=== PATIENT | male | born 1945 | race African-American/Black ===

== ENCOUNTER 2017-04-03 08:32 | Inpatient (IN) | payer OTHER, MEDICARE ==
[~2017-04-03] VITALS: Ht 167.6 cm; Wt 75.8 kg
[2017-04-03] VITALS (8 sets, daily range): BP systolic 119–142; BP diastolic 74–88; PULSE 85–135; RESP 18–26; TEMP 97.2–97.7; O2SAT 91–96
[~2017-04-03 08:32] MED LIST: LASI20TA PO; METO25CR PO; POTA-243
[2017-04-03] MEDS ORDERED: SODIUM CHLORIDE 0.9% FLUSH 10 ML FLUSH IVF PRN (09:00)
[2017-04-03 09:27] LABS: AUTOMATED NEUTROPHIL # 4.2 TH/MM3 (1.8-7.7); BASOPHIL # 0.1 TH/MM3 (0-0.2); EOSINOPHIL # 0.1 TH/MM3 (0-0.4); EOSINOPHIL % 2.1 % (0.0-4.0); HEMATOCRIT 52.5 % (39.0-51.0); HEMOGLOBIN 17.1 GM/DL (13.0-17.0); LYMPH % 21.8 % (9.0-44.0); LYMPHOCYTE # 1.4 TH/MM3 (1.0-4.8); MEAN CELL VOLUME 89.4 FL (80.0-100.0); MEAN CORPUSCULAR HEMOGLOBIN 29.2 PG (27.0-34.0); MEAN CORPUSCULAR HGB CONC 32.7 % (32.0-36.0); MEAN PLATELET VOLUME 8.3 FL (7.0-11.0); MONO % 10.1 % (0.0-8.0); MONOCYTE # 0.6 TH/MM3 (0-0.9); PLATELET COUNT 256 TH/MM3 (150-450); RED BLOOD COUNT 5.87 MIL/MM3 (4.50-5.90); RED CELL DISTRIBUTION WIDTH 16.7 % (11.6-17.2); WHITE BLOOD COUNT 6.4 TH/MM3 (4.0-11.0)
[2017-04-03 09:36] LABS: INTERNATIONAL NORMALIZED RATIO 1.2 RATIO
--- NOTE | 2017-04-03 09:36 | RADRPT ---
EXAM DATE/TIME: 04/03/2017 09:20 [place] COMPARISON: No previous studies available for comparison. INDICATIONS : Short of breath. MEDICAL HISTORY : not known SURGICAL HISTORY : not known ENCOUNTER: Initial ACUITY: 1 day PAIN SCORE: Non-responsive. LOCATION: Bilateral chest FINDINGS: A single view of the chest demonstrates a small amount of airspace disease in the right midlung zone. Questionable small foci of the right lung base.. The cardiomediastinal contours are unremarkable. Osseous structures are intact. CONCLUSION: Minimal air space disease both in the right midlung field and right lung base could be areas of pneum onia. Amari Thomas MD on April 03, 2017 at 9:33 Board Certified Radiologist. This report was verified electronically.
[2017-04-03 09:55] LABS: ALBUMIN 2.5 GM/DL (3.4-5.0); ALKALINE PHOSPHATASE 125 U/L (45-117); ALT (GPT) 27 U/L (12-78); AST (GOT) 44 U/L (15-37); BICARBONATE 25.9 MEQ/L (21.0-32.0); BLOOD UREA NITROGEN 12 MG/DL (7-18); CALCIUM 8.8 MG/DL (8.5-10.1); CHLORIDE 102 MEQ/L (98-107); CREATININE 1.15 MG/DL (0.60-1.30); GLOMERULAR FILTRATION RATE 76 ML/MIN (>89); GLUCOSE,RANDOM 81 MG/DL (74-106); MAGNESIUM 1.9 MG/DL (1.5-2.5); SODIUM (NA) 136 MEQ/L (136-145); TOTAL BILIRUBIN ADULT 0.9 MG/DL (0.2-1.0); TROPONIN I LESS THAN 0.02 NG/ML (0.02-0.05)
[2017-04-03 09:56] LABS: TOTAL PROTEIN 8.3 GM/DL (6.4-8.2)
[2017-04-03] MEDS ORDERED: KETOROLAC TROMETHAMINE 30 MG/ML (IVP) VIAL IV PUSH ONE (10:30)
[2017-04-03] MEDS ORDERED: ACETAMINOPHEN 325 MG TAB PO ONE (10:30)
[2017-04-03] MEDS ORDERED: DILTIAZEM HCL 25 MG/5 ML VIAL IV ONE (10:30)
--- NOTE | 2017-04-03 10:54 | PD ---
HPI Chief Complaint: Skin Problem Time Seen by Provider: 08:52 Travel History International Travel<30 days: No Contact w/Intl Traveler<30days: No Traveled to known affect area: No History of Present Illness HPI The patient arrives to [place] from the [place] due to lower extremity edema. He is 72 years old. Ulcerations of chronic lower extremity wounds observed which the patient states are quite painful. They are constant. Worse with palpation as reported. The patient also reports some shortness of breath. He has no chest pain or cough or fever to report. No nausea vomiting or abdominal pain. Lower extremity edema is constant and gradually worsening. Past medical history includes COPD, CHF, hypertension and hyperlipidemia and reportedly "prediabetes. " PFSH Past Medical History Arthritis: Yes Cancer: No High Cholesterol: Yes Chest Pain: Yes Congestive Heart Failure: Yes COPD: Yes Endocrine: Yes (?PREDIABETES) Genitourinary: No Headaches: Yes Hypertension: Yes Immune Disorder: No Psychiatric: No Reproductive: No Respiratory: Yes Past Surgical History Body Medical Devices: PT DENIES Social History Alcohol Use: No Tobacco Use: No Substance Use: No Allergies-Medications (Allergen,Severity, Reaction): Coded Allergies: Penicillins (Verified Allergy, Unknown, 04/03/17) Reported Meds & Prescriptions Reported Meds & Active Scripts Active No Active Prescriptions or Reported Medications Review of Systems Except as stated in HPI: all other systems reviewed are Neg General / Constitutional: No: Fever Respiratory: Positive: Shortness of Breath Physical Exam Narrative GENERAL: 72-year-old male, no acute distress sitting upright in bed speaking full sentences SKIN: Warm and dry. There are areas of unroofed epidermis on the lower extremities 1 is approximately 7 cm wide well-circumscribed with a focus of what appears to be a blister appearance in the base of the ulcer is otherwise beefy red. On the right lower extremity there is a beefy red well-demarcated unroofing epidermis. HEAD: Nontraumatic. Normocephalic. EYES: Pupils equal and round. No scleral icterus. No injection or drainage. ENT: No nasal bleeding or discharge. Mucous membranes pink and moist. NECK: Trachea midline. No JVD. CARDIOVASCULAR: Irregular. Rate 130. RESPIRATORY: Minimal tachypnea at a rate of about 22 breaths per minute. GASTROINTESTINAL: Abdomen soft, non-tender, nondistended. Hepatic and splenic margins not palpable. MUSCULOSKELETAL: 4+ pitting edema bilaterally. No gross deformity otherwise. Wounds as described above. NEUROLOGICAL: Awake and alert. No obvious cranial nerve deficits. Motor grossly within normal limits. Five out of 5 muscle strength in the arms and legs. Normal speech. PSYCHIATRIC: Appropriate mood and affect; insight and judgment normal. Data Data Last Documented VS Vital Signs Date Time Temp Pulse Resp B/P (MAP) Pulse Ox O2 Delivery O2 Flow Rate FiO2 04/03/17 09:14 96 Nasal Cannula 2.00 04/03/17 08:46 97.7 135 26 142/86 (104) Vital signs reviewed Orders Orders Complete Blood Count With Diff (04/03/17 08:59) Comprehensive Metabolic Panel (04/03/17 08:59) B-Type Natriuretic Peptide (04/03/17 08:59) Act Partial Throm Time (Ptt) (04/03/17 08:59) Prothrombin Time / Inr (Pt) (04/03/17 08:59) Magnesium (Mg) (04/03/17 08:59) Ckmb (Isoenzyme) Profile (04/03/17 08:59) Troponin I (04/03/17 08:59) Urinalysis - C+S If Indicated (04/03/17 08:59) Iv Access Insert/Monitor (04/03/17 08:59) Electrocardiogram (04/03/17 08:59) Ecg Monitoring (04/03/17 08:59) Oximetry (04/03/17 08:59) Oxygen Administration (04/03/17 08:59) Chest, Single Ap (04/03/17 08:59) Sodium Chloride 0.9% Flush (Ns Flush) (04/03/17 09:00) CKMB (04/03/17 09:00) CKMB% (04/03/17 09:00) Diltiazem Inj (Cardizem Inj) (04/03/17 10:30) Acetaminophen (Tylenol) (04/03/17 10:30) Ketorolac Inj (Toradol Inj) (04/03/17 10:30) Furosemide Inj (Lasix Inj) (04/03/17 11:00) Admit To Inpatient (04/03/17 ) Vital Signs (Adult) Q4H (04/03/17 10:53) Activity Oob With Assistance (04/03/17 10:53) Motion Designer / Telemetry .CONTINUOUS (04/03/17 10:53) Intake + Output JUAN [place]IEGO.QSHIFT (04/03/17 10:53) Diet Heart Healthy (04/03/17 Lunch) Sodium Chloride 0.9% Flush (Ns Flush) (04/03/17 11:00) Sodium Chloride 0.9% Flush (Ns Flush) (04/03/17 21:00) Acetaminophen (Tylenol) (04/03/17 11:00) Inpatient Certification (04/03/17 ) Diltiazem (Cardizem) (04/03/17 13:00) Thyroid Stimulating Hormone (04/03/17 10:58) Echo 2d Comp With Doppler (04/03/17 ) Urine Culture (04/03/17 10:15) Admit Order (Ed Use Only) (04/03/17 ) Motion Designer / Telemetry JUAN DIEGO.Q8H (04/03/17 11:22) Vital Signs (Adult) Q4H (04/03/17 11:22) Diet Npo (04/03/17 Lunch) Activity Bed Rest (04/03/17 11:22) Labs Laboratory Tests Test 04/03/17 09:00 04/03/17 10:15 White Blood Count 6.4 TH/MM3 Red Blood Count 5.87 MIL/MM3 Hemoglobin 17.1 GM/DL Hematocrit 52.5 % Mean Corpuscular Volume 89.4 FL Mean Corpuscular Hemoglobin 29.2 PG Mean Corpuscular Hemoglobin Concent 32.7 % Red Cell Distribution Width 16.7 % Platelet Count 256 TH/MM3 Mean Platelet Volume 8.3 FL Neutrophils (%) (Auto) 65.0 % Lymphocytes (%) (Auto) 21.8 % Monocytes (%) (Auto) 10.1 % Eosinophils (%) (Auto) 2.1 % Basophils (%) (Auto) 1.0 % Neutrophils # (Auto) 4.2 TH/MM3 Lymphocytes # (Auto) 1.4 TH/MM3 Monocytes # (Auto) 0.6 TH/MM3 Eosinophils # (Auto) 0.1 TH/MM3 Basophils # (Auto) 0.1 TH/MM3 CBC Comment DIFF FINAL Differential Comment Prothrombin Time 12.0 SEC Prothromb Time International Ratio 1.2 RATIO Activated Partial Thromboplast Time 25.9 SEC Blood Urea Nitrogen 12 MG/DL Creatinine 1.15 MG/DL Random Glucose 81 MG/DL Total Protein 8.3 GM/DL Albumin 2.5 GM/DL Calcium Level 8.8 MG/DL Magnesium Level 1.9 MG/DL Alkaline Phosphatase 125 U/L Aspartate Amino Transf (AST/SGOT) 44 U/L Alanine Aminotransferase (ALT/SGPT) 27 U/L Total Bilirubin 0.9 MG/DL Sodium Level 136 MEQ/L Potassium Level 5.7 MEQ/L Chloride Level 102 MEQ/L Carbon Dioxide Level 25.9 MEQ/L Anion Gap 8 MEQ/L Estimat Glomerular Filtration Rate 76 ML/MIN Total Creatine Kinase 224 U/L Creatine Kinase MB 2.0 NG/ML Troponin I LESS THAN 0.02 NG/ML B-Type Natriuretic Peptide 1912 PG/ML Urine Color YELLOW Urine Turbidity HAZY Urine pH 5.5 Urine Specific [place] 1.012 Urine Protein 30 mg/dL Urine Glucose (UA) NEG mg/dL Urine Ketones NEG mg/dL Urine Occult Blood MOD Urine Nitrite POS Urine Bilirubin NEG Urine Urobilinogen LESS THAN 2.0 MG/DL Urine Leukocyte Esterase LARGE Urine RBC 4 /hpf Urine WBC 67 /hpf Urine WBC Clumps FEW Urine Squamous Epithelial Cells 1 /hpf Urine Calcium Oxalate Crystals MOD /hpf Urine Bacteria MANY /hpf Urine Mucus FEW /lpf Microscopic Urinalysis Comment CULTURE INDICATED MDM Medical Decision Making Medical Screen Exam Complete: Yes Emergency Medical Condition: Yes Medical Record Reviewed: Yes Differential Diagnosis Cellulitis, abscess, A. fib RVR, CHF exacerbation Narrative Course CBC & BMP Diagram 04/03/17 09:00 Total Protein 8.3 H, Albumin 2.5 L, Calcium Level 8.8, Magnesium Level 1.9, Alkaline Phosphatase 125 H, Aspartate Amino Transf (AST/SGOT) 44 H, Alanine Aminotransferase (ALT/SGPT) 27, Total Bilirubin 0.9 BNP 1912 Urinalysis shows a UTI Hyperkalemia observed and there is no evidence of hyperkalemic EKG change and a repeat potassium has been ordered EKG: A. fib RVR nonspecific ST changes throughout Patient has a UTI and potentially pneumonia. Rocephin and azithromycin to be ordered. Admission to the hospitalist service. He is hemodynamically stable and appropriate for floor with telemetry. Diagnosis Primary Impression: UTI (urinary tract infection) Qualified Codes: N39.0 - Urinary tract infection, site not specified; R31.9 - Hematuria, unspecified Additional Impressions: PNA (pneumonia) Qualified Codes: J18.9 - Pneumonia, unspecified organism Acute exacerbation of CHF (congestive heart failure) Qualified Codes: I50.9 - Heart failure, unspecified Hyperkalemia Admitting Information Admitting Physician Requests: Observation Scripts No Active Prescriptions or Reported Meds Favian Delgado MD Apr 03, 2017 10:54
[2017-04-03] MEDS ORDERED: FUROSEMIDE 40 MG/4 ML VIAL IV PUSH ONE (11:00)
[2017-04-03] MEDS ORDERED: SODIUM CHLORIDE 0.9% FLUSH 10 ML FLUSH IV FLUSH PRN (11:00)
[2017-04-03] MEDS ORDERED: ACETAMINOPHEN 325 MG TAB PO PRN (11:00)
[2017-04-03 11:16] LABS: BACTERIA, URINE MANY /hpf; BILIRUBIN, URINE NEG (NEG); BLOOD, URINE MOD (NEG); CALCIUM OXALATE CRYSTALS,URINE MOD /hpf; GLUCOSE,URINE NEG (NEG); KETONE, URINE NEG (NEG); MUCUS URINE FEW /lpf (OCC); NITRITE,URINE POS (NEG); PH, URINE 5.5 (5.0-8.5); SQUAMOUS EPITHELIAL CELL URINE 1 /hpf (0-5); URINE COLOR YELLOW (YELLW/STRAW); URINE LEUKOCYTE ESTERASE LARGE (NEG); WHITE BLOOD CELL CLUMPS FEW
--- NOTE | 2017-04-03 12:12 | HHI.HP ---
[facility] No Primary Care Physician Admission Diagnosis CHF Exacerbation; LE Edema and wounds, atrial fibrillation with RVR Diagnoses: Chief Complaint: Lower extremity edema Travel History International Travel<30 Days: No Contact w/Intl Traveler <30 Da: No Traveled to Known Affected Are: No History of Present Illness This is a 72-year-old male with a history of question of COPD on oxygen, history of CHF, and history of noncompliance who presented with lower extremity edema. Patient stated that in 2012 he presented with the same symptom lotion edema with ulcerating wounds. This had occurred multiple times over the past years and [facility]'s [facility] the [place] [facility] not been concerned with that so he stopped seeing the doctor in 2012. Patient stated that he came today because he still felt that the edema worsened the last week. He stated that the blisters are intermittent and throughout the past years. Denies any fever. Patient denies chest pain, shortness of breathing, cough, palpation, lightheadedness or dizziness. During patient's examination by the emergency medicine physician he was found to have atrial fibrillation with RVR. Patient is a poor historian. Patient stopped taking medication since 2012. All other review system reviewed and negative. Past Family Social History Past Medical History Congestive heart failure Hypertension Hyperlipidemia Prediabetes COPD Past Surgical History None. Reported Medications Reported Meds & Active Scripts Active No Active Prescriptions or Reported Medications Allergies: Coded Allergies: Penicillins (Verified Allergy, Unknown, 04/03/17) Active Ordered Medications Current Medications Sodium Chloride (NS Flush) 2 ml UNSCH PRN IVF FLUSH AFTER USING IV ACCESS Last administered on 04/03/17at 10:32; Start 04/03/17 at 09:00; Stop 04/03/17 at 11:48 ; Status DC Diltiazem HCl (Cardizem Inj) 10 mg ONCE ONCE IV Last administered on at 10:31; Start 04/03/17 at 10:30; Stop 04/03/17 at 10:31; Status DC Acetaminophen (Tylenol) 650 mg ONCE ONCE PO Last administered on 04/03/17at 10: 32; Start 04/03/17 at 10:30; Stop 04/03/17 at 10:31; Status DC Ketorolac Tromethamine (Toradol Inj) 15 mg ONCE ONCE IV PUSH Last administered on 04/03/17at 10:32; Start 04/03/17 at 10:30; Stop 04/03/17 at 10:31 ; Status DC Furosemide (Lasix Inj) 40 mg ONCE ONCE IV PUSH Last administered on 04/03/17at 11:24; Start 04/03/17 at 11:00; Stop 04/03/17 at 11:01; Status DC Sodium Chloride (NS Flush) 2 ml UNSCH PRN IV FLUSH FLUSH AFTER USING IV ACCESS ; Start 04/03/17 at 11:00 Sodium Chloride (NS Flush) 2 ml BID IV FLUSH ; Start 04/03/17 at 21:00 Acetaminophen (Tylenol) 650 mg Q4H PRN PO TEMP > 100.4; Start 04/03/17 at 11:00 Diltiazem HCl (Cardizem) 30 mg QID PO ; Start 04/03/17 at 13:00 Furosemide (Lasix) 20 mg BID@,18 PO ; Start 04/03/17 at 18:00 Diltiazem HCl 125 mg/Sodium Chloride 125 ml @ 5 mls/hr TITRATE PRN IV Tachycardia; Start 04/03/17 at 12:15; Status UNV Family History Mom history of diabetes and bone cancer. Social History Tobacco: [id number] history quit in 2011. Denies any alcohol was a drug use. Physical Exam Vital Signs Vital Signs Date Time Temp Pulse Resp B/P (MAP) Pulse Ox O2 Delivery O2 Flow Rate FiO2 04/03/17 11:24 92 18 135/81 (99) 96 Nasal Cannula 2.00 04/03/17 09:14 96 Nasal Cannula 2.00 04/03/17 09:14 96 Nasal Cannula 2.00 04/03/17 08:46 97.7 135 26 142/86 (104) 92 Physical Exam GENERAL: This is a well-nourished, well-developed patient, in no apparent distress. SKIN: Bilateral lower extremity edema with wounds and blister. No erythema noted. Eschar noted on one of the ulcerating wounds. No purulent discharge. HEAD: Atraumatic. Normocephalic. No temporal or scalp tenderness. EYES: Pupils equal round and reactive. Extraocular motions intact. No scleral icterus. No injection or drainage. ENT: Nose without bleeding, purulent drainage or septal hematoma. Throat without erythema, tonsillar hypertrophy or exudate. Uvula midline. Airway patent. NECK: Trachea midline. No JVD or lymphadenopathy. Supple, nontender, no meningeal signs. CARDIOVASCULAR: Irregular rate and irregular rhythm rate at the bedside varies from 90 to 130s. Without murmurs, gallops, or rubs. RESPIRATORY: Bilateral basilar crackles. No wheezing or rhonchi noted. GASTROINTESTINAL: Abdomen soft, non-tender, nondistended. No hepato-splenomegaly , or palpable masses. No guarding. MUSCULOSKELETAL: Extremities without clubbing, cyanosis, or edema. No joint tenderness, effusion, or edema noted. No calf tenderness. Negative Homans sign bilaterally. NEUROLOGICAL: Awake and alert. Cranial nerves II through XII intact. Motor and sensory grossly within normal limits. Five out of 5 muscle strength in all muscle groups. Normal speech. Laboratory Laboratory Tests Test 04/03/17 09:00 04/03/17 10:15 White Blood Count 6.4 Red Blood Count 5.87 Hemoglobin 17.1 Hematocrit 52.5 Mean Corpuscular Volume 89.4 Mean Corpuscular Hemoglobin 29.2 Mean Corpuscular Hemoglobin Concent 32.7 Red Cell Distribution Width 16.7 Platelet Count 256 Mean Platelet Volume 8.3 Neutrophils (%) (Auto) 65.0 Lymphocytes (%) (Auto) 21.8 Monocytes (%) (Auto) 10.1 Eosinophils (%) (Auto) 2.1 Basophils (%) (Auto) 1.0 Neutrophils # (Auto) 4.2 Lymphocytes # (Auto) 1.4 Monocytes # (Auto) 0.6 Eosinophils # (Auto) 0.1 Basophils # (Auto) 0.1 CBC Comment DIFF FINAL Differential Comment Prothrombin Time 12.0 Prothromb Time International Ratio 1.2 Activated Partial Thromboplast Time 25.9 Blood Urea Nitrogen 12 Creatinine 1.15 Random Glucose 81 Total Protein 8.3 Albumin 2.5 Calcium Level 8.8 Magnesium Level 1.9 Alkaline Phosphatase 125 Aspartate Amino Transf (AST/SGOT) 44 Alanine Aminotransferase (ALT/SGPT) 27 Total Bilirubin 0.9 Sodium Level 136 Potassium Level 5.7 Chloride Level 102 Carbon Dioxide Level 25.9 Anion Gap 8 Estimat Glomerular Filtration Rate 76 Total Creatine Kinase 224 Creatine Kinase MB 2.0 Troponin I LESS THAN 0.02 B-Type Natriuretic Peptide 1912 Thyroid Stimulating Hormone 3rd Gen 3.880 Urine Color YELLOW Urine Turbidity HAZY Urine pH 5.5 Urine Specific [place] 1.012 Urine Protein 30 Urine Glucose (UA) NEG Urine Ketones NEG Urine Occult Blood MOD Urine Nitrite POS Urine Bilirubin NEG Urine Urobilinogen LESS THAN 2.0 Urine Leukocyte Esterase LARGE Urine RBC 4 Urine WBC 67 Urine WBC Clumps FEW Urine Squamous Epithelial Cells 1 Urine Calcium Oxalate Crystals MOD Urine Bacteria MANY Urine Mucus FEW Microscopic Urinalysis Comment CULTURE INDICATED Date/Time Source Procedure Growth Status 04/03/17 10:15 Urine Clean Catch Urine Culture Pending Received Result Diagram: 04/03/17 0900 04/03/17 0900 Imaging Last Impressions Chest X-Ray 04/03/17 0859 Signed Impressions: Service Date/Time: March 09:20 - CONCLUSION: Minimal air space disease both in the right midlung field and right lung base could be areas of pneumonia. Amari Thomas MD [place] VTE Risk Assessment Caprini VTE Risk Assessment: Mod/High Risk (score >= 2) Caprini Risk Assessment Model Point Value = 1 Point Value = 2 Point Value = 3 Point Value = 5 Age 41-60 Minor surgery BMI > 25 kg/m2 Swollen legs Varicose veins or History of unexplained or recurrent spontaneous Oral contraceptives or hormone replacement Sepsis (< 1 month) Serious lung disease, including pneumonia (< 1 month) Abnormal pulmonary function Acute myocardial infarction Congestive heart failure (< 1 month) History of inflammatory bowel disease Medical patient at bed rest Age 61-74 Arthroscopic surgery Major open surgery (> 45 min) Laparoscopic surgery (> 45 min) Malignancy Confined to bed (> 72 hours) Immobilizing plaster cast Central venous access Age >= 75 History of VTE Family history of VTE Factor V Leiden Prothrombin [id number] Lupus anticoagulant Anticardiolipin antibodies Elevated serum homocysteine Heparin-induced thrombocytopenia Other congenital or acquired thrombophilia Stroke (< 1 month) Elective arthroplasty Hip, pelvis, or leg fracture Acute spinal cord injury (< 1 month) Prophylaxis Regimen Total Risk Factor Score Risk Level Prophylaxis Regimen 0-1 Low Early ambulation 2 Moderate Order ONE of the following: *Sequential Compression Device (SCD) *Heparin 5000 units SQ BID 3-4 Higher Order ONE of the following medications: *Heparin 5000 units SQ TID *Enoxaparin/Lovenox 40 mg SQ daily (WT < 150 kg, CrCl > 30 mL/min) *Enoxaparin/Lovenox 30 mg SQ daily (WT < 150 kg, CrCl > 10-29 mL/min) *Enoxaparin/Lovenox 30 mg SQ BID (WT < 150 kg, CrCl > 30 mL/min) AND/OR *Sequential Compression Device (SCD) 5 or more Highest Order ONE of the following medications: *Heparin 5000 units SQ TID (Preferred with Epidurals) *Enoxaparin/Lovenox 40 mg SQ daily (WT < 150 kg, CrCl > 30 mL/min) *Enoxaparin/Lovenox 30 mg SQ daily (WT < 150 kg, CrCl > 10-29 mL/min) *Enoxaparin/Lovenox 30 mg SQ BID (WT < 150 kg, CrCl > 30 mL/min) AND *Sequential Compression Device (SCD) Assessment and Plan Assessment and Plan This is a 72-year-old male past history of COPD on oxygen, CHF, and noncompliance who presented with chronic lower extremity edema and wounds found to have atrial fibrillation with RVR Atrial fibrillation with RVR -Patient is asymptomatic. -Patient given a dose of Cardizem 10 mg IV. Heart rate continues to be in the 90s to 130s. Was started on Cardizem drip. Will also start oral Cardizem he milligrams 4 times a day. -We will obtain echo. Troponin negative. Will trend cardiac enzymes and order TSH. -CHADSVASC2 score 2 (age and CHF.). Educated extensively on the risks, benefits , side effects of anticoagulation and preventing embolic stroke. Patient declined and stated that he had multiple friends on anticoagulation and did poorly on them. I again explained patient's concern and reassure patient that he would benefit from anticoagulation despite the risks. He stated that he would think about it. In the meantime will start aspirin. CHF exacerbation -Chest x-ray shows minimal left airspace disease in the mid lung. BMP 1912. Patient also had lower extremity edema. -Start oral Lasix. Chronic lower extremity edema and wounds -Patient is noncompliant. There are no signs of infection. Labs obtain no leukocytosis. Remains afebrile. -Wound secondary to edema. He has not seen a physician or taken any medication since 2012. -Will give Lasix and need to control atrial fibrillation with RVR. -Consult wound care nurse. Chronic respiratory failure -Combination of CHF and COPD. -Continue with oxygen. At home patients on 5 L. Hyperkalemia -Due to hemolyzes. DVT prophylaxis -Lovenox. Discussed Condition With patient and his nurse Physician Certification 2 Midnight Certification Type: Admission for Inpatient Services Order for Inpatient Services The services are ordered in accordance with Medicare regulations or non- Medicare payer requirements, as applicable. In the case of services not specified as inpatient-only, they are appropriately provided as inpatient services in accordance with the 2-midnight benchmark. Estimated LOS (days): 2 2 days is the estimated time the patient will need to remain in the hospital, assuming treatment plan goals are met and no additional complications. Post-Hospital Plan: Home Ping Solitario MD Apr 03, 2017 12:12
[2017-04-03] MEDS ORDERED: DILTIAZEM INJ 125 MG in SODIUM CHLORIDE 0.9% INJ 100 ML IV PRN (12:15)
[2017-04-03] MEDS: DILTIAZEM HCL 30 MG TAB PO SCH ×3 (13:16→20:45)
[2017-04-03] MEDS: ASPIRIN EC 81 MG TABEC PO SCH (13:17)
[2017-04-03] MEDS: ENOXAPARIN SODIUM 40 MG/0.4 ML SYRINGE SQ SCH (13:19)
[2017-04-03] MEDS ORDERED: cefTRIAXone INJ 1,000 MG in SODIUM CHLORIDE 0.9% INJ 100 ML IV ONE (13:30)
[2017-04-03] MEDS ORDERED: AZITHROMYCIN INJ 500 MG in SODIUM CHLOR 0.9% 250 ML INJ 250 ML IV ONE (13:30)
[2017-04-03] MEDS: FUROSEMIDE 20 MG TAB PO SCH (18:24)
[2017-04-03] MEDS: SODIUM CHLORIDE 0.9% FLUSH 10 ML FLUSH IV FLUSH SCH (20:46)
--- NOTE | 2017-04-03 21:46 | EKG ---
Date Performed: 04/03/2017 Time Performed: 09:34:12 PTAGE: 72 years EKG: Sinus Tachycardia Diffuse nonspecific ST-T abnormalities ABNORMAL ECG PREVIOUS TRACING : 11/06/2012 17.38 Compared to previous tracing sinus tachycardia and st-t abn ormalities are new DOCTOR: Kevin Skaggs Interpretating Date/Time 04/03/2017 21:45:31
[2017-04-04] VITALS (11 sets, daily range): BP systolic 106–129; BP diastolic 69–88; PULSE 98–130; RESP 18–24; TEMP 97.6–98.5; O2SAT 88–92
[2017-04-04] MEDS: SODIUM CHLORIDE 0.9% FLUSH 10 ML FLUSH IV FLUSH SCH ×2 (09:00→22:54)
[2017-04-04 09:45] LABS: HEMOGLOBIN 14.7 GM/DL (13.0-17.0); MEAN CELL VOLUME 87.9 FL (80.0-100.0); MEAN CORPUSCULAR HGB CONC 34.1 % (32.0-36.0); MEAN PLATELET VOLUME 8.5 FL (7.0-11.0); PLATELET COUNT 242 TH/MM3 (150-450); RED BLOOD COUNT 4.89 MIL/MM3 (4.50-5.90); RED CELL DISTRIBUTION WIDTH 16.4 % (11.6-17.2); WHITE BLOOD COUNT 5.8 TH/MM3 (4.0-11.0)
[2017-04-04] MEDS: DILTIAZEM HCL 30 MG TAB PO SCH ×4 (09:45→22:51)
[2017-04-04] MEDS: ASPIRIN EC 81 MG TABEC PO SCH (09:45)
[2017-04-04] MEDS: FUROSEMIDE 20 MG TAB PO SCH ×2 (09:45→18:40)
[2017-04-04 10:07] LABS: BICARBONATE 25.8 MEQ/L (21.0-32.0); CALCIUM 8.3 MG/DL (8.5-10.1); CREATININE 0.82 MG/DL (0.60-1.30)
--- NOTE | 2017-04-04 12:47 | HHI.PR ---
Subjective Remarks Patient reported having cough with sneezing I discussed with the wound care at the bedside and has a scar tissue in his left lower extremity Objective Vitals Vital Signs Date Time Temp Pulse Resp B/P (MAP) Pulse Ox O2 Delivery O2 Flow Rate FiO2 04/04/17 11:06 127 04/04/17 09:50 93 Nasal Cannula 3.00 04/04/17 05:50 Nasal Cannula 3.00 04/04/17 05:50 98.5 104 18 119/80 (93) 91 04/04/17 04:18 99 04/04/17 00:37 Nasal Cannula 3.00 04/04/17 00:37 98.4 117 18 114/77 (89) 92 04/03/17 23:44 98 04/03/17 21:28 Nasal Cannula 3.00 04/03/17 21:28 97.2 91 20 125/78 (94) 91 04/03/17 19:52 90 04/03/17 17:15 97.2 93 20 139/74 (95) 95 04/03/17 13:22 85 22 119/88 (98) 94 Nasal Cannula 2.00 I/O 04/03/17 04/03/17 04/03/17 04/04/17 04/04/17 04/04/17 07:00 15:00 23:00 07:00 15:00 23:00 Intake Total 180 ml Output Total 650 ml 900 ml Balance -650 ml -720 ml Intake Oral 180 ml Output Urine Total 650 ml 900 ml # Voids 1 # Bowel Movements 0 Result Diagram: 04/04/17 0834 04/04/17 0834 Objective Remarks - - GENERAL: This is a well-nourished, well-developed patient, in no apparent distress. CARDIOVASCULAR: Regular rate and irregular rhythm without murmurs, gallops, or rubs. RESPIRATORY: Clear to auscultation. Breath sounds equal bilaterally. No wheezes , rales, or rhonchi. GASTROINTESTINAL: Abdomen soft, non-tender, nondistended. Normal, active bowel sounds MUSCULOSKELETAL: Left lower extremity with 7 cm ulcer which has eschar tissue in it, right lower extremity with 10 cm ulcer which show granulation healing NEURO: Alert & Oriented x4 to person, place, time, situation. Moves all ext x4 A/P Assessment and Plan 04/04: Chest x-ray showing right lobe and base airspace disease, I will place patient back on Rocephin and Zithromax, I discussed with the wound care patient had necrotic tissue on the left leg will consult podiatry 2-D echo came showing ejection fraction of 15% home will consult cardiology for advanced heart failure management, monitor BMP last value was 1911 A/P: This is a 72-year-old male past history of COPD on oxygen, CHF, and noncompliance who presented with chronic lower extremity edema and wounds found to have atrial fibrillation with RVR Atrial fibrillation with RVR -Patient is asymptomatic. -Patient given a dose of Cardizem 10 mg IV. Heart rate continues to be in the 90s to 130s. Was started on Cardizem drip. Will also start oral Cardizem he milligrams 4 times a day. -We will obtain echo. Troponin negative. Will trend cardiac enzymes and order TSH. -CHADSVASC2 score 2 (age and CHF.). Patient declined anticoagulation he is convinced it's of no benefit. Extensive discussion and education about beneficial anticoagulation for stroke prevention Community-acquired pneumonia showed on a chest x-ray, Minimal airspace disease in right midlung and right base Patient received Rocephin Zithromax in ED I will resume that Continue O2, DuoNeb CHF exacerbation -Chest x-ray shows minimal left airspace disease in the mid lung. BMP 191. Patient also had lower extremity edema. -Start oral Lasix. Chronic lower extremity edema and wounds -Patient is noncompliant. There are no signs of infection. Labs obtain no leukocytosis. Remains afebrile. -Awaiting 2-D echo -Care Right mid and lower lobe pneumonia with respiratory failure -Combination of CHF and COPD. -Continue with oxygen. At home patients on 5 L. Hyperkalemia -Due to hemolyzes. DVT prophylaxis -Lovenox. Josué Gallegos MD Apr 04, 2017 12:47
[2017-04-04] MEDS: AZITHROMYCIN INJ 500 MG in SODIUM CHLOR 0.9% 250 ML INJ 250 ML IV SCH (13:16)
[2017-04-04] MEDS: ENOXAPARIN SODIUM 40 MG/0.4 ML SYRINGE SQ SCH (13:17)
--- NOTE | 2017-04-04 13:37 | PD.WCN.NOT ---
Wound Consult Description: Received consult for lower extremity wound management from Doctor Ping Solitario Communicated with: Doctor Rosy and RN Markus [address] [place] [address] Recommendation: 1.Please consult podiatry for possible debridement of L lower leg ulceration. 2. Please cleanse wound to bilateral lower extremity wounds with wound cleanser or normal saline and pat dry. 3. Apply Optilock over wound to R lower freitas ulceration and secure with rolled gauze and tape. Change every 3 days or PRN if saturated or dislodged. 4. Apply oil emulsion gauze (adaptic) over open ulceration of L lower leg. Cover with ABD pad and secure with rolled gauze and tape. Change daily or PRN if saturated or dislodged, until seen by podiatry for possible debridement , then defer to podiatry for wound care orders. Additional Information: Patient seen on for evaluation of lower extremity wound management. Patient is laying in bed for wound assessment.Bilateral lower extremities present with pitting edema that appears to have decreased recently due the wrinkled appearance of skin. Dressings removed to reveal wounds to bilateral lower extremities. Skin to periwound presents with dark discoloration and very warm to touch. Wound to R lower freitas presents with ~80% red granulated tissue and ~20% thin yellow exudate. Wound drainage is moderate and yellow/ sero- sanguinous. Wound measures 7.5cm x 4.3 cm x ~0.1cm.Wound margins are well defined. Cleansed wound with normal saline and applied Optilock dressing in place and secured with rolled gauze and tape. Wound to L lower freitas presents with ~40% black eschar, 10% yellow slough and ~50 % pink tissue. Wound drainage is scant and yellow/ serous without odor.Wound measures 7cm x 5 cm x eschar.Wound margins are well defined, wound has a round shape. Wound to L upper freitas presents with~80% pink tissue and ~20% dried yellow exudate. Wound bed appears dry without active drainage or odor. Wound measures ~ 2cm x ~3cm x ~<0.1cm Cleansed both wounds on L freitas with normal saline and patted dry. Applied oil emulsion gauze in single layer just over open wound beds and covered with ABD pad. Secured dressings with rolled gauze and tape.Recommendations are noted above. Lyla Fuller [facility] Apr 04, 2017 13:37
[2017-04-04] MEDS: cefTRIAXone INJ 1,000 MG in SODIUM CHLORIDE 0.9% INJ 100 ML IV SCH (15:18)
--- NOTE | 2017-04-04 19:24 | ECHRPT ---
Indication: A-FIB CONCLUSIONS The left ventricular systolic function is severely reduced with an estimated ejection fraction of 15 %. Normal left ventricular size. Mild concentric left ventricular hypertrophy. There is global hypoki nesis. Mild thickening of the mitral valve leaflets. Mild mitral valve regurgitation. Trileaflet aortic valve. Mild to moderate aortic regurgitation. Structurally normal tricuspid valve. There is mild tricuspid valve regurgitation. The estimated pulmonary arterial pressure is 34 mmHg. BP: 142 / 86 HR: 135 Rhythm: Atrial fibrillation MEASUREMENTS (Male / Female) Normal Values Technical Quality:Good 2D ECHO LV Diastolic Diameter PLAX 4.6 cm 4.2 - 5.9 / 3.9 - 5.3 cm LV Systolic Diameter PLAX 4.3 cm IVS Diastolic Thickness 1.4 cm 0.6 - 1.0 / 0.6 - 0.9 cm LVPW Diastolic Thickness 1.5 cm 0.6 - 1.0 / 0.6 - 0.9 cm LV Relative Wall Thickness 0.6 RV Internal Dim ED PLAX 3.9 cm LVOT Diameter 2.0 cm LA Systolic Diameter LX 2.8 cm 3.0 - 4.0 / 2.7 - 3.8 cm LV Ejection Fraction MOD 4C 20.2 % LV Cardiac Index MOD 4C 1258.0 cm/minm LV Ejection Fraction 4C AL 21.1 % LV Cardiac Index 4C AL 1359.4 cm/minm M-MODE Aortic Root Diameter MM 4.1 cm LA Systolic Diameter MM 2.5 cm LA Ao Ratio MM 0.6 AV Cusp Separation MM 1.7 cm DOPPLER AV Peak Velocity 110.0 cm/s AV Peak Gradient 4.8 mmHg AI Peak Velocity 479.0 cm/s AI Peak Gradient 91.8 mmHg AI Pressure Half Time 190.0 ms LVOT Peak Velocity 80.9 cm/s LVOT Peak Gradient 2.6 mmHg AV Area Cont Eq pk 2.3 cm MV Area PHT 6.9 cm LV E' Lateral Velocity 2.7 cm/s LV E' Septal Velocity 3.1 cm/s TR Peak Velocity 247.0 cm/s TR Peak Gradient 24.4 mmHg Right Atrial Pressure 10.0 mmHg Pulmonary Artery Systolic Pressu 34.4 mmHg Right Ventricular Systolic Press 34.4 mmHg FINDINGS LEFT VENTRICLE The left ventricular systolic function is severely reduced with an estimated ejection fraction of 15 %. Normal left ventricular size. Mild concentric left ventricular hypertrophy. There is global hypokinesis. RIGHT VENTRICLE Normal right ventricular size and systolic function. LEFT ATRIUM The left atrial size is normal. RIGHT ATRIUM The right atrial size is normal. ATRIAL SEPTUM Normal atrial septal thickness without atrial level shunting by limited color doppler interrogation. AORTA The aortic root and proximal ascending aorta are normal in size on limited imaging. MITRAL VALVE Mild thickening of the mitral valve leaflets. Mild mitral valve regurgitation. AORTIC VALVE Trileaflet aortic valve. Mild to moderate aortic regurgitation. TRICUSPID VALVE Structurally normal tricuspid valve. There is mild tricuspid valve regurgitation. The estimated pulmonary arterial pressure is 34 mmHg. PULMONARY VALVE Mild pulmonary valve regurgitation. VESSELS The inferior vena cava is normal in size. PERICARDIUM No pericardial effusion. Mateus Oro MD (Electronically Signed) Final Date:04 April 2017 19:24
[2017-04-04] MEDS ORDERED: ACETAMINOPHEN/HYDROcodone 325 MG/5 MG TAB PO ONE (22:30)
[2017-04-05] VITALS (9 sets, daily range): BP systolic 103–129; BP diastolic 68–86; PULSE 93–125; RESP 18–26; TEMP 97.2–99; O2SAT 85–98
[2017-04-05] MEDS ORDERED: PILL SPLITTER OTHER PRN (11:00)
--- NOTE | 2017-04-05 11:44 | MB ---
cc: ANA ALBA DPM DATE OF CONSULTATION: 04/05/2017. REASON FOR CONSULTATION: Bilateral lower extremity wounds, left worse than right. HISTORY OF PRESENT ILLNESS: This is a 72-year-old man who noticed extreme swelling and pain of his extremities. The wound care nurse evaluated the patient and wanted podiatric evaluation for possible debridement. The patient is not the best historian. He says he may have popped a blister. His legs get swollen from time to time but he does not describe any obvious incident or injury. PAST MEDICAL HISTORY: His past medical history is positive for: 1. Congestive heart failure. 2. Hypertension. 3. Hyperlipidemia. 4. Pre-diabetes. 5. COPD. PAST SURGICAL HISTORY: None listed. INPATIENT MEDICATIONS: 1. Ceftriaxone. 2. Azithromycin. Please get the complete medication list in the chart. ALLERGIES: PENICILLIN. PHYSICAL EXAMINATION: VITAL SIGNS: Temperature is 98, pulse rate 110, respiratory rate 22, blood pressure 128/86, he is satting 90% on four liters nasal cannula. Bilateral lower extremities are examined. There is noted to be pain upon palpating the pre-tibia and posterior calf. There is an expansile mixed necrotic granular pretibial ulcer with purulence noted from the edges. It is open and draining. There is no foul odor. There is no soft tissue emphysema. Right lower extremity there is noted to be a pre-tibial ulcer as well. It appears to be fully granular. Both these ulcers measure around 3 x 4 cm. No bone exposed. No probing deep. The patient is capable of dorsiflexion, plantar flexion, inversion, eversion. Distal pulses are palpable. The feet are warm. No obvious signs of below-ankle ulcerations. Sensation appears to be intact to light touch and deep pressure. LABORATORY FINDINGS: White blood cells 5.8, hemoglobin and hematocrit 14 and 43. Platelet count 242,000. Chem-7: Sodium 139, potassium 4.0, chloride 103, carbon dioxide 25.8, BUN is 10, random glucose is 78. Coagulation profile: PT 12.0. INR 1.2. Microbial findings: Gram-negative rods noted from the urine. ASSESSMENT AND PLAN: Bilateral lower extremity ulcers, left rule out deep tibial abscess and rule out deep venous thrombosis. My recommendation was a wound culture, which was taken today. Continue wound care. Venous Doppler, x-ray and MRI were all ordered to rule out deeper involvement. Will advise pending the studies. The patient need a bedside debridement versus operative debridement, depending on the depth of the ulcer and any infection. The patient has quite significant pain upon attempting to perform this bedside and he may need to have this done under anesthesia. I will evaluate in the a.m. and treat accordingly. YOVANY Dempsey/ZAKI /10:05 AM /11:27 AM
[2017-04-05] MEDS: ASPIRIN EC 81 MG TABEC PO SCH (11:53)
[2017-04-05] MEDS: DILTIAZEM HCL 30 MG TAB PO SCH ×4 (11:53→21:45)
[2017-04-05] MEDS: CARVEDILOL 6.25 MG TAB PO SCH ×2 (11:53→21:45)
[2017-04-05] MEDS: SODIUM CHLORIDE 0.9% FLUSH 10 ML FLUSH IV FLUSH SCH ×2 (11:53→21:46)
--- NOTE | 2017-04-05 12:00 | MB ---
cc: JOEY HENSLEY MD DATE OF CONSULTATION: 04/05/2017. REASON FOR CONSULTATION: Cardiomyopathy and atrial fibrillation. HISTORY OF PRESENT ILLNESS: The patient is a pleasant 72-year-old gentleman who it seems have a history of chronic atrial fibrillation, though he has not been taking any medications. The patient is an extremely poor historian and essentially unable to tell me anything except that he stopped taking medications because he was going to "let The Lord take care of things". He presented with significant lower extremity edema and shortness of breath and was brought to the hospital and admitted for clinical congestive heart failure. He is been put on oxygen and it seems like he is doing better, but again it is very difficult to get any significant history from him. An echocardiogram was performed, which showed a severely reduced ejection fraction of approximately 15%. PAST MEDICAL HISTORY: 1. Atrial fibrillation. 2. Congestive heart failure. 3. Hypertension. 4. COPD. 5. Hyperlipidemia. CURRENT MEDICATIONS: 1. Ceftriaxone. 2. Azithromycin. 3. Lasix 20 milligrams p.o. twice a day. 4. Cardizem 30 mgm p.o. four times a day. 5. Aspirin. 6. Lovenox. ALLERGIES: PENICILLIN. PHYSICAL EXAMINATION: VITAL SIGNS: Afebrile, pulse 110, respiratory rate 22, blood pressure 128/86, satting 90% on four liters. GENERAL: A pleasant -[place] gentleman who is an extremely poor historian in no distress. NECK: No jugular venous distention. LUNGS: Decreased breath sounds in all [place]. CARDIOVASCULAR: Irregularly irregular rhythm to a mildly rapid rate. ABDOMEN: Benign. EXTREMITIES: 1 to 2+ edema bilaterally. LABORATORY DATA: White count 5.8, hematocrit 43.0, platelets 242,000. Sodium 139, potassium 4.0, chloride 103, bicarb 25.8, BUN 10, creatinine 0.82, glucose 78. IMAGING STUDIES: Chest x-ray shows possible pneumonia. EKGS: EKG shows atrial fibrillation at a rate of 116 with diffuse S-T changes and left ventricular hypertrophy. IMPRESSION: 1. Acute on chronic systolic congestive heart failure with known severe cardiomyopathy and atrial fibrillation: The patient is clearly in decompensated congestive heart failure due to his noncompliance with medication and probably CHF lifestyle as well. I did discuss this with him at length, and for the moment he says he will be compliant with medications. I will start him on warfarin, which [facility] and attempt to slow his heart rate down with carvedilol. I will have him undergo a nuclear stress test to evaluate for ischemia as a cause for his cardiomyopathy, though it may simply be tachycardia mediated from uncontrolled atrial fibrillation. Further recommendations will based on these tests and his clinical progress. Thank you again for the opportunity to participate in this patient's care. MD YUDI Ashby/ZAKI /10:23 AM /11:36 AM
--- NOTE | 2017-04-05 12:08 | RADRPT ---
EXAM DATE/TIME: 04/05/2017 10:30 [facility] COMPARISON: No previous studies available for comparison. INDICATIONS : Bilateral leg pain and swelling. MEDICAL HISTORY : Hypercholesterolemia. Congestive heart failure. Chronic obstructive pulmonary disease. Dyspnea. Hyper tension. Arthritis. SURGICAL HISTORY : None. ENCOUNTER: Initial ACUITY: 2 day PAIN SCORE: 4/10 LOCATION: Bilateral legs. TECHNIQUE: Venous ultrasound of the left and right leg was performed from the inguinal ligament to the proximal calf. Real-time, color Doppler and spectral tracing, compression and augmentation techniques were us ed. FINDINGS: RIGHT LEG: There is nonocclusive thrombus within the right popliteal vein and peroneal vein. The common femoral vein and superficial femoral veins are patent. LEFT LEG: There is nonocclusive thrombus from common femoral vein down to popliteal vein and below the knee ves sels. CONCLUSION: Bilateral DVT. Anna Ratliff MD on April 05, 2017 at 12:04 Board Certified Radiologist. This report was verified electronically.
[2017-04-05] MEDS: AZITHROMYCIN INJ 500 MG in SODIUM CHLOR 0.9% 250 ML INJ 250 ML IV SCH (15:19)
[2017-04-05] MEDS: ENOXAPARIN SODIUM 40 MG/0.4 ML SYRINGE SQ SCH (15:20)
[2017-04-05] MEDS: cefTRIAXone INJ 1,000 MG in SODIUM CHLORIDE 0.9% INJ 100 ML IV SCH (15:21)
--- NOTE | 2017-04-05 16:46 | RADRPT ---
EXAM DATE/TIME: 04/05/2017 16:28 [facility] COMPARISON: No previous studies available for comparison. INDICATIONS : Left lower leg pain and swelling. MEDICAL HISTORY : Hypercholesterolemia. Congestive heart failure. Chronic obstructive pulmonary disease. Dyspnea. Hyper tension. Arthritis. SURGICAL HISTORY : None. ENCOUNTER: Initial ACUITY: 2 days PAIN SCORE: 4/10 LOCATION: Left lower leg. FINDINGS: Two view examination of the left tibia demonstrates no evidence of fracture or dislocation. Diffuse s oft tissue swelling. Bony mineralization is normal. Vascular calcifications. CONCLUSION: Soft tissue swelling without fracture or periosteal reaction. Benton Hidalgo MD on April 05, 2017 at 16:43 Board Certified Radiologist. This report was verified electronically.
[2017-04-05] MEDS ORDERED: GADODIAMIDE PF 287 MG/ML 10 ML VIAL (for RAD MRI) IVCONTRAST ONE (17:03)
--- NOTE | 2017-04-05 17:26 | HHI.PR ---
Subjective Remarks patient sitting on the chair, reported feeling extremely tired No chest pain, cardiology and podiatry consulted for advanced heart failure and poor lower extremity circulation Objective Vitals Vital Signs Date Time Temp Pulse Resp B/P (MAP) Pulse Ox O2 Delivery O2 Flow Rate FiO2 04/05/17 12:00 97.2 125 20 126/71 (89) 85 04/05/17 08:09 125 04/05/17 08:00 98.0 110 22 128/86 (100) 90 04/05/17 05:20 98.2 98 24 122/80 (94) 92 04/05/17 04:00 Nasal Cannula 4.00 04/05/17 04:00 93 04/05/17 00:00 99.0 125 26 103/68 (80) 98 04/05/17 00:00 124 04/05/17 00:00 Nasal Cannula 4.00 04/04/17 22:30 98 04/04/17 20:24 97.8 117 24 106/80 (89) 91 04/04/17 20:00 Nasal Cannula 3.00 04/04/17 20:00 106 I/O 04/04/17 04/04/17 04/04/17 04/05/17 04/05/17 04/05/17 07:00 15:00 23:00 07:00 15:00 23:00 Intake Total 180 ml 720 ml 0 ml Output Total 900 ml 125 ml 225 ml Balance -720 ml 595 ml -225 ml Intake Oral 180 ml 720 ml 0 ml Output Urine Total 900 ml 125 ml 225 ml # Voids 1 # Bowel Movements 0 0 0 Result Diagram: 04/04/1734 04/04/17833 Objective Remarks - - GENERAL: This is a well-nourished, well-developed patient, in no apparent distress. CARDIOVASCULAR: Regular rate and irregular rhythm without murmurs, gallops, or rubs. RESPIRATORY: Clear to auscultation. Breath sounds equal bilaterally. No wheezes , rales, or rhonchi. GASTROINTESTINAL: Abdomen soft, non-tender, nondistended. Normal, active bowel sounds MUSCULOSKELETAL: Left lower extremity with 7 cm ulcer which has eschar tissue in it, right lower extremity with 10 cm ulcer which show granulation healing NEURO: Alert & Oriented x4 to person, place, time, situation. Moves all ext x4 A/P Assessment and Plan 04/04: Chest x-ray showing right lobe and base airspace disease, I will place patient back on Rocephin and Zithromax, I discussed with the wound care patient had necrotic tissue on the left leg will consult podiatry 2-D echo came showing ejection fraction of 15% home will consult cardiology for advanced heart failure management, monitor BMP last value was 04/05:2 echo showed EF 15%,cardiology consulted appreciate their input, heart failure optimization, appreciate podiatry consult, workup to assess circulation in lower extremity A/P: This is a 72-year-old male past history of COPD on oxygen, CHF, and noncompliance who presented with chronic lower extremity edema and wounds found to have atrial fibrillation with RVR Atrial fibrillation with RVR -Patient is asymptomatic. -Patient given a dose of Cardizem 10 mg IV. Heart rate continues to be in the 90s to 130s. Was started on Cardizem drip. Will also start oral Cardizem he milligrams 4 times a day. -We will obtain echo. Troponin negative. Will trend cardiac enzymes and order TSH. -CHADSVASC2 score 2 (age and CHF.). Patient declined anticoagulation he is convinced it's of no benefit. Extensive discussion and education about beneficial anticoagulation for stroke prevention Community-acquired pneumonia showed on a chest x-ray, Minimal airspace disease in right midlung and right base Patient received Rocephin Zithromax in ED I will resume that Continue O2, DuoNeb CHF exacerbation -Chest x-ray shows minimal left airspace disease in the mid lung. BMP 1912. Patient also had lower extremity edema. -Start oral Lasix. Chronic lower extremity edema and wounds -Patient is noncompliant. There are no signs of infection. Labs obtain no leukocytosis. Remains afebrile. -Awaiting 2-D echo -Care Right mid and lower lobe pneumonia with respiratory failure -Combination of CHF and COPD. -Continue with oxygen. At home patients on 5 L. Hyperkalemia -Due to hemolyzes. DVT prophylaxis -Lovenox. Josué Gallegos MD Apr 05, 2017 17:26
--- NOTE | 2017-04-05 17:36 | RADRPT ---
EXAM DATE/TIME: 04/05/2017 16:42 [facility] COMPARISON: TIBIA/FIBULA LEFT (AP/LAT), April 05, 2017, 16:28. INDICATIONS : Abscess. CONTRAST: 16 cc Omniscan (gadodiamide) IV MEDICAL HISTORY : Hypertension. SURGICAL HISTORY : None. ENCOUNTER: Initial ACUITY: 1 day PAIN SCORE: 0/10 LOCATION: Left leg TECHNIQUE: Multiplanar multisequence MRI examination of the lower leg was performed with and without contrast. FINDINGS: BONE/CARTILAGE: Bone marrow signal is homogeneous. Articular cartilage signal is within normal limits. MUSCLES/TENDONS: All of the visualized muscles and tendons are intact. MISCELLANEOUS: Extensive soft tissue swelling/edematous soft tissues within both lower extremity's. No abscess withi n the left leg. No periosteal reaction. No osteomyelitis. There is abrasion/laceration along the ante rior freitas. The fluid collection seen. POST-CONTRAST: There are no abnormal areas of enhancement on the post-contrast images. CONCLUSION: Edematous soft tissues of the left leg. No abscess or osteomyelitis. Benton Hidalgo MD on April 05, 2017 at 17:30 Board Certified Radiologist. This report was verified electronically.
[2017-04-05] MEDS: FUROSEMIDE 40 MG/4 ML VIAL IV PUSH SCH (18:24)
[2017-04-05] MEDS: WARFARIN SOD 5 MG TAB PO SCH (18:25)
[2017-04-06] VITALS (8 sets, daily range): BP systolic 80–114; BP diastolic 54–69; PULSE 74–96; RESP 16–21; TEMP 97.6–99.9; O2SAT 88–94
[2017-04-06 04:53] LABS: INTERNATIONAL NORMALIZED RATIO 1.2 RATIO; PROTHROMBIN TIME - PATIENT 12.4 SEC (9.8-11.6)
[2017-04-06] MEDS: DILTIAZEM HCL 30 MG TAB PO SCH ×4 (08:33→21:00)
[2017-04-06] MEDS: CARVEDILOL 6.25 MG TAB PO SCH ×2 (08:33→21:00)
[2017-04-06] MEDS: LISINOPRIL 5 MG TAB PO SCH (08:33)
[2017-04-06] MEDS: traMADol HCL 50 MG TAB PO PRN (08:34)
[2017-04-06] MEDS: FUROSEMIDE 40 MG/4 ML VIAL IV PUSH SCH ×2 (08:34→17:34)
[2017-04-06] MEDS: ASPIRIN EC 81 MG TABEC PO SCH (08:34)
[2017-04-06] MEDS: SODIUM CHLORIDE 0.9% FLUSH 10 ML FLUSH IV FLUSH SCH ×2 (08:34→21:00)
[2017-04-06] MEDS ORDERED: REGADENOSON INJ 0.4 MG/5 ML SYR ONE (09:27)
--- NOTE | 2017-04-06 11:12 | RADRPT ---
EXAM DATE/TIME: 04/05/2017 14:29 [facility] COMPARISON: No previous studies available for comparison. INDICATIONS : Mid chest pressure for one day. Congestive heart failure. DOSE: 31.2 mCi Tc99m Myoview at stress. 30.1 mCi Tc99m Myoview at rest. 0.4 mg Lexiscan STRESS SYMPTOMS: None. EJECTION FRACTION: 43% MEDICAL HISTORY : Hypertension. Chronic obstructive pulmonary disease. SURGICAL HISTORY : None. ENCOUNTER: Initial ACUITY: 1 day PAIN SCALE: 2/10 LOCATION: Midsternal chest TECHNIQUE: The patient underwent pharmacologic stress with infusion of prescribed dose. Continuous ECG tracing was monitored during stress. Gated SPECT imaging was performed after stress and conventional SPECT i maging was performed at rest. The examination was performed on a SPECT/CT scanner, both attenuation and non-corrected datasets were reviewed. FINDINGS: DISTRIBUTION: The maximum perfused segment at stress is in the lateral wall. PERFUSION STUDY: The pattern of perfusion at stress is within normal limits. GATED STUDY: There is intact wall motion and thickening without hypokinetic or dyskinetic segments. CONCLUSION: No appreciable ischemia. RISK CATEGORY: Low (<1% Annual Mortality Rate) Anna Ratliff MD on April 06, 2017 at 11:09 Board Certified Radiologist. This report was verified electronically.
[2017-04-06] MEDS ORDERED: HEPARIN-D5W 25,000 U/250 ML 250 ML IV PRN (13:00)
[2017-04-06] MEDS: ENOXAPARIN SODIUM 40 MG/0.4 ML SYRINGE SQ SCH (13:30)
[2017-04-06] MEDS: AZITHROMYCIN INJ 500 MG in SODIUM CHLOR 0.9% 250 ML INJ 250 ML IV SCH (13:31)
--- NOTE | 2017-04-06 14:23 | PD.POD ---
Subjective Remarks Patient sleeping Past Med/Surg/Social History Social History Smoking Status: Former Smoker Objective Vital Signs Vital Signs Date Time Temp Pulse Resp B/P (MAP) Pulse Ox O2 Delivery O2 Flow Rate FiO2 04/06/17 12:05 91/59 (70) 92 04/06/17 12:00 77 04/06/17 12:00 97.8 74 16 83/56 (65) 88 87/55 (66) 04/06/17 08:15 Nasal Cannula 4.00 04/06/17 08:00 97.8 88 21 114/69 (84) 93 04/06/17 07:44 91 04/06/17 04:00 Nasal Cannula 4.00 Humidified 04/06/17 04:00 98.5 87 18 100/67 (78) 91 04/06/17 04:00 84 04/06/17 00:00 83 04/06/17 00:00 99.9 96 18 80/54 (63) 91 04/05/17 20:00 98.3 96 18 114/71 (85) 91 04/05/17 20:00 Nasal Cannula 4.00 Humidified 04/05/17 20:00 97 04/05/17 17:45 97.3 111 20 129/77 (94) 86 04/05/17 16:00 93 Nasal Cannula 4.00 Coded Allergies: Penicillins (Verified Allergy, Unknown, 04/03/17) Medications and IVs Administered Medications Medications (Trade) Dose Ordered Sig/Deacon Route PRN Reason Start Time Stop Time Status Last Admin Dose Admin Sodium Chloride (NS Flush) 2 ml BID IV FLUSH 04/03/17 21:00 04/06/17 08:34 Diltiazem HCl (Cardizem) 30 mg QID PO 04/03/17 13:00 04/06/17 08:33 Aspirin (Ecotrin Ec) 81 mg DAILY PO 04/03/17 13:00 04/06/17 08:34 Ceftriaxone Sodium 1000 mg/ Sodium Chloride 100 ml @ 200 mls/hr Q24H IV 04/04/17 15:00 04/05/17 15:21 Azithromycin 500 mg/Sodium Chloride 250 ml @ 250 mls/hr Q24H IV 04/04/17 14:00 04/06/17 13:31 Carvedilol (Coreg) 6.25 mg Q12HR PO 04/05/17 11:00 04/06/17 08:33 Lisinopril (Prinivil) 2.5 mg DAILY PO 04/06/17 09:00 04/06/17 08:33 Furosemide (Lasix Inj) 40 mg BID@,18 IV PUSH 04/05/17 18:00 04/06/17 08:34 Tramadol HCl (Ultram) 50 mg Q6H PRN PO pain 3-10 04/05/17 12:15 04/06/17 08:34 Warfarin Sodium (Coumadin) 5 mg DAILY@1600 PO 04/05/17 16:00 04/05/17 18:25 Other Results Laboratory Tests Test 04/06/17 04:15 Prothrombin Time 12.4 SEC Objective Remarks Last 72 hours Impressions Tibia/Fibula X-Ray 04/05/17 0000 Signed Impressions: Service Date/Time: Wednesday, April 05, 2017 16:28 - CONCLUSION: Soft tissue swelling without fracture or periosteal reaction. Benton Hidalgo MD Myocardial Perfusion Scan Nuc Med 04/05/17 0000 Signed Impressions: Service Date/Time: Wednesday, April 05, 2017 14:29 - CONCLUSION: No appreciable ischemia. RISK CATEGORY: Low (<1%% Annual Mortality Rate) Anna Ratliff MD Lower Extremity Ultrasound 04/05/17 0000 Signed Impressions: Service Date/Time: Wednesday, April 05, 2017 10:30 - CONCLUSION: Bilateral DVT. Anna Ratliff MD Lower Extremity MRI 04/05/17 0000 Signed Impressions: Service Date/Time: Wednesday, April 05, 2017 16:42 - CONCLUSION: Edematous soft tissues of the left leg. No abscess or osteomyelitis. Benton Hidalgo MD Physical Exam Remarks Bilateral lower extremities are examined. There is noted to be pain upon palpating the pre-tibia and posterior calf. There is an expansile mixed necrotic granular pretibial ulcer improved appears dry minimal drainage. Proximal central eschar 1 x 2 cm noted with chayo-granular tissue Right lower extremity there is noted to be a pre-tibial ulcer as well. It appears to be fully granular. Both these ulcers measure around 3 x 4 cm. No bone exposed. No probing deep. The patient is capable of dorsiflexion, plantar flexion, inversion, eversion. Distal pulses are palpable. The feet are warm. No obvious signs of below-ankle ulcerations. Sensation appears to be intact to light touch and deep pressure. Assessment & Plan Diagnosis: (1) Leg ulcer, left ICD Codes: L97.929 - Non-pressure chronic ulcer of unspecified part of left lower leg with unspecified severity Status: Acute (2) Ulcer of right leg ICD Codes: L97.919 - Non-pressure chronic ulcer of unspecified part of right lower leg with unspecified severity Status: Acute (3) DVT (deep venous thrombosis) ICD Codes: I82.409 - Acute embolism and thrombosis of unspecified deep veins of unspecified lower extremity Status: Acute A/P Wound appears stable at this point recommend Santyl ointment to be applied to the left pretibial eschar and gentamicin cream to the granular wounds and this is to be changed daily. This can continue per nursing patient will be followed with the next 3-5 days. No plans for tibial debridement at this point Problem Qualifiers (1) Leg ulcer, left: Qualified Codes: L97.922 - Non-pressure chronic ulcer of unspecified part of left lower leg with fat layer exposed (2) Ulcer of right leg: Qualified Codes: L97.912 - Non-pressure chronic ulcer of unspecified part of right lower leg with fat layer exposed (3) DVT (deep venous thrombosis): Andrea De Jesus DPM Apr 06, 2017 14:23
[2017-04-06] MEDS ORDERED: GENTAMICIN SULFATE 0.1% CREAM 15 GM TOPICAL ONE (14:30)
--- NOTE | 2017-04-06 14:54 | HHI.PR ---
Subjective Remarks Patient resting in bed, she is mumbling words, she is telling me she does not want to be on a blood thinner However today ultrasound of the lower extremity revealed bilateral DVT patient was already started on warfarin by cardiology for A. fib, I discussed with Dr. De Jesus who agreed to start on heparin drip and hold on on debridement of the lower extremity at this point Objective Vitals Vital Signs Date Time Temp Pulse Resp B/P (MAP) Pulse Ox O2 Delivery O2 Flow Rate FiO2 04/06/17 12:05 91/59 (70) 92 04/06/17 12:00 77 04/06/17 12:00 97.8 74 16 83/56 (65) 88 87/55 (66) 04/06/17 08:15 Nasal Cannula 4.00 04/06/17 08:00 97.8 88 21 114/69 (84) 93 04/06/17 07:44 91 04/06/17 04:00 Nasal Cannula 4.00 Humidified 04/06/17 04:00 98.5 87 18 100/67 (78) 91 04/06/17 04:00 84 04/06/17 00:00 83 04/06/17 00:00 99.9 96 18 80/54 (63) 91 04/05/17 20:00 98.3 96 18 114/71 (85) 91 04/05/17 20:00 Nasal Cannula 4.00 Humidified 04/05/17 20:00 97 04/05/17 17:45 97.3 111 20 129/77 (94) 86 04/05/17 16:00 93 Nasal Cannula 4.00 I/O 04/05/17 04/05/17 04/05/17 04/06/17 04/06/17 04/06/17 07:00 15:00 23:00 07:00 15:00 23:00 Intake Total 0 ml 720 ml Output Total 225 ml 625 ml 1225 ml Balance -225 ml 95 ml -1225 ml Intake Oral 0 ml 720 ml Output Urine Total 225 ml 625 ml 1225 ml # Bowel Movements 0 Result Diagram: 04/04/17 0834 04/04/17 0834 Imaging Last Impressions Tibia/Fibula X-Ray 04/05/17 0000 Signed Impressions: Service Date/Time: Wednesday, April 05, 2017 16:28 - CONCLUSION: Soft tissue swelling without fracture or periosteal reaction. Benton Hidalgo MD Myocardial Perfusion Scan Nuc Med 04/05/17 0000 Signed Impressions: Service Date/Time: Wednesday, April 05, 2017 14:29 - CONCLUSION: No appreciable ischemia. RISK CATEGORY: Low (<1%% Annual Mortality Rate) Anna Ratliff MD Lower Extremity Ultrasound 04/05/17 0000 Signed Impressions: Service Date/Time: Wednesday, April 05, 2017 10:30 - CONCLUSION: Bilateral DVT. Anna Ratliff MD Lower Extremity MRI 04/05/17 0000 Signed Impressions: Service Date/Time: Wednesday, April 05, 2017 16:42 - CONCLUSION: Edematous soft tissues of the left leg. No abscess or osteomyelitis. Benton Hidalgo MD Chest X-Ray 04/03/17 0859 Signed Impressions: Service Date/Time: March 09:20 - CONCLUSION: Minimal air space disease both in the right midlung field and right lung base could be areas of pneumonia. Amari Thomas MD Objective Remarks - - GENERAL: This is a well-nourished, well-developed patient, in no apparent distress. CARDIOVASCULAR: Regular rate and irregular rhythm without murmurs, gallops, or rubs. RESPIRATORY: Clear to auscultation. Breath sounds equal bilaterally. No wheezes , rales, or rhonchi. GASTROINTESTINAL: Abdomen soft, non-tender, nondistended. Normal, active bowel sounds MUSCULOSKELETAL: Left lower extremity with 7 cm ulcer which has eschar tissue in it, right lower extremity with 10 cm ulcer which show granulation healing NEURO: Alert & Oriented x4 to person, place, time, situation. Moves all ext x4 A/P Assessment and Plan 04/04: Chest x-ray showing right lobe and base airspace disease, I will place patient back on Rocephin and Zithromax, I discussed with the wound care patient had necrotic tissue on the left leg will consult podiatry 2-D echo came showing ejection fraction of 15% home will consult cardiology for advanced heart failure management, monitor BMP last value was 04/05:2 echo showed EF 15%,cardiology consulted appreciate their input, heart failure optimization, appreciate podiatry consult, workup to assess circulation in lower extremity 04/06: today ultrasound of the lower extremity revealed bilateral DVT patient was already started on warfarin by cardiology for A. fib, I discussed with Dr. De Jesus who agreed to start on heparin drip and hold on on debridement of the lower extremity at this point. Patient constantly refused blood thinner, I will consult palliative care and psychiatry to assess goal of treatment and competency A/P: This is a 72-year-old male past history of COPD on oxygen, CHF, and noncompliance who presented with chronic lower extremity edema and wounds found to have atrial fibrillation with RVR Atrial fibrillation with RVR Bilateral DVT in lower extremity -Patient given a dose of Cardizem 10 mg IV. Heart rate continues to be in the 90s to 130s. Was started on Cardizem drip. Will also start oral Cardizem he milligrams 4 times a day. -We will obtain echo. Troponin negative. Will trend cardiac enzymes and order TSH. -CHADSVASC2 score 2 (age and CHF.). Patient declined anticoagulation he is convinced it's of no benefit. Extensive discussion and education about beneficial anticoagulation for stroke prevention. Patient started on warfarin anyway by cardiology, started on heparin drip if patient continued to decline will need palliative care and psychiatry to decide on competency Community-acquired pneumonia showed on a chest x-ray, Minimal airspace disease in right midlung and right base Patient received Rocephin Zithromax in ED I will resume that Continue O2, DuoNeb CHF exacerbation -Chest x-ray shows minimal left airspace disease in the mid lung. BMP 1912. Patient also had lower extremity edema. -Start oral Lasix. Chronic lower extremity edema and wounds -Patient is noncompliant. There are no signs of infection. Labs obtain no leukocytosis. Remains afebrile. -Awaiting 2-D echo -Care Right mid and lower lobe pneumonia with respiratory failure -Combination of CHF and COPD. -Continue with oxygen. At home patients on 5 L. Hyperkalemia -Due to hemolyzes. DVT prophylaxis -Lovenox. Josué Gallegos MD Apr 06, 2017 14:54
[2017-04-06] MEDS: WARFARIN SOD 5 MG TAB PO SCH (15:30)
[2017-04-06] MEDS: cefTRIAXone INJ 1,000 MG in SODIUM CHLORIDE 0.9% INJ 100 ML IV SCH (15:31)
--- NOTE | 2017-04-06 15:32 | PD.CARD.PN ---
Subjective Subjective Remarks NSR on tele; pt still a very poor historian, mumbles short answers, somnolent Objective Medications Administered Medications Medications (Trade) Dose Ordered Sig/Deacon Route PRN Reason Start Time Stop Time Status Last Admin Dose Admin Sodium Chloride (NS Flush) 2 ml BID IV FLUSH 04/03/17 21:00 04/06/17 08:34 Diltiazem HCl (Cardizem) 30 mg QID PO 04/03/17 13:00 04/06/17 08:33 Aspirin (Ecotrin Ec) 81 mg DAILY PO 04/03/17 13:00 04/06/17 08:34 Ceftriaxone Sodium 1000 mg/ Sodium Chloride 100 ml @ 200 mls/hr Q24H IV 04/04/17 15:00 04/05/17 15:21 Azithromycin 500 mg/Sodium Chloride 250 ml @ 250 mls/hr Q24H IV 04/04/17 14:00 04/06/17 13:31 Carvedilol (Coreg) 6.25 mg Q12HR PO 04/05/17 11:00 04/06/17 08:33 Lisinopril (Prinivil) 2.5 mg DAILY PO 04/06/17 09:00 04/06/17 08:33 Furosemide (Lasix Inj) 40 mg BID@09,18 IV PUSH 04/05/17 18:00 04/06/17 08:34 Tramadol HCl (Ultram) 50 mg Q6H PRN PO pain 3-10 04/05/17 12:15 04/06/17 08:34 Warfarin Sodium (Coumadin) 5 mg DAILY@1600 PO 04/05/17 16:00 04/05/17 18:25 Current Medications Medications (Trade) Dose Ordered Sig/Deacon Route Start Time Stop Time Status Last Admin (NS Flush) 2 ml UNSCH PRN IV FLUSH 04/03/17 11:00 (NS Flush) 2 ml BID IV FLUSH 04/03/17 21:00 04/06/17 08:34 (Tylenol) 650 mg Q4H PRN PO 04/03/17 11:00 (Cardizem) 30 mg QID PO 04/03/17 13:00 04/06/17 08:33 (Ecotrin Ec) 81 mg DAILY PO 04/03/17 13:00 04/06/17 08:34 Ceftriaxone Sodium 1000 mg/ Sodium Chloride 100 ml @ 200 mls/hr Q24H IV 04/04/17 15:00 04/05/17 15:21 Azithromycin 500 mg/Sodium Chloride 250 ml @ 250 mls/hr Q24H IV 04/04/17 14:00 04/06/17 13:31 (Coreg) 6.25 mg Q12HR PO 04/05/17 11:00 04/06/17 08:33 (Prinivil) 2.5 mg DAILY PO 04/06/17 09:00 04/06/17 08:33 Pharmacy Profile Note 0 ml @ 0 mls/hr UNSCH OTHER 04/05/17 10:30 (Lasix Inj) 40 mg BID@09,18 IV PUSH 04/05/17 18:00 04/06/17 08:34 (Pill Splitter) 1 ea UNSCH PRN OTHER 04/05/17 11:00 (Ultram) 50 mg Q6H PRN PO 04/05/17 12:15 04/06/17 08:34 (Coumadin) 5 mg DAILY@1600 PO 04/05/17 16:00 04/05/17 18:25 Heparin Sodium/ Dextrose 250 ml @ 15 mls/hr TITRATE PRN IV 04/06/17 13:45 (Gentamicin 0.1% Cream) 1 applic DAILY TOPICAL 04/07/17 09:00 (Santyl Oint) 1 applic DAILY TOPICAL 04/07/17 09:00 Vital Signs / I&O Vital Signs Date Time Temp Pulse Resp B/P (MAP) Pulse Ox O2 Delivery O2 Flow Rate FiO2 04/06/17 12:05 91/59 (70) 92 04/06/17 12:00 77 04/06/17 12:00 97.8 74 16 83/56 (65) 88 87/55 (66) 04/06/17 08:15 Nasal Cannula 4.00 04/06/17 08:00 97.8 88 21 114/69 (84) 93 04/06/17 07:44 91 04/06/17 04:00 Nasal Cannula 4.00 Humidified 04/06/17 04:00 98.5 87 18 100/67 (78) 91 04/06/17 04:00 84 04/06/17 00:00 83 04/06/17 00:00 99.9 96 18 80/54 (63) 91 04/05/17 20:00 98.3 96 18 114/71 (85) 91 04/05/17 20:00 Nasal Cannula 4.00 Humidified 04/05/17 20:00 97 04/05/17 17:45 97.3 111 20 129/77 (94) 86 04/05/17 16:00 93 Nasal Cannula 4.00 I/O 04/05/17 04/05/17 04/05/17 04/06/17 04/06/17 04/06/17 07:00 15:00 23:00 07:00 15:00 23:00 Intake Total 0 ml 720 ml Output Total 225 ml 625 ml 1225 ml Balance -225 ml 95 ml -1225 ml Intake Oral 0 ml 720 ml Output Urine Total 225 ml 625 ml 1225 ml # Bowel Movements 0 Physical Exam GENERAL: somnolent but arouses to command CARDIOVASCULAR: Regular rate and rhythm without murmurs, gallops, or rubs. RESPIRATORY: Clear to auscultation. Breath sounds equal bilaterally. No wheezes , rales, or rhonchi. GASTROINTESTINAL: Abdomen soft, non-tender, nondistended. Normal active bowel sounds MUSCULOSKELETAL: Extremities without clubbing, cyanosis, or edema. NEURO: somnolent Laboratory Laboratory Tests Test 04/06/17 04:15 Prothrombin Time 12.4 SEC Prothromb Time International Ratio 1.2 RATIO Imaging Last Impressions Tibia/Fibula X-Ray 04/05/17 0000 Signed Impressions: Service Date/Time: Wednesday, April 05, 2017 16:28 - CONCLUSION: Soft tissue swelling without fracture or periosteal reaction. Benton Hidalgo MD Myocardial Perfusion Scan Nuc Med 04/05/17 0000 Signed Impressions: Service Date/Time: Wednesday, April 05, 2017 14:29 - CONCLUSION: No appreciable ischemia. RISK CATEGORY: Low (<1%% Annual Mortality Rate) Anna Ratliff MD Lower Extremity Ultrasound 04/05/17 0000 Signed Impressions: Service Date/Time: Wednesday, April 05, 2017 10:30 - CONCLUSION: Bilateral DVT. Anna Ratliff MD Lower Extremity MRI 04/05/17 0000 Signed Impressions: Service Date/Time: Wednesday, April 05, 2017 16:42 - CONCLUSION: Edematous soft tissues of the left leg. No abscess or osteomyelitis. Benton Hidalgo MD Chest X-Ray 04/03/17 0859 Signed Impressions: Service Date/Time: March 09:20 - CONCLUSION: Minimal air space disease both in the right midlung field and right lung base could be areas of pneumonia. Amari Thomas MD Assessment and Plan Problem List: (1) Atrial fibrillation ICD Codes: I48.91 - Unspecified atrial fibrillation Plan: currently SR; on warfarin (2) Acute exacerbation of CHF (congestive heart failure) ICD Codes: I50.9 - Heart failure, unspecified Status: Acute Plan: Improving, continue IV lasix for today, will get a limited echo to reassess EF given higher reported by nuc stress. Problem Qualifiers (1) Acute exacerbation of CHF (congestive heart failure): Qualified Codes: I50.9 - Heart failure, unspecified Henry Rich MD Apr 06, 2017 15:32
[2017-04-06 17:48] LABS: HEMATOCRIT 42.9 % (39.0-51.0); HEMOGLOBIN 14.4 GM/DL (13.0-17.0); MEAN CELL VOLUME 88.6 FL (80.0-100.0); MEAN CORPUSCULAR HEMOGLOBIN 29.7 PG (27.0-34.0); MEAN CORPUSCULAR HGB CONC 33.5 % (32.0-36.0); MEAN PLATELET VOLUME 8.5 FL (7.0-11.0); PLATELET COUNT 237 TH/MM3 (150-450); RED BLOOD COUNT 4.84 MIL/MM3 (4.50-5.90); RED CELL DISTRIBUTION WIDTH 16.5 % (11.6-17.2); WHITE BLOOD COUNT 7.6 TH/MM3 (4.0-11.0)
[2017-04-06 17:53] LABS: INTERNATIONAL NORMALIZED RATIO 1.2 RATIO; PROTHROMBIN TIME - PATIENT 12.3 SEC (9.8-11.6)
[2017-04-06 18:10] LABS: BICARBONATE 29.1 MEQ/L (21.0-32.0); CREATININE 0.91 MG/DL (0.60-1.30)
[2017-04-06] MEDS: HEPARIN-D5W 25,000 U/250 ML 250 ML IV PRN (18:29)
[2017-04-07] VITALS (8 sets, daily range): BP systolic 98–124; BP diastolic 71–88; PULSE 57–113; RESP 20–28; TEMP 97.2–98.2; O2SAT 85–100
[2017-04-07] MEDS: MAGNESIUM HYDROXIDE SUSP 30 ML CUP PO PRN ×2 (01:42→09:04)
[2017-04-07] MEDS: traMADol HCL 50 MG TAB PO PRN (03:28)
[2017-04-07 08:32] LABS: INTERNATIONAL NORMALIZED RATIO 1.4 RATIO; PROTHROMBIN TIME - PATIENT 13.9 SEC (9.8-11.6)
[2017-04-07] MEDS: FUROSEMIDE 40 MG/4 ML VIAL IV PUSH SCH ×2 (08:46→18:00)
[2017-04-07] MEDS: LISINOPRIL 5 MG TAB PO SCH (08:46)
[2017-04-07] MEDS: DILTIAZEM HCL 30 MG TAB PO SCH ×4 (08:47→20:23)
[2017-04-07] MEDS: ASPIRIN EC 81 MG TABEC PO SCH (08:47)
[2017-04-07] MEDS: DOCUSATE SODIUM 100 MG CAP PO SCH ×2 (08:47→19:54)
[2017-04-07] MEDS: CARVEDILOL 6.25 MG TAB PO SCH ×2 (08:48→19:54)
[2017-04-07] MEDS: COLLAGENASE OINT 30 GM TUBE TOPICAL SCH (08:56)
[2017-04-07] MEDS: SODIUM CHLORIDE 0.9% FLUSH 10 ML FLUSH IV FLUSH SCH ×2 (09:00→19:54)
--- NOTE | 2017-04-07 09:12 | PD.CARD.PN ---
Subjective Subjective Remarks pt still a very poor historian, mumbles short answers, but more awake today; he is on a NRB currently but denies sob Objective Medications Current Medications Medications (Trade) Dose Ordered Sig/Deacon Route Start Time Stop Time Status Last Admin (NS Flush) 2 ml UNSCH PRN IV FLUSH 04/03/17 11:00 (NS Flush) 2 ml BID IV FLUSH 04/03/17 21:00 04/06/17 08:34 (Tylenol) 650 mg Q4H PRN PO 04/03/17 11:00 (Cardizem) 30 mg QID PO 04/03/17 13:00 04/07/17 08:47 (Ecotrin Ec) 81 mg DAILY PO 04/03/17 13:00 04/07/17 08:47 Ceftriaxone Sodium 1000 mg/ Sodium Chloride 100 ml @ 200 mls/hr Q24H IV 04/04/17 15:00 04/06/17 15:31 Azithromycin 500 mg/Sodium Chloride 250 ml @ 250 mls/hr Q24H IV 04/04/17 14:00 04/06/17 13:31 (Coreg) 6.25 mg Q12HR PO 04/05/17 11:00 04/06/17 08:33 (Prinivil) 2.5 mg DAILY PO 04/06/17 09:00 04/07/17 08:46 Pharmacy Profile Note 0 ml @ 0 mls/hr UNSCH OTHER 04/05/17 10:30 (Lasix Inj) 40 mg BID@09,18 IV PUSH 04/05/17 18:00 04/07/17 08:46 (Pill Splitter) 1 ea UNSCH PRN OTHER 04/05/17 11:00 (Ultram) 50 mg Q6H PRN PO 04/05/17 12:15 04/07/17 03:28 (Coumadin) 5 mg DAILY@1600 PO 04/05/17 16:00 04/06/17 15:30 Heparin Sodium/ Dextrose 250 ml @ 15 mls/hr TITRATE PRN IV 04/06/17 13:45 04/06/17 18:29 (Gentamicin 0.1% Cream) 1 applic DAILY TOPICAL 04/07/17 09:00 (Santyl Oint) 1 applic DAILY TOPICAL 04/07/17 09:00 04/07/17 08:56 (Colace) 100 mg BID PO 04/07/17 09:00 04/07/17 08:47 (Milk Of Magnesia Liq) 30 ml Q6H PRN PO 04/07/17 01:30 04/07/17 09:04 Vital Signs / I&O Vital Signs Date Time Temp Pulse Resp B/P (MAP) Pulse Ox O2 Delivery O2 Flow Rate FiO2 04/07/17 04:00 93 04/07/17 04:00 97.8 113 21 124/88 (100) 93 04/07/17 00:17 20 04/07/17 00:00 97 04/07/17 00:00 97.6 109 22 116/78 (91) 93 04/06/17 20:00 92 04/06/17 20:00 Nasal Cannula 4.00 Humidified 04/06/17 20:00 98.9 96 21 104/60 (75) 94 04/06/17 16:00 97.6 82 18 95/68 (77) 89 04/06/17 16:00 87 04/06/17 16:00 Nasal Cannula 3.00 04/06/17 12:05 91/59 (70) 92 04/06/17 12:00 77 04/06/17 12:00 Nasal Cannula 4.00 04/06/17 12:00 97.8 74 16 83/56 (65) 88 87/55 (66) I/O 04/06/17 04/06/17 04/06/17 04/07/17 04/07/17 04/07/17 07:00 15:00 23:00 07:00 15:00 23:00 Intake Total 480 ml 405 ml Output Total 1225 ml 250 ml 1200 ml Balance -1225 ml 230 ml -795 ml Intake Oral 480 ml 240 ml IV Total 165 ml Output Urine Total 1225 ml 250 ml 1200 ml # Bowel Movements 0 0 Physical Exam GENERAL: awake/alert CARDIOVASCULAR: Regular rate and rhythm without murmurs, gallops, or rubs. RESPIRATORY: decreased breath sounds GASTROINTESTINAL: Abdomen soft, non-tender, nondistended. Normal active bowel sounds MUSCULOSKELETAL: Extremities without clubbing, cyanosis, or edema. NEURO: intact Laboratory Laboratory Tests Test 04/06/17 17:23 04/07/17 00:37 04/07/17 07:40 04/07/17 07:46 White Blood Count 7.6 TH/MM3 Red Blood Count 4.84 MIL/MM3 Hemoglobin 14.4 GM/DL Hematocrit 42.9 % Mean Corpuscular Volume 88.6 FL Mean Corpuscular Hemoglobin 29.7 PG Mean Corpuscular Hemoglobin Concent 33.5 % Red Cell Distribution Width 16.5 % Platelet Count 237 TH/MM3 Mean Platelet Volume 8.5 FL Prothrombin Time 12.3 SEC 13.9 SEC Prothromb Time International Ratio 1.2 RATIO 1.4 RATIO Activated Partial Thromboplast Time 27.4 SEC 65.0 SEC 84.0 SEC Blood Urea Nitrogen 12 MG/DL Creatinine 0.91 MG/DL Random Glucose 137 MG/DL Calcium Level 8.0 MG/DL Sodium Level 135 MEQ/L Potassium Level 3.7 MEQ/L Chloride Level 99 MEQ/L Carbon Dioxide Level 29.1 MEQ/L Anion Gap 7 MEQ/L Estimat Glomerular Filtration Rate 99 ML/MIN B-Type Natriuretic Peptide 2541 PG/ML Assessment and Plan Problem List: (1) Atrial fibrillation ICD Codes: I48.91 - Unspecified atrial fibrillation Plan: currently SR; on warfarin (2) Acute exacerbation of CHF (congestive heart failure) ICD Codes: I50.9 - Heart failure, unspecified Status: Acute Plan: O2 requirements increased despite diuresis; will get a limited echo to reassess EF given higher reported by nuc stress; also repeat cxr. Problem Qualifiers (1) Acute exacerbation of CHF (congestive heart failure): Qualified Codes: I50.9 - Heart failure, unspecified Henry Rich MD Apr 07, 2017 09:12
[2017-04-07 10:09] LABS: CALCIUM 8.2 MG/DL (8.5-10.1); CREATININE 0.69 MG/DL (0.60-1.30)
--- NOTE | 2017-04-07 10:25 | RADRPT ---
EXAM DATE/TIME: 04/07/2017 09:44 [facility] COMPARISON: CHEST SINGLE AP, April 03, 2017, 9:20. INDICATIONS : Short of breath, weakness MEDICAL HISTORY : Congestive heart failure. lower extremity edema SURGICAL HISTORY : None. ENCOUNTER: Subsequent ACUITY: 3 days PAIN SCORE: 0/10 LOCATION: Bilateral chest FINDINGS: A single portable frontal view of the chest shows the heart to be mildly enlarged. Worsening areas of consolidation are seen within both bases. No discrete effusions. A right medial apical consolidation is new from the prior study. A degenerative and scoliotic spine. CONCLUSION: Worsening bilateral pulmonary infiltrates. Cardiomegaly. Luis Marmolejo Jr., MD on April 07, 2017 at 10:21 Board Certified Radiologist. This report was verified electronically.
[2017-04-07] MEDS: HEPARIN-D5W 25,000 U/250 ML 250 ML IV PRN (11:30)
--- NOTE | 2017-04-07 13:15 | PD.PSY.CON ---
Provisional Diagnosis Admission Date Apr 03, 2017 at 11:24 [place] I. Psychological factors affecting another medical condition, in this case COPD, CHF, DVT, lower legs cellulitis [place] II. Deferred [place] III. DVT, COPD, CHF, after fibrillation History of Present Illness Service Psychiatry Consult Requested By Medical team Reason for Consult Decision capacity assessment Primary Care Physician No Primary Care Physician HPI The patient is a 72-year-old man, domiciled alone in [facility], , service connected, disabled, single, with psychiatric history of PTSD, a remote psychiatric hospitalizations, he has not been medication for several years, he denies the use of illegal substances and alcohol, with a medical history of of COPD on oxygen, after fibrillation, CHF, and history of noncompliance with medications, who presented with lower extremity edema. The patient was admitted due to COPD and CHF exacerbation, DVT. He was consulted to psychiatry for assessment of decision-making capacity to refuse medications. On psychiatric evaluation today the patient at the beginning oppositional, irritable, stated that he is not here to see a psychiatrist. Patient says that he is a and he has all his service in the [place] in [facility]. He says that he was diagnosed with PTSD several years ago, he was admitted once, he has not been in treatment for many years, he claims that he has been stable since then. The patient reports okay mood, he says that he has been a little bit upset due to lack of communication with primary team. He denies depressive symptoms, he denies anhedonia, he denies acute anxiety, he denies manic symptoms , he denies psychosis, he denies visual and auditory hallucinations, he denies suicidal and homicidal ideation. Patient is completely oriented 3, at times he becomes difficult to understand, and verbally incoherent, but he is able to answer most of my questions. The patient says that he came to the hospital because his legs were very swollen and he was having problems breathing. I discussed with the patient his reluctance to take medication, and he says that he has not refused any medications so far. He says that he came to the hospital to get better and in order to get better he understanding and is to follow medical directions and take medications. I spoke with the nurse in charge. The patient has been compliant with her medications so far. He took the medications of the morning in front of me. The patient denies the use of illegal drugs and alcohol. Review of Systems Constitutional: DENIES: Diaphoretic episodes, Fatigue, Fever, Weight gain, Weight loss, Chills, Dizziness, Change in appetite, Night Sweats Endocrine: DENIES: Heat/cold intolerance, Polydipsia, Polyuria, Polyphagia Eyes: DENIES: Blurred vision, Diplopia, Eye inflammation, Eye pain, Vision loss , Photosensitivity, Double Vision Ears, nose, mouth, throat: DENIES: Tinnitus, Hearing loss, Vertigo, Nasal discharge, Oral lesions, Throat pain, Hoarseness, Ear Pain, Running Nose, Epistaxis, Sinus Pain, Toothache, Odynophagia Respiratory: DENIES: Apneas, Cough, Snoring, Wheezing, Hemoptysis, Sputum production, Shortness of breath Cardiovascular: DENIES: Chest pain, Palpitations, Syncope, Dyspnea on Exertion , PND, Lower Extremity Edema, Orthopnea, Claudication Gastrointestinal: DENIES: Abdominal pain, Black stools, Bloody stools, Constipation, Diarrhea, Nausea, Vomiting, Difficulty Swallowing, Anorexia Genitourinary: DENIES: Sexual dysfunction, Urinary frequency, Urinary incontinence, Urgency, Hematuria, Dysuria, Nocturia, Penile Discharge, Testicular Pain, Testicular Swelling Musculoskeletal: DENIES: Joint pain, Muscle aches, Stiffness, Joint Swelling, Back pain, Neck pain Integumentary: DENIES: Abnormal pigmentation, Nail changes, Pruritus, Rash Hematologic/lymphatic: DENIES: Bruising, Lymphadenopathy Psychiatric: DENIES: Anxiety, Confusion, Mood changes, Depression, Hallucinations, Agitation, Suicidal Ideation, Homicidal Ideation, Delusions Past Family Social History Coded Allergies: Penicillins (Verified Allergy, Unknown, 04/03/17) No Active Prescriptions or Reported Meds Current Medications Medications (Trade) Dose Ordered Sig/Deacon Route Start Time Stop Time Status Last Admin (NS Flush) 2 ml UNSCH PRN IV FLUSH 04/03/17 11:00 (NS Flush) 2 ml BID IV FLUSH 04/03/17 21:00 04/06/17 08:34 (Tylenol) 650 mg Q4H PRN PO 04/03/17 11:00 (Cardizem) 30 mg QID PO 04/03/17 13:00 04/07/17 08:47 (Ecotrin Ec) 81 mg DAILY PO 04/03/17 13:00 04/07/17 08:47 Ceftriaxone Sodium 1000 mg/ Sodium Chloride 100 ml @ 200 mls/hr Q24H IV 04/04/17 15:00 04/06/17 15:31 Azithromycin 500 mg/Sodium Chloride 250 ml @ 250 mls/hr Q24H IV 04/04/17 14:00 04/06/17 13:31 (Coreg) 6.25 mg Q12HR PO 04/05/17 11:00 04/06/17 08:33 (Prinivil) 2.5 mg DAILY PO 04/06/17 09:00 04/07/17 08:46 Pharmacy Profile Note 0 ml @ 0 mls/hr UNSCH OTHER 04/05/17 10:30 (Lasix Inj) 40 mg BID@18 IV PUSH 04/05/17 18:00 04/07/17 08:46 (Pill Splitter) 1 ea UNSCH PRN OTHER 04/05/17 11:00 (Ultram) 50 mg Q6H PRN PO 04/05/17 12:15 04/07/17 03:28 (Coumadin) 5 mg DAILY@1600 PO 04/05/17 16:00 04/06/17 15:30 Heparin Sodium/ Dextrose 250 ml @ 15 mls/hr TITRATE PRN IV 04/06/17 13:45 04/07/17 11:30 (Gentamicin 0.1% Cream) 1 applic DAILY TOPICAL 04/07/17 09:00 (Santyl Oint) 1 applic DAILY TOPICAL 04/07/17 09:00 04/07/17 08:56 (Colace) 100 mg BID PO 04/07/17 09:00 04/07/17 08:47 (Milk Of Magnesia Liq) 30 ml Q6H PRN PO 04/07/17 01:30 04/07/17 09:04 Family Psych History He denies family psychiatric history Social History Patient was born and raised in [place], he lives alone in [facility], he is a , single, disabled, highest level of education is high school Patient's Strengths (min. 2) access to health care system Physical Exam No tremors, no EPS, no stiffness, no catatonia Vital Signs Vital Signs Date Time Temp Pulse Resp B/P (MAP) Pulse Ox O2 Delivery O2 Flow Rate FiO2 04/07/17 08:00 97.7 93 20 119/78 (92) 85 04/06/17 20:00 Nasal Cannula 4.00 Humidified I/O 04/07/17 04/07/17 04/08/17 08:00 16:00 00:00 Intake Total 405 ml Output Total 1200 ml Balance -795 ml Lab Results Test 04/06/17 17:23 04/07/17 00:37 04/07/17 07:40 04/07/17 07:46 White Blood Count 7.6 TH/MM3 Red Blood Count 4.84 MIL/MM3 Hemoglobin 14.4 GM/DL Hematocrit 42.9 % Mean Corpuscular Volume 88.6 FL Mean Corpuscular Hemoglobin 29.7 PG Mean Corpuscular Hemoglobin Concent 33.5 % Red Cell Distribution Width 16.5 % Platelet Count 237 TH/MM3 Mean Platelet Volume 8.5 FL Prothrombin Time 12.3 SEC 13.9 SEC Prothromb Time International Ratio 1.2 RATIO 1.4 RATIO Activated Partial Thromboplast Time 27.4 SEC 65.0 SEC 84.0 SEC Blood Urea Nitrogen 12 MG/DL 12 MG/DL Creatinine 0.91 MG/DL 0.69 MG/DL Random Glucose 137 MG/DL 95 MG/DL Calcium Level 8.0 MG/DL 8.2 MG/DL Sodium Level 135 MEQ/L 134 MEQ/L Potassium Level 3.7 MEQ/L 3.8 MEQ/L Chloride Level 99 MEQ/L 99 MEQ/L Carbon Dioxide Level 29.1 MEQ/L 27.0 MEQ/L Anion Gap 7 MEQ/L 8 MEQ/L Estimat Glomerular Filtration Rate 99 ML/MIN 136 ML/MIN B-Type Natriuretic Peptide 2541 PG/ML 2498 PG/ML Date/Time Source Procedure Growth Status 04/03/17 10:15 Urine Clean Catch Urine Culture - Final Escherichia Coli Klebsiella Pneumoniae Complete 04/05/17 15:44 Wound Leg Gram Stain - Final Complete 04/05/17 15:44 Wound Leg Wound Culture - Final Complete Mental Status Examination Appearance: Appropriate Consciousness: Alert Orientation: x4 Motor Activity: Normal gait Speech: Unremarkable Language: Adequate Fund of Knowledge: Adequate Attention and Concentration: Adequate Memory: Unremarkable Mood: Angry, Irritable Affect: Irritable Thought Process & Associations: Intact Thought Content: Appropriate Hallucination Type: None Delusion Type: None Suicidal Ideation: No Suicidal Plan: No Suicidal Intention: No Homicidal Ideation: No Homicidal Plan: No Homicidal Intention: No Insight: Adequate Judgment: Adequate Assessment & Plan Problem List: (1) Psychological factors affecting medical condition ICD Codes: F54 - Psychological and behavioral factors associated with disorders or diseases classified elsewhere Assessment & Plan: On psychiatric evaluation today the patient at the beginning irritable, resistant, oppositional, but redirectable. Patient denies any symptomatology of depression, anxiety, tigre or psychosis. He denies suicidal and homicidal ideation, he denies visual and auditory hallucinations. Patient is fully oriented 3, and he is able to verbalize her understanding of the reason of his hospitalization and his medical illness. His choice is to continue in the hospital and to take medications. He denies that he has ever refused taking medications. I did not see any indication for psychiatric admission at this moment. Based on my evaluation the patient has full decision- making capacity to participate in clinical decisions at this moment. Decision- making capacity can very with mental state changes, for example with delirium/ psychosis. (2) DVT (deep venous thrombosis) ICD Codes: I82.409 - Acute embolism and thrombosis of unspecified deep veins of unspecified lower extremity Status: Acute (3) Atrial fibrillation ICD Codes: I48.91 - Unspecified atrial fibrillation Assessment & Plan Estimated LOS: days Problem Qualifiers (1) DVT (deep venous thrombosis): Joel Bobby MD Apr 07, 2017 13:15
[2017-04-07] MEDS: GENTAMICIN SULFATE 0.1% CREAM 15 GM TOPICAL SCH (13:37)
[2017-04-07] MEDS: AZITHROMYCIN INJ 500 MG in SODIUM CHLOR 0.9% 250 ML INJ 250 ML IV SCH (14:00)
--- NOTE | 2017-04-07 15:36 | HHI.PR ---
Subjective Remarks Patient looks tired his on nonrebreathing mask still hypoxic Mumbling words are understandable, I tried to discuss advanced directive and goal of treatment seems to be leaning toward aggressive treatment Objective Vitals Vital Signs Date Time Temp Pulse Resp B/P (MAP) Pulse Ox O2 Delivery O2 Flow Rate FiO2 04/07/17 15:20 97.7 90 28 98/71 (80) 100 04/07/17 13:42 Non-Rebreather 04/07/17 08:50 Nasal Cannula 4.00 04/07/17 08:00 97.7 93 20 119/78 (92) 85 04/07/17 04:00 93 04/07/17 04:00 97.8 113 21 124/88 (100) 93 04/07/17 00:17 20 04/07/17 00:00 97 04/07/17 00:00 97.6 109 22 116/78 (91) 93 04/06/17 20:00 92 04/06/17 20:00 Nasal Cannula 4.00 Humidified 04/06/17 20:00 98.9 96 21 104/60 (75) 94 04/06/17 16:00 97.6 82 18 95/68 (77) 89 04/06/17 16:00 87 04/06/17 16:00 Nasal Cannula 3.00 I/O 04/06/17 04/06/17 04/06/17 04/07/17 04/07/17 04/07/17 06:59 14:59 22:59 06:59 14:59 22:59 Intake Total 480 ml 405 ml Output Total 1225 ml 250 ml 1200 ml Balance -1225 ml 230 ml -795 ml Intake Oral 480 ml 240 ml IV Total 165 ml Output Urine Total 1225 ml 250 ml 1200 ml # Bowel Movements 0 0 Result Diagram: 04/06/17 1723 04/07/17 0746 Objective Remarks - - GENERAL: This is a well-nourished, well-developed patient, in no apparent distress. CARDIOVASCULAR: Regular rate and irregular rhythm without murmurs, gallops, or rubs. RESPIRATORY: Clear to auscultation. Breath sounds equal bilaterally. No wheezes , rales, or rhonchi. GASTROINTESTINAL: Abdomen soft, non-tender, nondistended. Normal, active bowel sounds MUSCULOSKELETAL: Left lower extremity with 7 cm ulcer which has eschar tissue in it, right lower extremity with 10 cm ulcer which show granulation healing NEURO: Alert & Oriented x4 to person, place, time, situation. Moves all ext x4 A/P Assessment and Plan 04/04: Chest x-ray showing right lobe and base airspace disease, I will place patient back on Rocephin and Zithromax, I discussed with the wound care patient had necrotic tissue on the left leg will consult podiatry 2-D echo came showing ejection fraction of 15% home will consult cardiology for advanced heart failure management, monitor BMP last value was 04/05:2 echo showed EF 15%,cardiology consulted appreciate their input, heart failure optimization, appreciate podiatry consult, workup to assess circulation in lower extremity 04/06: today ultrasound of the lower extremity revealed bilateral DVT patient was already started on warfarin by cardiology for A. fib, I discussed with Dr. De Jesus who agreed to start on heparin drip and hold on on debridement of the lower extremity at this point. Patient constantly refused blood thinner, I will consult palliative care and psychiatry to assess goal of treatment and competency 04/07: Patient still hypoxic on nonrebreather mask, I ordered a stat CT chest to confirm PE as a component of underlying cause of the hypoxia and to assess his pneumonia, I will transfer patient to the ICU, palliative care consulted patient so far full code and seems to want aggressive treatment however he continue to refuse and not understand the role of the blood thinner, psychiatry consulted, continue monitor INR, patient on heparin drip A/P: This is a 72-year-old male past history of COPD on oxygen, CHF, and noncompliance who presented with chronic lower extremity edema and wounds found to have atrial fibrillation with RVR Atrial fibrillation with RVR Bilateral DVT in lower extremity -Patient given a dose of Cardizem 10 mg IV. Heart rate continues to be in the 90s to 130s. Was started on Cardizem drip. Will also start oral Cardizem he milligrams 4 times a day. -We will obtain echo. Troponin negative. Will trend cardiac enzymes and order TSH. -CHADSVASC2 score 2 (age and CHF.). Patient declined anticoagulation he is convinced it's of no benefit. Extensive discussion and education about beneficial anticoagulation for stroke prevention. Patient started on warfarin anyway by cardiology, started on heparin drip if patient continued to decline will need palliative care and psychiatry to decide on competency Community-acquired pneumonia showed on a chest x-ray, Minimal airspace disease in right midlung and right base Patient received Rocephin Zithromax in ED I will resume that Continue O2, DuoNeb CHF exacerbation -Chest x-ray shows minimal left airspace disease in the mid lung. BMP 1912. Patient also had lower extremity edema. -Start oral Lasix. UTI with Escherichia coli/Klebsiella Sensitive to ceftriaxone Chronic lower extremity edema and wounds -Patient is noncompliant. There are no signs of infection. Labs obtain no leukocytosis. Remains afebrile. -Awaiting 2-D echo -Care Right mid and lower lobe pneumonia with respiratory failure -Combination of CHF and COPD. -Continue with oxygen. At home patients on 5 L. Hyperkalemia -Due to hemolyzes. DVT prophylaxis -Lovenox. Josué Gallegos MD Apr 07, 2017 15:35
[2017-04-07] MEDS: WARFARIN SOD 5 MG TAB PO SCH (16:00)
--- NOTE | 2017-04-07 16:11 | ECHRPT ---
Indication: EF ASSESSMENT CONCLUSIONS The left ventricular systolic function is severely reduced with an estimated ejection fraction in th e range of 20-25%. Wall thickness is normal. There is global left ventricular dysfunction. BP: 124 / 88 HR: 93 Rhythm: Sinus MEASUREMENTS (Male / Female) Normal Values Technical Quality:Good 2D ECHO LV Diastolic Diameter PLAX 5.0 cm 4.2 - 5.9 / 3.9 - 5.3 cm LV Systolic Diameter PLAX 4.6 cm IVS Diastolic Thickness 1.0 cm 0.6 - 1.0 / 0.6 - 0.9 cm LVPW Diastolic Thickness 1.0 cm 0.6 - 1.0 / 0.6 - 0.9 cm LV Relative Wall Thickness 0.4 LV Ejection Fraction MOD 4C 25.0 % LV Ejection Fraction 4C AL 28.6 % M-MODE LV Diastolic Diameter MM 4.8 cm 4.2 - 5.9 / 3.9 - 5.3 cm LV Systolic Diameter MM 4.4 cm LV Ejection Fraction MM Teich 17.2 % IVS Diastolic Thickness MM 1.0 cm 0.6 - 1.0 / 0.6 - 0.9 cm LVPW Diastolic Thickness MM 1.0 cm 0.6 - 1.0 / 0.6 - 0.9 cm LV Relative Wall Thickness MM 0.4 0.24 - 0.42 / 0.22 - 0.42 FINDINGS LEFT VENTRICLE The left ventricular systolic function is severely reduced with an estimated ejection fraction in th e range of 20-25%. Normal left ventricular size. Wall thickness is normal. There is global left ventricular dysfunction. Duncan Frye MD (Electronically Signed) Final Date:07 April 2017 16:10
[2017-04-07] MEDS: cefTRIAXone INJ 1,000 MG in SODIUM CHLORIDE 0.9% INJ 100 ML IV SCH (16:24)
--- NOTE | 2017-04-07 16:47 | PD.CONS ---
Consult Service Palliative Care Consult Requested By Dr. Gallegos. Primary Care Physician No Primary Care Physician Reason for Consultation a. To assist with evaluation and management of symptoms including: Shortness of breath, debility. b. To assist medical decision maker(s) with: better understanding of current medical conditions; weighing benefits/burdens of medical treatment options; making medical treatment decisions. . HPI History of Present Illness Mr. Rocha is a 72-year-old male with a medical history significant for COPD, CHF, hypertension, hyperlipidemia, poor medication compliance. Patient presented to ED on 04/03/17 via EMS for evaluation of bilateral lower extremity edema and wounds. Per ED records, [facility] ED workup to include EKG revealing atrial fibrillation with RVR with nonspecific ST changes. UA positive for nitrites and leukocytes. Potassium 5.7, BUN/creatinine 12/1.15. BNP 1912. Chest x-ray revealing minimal air space disease both in the right midlung field and right lung base, likely pneumonia. Patient was admitted for further management. Echocardiogram 04/04/17 revealing EF fraction of 15%, mild left ventricular hypertrophy, mild mitral valve regurgitation, [id number] aortic regurgitation. Cardiology, Dr. Ren consulted 04/05/17 for evaluation. Patient reported history of chronic atrial fibrillation, not medication compliant. Patient was found with acute on chronic systolic congestive heart failure and known severe cardiomyopathy and atrial fibrillation. Myocardial perfusion scan 04/05/17 revealing no appreciable ischemia. Podiatry, Dr. De Jesus consulted on 04/05/17 for evaluation of her lower extremity wounds. Tibia/fibula x-ray 04/05/17 revealing soft tissue swelling without fracture or periosteal reaction. Lower extremity MRI negative for abscess or osteomyelitis. Wound care following. As per podiatry, no plan for or debridement at this time. Bilateral lower extremity ultrasound revealing DVTs, patient was placed on warfarin per cardiology and heparin drip. Clinical course complicated by respiratory failure, increased oxygenation needs. Patient was placed on nonrebreather mask at 15 L, transferred to MICU for further management and monitoring. Palliative care has been consulted for further clarifications of goals of care given patient's history of poor medication compliance and refusal of treatment. Patient has been seen by psychiatry, Dr. Bobby on 04/07/17. Patient was deemed capacitated for medical decision-making. Patient seen in medical ICU. Patient alert and oriented x self, place and situation. Irritable, not very receptive to goals of care conversation. Patient currently on nonrebreather at 15 L, endorsing being hungry, removing nonrebreather mask to eat. Not receptive to directions. Patient tells me that he has been battling CHF for the past 10 years. Attempted to address CODE STATUS. Explained in great detail CPR, intubation and mechanical ventilation in the setting of CHF exacerbation. Patient tells me that "if I'm needed, I needed". Secured contact information for next of kin. Patient no longer receptive to palliative care visit. Telephone conversation with patient cousin Kathie Saavedra, medical update provided. Obtained patient's sister name and telephone number as well as patient's brother's name. Telephone call to patient's sister Clementine Barreto, no answer -unable to leave voicemail. Case discussed with bedside RN Omi. . Function/Cognitive Trajectory Patient residing independently prior to this hospitalization. Apparently independent with ADLs. . Review of Systems ROS Limitations: Uncooperative, Poor Historian Constitutional: COMPLAINS OF: Pain, DENIES: Fever, Change in appetite Eyes: DENIES: Eye inflammation Ears, nose, mouth, throat: DENIES: Oral lesions, Running Nose, Epistaxis Respiratory: COMPLAINS OF: Shortness of breath, DENIES: Wheezing Cardiovascular: COMPLAINS OF: Dyspnea on Exertion, Lower Extremity Edema Gastrointestinal: DENIES: Abdominal pain, Nausea, Vomiting, Difficulty Swallowing Integumentary: COMPLAINS OF: Non-healing sores Neurologic: DENIES: Headache, Seizures, Tremor Psychiatric: COMPLAINS OF: Anxiety, Confusion, DENIES: Hallucinations Other ROS: Limited ROS secondary to patient's poor participation. ROS also obtained from medical records and clinical observation. . Past Family Social History Coded Allergies: Penicillins (Verified Allergy, Unknown, 04/03/17) Past Medical History Congestive heart failure Hypertension Hyperlipidemia Prediabetes COPD . Past Surgical History None. . Reported Medications No Active Prescriptions or Reported Medications . Current Medications Medications (Trade) Dose Ordered Sig/Deacon Route Start Time Stop Time Status Last Admin (NS Flush) 2 ml UNSCH PRN IV FLUSH 04/03/17 11:00 (NS Flush) 2 ml BID IV FLUSH 04/03/17 21:00 04/06/17 08:34 (Tylenol) 650 mg Q4H PRN PO 04/03/17 11:00 (Cardizem) 30 mg QID PO 04/03/17 13:00 04/07/17 08:47 (Ecotrin Ec) 81 mg DAILY PO 04/03/17 13:00 04/07/17 08:47 Ceftriaxone Sodium 1000 mg/ Sodium Chloride 100 ml @ 200 mls/hr Q24H IV 04/04/17 15:00 04/06/17 15:31 Azithromycin 500 mg/Sodium Chloride 250 ml @ 250 mls/hr Q24H IV 04/04/17 14:00 04/06/17 13:31 (Coreg) 6.25 mg Q12HR PO 04/05/17 11:00 04/06/17 08:33 (Prinivil) 2.5 mg DAILY PO 04/06/17 09:00 04/07/17 08:46 Pharmacy Profile Note 0 ml @ 0 mls/hr UNSCH OTHER 04/05/17 10:30 (Lasix Inj) 40 mg BID@,18 IV PUSH 04/05/17 18:00 04/07/17 08:46 (Pill Splitter) 1 ea UNSCH PRN OTHER 04/05/17 11:00 (Ultram) 50 mg Q6H PRN PO 04/05/17 12:15 04/07/17 03:28 (Coumadin) 5 mg DAILY@1600 PO 04/05/17 16:00 04/06/17 15:30 Heparin Sodium/ Dextrose 250 ml @ 15 mls/hr TITRATE PRN IV 04/06/17 13:45 04/07/17 11:30 (Gentamicin 0.1% Cream) 1 applic DAILY TOPICAL 04/07/17 09:00 (Santyl Oint) 1 applic DAILY TOPICAL 04/07/17 09:00 04/07/17 08:56 (Colace) 100 mg BID PO 04/07/17 09:00 04/07/17 08:47 (Milk Of Magnesia Liq) 30 ml Q6H PRN PO 04/07/17 01:30 04/07/17 09:04 Family History Mother with history of diabetes and bone cancer. . Substance Use Tobacco: Former smoker. 45-wmsr-usly history, quitted 2011. Alcohol: Denies. Prescription med abuse: Denies. Illicits: Denies. . Psychosocial History Patient is single. No children. [employer] , disabled secondary to PTSD. Patient was born and raised in [place]. Highest level of education is high school. . Spiritual/Cultural Factors No alevism affiliation. . Living Will: Never completed Health Care Surrogate: Never completed Durable Power of Development Rep: Never completed Health Care Surrogate(s): No advance directives completed. Patient is single, no children. Parents are . Patient has 2 siblings. As per [place] statute, healthcare proxy decision maker falls to the majority of siblings who are reasonably available for consultation. . Today's verbally stated goals: Full code. Aggressive management. . Ethical and Legal Issues No ethical issues identified. . Physical Exam Vital Signs Date Time Temp Pulse Resp B/P (MAP) Pulse Ox O2 Delivery O2 Flow Rate FiO2 04/07/17 15:20 97.7 90 28 98/71 (80) 100 04/07/17 13:42 Non-Rebreather 04/07/17 08:50 Nasal Cannula 4.00 04/07/17 08:00 97.7 93 20 119/78 (92) 85 04/07/17 04:00 93 04/07/17 04:00 97.8 113 21 124/88 (100) 93 04/07/17 00:17 20 04/07/17 00:00 97 04/07/17 00:00 97.6 109 22 116/78 (91) 93 04/06/17 20:00 92 04/06/17 20:00 Nasal Cannula 4.00 Humidified 04/06/17 20:00 98.9 96 21 104/60 (75) 94 04/06/17 16:00 97.6 82 18 95/68 (77) 89 04/06/17 16:00 87 04/06/17 16:00 Nasal Cannula 3.00 Exam CONSTITUTIONAL/GENERAL: This is an adequately nourished patient, in no apparent distress. Irritable. TUBES/LINES/DRAINS: PIV's, nonrebreather mask. SKIN: No jaundice, rashes, Skin temperature appropriate. Not diaphoretic. Wounds reported to bilateral lower extremities, wrapped in Kerlix. Dressing dry , intact. HEAD: Atraumatic. Normocephalic. EYES: Pupils equal and round and reactive. Extraocular motions intact. No scleral icterus. No injection or drainage. ENT: Hearing grossly normal. Nose without bleeding or purulent drainage. Moist oral mucosa. Poor dentition. NECK: Trachea midline. Supple, nontender. CARDIOVASCULAR: Irregular rate and rhythm without murmurs. Bilateral lower extremity edema. RESPIRATORY/CHEST: Symmetric, intermittent increased work of breathing while on nonrebreather mask. Scattered rhonchi bilaterally. GASTROINTESTINAL: Abdomen soft, large, round. No guarding. Bowel sounds present. Unable to appreciate hepatomegaly secondary to body habitus. GENITOURINARY: Without palpable bladder distension. MUSCULOSKELETAL: Extremities without clubbing, cyanosis. No mottling or clubbing. NEUROLOGICAL: Awake and alert. Verbal. Motor and sensory grossly within normal limits. Follows commands. Moves all extremities. PSYCHIATRIC: Irritable. . Diagnostic Tests Laboratory Laboratory Tests Test 04/06/17 04:15 04/06/17 17:23 04/07/17 00:37 04/07/17 07:40 Prothrombin Time 12.4 SEC (9.8-11.6) 12.3 SEC (9.8-11.6) 13.9 SEC (9.8-11.6) Prothromb Time International Ratio 1.2 RATIO 1.2 RATIO 1.4 RATIO White Blood Count 7.6 TH/MM3 (4.0-11.0) Red Blood Count 4.84 MIL/MM3 (4.50-5.90) Hemoglobin 14.4 GM/DL (13.0-17.0) Hematocrit 42.9 % (39.0-51.0) Mean Corpuscular Volume 88.6 FL (80.0-100.0) Mean Corpuscular Hemoglobin 29.7 PG (27.0-34.0) Mean Corpuscular Hemoglobin Concent 33.5 % (32.0-36.0) Red Cell Distribution Width 16.5 % (11.6-17.2) Platelet Count 237 TH/MM3 (150-450) Mean Platelet Volume 8.5 FL (7.0-11.0) Activated Partial Thromboplast Time 27.4 SEC (24.3-30.1) 65.0 SEC (24.3-30.1) 84.0 SEC (24.3-30.1) Blood Urea Nitrogen 12 MG/DL (7-18) Creatinine 0.91 MG/DL (0.60-1.30) Random Glucose 137 MG/DL (74-106) Calcium Level 8.0 MG/DL (8.5-10.1) Sodium Level 135 MEQ/L (136-145) Potassium Level 3.7 MEQ/L (3.5-5.1) Chloride Level 99 MEQ/L (98-107) Carbon Dioxide Level 29.1 MEQ/L (21.0-32.0) Anion Gap 7 MEQ/L (5-15) Estimat Glomerular Filtration Rate 99 ML/MIN (>89) B-Type Natriuretic Peptide 2541 PG/ML (0-100) Test 04/07/17 07:46 Blood Urea Nitrogen 12 MG/DL (7-18) Creatinine 0.69 MG/DL (0.60-1.30) Random Glucose 95 MG/DL (74-106) Calcium Level 8.2 MG/DL (8.5-10.1) Sodium Level 134 MEQ/L (136-145) Potassium Level 3.8 MEQ/L (3.5-5.1) Chloride Level 99 MEQ/L (98-107) Carbon Dioxide Level 27.0 MEQ/L (21.0-32.0) Anion Gap 8 MEQ/L (5-15) Estimat Glomerular Filtration Rate 136 ML/MIN (>89) B-Type Natriuretic Peptide 2498 PG/ML (0-100) Result Diagram: 04/06/17 1723 04/07/17 0746 Microbiology Microbiology Date/Time Source Procedure Growth Status 04/05/17 15:44 Wound Leg Gram Stain - Final Complete 04/05/17 15:44 Wound Leg Wound Culture - Final Complete Imaging Last Impressions Chest X-Ray 04/07/17 0000 Signed Impressions: Service Date/Time: Friday, April 07, 2017 09:44 - CONCLUSION: Worsening bilateral pulmonary infiltrates. Cardiomegaly. Luis Marmolejo Jr., MD Tibia/Fibula X-Ray 04/05/17 0000 Signed Impressions: Service Date/Time: Wednesday, April 05, 2017 16:28 - CONCLUSION: Soft tissue swelling without fracture or periosteal reaction. Benton Hidalgo MD Myocardial Perfusion Scan Nuc Med 04/05/17 0000 Signed Impressions: Service Date/Time: Wednesday, April 05, 2017 14:29 - CONCLUSION: No appreciable ischemia. RISK CATEGORY: Low (<1%% Annual Mortality Rate) K. Luke Ratliff MD Lower Extremity Ultrasound 04/05/17 0000 Signed Impressions: Service Date/Time: Wednesday, April 05, 2017 10:30 - CONCLUSION: Bilateral DVT. K. Luke Ratliff MD Lower Extremity MRI 04/05/17 0000 Signed Impressions: Service Date/Time: Wednesday, April 05, 2017 16:42 - CONCLUSION: Edematous soft tissues of the left leg. No abscess or osteomyelitis. Benton Hidalgo MD Patient/Family Conference Present at Family Conference: Patient. Cousin Kathie Saavedra via telephone. . Family Conference Time (mins): 32 Family Conference Location: Bedside, Telephone Issues Discussed: * Palliative care role, purpose, approach * Additional medical, psychosocial, and spiritual history * Patients general health, functional status, and cognitive changes in the months leading up to the current hospitalization * Patient/family understanding of the current medical problems - CHF exacerbation, COPD, hyperkalemia, UTI, pneumonia, atrial fibrillation with RVR, bilateral lower extremities edema with cellulitis, respiratory failure, DVTs. * Patient/family understanding of prognosis -guarded prognosis. High risk for further complications, decline and . * Patients goals of care as best understood from advance directives and/or conversations and/or values * Current medical treatment options and benefits/burdens of those options * Questions answered to the best of my ability * Palliative care contact information provided * Risks, benefits and limitations of CPR, intubation and mechanical ventilation . Assessment and Plan Disease Oriented Problem List: (1) Respiratory failure (2) Atrial fibrillation (3) Leg ulcer, left (4) Ulcer of right leg (5) DVT (deep venous thrombosis) (6) PNA (pneumonia) (7) Acute exacerbation of CHF (congestive heart failure) (8) UTI (urinary tract infection) (9) Hyperkalemia Symptom Scale: (1) Dyspnea 0-10 Scale: Unable to quantify Comment: Currently on a nonrebreather mask at 15 L. High risk for intubation and mechanical ventilation. (2) Pain 0-10 Scale: Unable to quantify Comment: Multiple wounds to bilateral lower extremities. (3) Edema 0-10 Scale: Unable to quantify Comment: Bilateral lower extremities edema. Pertinent Non-Medical Issues Psychosocial: Patient is single. No children. [employer] , disabled secondary to PTSD. Patient was born and raised in [place]. Highest level of education is high school. Spiritual: No alevism affiliation. Legal: No Advance directives completed. Ethical issues impacting care: No ethical issues identified. . Important Contacts Sister Clementine Barreto Cousin Kathie Saavedra brother Nolan Weinstein -pending number . Prognosis Mr. Rocha is a 72-year-old male with a medical history significant for COPD, CHF, hypertension, hyperlipidemia, poor medication compliance. Patient presented to ED on 04/03/17 via EMS for evaluation of bilateral lower extremity edema and wounds. Patient admitted for further management of UTI, pneumonia, CHF exacerbation, A. fib with RVR. Clinical course complicated by respiratory failure, increased oxygen requirement. Patient with advanced cardiac disease, EF 15%. Patient's overall prognosis is poor for a prolong survival. He remains a high risk for further complications, continue decline and . High risk for intubation and mechanical ventilation. . Code Status: Full Code Plan * CODE STATUS: Full code. Discussed risks, benefits and limitations of CPR, intubation and mechanical ventilation. Patient verbalized "if I needed, I needed". * HEALTHCARE DECISION-MAKING: Patient participating in medical decision-making, however, not very receptive to goals of care conversation with palliative care. Patient has been seen by psychiatry, De[place] capacitated for medical decision- making. Lungs directives completed. Patient is single, no children, parents are . As per [place] statute, healthcare proxy decision making falls to the majority of patient's siblings for which he has 2. Sister Clementine Barreto and brother Nolan Weinstein. Pending contact with siblings. (Brother Jacob Tipton previously listed as contact is now ). * GOALS OF CARE: Patient not very receptive to goals of care conversation. Goals appear aggressive, he verbalized being okay with intubation and mechanical ventilation "if needed". * SYMPTOMS: = Dyspnea: Secondary to CHF exacerbation, COPD. Bilateral lower extremity DVT, pending CT of chest to rule out PE. Worsening respiratory status now requiring nonrebreather mask at 15 L. High risk for intubation and mechanical ventilation. Programming Instructor following. = Pain: Secondary to bilateral lower extremities wound/cellulitis. Tramadol available as needed. = Edema: Acute on chronic to bilateral lower extremities. Currently on Lasix twice a day. * Palliative care contact information has been provided to patient and family. * Case discussed with bedside RN. * Palliative care will continue to follow-up for further clarifications of goals of care patient's clinical course continues to evolve. . Time Spent Total Floor Time (mins): 73 (Total time to include review and summarization of available medical records to include prior hospitalization, physical exam, goals of care conversation with patient, case discussion with bedside RN.) >50% Counseling/Coord of Care: Yes Thank you for the opportunity to participate in the care of Mr. Rocha. Attestation To help prompt me to consider important information that might be impacting today's encounter and assessment, information from prior notes written by myself or my colleagues may have been "brought forward" into today's note. My signature on this note, however, is an attestation that I personally performed the exam, history, and/or decision-making noted today, and, unless otherwise indicated, the interactions with patient, family, and staff as well as the review of records all occurred today. I also attest that the listed assessment and stated plan reflect my best clinical judgment today based on the combination of historical information, prior notes, and today's exam/ interactions. When time spent is documented, it refers only to time spent today by the signer, or if indicated, combined time spent today by collaborating physician/nurse practitioner. Areli Dunaway Apr 07, 2017 16:47
[2017-04-07 17:54] LABS: AUTOMATED NEUTROPHIL # 4.6 TH/MM3 (1.8-7.7); BASOPHIL # 0.1 TH/MM3 (0-0.2); BASOPHIL % 1.1 % (0.0-2.0); EOSINOPHIL # 0.4 TH/MM3 (0-0.4); EOSINOPHIL % 5.4 % (0.0-4.0); HEMOGLOBIN 15.8 GM/DL (13.0-17.0); LYMPHOCYTE # 1.6 TH/MM3 (1.0-4.8); MEAN CELL VOLUME 89.8 FL (80.0-100.0); MEAN CORPUSCULAR HEMOGLOBIN 30.2 PG (27.0-34.0); MEAN CORPUSCULAR HGB CONC 33.6 % (32.0-36.0); MEAN PLATELET VOLUME 8.6 FL (7.0-11.0); MONO % 12.4 % (0.0-8.0); MONOCYTE # 0.9 TH/MM3 (0-0.9); NEUT % 60.1 % (16.0-70.0); PLATELET COUNT 248 TH/MM3 (150-450); RED BLOOD COUNT 5.23 MIL/MM3 (4.50-5.90); RED CELL DISTRIBUTION WIDTH 16.3 % (11.6-17.2); WHITE BLOOD COUNT 7.6 TH/MM3 (4.0-11.0)
[2017-04-07] MEDS ORDERED: IOHEXOL 350 MG/ML 10 ML VIAL (for RAD DIAG) IVCONTRAST ONE (18:00)
--- NOTE | 2017-04-07 18:18 | RADRPT ---
EXAM DATE/TIME: 04/07/2017 17:51 [facility] COMPARISON: No previous studies available for comparison. INDICATIONS : Evaluate for pneumonia versus emboli. IV CONTRAST: 90 cc Omnipaque 350 (iohexol) IV RADIATION DOSE: 24.24 CTDIvol (mGy) MEDICAL HISTORY : Cardiovascular disease. Hypertension. Chronic obstructive pulmonary disease. SURGICAL HISTORY : None. ENCOUNTER: Initial ACUITY: 1 day PAIN SCALE: 0/10 LOCATION: Bilateral chest TECHNIQUE: Volumetric scanning of the chest was performed using a pulmonary embolism protocol MIP images were re constructed. Using automated exposure control and adjustment of the mA and/or kV according to patien t size, radiation dose was kept as low as reasonably achievable to obtain optimal diagnostic quality images. DICOM format image data is available electronically for review and comparison. Follow-up recommendations for detected pulmonary nodules are based at a minimum on nodule size and pa tient risk factors according to Fleischner Society Guidelines. FINDINGS: No filling defects to suggest pulmonary embolus. There is a large bullous lesion in the right lung ap ex containing a small amount of fluid and surrounding lung consolidation. Small bilateral pleural effusions and mild basilar air space disease in the lungs. Moderate to severe centrilobular emphysema. Multiple mildly enlarged hilar and mediastinal lymph nodes. Dense coronary calcifications. No acute findings in the upper abdomen. Mild anasarca. CONCLUSION: 1. Negative for pulmonary embolus. 2. Large bullous lesion at the right lung apex measuring at least 9 cm in diameter with a small amoun t of internal fluid and surrounding lung consolidation. Additional patchy airspace disease at both ba ses. Small bilateral pleural effusions. Moderate to severe centrilobular emphysema as well. 3. Severe coronary calcifications. 4. Mild hilar and mediastinal adenopathy. Raleigh Naranjo MD on April 07, 2017 at 18:10 Board Certified Radiologist. This report was verified electronically.
[2017-04-07] MEDS ORDERED: CHLORHEXIDINE GLUCONATE 2 % 1 PACK (2 CLOTHS)(extra cloths) TOPICAL PRN (21:30)
[2017-04-08] VITALS (21 sets, daily range): BP systolic 93–129; BP diastolic 59–92; PULSE 74–94; RESP 19–32; TEMP 98–98.7; O2SAT 4–100
[2017-04-08] MEDS: CHLORHEXIDINE GLUCONATE 2 % 1 PACK (2 CLOTHS)(taper/protocol) TOPICAL SCH (01:37)
[2017-04-08 06:05] LABS: AUTOMATED NEUTROPHIL # 3.1 TH/MM3 (1.8-7.7); BASOPHIL # 0.1 TH/MM3 (0-0.2); BASOPHIL % 1.3 % (0.0-2.0); EOSINOPHIL # 0.3 TH/MM3 (0-0.4); EOSINOPHIL % 5.5 % (0.0-4.0); HEMATOCRIT 40.7 % (39.0-51.0); HEMOGLOBIN 13.8 GM/DL (13.0-17.0); LYMPH % 22.6 % (9.0-44.0); LYMPHOCYTE # 1.2 TH/MM3 (1.0-4.8); MEAN CELL VOLUME 88.4 FL (80.0-100.0); MEAN CORPUSCULAR HEMOGLOBIN 30.1 PG (27.0-34.0); MEAN PLATELET VOLUME 8.9 FL (7.0-11.0); MONO % 12.6 % (0.0-8.0); MONOCYTE # 0.7 TH/MM3 (0-0.9); PLATELET COUNT 241 TH/MM3 (150-450); RED CELL DISTRIBUTION WIDTH 16.1 % (11.6-17.2); WHITE BLOOD COUNT 5.4 TH/MM3 (4.0-11.0)
[2017-04-08 06:09] LABS: INTERNATIONAL NORMALIZED RATIO 1.4 RATIO; PROTHROMBIN TIME - PATIENT 14.6 SEC (9.8-11.6)
[2017-04-08] MEDS: DOCUSATE SODIUM 100 MG CAP PO SCH ×3 (09:00→20:35)
[2017-04-08] MEDS: CARVEDILOL 6.25 MG TAB PO SCH ×3 (09:19→20:50)
[2017-04-08] MEDS: LISINOPRIL 5 MG TAB PO SCH (09:19)
[2017-04-08] MEDS: FUROSEMIDE 40 MG/4 ML VIAL IV PUSH SCH ×2 (09:20→17:00)
[2017-04-08] MEDS: ASPIRIN EC 81 MG TABEC PO SCH (09:20)
[2017-04-08] MEDS: DILTIAZEM HCL 30 MG TAB PO SCH ×4 (09:20→20:35)
[2017-04-08] MEDS: COLLAGENASE OINT 30 GM TUBE TOPICAL SCH (09:21)
[2017-04-08] MEDS: SODIUM CHLORIDE 0.9% FLUSH 10 ML FLUSH IV FLUSH SCH ×2 (09:21→20:35)
[2017-04-08] MEDS: GENTAMICIN SULFATE 0.1% CREAM 15 GM TOPICAL SCH (09:21)
[2017-04-08] MEDS: HEPARIN-D5W 25,000 U/250 ML 250 ML IV PRN (09:26)
--- NOTE | 2017-04-08 10:37 | PD.CARD.PN ---
Subjective Subjective Remarks No events overnight Patient states he's breathing well but on a NRB mask Objective Medications Current Medications Medications (Trade) Dose Ordered Sig/Deacon Route Start Time Stop Time Status Last Admin (NS Flush) 2 ml UNSCH PRN IV FLUSH 04/03/17 11:00 (NS Flush) 2 ml BID IV FLUSH 04/03/17 21:00 04/08/17 09:21 (Tylenol) 650 mg Q4H PRN PO 04/03/17 11:00 (Cardizem) 30 mg QID PO 04/03/17 13:00 04/08/17 09:20 (Ecotrin Ec) 81 mg DAILY PO 04/03/17 13:00 04/08/17 09:20 Ceftriaxone Sodium 1000 mg/ Sodium Chloride 100 ml @ 200 mls/hr Q24H IV 04/04/17 15:00 04/06/17 15:31 Azithromycin 500 mg/Sodium Chloride 250 ml @ 250 mls/hr Q24H IV 04/04/17 14:00 04/06/17 13:31 (Coreg) 6.25 mg Q12HR PO 04/05/17 11:00 04/08/17 09:19 (Prinivil) 2.5 mg DAILY PO 04/06/17 09:00 04/08/17 09:19 Pharmacy Profile Note 0 ml @ 0 mls/hr UNSCH OTHER 04/05/17 10:30 (Lasix Inj) 40 mg BID@09,18 IV PUSH 04/05/17 18:00 04/08/17 09:20 (Pill Splitter) 1 ea UNSCH PRN OTHER 04/05/17 11:00 (Ultram) 50 mg Q6H PRN PO 04/05/17 12:15 04/07/17 03:28 (Coumadin) 5 mg DAILY@1600 PO 04/05/17 16:00 04/06/17 15:30 Heparin Sodium/ Dextrose 250 ml @ 15 mls/hr TITRATE PRN IV 04/06/17 13:45 04/08/17 09:26 (Gentamicin 0.1% Cream) 1 applic DAILY TOPICAL 04/07/17 09:00 04/08/17 09:21 (Santyl Oint) 1 applic DAILY TOPICAL 04/07/17 09:00 04/08/17 09:21 (Colace) 100 mg BID PO 04/07/17 09:00 04/07/17 08:47 (Milk Of Magnesia Liq) 30 ml Q6H PRN PO 04/07/17 01:30 04/07/17 09:04 Miscellaneous Information Patient in critical care unit? Ass... [id number] .XX 04/07/17 21:30 04/07/17 21:30 (Chlorhexidine 2% Cloth) 3 pack DAILY@04 TOPICAL 04/08/17 04:00 04/12/17 04:01 04/08/17 01:37 (Chlorhexidine 2% Cloth) 3 pack UNSCH PRN TOPICAL 04/07/17 21:30 04/12/17 21:20 Vital Signs / I&O Vital Signs Date Time Temp Pulse Resp B/P (MAP) Pulse Ox O2 Delivery O2 Flow Rate FiO2 04/08/17 07:00 100 Non-Rebreather 15.00 04/08/17 04:00 98.4 79 26 99/64 (76) 93 04/08/17 03:38 92 Venturi Mask 6.00 50 04/08/17 03:27 92 Venturi Mask 50 04/08/17 00:00 98.0 80 23 103/67 (79) 98 04/07/17 20:32 97 Non-Rebreather 15.00 04/07/17 20:00 98.2 96 23 115/81 (92) 94 04/07/17 19:00 96 Non-Rebreather 15.00 04/07/17 15:20 97.7 90 28 98/71 (80) 100 04/07/17 13:42 Non-Rebreather 04/07/17 12:00 82 04/07/17 12:00 97.2 57 20 123/74 (90) 98 I/O 04/07/17 04/07/17 04/07/17 04/08/17 04/08/17 04/08/17 06:59 14:59 22:59 06:59 14:59 22:59 Intake Total 405 ml 240 ml 480 ml Output Total 1200 ml 1000 ml 100 ml 1300 ml 225 ml Balance -795 ml -1000 ml 140 ml -820 ml -225 ml Intake Oral 240 ml 240 ml 480 ml IV Total 165 ml Output Urine Total 1200 ml 1000 ml 100 ml 1300 ml 225 ml # Voids 3 # Bowel Movements 0 1 0 Physical Exam GENERAL: NAD, AAOx3 SKIN: Warm and dry. HEAD: Atraumatic. Normocephalic. EYES: Pupils equal and round. No scleral icterus. No injection or drainage. ENT: No nasal bleeding or discharge. Mucous membranes pink and moist. NECK: Trachea midline. No JVD. CARDIOVASCULAR: Regular rate and rhythm. RESPIRATORY: No accessory muscle use. Decreased breath sounds bilaterally, mild crackles at the bases GASTROINTESTINAL: Abdomen soft, non-tender, nondistended. Hepatic and splenic margins not palpable. MUSCULOSKELETAL: Extremities with mild edema bilaterally NEUROLOGICAL: Awake and alert. No obvious cranial nerve deficits. Motor grossly within normal limits. Five out of 5 muscle strength in the arms and legs. Normal speech. PSYCHIATRIC: Appropriate mood and affect; insight and judgment normal. Laboratory Laboratory Tests Test 04/07/17 15:25 04/07/17 17:08 04/07/17 22:30 04/08/17 04:33 Nasal Screen MRSA (PCR) MRSA NOT DETECTED White Blood Count 7.6 TH/MM3 5.4 TH/MM3 Red Blood Count 5.23 MIL/MM3 4.60 MIL/MM3 Hemoglobin 15.8 GM/DL 13.8 GM/DL Hematocrit 47.0 % 40.7 % Mean Corpuscular Volume 89.8 FL 88.4 FL Mean Corpuscular Hemoglobin 30.2 PG 30.1 PG Mean Corpuscular Hemoglobin Concent 33.6 % 34.0 % Red Cell Distribution Width 16.3 % 16.1 % Platelet Count 248 TH/MM3 241 TH/MM3 Mean Platelet Volume 8.6 FL 8.9 FL Neutrophils (%) (Auto) 60.1 % 58.0 % Lymphocytes (%) (Auto) 21.0 % 22.6 % Monocytes (%) (Auto) 12.4 % 12.6 % Eosinophils (%) (Auto) 5.4 % 5.5 % Basophils (%) (Auto) 1.1 % 1.3 % Neutrophils # (Auto) 4.6 TH/MM3 3.1 TH/MM3 Lymphocytes # (Auto) 1.6 TH/MM3 1.2 TH/MM3 Monocytes # (Auto) 0.9 TH/MM3 0.7 TH/MM3 Eosinophils # (Auto) 0.4 TH/MM3 0.3 TH/MM3 Basophils # (Auto) 0.1 TH/MM3 0.1 TH/MM3 CBC Comment DIFF FINAL DIFF FINAL Differential Comment Activated Partial Thromboplast Time 53.5 SEC 58.5 SEC 55.4 SEC Prothrombin Time 14.6 SEC Prothromb Time International Ratio 1.4 RATIO Assessment and Plan Problem List: (1) Atrial fibrillation ICD Codes: I48.91 - Unspecified atrial fibrillation (2) Acute exacerbation of CHF (congestive heart failure) ICD Codes: I50.9 - Heart failure, unspecified Status: Acute (3) DVT (deep venous thrombosis) ICD Codes: I82.409 - Acute embolism and thrombosis of unspecified deep veins of unspecified lower extremity Status: Acute (4) Dyspnea ICD Codes: R06.00 - Dyspnea, unspecified (5) Edema ICD Codes: R60.9 - Edema, unspecified (6) Respiratory failure ICD Codes: J96.90 - Respiratory failure, unspecified, unspecified whether with hypoxia or hypercapnia Assessment and Plan 1) CHF Nuclear stress test negative EF 20-25% by echo with global dyskinesia Con't diuresis ASA/Coreg/Lisinopril 2) B/L LE DVT Heparin/Coumadin per primary team 3) Afib On anticoagulation for DVT Problem Qualifiers (1) Acute exacerbation of CHF (congestive heart failure): Qualified Codes: I50.9 - Heart failure, unspecified (2) DVT (deep venous thrombosis): Merrick Delgado DO Apr 08, 2017 10:37
[2017-04-08] MEDS: cefTRIAXone INJ 1,000 MG in SODIUM CHLORIDE 0.9% INJ 100 ML IV SCH (13:54)
[2017-04-08] MEDS: AZITHROMYCIN INJ 500 MG in SODIUM CHLOR 0.9% 250 ML INJ 250 ML IV SCH (13:54)
--- NOTE | 2017-04-08 13:56 | HHI.HCPN ---
Reason for visit a. To assist with evaluation and management of symptoms including: Shortness of breath, debility. b. To assist medical decision maker(s) with: better understanding of current medical conditions; weighing benefits/burdens of medical treatment options; making medical treatment decisions. . Subjective/Interval History Palliative care follow-up for further clarifications of goals of care. Patient seen in medical ICU. He remains on nonrebreather mask at 15 L. Patient alert and oriented x self, place and situation. Endorsing intermittent chest pain, unable to elaborate a complaint. Patient reports that his appetite is good, denies nausea/vomiting or abdominal discomfort. Echocardiogram 04/04/17 revealing EF fraction of 15%, mild left ventricular hypertrophy, mild mitral valve regurgitation, [id number] aortic regurgitation. Follow-up echo 04/07 revealing EF of 20-25% with global dyskinesia. Cardiology, Dr. Delgado following. Patient with bilateral lower extremities DVTs. CTA of chest negative for PE. Remains on heparin drip/Coumadin. Patient remains afebrile, stable hemodynamically. BNP remains elevated 2498. Attempted to readdressed goals of care with patient. Patient not very receptive to conversation. Patient reports that no advance directives have been completed. Assistance with completion of living will and designation of healthcare surrogate offered. Patient declining assistance. He reports not wishing to designate anyone to make decisions. Reviewed that as per [place] statute, both of his siblings Brijesh and Nolan would make medical decisions on his behalf. Patient tells me that he wants "nothing to do with them". Encouraged patient once more to complete designation of healthcare surrogate, patient continue declining. Reviewed CODE STATUS, patient verbalized "not wanting to talk about it". Reviewed with patient that by default he is full code, patient said "OK". Telephone conversation with patient's sister Clementine Barreto, general medical update provided. Sister to notify brother Nolan Weinstein of patient's condition and location. Reviewed with sister that patient at this time is able to make decisions on his behalf. However, depending on his clinical course, we may require their assistance. Sister verbalized understanding. . Family/friend interactions See interval note. . Advance Directives Living Will: Never completed Health Care Surrogate: Never completed Durable Power of Carpenter Packing: Never completed Advance Directive Specifics Health Care Surrogate(s): No advance directives completed. Patient is single, no children. Parents are . Patient has 2 siblings. As per [place] statute, healthcare proxy decision maker falls to the majority of siblings who are reasonably available for consultation. . Significant change in goals: Goals remain aggressive. . Objective Vital Signs Date Time Temp Pulse Resp B/P (MAP) Pulse Ox O2 Delivery O2 Flow Rate FiO2 04/08/17 07:00 100 Non-Rebreather 15.00 04/08/17 04:00 98.4 79 26 99/64 (76) 93 04/08/17 03:38 92 Venturi Mask 6.00 50 04/08/17 03:27 92 Venturi Mask 50 04/08/17 00:00 98.0 80 23 103/67 (79) 98 04/07/17 20:32 97 Non-Rebreather 15.00 04/07/17 20:00 98.2 96 23 115/81 (92) 94 04/07/17 19:00 96 Non-Rebreather 15.00 04/07/17 15:20 97.7 90 28 98/71 (80) 100 04/07/17 13:42 Non-Rebreather Intake & Output 04/08/17 04/08/17 07:00 19:00 Intake Total 480 ml Output Total 1300 ml 225 ml Balance -820 ml -225 ml Intake Oral 480 ml Output Urine Total 1300 ml 225 ml # Bowel Movements 0 Physical Exam CONSTITUTIONAL/GENERAL: This is an adequately nourished patient, in no apparent distress. Irritable. TUBES/LINES/DRAINS: PIV's, nonrebreather mask. SKIN: No jaundice, rashes, Skin temperature appropriate. Not diaphoretic. Wounds reported to bilateral lower extremities, wrapped in Kerlix. Dressing dry , intact. HEAD: Atraumatic. Normocephalic. EYES: Pupils equal and round and reactive. Extraocular motions intact. No scleral icterus. No injection or drainage. ENT: Hearing grossly normal. Nose without bleeding or purulent drainage. Moist oral mucosa. Poor dentition. NECK: Trachea midline. Supple, nontender. CARDIOVASCULAR: Irregular rate and rhythm without murmurs. Bilateral lower extremity edema. RESPIRATORY/CHEST: Symmetric, intermittent increased work of breathing while on nonrebreather mask. Scattered rhonchi bilaterally. GASTROINTESTINAL: Abdomen soft, large, round. No guarding. Bowel sounds present. Unable to appreciate hepatomegaly secondary to body habitus. GENITOURINARY: Without palpable bladder distension. MUSCULOSKELETAL: Extremities without clubbing, cyanosis. No mottling or clubbing. NEUROLOGICAL: Awake and alert. Verbal. Motor and sensory grossly within normal limits. Follows commands. Moves all extremities. PSYCHIATRIC: Irritable. . Diagnostic Tests Laboratory Laboratory Tests Test 04/06/17 04:15 04/06/17 17:23 04/07/17 00:37 04/07/17 07:40 Prothrombin Time 12.4 SEC (9.8-11.6) 12.3 SEC (9.8-11.6) 13.9 SEC (9.8-11.6) Prothromb Time International Ratio 1.2 RATIO 1.2 RATIO 1.4 RATIO White Blood Count 7.6 TH/MM3 (4.0-11.0) Red Blood Count 4.84 MIL/MM3 (4.50-5.90) Hemoglobin 14.4 GM/DL (13.0-17.0) Hematocrit 42.9 % (39.0-51.0) Mean Corpuscular Volume 88.6 FL (80.0-100.0) Mean Corpuscular Hemoglobin 29.7 PG (27.0-34.0) Mean Corpuscular Hemoglobin Concent 33.5 % (32.0-36.0) Red Cell Distribution Width 16.5 % (11.6-17.2) Platelet Count 237 TH/MM3 (150-450) Mean Platelet Volume 8.5 FL (7.0-11.0) Activated Partial Thromboplast Time 27.4 SEC (24.3-30.1) 65.0 SEC (24.3-30.1) 84.0 SEC (24.3-30.1) Blood Urea Nitrogen 12 MG/DL (7-18) Creatinine 0.91 MG/DL (0.60-1.30) Random Glucose 137 MG/DL (74-106) Calcium Level 8.0 MG/DL (8.5-10.1) Sodium Level 135 MEQ/L (136-145) Potassium Level 3.7 MEQ/L (3.5-5.1) Chloride Level 99 MEQ/L (98-107) Carbon Dioxide Level 29.1 MEQ/L (21.0-32.0) Anion Gap 7 MEQ/L (5-15) Estimat Glomerular Filtration Rate 99 ML/MIN (>89) B-Type Natriuretic Peptide 2541 PG/ML (0-100) Test 04/07/17 07:46 04/07/17 15:25 04/07/17 17:08 04/07/17 22:30 Blood Urea Nitrogen 12 MG/DL (7-18) Creatinine 0.69 MG/DL (0.60-1.30) Random Glucose 95 MG/DL (74-106) Calcium Level 8.2 MG/DL (8.5-10.1) Sodium Level 134 MEQ/L (136-145) Potassium Level 3.8 MEQ/L (3.5-5.1) Chloride Level 99 MEQ/L (98-107) Carbon Dioxide Level 27.0 MEQ/L (21.0-32.0) Anion Gap 8 MEQ/L (5-15) Estimat Glomerular Filtration Rate 136 ML/MIN (>89) B-Type Natriuretic Peptide 2498 PG/ML (0-100) Nasal Screen MRSA (PCR) MRSA NOT DETECTED (NOT White Blood Count 7.6 TH/MM3 (4.0-11.0) Red Blood Count 5.23 MIL/MM3 (4.50-5.90) Hemoglobin 15.8 GM/DL (13.0-17.0) Hematocrit 47.0 % (39.0-51.0) Mean Corpuscular Volume 89.8 FL (80.0-100.0) Mean Corpuscular Hemoglobin 30.2 PG (27.0-34.0) Mean Corpuscular Hemoglobin Concent 33.6 % (32.0-36.0) Red Cell Distribution Width 16.3 % (11.6-17.2) Platelet Count 248 TH/MM3 (150-450) Mean Platelet Volume 8.6 FL (7.0-11.0) Neutrophils (%) (Auto) 60.1 % (16.0-70.0) Lymphocytes (%) (Auto) 21.0 % (9.0-44.0) Monocytes (%) (Auto) 12.4 % (0.0-8.0) Eosinophils (%) (Auto) 5.4 % (0.0-4.0) Basophils (%) (Auto) 1.1 % (0.0-2.0) Neutrophils # (Auto) 4.6 TH/MM3 (1.8-7.7) Lymphocytes # (Auto) 1.6 TH/MM3 (1.0-4.8) Monocytes # (Auto) 0.9 TH/MM3 (0-0.9) Eosinophils # (Auto) 0.4 TH/MM3 (0-0.4) Basophils # (Auto) 0.1 TH/MM3 (0-0.2) CBC Comment DIFF FINAL Differential Comment Activated Partial Thromboplast Time 53.5 SEC (24.3-30.1) 58.5 SEC (24.3-30.1) Test 04/08/17 04:33 White Blood Count 5.4 TH/MM3 (4.0-11.0) Red Blood Count 4.60 MIL/MM3 (4.50-5.90) Hemoglobin 13.8 GM/DL (13.0-17.0) Hematocrit 40.7 % (39.0-51.0) Mean Corpuscular Volume 88.4 FL (80.0-100.0) Mean Corpuscular Hemoglobin 30.1 PG (27.0-34.0) Mean Corpuscular Hemoglobin Concent 34.0 % (32.0-36.0) Red Cell Distribution Width 16.1 % (11.6-17.2) Platelet Count 241 TH/MM3 (150-450) Mean Platelet Volume 8.9 FL (7.0-11.0) Neutrophils (%) (Auto) 58.0 % (16.0-70.0) Lymphocytes (%) (Auto) 22.6 % (9.0-44.0) Monocytes (%) (Auto) 12.6 % (0.0-8.0) Eosinophils (%) (Auto) 5.5 % (0.0-4.0) Basophils (%) (Auto) 1.3 % (0.0-2.0) Neutrophils # (Auto) 3.1 TH/MM3 (1.8-7.7) Lymphocytes # (Auto) 1.2 TH/MM3 (1.0-4.8) Monocytes # (Auto) 0.7 TH/MM3 (0-0.9) Eosinophils # (Auto) 0.3 TH/MM3 (0-0.4) Basophils # (Auto) 0.1 TH/MM3 (0-0.2) CBC Comment DIFF FINAL Differential Comment Prothrombin Time 14.6 SEC (9.8-11.6) Prothromb Time International Ratio 1.4 RATIO Activated Partial Thromboplast Time 55.4 SEC (24.3-30.1) Result Diagram: 04/08/17 0433 04/07/17 0746 Microbiology Microbiology Date/Time Source Procedure Growth Status 04/05/17 15:44 Wound Leg Gram Stain - Final Complete 04/05/17 15:44 Wound Leg Wound Culture - Final Complete Assessment and Plan Disease Oriented Problem List: (1) Respiratory failure (2) Atrial fibrillation (3) Leg ulcer, left (4) Ulcer of right leg (5) DVT (deep venous thrombosis) (6) PNA (pneumonia) (7) Acute exacerbation of CHF (congestive heart failure) (8) UTI (urinary tract infection) (9) Hyperkalemia Symptom Scale: (1) Dyspnea 0-10 Scale: Unable to quantify Comment: Currently on a nonrebreather mask at 15 L. High risk for intubation and mechanical ventilation. (2) Pain 0-10 Scale: Unable to quantify Comment: Multiple wounds to bilateral lower extremities. (3) Edema 0-10 Scale: Unable to quantify Comment: Bilateral lower extremities edema. Pertinent Non-Medical Issues Psychosocial: Patient is single. No children. [employer] , disabled secondary to PTSD. Patient was born and raised in [place]. Highest level of education is high school. Spiritual: No mu-ism affiliation. Legal: No Advance directives completed. Ethical issues impacting care: No ethical issues identified. . Important Contacts Sister Clementine Barreto Brother Nolan Weinstein Cousin Kathie Saavedra . Prognosis Mr. Rocha is a 72-year-old male with a medical history significant for COPD, CHF, hypertension, hyperlipidemia, poor medication compliance. Patient presented to ED on 04/03/17 via EMS for evaluation of bilateral lower extremity edema and wounds. Patient admitted for further management of UTI, pneumonia, CHF exacerbation, A. fib with RVR. Clinical course complicated by respiratory failure, increased oxygen requirement. Patient with advanced cardiac disease, EF 15%. Patient's overall prognosis is poor for a prolong survival. He remains a high risk for further complications, continue decline and . High risk for intubation and mechanical ventilation. . Code Status: Full Code Plan * CODE STATUS: Full code. * HEALTHCARE DECISION-MAKING: Patient participating in medical decision-making, however, not very receptive to goals of care conversation with palliative care. Patient has been seen by psychiatry, deemed capacitated for medical decision- making. No advance directives completed. Patient is single, no children, parents are . As per [place] statute, healthcare proxy decision making falls to the majority of patient's siblings for which he has 2. Sister Clementine Barreto and brother Nolan Weinstein. (Brother Jacob Tipton previously listed as contact is now ). Patient declined assistance with completion of designation of healthcare surrogate. * GOALS OF CARE: Patient not receptive to goals of care conversation. Goals appear aggressive, he verbalized being okay with intubation and mechanical ventilation "if needed". 04/08/17 -Readdressed CODE STATUS, patient verbalized "not wanting to talk about it". Reviewed with patient that by default he is full code, patient said "OK". * SYMPTOMS: = Dyspnea: Secondary to CHF exacerbation, COPD. Bilateral lower extremity DVT, CTA negative for PE. Worsening respiratory status now requiring nonrebreather mask at 15 L. High risk for intubation and mechanical ventilation. Structural Architect following. = Pain: Secondary to bilateral lower extremities wound/cellulitis. Tramadol available as needed. = Edema: Acute on chronic to bilateral lower extremities. Currently on Lasix twice a day. * Palliative care contact information has been provided to patient and family. * Palliative care will continue to follow-up as needed for further clarifications of goals of care patient's clinical course continues to evolve. . Time Spent Total Floor Time (mins): 37 (Total time to include review of medical records, physical exam, goals of care conversation with patient, telephone conversation with patient's sister Clementine. ) >50% Counseling/Coord of Care: Yes Attestation To help prompt me to consider important information that might be impacting today's encounter and assessment, information from prior notes written by myself or my colleagues may have been "brought forward" into today's note. My signature on this note, however, is an attestation that I personally performed the exam, history, and/or decision-making noted today, and, unless otherwise indicated, the interactions with patient, family, and staff as well as the review of records all occurred today. I also attest that the listed assessment and stated plan reflect my best clinical judgment today based on the combination of historical information, prior notes, and today's exam/ interactions. When time spent is documented, it refers only to time spent today by the signer, or if indicated, combined time spent today by collaborating physician/nurse practitioner. Areli Dunaway Apr 08, 2017 13:56
[2017-04-08 16:17] LABS: BICARBONATE 32.7 MEQ/L (21.0-32.0); CALCIUM 8.6 MG/DL (8.5-10.1); CREATININE 0.77 MG/DL (0.60-1.30)
[2017-04-08] MEDS ORDERED: POTASSIUM CHLORIDE 20 MEQ PWD PACKET PO ONE (16:45)
[2017-04-08] MEDS: WARFARIN SOD 5 MG TAB PO SCH (16:59)
--- NOTE | 2017-04-08 18:25 | MB ---
cc: TANIA MARIN DATE OF CONSULTATION 04/08/17 REASON FOR CONSULTATION Respiratory failure, COPD. HISTORY OF PRESENT ILLNESS Mr. Rocha is a 72-year-old -[place] male with known history of COPD, congestive heart failure, atrial fibrillation, hypertension, hyperlipidemia, chronic respiratory failure on five liters oxygen nasal cannula at home admitted with increasing shortness of breath and lower extremity edema and apparent cellulitis. The patient's shortness of breath is improved. He is quite difficult to understand and take a adequate history from. Most of his history is obtained from his record. PAST MEDICAL HISTORY 1. Chronic obstructive pulmonary disease 2. Congestive heart failure, 3. Hypertension, 4. Hyperlipidemia, 5. Atrial fibrillation. 6. Pre-diabetic ALLERGIES None known to medication MEDICATIONS Current, 1. Cardizem. 2. Ceftriaxone. 3. Zithromax. 4. Coreg 5. Prinivil 6. Lasix, 7. Colace 8. Milk of Magnesia ALLERGIES PENICILLIN FAMILY HISTORY Noncontributory. REVIEW OF SYSTEMS: A 12-point review as per HPI and past history otherwise negative. PHYSICAL EXAMINATION GENERAL: On exam the patient is alert in no distress. VITAL SIGNS: Temperature 98, pulse 90, respiration 20 Blood pressure 120/80, oxygen saturation 92% on five liters oxygen nasal cannula. He has to be switched back and forth to higher inspired oxygen. HEENT: Exam unremarkable. Eyes are without icterus. NECK: Without adenopathy or thyroid enlargement. CHEST: No dullness to percussion. A few rhonchi at bases on auscultation. CARDIAC: PMI distant. Irregularity noted. ABDOMEN: Lax, bowel sounds audible. EXTREMITIES: 1+ edema. LABORATORY DATA White count 13.9 on April 07, hemoglobin 14, hematocrit 42 on April 06, platelets 237,000. Sodium 134, potassium 3.8, BUN 12, creatinine 0.6. IMAGING STUDIES Chest x-ray done April 07 with increasing bilateral infiltrates, question worsening CHF. IMPRESSION 1. Acute on chronic respiratory failure 2. Congestive heart failure. 3. Chronic obstructive pulmonary disease 4. Atrial fibrillation 5. DVT 6. Urinary tract infection 7. Hyperkalemia. PLAN The patient will be maintained on oxygen therapy as needed. Bronchodilators continued. Therapy for CHF undertaken. High-flow O2 by nasal cannula given until the patient's oxygenation requirement stabilizes and then he could be placed back on O2 via nasal cannula. His prognosis with his multiple medical problems is poor. I do thank you for asking me to partake in Mr. Rocha's care. Tania Marin MD WWW/ /5:58 PM /6:07 PM
--- NOTE | 2017-04-08 20:21 | HHI.PR ---
Subjective Remarks this is a follow-up on respiratory failure CHF exacerbation patient resting in bed awake, I couldn't understand what he is saying he is mostly mumbling He is on on nonrebreather mask, he does not look in a better condition today His need for oxygen continue to increase, a continue to cause for full code and aggressive treatment Palliative care has been consulted as well as psychiatry and they both deemed competency to make decision with this patient still in the ICU Objective Vitals Vital Signs Date Time Temp Pulse Resp B/P (MAP) Pulse Ox O2 Delivery O2 Flow Rate FiO2 04/08/17 19:00 92 25.00 50 04/08/17 18:49 93 Leaflet Distributor 25.00 50 04/08/17 18:22 4 High Flow Nasal Cannula 30.00 60 04/08/17 18:00 81 04/08/17 17:00 80 32 104/67 (79) 93 04/08/17 16:00 98.7 74 27 115/72 (86) 96 04/08/17 16:00 74 04/08/17 15:01 84 26 93/62 (72) 97 04/08/17 14:00 78 23 117/72 (87) 96 04/08/17 14:00 78 04/08/17 13:03 80 25 117/72 (87) 95 04/08/17 12:00 80 04/08/17 12:00 98.7 80 31 96/59 (71) 77 04/08/17 11:01 75 27 102/69 (80) 96 04/08/17 10:00 87 23 118/74 (89) 97 04/08/17 10:00 87 04/08/17 09:01 94 27 122/92 (102) 95 04/08/17 08:00 87 04/08/17 08:00 98.5 87 19 115/74 (88) 98 04/08/17 07:00 100 Non-Rebreather 15.00 04/08/17 07:00 89 28 129/85 (100) 100 04/08/17 06:00 81 25 126/79 (95) 99 04/08/17 05:00 81 29 119/74 (89) 100 04/08/17 04:00 98.4 79 26 99/64 (76) 93 04/08/17 03:38 92 Venturi Mask 6.00 50 04/08/17 03:27 92 Venturi Mask 50 04/08/17 00:00 98.0 80 23 103/67 (79) 98 04/07/17 20:32 97 Non-Rebreather 15.00 I/O 04/07/17 04/07/17 04/07/17 04/08/17 04/08/17 04/08/17 07:00 15:00 23:00 07:00 15:00 23:00 Intake Total 405 ml 240 ml 480 ml 1173 ml Output Total 1200 ml 1000 ml 100 ml 1300 ml 225 ml 1450 ml Balance -795 ml -1000 ml 140 ml -820 ml -225 ml -277 ml Intake Oral 240 ml 240 ml 480 ml 350 ml IV Total 165 ml 823 ml Output Urine Total 1200 ml 1000 ml 100 ml 1300 ml 225 ml 1450 ml # Voids 3 # Bowel Movements 0 1 0 Result Diagram: 04/08/17 0433 04/08/17 1456 Imaging Last Impressions Chest X-Ray 04/07/17 0000 Signed Impressions: Service Date/Time: Friday, April 07, 2017 09:44 - CONCLUSION: Worsening bilateral pulmonary infiltrates. Cardiomegaly. Luis Marmolejo Jr., MD CT Angiography 04/07/17 0000 Signed Impressions: Service Date/Time: Friday, April 07, 2017 17:51 - CONCLUSION: 1. Negative for pulmonary embolus. 2. Large bullous lesion at the right lung apex measuring at least 9 cm in diameter with a small amount of internal fluid and surrounding lung consolidation. Additional patchy airspace disease at both bases. Small bilateral pleural effusions. Moderate to severe centrilobular emphysema as well. 3. Severe coronary calcifications. 4. Mild hilar and mediastinal adenopathy. Raleigh Naranjo MD Tibia/Fibula X-Ray 04/05/17 0000 Signed Impressions: Service Date/Time: Wednesday, April 05, 2017 16:28 - CONCLUSION: Soft tissue swelling without fracture or periosteal reaction. Benton Hidalgo MD Myocardial Perfusion Scan Nuc Med 04/05/17 0000 Signed Impressions: Service Date/Time: Wednesday, April 05, 2017 14:29 - CONCLUSION: No appreciable ischemia. RISK CATEGORY: Low (<1%% Annual Mortality Rate) Anna Ratliff MD Lower Extremity Ultrasound 04/05/17 0000 Signed Impressions: Service Date/Time: Wednesday, April 05, 2017 10:30 - CONCLUSION: Bilateral DVT. Anna Ratliff MD Lower Extremity MRI 04/05/17 0000 Signed Impressions: Service Date/Time: Wednesday, April 05, 2017 16:42 - CONCLUSION: Edematous soft tissues of the left leg. No abscess or osteomyelitis. Benton Hidalgo MD Objective Remarks - - GENERAL: This is a debilitated thin elderly man on nonrebreather mask CARDIOVASCULAR: Regular rate and irregular rhythm without murmurs, gallops, or rubs. RESPIRATORY: bilateral crackles GASTROINTESTINAL: Abdomen soft, non-tender, nondistended. Normal, active bowel sounds MUSCULOSKELETAL: Left lower extremity with 7 cm ulcer which has eschar tissue in it, right lower extremity with 10 cm ulcer which show granulation healing NEURO: mumbling awake, moves all extremities A/P Assessment and Plan 04/04: Chest x-ray showing right lobe and base airspace disease, I will place patient back on Rocephin and Zithromax, I discussed with the wound care patient had necrotic tissue on the left leg will consult podiatry 2-D echo came showing ejection fraction of 15% home will consult cardiology for advanced heart failure management, monitor BMP last value was 04/05:2 echo showed EF 15%,cardiology consulted appreciate their input, heart failure optimization, appreciate podiatry consult, workup to assess circulation in lower extremity 04/06: today ultrasound of the lower extremity revealed bilateral DVT patient was already started on warfarin by cardiology for A. fib, I discussed with Dr. De Jesus who agreed to start on heparin drip and hold on on debridement of the lower extremity at this point. Patient constantly refused blood thinner, I will consult palliative care and psychiatry to assess goal of treatment and competency 04/07: Patient still hypoxic on nonrebreather mask, I ordered a stat CT chest to confirm PE as a component of underlying cause of the hypoxia and to assess his pneumonia, I will transfer patient to the ICU, palliative care consulted patient so far full code and seems to want aggressive treatment however he continue to refuse and not understand the role of the blood thinner, psychiatry consulted, continue monitor INR, patient on heparin drip 04/08: still poor condition and prognosis, on nonrebreather mask 2-D echo showed 20-25% EF, CT chest did not show PE however it shows Large bullous lesion at the right lung apex measuring at least 9 cm in diameter with a small amount of internal fluid and surrounding lung consolidation. Additional patchy airspace disease at both bases. Small bilateral pleural effusions. Moderate to severe centrilobular emphysema as well. 3. Severe coronary calcifications. 4. Mild hilar and mediastinal adenopathy. pulmonary consulted A/P: This is a 72-year-old male past history of COPD on oxygen, CHF, and noncompliance who presented with chronic lower extremity edema and wounds found to have atrial fibrillation with RVR Atrial fibrillation with RVR Bilateral DVT in lower extremity -Patient given a dose of Cardizem 10 mg IV. Heart rate continues to be in the 90s to 130s. Was started on Cardizem drip. Will also start oral Cardizem he milligrams 4 times a day. -We will obtain echo. Troponin negative. Will trend cardiac enzymes and order TSH. -CHADSVASC2 score 2 (age and CHF.). Patient declined anticoagulation he is convinced it's of no benefit. Extensive discussion and education about beneficial anticoagulation for stroke prevention. Patient started on warfarin anyway by cardiology, started on heparin drip if patient continued to decline will need palliative care and psychiatry to decide on competency Community-acquired pneumonia showed on a chest x-ray, Minimal airspace disease in right midlung and right base Patient received Rocephin Zithromax in ED I will resume that Continue O2, DuoNeb CHF exacerbation -Chest x-ray shows minimal left airspace disease in the mid lung. BMP 1912. Patient also had lower extremity edema. -Start oral Lasix. UTI with Escherichia coli/Klebsiella Sensitive to ceftriaxone Chronic lower extremity edema and wounds -Patient is noncompliant. There are no signs of infection. Labs obtain no leukocytosis. Remains afebrile. -Awaiting 2-D echo -Care Right mid and lower lobe pneumonia with respiratory failure -Combination of CHF and COPD. -Continue with oxygen. At home patients on 5 L. Hyperkalemia -Due to hemolyzes. DVT prophylaxis -Lovenox. Josué Gallegos MD Apr 08, 2017 20:21
[2017-04-09] VITALS (15 sets, daily range): BP systolic 99–121; BP diastolic 63–73; PULSE 78–101; RESP 19–38; TEMP 98.1–98.4; O2SAT 90–98
[2017-04-09] MEDS: CHLORHEXIDINE GLUCONATE 2 % 1 PACK (2 CLOTHS)(taper/protocol) TOPICAL SCH (04:00)
[2017-04-09 06:03] LABS: HEMATOCRIT 42.2 % (39.0-51.0); HEMOGLOBIN 14.3 GM/DL (13.0-17.0); MEAN CELL VOLUME 87.5 FL (80.0-100.0); MEAN CORPUSCULAR HEMOGLOBIN 29.7 PG (27.0-34.0); PLATELET COUNT 245 TH/MM3 (150-450); RED BLOOD COUNT 4.82 MIL/MM3 (4.50-5.90); RED CELL DISTRIBUTION WIDTH 15.9 % (11.6-17.2); WHITE BLOOD COUNT 5.7 TH/MM3 (4.0-11.0)
[2017-04-09 06:12] LABS: INTERNATIONAL NORMALIZED RATIO 1.4 RATIO; PROTHROMBIN TIME - PATIENT 14.5 SEC (9.8-11.6)
[2017-04-09] MEDS: HEPARIN-D5W 25,000 U/250 ML 250 ML IV PRN (07:28)
[2017-04-09] MEDS: ASPIRIN EC 81 MG TABEC PO SCH (08:52)
[2017-04-09] MEDS: LISINOPRIL 5 MG TAB PO SCH (08:52)
[2017-04-09] MEDS: FUROSEMIDE 40 MG/4 ML VIAL IV PUSH SCH ×2 (08:52→17:38)
[2017-04-09] MEDS: SODIUM CHLORIDE 0.9% FLUSH 10 ML FLUSH IV FLUSH SCH ×2 (08:53→22:59)
[2017-04-09] MEDS: DILTIAZEM HCL 30 MG TAB PO SCH ×4 (08:53→22:59)
[2017-04-09] MEDS: DOCUSATE SODIUM 100 MG CAP PO SCH ×2 (08:54→21:00)
[2017-04-09] MEDS: GENTAMICIN SULFATE 0.1% CREAM 15 GM TOPICAL SCH (08:54)
[2017-04-09] MEDS: COLLAGENASE OINT 30 GM TUBE TOPICAL SCH (08:54)
[2017-04-09] MEDS: CARVEDILOL 6.25 MG TAB PO SCH ×2 (08:57→22:59)
--- NOTE | 2017-04-09 10:15 | HHI.PR ---
Subjective Remarks Following patient with Respiratory failure CHF exacerbation, Mostly mumbling adaptive physical education specialist following, clinical specialist vascular, Psychiatry specialist consulted Objective Vital Signs Date Time Temp Pulse Resp B/P (MAP) Pulse Ox O2 Delivery O2 Flow Rate FiO2 04/09/17 08:51 93 High Flow Nasal Cannula 30.00 55 04/09/17 06:00 87 04/09/17 04:00 98.2 86 20 121/73 (89) 92 04/09/17 04:00 86 04/09/17 02:00 82 04/09/17 00:00 98.4 78 19 102/63 (76) 90 04/09/17 00:00 78 04/08/17 22:00 86 04/08/17 20:00 79 04/08/17 20:00 98.1 79 22 Automatic Cuff 92 Manual Cuff/Auscultation 04/08/17 19:20 91 High Flow Nasal Cannula 25.00 50 04/08/17 19:00 92 25.00 50 04/08/17 18:49 93 Regrader 25.00 50 04/08/17 18:22 4 High Flow Nasal Cannula 30.00 60 04/08/17 18:00 81 04/08/17 17:00 80 32 104/67 (79) 93 04/08/17 16:00 98.7 74 27 115/72 (86) 96 04/08/17 16:00 74 04/08/17 15:01 84 26 93/62 (72) 97 04/08/17 14:00 78 23 117/72 (87) 96 04/08/17 14:00 78 04/08/17 13:03 80 25 117/72 (87) 95 04/08/17 12:00 80 04/08/17 12:00 98.7 80 31 96/59 (71) 77 04/08/17 11:01 75 27 102/69 (80) 96 I/O 04/08/17 04/08/17 04/08/17 04/09/17 04/09/17 04/09/17 07:00 15:00 23:00 07:00 15:00 23:00 Intake Total 480 ml 1173 ml 407 ml Output Total 1300 ml 225 ml 1450 ml 1250 ml Balance -820 ml -225 ml -277 ml -843 ml Intake Oral 480 ml 350 ml 240 ml IV Total 823 ml 167 ml Output Urine Total 1300 ml 225 ml 1450 ml 1250 ml # Bowel Movements 0 2 Result Diagram: 04/09/17 0520 04/08/17 1456 Imaging Last Impressions Chest X-Ray 04/07/17 0000 Signed Impressions: Service Date/Time: Friday, April 07, 2017 09:44 - CONCLUSION: Worsening bilateral pulmonary infiltrates. Cardiomegaly. Luis Marmolejo Jr., MD CT Angiography 04/07/17 0000 Signed Impressions: Service Date/Time: Friday, April 07, 2017 17:51 - CONCLUSION: 1. Negative for pulmonary embolus. 2. Large bullous lesion at the right lung apex measuring at least 9 cm in diameter with a small amount of internal fluid and surrounding lung consolidation. Additional patchy airspace disease at both bases. Small bilateral pleural effusions. Moderate to severe centrilobular emphysema as well. 3. Severe coronary calcifications. 4. Mild hilar and mediastinal adenopathy. Raleigh Naranjo MD Tibia/Fibula X-Ray 04/05/17 0000 Signed Impressions: Service Date/Time: Wednesday, April 05, 2017 16:28 - CONCLUSION: Soft tissue swelling without fracture or periosteal reaction. Benton Hidalgo MD Myocardial Perfusion Scan Nuc Med 04/05/17 0000 Signed Impressions: Service Date/Time: Wednesday, April 05, 2017 14:29 - CONCLUSION: No appreciable ischemia. RISK CATEGORY: Low (<1%% Annual Mortality Rate) Anna Ratliff MD Lower Extremity Ultrasound 04/05/17 0000 Signed Impressions: Service Date/Time: Wednesday, April 05, 2017 10:30 - CONCLUSION: Bilateral DVT. Anna Ratliff MD Lower Extremity MRI 04/05/17 0000 Signed Impressions: Service Date/Time: Wednesday, April 05, 2017 16:42 - CONCLUSION: Edematous soft tissues of the left leg. No abscess or osteomyelitis. Benton Hidalgo MD Procedures None Other Results Laboratory Tests Test 04/03/17 09:00 04/03/17 10:15 04/07/17 15:25 04/08/17 04:33 Blood Urea Nitrogen 12 MG/DL Creatinine 1.15 MG/DL Random Glucose 81 MG/DL Total Protein 8.3 GM/DL Albumin 2.5 GM/DL Calcium Level 8.8 MG/DL Magnesium Level 1.9 MG/DL Alkaline Phosphatase 125 U/L Aspartate Amino Transf (AST/SGOT) 44 U/L Alanine Aminotransferase (ALT/SGPT) 27 U/L Total Bilirubin 0.9 MG/DL Sodium Level 136 MEQ/L Potassium Level 5.7 MEQ/L Chloride Level 102 MEQ/L Carbon Dioxide Level 25.9 MEQ/L Total Creatine Kinase 224 U/L Creatine Kinase MB 2.0 NG/ML Troponin I LESS THAN 0.02 NG/ML Thyroid Stimulating Hormone 3rd Gen 3.880 uIU/ML Urine Color YELLOW Urine Turbidity HAZY Urine pH 5.5 Urine Specific [place] 1.012 Urine Protein 30 mg/dL Urine Glucose (UA) NEG mg/dL Urine Ketones NEG mg/dL Urine Occult Blood MOD Urine Nitrite POS Urine Bilirubin NEG Urine Urobilinogen LESS THAN 2.0 MG/DL Urine Leukocyte Esterase LARGE Urine RBC 4 /hpf Urine WBC 67 /hpf Urine WBC Clumps FEW Urine Squamous Epithelial Cells 1 /hpf Urine Calcium Oxalate Crystals MOD /hpf Urine Bacteria MANY /hpf Urine Mucus FEW /lpf Microscopic Urinalysis Comment CULTURE INDICATED Nasal Screen MRSA (PCR) MRSA NOT DETECTED Neutrophils (%) (Auto) 58.0 % Lymphocytes (%) (Auto) 22.6 % Monocytes (%) (Auto) 12.6 % Eosinophils (%) (Auto) 5.5 % Basophils (%) (Auto) 1.3 % Neutrophils # (Auto) 3.1 TH/MM3 Lymphocytes # (Auto) 1.2 TH/MM3 Monocytes # (Auto) 0.7 TH/MM3 Eosinophils # (Auto) 0.3 TH/MM3 Basophils # (Auto) 0.1 TH/MM3 CBC Comment DIFF FINAL Differential Comment Test 04/08/17 14:56 04/09/17 05:20 Blood Urea Nitrogen 12 MG/DL Creatinine 0.77 MG/DL Random Glucose 111 MG/DL Calcium Level 8.6 MG/DL Sodium Level 136 MEQ/L Potassium Level 3.4 MEQ/L Chloride Level 97 MEQ/L Carbon Dioxide Level 32.7 MEQ/L Anion Gap 6 MEQ/L Estimat Glomerular Filtration Rate 120 ML/MIN White Blood Count 5.7 TH/MM3 Red Blood Count 4.82 MIL/MM3 Hemoglobin 14.3 GM/DL Hematocrit 42.2 % Mean Corpuscular Volume 87.5 FL Mean Corpuscular Hemoglobin 29.7 PG Mean Corpuscular Hemoglobin Concent 34.0 % Red Cell Distribution Width 15.9 % Platelet Count 245 TH/MM3 Mean Platelet Volume 8.0 FL Prothrombin Time 14.5 SEC Prothromb Time International Ratio 1.4 RATIO Activated Partial Thromboplast Time 59.4 SEC B-Type Natriuretic Peptide 2018 PG/ML Objective Remarks GENERAL: No acute distress a this time. CARDIOVASCULAR: Regular rate and irregular rhythm without murmurs, gallops, or rubs. RESPIRATORY: bilateral crackles GASTROINTESTINAL: Abdomen soft, non-tender, nondistended. Normal, active bowel sounds MUSCULOSKELETAL: Left lower extremity with 7 cm ulcer which has eschar tissue in it, right lower extremity with 10 cm ulcer which show granulation healing NEURO: mumbling awake, moves all extremities Medications and IVs Current Medications Medications (Trade) Dose Ordered Sig/Deacon Route Start Time Stop Time Status Last Admin (NS Flush) 2 ml UNSCH PRN IV FLUSH 04/03/17 11:00 (NS Flush) 2 ml BID IV FLUSH 04/03/17 21:00 04/09/17 08:53 (Tylenol) 650 mg Q4H PRN PO 04/03/17 11:00 (Cardizem) 30 mg QID PO 04/03/17 13:00 04/09/17 08:53 (Ecotrin Ec) 81 mg DAILY PO 04/03/17 13:00 04/09/17 08:52 Ceftriaxone Sodium 1000 mg/ Sodium Chloride 100 ml @ 200 mls/hr Q24H IV 04/04/17 15:00 04/08/17 13:54 Azithromycin 500 mg/Sodium Chloride 250 ml @ 250 mls/hr Q24H IV 04/04/17 14:00 04/08/17 13:54 (Coreg) 6.25 mg Q12HR PO 04/05/17 11:00 04/08/17 09:19 (Prinivil) 2.5 mg DAILY PO 04/06/17 09:00 04/09/17 08:52 Pharmacy Profile Note 0 ml @ 0 mls/hr UNSCH OTHER 04/05/17 10:30 (Lasix Inj) 40 mg BID@,18 IV PUSH 04/05/17 18:00 04/09/17 08:52 (Pill Splitter) 1 ea UNSCH PRN OTHER 04/05/17 11:00 (Ultram) 50 mg Q6H PRN PO 04/05/17 12:15 04/07/17 03:28 (Coumadin) 5 mg DAILY@1600 PO 04/05/17 16:00 04/08/17 16:59 Heparin Sodium/ Dextrose 250 ml @ 15 mls/hr TITRATE PRN IV 04/06/17 13:45 04/09/17 07:28 (Gentamicin 0.1% Cream) 1 applic DAILY TOPICAL 04/07/17 09:00 04/09/17 08:54 (Santyl Oint) 1 applic DAILY TOPICAL 04/07/17 09:00 04/09/17 08:54 (Colace) 100 mg BID PO 04/07/17 09:00 04/08/17 20:35 (Milk Of Brenda Ochoa) 30 ml Q6H PRN PO 04/07/17 01:30 04/07/17 09:04 Miscellaneous Information Patient in critical care unit? Ass... [id number] .XX 04/07/17 21:30 04/07/17 21:30 (Chlorhexidine 2% Cloth) 3 pack DAILY@04 TOPICAL 04/08/17 04:00 04/12/17 04:01 04/09/17 04:00 (Chlorhexidine 2% Cloth) 3 pack UNSCH PRN TOPICAL 04/07/17 21:30 04/12/17 21:20 (Coumadin) 1 mg ONCE@1600 ONCE PO 04/09/17 16:00 04/09/17 16:01 A/P Assessment and Plan Due to Chest X ray that showed right lobe and base airspace disease was started on Rocephin and Azithromycin, discussed with wound care about his Left leg necrotic wound, consulted podiatry specialist, 2D echocardiogram EF 15%, clinical specialist vascular following, Bilateral leg US with bilateral DVT, already on Warfarin started by Cardiology for Atrial Fibrillation, Heparin drip as per Podiatry specialist, on hold for I and D, Patient refused blood thinners, Palliative care and Psychiatry following, was transferred to Intensive Care Unit due to Respiratory failure, on non rebreather mask, Poor prognosis, new Echocardiogram showed EF 20 to 25%, on CTA Large Bullous lesions at the right lung apex measuring 9 cm in diameter with a small amount of internal fluid and surrounding lung consolidation, Additional patchy airspace disease at both bases, Small bilateral pleural effusions, Moderate to severe centrilobular emphysema as well, consulted lab specialist. Atrial fibrillation with RVR Bilateral DVT in lower extremity -CHADSVASC2 score 2 (age and CHF.). heparin and Warfarin. Community-acquired pneumonia showed on a chest x-ray, Minimal airspace disease in right midlung and right base continue Rocephin, Azithromycin, bronchodilator, Mucolytic, incentive spirometry , Pulmonary consult. CHF exacerbation -Chest x-ray shows minimal left airspace disease in the mid lung. BMP 1912. Patient also had lower extremity edema. -On oral Lasix. UTI with Escherichia coli/Klebsiella Sensitive to ceftriaxone Chronic lower extremity edema and wounds -Patient is noncompliant. Wound care following. Right mid and lower lobe pneumonia with respiratory failure -Combination of CHF and COPD. -Continue with oxygen. At home patients on 5 L. DVT prophylaxis Heparin and Warfarin. Discharge Planning Once cleared by Specialists. Nahun Yañez MD Apr 09, 2017 10:15
--- NOTE | 2017-04-09 12:15 | HHI.HCPN ---
Reason for visit a. To assist with evaluation and management of symptoms including: Shortness of breath, debility. b. To assist medical decision maker(s) with: better understanding of current medical conditions; weighing benefits/burdens of medical treatment options; making medical treatment decisions. . Subjective/Interval History Palliative care follow-up for further clarifications of goals of care. Patient seen in medical ICU. Previously on nonrebreather mask at 15 L, currently on high flow nasal cannula/correctional agency director at 30 L 55% FiO2. Patient alert and oriented x self, place and situation. irritable with interactions. Endorsing intermittent chest pain and bilateral lower extremity pain, unable to elaborate a complaint given irritability. Verbalized breathing "no better than when I first came in". Endorsing dyspnea at rest and on physical exertion. Pulmonology, Dr. Marin consulted 04/08/17 for evaluation and management of respiratory failure and COPD. As per Dr. Berrios, prognosis poor given multiple medical problems. No new imaging for review. Patient remains afebrile, stable hemodynamically. Attempted to readdressed goals of care with patient. Patient not receptive to conversation. Yelling "no,no,no". Attempted to readdress CODE STATUS and discuss risks, benefits and limitations of CPR, intubation and mechanical ventilation given increased oxygen requirement and CHF exacerbation. Patient covering his face with his blanket and yelling "stop asking me that st". Patient declined assistance with completion of advance directives. Palliative care has been in contact with patient's sister Clementine Barreto and cousin Kathie Cagle. Sister appears willing to participating in medical decision -making as proxy should the need arises. . Family/friend interactions See interval note. . Advance Directives Living Will: Never completed Health Care Surrogate: Never completed Durable Power of Director Of Land: Never completed Advance Directive Specifics Health Care Surrogate(s): No advance directives completed. Patient is single, no children. Parents are . Patient has 2 siblings. As per [place] statute, healthcare proxy decision maker falls to the majority of siblings who are reasonably available for consultation. . Significant change in goals: Goals remain aggressive. . Objective Vital Signs Date Time Temp Pulse Resp B/P (MAP) Pulse Ox O2 Delivery O2 Flow Rate FiO2 04/09/17 10:00 101 04/09/17 08:51 93 High Flow Nasal Cannula 30.00 55 04/09/17 08:00 98.1 85 25 111/73 (86) 98 04/09/17 08:00 85 04/09/17 07:00 95 Nasal Cannula 25.00 50 04/09/17 06:00 87 04/09/17 04:00 98.2 86 20 121/73 (89) 92 04/09/17 04:00 86 04/09/17 02:00 82 04/09/17 00:00 98.4 78 19 102/63 (76) 90 04/09/17 00:00 78 04/08/17 22:00 86 04/08/17 20:00 79 04/08/17 20:00 98.1 79 22 Automatic Cuff 92 Manual Cuff/Auscultation 04/08/17 19:20 91 High Flow Nasal Cannula 25.00 50 04/08/17 19:00 92 25.00 50 04/08/17 18:49 93 Ecd 25.00 50 04/08/17 18:22 4 High Flow Nasal Cannula 30.00 60 04/08/17 18:00 81 04/08/17 17:00 80 32 104/67 (79) 93 04/08/17 16:00 98.7 74 27 115/72 (86) 96 04/08/17 16:00 74 04/08/17 15:01 84 26 93/62 (72) 97 04/08/17 14:00 78 23 117/72 (87) 96 04/08/17 14:00 78 04/08/17 13:03 80 25 117/72 (87) 95 04/08/17 12:00 80 04/08/17 12:00 98.7 80 31 96/59 (71) 77 Intake & Output 04/09/17 04/09/17 07:00 19:00 Intake Total 407 ml Output Total 1250 ml Balance -843 ml Intake Oral 240 ml IV Total 167 ml Output Urine Total 1250 ml # Bowel Movements 2 Physical Exam CONSTITUTIONAL/GENERAL: This is an adequately nourished patient, in no apparent distress. Irritable. TUBES/LINES/DRAINS: PIV's, high flow nasal cannula. SKIN: No jaundice, rashes, Skin temperature appropriate. Not diaphoretic. Wounds reported to bilateral lower extremities, wrapped in Kerlix. Dressing dry , intact. HEAD: Atraumatic. Normocephalic. EYES: Pupils equal and round and reactive. Extraocular motions intact. No scleral icterus. No injection or drainage. ENT: Hearing grossly normal. Nose without bleeding or purulent drainage. Moist oral mucosa. Poor dentition. NECK: Trachea midline. Supple, nontender. CARDIOVASCULAR: Irregular rate and rhythm without murmurs. Bilateral lower extremity edema. RESPIRATORY/CHEST: Symmetric, even, unlabored. Scattered rhonchi bilaterally. GASTROINTESTINAL: Abdomen soft, large, round. No guarding. Bowel sounds present. Unable to appreciate hepatomegaly secondary to body habitus. GENITOURINARY: Without palpable bladder distension. MUSCULOSKELETAL: Extremities without clubbing, cyanosis. No mottling or clubbing. NEUROLOGICAL: Awake and alert. Verbal. Motor and sensory grossly within normal limits. Follows commands. Moves all extremities. PSYCHIATRIC: Irritable. . Diagnostic Tests Laboratory Laboratory Tests Test 04/06/17 17:23 04/07/17 00:37 04/07/17 07:40 04/07/17 07:46 White Blood Count 7.6 TH/MM3 (4.0-11.0) Red Blood Count 4.84 MIL/MM3 (4.50-5.90) Hemoglobin 14.4 GM/DL (13.0-17.0) Hematocrit 42.9 % (39.0-51.0) Mean Corpuscular Volume 88.6 FL (80.0-100.0) Mean Corpuscular Hemoglobin 29.7 PG (27.0-34.0) Mean Corpuscular Hemoglobin Concent 33.5 % (32.0-36.0) Red Cell Distribution Width 16.5 % (11.6-17.2) Platelet Count 237 TH/MM3 (150-450) Mean Platelet Volume 8.5 FL (7.0-11.0) Prothrombin Time 12.3 SEC (9.8-11.6) 13.9 SEC (9.8-11.6) Prothromb Time International Ratio 1.2 RATIO 1.4 RATIO Activated Partial Thromboplast Time 27.4 SEC (24.3-30.1) 65.0 SEC (24.3-30.1) 84.0 SEC (24.3-30.1) Blood Urea Nitrogen 12 MG/DL (7-18) 12 MG/DL (7-18) Creatinine 0.91 MG/DL (0.60-1.30) 0.69 MG/DL (0.60-1.30) Random Glucose 137 MG/DL (74-106) 95 MG/DL (74-106) Calcium Level 8.0 MG/DL (8.5-10.1) 8.2 MG/DL (8.5-10.1) Sodium Level 135 MEQ/L (136-145) 134 MEQ/L (136-145) Potassium Level 3.7 MEQ/L (3.5-5.1) 3.8 MEQ/L (3.5-5.1) Chloride Level 99 MEQ/L (98-107) 99 MEQ/L (98-107) Carbon Dioxide Level 29.1 MEQ/L (21.0-32.0) 27.0 MEQ/L (21.0-32.0) Anion Gap 7 MEQ/L (5-15) 8 MEQ/L (5-15) Estimat Glomerular Filtration Rate 99 ML/MIN (>89) 136 ML/MIN (>89) B-Type Natriuretic Peptide 2541 PG/ML (0-100) 2498 PG/ML (0-100) Test 04/07/17 15:25 04/07/17 17:08 04/07/17 22:30 04/08/17 04:33 Nasal Screen MRSA (PCR) MRSA NOT DETECTED (NOT White Blood Count 7.6 TH/MM3 (4.0-11.0) 5.4 TH/MM3 (4.0-11.0) Red Blood Count 5.23 MIL/MM3 (4.50-5.90) 4.60 MIL/MM3 (4.50-5.90) Hemoglobin 15.8 GM/DL (13.0-17.0) 13.8 GM/DL (13.0-17.0) Hematocrit 47.0 % (39.0-51.0) 40.7 % (39.0-51.0) Mean Corpuscular Volume 89.8 FL (80.0-100.0) 88.4 FL (80.0-100.0) Mean Corpuscular Hemoglobin 30.2 PG (27.0-34.0) 30.1 PG (27.0-34.0) Mean Corpuscular Hemoglobin Concent 33.6 % (32.0-36.0) 34.0 % (32.0-36.0) Red Cell Distribution Width 16.3 % (11.6-17.2) 16.1 % (11.6-17.2) Platelet Count 248 TH/MM3 (150-450) 241 TH/MM3 (150-450) Mean Platelet Volume 8.6 FL (7.0-11.0) 8.9 FL (7.0-11.0) Neutrophils (%) (Auto) 60.1 % (16.0-70.0) 58.0 % (16.0-70.0) Lymphocytes (%) (Auto) 21.0 % (9.0-44.0) 22.6 % (9.0-44.0) Monocytes (%) (Auto) 12.4 % (0.0-8.0) 12.6 % (0.0-8.0) Eosinophils (%) (Auto) 5.4 % (0.0-4.0) 5.5 % (0.0-4.0) Basophils (%) (Auto) 1.1 % (0.0-2.0) 1.3 % (0.0-2.0) Neutrophils # (Auto) 4.6 TH/MM3 (1.8-7.7) 3.1 TH/MM3 (1.8-7.7) Lymphocytes # (Auto) 1.6 TH/MM3 (1.0-4.8) 1.2 TH/MM3 (1.0-4.8) Monocytes # (Auto) 0.9 TH/MM3 (0-0.9) 0.7 TH/MM3 (0-0.9) Eosinophils # (Auto) 0.4 TH/MM3 (0-0.4) 0.3 TH/MM3 (0-0.4) Basophils # (Auto) 0.1 TH/MM3 (0-0.2) 0.1 TH/MM3 (0-0.2) CBC Comment DIFF FINAL DIFF FINAL Differential Comment Activated Partial Thromboplast Time 53.5 SEC (24.3-30.1) 58.5 SEC (24.3-30.1) 55.4 SEC (24.3-30.1) Prothrombin Time 14.6 SEC (9.8-11.6) Prothromb Time International Ratio 1.4 RATIO Test 04/08/17 14:56 04/09/17 05:20 Blood Urea Nitrogen 12 MG/DL (7-18) Creatinine 0.77 MG/DL (0.60-1.30) Random Glucose 111 MG/DL (74-106) Calcium Level 8.6 MG/DL (8.5-10.1) Sodium Level 136 MEQ/L (136-145) Potassium Level 3.4 MEQ/L (3.5-5.1) Chloride Level 97 MEQ/L (98-107) Carbon Dioxide Level 32.7 MEQ/L (21.0-32.0) Anion Gap 6 MEQ/L (5-15) Estimat Glomerular Filtration Rate 120 ML/MIN (>89) B-Type Natriuretic Peptide 2590 PG/ML (0-100) 2018 PG/ML (0-100) White Blood Count 5.7 TH/MM3 (4.0-11.0) Red Blood Count 4.82 MIL/MM3 (4.50-5.90) Hemoglobin 14.3 GM/DL (13.0-17.0) Hematocrit 42.2 % (39.0-51.0) Mean Corpuscular Volume 87.5 FL (80.0-100.0) Mean Corpuscular Hemoglobin 29.7 PG (27.0-34.0) Mean Corpuscular Hemoglobin Concent 34.0 % (32.0-36.0) Red Cell Distribution Width 15.9 % (11.6-17.2) Platelet Count 245 TH/MM3 (150-450) Mean Platelet Volume 8.0 FL (7.0-11.0) Prothrombin Time 14.5 SEC (9.8-11.6) Prothromb Time International Ratio 1.4 RATIO Activated Partial Thromboplast Time 59.4 SEC (24.3-30.1) Result Diagram: 04/09/17 0520 04/08/17 5546 Assessment and Plan Disease Oriented Problem List: (1) Respiratory failure (2) Atrial fibrillation (3) Leg ulcer, left (4) Ulcer of right leg (5) DVT (deep venous thrombosis) (6) PNA (pneumonia) (7) Acute exacerbation of CHF (congestive heart failure) (8) UTI (urinary tract infection) (9) Hyperkalemia Symptom Scale: (1) Dyspnea 0-10 Scale: Unable to quantify Comment: Currently on a nonrebreather mask at 15 L. High risk for intubation and mechanical ventilation. (2) Pain 0-10 Scale: Unable to quantify Comment: Multiple wounds to bilateral lower extremities. (3) Edema 0-10 Scale: Unable to quantify Comment: Bilateral lower extremities edema. Pertinent Non-Medical Issues Psychosocial: Patient is single. No children. [employer] , disabled secondary to PTSD. Patient was born and raised in [place]. Highest level of education is high school. Spiritual: No orthodoxy affiliation. Legal: No Advance directives completed. Ethical issues impacting care: No ethical issues identified. . Important Contacts Sister Clementine Barreto Brother Nolan Weinstein Cousin Kathie Saavedra . Prognosis Mr. Rocha is a 72-year-old male with a medical history significant for COPD, CHF, hypertension, hyperlipidemia, poor medication compliance. Patient presented to ED on 04/03/17 via EMS for evaluation of bilateral lower extremity edema and wounds. Patient admitted for further management of UTI, pneumonia, CHF exacerbation, A. fib with RVR. Clinical course complicated by respiratory failure, increased oxygen requirement. Patient with advanced cardiac disease, EF 15%. Patient's overall prognosis is poor for a prolong survival. He remains a high risk for further complications, continue decline and . High risk for intubation and mechanical ventilation. . Code Status: Full Code Plan * CODE STATUS: Full code. * HEALTHCARE DECISION-MAKING: Patient participating in medical decision-making, however, not very receptive to goals of care conversation with palliative care. Patient has been seen by psychiatry, deemed capacitated for medical decision- making. No advance directives completed. Patient is single, no children, parents are . As per [place] statute, healthcare proxy decision making falls to the majority of patient's siblings for which he has 2. Sister Clementine Barreto and brother Nolan Weinstein. (Brother Jacob Tipton previously listed as contact is now ). Patient declined assistance with completion of designation of healthcare surrogate. * GOALS OF CARE: Patient remains not receptive to goals of care conversation. Goals appear aggressive, he originally verbalized being okay with intubation and mechanical ventilation "if needed". 04/09/17 -attempted to readdress CODE STATUS and discuss risks, benefits and limitations of CPR, intubation and mechanical ventilation given increased oxygen requirement and CHF exacerbation. Patient covering his face with his blanket and yelling "stop asking me that s* t". Reviewed with patient that by default he continues as full code, patient said "ok then". Patient declined assistance with completion of advance directives. * SYMPTOMS: = Dyspnea: Secondary to CHF exacerbation, COPD. Bilateral lower extremity DVT, CTA negative for PE. Worsening respiratory status now requiring high flow nasal cannula/correctional agency director at 30 L 55% FiO2. High risk for intubation and mechanical ventilation. Pulmonology following. = Pain: Secondary to bilateral lower extremities wound/cellulitis. Tramadol available as needed. = Edema: Acute on chronic to bilateral lower extremities. Currently on Lasix twice a day. * Palliative care contact information has been provided to patient and family. * Palliative care will continue to follow-up as needed for further clarifications of goals of care patient's clinical course continues to evolve. . Time Spent Total Floor Time (mins): 23 (Total time to include review and summarization of medical records, physical exam, goals of care conversation with patient.) >50% Counseling/Coord of Care: Yes Attestation To help prompt me to consider important information that might be impacting today's encounter and assessment, information from prior notes written by myself or my colleagues may have been "brought forward" into today's note. My signature on this note, however, is an attestation that I personally performed the exam, history, and/or decision-making noted today, and, unless otherwise indicated, the interactions with patient, family, and staff as well as the review of records all occurred today. I also attest that the listed assessment and stated plan reflect my best clinical judgment today based on the combination of historical information, prior notes, and today's exam/ interactions. When time spent is documented, it refers only to time spent today by the signer, or if indicated, combined time spent today by collaborating physician/nurse practitioner. Areli Dunaway Apr 09, 2017 12:15
[2017-04-09] MEDS: AZITHROMYCIN INJ 500 MG in SODIUM CHLOR 0.9% 250 ML INJ 250 ML IV SCH (13:07)
--- NOTE | 2017-04-09 14:29 | PD.CARD.PN ---
Subjective Subjective Remarks No events overnight Patient states he's breathing well but on high-flow Objective Medications Current Medications Medications (Trade) Dose Ordered Sig/Deacon Route Start Time Stop Time Status Last Admin (NS Flush) 2 ml UNSCH PRN IV FLUSH 04/03/17 11:00 (NS Flush) 2 ml BID IV FLUSH 04/03/17 21:00 04/09/17 08:53 (Tylenol) 650 mg Q4H PRN PO 04/03/17 11:00 (Cardizem) 30 mg QID PO 04/03/17 13:00 04/09/17 12:47 (Ecotrin Ec) 81 mg DAILY PO 04/03/17 13:00 04/09/17 08:52 Ceftriaxone Sodium 1000 mg/ Sodium Chloride 100 ml @ 200 mls/hr Q24H IV 04/04/17 15:00 04/08/17 13:54 Azithromycin 500 mg/Sodium Chloride 250 ml @ 250 mls/hr Q24H IV 04/04/17 14:00 04/09/17 13:07 (Coreg) 6.25 mg Q12HR PO 04/05/17 11:00 04/08/17 09:19 (Prinivil) 2.5 mg DAILY PO 04/06/17 09:00 04/09/17 08:52 Pharmacy Profile Note 0 ml @ 0 mls/hr UNSCH OTHER 04/05/17 10:30 (Lasix Inj) 40 mg BID@09,18 IV PUSH 04/05/17 18:00 04/09/17 08:52 (Pill Splitter) 1 ea UNSCH PRN OTHER 04/05/17 11:00 (Ultram) 50 mg Q6H PRN PO 04/05/17 12:15 04/07/17 03:28 (Coumadin) 5 mg DAILY@1600 PO 04/05/17 16:00 04/08/17 16:59 Heparin Sodium/ Dextrose 250 ml @ 15 mls/hr TITRATE PRN IV 04/06/17 13:45 04/09/17 07:28 (Gentamicin 0.1% Cream) 1 applic DAILY TOPICAL 04/07/17 09:00 04/09/17 08:54 (Santyl Oint) 1 applic DAILY TOPICAL 04/07/17 09:00 04/09/17 08:54 (Colace) 100 mg BID PO 04/07/17 09:00 04/08/17 20:35 (Milk Of Magnesia Liq) 30 ml Q6H PRN PO 04/07/17 01:30 04/07/17 09:04 Miscellaneous Information Patient in critical care unit? Ass... [id number] .XX 04/07/17 21:30 04/07/17 21:30 (Chlorhexidine 2% Cloth) 3 pack DAILY@04 TOPICAL 04/08/17 04:00 04/12/17 04:01 04/09/17 04:00 (Chlorhexidine 2% Cloth) 3 pack UNSCH PRN TOPICAL 04/07/17 21:30 04/12/17 21:20 (Coumadin) 1 mg ONCE@1600 ONCE PO 04/09/17 16:00 04/09/17 16:01 Vital Signs / I&O Vital Signs Date Time Temp Pulse Resp B/P (MAP) Pulse Ox O2 Delivery O2 Flow Rate FiO2 04/09/17 14:00 100 04/09/17 12:00 90 04/09/17 12:00 98.2 90 22 119/68 (85) 92 04/09/17 10:00 101 04/09/17 08:51 93 High Flow Nasal Cannula 30.00 55 04/09/17 08:00 98.1 85 25 111/73 (86) 98 04/09/17 08:00 85 04/09/17 07:00 95 Nasal Cannula 25.00 50 04/09/17 06:00 87 04/09/17 04:00 98.2 86 20 121/73 (89) 92 04/09/17 04:00 86 04/09/17 02:00 82 04/09/17 00:00 98.4 78 19 102/63 (76) 90 04/09/17 00:00 78 04/08/17 22:00 86 04/08/17 20:00 79 04/08/17 20:00 98.1 79 22 Automatic Cuff 92 Manual Cuff/Auscultation 04/08/17 19:20 91 High Flow Nasal Cannula 25.00 50 04/08/17 19:00 92 25.00 50 04/08/17 18:49 93 Sustainability Communicator 25.00 50 04/08/17 18:22 4 High Flow Nasal Cannula 30.00 60 04/08/17 18:00 81 04/08/17 17:00 80 32 104/67 (79) 93 04/08/17 16:00 98.7 74 27 115/72 (86) 96 04/08/17 16:00 74 04/08/17 15:01 84 26 93/62 (72) 97 I/O 04/08/17 04/08/17 04/08/17 04/09/17 04/09/17 04/09/17 07:00 15:00 23:00 07:00 15:00 23:00 Intake Total 480 ml 1173 ml 407 ml Output Total 1300 ml 225 ml 1450 ml 1250 ml Balance -820 ml -225 ml -277 ml -843 ml Intake Oral 480 ml 350 ml 240 ml IV Total 823 ml 167 ml Output Urine Total 1300 ml 225 ml 1450 ml 1250 ml # Bowel Movements 0 2 Physical Exam GENERAL: NAD, AAOx3 SKIN: Warm and dry. HEAD: Atraumatic. Normocephalic. EYES: Pupils equal and round. No scleral icterus. No injection or drainage. ENT: No nasal bleeding or discharge. Mucous membranes pink and moist. NECK: Trachea midline. No JVD. CARDIOVASCULAR: Regular rate and rhythm. RESPIRATORY: No accessory muscle use. Decreased breath sounds bilaterally, mild crackles at the bases GASTROINTESTINAL: Abdomen soft, non-tender, nondistended. Hepatic and splenic margins not palpable. MUSCULOSKELETAL: Extremities with mild edema bilaterally NEUROLOGICAL: Awake and alert. No obvious cranial nerve deficits. Motor grossly within normal limits. Five out of 5 muscle strength in the arms and legs. Normal speech. PSYCHIATRIC: Appropriate mood and affect; insight and judgment normal. Laboratory Laboratory Tests Test 04/08/17 14:56 04/09/17 05:20 Blood Urea Nitrogen 12 MG/DL Creatinine 0.77 MG/DL Random Glucose 111 MG/DL Calcium Level 8.6 MG/DL Sodium Level 136 MEQ/L Potassium Level 3.4 MEQ/L Chloride Level 97 MEQ/L Carbon Dioxide Level 32.7 MEQ/L Anion Gap 6 MEQ/L Estimat Glomerular Filtration Rate 120 ML/MIN B-Type Natriuretic Peptide 2590 PG/ML 2018 PG/ML White Blood Count 5.7 TH/MM3 Red Blood Count 4.82 MIL/MM3 Hemoglobin 14.3 GM/DL Hematocrit 42.2 % Mean Corpuscular Volume 87.5 FL Mean Corpuscular Hemoglobin 29.7 PG Mean Corpuscular Hemoglobin Concent 34.0 % Red Cell Distribution Width 15.9 % Platelet Count 245 TH/MM3 Mean Platelet Volume 8.0 FL Prothrombin Time 14.5 SEC Prothromb Time International Ratio 1.4 RATIO Activated Partial Thromboplast Time 59.4 SEC Assessment and Plan Problem List: (1) Atrial fibrillation ICD Codes: I48.91 - Unspecified atrial fibrillation (2) Acute exacerbation of CHF (congestive heart failure) ICD Codes: I50.9 - Heart failure, unspecified Status: Acute (3) DVT (deep venous thrombosis) ICD Codes: I82.409 - Acute embolism and thrombosis of unspecified deep veins of unspecified lower extremity Status: Acute (4) Dyspnea ICD Codes: R06.00 - Dyspnea, unspecified (5) Edema ICD Codes: R60.9 - Edema, unspecified (6) Respiratory failure ICD Codes: J96.90 - Respiratory failure, unspecified, unspecified whether with hypoxia or hypercapnia Assessment and Plan 1) CHF Nuclear stress test negative EF 20-25% by echo with global dyskinesia Con't diuresis ASA/Coreg/Lisinopril 2) B/L LE DVT Heparin/Coumadin per primary team 3) Afib On anticoagulation for DVT 4) Increased oxygen demand even though he's diuresing >1L a day and weight decreasing Agree with pulmonary consultation Problem Qualifiers (1) Acute exacerbation of CHF (congestive heart failure): Qualified Codes: I50.9 - Heart failure, unspecified (2) DVT (deep venous thrombosis): Merrick Delgado DO Apr 09, 2017 14:29
[2017-04-09] MEDS: WARFARIN SOD 5 MG TAB PO SCH (15:05)
[2017-04-09] MEDS: cefTRIAXone INJ 1,000 MG in SODIUM CHLORIDE 0.9% INJ 100 ML IV SCH (15:05)
[2017-04-09] MEDS ORDERED: WARFARIN SOD 1 MG TAB PO ONE (16:00)
[2017-04-10] VITALS (14 sets, daily range): BP systolic 101–135; BP diastolic 62–87; PULSE 79–93; RESP 20–33; TEMP 97.6–99.4; O2SAT 89–95
[2017-04-10] MEDS: CHLORHEXIDINE GLUCONATE 2 % 1 PACK (2 CLOTHS)(taper/protocol) TOPICAL SCH (04:00)
[2017-04-10] MEDS: HEPARIN-D5W 25,000 U/250 ML 250 ML IV PRN (05:19)
[2017-04-10 05:20] LABS: INTERNATIONAL NORMALIZED RATIO 1.5 RATIO; PROTHROMBIN TIME - PATIENT 15.4 SEC (9.8-11.6)
[2017-04-10] MEDS: LISINOPRIL 5 MG TAB PO SCH (08:27)
[2017-04-10] MEDS: DOCUSATE SODIUM 100 MG CAP PO SCH ×2 (08:27→22:21)
[2017-04-10] MEDS: CARVEDILOL 6.25 MG TAB PO SCH ×2 (08:28→22:21)
[2017-04-10] MEDS: DILTIAZEM HCL 30 MG TAB PO SCH ×4 (08:28→22:22)
[2017-04-10] MEDS: ASPIRIN EC 81 MG TABEC PO SCH (08:28)
[2017-04-10] MEDS: FUROSEMIDE 40 MG/4 ML VIAL IV PUSH SCH ×2 (08:29→18:07)
[2017-04-10] MEDS: SODIUM CHLORIDE 0.9% FLUSH 10 ML FLUSH IV FLUSH SCH (08:29)
[2017-04-10] MEDS: COLLAGENASE OINT 30 GM TUBE TOPICAL SCH (08:30)
[2017-04-10] MEDS: GENTAMICIN SULFATE 0.1% CREAM 15 GM TOPICAL SCH (08:30)
[2017-04-10] MEDS: AZITHROMYCIN INJ 500 MG in SODIUM CHLOR 0.9% 250 ML INJ 250 ML IV SCH (13:22)
--- NOTE | 2017-04-10 13:45 | PD.CARD.PN ---
Subjective Subjective Remarks No events overnight Patient states he's breathing well but on high-flow Objective Medications Current Medications Medications (Trade) Dose Ordered Sig/Deacon Route Start Time Stop Time Status Last Admin (NS Flush) 2 ml UNSCH PRN IV FLUSH 04/03/17 11:00 (NS Flush) 2 ml BID IV FLUSH 04/03/17 21:00 04/10/17 08:29 (Tylenol) 650 mg Q4H PRN PO 04/03/17 11:00 (Cardizem) 30 mg QID PO 04/03/17 13:00 04/10/17 08:28 (Ecotrin Ec) 81 mg DAILY PO 04/03/17 13:00 04/10/17 08:28 Ceftriaxone Sodium 1000 mg/ Sodium Chloride 100 ml @ 200 mls/hr Q24H IV 04/04/17 15:00 04/09/17 15:05 Azithromycin 500 mg/Sodium Chloride 250 ml @ 250 mls/hr Q24H IV 04/04/17 14:00 04/09/17 13:07 (Coreg) 6.25 mg Q12HR PO 04/05/17 11:00 04/10/17 08:28 (Prinivil) 2.5 mg DAILY PO 04/06/17 09:00 04/10/17 08:27 Pharmacy Profile Note 0 ml @ 0 mls/hr UNSCH OTHER 04/05/17 10:30 (Lasix Inj) 40 mg BID@09,18 IV PUSH 04/05/17 18:00 04/10/17 08:29 (Pill Splitter) 1 ea UNSCH PRN OTHER 04/05/17 11:00 (Ultram) 50 mg Q6H PRN PO 04/05/17 12:15 04/07/17 03:28 (Coumadin) 5 mg DAILY@1600 PO 04/05/17 16:00 04/09/17 15:05 Heparin Sodium/ Dextrose 250 ml @ 15 mls/hr TITRATE PRN IV 04/06/17 13:45 04/10/17 05:19 (Gentamicin 0.1% Cream) 1 applic DAILY TOPICAL 04/07/17 09:00 04/10/17 08:30 (Santyl Oint) 1 applic DAILY TOPICAL 04/07/17 09:00 04/10/17 08:30 (Colace) 100 mg BID PO 04/07/17 09:00 04/10/17 08:27 (Milk Of Magnesia Liq) 30 ml Q6H PRN PO 04/07/17 01:30 04/07/17 09:04 Miscellaneous Information Patient in critical care unit? Ass... Q361D .XX 04/07/17 21:30 04/07/17 21:30 (Chlorhexidine 2% Cloth) 3 pack DAILY@04 TOPICAL 04/08/17 04:00 04/12/17 04:01 04/09/17 04:00 (Chlorhexidine 2% Cloth) 3 pack UNSCH PRN TOPICAL 04/07/17 21:30 04/12/17 21:20 (Coumadin) 2 mg ONCE@1600 ONCE PO 04/10/17 16:00 04/10/17 16:01 Vital Signs / I&O Vital Signs Date Time Temp Pulse Resp B/P (MAP) Pulse Ox O2 Delivery O2 Flow Rate FiO2 04/10/17 10:00 83 04/10/17 08:00 88 04/10/17 08:00 97.7 88 33 135/87 (103) 91 04/10/17 07:00 94 Nasal Cannula 25.00 50 04/10/17 06:00 81 04/10/17 04:00 98.9 80 20 113/70 (84) 95 04/10/17 04:00 80 04/10/17 02:00 81 04/10/17 00:00 81 04/10/17 00:00 81 04/10/17 00:00 99.4 81 20 110/72 (85) 89 04/09/17 22:01 94 High Flow Nasal Cannula 25.00 55 04/09/17 22:00 89 04/09/17 20:00 94 Nasal Cannula 2.00 04/09/17 20:00 98.2 91 24 113/72 (86) 93 04/09/17 20:00 91 04/09/17 18:00 83 04/09/17 16:00 98.4 90 38 99/69 (79) 96 04/09/17 16:00 90 04/09/17 14:00 100 I/O 04/09/17 04/09/17 04/09/17 04/10/17 04/10/17 04/10/17 07:00 15:00 23:00 07:00 15:00 23:00 Intake Total 407 ml 250 ml 498 ml 470 ml Output Total 1250 ml 1350 ml 1600 ml Balance -843 ml 250 ml -852 ml -1130 ml Intake Oral 240 ml 240 ml 150 ml IV Total 167 ml 250 ml 258 ml 320 ml Output Urine Total 1250 ml 1350 ml 1600 ml # Bowel Movements 2 0 Physical Exam GENERAL: NAD, AAOx3 SKIN: Warm and dry. HEAD: Atraumatic. Normocephalic. EYES: Pupils equal and round. No scleral icterus. No injection or drainage. ENT: No nasal bleeding or discharge. Mucous membranes pink and moist. NECK: Trachea midline. No JVD. CARDIOVASCULAR: Regular rate and rhythm. RESPIRATORY: No accessory muscle use. Decreased breath sounds bilaterally, mild crackles at the bases GASTROINTESTINAL: Abdomen soft, non-tender, nondistended. Hepatic and splenic margins not palpable. MUSCULOSKELETAL: Extremities with mild edema bilaterally NEUROLOGICAL: Awake and alert. No obvious cranial nerve deficits. Motor grossly within normal limits. Five out of 5 muscle strength in the arms and legs. Normal speech. PSYCHIATRIC: Appropriate mood and affect; insight and judgment normal. Laboratory Laboratory Tests Test 04/10/17 03:31 Prothrombin Time 15.4 SEC Prothromb Time International Ratio 1.5 RATIO Activated Partial Thromboplast Time 57.4 SEC Assessment and Plan Problem List: (1) Atrial fibrillation ICD Codes: I48.91 - Unspecified atrial fibrillation (2) Acute exacerbation of CHF (congestive heart failure) ICD Codes: I50.9 - Heart failure, unspecified Status: Acute (3) DVT (deep venous thrombosis) ICD Codes: I82.409 - Acute embolism and thrombosis of unspecified deep veins of unspecified lower extremity Status: Acute (4) Dyspnea ICD Codes: R06.00 - Dyspnea, unspecified (5) Edema ICD Codes: R60.9 - Edema, unspecified (6) Respiratory failure ICD Codes: J96.90 - Respiratory failure, unspecified, unspecified whether with hypoxia or hypercapnia Assessment and Plan 1) CHF Nuclear stress test negative EF 20-25% by echo with global dyskinesia Con't diuresis ASA/Coreg/Lisinopril 2) B/L LE DVT Heparin/Coumadin per primary team 3) Afib On anticoagulation for DVT 4) Increased oxygen demand even though he's diuresing >1L a day and weight decreasing Agree with pulmonary consultation Asked nurse to place PT eval and to get him up to the chair as he cramped in the bed, most likely not helping his breathing Problem Qualifiers (1) Acute exacerbation of CHF (congestive heart failure): Qualified Codes: I50.9 - Heart failure, unspecified (2) DVT (deep venous thrombosis): Merrick Delgado DO Apr 10, 2017 13:45
--- NOTE | 2017-04-10 15:23 | HHI.PR ---
Subjective Remarks Following patient with Respiratory failure CHF exacerbation, Mostly mumbling air pollution specialist following, disease intervention specialist, Psychiatry specialist consulted 04/10: Seen in his bedroom, stable disease intervention specialist following recommended to continue diuresis mortgage specialist following, with Diagnosis of Acute on chronic respiratory failure, CHF, COPD, Atrial Fibrillation, recommended to continue oxygen, Bronchodilators, high flow oxygen by nasal cannula no nausea, vomit or diarrhea. Objective Vital Signs Date Time Temp Pulse Resp B/P (MAP) Pulse Ox O2 Delivery O2 Flow Rate FiO2 04/10/17 14:00 82 04/10/17 12:00 79 04/10/17 12:00 97.6 79 28 101/62 (75) 93 04/10/17 10:00 83 04/10/17 08:00 88 04/10/17 08:00 97.7 88 33 135/87 (103) 91 04/10/17 07:00 94 Nasal Cannula 25.00 50 04/10/17 06:00 81 04/10/17 04:00 98.9 80 20 113/70 (84) 95 04/10/17 04:00 80 04/10/17 02:00 81 04/10/17 00:00 81 04/10/17 00:00 81 04/10/17 00:00 99.4 81 20 110/72 (85) 89 04/09/17 22:01 94 High Flow Nasal Cannula 25.00 55 04/09/17 22:00 89 04/09/17 20:00 94 Nasal Cannula 2.00 04/09/17 20:00 98.2 91 24 113/72 (86) 93 04/09/17 20:00 91 04/09/17 18:00 83 04/09/17 16:00 98.4 90 38 99/69 (79) 96 04/09/17 16:00 90 I/O 04/09/17 04/09/17 04/09/17 04/10/17 04/10/17 04/10/17 07:00 15:00 23:00 07:00 15:00 23:00 Intake Total 407 ml 250 ml 498 ml 470 ml Output Total 1250 ml 1350 ml 1600 ml Balance -843 ml 250 ml -852 ml -1130 ml Intake Oral 240 ml 240 ml 150 ml IV Total 167 ml 250 ml 258 ml 320 ml Output Urine Total 1250 ml 1350 ml 1600 ml # Bowel Movements 2 0 Result Diagram: 04/09/17 0520 04/08/17 1456 Imaging Last Impressions Chest X-Ray 04/07/17 0000 Signed Impressions: Service Date/Time: Friday, April 07, 2017 09:44 - CONCLUSION: Worsening bilateral pulmonary infiltrates. Cardiomegaly. Luis Marmolejo Jr., MD CT Angiography 04/07/17 0000 Signed Impressions: Service Date/Time: Friday, April 07, 2017 17:51 - CONCLUSION: 1. Negative for pulmonary embolus. 2. Large bullous lesion at the right lung apex measuring at least 9 cm in diameter with a small amount of internal fluid and surrounding lung consolidation. Additional patchy airspace disease at both bases. Small bilateral pleural effusions. Moderate to severe centrilobular emphysema as well. 3. Severe coronary calcifications. 4. Mild hilar and mediastinal adenopathy. Raleigh Naranjo MD Tibia/Fibula X-Ray 04/05/17 0000 Signed Impressions: Service Date/Time: Wednesday, April 05, 2017 16:28 - CONCLUSION: Soft tissue swelling without fracture or periosteal reaction. Benton Hidalgo MD Myocardial Perfusion Scan Nuc Med 04/05/17 0000 Signed Impressions: Service Date/Time: Wednesday, April 05, 2017 14:29 - CONCLUSION: No appreciable ischemia. RISK CATEGORY: Low (<1%% Annual Mortality Rate) Anna Ratliff MD Lower Extremity Ultrasound 04/05/17 0000 Signed Impressions: Service Date/Time: Wednesday, April 05, 2017 10:30 - CONCLUSION: Bilateral DVT. Anna Ratliff MD Lower Extremity MRI 04/05/17 0000 Signed Impressions: Service Date/Time: Wednesday, April 05, 2017 16:42 - CONCLUSION: Edematous soft tissues of the left leg. No abscess or osteomyelitis. Benton Hidalgo MD Procedures None Other Results Laboratory Tests Test 04/03/17 09:00 04/03/17 10:15 04/07/17 15:25 04/08/17 04:33 Blood Urea Nitrogen 12 MG/DL Creatinine 1.15 MG/DL Random Glucose 81 MG/DL Total Protein 8.3 GM/DL Albumin 2.5 GM/DL Calcium Level 8.8 MG/DL Magnesium Level 1.9 MG/DL Alkaline Phosphatase 125 U/L Aspartate Amino Transf (AST/SGOT) 44 U/L Alanine Aminotransferase (ALT/SGPT) 27 U/L Total Bilirubin 0.9 MG/DL Sodium Level 136 MEQ/L Potassium Level 5.7 MEQ/L Chloride Level 102 MEQ/L Carbon Dioxide Level 25.9 MEQ/L Total Creatine Kinase 224 U/L Creatine Kinase MB 2.0 NG/ML Troponin I LESS THAN 0.02 NG/ML Thyroid Stimulating Hormone 3rd Gen 3.880 uIU/ML Urine Color YELLOW Urine Turbidity HAZY Urine pH 5.5 Urine Specific [place] 1.012 Urine Protein 30 mg/dL Urine Glucose (UA) NEG mg/dL Urine Ketones NEG mg/dL Urine Occult Blood MOD Urine Nitrite POS Urine Bilirubin NEG Urine Urobilinogen LESS THAN 2.0 MG/DL Urine Leukocyte Esterase LARGE Urine RBC 4 /hpf Urine WBC 67 /hpf Urine WBC Clumps FEW Urine Squamous Epithelial Cells 1 /hpf Urine Calcium Oxalate Crystals MOD /hpf Urine Bacteria MANY /hpf Urine Mucus FEW /lpf Microscopic Urinalysis Comment CULTURE INDICATED Nasal Screen MRSA (PCR) MRSA NOT DETECTED Neutrophils (%) (Auto) 58.0 % Lymphocytes (%) (Auto) 22.6 % Monocytes (%) (Auto) 12.6 % Eosinophils (%) (Auto) 5.5 % Basophils (%) (Auto) 1.3 % Neutrophils # (Auto) 3.1 TH/MM3 Lymphocytes # (Auto) 1.2 TH/MM3 Monocytes # (Auto) 0.7 TH/MM3 Eosinophils # (Auto) 0.3 TH/MM3 Basophils # (Auto) 0.1 TH/MM3 CBC Comment DIFF FINAL Differential Comment Test 04/08/17 14:56 04/09/17 05:20 04/10/17 03:31 Blood Urea Nitrogen 12 MG/DL Creatinine 0.77 MG/DL Random Glucose 111 MG/DL Calcium Level 8.6 MG/DL Sodium Level 136 MEQ/L Potassium Level 3.4 MEQ/L Chloride Level 97 MEQ/L Carbon Dioxide Level 32.7 MEQ/L Anion Gap 6 MEQ/L Estimat Glomerular Filtration Rate 120 ML/MIN White Blood Count 5.7 TH/MM3 Red Blood Count 4.82 MIL/MM3 Hemoglobin 14.3 GM/DL Hematocrit 42.2 % Mean Corpuscular Volume 87.5 FL Mean Corpuscular Hemoglobin 29.7 PG Mean Corpuscular Hemoglobin Concent 34.0 % Red Cell Distribution Width 15.9 % Platelet Count 245 TH/MM3 Mean Platelet Volume 8.0 FL B-Type Natriuretic Peptide 2018 PG/ML Prothrombin Time 15.4 SEC Prothromb Time International Ratio 1.5 RATIO Activated Partial Thromboplast Time 57.4 SEC Objective Remarks GENERAL: No acute distress a this time. CARDIOVASCULAR: Regular rate and irregular rhythm without murmurs, gallops, or rubs. RESPIRATORY: bilateral crackles GASTROINTESTINAL: Abdomen soft, non-tender, nondistended. Normal, active bowel sounds MUSCULOSKELETAL: Left lower extremity with 7 cm ulcer which has eschar tissue in it, right lower extremity with 10 cm ulcer which show granulation healing NEURO: mumbling awake, moves all extremities Medications and IVs Current Medications Medications (Trade) Dose Ordered Sig/Deacon Route Start Time Stop Time Status Last Admin (NS Flush) 2 ml UNSCH PRN IV FLUSH 04/03/17 11:00 (NS Flush) 2 ml BID IV FLUSH 04/03/17 21:00 04/10/17 08:29 (Tylenol) 650 mg Q4H PRN PO 04/03/17 11:00 (Cardizem) 30 mg QID PO 04/03/17 13:00 04/10/17 13:21 (Ecotrin Ec) 81 mg DAILY PO 04/03/17 13:00 04/10/17 08:28 Ceftriaxone Sodium 1000 mg/ Sodium Chloride 100 ml @ 200 mls/hr Q24H IV 04/04/17 15:00 04/09/17 15:05 Azithromycin 500 mg/Sodium Chloride 250 ml @ 250 mls/hr Q24H IV 04/04/17 14:00 04/10/17 13:22 (Coreg) 6.25 mg Q12HR PO 04/05/17 11:00 04/10/17 08:28 (Prinivil) 2.5 mg DAILY PO 04/06/17 09:00 04/10/17 08:27 Pharmacy Profile Note 0 ml @ 0 mls/hr UNSCH OTHER 04/05/17 10:30 (Lasix Inj) 40 mg BID@,18 IV PUSH 04/05/17 18:00 04/10/17 08:29 (Pill Splitter) 1 ea UNSCH PRN OTHER 04/05/17 11:00 (Ultram) 50 mg Q6H PRN PO 04/05/17 12:15 04/07/17 03:28 (Coumadin) 5 mg DAILY@1600 PO 04/05/17 16:00 04/09/17 15:05 Heparin Sodium/ Dextrose 250 ml @ 15 mls/hr TITRATE PRN IV 04/06/17 13:45 04/10/17 05:19 (Gentamicin 0.1% Cream) 1 applic DAILY TOPICAL 04/07/17 09:00 04/10/17 08:30 (Santyl Oint) 1 applic DAILY TOPICAL 04/07/17 09:00 04/10/17 08:30 (Colace) 100 mg BID PO 04/07/17 09:00 04/10/17 08:27 (Milk Of Magnalba Liq) 30 ml Q6H PRN PO 04/07/17 01:30 04/07/17 09:04 Miscellaneous Information Patient in critical care unit? Ass... Q361D .XX 04/07/17 21:30 04/07/17 21:30 (Chlorhexidine 2% Cloth) 3 pack DAILY@04 TOPICAL 04/08/17 04:00 04/12/17 04:01 04/09/17 04:00 (Chlorhexidine 2% Cloth) 3 pack UNSCH PRN TOPICAL 04/07/17 21:30 04/12/17 21:20 (Coumadin) 2 mg ONCE@1600 ONCE PO 04/10/17 16:00 04/10/17 16:01 A/P Assessment and Plan Due to Chest X ray that showed right lobe and base airspace disease was started on Rocephin and Azithromycin, discussed with wound care about his Left leg necrotic wound, consulted podiatry specialist, 2D echocardiogram EF 15%, disease intervention specialist following, Bilateral leg US with bilateral DVT, already on Warfarin started by Cardiology for Atrial Fibrillation, Heparin drip as per Podiatry specialist, on hold for I and D, Patient refused blood thinners, Palliative care and Psychiatry following, was transferred to Intensive Care Unit due to Respiratory failure, on non rebreather mask, Poor prognosis, new Echocardiogram showed EF 20 to 25%, on CTA Large Bullous lesions at the right lung apex measuring 9 cm in diameter with a small amount of internal fluid and surrounding lung consolidation, Additional patchy airspace disease at both bases, Small bilateral pleural effusions, Moderate to severe centrilobular emphysema as well, consulted mortgage specialist. Atrial fibrillation with RVR Bilateral DVT in lower extremity -CHADSVASC2 score 2 (age and CHF.). heparin and Warfarin. INR 1.5 Community-acquired pneumonia showed on a chest x-ray, Minimal airspace disease in right midlung and right base continue Rocephin, Azithromycin, bronchodilator, Mucolytic, incentive spirometry , Pulmonary following recommended high flow oxygen through nasal cannula. CHF exacerbation -Chest x-ray shows minimal left airspace disease in the mid lung. BMP 1912. Patient also had lower extremity edema. -Lasix 40 mg IV BID. UTI with Escherichia coli/Klebsiella Sensitive to ceftriaxone Chronic lower extremity edema and wounds -Patient is noncompliant. Wound care following. Right mid and lower lobe pneumonia with respiratory failure -Combination of CHF and COPD. -Continue with oxygen high flow. DVT prophylaxis Heparin and Warfarin. Discharge Planning Once cleared by Specialists. Nahun Yañez MD Apr 10, 2017 15:23
[2017-04-10] MEDS: cefTRIAXone INJ 1,000 MG in SODIUM CHLORIDE 0.9% INJ 100 ML IV SCH (15:49)
[2017-04-10] MEDS: WARFARIN SOD 5 MG TAB PO SCH (15:49)
[2017-04-10] MEDS ORDERED: WARFARIN SOD 2 MG TAB PO ONE (16:00)
--- NOTE | 2017-04-10 17:07 | HHI.PR ---
Subjective Remarks LETHARGIC NO SOB O2 SAT 94% ON O2 Objective Vital Signs Date Time Temp Pulse Resp B/P (MAP) Pulse Ox O2 Delivery O2 Flow Rate FiO2 04/10/17 16:00 88 04/10/17 14:00 82 04/10/17 12:00 79 04/10/17 12:00 97.6 79 28 101/62 (75) 93 04/10/17 10:00 83 04/10/17 08:00 88 04/10/17 08:00 97.7 88 33 135/87 (103) 91 04/10/17 07:00 94 Nasal Cannula 25.00 50 04/10/17 06:00 81 04/10/17 04:00 98.9 80 20 113/70 (84) 95 04/10/17 04:00 80 04/10/17 02:00 81 04/10/17 00:00 81 04/10/17 00:00 81 04/10/17 00:00 99.4 81 20 110/72 (85) 89 04/09/17 22:01 94 High Flow Nasal Cannula 25.00 55 04/09/17 22:00 89 04/09/17 20:00 94 Nasal Cannula 2.00 04/09/17 20:00 98.2 91 24 113/72 (86) 93 04/09/17 20:00 91 04/09/17 18:00 83 I/O 04/09/17 04/09/17 04/09/17 04/10/17 04/10/17 04/10/17 07:00 15:00 23:00 07:00 15:00 23:00 Intake Total 407 ml 250 ml 498 ml 470 ml Output Total 1250 ml 1350 ml 1600 ml Balance -843 ml 250 ml -852 ml -1130 ml Intake Oral 240 ml 240 ml 150 ml IV Total 167 ml 250 ml 258 ml 320 ml Output Urine Total 1250 ml 1350 ml 1600 ml # Bowel Movements 2 0 Result Diagram: 04/09/17 0520 04/08/17 1456 Procedures None Objective Remarks GENERAL: SKIN: Warm and dry. HEAD: Atraumatic. Normocephalic. EYES: Pupils equal and round. No scleral icterus. No injection or drainage. ENT: No nasal bleeding or discharge. Mucous membranes pink and moist. NECK: Trachea midline. No JVD. CARDIOVASCULAR: Regular rate and rhythm. RESPIRATORY: No accessory muscle use. Clear to auscultation. Breath sounds equal bilaterally. GASTROINTESTINAL: Abdomen soft, non-tender, nondistended. Hepatic and splenic margins not palpable. MUSCULOSKELETAL: Extremities without clubbing, cyanosis, or edema. No obvious deformities. NEUROLOGICAL: Awake and alert. No obvious cranial nerve deficits. Motor grossly within normal limits. Five out of 5 muscle strength in the arms and legs. Normal speech. PSYCHIATRIC: Appropriate mood and affect; insight and judgment normal. Assessment and Plan Assessment and Plan RESPIRATORY FAILURE PNA CHF DVT PLAN O2 NEEDED ANTIBX F/U CXRAY Tania Marin MD Apr 10, 2017 17:07
[2017-04-10] MEDS: MAGNESIUM HYDROXIDE SUSP 30 ML CUP PO PRN (22:22)
[2017-04-11] VITALS (21 sets, daily range): BP systolic 99–142; BP diastolic 62–84; PULSE 71–95; RESP 19–46; TEMP 98.4–99; O2SAT 90–96
[2017-04-11] MEDS: HEPARIN-D5W 25,000 U/250 ML 250 ML IV PRN (01:39)
[2017-04-11] MEDS: CHLORHEXIDINE GLUCONATE 2 % 1 PACK (2 CLOTHS)(taper/protocol) TOPICAL SCH (04:00)
[2017-04-11 07:09] LABS: PROTHROMBIN TIME - PATIENT 20.6 SEC (9.8-11.6)
--- NOTE | 2017-04-11 07:52 | HHI.PR ---
Subjective Remarks Following patient with Respiratory failure CHF exacerbation, Mostly mumbling surgical specialist following, pulmonary specialist, Psychiatry specialist consulted 04/10: Seen in his bedroom, stable pulmonary specialist following recommended to continue diuresis cardiac rehabilitation specialist following, with Diagnosis of Acute on chronic respiratory failure, CHF, COPD, Atrial Fibrillation, recommended to continue oxygen, Bronchodilators, high flow oxygen by nasal cannula 04/11: Patient discussed with nurse, no changes in his condition, as per Cardiology to continue diuresis Aspirin, Coreg and Lisinopril, PT eval asked by Cardiology, no nausea, vomit or diarrhea. Objective Vital Signs Date Time Temp Pulse Resp B/P (MAP) Pulse Ox O2 Delivery O2 Flow Rate FiO2 04/11/17 07:33 99.0 04/11/17 06:41 83 04/11/17 04:00 98.9 71 22 124/77 (93) 92 04/11/17 04:00 83 04/11/17 02:00 85 04/11/17 00:00 86 04/11/17 00:00 98.4 84 24 142/81 (101) 92 04/10/17 22:00 80 04/10/17 20:00 79 04/10/17 20:00 98.8 84 24 117/72 (87) 94 04/10/17 20:00 Nasal Cannula 20.00 55 04/10/17 19:15 93 High Flow Nasal Cannula 20.00 55 04/10/17 18:06 95 High Flow Nasal Cannula 25.00 50 04/10/17 18:00 93 04/10/17 16:00 98.0 88 22 101/65 (77) 92 04/10/17 16:00 88 04/10/17 14:00 82 04/10/17 12:00 79 04/10/17 12:00 97.6 79 28 101/62 (75) 93 04/10/17 10:00 83 04/10/17 08:00 88 04/10/17 08:00 97.7 88 33 135/87 (103) 91 I/O 04/10/17 04/10/17 04/10/17 04/11/17 04/11/17 04/11/17 07:00 15:00 23:00 07:00 15:00 23:00 Intake Total 470 ml 250 ml 554 ml 380 ml Output Total 1600 ml 2300 ml 1200 ml 150 ml Balance -1130 ml 250 ml -1746 ml -820 ml -150 ml Intake Oral 150 ml 300 ml 100 ml IV Total 320 ml 250 ml 254 ml 280 ml Output Urine Total 1600 ml 2300 ml 1200 ml 150 ml # Bowel Movements 1 Result Diagram: 04/09/17 0520 04/08/17 1456 Imaging Last Impressions Chest X-Ray 04/07/17 0000 Signed Impressions: Service Date/Time: Friday, April 07, 2017 09:44 - CONCLUSION: Worsening bilateral pulmonary infiltrates. Cardiomegaly. Luis Marmolejo Jr., MD CT Angiography 04/07/17 0000 Signed Impressions: Service Date/Time: Friday, April 07, 2017 17:51 - CONCLUSION: 1. Negative for pulmonary embolus. 2. Large bullous lesion at the right lung apex measuring at least 9 cm in diameter with a small amount of internal fluid and surrounding lung consolidation. Additional patchy airspace disease at both bases. Small bilateral pleural effusions. Moderate to severe centrilobular emphysema as well. 3. Severe coronary calcifications. 4. Mild hilar and mediastinal adenopathy. Raleigh Naranjo MD Tibia/Fibula X-Ray 04/05/17 0000 Signed Impressions: Service Date/Time: Wednesday, April 05, 2017 16:28 - CONCLUSION: Soft tissue swelling without fracture or periosteal reaction. Benton Hidalgo MD Myocardial Perfusion Scan Nuc Med 04/05/17 0000 Signed Impressions: Service Date/Time: Wednesday, April 05, 2017 14:29 - CONCLUSION: No appreciable ischemia. RISK CATEGORY: Low (<1%% Annual Mortality Rate) Anna Ratliff MD Lower Extremity Ultrasound 04/05/17 0000 Signed Impressions: Service Date/Time: Wednesday, April 05, 2017 10:30 - CONCLUSION: Bilateral DVT. Anna Ratliff MD Lower Extremity MRI 04/05/17 0000 Signed Impressions: Service Date/Time: Wednesday, April 05, 2017 16:42 - CONCLUSION: Edematous soft tissues of the left leg. No abscess or osteomyelitis. Benton Hidalgo MD Procedures None Other Results Laboratory Tests Test 04/03/17 09:00 04/03/17 10:15 04/07/17 15:25 04/08/17 04:33 Blood Urea Nitrogen 12 MG/DL Creatinine 1.15 MG/DL Random Glucose 81 MG/DL Total Protein 8.3 GM/DL Albumin 2.5 GM/DL Calcium Level 8.8 MG/DL Magnesium Level 1.9 MG/DL Alkaline Phosphatase 125 U/L Aspartate Amino Transf (AST/SGOT) 44 U/L Alanine Aminotransferase (ALT/SGPT) 27 U/L Total Bilirubin 0.9 MG/DL Sodium Level 136 MEQ/L Potassium Level 5.7 MEQ/L Chloride Level 102 MEQ/L Carbon Dioxide Level 25.9 MEQ/L Total Creatine Kinase 224 U/L Creatine Kinase MB 2.0 NG/ML Troponin I LESS THAN 0.02 NG/ML Thyroid Stimulating Hormone 3rd Gen 3.880 uIU/ML Urine Color YELLOW Urine Turbidity HAZY Urine pH 5.5 Urine Specific [place] 1.012 Urine Protein 30 mg/dL Urine Glucose (UA) NEG mg/dL Urine Ketones NEG mg/dL Urine Occult Blood MOD Urine Nitrite POS Urine Bilirubin NEG Urine Urobilinogen LESS THAN 2.0 MG/DL Urine Leukocyte Esterase LARGE Urine RBC 4 /hpf Urine WBC 67 /hpf Urine WBC Clumps FEW Urine Squamous Epithelial Cells 1 /hpf Urine Calcium Oxalate Crystals MOD /hpf Urine Bacteria MANY /hpf Urine Mucus FEW /lpf Microscopic Urinalysis Comment CULTURE INDICATED Nasal Screen MRSA (PCR) MRSA NOT DETECTED Neutrophils (%) (Auto) 58.0 % Lymphocytes (%) (Auto) 22.6 % Monocytes (%) (Auto) 12.6 % Eosinophils (%) (Auto) 5.5 % Basophils (%) (Auto) 1.3 % Neutrophils # (Auto) 3.1 TH/MM3 Lymphocytes # (Auto) 1.2 TH/MM3 Monocytes # (Auto) 0.7 TH/MM3 Eosinophils # (Auto) 0.3 TH/MM3 Basophils # (Auto) 0.1 TH/MM3 CBC Comment DIFF FINAL Differential Comment Test 04/08/17 14:56 04/09/17 05:20 04/11/17 04:00 Blood Urea Nitrogen 12 MG/DL Creatinine 0.77 MG/DL Random Glucose 111 MG/DL Calcium Level 8.6 MG/DL Sodium Level 136 MEQ/L Potassium Level 3.4 MEQ/L Chloride Level 97 MEQ/L Carbon Dioxide Level 32.7 MEQ/L Anion Gap 6 MEQ/L Estimat Glomerular Filtration Rate 120 ML/MIN White Blood Count 5.7 TH/MM3 Red Blood Count 4.82 MIL/MM3 Hemoglobin 14.3 GM/DL Hematocrit 42.2 % Mean Corpuscular Volume 87.5 FL Mean Corpuscular Hemoglobin 29.7 PG Mean Corpuscular Hemoglobin Concent 34.0 % Red Cell Distribution Width 15.9 % Platelet Count 245 TH/MM3 Mean Platelet Volume 8.0 FL B-Type Natriuretic Peptide 2018 PG/ML Prothrombin Time 20.6 SEC Prothromb Time International Ratio 2.0 RATIO Activated Partial Thromboplast Time 56.0 SEC Objective Remarks GENERAL: No acute distress a this time. CARDIOVASCULAR: Regular rate and irregular rhythm without murmurs, gallops, or rubs. RESPIRATORY: decreased breath sounds no wheezing or crackles. GASTROINTESTINAL: Abdomen soft, non-tender, nondistended. Normal, active bowel sounds MUSCULOSKELETAL: Left lower extremity with 7 cm ulcer which has eschar tissue in it, right lower extremity with 10 cm ulcer which show granulation healing NEURO: mumbling awake, moves all extremities Medications and IVs Current Medications Medications (Trade) Dose Ordered Sig/Deacon Route Start Time Stop Time Status Last Admin (NS Flush) 2 ml UNSCH PRN IV FLUSH 04/03/17 11:00 (NS Flush) 2 ml BID IV FLUSH 04/03/17 21:00 04/10/17 08:29 (Tylenol) 650 mg Q4H PRN PO 04/03/17 11:00 (Cardizem) 30 mg QID PO 04/03/17 13:00 04/10/17 22:22 (Ecotrin Ec) 81 mg DAILY PO 04/03/17 13:00 04/10/17 08:28 Ceftriaxone Sodium 1000 mg/ Sodium Chloride 100 ml @ 200 mls/hr Q24H IV 04/04/17 15:00 04/10/17 15:49 Azithromycin 500 mg/Sodium Chloride 250 ml @ 250 mls/hr Q24H IV 04/04/17 14:00 04/10/17 13:22 (Coreg) 6.25 mg Q12HR PO 04/05/17 11:00 04/10/17 22:21 (Prinivil) 2.5 mg DAILY PO 04/06/17 09:00 04/10/17 08:27 Pharmacy Profile Note 0 ml @ 0 mls/hr UNSCH OTHER 04/05/17 10:30 (Lasix Inj) 40 mg BID@ IV PUSH 04/05/17 18:00 04/10/17 18:07 (Pill Splitter) 1 ea UNSCH PRN OTHER 04/05/17 11:00 (Ultram) 50 mg Q6H PRN PO 04/05/17 12:15 04/07/17 03:28 (Coumadin) 5 mg DAILY@1600 PO 04/05/17 16:00 04/10/17 15:49 Heparin Sodium/ Dextrose 250 ml @ 15 mls/hr TITRATE PRN IV 04/06/17 13:45 04/11/17 01:39 (Gentamicin 0.1% Cream) 1 applic DAILY TOPICAL 04/07/17 09:00 04/10/17 08:30 (Santyl Oint) 1 applic DAILY TOPICAL 04/07/17 09:00 04/10/17 08:30 (Colace) 100 mg BID PO 04/07/17 09:00 04/10/17 22:21 (Milk Of Magnesia Liq) 30 ml Q6H PRN PO 04/07/17 01:30 04/10/17 22:22 Miscellaneous Information Patient in critical care unit? Ass... Q361D .XX 04/07/17 21:30 04/07/17 21:30 (Chlorhexidine 2% Cloth) 3 pack DAILY@04 TOPICAL 04/08/17 04:00 04/12/17 04:01 04/09/17 04:00 (Chlorhexidine 2% Cloth) 3 pack UNSCH PRN TOPICAL 04/07/17 21:30 04/12/17 21:20 A/P Assessment and Plan Due to Chest X ray that showed right lobe and base airspace disease was started on Rocephin and Azithromycin, discussed with wound care about his Left leg necrotic wound, consulted podiatry specialist, 2D echocardiogram EF 15%, pulmonary specialist following, Bilateral leg US with bilateral DVT, already on Warfarin started by Cardiology for Atrial Fibrillation, Heparin drip as per Podiatry specialist, on hold for I and D, Patient refused blood thinners, Palliative care and Psychiatry following, was transferred to Intensive Care Unit due to Respiratory failure, on non rebreather mask, Poor prognosis, new Echocardiogram showed EF 20 to 25%, on CTA Large Bullous lesions at the right lung apex measuring 9 cm in diameter with a small amount of internal fluid and surrounding lung consolidation, Additional patchy airspace disease at both bases, Small bilateral pleural effusions, Moderate to severe centrilobular emphysema as well, consulted cardiac rehabilitation specialist. Atrial fibrillation with RVR Bilateral DVT in lower extremity -CHADSVASC2 score 2 (age and CHF.). heparin and Warfarin. INR 2 will try to keep him 24 hours more on both heparin and Warfarin and if therapeutic by tomorrow discontinue Heparin. Community-acquired pneumonia showed on a chest x-ray, Minimal airspace disease in right midlung and right base continue Rocephin, Azithromycin, bronchodilator, Mucolytic, incentive spirometry , Pulmonary following recommended high flow oxygen through nasal cannula. CHF exacerbation -Chest x-ray shows minimal left airspace disease in the mid lung. BMP 1912. Patient also had lower extremity edema. -Lasix 40 mg IV BID. Lisinopril, Coreg and Aspirin. UTI with Escherichia coli/Klebsiella Sensitive to ceftriaxone Chronic lower extremity edema and wounds -Patient is noncompliant. Wound care following. Right mid and lower lobe pneumonia with respiratory failure -Combination of CHF and COPD. -Continue with oxygen high flow. DVT prophylaxis Heparin and Warfarin. PT asked. Discharge Planning Once cleared by Specialists. Nahun Yañez MD Apr 11, 2017 07:52
[2017-04-11] MEDS: DILTIAZEM HCL 30 MG TAB PO SCH ×4 (08:48→21:14)
[2017-04-11] MEDS: DOCUSATE SODIUM 100 MG CAP PO SCH ×2 (08:48→21:14)
[2017-04-11] MEDS: LISINOPRIL 5 MG TAB PO SCH (08:48)
[2017-04-11] MEDS: ASPIRIN EC 81 MG TABEC PO SCH (08:48)
[2017-04-11] MEDS: CARVEDILOL 6.25 MG TAB PO SCH ×2 (08:48→21:14)
[2017-04-11] MEDS: GENTAMICIN SULFATE 0.1% CREAM 15 GM TOPICAL SCH (08:49)
[2017-04-11] MEDS: FUROSEMIDE 40 MG/4 ML VIAL IV PUSH SCH ×2 (08:49→18:25)
[2017-04-11] MEDS: COLLAGENASE OINT 30 GM TUBE TOPICAL SCH (08:49)
[2017-04-11] MEDS: SODIUM CHLORIDE 0.9% FLUSH 10 ML FLUSH IV FLUSH SCH ×3 (08:49→21:13)
--- NOTE | 2017-04-11 10:21 | PD.CARD.PN ---
Subjective Subjective Remarks No events overnight Patient states he's breathing well but on high-flow Objective Medications Current Medications Medications (Trade) Dose Ordered Sig/Deacon Route Start Time Stop Time Status Last Admin (NS Flush) 2 ml UNSCH PRN IV FLUSH 04/03/17 11:00 (NS Flush) 2 ml BID IV FLUSH 04/03/17 21:00 04/11/17 08:49 (Tylenol) 650 mg Q4H PRN PO 04/03/17 11:00 (Cardizem) 30 mg QID PO 04/03/17 13:00 04/11/17 08:48 (Ecotrin Ec) 81 mg DAILY PO 04/03/17 13:00 04/11/17 08:48 Ceftriaxone Sodium 1000 mg/ Sodium Chloride 100 ml @ 200 mls/hr Q24H IV 04/04/17 15:00 04/10/17 15:49 Azithromycin 500 mg/Sodium Chloride 250 ml @ 250 mls/hr Q24H IV 04/04/17 14:00 04/10/17 13:22 (Coreg) 6.25 mg Q12HR PO 04/05/17 11:00 04/11/17 08:48 (Prinivil) 2.5 mg DAILY PO 04/06/17 09:00 04/11/17 08:48 Pharmacy Profile Note 0 ml @ 0 mls/hr UNSCH OTHER 04/05/17 10:30 (Lasix Inj) 40 mg BID@09,18 IV PUSH 04/05/17 18:00 04/11/17 08:49 (Pill Splitter) 1 ea UNSCH PRN OTHER 04/05/17 11:00 (Ultram) 50 mg Q6H PRN PO 04/05/17 12:15 04/07/17 03:28 (Coumadin) 5 mg DAILY@1600 PO 04/05/17 16:00 04/10/17 15:49 Heparin Sodium/ Dextrose 250 ml @ 15 mls/hr TITRATE PRN IV 04/06/17 13:45 04/11/17 01:39 (Gentamicin 0.1% Cream) 1 applic DAILY TOPICAL 04/07/17 09:00 04/11/17 08:49 (Santyl Oint) 1 applic DAILY TOPICAL 04/07/17 09:00 04/11/17 08:49 (Colace) 100 mg BID PO 04/07/17 09:00 04/11/17 08:48 (Milk Of Magnesia Liq) 30 ml Q6H PRN PO 04/07/17 01:30 04/10/17 22:22 Miscellaneous Information Patient in critical care unit? Ass... Q361D .XX 04/07/17 21:30 04/07/17 21:30 (Chlorhexidine 2% Cloth) 3 pack DAILY@04 TOPICAL 04/08/17 04:00 04/12/17 04:01 04/09/17 04:00 (Chlorhexidine 2% Cloth) 3 pack UNSCH PRN TOPICAL 04/07/17 21:30 04/12/17 21:20 Vital Signs / I&O Vital Signs Date Time Temp Pulse Resp B/P (MAP) Pulse Ox O2 Delivery O2 Flow Rate FiO2 04/11/17 09:11 93 Nasal Cannula 04/11/17 07:33 99.0 04/11/17 06:41 83 04/11/17 04:00 98.9 71 22 124/77 (93) 92 04/11/17 04:00 83 04/11/17 02:00 85 04/11/17 00:00 86 04/11/17 00:00 98.4 84 24 142/81 (101) 92 04/10/17 22:00 80 04/10/17 20:00 79 04/10/17 20:00 98.8 84 24 117/72 (87) 94 04/10/17 20:00 Nasal Cannula 20.00 55 04/10/17 19:15 93 High Flow Nasal Cannula 20.00 55 04/10/17 18:06 95 High Flow Nasal Cannula 25.00 50 04/10/17 18:00 93 04/10/17 16:00 98.0 88 22 101/65 (77) 92 04/10/17 16:00 88 04/10/17 14:00 82 04/10/17 12:00 79 04/10/17 12:00 97.6 79 28 101/62 (75) 93 I/O 04/10/17 04/10/17 04/10/17 04/11/17 04/11/17 04/11/17 07:00 15:00 23:00 07:00 15:00 23:00 Intake Total 470 ml 250 ml 554 ml 380 ml Output Total 1600 ml 2300 ml 1200 ml 150 ml Balance -1130 ml 250 ml -1746 ml -820 ml -150 ml Intake Oral 150 ml 300 ml 100 ml IV Total 320 ml 250 ml 254 ml 280 ml Output Urine Total 1600 ml 2300 ml 1200 ml 150 ml # Bowel Movements 1 Physical Exam GENERAL: NAD, AAOx3 SKIN: Warm and dry. HEAD: Atraumatic. Normocephalic. EYES: Pupils equal and round. No scleral icterus. No injection or drainage. ENT: No nasal bleeding or discharge. Mucous membranes pink and moist. NECK: Trachea midline. No JVD. CARDIOVASCULAR: Regular rate and rhythm. RESPIRATORY: No accessory muscle use. Decreased breath sounds bilaterally, mild crackles at the bases GASTROINTESTINAL: Abdomen soft, non-tender, nondistended. Hepatic and splenic margins not palpable. MUSCULOSKELETAL: Extremities with mild edema bilaterally NEUROLOGICAL: Awake and alert. No obvious cranial nerve deficits. Motor grossly within normal limits. Five out of 5 muscle strength in the arms and legs. Normal speech. PSYCHIATRIC: Appropriate mood and affect; insight and judgment normal. Laboratory Laboratory Tests Test 04/11/17 04:00 Prothrombin Time 20.6 SEC Prothromb Time International Ratio 2.0 RATIO Activated Partial Thromboplast Time 56.0 SEC Assessment and Plan Problem List: (1) Atrial fibrillation ICD Codes: I48.91 - Unspecified atrial fibrillation (2) Acute exacerbation of CHF (congestive heart failure) ICD Codes: I50.9 - Heart failure, unspecified Status: Acute (3) DVT (deep venous thrombosis) ICD Codes: I82.409 - Acute embolism and thrombosis of unspecified deep veins of unspecified lower extremity Status: Acute (4) Dyspnea ICD Codes: R06.00 - Dyspnea, unspecified (5) Edema ICD Codes: R60.9 - Edema, unspecified (6) Respiratory failure ICD Codes: J96.90 - Respiratory failure, unspecified, unspecified whether with hypoxia or hypercapnia Assessment and Plan 1) CHF Nuclear stress test negative EF 20-25% by echo with global dyskinesia Con't diuresis ASA/Coreg/Lisinopril 2) B/L LE DVT Heparin/Coumadin per primary team 3) Afib On anticoagulation for DVT 4) Increased oxygen demand even though he's diuresing >1L a day and weight decreasing Agree with pulmonary consultation Asked nurse to place PT eval and to get him up to the chair as he cramped in the bed, most likely not helping his breathing Weight down 6kg Problem Qualifiers (1) Acute exacerbation of CHF (congestive heart failure): Qualified Codes: I50.9 - Heart failure, unspecified (2) DVT (deep venous thrombosis): Merrick Delgado DO Apr 11, 2017 10:21
[2017-04-11 12:59] LABS: AUTOMATED NEUTROPHIL # 2.9 TH/MM3 (1.8-7.7); BASOPHIL % 0.4 % (0.0-2.0); EOSINOPHIL # 0.3 TH/MM3 (0-0.4); EOSINOPHIL % 5.9 % (0.0-4.0); HEMATOCRIT 47.2 % (39.0-51.0); HEMOGLOBIN 15.7 GM/DL (13.0-17.0); LYMPH % 24.2 % (9.0-44.0); LYMPHOCYTE # 1.3 TH/MM3 (1.0-4.8); MEAN CELL VOLUME 87.2 FL (80.0-100.0); MEAN CORPUSCULAR HEMOGLOBIN 29.1 PG (27.0-34.0); MEAN CORPUSCULAR HGB CONC 33.4 % (32.0-36.0); MEAN PLATELET VOLUME 8.7 FL (7.0-11.0); MONO % 14.6 % (0.0-8.0); MONOCYTE # 0.8 TH/MM3 (0-0.9); NEUT % 54.9 % (16.0-70.0); PLATELET COUNT 282 TH/MM3 (150-450); RED BLOOD COUNT 5.41 MIL/MM3 (4.50-5.90); WHITE BLOOD COUNT 5.3 TH/MM3 (4.0-11.0)
[2017-04-11 13:14] LABS: BICARBONATE 36.3 MEQ/L (21.0-32.0); CALCIUM 8.7 MG/DL (8.5-10.1); CREATININE 0.82 MG/DL (0.60-1.30)
[2017-04-11] MEDS: cefTRIAXone INJ 1,000 MG in SODIUM CHLORIDE 0.9% INJ 100 ML IV SCH ×2 (15:00→20:18)
[2017-04-11] MEDS: WARFARIN SOD 5 MG TAB PO SCH (16:00)
[2017-04-11] MEDS: AZITHROMYCIN INJ 500 MG in SODIUM CHLOR 0.9% 250 ML INJ 250 ML IV SCH (18:25)
[2017-04-11] MEDS: MAGNESIUM HYDROXIDE SUSP 30 ML CUP PO PRN (21:14)
[2017-04-12] VITALS (14 sets, daily range): BP systolic 102–137; BP diastolic 65–85; PULSE 78–92; RESP 18–35; TEMP 97–99.6; O2SAT 88–97
[2017-04-12] MEDS: HEPARIN-D5W 25,000 U/250 ML 250 ML IV PRN (01:22)
[2017-04-12] MEDS: CHLORHEXIDINE GLUCONATE 2 % 1 PACK (2 CLOTHS)(taper/protocol) TOPICAL SCH (04:00)
[2017-04-12 04:52] LABS: HEMATOCRIT 45.5 % (39.0-51.0); HEMOGLOBIN 15.3 GM/DL (13.0-17.0); MEAN CELL VOLUME 86.9 FL (80.0-100.0); MEAN CORPUSCULAR HEMOGLOBIN 29.3 PG (27.0-34.0); MEAN CORPUSCULAR HGB CONC 33.7 % (32.0-36.0); MEAN PLATELET VOLUME 8.4 FL (7.0-11.0); PLATELET COUNT 264 TH/MM3 (150-450); RED BLOOD COUNT 5.24 MIL/MM3 (4.50-5.90); WHITE BLOOD COUNT 5.7 TH/MM3 (4.0-11.0)
[2017-04-12 05:00] LABS: INTERNATIONAL NORMALIZED RATIO 2.4 RATIO; PROTHROMBIN TIME - PATIENT 24.7 SEC (9.8-11.6)
[2017-04-12] MEDS: FUROSEMIDE 40 MG/4 ML VIAL IV PUSH SCH ×2 (08:58→18:00)
[2017-04-12] MEDS: DOCUSATE SODIUM 100 MG CAP PO SCH ×2 (08:59→20:32)
[2017-04-12] MEDS: CARVEDILOL 6.25 MG TAB PO SCH ×2 (08:59→20:32)
[2017-04-12] MEDS: ASPIRIN EC 81 MG TABEC PO SCH (08:59)
[2017-04-12] MEDS: LISINOPRIL 5 MG TAB PO SCH (09:00)
[2017-04-12] MEDS: COLLAGENASE OINT 30 GM TUBE TOPICAL SCH (09:01)
[2017-04-12] MEDS: SODIUM CHLORIDE 0.9% FLUSH 10 ML FLUSH IV FLUSH SCH ×2 (09:02→20:32)
[2017-04-12] MEDS: GENTAMICIN SULFATE 0.1% CREAM 15 GM TOPICAL SCH (09:02)
[2017-04-12] MEDS: DILTIAZEM HCL 30 MG TAB PO SCH ×3 (09:13→20:32)
[2017-04-12] MEDS: MAGNESIUM HYDROXIDE SUSP 30 ML CUP PO PRN (11:14)
[2017-04-12] MEDS ORDERED: RESP: ALBUTEROL 2.5 MG/IPRATROPIUM 0.5 MG NEB (PRN) INH (11:45)
--- NOTE | 2017-04-12 12:43 | PD.CARD.PN ---
Subjective Subjective Remarks No events overnight Patient states he's breathing well but on high-flow Objective Medications Current Medications Medications (Trade) Dose Ordered Sig/Deacon Route Start Time Stop Time Status Last Admin (NS Flush) 2 ml UNSCH PRN IV FLUSH 04/03/17 11:00 (NS Flush) 2 ml BID IV FLUSH 04/03/17 21:00 04/12/17 09:02 (Tylenol) 650 mg Q4H PRN PO 04/03/17 11:00 (Cardizem) 30 mg QID PO 04/03/17 13:00 04/12/17 09:13 (Ecotrin Ec) 81 mg DAILY PO 04/03/17 13:00 04/12/17 08:59 Ceftriaxone Sodium 1000 mg/ Sodium Chloride 100 ml @ 200 mls/hr Q24H IV 04/04/17 15:00 04/11/17 15:00 Azithromycin 500 mg/Sodium Chloride 250 ml @ 250 mls/hr Q24H IV 04/04/17 14:00 04/11/17 18:25 (Coreg) 6.25 mg Q12HR PO 04/05/17 11:00 04/12/17 08:59 (Prinivil) 2.5 mg DAILY PO 04/06/17 09:00 04/12/17 09:00 Pharmacy Profile Note 0 ml @ 0 mls/hr UNSCH OTHER 04/05/17 10:30 (Lasix Inj) 40 mg BID@09,18 IV PUSH 04/05/17 18:00 04/12/17 08:58 (Pill Splitter) 1 ea UNSCH PRN OTHER 04/05/17 11:00 (Ultram) 50 mg Q6H PRN PO 04/05/17 12:15 04/07/17 03:28 (Coumadin) 5 mg DAILY@1600 PO 04/05/17 16:00 04/11/17 16:00 (Gentamicin 0.1% Cream) 1 applic DAILY TOPICAL 04/07/17 09:00 04/12/17 09:02 (Santyl Oint) 1 applic DAILY TOPICAL 04/07/17 09:00 04/12/17 09:01 (Colace) 100 mg BID PO 04/07/17 09:00 04/12/17 08:59 (Milk Of Magnesia Liq) 30 ml Q6H PRN PO 04/07/17 01:30 04/12/17 11:14 Miscellaneous Information Patient in critical care unit? Ass... Q361D .XX 04/07/17 21:30 04/07/17 21:30 (Chlorhexidine 2% Cloth) 3 pack UNSCH PRN TOPICAL 04/07/17 21:30 04/12/17 21:20 (Duoneb Neb) 1 ampule Q4HR NEB PRN INH 04/12/17 11:45 Vital Signs / I&O Vital Signs Date Time Temp Pulse Resp B/P (MAP) Pulse Ox O2 Delivery O2 Flow Rate FiO2 04/12/17 10:00 85 04/12/17 09:58 96 High Flow Nasal Cannula 20.00 50 04/12/17 08:00 96 Nasal Cannula 20.00 55 04/12/17 08:00 84 04/12/17 08:00 98.9 84 27 131/82 (98) 96 04/12/17 06:00 79 04/12/17 04:00 99.6 79 26 120/73 (89) 94 04/12/17 04:00 79 04/12/17 02:00 82 04/12/17 00:00 98.4 84 35 137/85 (102) 94 04/12/17 00:00 84 04/11/17 22:00 89 04/11/17 21:15 96 High Flow Nasal Cannula 20.00 55 04/11/17 20:00 95 04/11/17 20:00 98.4 95 32 99/62 (74) 95 04/11/17 20:00 94 Nasal Cannula 20.00 55 04/11/17 18:00 93 24 93 04/11/17 18:00 93 04/11/17 17:00 82 04/11/17 17:00 82 19 120/74 (89) 90 04/11/17 16:00 80 04/11/17 16:00 80 26 123/74 (90) 92 04/11/17 14:00 79 04/11/17 13:00 76 04/11/17 13:00 76 21 111/67 (82) 90 I/O 04/11/17 04/11/17 04/11/17 04/12/17 04/12/17 04/12/17 07:00 15:00 23:00 07:00 15:00 23:00 Intake Total 380 ml 820 ml 700 ml 106 ml Output Total 1200 ml 150 ml 1800 ml 1600 ml Balance -820 ml -150 ml -980 ml -900 ml 106 ml Intake Oral 100 ml 720 ml 200 ml IV Total 280 ml 100 ml 500 ml 106 ml Output Urine Total 1200 ml 150 ml 1800 ml 1600 ml Stool Total 0 ml # Voids 7 # Bowel Movements 0 0 Physical Exam GENERAL: NAD, AAOx3 SKIN: Warm and dry. HEAD: Atraumatic. Normocephalic. EYES: Pupils equal and round. No scleral icterus. No injection or drainage. ENT: No nasal bleeding or discharge. Mucous membranes pink and moist. NECK: Trachea midline. No JVD. CARDIOVASCULAR: Regular rate and rhythm. RESPIRATORY: No accessory muscle use. Decreased breath sounds bilaterally, mild crackles at the bases GASTROINTESTINAL: Abdomen soft, non-tender, nondistended. Hepatic and splenic margins not palpable. MUSCULOSKELETAL: Extremities with mild edema bilaterally NEUROLOGICAL: Awake and alert. No obvious cranial nerve deficits. Motor grossly within normal limits. Five out of 5 muscle strength in the arms and legs. Normal speech. PSYCHIATRIC: Appropriate mood and affect; insight and judgment normal. Laboratory Laboratory Tests Test 04/12/17 04:12 White Blood Count 5.7 TH/MM3 Red Blood Count 5.24 MIL/MM3 Hemoglobin 15.3 GM/DL Hematocrit 45.5 % Mean Corpuscular Volume 86.9 FL Mean Corpuscular Hemoglobin 29.3 PG Mean Corpuscular Hemoglobin Concent 33.7 % Red Cell Distribution Width 16.0 % Platelet Count 264 TH/MM3 Mean Platelet Volume 8.4 FL Prothrombin Time 24.7 SEC Prothromb Time International Ratio 2.4 RATIO Assessment and Plan Problem List: (1) Atrial fibrillation ICD Codes: I48.91 - Unspecified atrial fibrillation (2) Acute exacerbation of CHF (congestive heart failure) ICD Codes: I50.9 - Heart failure, unspecified Status: Acute (3) DVT (deep venous thrombosis) ICD Codes: I82.409 - Acute embolism and thrombosis of unspecified deep veins of unspecified lower extremity Status: Acute (4) Dyspnea ICD Codes: R06.00 - Dyspnea, unspecified (5) Edema ICD Codes: R60.9 - Edema, unspecified (6) Respiratory failure ICD Codes: J96.90 - Respiratory failure, unspecified, unspecified whether with hypoxia or hypercapnia Assessment and Plan 1) CHF Nuclear stress test negative EF 20-25% by echo with global dyskinesia Con't diuresis ASA/Coreg/Lisinopril 2) B/L LE DVT Heparin/Coumadin per primary team 3) Afib On anticoagulation for DVT 4) Increased oxygen demand even though he's diuresing >1L a day and weight decreasing Agree with pulmonary consultation Asked nurse to place PT eval and to get him up to the chair as he cramped in the bed, most likely not helping his breathing Weight down 6kg 5) Con't diuresis, wean oxygen as possible Will see PRN, call with questions Problem Qualifiers (1) Acute exacerbation of CHF (congestive heart failure): Qualified Codes: I50.9 - Heart failure, unspecified (2) DVT (deep venous thrombosis): Merrick Delgado DO Apr 12, 2017 12:43
--- NOTE | 2017-04-12 13:44 | PD.POD ---
Subjective Podiatric Problems Ulcers Right and left legs Past Med/Surg/Social History Social History Smoking Status: Former Smoker Objective Vital Signs Vital Signs Date Time Temp Pulse Resp B/P (MAP) Pulse Ox O2 Delivery O2 Flow Rate FiO2 04/12/17 12:00 98.9 78 23 108/65 (79) 88 04/12/17 12:00 78 04/12/17 10:00 85 04/12/17 09:58 96 High Flow Nasal Cannula 20.00 50 04/12/17 08:00 96 Nasal Cannula 20.00 55 04/12/17 08:00 84 04/12/17 08:00 98.9 84 27 131/82 (98) 96 04/12/17 06:00 79 04/12/17 04:00 99.6 79 26 120/73 (89) 94 04/12/17 04:00 79 04/12/17 02:00 82 04/12/17 00:00 98.4 84 35 137/85 (102) 94 04/12/17 00:00 84 04/11/17 22:00 89 04/11/17 21:15 96 High Flow Nasal Cannula 20.00 55 04/11/17 20:00 95 04/11/17 20:00 98.4 95 32 99/62 (74) 95 04/11/17 20:00 94 Nasal Cannula 20.00 55 04/11/17 18:00 93 24 93 04/11/17 18:00 93 04/11/17 17:00 82 04/11/17 17:00 82 19 120/74 (89) 90 04/11/17 16:00 80 04/11/17 16:00 80 26 123/74 (90) 92 04/11/17 14:00 79 Coded Allergies: Penicillins (Verified Allergy, Unknown, 04/03/17) Exam-Podiatry Remarks Very superficial ulcerations, partial thickness, to anterior right and left freitas areas, each approximately 4cm x 2.5cm x 0.1cm depth. Painful to palpation. No sign of infection Assessment & Plan A/P Ulcers R and L legs Changed dressing orders to gentamicin, nonadherent gauze, abd, cling, tape every other day per nursing. Re-consult if new issues arise. Podiatry signing off Evangelist Cortez DPM Apr 12, 2017 13:44
[2017-04-12] MEDS: AZITHROMYCIN INJ 500 MG in SODIUM CHLOR 0.9% 250 ML INJ 250 ML IV SCH (14:07)
[2017-04-12] MEDS: cefTRIAXone INJ 1,000 MG in SODIUM CHLORIDE 0.9% INJ 100 ML IV SCH (15:24)
[2017-04-12] MEDS: WARFARIN SOD 5 MG TAB PO SCH (15:26)
--- NOTE | 2017-04-12 16:32 | HHI.PR ---
Subjective Remarks Following patient with Respiratory failure CHF exacerbation, Mostly mumbling customer advisor specialist following, clinical pharmacy specialist, Psychiatry specialist consulted 04/10: Seen in his bedroom, stable clinical pharmacy specialist following recommended to continue diuresis deaf/hard of hearing specialist following, with Diagnosis of Acute on chronic respiratory failure, CHF, COPD, Atrial Fibrillation, recommended to continue oxygen, Bronchodilators, high flow oxygen by nasal cannula 04/11: Patient discussed with nurse, no changes in his condition, as per Cardiology to continue diuresis Aspirin, Coreg and Lisinopril, PT eval asked by Cardiology. 04/12: Stable in his bedroom seen with nurse Miss Blanton, INR therapeutic, discontinued Heparin by clinical pharmacy specialist, recommended to continue diuresis, deaf/hard of hearing specialist following not yet cleared for discharge by specialists, has Constipation, given lactulose, Glycerine suppository and fleet enema if needed. Objective Vital Signs Date Time Temp Pulse Resp B/P (MAP) Pulse Ox O2 Delivery O2 Flow Rate FiO2 04/12/17 14:00 78 04/12/17 12:00 98.9 78 23 108/65 (79) 88 04/12/17 12:00 78 04/12/17 10:00 85 04/12/17 09:58 96 High Flow Nasal Cannula 20.00 50 04/12/17 08:00 96 Nasal Cannula 20.00 55 04/12/17 08:00 84 04/12/17 08:00 98.9 84 27 131/82 (98) 96 04/12/17 06:00 79 04/12/17 04:00 99.6 79 26 120/73 (89) 94 04/12/17 04:00 79 04/12/17 02:00 82 04/12/17 00:00 98.4 84 35 137/85 (102) 94 04/12/17 00:00 84 04/11/17 22:00 89 04/11/17 21:15 96 High Flow Nasal Cannula 20.00 55 04/11/17 20:00 95 04/11/17 20:00 98.4 95 32 99/62 (74) 95 04/11/17 20:00 94 Nasal Cannula 20.00 55 04/11/17 18:00 93 24 93 04/11/17 18:00 93 04/11/17 17:00 82 04/11/17 17:00 82 19 120/74 (89) 90 I/O 04/11/17 04/11/17 04/11/17 04/12/17 04/12/17 04/12/17 07:00 15:00 23:00 07:00 15:00 23:00 Intake Total 380 ml 820 ml 700 ml 106 ml 350 ml Output Total 1200 ml 150 ml 1800 ml 1600 ml Balance -820 ml -150 ml -980 ml -900 ml 106 ml 350 ml Intake Oral 100 ml 720 ml 200 ml IV Total 280 ml 100 ml 500 ml 106 ml 350 ml Output Urine Total 1200 ml 150 ml 1800 ml 1600 ml Stool Total 0 ml # Voids 7 # Bowel Movements 0 0 Result Diagram: 04/12/17 0412 04/11/17 1207 Imaging Last Impressions Chest X-Ray 04/07/17 0000 Signed Impressions: Service Date/Time: Friday, April 07, 2017 09:44 - CONCLUSION: Worsening bilateral pulmonary infiltrates. Cardiomegaly. Luis Marmolejo Jr., MD CT Angiography 04/07/17 0000 Signed Impressions: Service Date/Time: Friday, April 07, 2017 17:51 - CONCLUSION: 1. Negative for pulmonary embolus. 2. Large bullous lesion at the right lung apex measuring at least 9 cm in diameter with a small amount of internal fluid and surrounding lung consolidation. Additional patchy airspace disease at both bases. Small bilateral pleural effusions. Moderate to severe centrilobular emphysema as well. 3. Severe coronary calcifications. 4. Mild hilar and mediastinal adenopathy. Raleigh Naranjo MD Tibia/Fibula X-Ray 04/05/17 0000 Signed Impressions: Service Date/Time: Wednesday, April 05, 2017 16:28 - CONCLUSION: Soft tissue swelling without fracture or periosteal reaction. Benton Hidalgo MD Myocardial Perfusion Scan Nuc Med 04/05/17 0000 Signed Impressions: Service Date/Time: Wednesday, April 05, 2017 14:29 - CONCLUSION: No appreciable ischemia. RISK CATEGORY: Low (<1%% Annual Mortality Rate) Anna Ratliff MD Lower Extremity Ultrasound 04/05/17 0000 Signed Impressions: Service Date/Time: Wednesday, April 05, 2017 10:30 - CONCLUSION: Bilateral DVT. Anna Ratliff MD Lower Extremity MRI 04/05/17 0000 Signed Impressions: Service Date/Time: Wednesday, April 05, 2017 16:42 - CONCLUSION: Edematous soft tissues of the left leg. No abscess or osteomyelitis. Benton Hidalgo MD Procedures None Other Results Laboratory Tests Test 04/03/17 09:00 04/03/17 10:15 04/07/17 15:25 04/09/17 05:20 Blood Urea Nitrogen 12 MG/DL Creatinine 1.15 MG/DL Random Glucose 81 MG/DL Total Protein 8.3 GM/DL Albumin 2.5 GM/DL Calcium Level 8.8 MG/DL Magnesium Level 1.9 MG/DL Alkaline Phosphatase 125 U/L Aspartate Amino Transf (AST/SGOT) 44 U/L Alanine Aminotransferase (ALT/SGPT) 27 U/L Total Bilirubin 0.9 MG/DL Sodium Level 136 MEQ/L Potassium Level 5.7 MEQ/L Chloride Level 102 MEQ/L Carbon Dioxide Level 25.9 MEQ/L Total Creatine Kinase 224 U/L Creatine Kinase MB 2.0 NG/ML Troponin I LESS THAN 0.02 NG/ML Thyroid Stimulating Hormone 3rd Gen 3.880 uIU/ML Urine Color YELLOW Urine Turbidity HAZY Urine pH 5.5 Urine Specific [place] 1.012 Urine Protein 30 mg/dL Urine Glucose (UA) NEG mg/dL Urine Ketones NEG mg/dL Urine Occult Blood MOD Urine Nitrite POS Urine Bilirubin NEG Urine Urobilinogen LESS THAN 2.0 MG/DL Urine Leukocyte Esterase LARGE Urine RBC 4 /hpf Urine WBC 67 /hpf Urine WBC Clumps FEW Urine Squamous Epithelial Cells 1 /hpf Urine Calcium Oxalate Crystals MOD /hpf Urine Bacteria MANY /hpf Urine Mucus FEW /lpf Microscopic Urinalysis Comment CULTURE INDICATED Nasal Screen MRSA (PCR) MRSA NOT DETECTED B-Type Natriuretic Peptide 2018 PG/ML Test 04/11/17 04:00 04/11/17 12:07 04/12/17 04:12 Activated Partial Thromboplast Time 56.0 SEC Neutrophils (%) (Auto) 54.9 % Lymphocytes (%) (Auto) 24.2 % Monocytes (%) (Auto) 14.6 % Eosinophils (%) (Auto) 5.9 % Basophils (%) (Auto) 0.4 % Neutrophils # (Auto) 2.9 TH/MM3 Lymphocytes # (Auto) 1.3 TH/MM3 Monocytes # (Auto) 0.8 TH/MM3 Eosinophils # (Auto) 0.3 TH/MM3 Basophils # (Auto) 0.0 TH/MM3 CBC Comment DIFF FINAL Differential Comment Blood Urea Nitrogen 12 MG/DL Creatinine 0.82 MG/DL Random Glucose 118 MG/DL Calcium Level 8.7 MG/DL Sodium Level 139 MEQ/L Potassium Level 3.3 MEQ/L Chloride Level 96 MEQ/L Carbon Dioxide Level 36.3 MEQ/L Anion Gap 7 MEQ/L Estimat Glomerular Filtration Rate 112 ML/MIN White Blood Count 5.7 TH/MM3 Red Blood Count 5.24 MIL/MM3 Hemoglobin 15.3 GM/DL Hematocrit 45.5 % Mean Corpuscular Volume 86.9 FL Mean Corpuscular Hemoglobin 29.3 PG Mean Corpuscular Hemoglobin Concent 33.7 % Red Cell Distribution Width 16.0 % Platelet Count 264 TH/MM3 Mean Platelet Volume 8.4 FL Prothrombin Time 24.7 SEC Prothromb Time International Ratio 2.4 RATIO Objective Remarks GENERAL: No acute distress a this time. CARDIOVASCULAR: Regular rate and irregular rhythm without murmurs, gallops, or rubs. RESPIRATORY: decreased breath sounds no wheezing or crackles. GASTROINTESTINAL: Abdomen soft, non-tender, nondistended. MUSCULOSKELETAL: Left lower extremity with 7 cm ulcer which has eschar tissue in it, right lower extremity with 10 cm ulcer which show granulation healing NEURO: mumbling awake, moves all extremities Medications and IVs Current Medications Medications (Trade) Dose Ordered Sig/Deacon Route Start Time Stop Time Status Last Admin (NS Flush) 2 ml UNSCH PRN IV FLUSH 04/03/17 11:00 (NS Flush) 2 ml BID IV FLUSH 04/03/17 21:00 04/12/17 09:02 (Tylenol) 650 mg Q4H PRN PO 04/03/17 11:00 (Cardizem) 30 mg QID PO 04/03/17 13:00 04/12/17 14:02 (Ecotrin Ec) 81 mg DAILY PO 04/03/17 13:00 04/12/17 08:59 Ceftriaxone Sodium 1000 mg/ Sodium Chloride 100 ml @ 200 mls/hr Q24H IV 04/04/17 15:00 04/12/17 15:24 Azithromycin 500 mg/Sodium Chloride 250 ml @ 250 mls/hr Q24H IV 04/04/17 14:00 04/12/17 14:07 (Coreg) 6.25 mg Q12HR PO 04/05/17 11:00 04/12/17 08:59 (Prinivil) 2.5 mg DAILY PO 04/06/17 09:00 04/12/17 09:00 Pharmacy Profile Note 0 ml @ 0 mls/hr UNSCH OTHER 04/05/17 10:30 (Lasix Inj) 40 mg BID@09,18 IV PUSH 04/05/17 18:00 04/12/17 08:58 (Pill Splitter) 1 ea UNSCH PRN OTHER 04/05/17 11:00 (Ultram) 50 mg Q6H PRN PO 04/05/17 12:15 04/07/17 03:28 (Coumadin) 5 mg DAILY@1600 PO 04/05/17 16:00 04/12/17 15:26 (Gentamicin 0.1% Cream) 1 applic DAILY TOPICAL 04/07/17 09:00 04/12/17 09:02 (Santyl Oint) 1 applic DAILY TOPICAL 04/07/17 09:00 04/12/17 09:01 (Colace) 100 mg BID PO 04/07/17 09:00 04/12/17 08:59 (Milk Of Magnesia Liq) 30 ml Q6H PRN PO 04/07/17 01:30 04/12/17 11:14 Miscellaneous Information Patient in critical care unit? Ass... Q361D .XX 04/07/17 21:30 04/07/17 21:30 (Chlorhexidine 2% Cloth) 3 pack UNSCH PRN TOPICAL 04/07/17 21:30 04/12/17 21:20 (Duoneb Neb) 1 ampule Q4HR NEB PRN INH 04/12/17 11:45 A/P Assessment and Plan Due to Chest X ray that showed right lobe and base airspace disease was started on Rocephin and Azithromycin, discussed with wound care about his Left leg necrotic wound, consulted podiatry specialist, 2D echocardiogram EF 15%, clinical pharmacy specialist following, Bilateral leg US with bilateral DVT, already on Warfarin started by Cardiology for Atrial Fibrillation, Heparin drip as per Podiatry specialist, on hold for I and D, Patient refused blood thinners, Palliative care and Psychiatry following, was transferred to Intensive Care Unit due to Respiratory failure, on non rebreather mask, Poor prognosis, new Echocardiogram showed EF 20 to 25%, on CTA Large Bullous lesions at the right lung apex measuring 9 cm in diameter with a small amount of internal fluid and surrounding lung consolidation, Additional patchy airspace disease at both bases, Small bilateral pleural effusions, Moderate to severe centrilobular emphysema as well, consulted deaf/hard of hearing specialist. Atrial fibrillation with RVR Bilateral DVT in lower extremity -CHADSVASC2 score 2 (age and CHF.). heparin and Warfarin. INR 2.4 discontinued Heparin. Community-acquired pneumonia showed on a chest x-ray, Minimal airspace disease in right midlung and right base continue Rocephin, Azithromycin, bronchodilator, Mucolytic, incentive spirometry , Pulmonary following recommended high flow oxygen through nasal cannula. CHF exacerbation -Chest x-ray shows minimal left airspace disease in the mid lung. BMP 1912. Patient also had lower extremity edema. -Lasix 40 mg IV BID. Lisinopril, Coreg and Aspirin. continue diuresis. UTI with Escherichia coli/Klebsiella Sensitive to ceftriaxone Chronic lower extremity edema and wounds -Patient is noncompliant. Wound care following. Right mid and lower lobe pneumonia with respiratory failure -Combination of CHF and COPD. -Continue with oxygen high flow. DVT prophylaxis Heparin and Warfarin. PT asked. Discharge Planning Once cleared by Specialists. Nahun Yañez MD Apr 12, 2017 16:32
[2017-04-12] MEDS ORDERED: LACTULOSE SYRUP 20 GM/30 ML CUP PO ONE (17:00)
[2017-04-12] MEDS ORDERED: GLYCERIN ADULT 2 GM SUPP RECTAL ONE (17:00)
[2017-04-12] MEDS ORDERED: SOD PHOSPHATE/SOD BIPHOSPHATE (ADULT) ENEMA 133ML RECTAL PRN (17:00)
[2017-04-13] VITALS (16 sets, daily range): BP systolic 92–122; BP diastolic 53–79; PULSE 79–92; RESP 16–35; TEMP 98–99.1; O2SAT 90–97
[2017-04-13 07:01] LABS: INTERNATIONAL NORMALIZED RATIO 3.9 RATIO; PROTHROMBIN TIME - PATIENT 39.1 SEC (9.8-11.6)
[2017-04-13] MEDS: GENTAMICIN SULFATE 0.1% CREAM 15 GM TOPICAL SCH (08:28)
[2017-04-13] MEDS: COLLAGENASE OINT 30 GM TUBE TOPICAL SCH (08:28)
[2017-04-13] MEDS: DILTIAZEM HCL 30 MG TAB PO SCH ×4 (08:29→21:00)
[2017-04-13] MEDS: FUROSEMIDE 40 MG/4 ML VIAL IV PUSH SCH ×2 (08:29→17:35)
[2017-04-13] MEDS: LISINOPRIL 5 MG TAB PO SCH (08:29)
[2017-04-13] MEDS: SODIUM CHLORIDE 0.9% FLUSH 10 ML FLUSH IV FLUSH SCH ×2 (08:30→21:12)
[2017-04-13] MEDS: CARVEDILOL 6.25 MG TAB PO SCH ×2 (08:30→21:00)
[2017-04-13] MEDS: ASPIRIN EC 81 MG TABEC PO SCH (08:30)
[2017-04-13] MEDS: DOCUSATE SODIUM 100 MG CAP PO SCH ×2 (08:30→21:13)
--- NOTE | 2017-04-13 12:34 | HHI.PR ---
Subjective Remarks Following patient with Respiratory failure CHF exacerbation, Mostly mumbling critical care nurse specialist following, service specialist, Psychiatry specialist consulted 04/10: Seen in his bedroom, stable service specialist following recommended to continue diuresis web application dev specialist following, with Diagnosis of Acute on chronic respiratory failure, CHF, COPD, Atrial Fibrillation, recommended to continue oxygen, Bronchodilators, high flow oxygen by nasal cannula 04/11: Patient discussed with nurse, no changes in his condition, as per Cardiology to continue diuresis Aspirin, Coreg and Lisinopril, PT eval asked by Cardiology. 04/12: Stable in his bedroom seen with nurse Miss Blanton, INR therapeutic, discontinued Heparin by service specialist, recommended to continue diuresis, web application dev specialist following not yet cleared for discharge by specialists, has Constipation, given lactulose, Glycerine suppository and fleet enema if needed. 04/13: Seen in his bedroom, web application dev specialist Doctor Alarcon following, improving clinically. continue diuresis negative balance of liquids but continue on high oxygen flow. Objective Vital Signs Date Time Temp Pulse Resp B/P (MAP) Pulse Ox O2 Delivery O2 Flow Rate FiO2 04/13/17 12:00 83 04/13/17 12:00 98.1 83 35 92/53 (66) 93 04/13/17 10:00 87 04/13/17 08:15 95 High Flow Nasal Cannula 20.00 55 04/13/17 08:00 92 Nasal Cannula 20.00 55 04/13/17 08:00 99.1 89 20 122/79 (93) 92 04/13/17 08:00 89 04/13/17 06:00 90 04/13/17 04:00 98.1 87 16 112/73 (86) 94 04/13/17 04:00 87 04/13/17 03:41 97 High Flow Nasal Cannula 20.00 55 04/13/17 02:00 87 04/13/17 00:01 93 High Flow Nasal Cannula 20.00 55 04/13/17 00:00 90 04/13/17 00:00 98.0 92 18 121/76 (91) 97 04/12/17 22:00 88 04/12/17 20:02 92 High Flow Nasal Cannula 20.00 55 04/12/17 20:00 92 04/12/17 20:00 97.6 92 18 121/76 (91) 97 04/12/17 20:00 97 Nasal Cannula 20.00 55 04/12/17 18:00 83 04/12/17 16:00 83 04/12/17 16:00 97.0 83 30 102/70 (81) 93 04/12/17 14:00 78 I/O 04/12/17 04/12/17 04/12/17 04/13/17 04/13/17 04/13/17 07:00 15:00 23:00 07:00 15:00 23:00 Intake Total 700 ml 106 ml 650 ml 240 ml Output Total 1600 ml 1200 ml 1000 ml Balance -900 ml 106 ml -550 ml -760 ml Intake Oral 200 ml 300 ml 240 ml IV Total 500 ml 106 ml 350 ml Output Urine Total 1600 ml 1200 ml 1000 ml Stool Total 0 ml # Voids 7 # Bowel Movements 0 1 2 Result Diagram: 04/12/17 0412 04/11/17 1207 Imaging Last Impressions Chest X-Ray 04/07/17 0000 Signed Impressions: Service Date/Time: Friday, April 07, 2017 09:44 - CONCLUSION: Worsening bilateral pulmonary infiltrates. Cardiomegaly. Luis Marmolejo Jr., MD CT Angiography 04/07/17 0000 Signed Impressions: Service Date/Time: Friday, April 07, 2017 17:51 - CONCLUSION: 1. Negative for pulmonary embolus. 2. Large bullous lesion at the right lung apex measuring at least 9 cm in diameter with a small amount of internal fluid and surrounding lung consolidation. Additional patchy airspace disease at both bases. Small bilateral pleural effusions. Moderate to severe centrilobular emphysema as well. 3. Severe coronary calcifications. 4. Mild hilar and mediastinal adenopathy. Raleigh Naranjo MD Tibia/Fibula X-Ray 04/05/17 0000 Signed Impressions: Service Date/Time: Wednesday, April 05, 2017 16:28 - CONCLUSION: Soft tissue swelling without fracture or periosteal reaction. Benton Hidalgo MD Myocardial Perfusion Scan Nuc Med 04/05/17 0000 Signed Impressions: Service Date/Time: Wednesday, April 05, 2017 14:29 - CONCLUSION: No appreciable ischemia. RISK CATEGORY: Low (<1%% Annual Mortality Rate) K. Luke Ratliff MD Lower Extremity Ultrasound 04/05/17 0000 Signed Impressions: Service Date/Time: Wednesday, April 05, 2017 10:30 - CONCLUSION: Bilateral DVT. Anna Ratliff MD Lower Extremity MRI 04/05/17 0000 Signed Impressions: Service Date/Time: Wednesday, April 05, 2017 16:42 - CONCLUSION: Edematous soft tissues of the left leg. No abscess or osteomyelitis. Benton Hidalgo MD Procedures None Other Results Laboratory Tests Test 04/03/17 09:00 04/03/17 10:15 04/07/17 15:25 04/09/17 05:20 Blood Urea Nitrogen 12 MG/DL Creatinine 1.15 MG/DL Random Glucose 81 MG/DL Total Protein 8.3 GM/DL Albumin 2.5 GM/DL Calcium Level 8.8 MG/DL Magnesium Level 1.9 MG/DL Alkaline Phosphatase 125 U/L Aspartate Amino Transf (AST/SGOT) 44 U/L Alanine Aminotransferase (ALT/SGPT) 27 U/L Total Bilirubin 0.9 MG/DL Sodium Level 136 MEQ/L Potassium Level 5.7 MEQ/L Chloride Level 102 MEQ/L Carbon Dioxide Level 25.9 MEQ/L Total Creatine Kinase 224 U/L Creatine Kinase MB 2.0 NG/ML Troponin I LESS THAN 0.02 NG/ML Thyroid Stimulating Hormone 3rd Gen 3.880 uIU/ML Urine Color YELLOW Urine Turbidity HAZY Urine pH 5.5 Urine Specific [place] 1.012 Urine Protein 30 mg/dL Urine Glucose (UA) NEG mg/dL Urine Ketones NEG mg/dL Urine Occult Blood MOD Urine Nitrite POS Urine Bilirubin NEG Urine Urobilinogen LESS THAN 2.0 MG/DL Urine Leukocyte Esterase LARGE Urine RBC 4 /hpf Urine WBC 67 /hpf Urine WBC Clumps FEW Urine Squamous Epithelial Cells 1 /hpf Urine Calcium Oxalate Crystals MOD /hpf Urine Bacteria MANY /hpf Urine Mucus FEW /lpf Microscopic Urinalysis Comment CULTURE INDICATED Nasal Screen MRSA (PCR) MRSA NOT DETECTED B-Type Natriuretic Peptide 2018 PG/ML Test 04/11/17 04:00 04/11/17 12:07 04/12/17 04:12 04/13/17 04:17 Activated Partial Thromboplast Time 56.0 SEC Neutrophils (%) (Auto) 54.9 % Lymphocytes (%) (Auto) 24.2 % Monocytes (%) (Auto) 14.6 % Eosinophils (%) (Auto) 5.9 % Basophils (%) (Auto) 0.4 % Neutrophils # (Auto) 2.9 TH/MM3 Lymphocytes # (Auto) 1.3 TH/MM3 Monocytes # (Auto) 0.8 TH/MM3 Eosinophils # (Auto) 0.3 TH/MM3 Basophils # (Auto) 0.0 TH/MM3 CBC Comment DIFF FINAL Differential Comment Blood Urea Nitrogen 12 MG/DL Creatinine 0.82 MG/DL Random Glucose 118 MG/DL Calcium Level 8.7 MG/DL Sodium Level 139 MEQ/L Potassium Level 3.3 MEQ/L Chloride Level 96 MEQ/L Carbon Dioxide Level 36.3 MEQ/L Anion Gap 7 MEQ/L Estimat Glomerular Filtration Rate 112 ML/MIN White Blood Count 5.7 TH/MM3 Red Blood Count 5.24 MIL/MM3 Hemoglobin 15.3 GM/DL Hematocrit 45.5 % Mean Corpuscular Volume 86.9 FL Mean Corpuscular Hemoglobin 29.3 PG Mean Corpuscular Hemoglobin Concent 33.7 % Red Cell Distribution Width 16.0 % Platelet Count 264 TH/MM3 Mean Platelet Volume 8.4 FL Prothrombin Time 39.1 SEC Prothromb Time International Ratio 3.9 RATIO Objective Remarks GENERAL: No acute distress a this time. CARDIOVASCULAR: Regular rate and irregular rhythm without murmurs, gallops, or rubs. RESPIRATORY: decreased breath sounds no wheezing or crackles. GASTROINTESTINAL: Abdomen soft, non-tender, nondistended. MUSCULOSKELETAL: Left lower extremity with 7 cm ulcer which has eschar tissue in it, right lower extremity with 10 cm ulcer which show granulation healing NEURO: mumbling awake, moves all extremities Medications and IVs Current Medications Medications (Trade) Dose Ordered Sig/Deacon Route Start Time Stop Time Status Last Admin (NS Flush) 2 ml UNSCH PRN IV FLUSH 04/03/17 11:00 (NS Flush) 2 ml BID IV FLUSH 04/03/17 21:00 04/13/17 08:30 (Tylenol) 650 mg Q4H PRN PO 04/03/17 11:00 (Cardizem) 30 mg QID PO 04/03/17 13:00 04/13/17 08:29 (Ecotrin Ec) 81 mg DAILY PO 04/03/17 13:00 04/13/17 08:30 Ceftriaxone Sodium 1000 mg/ Sodium Chloride 100 ml @ 200 mls/hr Q24H IV 04/04/17 15:00 1/27/18 15:24 Azithromycin 500 mg/Sodium Chloride 250 ml @ 250 mls/hr Q24H IV 04/04/17 14:00 04/12/17 14:07 (Coreg) 6.25 mg Q12HR PO 04/05/17 11:00 04/13/17 08:30 (Prinivil) 2.5 mg DAILY PO 04/06/17 09:00 04/13/17 08:29 Pharmacy Profile Note 0 ml @ 0 mls/hr UNSCH OTHER 04/05/17 10:30 (Lasix Inj) 40 mg BID@09,18 IV PUSH 04/05/17 18:00 04/13/17 08:29 (Pill Splitter) 1 ea UNSCH PRN OTHER 04/05/17 11:00 (Ultram) 50 mg Q6H PRN PO 04/05/17 12:15 04/07/17 03:28 (Coumadin) 5 mg DAILY@1600 PO 04/05/17 16:00 Future Hold 04/12/17 15:26 (Gentamicin 0.1% Cream) 1 applic DAILY TOPICAL 04/07/17 09:00 04/13/17 08:28 (Santyl Oint) 1 applic DAILY TOPICAL 04/07/17 09:00 04/13/17 08:28 (Colace) 100 mg BID PO 04/07/17 09:00 04/13/17 08:30 (Milk Of Magnesia Liq) 30 ml Q6H PRN PO 04/07/17 01:30 04/12/17 11:14 Miscellaneous Information Patient in critical care unit? Ass... Q361D .XX 04/07/17 21:30 04/07/17 21:30 (Duoneb Neb) 1 ampule Q4HR NEB PRN INH 04/12/17 11:45 (Fleets Enema (Adult)) 133 ml UNSCH PRN RECTAL 04/12/17 17:00 A/P Assessment and Plan Due to Chest X ray that showed right lobe and base airspace disease was started on Rocephin and Azithromycin, discussed with wound care about his Left leg necrotic wound, consulted podiatry specialist, 2D echocardiogram EF 15%, service specialist following, Bilateral leg US with bilateral DVT, already on Warfarin started by Cardiology for Atrial Fibrillation, Heparin drip as per Podiatry specialist, on hold for I and D, Patient refused blood thinners, Palliative care and Psychiatry following, was transferred to Intensive Care Unit due to Respiratory failure, on non rebreather mask, Poor prognosis, new Echocardiogram showed EF 20 to 25%, on CTA Large Bullous lesions at the right lung apex measuring 9 cm in diameter with a small amount of internal fluid and surrounding lung consolidation, Additional patchy airspace disease at both bases, Small bilateral pleural effusions, Moderate to severe centrilobular emphysema as well, consulted web application dev specialist. Atrial fibrillation with RVR Bilateral DVT in lower extremity -CHADSVASC2 score 2 (age and CHF.). heparin and Warfarin. INR 3.9 on hold Warfarin. Community-acquired pneumonia showed on a chest x-ray, Minimal airspace disease in right midlung and right base continue Rocephin, Azithromycin, bronchodilator, Mucolytic, incentive spirometry , Pulmonary following recommended high flow oxygen through nasal cannula. CHF exacerbation -Chest x-ray shows minimal left airspace disease in the mid lung. -Lasix 40 mg IV BID. Lisinopril, Coreg and Aspirin. continue diuresis. UTI with Escherichia coli/Klebsiella Sensitive to ceftriaxone Chronic lower extremity edema and wounds -Patient is noncompliant. Wound care following. Right mid and lower lobe pneumonia with respiratory failure -Combination of CHF and COPD. -Continue with oxygen high flow. DVT prophylaxis Warfarin. Coagulopathy secondary to Warfarin on hold INR 3.9 Discharge Planning Once cleared by Specialists. Nahun Yañez MD Apr 13, 2017 12:34
[2017-04-13] MEDS: AZITHROMYCIN INJ 500 MG in SODIUM CHLOR 0.9% 250 ML INJ 250 ML IV SCH (13:44)
[2017-04-13 14:16] LABS: BICARBONATE 34.8 MEQ/L (21.0-32.0); CREATININE 0.79 MG/DL (0.60-1.30)
[2017-04-13] MEDS: cefTRIAXone INJ 1,000 MG in SODIUM CHLORIDE 0.9% INJ 100 ML IV SCH (15:43)
[2017-04-13] MEDS: traMADol HCL 50 MG TAB PO PRN (23:54)
[2017-04-14] VITALS (16 sets, daily range): BP systolic 95–110; BP diastolic 59–71; PULSE 74–100; RESP 12–27; TEMP 97.7–98.4; O2SAT 90–95
--- NOTE | 2017-04-14 08:35 | RADRPT ---
EXAM DATE/TIME: 04/14/2017 07:56 [facility] COMPARISON: CHEST SINGLE AP, April 07, 2017, 9:44. INDICATIONS : Shortness of breath. MEDICAL HISTORY : Congestive heart failure. lower extremity edema SURGICAL HISTORY : None. ENCOUNTER: Subsequent ACUITY: 1 week PAIN SCORE: 0/10 LOCATION: Bilateral chest FINDINGS: Improved aeration in the left lower lung zone. Persistent patchy airspace disease in the right lower lung zone and right perihilar upper lobe. Cardiomediastinal contours are stable. Remainder of the exa m is unchanged. CONCLUSION: 1. Pulmonary edema pattern with improved aeration of the left lower lung zone. Kwaku Vences MD on April 14, 2017 at 8:30 Board Certified Radiologist. This report was verified electronically.
[2017-04-14] MEDS: DOCUSATE SODIUM 100 MG CAP PO SCH ×2 (09:00→20:59)
[2017-04-14] MEDS: LISINOPRIL 5 MG TAB PO SCH (09:00)
[2017-04-14] MEDS: FUROSEMIDE 40 MG/4 ML VIAL IV PUSH SCH ×2 (09:00→18:00)
[2017-04-14] MEDS: DILTIAZEM HCL 30 MG TAB PO SCH ×4 (09:57→20:59)
[2017-04-14] MEDS: ASPIRIN EC 81 MG TABEC PO SCH (09:57)
[2017-04-14] MEDS: CARVEDILOL 6.25 MG TAB PO SCH ×2 (09:57→20:59)
[2017-04-14] MEDS: COLLAGENASE OINT 30 GM TUBE TOPICAL SCH (09:58)
[2017-04-14] MEDS: SODIUM CHLORIDE 0.9% FLUSH 10 ML FLUSH IV FLUSH SCH ×2 (09:58→20:59)
[2017-04-14] MEDS: GENTAMICIN SULFATE 0.1% CREAM 15 GM TOPICAL SCH (09:58)
[2017-04-14] MEDS: AZITHROMYCIN INJ 500 MG in SODIUM CHLOR 0.9% 250 ML INJ 250 ML IV SCH (13:27)
[2017-04-14] MEDS: cefTRIAXone INJ 1,000 MG in SODIUM CHLORIDE 0.9% INJ 100 ML IV SCH (14:43)
[2017-04-14 15:42] LABS: INTERNATIONAL NORMALIZED RATIO 2.6 RATIO; PROTHROMBIN TIME - PATIENT 25.9 SEC (9.8-11.6)
--- NOTE | 2017-04-14 16:12 | HHI.HCPN ---
Reason for visit a. To assist with evaluation and management of symptoms including: Shortness of breath, debility. b. To assist medical decision maker(s) with: better understanding of current medical conditions; weighing benefits/burdens of medical treatment options; making medical treatment decisions. . Subjective/Interval History Palliative care follow-up for further clarifications of goals of care. Patient seen in medical ICU. Currently on high flow nasal cannula/heat treater apprentice at 20 L 50% FiO2. Patient alert and oriented x self, place and situation. irritable with interactions. However, somewhat more receptive to palliative care visit. Patient denies any pain, shortness of breath or abdominal discomfort. Endorsing dyspnea at rest and on physical exertion. Chest x-ray today revealing improved aeration of the left lower lung. Pulmonology following. Patient reports that appetite remains good. Reviewed goals of care with patient. Shared concerns of high oxygen requirements, reviewed overall poor prognosis given end-stage CHF, COPD. Patient tells me that he was diagnosed with CHF in 2001, reviewed likely trajectory of illness to include progressive decline with multiple exacerbations. Reviewed disposition, patient tells me that he wants to go home. Reviewed PT recommendations of care home facility for physical strengthening. Patient tells me that he is not going to any alf, he wishes to go home. Reviewed with patient that given high oxygen requirements he is unable to be discharge home at this time, however, hospice is an option given poor prognosis. Reviewed hospice philosophy and benefits. Patient tells me that his mother under hospice services. Patient verbalized not being interested in hospice at this time. Goals remain aggressive. Received phone call from patient's sister Clementine Barreto. Returned telephone call and left message in voicemail. Case discussed with bedside NAFISA Thompson. . Family/friend interactions See interval note. . Advance Directives Living Will: Never completed Health Care Surrogate: Never completed Durable Power of Fueler: Never completed Advance Directive Specifics Health Care Surrogate(s): No advance directives completed. Patient is single, no children. Parents are . Patient has 2 siblings. As per [place] statute, healthcare proxy decision maker falls to the majority of siblings who are reasonably available for consultation. . Significant change in goals: Goals of care remain aggressive. . Objective Vital Signs Date Time Temp Pulse Resp B/P (MAP) Pulse Ox O2 Delivery O2 Flow Rate FiO2 1/29/18 14:00 85 04/14/17 12:00 85 04/14/17 12:00 97.7 85 25 99/64 (76) 91 04/14/17 10:35 91 High Flow Nasal Cannula 20.00 50 04/14/17 10:00 100 04/14/17 09:20 92 Nasal Cannula 5.00 04/14/17 08:18 93 High Flow Nasal Cannula 20.00 50 04/14/17 08:00 96 Nasal Cannula 20.00 55 04/14/17 08:00 89 04/14/17 08:00 98.4 89 27 109/71 (84) 95 04/14/17 06:00 92 04/14/17 04:00 90 04/14/17 04:00 98.2 90 17 110/70 (83) 92 04/14/17 02:00 85 04/14/17 00:54 16 04/14/17 00:00 98.3 82 16 108/66 (80) 94 04/14/17 00:00 82 04/13/17 22:00 81 04/13/17 20:00 98.4 79 18 98/73 (81) 96 04/13/17 20:00 93 Nasal Cannula 20.00 55 04/13/17 20:00 79 04/13/17 19:06 95 High Flow Nasal Cannula 20.00 55 04/13/17 18:00 89 Intake & Output 04/14/17 04/14/17 07:00 19:00 Intake Total 240 ml Output Total 950 ml Balance -710 ml Intake Oral 240 ml Output Urine Total 950 ml # Bowel Movements 0 Physical Exam CONSTITUTIONAL/GENERAL: This is an adequately nourished patient, in no apparent distress. Irritable. TUBES/LINES/DRAINS: PIV's, high flow nasal cannula. SKIN: No jaundice, rashes, Skin temperature appropriate. Not diaphoretic. Wounds reported to bilateral lower extremities, wrapped in Kerlix. Dressing dry , intact. HEAD: Atraumatic. Normocephalic. EYES: Pupils equal and round and reactive. Extraocular motions intact. No scleral icterus. No injection or drainage. ENT: Hearing grossly normal. Nose without bleeding or purulent drainage. Moist oral mucosa. Poor dentition. NECK: Trachea midline. Supple, nontender. CARDIOVASCULAR: Irregular rate and rhythm without murmurs. Bilateral lower extremity edema. RESPIRATORY/CHEST: Symmetric, even, unlabored. Scattered inspiratory crackles bilaterally. GASTROINTESTINAL: Abdomen soft, large, round. No guarding. Bowel sounds present. Unable to appreciate hepatomegaly secondary to body habitus. GENITOURINARY: Without palpable bladder distension. MUSCULOSKELETAL: Extremities without clubbing, cyanosis. No mottling or clubbing. NEUROLOGICAL: Awake and alert. Verbal. Motor and sensory grossly within normal limits. Follows commands. Moves all extremities. PSYCHIATRIC: Irritable. . Diagnostic Tests Laboratory Laboratory Tests Test 04/12/17 04:12 04/13/17 04:17 04/13/17 13:40 04/14/17 14:38 White Blood Count 5.7 TH/MM3 (4.0-11.0) Red Blood Count 5.24 MIL/MM3 (4.50-5.90) Hemoglobin 15.3 GM/DL (13.0-17.0) Hematocrit 45.5 % (39.0-51.0) Mean Corpuscular Volume 86.9 FL (80.0-100.0) Mean Corpuscular Hemoglobin 29.3 PG (27.0-34.0) Mean Corpuscular Hemoglobin Concent 33.7 % (32.0-36.0) Red Cell Distribution Width 16.0 % (11.6-17.2) Platelet Count 264 TH/MM3 (150-450) Mean Platelet Volume 8.4 FL (7.0-11.0) Prothrombin Time 24.7 SEC (9.8-11.6) 39.1 SEC (9.8-11.6) 25.9 SEC (9.8-11.6) Prothromb Time International Ratio 2.4 RATIO 3.9 RATIO 2.6 RATIO Blood Urea Nitrogen 17 MG/DL (7-18) Creatinine 0.79 MG/DL (0.60-1.30) Random Glucose 124 MG/DL (74-106) Calcium Level 9.0 MG/DL (8.5-10.1) Sodium Level 138 MEQ/L (136-145) Potassium Level 3.6 MEQ/L (3.5-5.1) Chloride Level 96 MEQ/L (98-107) Carbon Dioxide Level 34.8 MEQ/L (21.0-32.0) Anion Gap 7 MEQ/L (5-15) Estimat Glomerular Filtration Rate 117 ML/MIN (>89) Result Diagram: 04/12/17 0412 04/13/17 1340 Imaging Last 48 hours Impressions Chest X-Ray 04/14/17 0800 Signed Impressions: Service Date/Time: Friday, April 14, 2017 07:56 - CONCLUSION: 1. Pulmonary edema pattern with improved aeration of the left lower lung zone. Kwaku Vences MD Assessment and Plan Disease Oriented Problem List: (1) Respiratory failure (2) Atrial fibrillation (3) Leg ulcer, left (4) Ulcer of right leg (5) DVT (deep venous thrombosis) (6) PNA (pneumonia) (7) Acute exacerbation of CHF (congestive heart failure) (8) UTI (urinary tract infection) (9) Hyperkalemia Symptom Scale: (1) Dyspnea 0-10 Scale: Unable to quantify Comment: Currently on a nonrebreather mask at 15 L. High risk for intubation and mechanical ventilation. (2) Pain 0-10 Scale: Unable to quantify Comment: Multiple wounds to bilateral lower extremities. (3) Edema 0-10 Scale: Unable to quantify Comment: Bilateral lower extremities edema. Pertinent Non-Medical Issues Psychosocial: Patient is single. No children. [employer] , disabled secondary to PTSD. Patient was born and raised in [place]. Highest level of education is high school. Spiritual: No scientology affiliation. Legal: No Advance directives completed. Ethical issues impacting care: No ethical issues identified. . Important Contacts Sister Clementine Barreto Brother Nolan Weinstein Cousin Kathie Saavedra . Prognosis Mr. Rocha is a 72-year-old male with a medical history significant for COPD, CHF, hypertension, hyperlipidemia, poor medication compliance. Patient presented to ED on 04/03/17 via EMS for evaluation of bilateral lower extremity edema and wounds. Patient admitted for further management of UTI, pneumonia, CHF exacerbation, A. fib with RVR. Clinical course complicated by respiratory failure, increased oxygen requirement. Patient with advanced cardiac disease, EF 15%. Patient's overall prognosis is poor for a prolong survival. He remains a high risk for further complications, continue decline and . High risk for intubation and mechanical ventilation. . Code Status: Full Code Plan * CODE STATUS: Full code. * HEALTHCARE DECISION-MAKING: Patient participating in medical decision-making, however, not very receptive to goals of care conversation with palliative care. Patient has been seen by psychiatry, deemed capacitated for medical decision- making. No advance directives completed. Patient is single, no children, parents are . As per [place] statute, healthcare proxy decision making falls to the majority of patient's siblings for which he has 2. Sister Clementine Barreto and brother Nolan Weinstein. (Brother Jacob Tipton previously listed as contact is now ). Patient declined assistance with completion of designation of healthcare surrogate. * GOALS OF CARE: 04/14/17 -Goals of care remain aggressive. Patient somewhat more receptive to goals of care conversation today, Shared concerns of high oxygen requirements, reviewed overall poor prognosis given end-stage CHF, COPD. Reviewed likely trajectory of illness to include progressive decline with multiple exacerbations. Reviewed disposition, patient tells me that he wants to go home. Reviewed PT recommendations of care home facility for physical strengthening. Patient tells me that he is not going to any alf, he wishes to go home. Reviewed with patient that given high oxygen requirements he is unable to be discharge home at this time, however, hospice is an option given overall poor prognosis. Reviewed hospice philosophy and benefits. Patient tells me that he is familiar with hospice as his mother under their services. Patient verbalized not being interested in hospice at this time. Goals remain aggressive. * SYMPTOMS: = Dyspnea: Secondary to CHF exacerbation, COPD. Bilateral lower extremity DVT, CTA negative for PE. Worsening respiratory status now requiring high flow nasal cannula/heat treater apprentice at 20 L 50% FiO2. High risk for intubation and mechanical ventilation. Pulmonology following. = Pain: Secondary to bilateral lower extremities wound/cellulitis. Tramadol available as needed. = Edema: Acute on chronic to bilateral lower extremities. Currently on Lasix. * Case discussed with bedside RN. * Palliative care contact information has been provided to patient and family. * Palliative care will continue to follow-up as needed for further clarifications of goals of care patient's clinical course continues to evolve. . Time Spent Total Floor Time (mins): 28 (Total time to include review medical records, physical exam, goals of care conversation with patient, case discussion with bedside RN.) >50% Counseling/Coord of Care: Yes Attestation To help prompt me to consider important information that might be impacting today's encounter and assessment, information from prior notes written by myself or my colleagues may have been "brought forward" into today's note. My signature on this note, however, is an attestation that I personally performed the exam, history, and/or decision-making noted today, and, unless otherwise indicated, the interactions with patient, family, and staff as well as the review of records all occurred today. I also attest that the listed assessment and stated plan reflect my best clinical judgment today based on the combination of historical information, prior notes, and today's exam/ interactions. When time spent is documented, it refers only to time spent today by the signer, or if indicated, combined time spent today by collaborating physician/nurse practitioner. Areli Dunaway Apr 14, 2017 16:12
--- NOTE | 2017-04-14 16:40 | HHI.PR ---
Subjective Remarks Following patient with Respiratory failure CHF exacerbation, Mostly mumbling direct care specialist following, dermatology specialist, Psychiatry specialist consulted 04/10: Seen in his bedroom, stable dermatology specialist following recommended to continue diuresis geological specialist following, with Diagnosis of Acute on chronic respiratory failure, CHF, COPD, Atrial Fibrillation, recommended to continue oxygen, Bronchodilators, high flow oxygen by nasal cannula 04/11: Patient discussed with nurse, no changes in his condition, as per Cardiology to continue diuresis Aspirin, Coreg and Lisinopril, PT eval asked by Cardiology. 04/12: Stable in his bedroom seen with nurse Miss Blanton, INR therapeutic, discontinued Heparin by dermatology specialist, recommended to continue diuresis, geological specialist following not yet cleared for discharge by specialists, has Constipation, given lactulose, Glycerine suppository and fleet enema if needed. 04/13: Seen in his bedroom, geological specialist Doctor Alarcon following, improving clinically. continue diuresis negative balance of liquids but continue on high oxygen flow. 04/14: No complaint by patient, no nausea, vomit or diarrhea. discussed with nurse continue present care. Objective Vital Signs Date Time Temp Pulse Resp B/P (MAP) Pulse Ox O2 Delivery O2 Flow Rate FiO2 04/14/17 14:00 85 04/14/17 12:00 85 04/14/17 12:00 97.7 85 25 99/64 (76) 91 04/14/17 10:35 91 High Flow Nasal Cannula 20.00 50 04/14/17 10:00 100 04/14/17 09:20 92 Nasal Cannula 5.00 04/14/17 08:18 93 High Flow Nasal Cannula 20.00 50 04/14/17 08:00 96 Nasal Cannula 20.00 55 04/14/17 08:00 89 04/14/17 08:00 98.4 89 27 109/71 (84) 95 04/14/17 06:00 92 04/14/17 04:00 90 04/14/17 04:00 98.2 90 17 110/70 (83) 92 04/14/17 02:00 85 04/14/17 00:54 16 04/14/17 00:00 98.3 82 16 108/66 (80) 94 04/14/17 00:00 82 04/13/17 22:00 81 04/13/17 20:00 98.4 79 18 98/73 (81) 96 04/13/17 20:00 93 Nasal Cannula 20.00 55 04/13/17 20:00 79 04/13/17 19:06 95 High Flow Nasal Cannula 20.00 55 04/13/17 18:00 89 I/O 04/13/17 04/13/17 04/13/17 04/14/17 04/14/17 04/14/17 07:00 15:00 23:00 07:00 15:00 23:00 Intake Total 240 ml 250 ml 1100 ml 240 ml 250 ml 100 ml Output Total 1000 ml 1525 ml 950 ml Balance -760 ml 250 ml -425 ml -710 ml 250 ml 100 ml Intake Oral 240 ml 1000 ml 240 ml IV Total 250 ml 100 ml 250 ml 100 ml Output Urine Total 1000 ml 1525 ml 950 ml # Bowel Movements 2 0 Result Diagram: 04/12/17 0412 04/13/17 1340 Imaging Last Impressions Chest X-Ray 04/14/17 0800 Signed Impressions: Service Date/Time: Friday, April 14, 2017 07:56 - CONCLUSION: 1. Pulmonary edema pattern with improved aeration of the left lower lung zone. Kwaku Vences MD CT Angiography 04/07/17 0000 Signed Impressions: Service Date/Time: Friday, April 07, 2017 17:51 - CONCLUSION: 1. Negative for pulmonary embolus. 2. Large bullous lesion at the right lung apex measuring at least 9 cm in diameter with a small amount of internal fluid and surrounding lung consolidation. Additional patchy airspace disease at both bases. Small bilateral pleural effusions. Moderate to severe centrilobular emphysema as well. 3. Severe coronary calcifications. 4. Mild hilar and mediastinal adenopathy. Raleigh Naranjo MD Tibia/Fibula X-Ray 04/05/17 0000 Signed Impressions: Service Date/Time: Wednesday, April 05, 2017 16:28 - CONCLUSION: Soft tissue swelling without fracture or periosteal reaction. Benton Hidalgo MD Myocardial Perfusion Scan Nuc Med 04/05/17 0000 Signed Impressions: Service Date/Time: Wednesday, April 05, 2017 14:29 - CONCLUSION: No appreciable ischemia. RISK CATEGORY: Low (<1%% Annual Mortality Rate) KEric Ratliff MD Lower Extremity Ultrasound 04/05/17 0000 Signed Impressions: Service Date/Time: Wednesday, April 05, 2017 10:30 - CONCLUSION: Bilateral DVT. Anna Ratliff MD Lower Extremity MRI 04/05/17 0000 Signed Impressions: Service Date/Time: Wednesday, April 05, 2017 16:42 - CONCLUSION: Edematous soft tissues of the left leg. No abscess or osteomyelitis. Benton Hidalgo MD Procedures None Other Results Laboratory Tests Test 04/03/17 09:00 04/03/17 10:15 04/07/17 15:25 04/09/17 05:20 Blood Urea Nitrogen 12 MG/DL Creatinine 1.15 MG/DL Random Glucose 81 MG/DL Total Protein 8.3 GM/DL Albumin 2.5 GM/DL Calcium Level 8.8 MG/DL Magnesium Level 1.9 MG/DL Alkaline Phosphatase 125 U/L Aspartate Amino Transf (AST/SGOT) 44 U/L Alanine Aminotransferase (ALT/SGPT) 27 U/L Total Bilirubin 0.9 MG/DL Sodium Level 136 MEQ/L Potassium Level 5.7 MEQ/L Chloride Level 102 MEQ/L Carbon Dioxide Level 25.9 MEQ/L Total Creatine Kinase 224 U/L Creatine Kinase MB 2.0 NG/ML Troponin I LESS THAN 0.02 NG/ML Thyroid Stimulating Hormone 3rd Gen 3.880 uIU/ML Urine Color YELLOW Urine Turbidity HAZY Urine pH 5.5 Urine Specific [place] 1.012 Urine Protein 30 mg/dL Urine Glucose (UA) NEG mg/dL Urine Ketones NEG mg/dL Urine Occult Blood MOD Urine Nitrite POS Urine Bilirubin NEG Urine Urobilinogen LESS THAN 2.0 MG/DL Urine Leukocyte Esterase LARGE Urine RBC 4 /hpf Urine WBC 67 /hpf Urine WBC Clumps FEW Urine Squamous Epithelial Cells 1 /hpf Urine Calcium Oxalate Crystals MOD /hpf Urine Bacteria MANY /hpf Urine Mucus FEW /lpf Microscopic Urinalysis Comment CULTURE INDICATED Nasal Screen MRSA (PCR) MRSA NOT DETECTED B-Type Natriuretic Peptide 2018 PG/ML Test 04/11/17 04:00 04/11/17 12:07 04/12/17 04:12 04/13/17 13:40 Activated Partial Thromboplast Time 56.0 SEC Neutrophils (%) (Auto) 54.9 % Lymphocytes (%) (Auto) 24.2 % Monocytes (%) (Auto) 14.6 % Eosinophils (%) (Auto) 5.9 % Basophils (%) (Auto) 0.4 % Neutrophils # (Auto) 2.9 TH/MM3 Lymphocytes # (Auto) 1.3 TH/MM3 Monocytes # (Auto) 0.8 TH/MM3 Eosinophils # (Auto) 0.3 TH/MM3 Basophils # (Auto) 0.0 TH/MM3 CBC Comment DIFF FINAL Differential Comment White Blood Count 5.7 TH/MM3 Red Blood Count 5.24 MIL/MM3 Hemoglobin 15.3 GM/DL Hematocrit 45.5 % Mean Corpuscular Volume 86.9 FL Mean Corpuscular Hemoglobin 29.3 PG Mean Corpuscular Hemoglobin Concent 33.7 % Red Cell Distribution Width 16.0 % Platelet Count 264 TH/MM3 Mean Platelet Volume 8.4 FL Blood Urea Nitrogen 17 MG/DL Creatinine 0.79 MG/DL Random Glucose 124 MG/DL Calcium Level 9.0 MG/DL Sodium Level 138 MEQ/L Potassium Level 3.6 MEQ/L Chloride Level 96 MEQ/L Carbon Dioxide Level 34.8 MEQ/L Anion Gap 7 MEQ/L Estimat Glomerular Filtration Rate 117 ML/MIN Test 04/14/17 14:38 Prothrombin Time 25.9 SEC Prothromb Time International Ratio 2.6 RATIO Objective Remarks GENERAL: No acute distress a this time. CARDIOVASCULAR: Regular rate and irregular rhythm without murmurs, gallops, or rubs. RESPIRATORY: decreased breath sounds no wheezing or crackles. GASTROINTESTINAL: Abdomen soft, non-tender, nondistended. MUSCULOSKELETAL: Left lower extremity with 7 cm ulcer which has eschar tissue in it, right lower extremity with 10 cm ulcer which show granulation healing NEURO: mumbling awake, moves all extremities Medications and IVs Current Medications Medications (Trade) Dose Ordered Sig/[place] Route Start Time Stop Time Status Last Admin (NS Flush) 2 ml UNSCH PRN IV FLUSH 04/03/17 11:00 (NS Flush) 2 ml BID IV FLUSH 04/03/17 21:00 04/14/17 09:58 (Tylenol) 650 mg Q4H PRN PO 04/03/17 11:00 (Cardizem) 30 mg QID PO 04/03/17 13:00 04/14/17 13:27 (Ecotrin Ec) 81 mg DAILY PO 04/03/17 13:00 04/14/17 09:57 Ceftriaxone Sodium 1000 mg/ Sodium Chloride 100 ml @ 200 mls/hr Q24H IV 04/04/17 15:00 04/14/17 14:43 Azithromycin 500 mg/Sodium Chloride 250 ml @ 250 mls/hr Q24H IV 04/04/17 14:00 04/14/17 13:27 (Coreg) 6.25 mg Q12HR PO 04/05/17 11:00 04/14/17 09:57 (Prinivil) 2.5 mg DAILY PO 04/06/17 09:00 04/14/17 09:00 Pharmacy Profile Note 0 ml @ 0 mls/hr UNSCH OTHER 04/05/17 10:30 (Lasix Inj) 40 mg BID@18 IV PUSH 04/05/17 18:00 04/14/17 09:00 (Pill Splitter) 1 ea UNSCH PRN OTHER 04/05/17 11:00 (Ultram) 50 mg Q6H PRN PO 04/05/17 12:15 04/13/17 23:54 (Coumadin) 5 mg DAILY@1600 PO 04/05/17 16:00 Future Hold 04/12/17 15:26 (Gentamicin 0.1% Cream) 1 applic DAILY TOPICAL 04/07/17 09:00 04/14/17 09:58 (Santyl Oint) 1 applic DAILY TOPICAL 04/07/17 09:00 04/14/17 09:58 (Colace) 100 mg BID PO 04/07/17 09:00 04/14/17 09:00 (Milk Of Magnesia Liq) 30 ml Q6H PRN PO 04/07/17 01:30 04/12/17 11:14 Miscellaneous Information Patient in critical care unit? Ass... [id number] .XX 04/07/17 21:30 04/07/17 21:30 (Duoneb Neb) 1 ampule Q4HR NEB PRN INH 04/12/17 11:45 (Fleets Enema (Adult)) 133 ml UNSCH PRN RECTAL 04/12/17 17:00 A/P Assessment and Plan Due to Chest X ray that showed right lobe and base airspace disease was started on Rocephin and Azithromycin, discussed with wound care about his Left leg necrotic wound, consulted podiatry specialist, 2D echocardiogram EF 15%, dermatology specialist following, Bilateral leg US with bilateral DVT, already on Warfarin started by Cardiology for Atrial Fibrillation, Heparin drip as per Podiatry specialist, on hold for I and D, Patient refused blood thinners, Palliative care and Psychiatry following, was transferred to Intensive Care Unit due to Respiratory failure, on non rebreather mask, Poor prognosis, new Echocardiogram showed EF 20 to 25%, on CTA Large Bullous lesions at the right lung apex measuring 9 cm in diameter with a small amount of internal fluid and surrounding lung consolidation, Additional patchy airspace disease at both bases, Small bilateral pleural effusions, Moderate to severe centrilobular emphysema as well, consulted geological specialist. Atrial fibrillation with RVR Bilateral DVT in lower extremity -CHADSVASC2 score 2 (age and CHF.). heparin and Warfarin. INR 2.6 to re start Warfarin Community-acquired pneumonia showed on a chest x-ray, Minimal airspace disease in right midlung and right base continue Rocephin, Azithromycin, bronchodilator, Mucolytic, incentive spirometry , Pulmonary following recommended high flow oxygen through nasal cannula. CHF exacerbation -Chest x-ray shows minimal left airspace disease in the mid lung. -Lasix 40 mg IV BID. Lisinopril, Coreg and Aspirin. continue diuresis. UTI with Escherichia coli/Klebsiella Sensitive to ceftriaxone Chronic lower extremity edema and wounds -Patient is noncompliant. Wound care following. Right mid and lower lobe pneumonia with respiratory failure -Combination of CHF and COPD. -Continue with oxygen high flow. DVT prophylaxis Warfarin. Coagulopathy secondary to Warfarin INR 2.6 restart Warfarin, Pharmacy following. Discharge Planning Once cleared by Specialists. Nahun Yañez MD Apr 14, 2017 16:40
--- NOTE | 2017-04-14 16:41 | HHI.PR ---
Subjective Remarks LETHARGIC NO SOB O2 SAT 94% ON high flow nasal O2 Objective Vital Signs Date Time Temp Pulse Resp B/P (MAP) Pulse Ox O2 Delivery O2 Flow Rate FiO2 04/14/17 16:00 74 04/14/17 16:00 98.3 74 12 95/59 (71) 90 04/14/17 14:00 85 04/14/17 12:00 85 04/14/17 12:00 97.7 85 25 99/64 (76) 91 04/14/17 10:35 91 High Flow Nasal Cannula 20.00 50 04/14/17 10:00 100 04/14/17 09:20 92 Nasal Cannula 5.00 04/14/17 08:18 93 High Flow Nasal Cannula 20.00 50 04/14/17 08:00 96 Nasal Cannula 20.00 55 04/14/17 08:00 89 04/14/17 08:00 98.4 89 27 109/71 (84) 95 04/14/17 06:00 92 04/14/17 04:00 90 04/14/17 04:00 98.2 90 17 110/70 (83) 92 04/14/17 02:00 85 04/14/17 00:54 16 04/14/17 00:00 98.3 82 16 108/66 (80) 94 04/14/17 00:00 82 04/13/17 22:00 81 04/13/17 20:00 98.4 79 18 98/73 (81) 96 04/13/17 20:00 93 Nasal Cannula 20.00 55 04/13/17 20:00 79 04/13/17 19:06 95 High Flow Nasal Cannula 20.00 55 04/13/17 18:00 89 I/O 04/13/17 04/13/17 04/13/17 04/14/17 04/14/17 04/14/17 07:00 15:00 23:00 07:00 15:00 23:00 Intake Total 240 ml 250 ml 1100 ml 240 ml 250 ml 100 ml Output Total 1000 ml 1525 ml 950 ml Balance -760 ml 250 ml -425 ml -710 ml 250 ml 100 ml Intake Oral 240 ml 1000 ml 240 ml IV Total 250 ml 100 ml 250 ml 100 ml Output Urine Total 1000 ml 1525 ml 950 ml # Bowel Movements 2 0 Result Diagram: 04/12/17 0412 04/13/17 1340 Procedures None Objective Remarks GENERAL: SKIN: Warm and dry. HEAD: Atraumatic. Normocephalic. EYES: Pupils equal and round. No scleral icterus. No injection or drainage. ENT: No nasal bleeding or discharge. Mucous membranes pink and moist. NECK: Trachea midline. No JVD. CARDIOVASCULAR: Regular rate and rhythm. RESPIRATORY: No accessory muscle use. Clear to auscultation. Breath sounds equal bilaterally. GASTROINTESTINAL: Abdomen soft, non-tender, nondistended. Hepatic and splenic margins not palpable. MUSCULOSKELETAL: Extremities without clubbing, cyanosis, or edema. No obvious deformities. NEUROLOGICAL: Awake and alert. No obvious cranial nerve deficits. Motor grossly within normal limits. Five out of 5 muscle strength in the arms and legs. Normal speech. PSYCHIATRIC: Appropriate mood and affect; insight and judgment normal. Assessment and Plan Assessment and Plan RESPIRATORY FAILURE PNA, improving CHF DVT PLAN O2 NEEDED ANTIBX increase activity Tania Marin MD Apr 14, 2017 16:41
[2017-04-14] MEDS: traMADol HCL 50 MG TAB PO PRN (20:59)
[2017-04-15] VITALS (14 sets, daily range): BP systolic 96–111; BP diastolic 62–69; PULSE 85–102; RESP 17–31; TEMP 98–98.7; O2SAT 90–95
[2017-04-15 04:38] LABS: HEMATOCRIT 46.6 % (39.0-51.0); HEMOGLOBIN 15.6 GM/DL (13.0-17.0); MEAN CELL VOLUME 86.8 FL (80.0-100.0); MEAN CORPUSCULAR HGB CONC 33.5 % (32.0-36.0); MEAN PLATELET VOLUME 8.5 FL (7.0-11.0); PLATELET COUNT 276 TH/MM3 (150-450); RED BLOOD COUNT 5.37 MIL/MM3 (4.50-5.90); RED CELL DISTRIBUTION WIDTH 16.2 % (11.6-17.2); WHITE BLOOD COUNT 6.4 TH/MM3 (4.0-11.0)
[2017-04-15 04:44] LABS: INTERNATIONAL NORMALIZED RATIO 2.3 RATIO
[2017-04-15 05:01] LABS: BICARBONATE 33.5 MEQ/L (21.0-32.0); CALCIUM 8.8 MG/DL (8.5-10.1); CREATININE 0.99 MG/DL (0.60-1.30); MAGNESIUM 1.9 MG/DL (1.5-2.5)
[2017-04-15] MEDS: DOCUSATE SODIUM 100 MG CAP PO SCH ×2 (08:55→20:13)
[2017-04-15] MEDS: ASPIRIN EC 81 MG TABEC PO SCH (08:56)
[2017-04-15] MEDS: CARVEDILOL 6.25 MG TAB PO SCH ×2 (08:56→20:13)
[2017-04-15] MEDS: LISINOPRIL 5 MG TAB PO SCH (08:56)
[2017-04-15] MEDS: DILTIAZEM HCL 30 MG TAB PO SCH ×4 (08:56→20:13)
[2017-04-15] MEDS: COLLAGENASE OINT 30 GM TUBE TOPICAL SCH (08:57)
[2017-04-15] MEDS: SODIUM CHLORIDE 0.9% FLUSH 10 ML FLUSH IV FLUSH SCH ×2 (08:57→20:13)
[2017-04-15] MEDS: FUROSEMIDE 40 MG/4 ML VIAL IV PUSH SCH ×2 (08:57→18:23)
[2017-04-15] MEDS: GENTAMICIN SULFATE 0.1% CREAM 15 GM TOPICAL SCH (08:57)
[2017-04-15] MEDS ORDERED: MAGNESIUM SULFATE 1 GM PREMIX 100 ML IV SCH (12:30)
[2017-04-15] MEDS ORDERED: POTASSIUM CHLORIDE 20 MEQ CONTROLLED RELEASE TAB PO ONE (12:30)
--- NOTE | 2017-04-15 15:27 | HHI.PR ---
Subjective Remarks Following patient with Respiratory failure CHF exacerbation, Mostly mumbling housing development specialist following, leasing specialist, Psychiatry specialist consulted 04/10: Seen in his bedroom, stable leasing specialist following recommended to continue diuresis billing collections specialist following, with Diagnosis of Acute on chronic respiratory failure, CHF, COPD, Atrial Fibrillation, recommended to continue oxygen, Bronchodilators, high flow oxygen by nasal cannula 04/11: Patient discussed with nurse, no changes in his condition, as per Cardiology to continue diuresis Aspirin, Coreg and Lisinopril, PT eval asked by Cardiology. 04/12: Stable in his bedroom seen with nurse Miss Blanton, INR therapeutic, discontinued Heparin by leasing specialist, recommended to continue diuresis, billing collections specialist following not yet cleared for discharge by specialists, has Constipation, given lactulose, Glycerine suppository and fleet enema if needed. 04/13: Seen in his bedroom, billing collections specialist Doctor Agnes following, improving clinically. continue diuresis negative balance of liquids but continue on high oxygen flow. 04/14: No complaint by patient. discussed with nurse continue present care. 04/15: Seen in his bedroom, stable discussed with nurse Miss Sheppard no new issues, improving respiratory kemp, working with Physical Therapy, today was in sitting position. No nausea, vomit or diarrhea. Objective Vital Signs Date Time Temp Pulse Resp B/P (MAP) Pulse Ox O2 Delivery O2 Flow Rate FiO2 04/15/17 14:00 91 04/15/17 12:00 92 04/15/17 10:00 95 04/15/17 09:57 95 Nasal Cannula 6.00 04/15/17 08:00 86 04/15/17 08:00 94 Nasal Cannula 20.00 50 04/15/17 08:00 98.6 86 17 97/63 (74) 94 04/15/17 06:00 91 04/15/17 04:00 98.3 91 30 98/67 (77) 90 04/15/17 04:00 91 04/15/17 02:00 85 04/15/17 00:08 15 04/15/17 00:00 88 04/15/17 00:00 98.0 88 21 98/62 (74) 92 04/14/17 22:00 92 04/14/17 20:24 91 High Flow Nasal Cannula 20.00 50 04/14/17 20:00 90 Nasal Cannula 20.00 50 04/14/17 20:00 89 04/14/17 20:00 98.2 89 27 103/63 (76) 90 04/14/17 18:00 81 04/14/17 16:00 74 04/14/17 16:00 98.3 74 12 95/59 (71) 90 I/O 04/14/17 04/14/17 04/14/17 04/15/17 04/15/17 04/15/17 07:00 15:00 23:00 07:00 15:00 23:00 Intake Total 240 ml 250 ml 340 ml 200 ml Output Total 950 ml 750 ml 650 ml Balance -710 ml 250 ml -410 ml -450 ml Intake Oral 240 ml 240 ml 200 ml IV Total 250 ml 100 ml Output Urine Total 950 ml 750 ml 650 ml # Bowel Movements 0 0 0 Result Diagram: 04/15/17 0335 04/15/17 0335 Imaging Last Impressions Chest X-Ray 04/14/17 0800 Signed Impressions: Service Date/Time: Friday, April 14, 2017 07:56 - CONCLUSION: 1. Pulmonary edema pattern with improved aeration of the left lower lung zone. Kwaku Vences MD CT Angiography 04/07/17 0000 Signed Impressions: Service Date/Time: Friday, April 07, 2017 17:51 - CONCLUSION: 1. Negative for pulmonary embolus. 2. Large bullous lesion at the right lung apex measuring at least 9 cm in diameter with a small amount of internal fluid and surrounding lung consolidation. Additional patchy airspace disease at both bases. Small bilateral pleural effusions. Moderate to severe centrilobular emphysema as well. 3. Severe coronary calcifications. 4. Mild hilar and mediastinal adenopathy. Raleigh Naranjo MD Tibia/Fibula X-Ray 04/05/17 0000 Signed Impressions: Service Date/Time: Wednesday, April 05, 2017 16:28 - CONCLUSION: Soft tissue swelling without fracture or periosteal reaction. Benton Hidalgo MD Myocardial Perfusion Scan Nuc Med 04/05/17 0000 Signed Impressions: Service Date/Time: Wednesday, April 05, 2017 14:29 - CONCLUSION: No appreciable ischemia. RISK CATEGORY: Low (<1%% Annual Mortality Rate) Anna Ratliff MD Lower Extremity Ultrasound 04/05/17 0000 Signed Impressions: Service Date/Time: Wednesday, April 05, 2017 10:30 - CONCLUSION: Bilateral DVT. Anna Ratliff MD Lower Extremity MRI 04/05/17 0000 Signed Impressions: Service Date/Time: Wednesday, April 05, 2017 16:42 - CONCLUSION: Edematous soft tissues of the left leg. No abscess or osteomyelitis. Benton Hidalgo MD Procedures None Other Results Laboratory Tests Test 04/03/17 09:00 04/03/17 10:15 04/07/17 15:25 04/09/17 05:20 Blood Urea Nitrogen 12 MG/DL Creatinine 1.15 MG/DL Random Glucose 81 MG/DL Total Protein 8.3 GM/DL Albumin 2.5 GM/DL Calcium Level 8.8 MG/DL Magnesium Level 1.9 MG/DL Alkaline Phosphatase 125 U/L Aspartate Amino Transf (AST/SGOT) 44 U/L Alanine Aminotransferase (ALT/SGPT) 27 U/L Total Bilirubin 0.9 MG/DL Sodium Level 136 MEQ/L Potassium Level 5.7 MEQ/L Chloride Level 102 MEQ/L Carbon Dioxide Level 25.9 MEQ/L Total Creatine Kinase 224 U/L Creatine Kinase MB 2.0 NG/ML Troponin I LESS THAN 0.02 NG/ML Thyroid Stimulating Hormone 3rd Gen 3.880 uIU/ML Urine Color YELLOW Urine Turbidity HAZY Urine pH 5.5 Urine Specific [place] 1.012 Urine Protein 30 mg/dL Urine Glucose (UA) NEG mg/dL Urine Ketones NEG mg/dL Urine Occult Blood MOD Urine Nitrite POS Urine Bilirubin NEG Urine Urobilinogen LESS THAN 2.0 MG/DL Urine Leukocyte Esterase LARGE Urine RBC 4 /hpf Urine WBC 67 /hpf Urine WBC Clumps FEW Urine Squamous Epithelial Cells 1 /hpf Urine Calcium Oxalate Crystals MOD /hpf Urine Bacteria MANY /hpf Urine Mucus FEW /lpf Microscopic Urinalysis Comment CULTURE INDICATED Nasal Screen MRSA (PCR) MRSA NOT DETECTED B-Type Natriuretic Peptide 2018 PG/ML Test 04/11/17 04:00 04/11/17 12:07 04/15/17 03:35 Activated Partial Thromboplast Time 56.0 SEC Neutrophils (%) (Auto) 54.9 % Lymphocytes (%) (Auto) 24.2 % Monocytes (%) (Auto) 14.6 % Eosinophils (%) (Auto) 5.9 % Basophils (%) (Auto) 0.4 % Neutrophils # (Auto) 2.9 TH/MM3 Lymphocytes # (Auto) 1.3 TH/MM3 Monocytes # (Auto) 0.8 TH/MM3 Eosinophils # (Auto) 0.3 TH/MM3 Basophils # (Auto) 0.0 TH/MM3 CBC Comment DIFF FINAL Differential Comment White Blood Count 6.4 TH/MM3 Red Blood Count 5.37 MIL/MM3 Hemoglobin 15.6 GM/DL Hematocrit 46.6 % Mean Corpuscular Volume 86.8 FL Mean Corpuscular Hemoglobin 29.0 PG Mean Corpuscular Hemoglobin Concent 33.5 % Red Cell Distribution Width 16.2 % Platelet Count 276 TH/MM3 Mean Platelet Volume 8.5 FL Prothrombin Time 23.0 SEC Prothromb Time International Ratio 2.3 RATIO Blood Urea Nitrogen 22 MG/DL Creatinine 0.99 MG/DL Random Glucose 89 MG/DL Calcium Level 8.8 MG/DL Phosphorus Level 4.0 MG/DL Magnesium Level 1.9 MG/DL Sodium Level 136 MEQ/L Potassium Level 3.4 MEQ/L Chloride Level 96 MEQ/L Carbon Dioxide Level 33.5 MEQ/L Anion Gap 7 MEQ/L Estimat Glomerular Filtration Rate 90 ML/MIN Objective Remarks GENERAL: No acute distress a this time. CARDIOVASCULAR: Regular rate and irregular rhythm without murmurs, gallops, or rubs. RESPIRATORY: decreased breath sounds no wheezing or crackles. GASTROINTESTINAL: Abdomen soft, non-tender, nondistended. MUSCULOSKELETAL: Left lower extremity with 7 cm ulcer which has eschar tissue in it, right lower extremity with 10 cm ulcer which show granulation healing NEURO: mumbling awake, moves all extremities Medications and IVs Current Medications Medications (Trade) Dose Ordered Sig/Deacon Route Start Time Stop Time Status Last Admin (NS Flush) 2 ml UNSCH PRN IV FLUSH 04/03/17 11:00 (NS Flush) 2 ml BID IV FLUSH 04/03/17 21:00 04/15/17 08:57 (Tylenol) 650 mg Q4H PRN PO 04/03/17 11:00 (Cardizem) 30 mg QID PO 04/03/17 13:00 04/15/17 12:46 (Ecotrin Ec) 81 mg DAILY PO 04/03/17 13:00 04/15/17 08:56 (Coreg) 6.25 mg Q12HR PO 04/05/17 11:00 04/14/17 09:57 (Prinivil) 2.5 mg DAILY PO 04/06/17 09:00 04/14/17 09:00 Pharmacy Profile Note 0 ml @ 0 mls/hr UNSCH OTHER 04/05/17 10:30 (Lasix Inj) 40 mg BID@09,18 IV PUSH 04/05/17 18:00 04/15/17 08:57 (Pill Splitter) 1 ea UNSCH PRN OTHER 04/05/17 11:00 (Ultram) 50 mg Q6H PRN PO 04/05/17 12:15 04/14/17 20:59 (Coumadin) 5 mg DAILY@1600 PO 04/05/17 16:00 Future hold 04/12/17 15:26 (Gentamicin 0.1% Cream) 1 applic DAILY TOPICAL 04/07/17 09:00 04/15/17 08:57 (Santyl Oint) 1 applic DAILY TOPICAL 04/07/17 09:00 04/15/17 08:57 (Colace) 100 mg BID PO 04/07/17 09:00 04/15/17 08:55 (Milk Of Magnesia Liq) 30 ml Q6H PRN PO 04/07/17 01:30 04/12/17 11:14 Miscellaneous Information Patient in critical care unit? Ass... Q361D .XX 04/07/17 21:30 04/07/17 21:30 (Duoneb Neb) 1 ampule Q4HR NEB PRN INH 04/12/17 11:45 (Fleets Enema (Adult)) 133 ml UNSCH PRN RECTAL 04/12/17 17:00 A/P Assessment and Plan Due to Chest X ray that showed right lobe and base airspace disease was started on Rocephin and Azithromycin, discussed with wound care about his Left leg necrotic wound, consulted podiatry specialist, 2D echocardiogram EF 15%, leasing specialist following, Bilateral leg US with bilateral DVT, already on Warfarin started by Cardiology for Atrial Fibrillation, Heparin drip as per Podiatry specialist, on hold for I and D, Patient refused blood thinners, Palliative care and Psychiatry following, was transferred to Intensive Care Unit due to Respiratory failure, on non rebreather mask, Poor prognosis, new Echocardiogram showed EF 20 to 25%, on CTA Large Bullous lesions at the right lung apex measuring 9 cm in diameter with a small amount of internal fluid and surrounding lung consolidation, Additional patchy airspace disease at both bases, Small bilateral pleural effusions, Moderate to severe centrilobular emphysema as well, consulted billing collections specialist. Atrial fibrillation with RVR Bilateral DVT in lower extremity -CHADSVASC2 score 2 (age and CHF.). heparin and Warfarin. INR 2.3 Discussed with Pharmacy to re start Warfarin today. Community-acquired pneumonia showed on a chest x-ray, Minimal airspace disease in right midlung and right base was on Rocephin and Azithromycin for 10 days will stop antibiotics today and follow off antibiotics, continue bronchodilator, Mucolytic, incentive spirometry, Pulmonary following recommended high flow oxygen, Increased activity. CHF exacerbation -Chest x-ray shows minimal left airspace disease in the mid lung. -Lasix 40 mg IV BID. Lisinopril, Coreg and Aspirin. continue diuresis. UTI with Escherichia coli/Klebsiella Sensitive to ceftriaxone, treated. Chronic lower extremity edema and wounds -Patient is noncompliant. Wound care following. Right mid and lower lobe pneumonia with respiratory failure -Combination of CHF and COPD. -Continue with oxygen high flow. DVT prophylaxis Warfarin. Coagulopathy secondary to Warfarin INR 2.3 restart Warfarin, Pharmacy following. Discharge Planning Once cleared by Specialists. Nahun Yañez MD Apr 15, 2017 15:27
--- NOTE | 2017-04-15 15:28 | HHI.PR ---
Subjective Remarks LETHARGIC NO SOB O2 SAT 94% ON high flow nasal O2 Objective Vital Signs Date Time Temp Pulse Resp B/P (MAP) Pulse Ox O2 Delivery O2 Flow Rate FiO2 04/15/17 14:00 91 04/15/17 12:00 92 04/15/17 10:00 95 04/15/17 09:57 95 Nasal Cannula 6.00 04/15/17 08:00 86 04/15/17 08:00 94 Nasal Cannula 20.00 50 04/15/17 08:00 98.6 86 17 97/63 (74) 94 04/15/17 06:00 91 04/15/17 04:00 98.3 91 30 98/67 (77) 90 04/15/17 04:00 91 04/15/17 02:00 85 04/15/17 00:08 15 04/15/17 00:00 88 04/15/17 00:00 98.0 88 21 98/62 (74) 92 04/14/17 22:00 92 04/14/17 20:24 91 High Flow Nasal Cannula 20.00 50 04/14/17 20:00 90 Nasal Cannula 20.00 50 04/14/17 20:00 89 04/14/17 20:00 98.2 89 27 103/63 (76) 90 04/14/17 18:00 81 04/14/17 16:00 74 04/14/17 16:00 98.3 74 12 95/59 (71) 90 I/O 04/14/17 04/14/17 04/14/17 04/15/17 04/15/17 04/15/17 07:00 15:00 23:00 07:00 15:00 23:00 Intake Total 240 ml 250 ml 340 ml 200 ml Output Total 950 ml 750 ml 650 ml Balance -710 ml 250 ml -410 ml -450 ml Intake Oral 240 ml 240 ml 200 ml IV Total 250 ml 100 ml Output Urine Total 950 ml 750 ml 650 ml # Bowel Movements 0 0 0 Result Diagram: 04/15/1733404/15/17 033 Procedures None Objective Remarks GENERAL: SKIN: Warm and dry. HEAD: Atraumatic. Normocephalic. EYES: Pupils equal and round. No scleral icterus. No injection or drainage. ENT: No nasal bleeding or discharge. Mucous membranes pink and moist. NECK: Trachea midline. No JVD. CARDIOVASCULAR: Regular rate and rhythm. RESPIRATORY: No accessory muscle use. Clear to auscultation. Breath sounds equal bilaterally. GASTROINTESTINAL: Abdomen soft, non-tender, nondistended. Hepatic and splenic margins not palpable. MUSCULOSKELETAL: Extremities without clubbing, cyanosis, or edema. No obvious deformities. NEUROLOGICAL: Awake and alert. No obvious cranial nerve deficits. Motor grossly within normal limits. Five out of 5 muscle strength in the arms and legs. Normal speech. PSYCHIATRIC: Appropriate mood and affect; insight and judgment normal. Assessment and Plan Assessment and Plan RESPIRATORY FAILURE CHF DVT PLAN O2 NEEDED ANTIBX increase activity Tania Marin MD Apr 15, 2017 15:28
[2017-04-15] MEDS: WARFARIN SOD 5 MG TAB PO SCH (15:57)
[2017-04-16] VITALS (14 sets, daily range): BP systolic 95–119; BP diastolic 61–72; PULSE 86–99; RESP 20–34; TEMP 98–99.4; O2SAT 88–98
[2017-04-16 04:56] LABS: INTERNATIONAL NORMALIZED RATIO 1.8 RATIO; PROTHROMBIN TIME - PATIENT 17.9 SEC (9.8-11.6)
[2017-04-16] MEDS: FUROSEMIDE 40 MG/4 ML VIAL IV PUSH SCH (08:12)
[2017-04-16] MEDS: ASPIRIN EC 81 MG TABEC PO SCH (08:12)
[2017-04-16] MEDS: DOCUSATE SODIUM 100 MG CAP PO SCH ×2 (08:13→20:02)
[2017-04-16] MEDS: DILTIAZEM HCL 30 MG TAB PO SCH ×4 (08:13→20:02)
[2017-04-16] MEDS: CARVEDILOL 6.25 MG TAB PO SCH ×2 (08:13→20:02)
[2017-04-16] MEDS: LISINOPRIL 5 MG TAB PO SCH (08:14)
[2017-04-16] MEDS: SODIUM CHLORIDE 0.9% FLUSH 10 ML FLUSH IV FLUSH SCH ×2 (08:15→20:02)
[2017-04-16] MEDS: COLLAGENASE OINT 30 GM TUBE TOPICAL SCH (08:18)
[2017-04-16] MEDS: GENTAMICIN SULFATE 0.1% CREAM 15 GM TOPICAL SCH (08:18)
--- NOTE | 2017-04-16 08:30 | HHI.PR ---
Subjective Remarks The patient was resting in bed. He complained of some leg pain. He requested some lotion to help with his dry nostrils. He said he was breathing okay. Discussed with nursing at the bedside. Objective Vitals Vital Signs Date Time Temp Pulse Resp B/P (MAP) Pulse Ox O2 Delivery O2 Flow Rate FiO2 04/16/17 06:00 89 04/16/17 04:00 88 04/16/17 04:00 98.2 88 20 114/72 (86) 90 04/16/17 02:00 86 04/16/17 00:00 98.4 86 21 100/63 (75) 88 04/16/17 00:00 86 04/15/17 22:00 102 04/15/17 20:30 92 Nasal Cannula 4.00 04/15/17 20:00 98.0 92 22 96/62 (73) 91 04/15/17 20:00 92 04/15/17 20:00 91 Nasal Cannula 4.00 04/15/17 18:00 99 04/15/17 16:00 98.7 99 29 101/69 (80) 91 04/15/17 16:00 99 04/15/17 14:00 91 04/15/17 12:00 98.6 92 31 111/69 (83) 95 04/15/17 12:00 92 04/15/17 10:00 95 04/15/17 09:57 95 Nasal Cannula 6.00 I/O 04/15/17 04/15/17 04/15/17 04/16/17 04/16/17 04/16/17 06:59 14:59 22:59 06:59 14:59 22:59 Intake Total 200 ml 100 ml 240 ml 240 ml Output Total 650 ml 1000 ml 1150 ml Balance -450 ml 100 ml -760 ml -910 ml Intake Oral 200 ml 240 ml 240 ml IV Total 100 ml Output Urine Total 650 ml 1000 ml 1150 ml # Bowel Movements 0 0 0 Result Diagram: 04/15/1733404/15/17334 Imaging Last Impressions Chest X-Ray 04/14/17 0800 Signed Impressions: Service Date/Time: Friday, April 14, 2017 07:56 - CONCLUSION: 1. Pulmonary edema pattern with improved aeration of the left lower lung zone. Kwaku Vences MD CT Angiography 04/07/17 0000 Signed Impressions: Service Date/Time: Friday, April 07, 2017 17:51 - CONCLUSION: 1. Negative for pulmonary embolus. 2. Large bullous lesion at the right lung apex measuring at least 9 cm in diameter with a small amount of internal fluid and surrounding lung consolidation. Additional patchy airspace disease at both bases. Small bilateral pleural effusions. Moderate to severe centrilobular emphysema as well. 3. Severe coronary calcifications. 4. Mild hilar and mediastinal adenopathy. Raleigh Naranjo MD Tibia/Fibula X-Ray 04/05/17 0000 Signed Impressions: Service Date/Time: Wednesday, April 05, 2017 16:28 - CONCLUSION: Soft tissue swelling without fracture or periosteal reaction. Benton Hidalgo MD Myocardial Perfusion Scan Nuc Med 04/05/17 0000 Signed Impressions: Service Date/Time: Wednesday, April 05, 2017 14:29 - CONCLUSION: No appreciable ischemia. RISK CATEGORY: Low (<1%% Annual Mortality Rate) Anna Ratliff MD Lower Extremity Ultrasound 04/05/17 0000 Signed Impressions: Service Date/Time: Wednesday, April 05, 2017 10:30 - CONCLUSION: Bilateral DVT. Anna Ratliff MD Lower Extremity MRI 04/05/17 0000 Signed Impressions: Service Date/Time: Wednesday, April 05, 2017 16:42 - CONCLUSION: Edematous soft tissues of the left leg. No abscess or osteomyelitis. Benton Hidalgo MD Objective Remarks GENERAL: No acute distress. HEENT: NC, AT. CARDIOVASCULAR: No murmur appreciated. RESPIRATORY: decreased breath sounds, scattered rhonchi. GASTROINTESTINAL: Abdomen soft, non-tender, nondistended. MUSCULOSKELETAL: Left lower extremity with 7 cm ulcer which has eschar tissue in it, right lower extremity with 10 cm ulcer which shows granulation healing, currently bandaged. NEURO: Awake and alert, moves all extremities. PSYCH: Calm. Medications and IVs Current Medications Medications (Trade) Dose Ordered Sig/Deacon Route Start Time Stop Time Status Last Admin (NS Flush) 2 ml UNSCH PRN IV FLUSH 04/03/17 11:00 (NS Flush) 2 ml BID IV FLUSH 04/03/17 21:00 04/16/17 08:15 (Tylenol) 650 mg Q4H PRN PO 04/03/17 11:00 (Cardizem) 30 mg QID PO 04/03/17 13:00 04/16/17 08:13 (Ecotrin Ec) 81 mg DAILY PO 04/03/17 13:00 04/16/17 08:12 (Coreg) 6.25 mg Q12HR PO 04/05/17 11:00 04/14/17 09:57 (Prinivil) 2.5 mg DAILY PO 04/06/17 09:00 04/16/17 08:14 Pharmacy Profile Note 0 ml @ 0 mls/hr UNSCH OTHER 04/05/17 10:30 (Lasix Inj) 40 mg BID@09,18 IV PUSH 04/05/17 18:00 04/16/17 08:12 (Pill Splitter) 1 ea UNSCH PRN OTHER 04/05/17 11:00 (Ultram) 50 mg Q6H PRN PO 04/05/17 12:15 04/14/17 20:59 (Coumadin) 5 mg DAILY@1600 PO 04/05/17 16:00 Future hold 04/15/17 15:57 (Gentamicin 0.1% Cream) 1 applic DAILY TOPICAL 04/07/17 09:00 04/16/17 08:18 (Santyl Oint) 1 applic DAILY TOPICAL 04/07/17 09:00 04/16/17 08:18 (Colace) 100 mg BID PO 04/07/17 09:00 04/16/17 08:13 (Milk Of Magnesia Liq) 30 ml Q6H PRN PO 04/07/17 01:30 04/12/17 11:14 Miscellaneous Information Patient in critical care unit? Ass... Q361D .XX 04/07/17 21:30 04/07/17 21:30 (Duoneb Neb) 1 ampule Q4HR NEB PRN INH 04/12/17 11:45 (Fleets Enema (Adult)) 133 ml UNSCH PRN RECTAL 04/12/17 17:00 (Coumadin) 1 mg ONCE@1600 ONCE PO 04/16/17 16:00 04/16/17 16:01 A/P Assessment and Plan Acute respiratory failure/ Acute systolic CHF/ COPD The pt had right mid and lower lobe pneumonia, CHF and COPD. 2D echocardiogram with EF 20-25%. Cardiology consult appreciated. Stress test negative. CTA: Large bullous lesions at the right lung apex measuring 9 cm in diameter with a small amount of internal fluid and surrounding lung consolidation; Additional patchy airspace disease at both bases; Small bilateral pleural effusions; Moderate to severe centrilobular emphysema as well. Consulted pulmonology. S/p antibiotics. - continue high flow oxygen as needed. - change IV Lasix to PO regimen. - follow up with cardiology and pulmonology. - continue cardiac regimen. - continue bronchodilator, Mucolytic, incentive spirometry. - PT/ OT. Bilateral DVT US with bilateral DVT, already on Warfarin started by Cardiology for Atrial Fibrillation. - continue Coumadin with pharmacy assistance. Atrial fibrillation with RVR Cardiology consult appreciated. - Coumadin per pharmacy. - telemetry. Lower extremity ulcers Discussed with wound care about his left leg necrotic wound. Consulted podiatry. - wound care per podiatry. - diuresis. UTI with Escherichia coli/Klebsiella Sensitive to ceftriaxone. - treated. DVT prophylaxis: Warfarin Mitch Catherine DO Apr 16, 2017 08:29
[2017-04-16] MEDS: POTASSIUM CHLORIDE 20 MEQ CONTROLLED RELEASE TAB PO SCH (11:00)
[2017-04-16 11:55] LABS: BICARBONATE 39.9 MEQ/L (21.0-32.0); CALCIUM 9.6 MG/DL (8.5-10.1); CREATININE 0.89 MG/DL (0.60-1.30)
[2017-04-16] MEDS ORDERED: WARFARIN SOD 1 MG TAB PO ONE (16:00)
[2017-04-16] MEDS: WARFARIN SOD 5 MG TAB PO SCH (16:57)
[2017-04-16] MEDS: FUROSEMIDE 40 MG TAB PO SCH (16:58)
[2017-04-17] VITALS (14 sets, daily range): BP systolic 93–119; BP diastolic 60–72; PULSE 81–109; RESP 10–32; TEMP 98.2–99.8; O2SAT 88–100
[2017-04-17 06:10] LABS: HEMATOCRIT 48.4 % (39.0-51.0); HEMOGLOBIN 16.5 GM/DL (13.0-17.0); MEAN CELL VOLUME 86.2 FL (80.0-100.0); MEAN CORPUSCULAR HEMOGLOBIN 29.3 PG (27.0-34.0); MEAN PLATELET VOLUME 8.5 FL (7.0-11.0); PLATELET COUNT 282 TH/MM3 (150-450); RED BLOOD COUNT 5.62 MIL/MM3 (4.50-5.90); RED CELL DISTRIBUTION WIDTH 16.1 % (11.6-17.2); WHITE BLOOD COUNT 7.5 TH/MM3 (4.0-11.0)
[2017-04-17 06:17] LABS: INTERNATIONAL NORMALIZED RATIO 1.7 RATIO; PROTHROMBIN TIME - PATIENT 16.7 SEC (9.8-11.6)
[2017-04-17 06:36] LABS: BICARBONATE 30.4 MEQ/L (21.0-32.0); CALCIUM 9.6 MG/DL (8.5-10.1); CREATININE 0.73 MG/DL (0.60-1.30); MAGNESIUM 2.1 MG/DL (1.5-2.5)
--- NOTE | 2017-04-17 08:39 | HHI.PR ---
Subjective Remarks The pt complained of pain in his right lower extremity. He wanted pain medication for it. He said his breathing was fine. Discussed with nursing at the bedside. Objective Vitals Vital Signs Date Time Temp Pulse Resp B/P (MAP) Pulse Ox O2 Delivery O2 Flow Rate FiO2 04/17/17 06:00 102 04/17/17 04:00 99.8 98 20 102/64 (77) 94 04/17/17 04:00 98 04/17/17 02:00 92 04/17/17 00:00 98.9 90 25 116/70 (85) 100 04/17/17 00:00 90 04/16/17 23:05 96 Nasal Cannula 5.00 04/16/17 22:00 99 04/16/17 20:00 94 Nasal Cannula 6.00 04/16/17 20:00 99 04/16/17 20:00 99.4 99 34 119/69 (86) 94 04/16/17 18:00 91 04/16/17 16:00 98.3 97 26 95/61 (72) 93 04/16/17 16:00 97 04/16/17 14:00 94 04/16/17 12:00 98.5 96 25 108/68 (81) 94 04/16/17 12:00 96 04/16/17 10:04 94 Nasal Cannula 4.00 04/16/17 10:00 91 I/O 04/16/17 04/16/17 04/16/17 04/17/17 04/17/17 04/17/17 07:00 15:00 23:00 07:00 15:00 23:00 Intake Total 240 ml 225 ml 480 ml Output Total 1150 ml 450 ml 650 ml Balance -910 ml -225 ml -170 ml Intake Oral 240 ml 225 ml 480 ml Output Urine Total 1150 ml 450 ml 650 ml # Voids 2 # Bowel Movements 0 0 0 Result Diagram: 04/17/17 0555 04/17/17 0555 Imaging Last Impressions Chest X-Ray 04/14/17 0800 Signed Impressions: Service Date/Time: Friday, April 14, 2017 07:56 - CONCLUSION: 1. Pulmonary edema pattern with improved aeration of the left lower lung zone. Kwaku Vences MD CT Angiography 04/07/17 0000 Signed Impressions: Service Date/Time: Friday, April 07, 2017 17:51 - CONCLUSION: 1. Negative for pulmonary embolus. 2. Large bullous lesion at the right lung apex measuring at least 9 cm in diameter with a small amount of internal fluid and surrounding lung consolidation. Additional patchy airspace disease at both bases. Small bilateral pleural effusions. Moderate to severe centrilobular emphysema as well. 3. Severe coronary calcifications. 4. Mild hilar and mediastinal adenopathy. Raleigh Naranjo MD Tibia/Fibula X-Ray 04/05/17 0000 Signed Impressions: Service Date/Time: Wednesday, April 05, 2017 16:28 - CONCLUSION: Soft tissue swelling without fracture or periosteal reaction. Benton Hidalgo MD Myocardial Perfusion Scan Nuc Med 04/05/17 0000 Signed Impressions: Service Date/Time: Wednesday, April 05, 2017 14:29 - CONCLUSION: No appreciable ischemia. RISK CATEGORY: Low (<1%% Annual Mortality Rate) Anna Ratliff MD Lower Extremity Ultrasound 04/05/17 0000 Signed Impressions: Service Date/Time: Wednesday, April 05, 2017 10:30 - CONCLUSION: Bilateral DVT. Anna Ratliff MD Lower Extremity MRI 04/05/17 0000 Signed Impressions: Service Date/Time: Wednesday, April 05, 2017 16:42 - CONCLUSION: Edematous soft tissues of the left leg. No abscess or osteomyelitis. Benton Hidalgo MD Objective Remarks GENERAL: No acute distress. HEENT: NC, AT. CARDIOVASCULAR: No murmur appreciated. Tachycardic. RESPIRATORY: decreased breath sounds. GASTROINTESTINAL: Abdomen soft, non-tender, nondistended. MUSCULOSKELETAL: Left lower extremity with 7 cm ulcer which has eschar tissue in it, right lower extremity with 10 cm ulcer which shows granulation healing, currently bandaged. NEURO: Awake and alert, moves all extremities. PSYCH: Calm. Medications and IVs Current Medications Medications (Trade) Dose Ordered Sig/Deacon Route Start Time Stop Time Status Last Admin (NS Flush) 2 ml UNSCH PRN IV FLUSH 04/03/17 11:00 (NS Flush) 2 ml BID IV FLUSH 04/03/17 21:00 04/16/17 20:02 (Tylenol) 650 mg Q4H PRN PO 04/03/17 11:00 (Cardizem) 30 mg QID PO 04/03/17 13:00 04/16/17 20:02 (Ecotrin Ec) 81 mg DAILY PO 04/03/17 13:00 04/16/17 08:12 (Coreg) 6.25 mg Q12HR PO 04/05/17 11:00 04/14/17 09:57 (Prinivil) 2.5 mg DAILY PO 04/06/17 09:00 04/16/17 08:14 Pharmacy Profile Note 0 ml @ 0 mls/hr UNSCH OTHER 04/05/17 10:30 (Pill Splitter) 1 ea UNSCH PRN OTHER 04/05/17 11:00 (Ultram) 50 mg Q6H PRN PO 04/05/17 12:15 04/14/17 20:59 (Coumadin) 5 mg DAILY@1600 PO 04/05/17 16:00 Future hold 04/16/17 16:57 (Gentamicin 0.1% Cream) 1 applic DAILY TOPICAL 04/07/17 09:00 04/16/17 08:18 (Santyl Oint) 1 applic DAILY TOPICAL 04/07/17 09:00 04/16/17 08:18 (Colace) 100 mg BID PO 04/07/17 09:00 04/16/17 20:02 (Milk Of Magnesia Liq) 30 ml Q6H PRN PO 04/07/17 01:30 04/12/17 11:14 Miscellaneous Information Patient in critical care unit? Ass... Q361D .XX 04/07/17 21:30 04/07/17 21:30 (Duoneb Neb) 1 ampule Q4HR NEB PRN INH 04/12/17 11:45 (Fleets Enema (Adult)) 133 ml UNSCH PRN RECTAL 04/12/17 17:00 (Lasix) 40 mg BID@,18 PO 04/16/17 18:00 04/16/17 16:58 (KCl) 20 meq DAILY PO 04/16/17 09:15 04/16/17 11:00 (Coumadin) 1 mg ONCE@1600 ONCE PO 04/17/17 16:00 04/17/17 16:01 A/P Assessment and Plan Acute respiratory failure/ Acute systolic CHF/ COPD The pt had right mid and lower lobe pneumonia, CHF and COPD. 2D echocardiogram with EF 20-25%. Cardiology consult appreciated. Stress test negative. CTA: Large bullous lesions at the right lung apex measuring 9 cm in diameter with a small amount of internal fluid and surrounding lung consolidation; Additional patchy airspace disease at both bases; Small bilateral pleural effusions; Moderate to severe centrilobular emphysema as well. Consulted pulmonology. S/p antibiotics. - continue oxygen as needed. Wean as tolerated. - Lasix PO. - follow up with cardiology and pulmonology. - continue cardiac regimen. - continue bronchodilator, Mucolytic, incentive spirometry. - PT/ OT. - IS. Bilateral DVT US with bilateral DVT, already on Warfarin started by Cardiology for Atrial Fibrillation. - continue Coumadin with pharmacy assistance. Atrial fibrillation with RVR Cardiology consult appreciated. - Coumadin per pharmacy. - continue diltiazem. - telemetry. Lower extremity ulcers Discussed with wound care about his left leg necrotic wound. Consulted podiatry. - wound care per podiatry. - diuresis. UTI with Escherichia coli/Klebsiella Sensitive to ceftriaxone. - treated. DVT prophylaxis: Warfarin Discharge Planning Transfer to floor Mitch Catherine DO Apr 17, 2017 08:39
[2017-04-17] MEDS: DILTIAZEM HCL 30 MG TAB PO SCH ×5 (08:52→22:42)
[2017-04-17] MEDS: DOCUSATE SODIUM 100 MG CAP PO SCH ×2 (08:52→22:42)
[2017-04-17] MEDS: traMADol HCL 50 MG TAB PO PRN (08:52)
[2017-04-17] MEDS: ASPIRIN EC 81 MG TABEC PO SCH (08:53)
[2017-04-17] MEDS: CARVEDILOL 6.25 MG TAB PO SCH ×2 (08:53→22:42)
[2017-04-17] MEDS: POTASSIUM CHLORIDE 20 MEQ CONTROLLED RELEASE TAB PO SCH (08:53)
[2017-04-17] MEDS: SODIUM CHLORIDE 0.9% FLUSH 10 ML FLUSH IV FLUSH SCH ×2 (08:53→22:43)
[2017-04-17] MEDS: LISINOPRIL 5 MG TAB PO SCH (08:53)
[2017-04-17] MEDS: FUROSEMIDE 40 MG TAB PO SCH ×2 (08:53→18:36)
[2017-04-17] MEDS: GENTAMICIN SULFATE 0.1% CREAM 15 GM TOPICAL SCH (08:54)
[2017-04-17] MEDS: COLLAGENASE OINT 30 GM TUBE TOPICAL SCH (08:54)
[2017-04-17] MEDS ORDERED: WARFARIN SOD 1 MG TAB PO ONE (16:00)
[2017-04-17] MEDS: WARFARIN SOD 5 MG TAB PO SCH (18:35)
[2017-04-18] VITALS (12 sets, daily range): BP systolic 90–114; BP diastolic 55–80; PULSE 96–126; RESP 18–24; TEMP 97.1–99; O2SAT 88–100
[2017-04-18 05:05] LABS: HEMATOCRIT 46.2 % (39.0-51.0); HEMOGLOBIN 15.9 GM/DL (13.0-17.0); MEAN CELL VOLUME 87.3 FL (80.0-100.0); MEAN CORPUSCULAR HGB CONC 34.4 % (32.0-36.0); MEAN PLATELET VOLUME 8.6 FL (7.0-11.0); PLATELET COUNT 281 TH/MM3 (150-450); RED BLOOD COUNT 5.29 MIL/MM3 (4.50-5.90); WHITE BLOOD COUNT 7.9 TH/MM3 (4.0-11.0)
[2017-04-18 05:12] LABS: INTERNATIONAL NORMALIZED RATIO 2.1 RATIO; PROTHROMBIN TIME - PATIENT 20.8 SEC (9.8-11.6)
[2017-04-18] MEDS: DOCUSATE SODIUM 100 MG CAP PO SCH ×2 (08:54→21:45)
[2017-04-18] MEDS: ASPIRIN EC 81 MG TABEC PO SCH (08:55)
[2017-04-18] MEDS: MAGNESIUM HYDROXIDE SUSP 30 ML CUP PO PRN (08:55)
[2017-04-18] MEDS: SODIUM CHLORIDE 0.9% FLUSH 10 ML FLUSH IV FLUSH SCH ×2 (08:56→21:44)
[2017-04-18] MEDS: COLLAGENASE OINT 30 GM TUBE TOPICAL SCH (09:00)
[2017-04-18] MEDS: FUROSEMIDE 40 MG TAB PO SCH ×2 (09:00→18:24)
[2017-04-18] MEDS: LISINOPRIL 5 MG TAB PO SCH (09:00)
[2017-04-18] MEDS: POTASSIUM CHLORIDE 20 MEQ CONTROLLED RELEASE TAB PO SCH (09:00)
[2017-04-18] MEDS: CARVEDILOL 6.25 MG TAB PO SCH ×2 (09:00→21:45)
[2017-04-18] MEDS: DILTIAZEM HCL 30 MG TAB PO SCH ×4 (09:00→21:45)
--- NOTE | 2017-04-18 14:38 | HHI.PR ---
Subjective Remarks ALERT NO SOB O2 SAT 95% ON high flow nasal O2 Objective Vital Signs Date Time Temp Pulse Resp B/P (MAP) Pulse Ox O2 Delivery O2 Flow Rate FiO2 04/18/17 12:00 99.0 110 21 114/70 (85) 100 04/18/17 08:20 Nasal Cannula 6.00 Humidified 04/18/17 08:00 97.8 106 21 94/66 (75) 100 04/18/17 07:59 99 04/18/17 04:33 98.4 99 18 90/55 (67) 92 04/18/17 04:00 102 04/18/17 00:00 103 04/17/17 23:53 98.2 92 18 93/62 (72) 94 04/17/17 22:37 93 Nasal Cannula 6.00 04/17/17 22:15 98.4 91 18 94/60 (71) 92 04/17/17 22:00 Nasal Cannula 5.00 04/17/17 18:00 89 04/17/17 16:00 98.6 81 24 119/67 (84) 88 04/17/17 16:00 81 I/O 04/17/17 04/17/17 04/17/17 04/18/17 04/18/17 04/18/17 07:00 15:00 23:00 07:00 15:00 23:00 Intake Total 480 ml 515 ml 240 ml Output Total 650 ml 425 ml 300 ml Balance -170 ml 90 ml -60 ml Intake Oral 480 ml 515 ml 240 ml Output Urine Total 650 ml 425 ml 300 ml # Bowel Movements 0 0 0 Result Diagram: 04/18/17 0420 04/17/17 0555 Procedures None Objective Remarks GENERAL: SKIN: Warm and dry. HEAD: Atraumatic. Normocephalic. EYES: Pupils equal and round. No scleral icterus. No injection or drainage. ENT: No nasal bleeding or discharge. Mucous membranes pink and moist. NECK: Trachea midline. No JVD. CARDIOVASCULAR: Regular rate and rhythm. RESPIRATORY: No accessory muscle use. Clear to auscultation. Breath sounds equal bilaterally. GASTROINTESTINAL: Abdomen soft, non-tender, nondistended. Hepatic and splenic margins not palpable. MUSCULOSKELETAL: Extremities without clubbing, cyanosis, or edema. No obvious deformities. NEUROLOGICAL: Awake and alert. No obvious cranial nerve deficits. Motor grossly within normal limits. Five out of 5 muscle strength in the arms and legs. Normal speech. PSYCHIATRIC: Appropriate mood and affect; insight and judgment normal. Assessment and Plan Assessment and Plan RESPIRATORY FAILURE CHF DVT PLAN O2 NEEDED PULM TOILET increase activity Tania Marin MD Apr 18, 2017 14:38
--- NOTE | 2017-04-18 16:07 | HHI.PR ---
Subjective Remarks The patient said that he was missing a few medications. He said he was still constipated but passing gas. He requested a suppository. He wanted to walk around. Discussed with nursing. Objective Vitals Vital Signs Date Time Temp Pulse Resp B/P (MAP) Pulse Ox O2 Delivery O2 Flow Rate FiO2 04/18/17 12:00 99.0 110 21 114/70 (85) 100 04/18/17 08:20 Nasal Cannula 6.00 Humidified 04/18/17 08:00 97.8 106 21 94/66 (75) 100 04/18/17 07:59 99 04/18/17 04:33 98.4 99 18 90/55 (67) 92 04/18/17 04:00 102 04/18/17 00:00 103 04/17/17 23:53 98.2 92 18 93/62 (72) 94 04/17/17 22:37 93 Nasal Cannula 6.00 04/17/17 22:15 98.4 91 18 94/60 (71) 92 04/17/17 22:00 Nasal Cannula 5.00 04/17/17 18:00 89 I/O 04/17/17 04/17/17 04/17/17 04/18/17 04/18/17 04/18/17 07:00 15:00 23:00 07:00 15:00 23:00 Intake Total 480 ml 515 ml 240 ml Output Total 650 ml 425 ml 300 ml Balance -170 ml 90 ml -60 ml Intake Oral 480 ml 515 ml 240 ml Output Urine Total 650 ml 425 ml 300 ml # Bowel Movements 0 0 0 Result Diagram: 04/18/17 0420 04/17/17 0555 Imaging Last Impressions Chest X-Ray 04/14/17 0800 Signed Impressions: Service Date/Time: Friday, April 14, 2017 07:56 - CONCLUSION: 1. Pulmonary edema pattern with improved aeration of the left lower lung zone. Kwaku Vences MD CT Angiography 04/07/17 0000 Signed Impressions: Service Date/Time: Friday, April 07, 2017 17:51 - CONCLUSION: 1. Negative for pulmonary embolus. 2. Large bullous lesion at the right lung apex measuring at least 9 cm in diameter with a small amount of internal fluid and surrounding lung consolidation. Additional patchy airspace disease at both bases. Small bilateral pleural effusions. Moderate to severe centrilobular emphysema as well. 3. Severe coronary calcifications. 4. Mild hilar and mediastinal adenopathy. Raleigh Naranjo MD Tibia/Fibula X-Ray 04/05/17 0000 Signed Impressions: Service Date/Time: Wednesday, April 05, 2017 16:28 - CONCLUSION: Soft tissue swelling without fracture or periosteal reaction. Benton Hidalgo MD Myocardial Perfusion Scan Nuc Med 04/05/17 0000 Signed Impressions: Service Date/Time: Wednesday, April 05, 2017 14:29 - CONCLUSION: No appreciable ischemia. RISK CATEGORY: Low (<1%% Annual Mortality Rate) Anna Ratliff MD Lower Extremity Ultrasound 04/05/17 0000 Signed Impressions: Service Date/Time: Wednesday, April 05, 2017 10:30 - CONCLUSION: Bilateral DVT. Anna Ratliff MD Lower Extremity MRI 04/05/17 0000 Signed Impressions: Service Date/Time: Wednesday, April 05, 2017 16:42 - CONCLUSION: Edematous soft tissues of the left leg. No abscess or osteomyelitis. Benton Hidalgo MD Objective Remarks GENERAL: No acute distress. HEENT: NC, AT. CARDIOVASCULAR: No murmur appreciated. Tachycardic. RESPIRATORY: Clear to auscultation bilaterally. GASTROINTESTINAL: Abdomen soft, non-tender, nondistended. MUSCULOSKELETAL: Left lower extremity with 7 cm ulcer which has eschar tissue in it, right lower extremity with 10 cm ulcer which shows granulation healing, currently bandaged. NEURO: Awake and alert, moves all extremities. PSYCH: Calm. Medications and IVs Current Medications Medications (Trade) Dose Ordered Sig/Deacon Route Start Time Stop Time Status Last Admin (NS Flush) 2 ml UNSCH PRN IV FLUSH 04/03/17 11:00 (NS Flush) 2 ml BID IV FLUSH 04/03/17 21:00 04/18/17 08:56 (Tylenol) 650 mg Q4H PRN PO 04/03/17 11:00 (Cardizem) 30 mg QID PO 04/03/17 13:00 04/18/17 13:43 (Ecotrin Ec) 81 mg DAILY PO 04/03/17 13:00 04/18/17 08:55 (Coreg) 6.25 mg Q12HR PO 04/05/17 11:00 04/17/17 22:42 (Prinivil) 2.5 mg DAILY PO 04/06/17 09:00 04/17/17 08:53 Pharmacy Profile Note 0 ml @ 0 mls/hr UNSCH OTHER 04/05/17 10:30 (Pill Splitter) 1 ea UNSCH PRN OTHER 04/05/17 11:00 (Ultram) 50 mg Q6H PRN PO 04/05/17 12:15 04/17/17 08:52 (Coumadin) 5 mg DAILY@1600 PO 04/05/17 16:00 Future hold 04/17/17 18:35 (Gentamicin 0.1% Cream) 1 applic DAILY TOPICAL 04/07/17 09:00 04/17/17 08:54 (Santyl Oint) 1 applic DAILY TOPICAL 04/07/17 09:00 04/17/17 08:54 (Colace) 100 mg BID PO 04/07/17 09:00 04/18/17 08:54 (Milk Of Magnesia Liq) 30 ml Q6H PRN PO 04/07/17 01:30 04/18/17 08:55 Miscellaneous Information Patient in critical care unit? Ass... Q361D .XX 04/07/17 21:30 04/07/17 21:30 (Duoneb Neb) 1 ampule Q4HR NEB PRN INH 04/12/17 11:45 (Fleets Enema (Adult)) 133 ml UNSCH PRN RECTAL 04/12/17 17:00 (Lasix) 40 mg BID@,18 PO 04/16/17 18:00 04/17/17 18:36 (KCl) 20 meq DAILY PO 04/16/17 09:15 04/17/17 08:53 A/P Assessment and Plan Acute respiratory failure/ Acute systolic CHF/ COPD The pt had right mid and lower lobe pneumonia, CHF and COPD. 2D echocardiogram with EF 20-25%. Cardiology consult appreciated. Stress test negative. CTA: Large bullous lesions at the right lung apex measuring 9 cm in diameter with a small amount of internal fluid and surrounding lung consolidation; Additional patchy airspace disease at both bases; Small bilateral pleural effusions; Moderate to severe centrilobular emphysema as well. Consulted pulmonology. S/p antibiotics. - continue oxygen as needed. Wean as tolerated. - Lasix PO. - follow up with cardiology and pulmonology. - continue cardiac regimen. - continue bronchodilator, Mucolytic, incentive spirometry. - PT/ OT. - IS. Bilateral DVT US with bilateral DVT, already on Warfarin started by Cardiology for Atrial Fibrillation. - continue Coumadin with pharmacy assistance. Atrial fibrillation with RVR Cardiology consult appreciated. - Coumadin per pharmacy. - continue diltiazem. - telemetry. Lower extremity ulcers Discussed with wound care about his left leg necrotic wound. Consulted podiatry. - wound care per podiatry. - diuresis. UTI with Escherichia coli/Klebsiella Sensitive to ceftriaxone. - treated. Constipation Ongoing. - Add lactulose and Senokot to the regimen. Dulcolax suppository if unsuccessful. DVT prophylaxis: Warfarin Discharge Planning Will likely need placement. Awaiting improvement in oxygenation as well Mitch Catherine DO Apr 18, 2017 16:07
[2017-04-18] MEDS ORDERED: LACTULOSE SYRUP 20 GM/30 ML CUP PO SCH (16:15)
[2017-04-18] MEDS ORDERED: BISACODYL 10 MG SUPP RECTAL ONE (16:15)
[2017-04-18] MEDS: WARFARIN SOD 5 MG TAB PO SCH (18:24)
[2017-04-18] MEDS: SENNOSIDES 8.6 MG TAB PO SCH (18:24)
[2017-04-18] MEDS: GENTAMICIN SULFATE 0.1% CREAM 15 GM TOPICAL SCH (18:25)
[2017-04-19] VITALS (12 sets, daily range): BP systolic 93–110; BP diastolic 58–67; PULSE 84–124; RESP 18–24; TEMP 97.7–98.3; O2SAT 92–100
[2017-04-19] MEDS: DILTIAZEM HCL 30 MG TAB PO SCH ×4 (09:00→21:56)
[2017-04-19] MEDS: GENTAMICIN SULFATE 0.1% CREAM 15 GM TOPICAL SCH (09:00)
[2017-04-19] MEDS: COLLAGENASE OINT 30 GM TUBE TOPICAL SCH (09:00)
[2017-04-19] MEDS: SENNOSIDES 8.6 MG TAB PO SCH (09:00)
[2017-04-19] MEDS: CARVEDILOL 6.25 MG TAB PO SCH ×3 (09:00→21:56)
[2017-04-19] MEDS: DOCUSATE SODIUM 100 MG CAP PO SCH ×2 (09:00→21:00)
[2017-04-19] MEDS: POTASSIUM CHLORIDE 20 MEQ CONTROLLED RELEASE TAB PO SCH (09:36)
[2017-04-19] MEDS: SODIUM CHLORIDE 0.9% FLUSH 10 ML FLUSH IV FLUSH SCH ×2 (09:36→21:56)
[2017-04-19] MEDS: ASPIRIN EC 81 MG TABEC PO SCH (09:36)
[2017-04-19] MEDS: FUROSEMIDE 40 MG TAB PO SCH ×2 (09:37→17:19)
[2017-04-19] MEDS: LISINOPRIL 5 MG TAB PO SCH (09:37)
--- NOTE | 2017-04-19 12:49 | RADRPT ---
EXAM DATE/TIME: 04/19/2017 12:27 [facility] COMPARISON: CHEST SINGLE AP, April 14, 2017, 7:56. INDICATIONS : Difficulty breathing MEDICAL HISTORY : Congestive heart failure. lower extremity edema SURGICAL HISTORY : None. ENCOUNTER: Initial ACUITY: 1 day PAIN SCORE: 0/10 LOCATION: Bilateral chest FINDINGS: A single view of the chest demonstrates minimal residual densities in the lungs but unchanged. Heart normal size.. Osseous structures are intact. CONCLUSION: Stable minimal residual pulmonary densities predominantly right lung. Benton Hidalgo MD on April 19, 2017 at 12:44 Board Certified Radiologist. This report was verified electronically.
--- NOTE | 2017-04-19 13:18 | HHI.PR ---
Subjective Remarks Asked to see the patient for desaturation of oxygen level. The patient had no complaints. He denied shortness of breath or chest pain. He was on a Ventimask which was transitioned to nasal cannula. Respiratory therapy was at bedside. Objective Vitals Vital Signs Date Time Temp Pulse Resp B/P (MAP) Pulse Ox O2 Delivery O2 Flow Rate FiO2 04/19/17 11:51 Nasal Cannula 5.00 04/19/17 09:40 Nasal Cannula 5.00 04/19/17 08:59 100 Nasal Cannula 6.00 04/19/17 08:32 97.8 104 18 93/62 (72) 92 04/19/17 08:00 99 04/19/17 04:00 95 04/19/17 03:50 98.3 92 20 95/61 (72) 100 04/19/17 00:10 98.2 97 24 108/61 (77) 98 04/19/17 00:00 90 04/18/17 20:30 91 Nasal Cannula 6.00 04/18/17 20:18 97.1 101 24 98/63 (75) 88 04/18/17 20:15 Nasal Cannula 6.00 04/18/17 20:15 96 04/18/17 17:21 97 Nasal Cannula 5.00 04/18/17 16:01 122 04/18/17 16:00 97.7 111 21 114/80 (91) 97 I/O 04/18/17 04/18/17 04/18/17 04/19/17 04/19/17 04/19/17 07:00 15:00 23:00 07:00 15:00 23:00 Intake Total 240 ml 720 ml 480 ml Output Total 300 ml 975 ml 500 ml Balance -60 ml -255 ml -20 ml Intake Oral 240 ml 720 ml 480 ml Output Urine Total 300 ml 975 ml 500 ml # Bowel Movements 0 1 2 Result Diagram: 04/18/17 0420 04/17/17 0555 Imaging Last Impressions Chest X-Ray 04/19/17 0000 Signed Impressions: Service Date/Time: Wednesday, April 19, 2017 12:27 - CONCLUSION: Stable minimal residual pulmonary densities predominantly right lung. Benton Hidalgo MD CT Angiography 04/07/17 0000 Signed Impressions: Service Date/Time: Friday, April 07, 2017 17:51 - CONCLUSION: 1. Negative for pulmonary embolus. 2. Large bullous lesion at the right lung apex measuring at least 9 cm in diameter with a small amount of internal fluid and surrounding lung consolidation. Additional patchy airspace disease at both bases. Small bilateral pleural effusions. Moderate to severe centrilobular emphysema as well. 3. Severe coronary calcifications. 4. Mild hilar and mediastinal adenopathy. Raleigh Naranjo MD Tibia/Fibula X-Ray 04/05/17 0000 Signed Impressions: Service Date/Time: Wednesday, April 05, 2017 16:28 - CONCLUSION: Soft tissue swelling without fracture or periosteal reaction. Benton Hidalgo MD Myocardial Perfusion Scan Nuc Med 04/05/17 0000 Signed Impressions: Service Date/Time: Wednesday, April 05, 2017 14:29 - CONCLUSION: No appreciable ischemia. RISK CATEGORY: Low (<1%% Annual Mortality Rate) Anna Ratliff MD Lower Extremity Ultrasound 04/05/17 0000 Signed Impressions: Service Date/Time: Wednesday, April 05, 2017 10:30 - CONCLUSION: Bilateral DVT. Anna Ratliff MD Lower Extremity MRI 04/05/17 0000 Signed Impressions: Service Date/Time: Wednesday, April 05, 2017 16:42 - CONCLUSION: Edematous soft tissues of the left leg. No abscess or osteomyelitis. Benton Hidalgo MD Objective Remarks GENERAL: No acute distress. HEENT: NC, AT. CARDIOVASCULAR: No murmur appreciated. Tachycardic. RESPIRATORY: Scattered rhonchi. GASTROINTESTINAL: Abdomen soft, non-tender, nondistended. MUSCULOSKELETAL: Left lower extremity with 7 cm ulcer which has eschar tissue in it, right lower extremity with 10 cm ulcer which shows granulation healing, currently bandaged. NEURO: Awake and alert, moves all extremities. PSYCH: Calm. Medications and IVs Current Medications Medications (Trade) Dose Ordered Sig/Deacon Route Start Time Stop Time Status Last Admin (NS Flush) 2 ml UNSCH PRN IV FLUSH 04/03/17 11:00 (NS Flush) 2 ml BID IV FLUSH 04/03/17 21:00 04/19/17 09:36 (Tylenol) 650 mg Q4H PRN PO 04/03/17 11:00 (Cardizem) 30 mg QID PO 04/03/17 13:00 23/18 12:35 (Ecotrin Ec) 81 mg DAILY PO 04/03/17 13:00 04/19/17 09:36 (Coreg) 6.25 mg Q12HR PO 04/05/17 11:00 04/19/17 12:36 (Prinivil) 2.5 mg DAILY PO 04/06/17 09:00 04/19/17 09:37 Pharmacy Profile Note 0 ml @ 0 mls/hr UNSCH OTHER 04/05/17 10:30 (Pill Splitter) 1 ea UNSCH PRN OTHER 04/05/17 11:00 (Ultram) 50 mg Q6H PRN PO 04/05/17 12:15 04/17/17 08:52 (Coumadin) 5 mg DAILY@1600 PO 04/05/17 16:00 Future hold 04/18/17 18:24 (Gentamicin 0.1% Cream) 1 applic DAILY TOPICAL 04/07/17 09:00 04/18/17 18:25 (Santyl Oint) 1 applic DAILY TOPICAL 04/07/17 09:00 04/17/17 08:54 (Colace) 100 mg BID PO 04/07/17 09:00 04/18/17 21:45 (Milk Of Magnesia Liq) 30 ml Q6H PRN PO 04/07/17 01:30 04/18/17 08:55 Miscellaneous Information Patient in critical care unit? Ass... Q361D .XX 04/07/17 21:30 04/07/17 21:30 (Duoneb Neb) 1 ampule Q4HR NEB PRN INH 04/12/17 11:45 (Fleets Enema (Adult)) 133 ml UNSCH PRN RECTAL 04/12/17 17:00 (Lasix) 40 mg BID@09,18 PO 04/16/17 18:00 04/19/17 09:37 (KCl) 20 meq DAILY PO 04/16/17 09:15 04/19/17 09:36 (Senokot) 17.2 mg DAILY PO 04/18/17 16:15 04/18/17 18:24 A/P Assessment and Plan Acute respiratory failure/ Acute systolic CHF/ COPD The pt had right mid and lower lobe pneumonia, CHF and COPD. 2D echocardiogram with EF 20-25%. Cardiology consult appreciated. Stress test negative. CTA: Large bullous lesions at the right lung apex measuring 9 cm in diameter with a small amount of internal fluid and surrounding lung consolidation; Additional patchy airspace disease at both bases; Small bilateral pleural effusions; Moderate to severe centrilobular emphysema as well. Consulted pulmonology. S/p antibiotics. Required Ventimask 04/19/17. Repeat chest x-ray was stable. - ABG pending. - continue oxygen as needed. Wean as tolerated. BiPAP ordered in case desaturation recurs. - Lasix PO. - follow up with cardiology and pulmonology. - continue cardiac regimen. - continue bronchodilator, Mucolytic, incentive spirometry. - PT/ OT. - IS. Bilateral DVT US with bilateral DVT, already on Warfarin started by Cardiology for Atrial Fibrillation. - continue Coumadin with pharmacy assistance. Atrial fibrillation with RVR Cardiology consult appreciated. - Coumadin per pharmacy. - continue diltiazem. - telemetry. Lower extremity ulcers Discussed with wound care about his left leg necrotic wound. Consulted podiatry. - wound care per podiatry. - diuresis. UTI with Escherichia coli/Klebsiella Sensitive to ceftriaxone. - treated. Constipation Ongoing. - Add lactulose and Senokot to the regimen. Dulcolax suppository if unsuccessful. DVT prophylaxis: Warfarin Discharge Planning Will likely need placement. Awaiting improvement in oxygenation as well Mitch Catherine DO Apr 19, 2017 13:18
--- NOTE | 2017-04-19 15:21 | HHI.PR ---
Subjective Remarks ALERT NO SOB O2 SAT 95% ON high flow nasal O2 Objective Vital Signs Date Time Temp Pulse Resp B/P (MAP) Pulse Ox O2 Delivery O2 Flow Rate FiO2 04/19/17 13:27 Simple Mask 8.00 04/19/17 11:51 Nasal Cannula 5.00 04/19/17 09:40 Nasal Cannula 5.00 04/19/17 08:59 100 Nasal Cannula 6.00 04/19/17 08:32 97.8 104 18 93/62 (72) 92 04/19/17 08:00 99 04/19/17 04:00 95 04/19/17 03:50 98.3 92 20 95/61 (72) 100 04/19/17 00:10 98.2 97 24 108/61 (77) 98 04/19/17 00:00 90 04/18/17 20:30 91 Nasal Cannula 6.00 04/18/17 20:18 97.1 101 24 98/63 (75) 88 04/18/17 20:15 Nasal Cannula 6.00 04/18/17 20:15 96 04/18/17 17:21 97 Nasal Cannula 5.00 04/18/17 16:01 122 04/18/17 16:00 97.7 111 21 114/80 (91) 97 I/O 04/18/17 04/18/17 04/18/17 04/19/17 04/19/17 04/19/17 07:00 15:00 23:00 07:00 15:00 23:00 Intake Total 240 ml 720 ml 480 ml Output Total 300 ml 975 ml 500 ml Balance -60 ml -255 ml -20 ml Intake Oral 240 ml 720 ml 480 ml Output Urine Total 300 ml 975 ml 500 ml # Bowel Movements 0 1 2 Result Diagram: 04/18/17 0420 04/17/17 0555 Procedures None Objective Remarks GENERAL: SKIN: Warm and dry. HEAD: Atraumatic. Normocephalic. EYES: Pupils equal and round. No scleral icterus. No injection or drainage. ENT: No nasal bleeding or discharge. Mucous membranes pink and moist. NECK: Trachea midline. No JVD. CARDIOVASCULAR: Regular rate and rhythm. RESPIRATORY: No accessory muscle use. Clear to auscultation. Breath sounds equal bilaterally. GASTROINTESTINAL: Abdomen soft, non-tender, nondistended. Hepatic and splenic margins not palpable. MUSCULOSKELETAL: Extremities without clubbing, cyanosis, or edema. No obvious deformities. NEUROLOGICAL: Awake and alert. No obvious cranial nerve deficits. Motor grossly within normal limits. Five out of 5 muscle strength in the arms and legs. Normal speech. PSYCHIATRIC: Appropriate mood and affect; insight and judgment normal. Assessment and Plan Assessment and Plan RESPIRATORY FAILURE CHF DVT PLAN O2 NEEDED PULM TOILET increase activity Tania Marin MD Apr 19, 2017 15:21
[2017-04-19] MEDS: WARFARIN SOD 5 MG TAB PO SCH (16:34)
[2017-04-19] MEDS: methylPREDNISolone SOD SUCC 40 MG/1 ML VIAL IV PUSH SCH ×2 (17:19→21:56)
[2017-04-19 23:41] LABS: INTERNATIONAL NORMALIZED RATIO 2.1 RATIO; PROTHROMBIN TIME - PATIENT 21.7 SEC (9.8-11.6)
[2017-04-20] VITALS (12 sets, daily range): BP systolic 102–137; BP diastolic 61–87; PULSE 83–105; RESP 16–22; TEMP 97.1–97.9; O2SAT 93–100
[2017-04-20] MEDS: methylPREDNISolone SOD SUCC 40 MG/1 ML VIAL IV PUSH SCH ×3 (05:39→20:53)
[2017-04-20 07:13] LABS: HEMOGLOBIN 16.8 GM/DL (13.0-17.0); MEAN CELL VOLUME 87.2 FL (80.0-100.0); MEAN CORPUSCULAR HGB CONC 34.4 % (32.0-36.0); MEAN PLATELET VOLUME 8.9 FL (7.0-11.0); PLATELET COUNT 329 TH/MM3 (150-450); RED BLOOD COUNT 5.62 MIL/MM3 (4.50-5.90)
[2017-04-20 07:31] LABS: INTERNATIONAL NORMALIZED RATIO 2.2 RATIO; PROTHROMBIN TIME - PATIENT 22.5 SEC (9.8-11.6)
[2017-04-20 07:38] LABS: BICARBONATE 28.9 MEQ/L (21.0-32.0); CALCIUM 9.4 MG/DL (8.5-10.1); CREATININE 0.96 MG/DL (0.60-1.30)
[2017-04-20] MEDS: SENNOSIDES 8.6 MG TAB PO SCH (08:20)
[2017-04-20] MEDS: DOCUSATE SODIUM 100 MG CAP PO SCH ×2 (08:20→20:54)
[2017-04-20] MEDS: POTASSIUM CHLORIDE 20 MEQ CONTROLLED RELEASE TAB PO SCH (08:22)
[2017-04-20] MEDS: ASPIRIN EC 81 MG TABEC PO SCH (08:22)
[2017-04-20] MEDS: FUROSEMIDE 40 MG TAB PO SCH ×2 (08:22→17:35)
[2017-04-20] MEDS: CARVEDILOL 6.25 MG TAB PO SCH ×2 (08:22→20:53)
[2017-04-20] MEDS: DILTIAZEM HCL 30 MG TAB PO SCH ×4 (08:22→20:53)
[2017-04-20] MEDS: LISINOPRIL 5 MG TAB PO SCH (08:23)
[2017-04-20] MEDS: GENTAMICIN SULFATE 0.1% CREAM 15 GM TOPICAL SCH (08:23)
[2017-04-20] MEDS: COLLAGENASE OINT 30 GM TUBE TOPICAL SCH (08:23)
[2017-04-20] MEDS: SODIUM CHLORIDE 0.9% FLUSH 10 ML FLUSH IV FLUSH SCH ×2 (08:23→20:53)
--- NOTE | 2017-04-20 11:45 | HHI.PR ---
Subjective Remarks The patient was complaining that everybody keeps coming in the room and bothers him. He said he is breathing fine. He says he did have a bowel movement earlier. Discussed with nursing. Objective Vitals Vital Signs Date Time Temp Pulse Resp B/P (MAP) Pulse Ox O2 Delivery O2 Flow Rate FiO2 04/20/17 09:20 93 Nasal Cannula 4.00 04/20/17 09:11 Simple Mask 8.00 04/20/17 08:09 97.6 90 18 125/71 (89) 97 04/20/17 08:00 88 04/20/17 04:45 97.6 95 18 137/87 (104) 100 04/20/17 04:00 96 04/20/17 00:16 97.8 83 16 102/61 (75) 96 04/20/17 00:00 93 04/20/17 00:00 Simple Mask 8.00 04/19/17 20:00 85 04/19/17 20:00 98.1 86 18 110/59 (76) 96 04/19/17 20:00 Simple Mask 8.00 04/19/17 17:58 Simple Mask 8.00 04/19/17 17:00 84 04/19/17 16:09 97.8 88 18 110/58 (75) 96 04/19/17 13:27 Simple Mask 8.00 04/19/17 12:09 97.7 112 18 103/67 (79) 95 04/19/17 12:00 124 04/19/17 11:51 Nasal Cannula 5.00 I/O 04/19/17 04/19/17 04/19/17 04/20/17 04/20/17 04/20/17 07:00 15:00 23:00 07:00 15:00 23:00 Intake Total 480 ml 420 ml Output Total 500 ml 1200 ml 350 ml Balance -20 ml -780 ml -350 ml Intake Oral 480 ml 420 ml Output Urine Total 500 ml 1200 ml 350 ml # Bowel Movements 2 1 Result Diagram: 04/20/17 0556 04/20/17 0556 Imaging Last Impressions Chest X-Ray 04/19/17 0000 Signed Impressions: Service Date/Time: Wednesday, April 19, 2017 12:27 - CONCLUSION: Stable minimal residual pulmonary densities predominantly right lung. Benton Hidalgo MD CT Angiography 04/07/17 0000 Signed Impressions: Service Date/Time: Friday, April 07, 2017 17:51 - CONCLUSION: 1. Negative for pulmonary embolus. 2. Large bullous lesion at the right lung apex measuring at least 9 cm in diameter with a small amount of internal fluid and surrounding lung consolidation. Additional patchy airspace disease at both bases. Small bilateral pleural effusions. Moderate to severe centrilobular emphysema as well. 3. Severe coronary calcifications. 4. Mild hilar and mediastinal adenopathy. Raleigh Naranjo MD Tibia/Fibula X-Ray 04/05/17 0000 Signed Impressions: Service Date/Time: Wednesday, April 05, 2017 16:28 - CONCLUSION: Soft tissue swelling without fracture or periosteal reaction. Benton Hidalgo MD Myocardial Perfusion Scan Nuc Med 04/05/17 0000 Signed Impressions: Service Date/Time: Wednesday, April 05, 2017 14:29 - CONCLUSION: No appreciable ischemia. RISK CATEGORY: Low (<1%% Annual Mortality Rate) Anna Ratliff MD Lower Extremity Ultrasound 04/05/17 0000 Signed Impressions: Service Date/Time: Wednesday, April 05, 2017 10:30 - CONCLUSION: Bilateral DVT. Anna Ratliff MD Lower Extremity MRI 04/05/17 0000 Signed Impressions: Service Date/Time: Wednesday, April 05, 2017 16:42 - CONCLUSION: Edematous soft tissues of the left leg. No abscess or osteomyelitis. Benton Hidalgo MD Objective Remarks GENERAL: No acute distress. HEENT: NC, AT. CARDIOVASCULAR: No murmur appreciated. RESPIRATORY: Scattered rhonchi. GASTROINTESTINAL: Abdomen soft, non-tender, nondistended. MUSCULOSKELETAL: Left lower extremity with 7 cm ulcer which has eschar tissue in it, right lower extremity with 10 cm ulcer which shows granulation healing, currently bandaged. NEURO: Awake and alert, moves all extremities. PSYCH: Mildly agitated. Medications and IVs Current Medications Medications (Trade) Dose Ordered Sig/Deacon Route Start Time Stop Time Status Last Admin (NS Flush) 2 ml UNSCH PRN IV FLUSH 04/03/17 11:00 (NS Flush) 2 ml BID IV FLUSH 04/03/17 21:00 04/20/17 08:23 (Tylenol) 650 mg Q4H PRN PO 04/03/17 11:00 (Cardizem) 30 mg QID PO 04/03/17 13:00 04/20/17 08:22 (Ecotrin Ec) 81 mg DAILY PO 04/03/17 13:00 04/20/17 08:22 (Coreg) 6.25 mg Q12HR PO 04/05/17 11:00 04/20/17 08:22 (Prinivil) 2.5 mg DAILY PO 04/06/17 09:00 04/20/17 08:23 Pharmacy Profile Note 0 ml @ 0 mls/hr UNSCH OTHER 04/05/17 10:30 (Pill Splitter) 1 ea UNSCH PRN OTHER 04/05/17 11:00 (Ultram) 50 mg Q6H PRN PO 04/05/17 12:15 04/17/17 08:52 (Coumadin) 5 mg DAILY@1600 PO 04/05/17 16:00 Future hold 04/19/17 16:34 (Gentamicin 0.1% Cream) 1 applic DAILY TOPICAL 04/07/17 09:00 04/20/17 08:23 (Santyl Oint) 1 applic DAILY TOPICAL 04/07/17 09:00 04/20/17 08:23 (Colace) 100 mg BID PO 04/07/17 09:00 04/18/17 21:45 (Milk Of Magnesia Liq) 30 ml Q6H PRN PO 04/07/17 01:30 04/18/17 08:55 Miscellaneous Information Patient in critical care unit? Ass... Q361D .XX 04/07/17 21:30 04/07/17 21:30 (Duoneb Neb) 1 ampule Q4HR NEB PRN INH 04/12/17 11:45 (Fleets Enema (Adult)) 133 ml UNSCH PRN RECTAL 04/12/17 17:00 (Lasix) 40 mg BID@,18 PO 04/16/17 18:00 04/20/17 08:22 (KCl) 20 meq DAILY PO 04/16/17 09:15 04/20/17 08:22 (Senokot) 17.2 mg DAILY PO 04/18/17 16:15 04/18/17 18:24 (SoluMEDROL INJ) 40 mg Q8HR IV PUSH 04/19/17 16:45 04/20/17 05:39 A/P Assessment and Plan Acute respiratory failure/ Acute systolic CHF/ COPD The pt had right mid and lower lobe pneumonia, CHF and COPD. 2D echocardiogram with EF 20-25%. Cardiology consult appreciated. Stress test negative. CTA: Large bullous lesions at the right lung apex measuring 9 cm in diameter with a small amount of internal fluid and surrounding lung consolidation; Additional patchy airspace disease at both bases; Small bilateral pleural effusions; Moderate to severe centrilobular emphysema as well. Consulted pulmonology. S/p antibiotics. Required Ventimask 04/19/17. Repeat chest x-ray was stable. - continue oxygen as needed. Wean as tolerated. - Lasix PO. - follow up with cardiology and pulmonology. - continue cardiac regimen. - continue bronchodilator, Mucolytic, incentive spirometry. - PT/ OT. - IS. - Added IV Solu-Medrol. Bilateral DVT US with bilateral DVT, already on Warfarin started by Cardiology for Atrial Fibrillation. - continue Coumadin with pharmacy assistance. Atrial fibrillation with RVR Cardiology consult appreciated. - Coumadin per pharmacy. - continue diltiazem. - telemetry. Lower extremity ulcers Discussed with wound care about his left leg necrotic wound. Consulted podiatry. - wound care per podiatry. - diuresis. UTI with Escherichia coli/Klebsiella Sensitive to ceftriaxone. - treated. Constipation Ongoing. - Add lactulose and Senokot to the regimen. Dulcolax suppository if unsuccessful. Resolved. DVT prophylaxis: Warfarin Discharge Planning Will likely need placement. Awaiting improvement in oxygenation as well Mitch Catherine DO Apr 20, 2017 11:45
[2017-04-20] MEDS: WARFARIN SOD 5 MG TAB PO SCH (17:34)
--- NOTE | 2017-04-20 19:27 | HHI.PR ---
Subjective Remarks ALERT NO SOB Objective Vital Signs Date Time Temp Pulse Resp B/P (MAP) Pulse Ox O2 Delivery O2 Flow Rate FiO2 04/20/17 16:09 97.1 90 18 112/66 (81) 95 04/20/17 16:00 96 04/20/17 15:47 Nasal Cannula 6.00 04/20/17 12:09 97.4 92 18 110/65 (80) 94 04/20/17 12:00 95 04/20/17 09:20 93 Nasal Cannula 4.00 04/20/17 09:11 Simple Mask 8.00 04/20/17 08:09 97.6 90 18 125/71 (89) 97 04/20/17 08:00 88 04/20/17 04:45 97.6 95 18 137/87 (104) 100 04/20/17 04:00 96 04/20/17 00:16 97.8 83 16 102/61 (75) 96 04/20/17 00:00 93 04/20/17 00:00 Simple Mask 8.00 04/19/17 20:00 85 04/19/17 20:00 98.1 86 18 110/59 (76) 96 04/19/17 20:00 Simple Mask 8.00 I/O 04/19/17 04/19/17 04/19/17 04/20/17 04/20/17 04/20/17 07:00 15:00 23:00 07:00 15:00 23:00 Intake Total 480 ml 420 ml 380 ml Output Total 500 ml 1200 ml 350 ml 1000 ml Balance -20 ml -780 ml -350 ml -620 ml Intake Oral 480 ml 420 ml 380 ml Output Urine Total 500 ml 1200 ml 350 ml 1000 ml # Bowel Movements 2 1 2 Result Diagram: 04/20/17 0556 04/20/17 0556 Procedures None Objective Remarks GENERAL: SKIN: Warm and dry. HEAD: Atraumatic. Normocephalic. EYES: Pupils equal and round. No scleral icterus. No injection or drainage. ENT: No nasal bleeding or discharge. Mucous membranes pink and moist. NECK: Trachea midline. No JVD. CARDIOVASCULAR: Regular rate and rhythm. RESPIRATORY: No accessory muscle use. Clear to auscultation. Breath sounds equal bilaterally. GASTROINTESTINAL: Abdomen soft, non-tender, nondistended. Hepatic and splenic margins not palpable. MUSCULOSKELETAL: Extremities without clubbing, cyanosis, or edema. No obvious deformities. NEUROLOGICAL: Awake and alert. No obvious cranial nerve deficits. Motor grossly within normal limits. Five out of 5 muscle strength in the arms and legs. Normal speech. PSYCHIATRIC: Appropriate mood and affect; insight and judgment normal. Assessment and Plan Assessment and Plan RESPIRATORY FAILURE CHF DVT PLAN O2 NEEDED PULM TOILET increase activity Tania Marin MD Apr 20, 2017 19:27
[2017-04-21] VITALS (12 sets, daily range): BP systolic 109–119; BP diastolic 59–84; PULSE 73–96; RESP 16–18; TEMP 97.3–98.2; O2SAT 92–98
[2017-04-21] MEDS: methylPREDNISolone SOD SUCC 40 MG/1 ML VIAL IV PUSH SCH (05:05)
[2017-04-21] MEDS: COLLAGENASE OINT 30 GM TUBE TOPICAL SCH (09:00)
[2017-04-21] MEDS: SODIUM CHLORIDE 0.9% FLUSH 10 ML FLUSH IV FLUSH SCH ×2 (09:00→22:07)
[2017-04-21] MEDS: GENTAMICIN SULFATE 0.1% CREAM 15 GM TOPICAL SCH (09:00)
[2017-04-21] MEDS: POTASSIUM CHLORIDE 20 MEQ CONTROLLED RELEASE TAB PO SCH (09:07)
[2017-04-21] MEDS: ASPIRIN EC 81 MG TABEC PO SCH (09:07)
[2017-04-21] MEDS: LISINOPRIL 5 MG TAB PO SCH (09:07)
[2017-04-21] MEDS: DILTIAZEM HCL 30 MG TAB PO SCH ×4 (09:07→22:11)
[2017-04-21] MEDS: DOCUSATE SODIUM 100 MG CAP PO SCH ×2 (09:07→22:10)
[2017-04-21] MEDS: SENNOSIDES 8.6 MG TAB PO SCH (09:07)
[2017-04-21] MEDS: FUROSEMIDE 40 MG TAB PO SCH ×2 (09:08→18:00)
[2017-04-21] MEDS: CARVEDILOL 6.25 MG TAB PO SCH ×2 (09:08→22:10)
[2017-04-21 10:46] LABS: HEMATOCRIT 49.2 % (39.0-51.0); HEMOGLOBIN 16.1 GM/DL (13.0-17.0); MEAN CELL VOLUME 87.6 FL (80.0-100.0); MEAN CORPUSCULAR HEMOGLOBIN 28.7 PG (27.0-34.0); MEAN CORPUSCULAR HGB CONC 32.7 % (32.0-36.0); MEAN PLATELET VOLUME 8.6 FL (7.0-11.0); PLATELET COUNT 358 TH/MM3 (150-450); RED BLOOD COUNT 5.62 MIL/MM3 (4.50-5.90); RED CELL DISTRIBUTION WIDTH 15.9 % (11.6-17.2); WHITE BLOOD COUNT 13.7 TH/MM3 (4.0-11.0)
[2017-04-21 10:53] LABS: INTERNATIONAL NORMALIZED RATIO 3.4 RATIO; PROTHROMBIN TIME - PATIENT 33.9 SEC (9.8-11.6)
--- NOTE | 2017-04-21 11:36 | HHI.PR ---
Subjective Remarks The patient was sitting in a chair and on the phone. He had no acute complaints. Discussed with nursing. Objective Vitals Vital Signs Date Time Temp Pulse Resp B/P (MAP) Pulse Ox O2 Delivery O2 Flow Rate FiO2 04/21/17 08:09 97.9 91 17 119/84 (96) 97 04/21/17 08:00 96 04/21/17 07:00 Nasal Cannula 5.00 04/21/17 06:26 Nasal Cannula 5.00 04/21/17 04:58 98.2 80 18 114/69 (84) 94 04/21/17 03:58 73 04/21/17 00:57 97.5 79 18 109/59 (76) 93 04/21/17 00:00 81 04/21/17 00:00 Nasal Cannula 5.00 04/20/17 20:00 Nasal Cannula 5.00 Humidified 04/20/17 20:00 97.9 104 22 136/75 (95) 94 04/20/17 20:00 105 04/20/17 16:09 97.1 90 18 112/66 (81) 95 04/20/17 16:00 96 04/20/17 15:47 Nasal Cannula 6.00 04/20/17 12:09 97.4 92 18 110/65 (80) 94 04/20/17 12:00 95 I/O 04/20/17 04/20/17 04/20/17 04/21/17 04/21/17 04/21/17 07:00 15:00 23:00 07:00 15:00 23:00 Intake Total 380 ml Output Total 350 ml 1000 ml 1100 ml Balance -350 ml -620 ml -1100 ml Intake Oral 380 ml Output Urine Total 350 ml 1000 ml 1100 ml # Bowel Movements 2 Result Diagram: 04/21/17 1016 04/20/17 0556 Imaging Last Impressions Chest X-Ray 04/19/17 0000 Signed Impressions: Service Date/Time: Wednesday, April 19, 2017 12:27 - CONCLUSION: Stable minimal residual pulmonary densities predominantly right lung. Benton Hidalgo MD CT Angiography 04/07/17 0000 Signed Impressions: Service Date/Time: Friday, April 07, 2017 17:51 - CONCLUSION: 1. Negative for pulmonary embolus. 2. Large bullous lesion at the right lung apex measuring at least 9 cm in diameter with a small amount of internal fluid and surrounding lung consolidation. Additional patchy airspace disease at both bases. Small bilateral pleural effusions. Moderate to severe centrilobular emphysema as well. 3. Severe coronary calcifications. 4. Mild hilar and mediastinal adenopathy. Raleigh Naranjo MD Tibia/Fibula X-Ray 04/05/17 0000 Signed Impressions: Service Date/Time: Wednesday, April 05, 2017 16:28 - CONCLUSION: Soft tissue swelling without fracture or periosteal reaction. Benton Hidalgo MD Myocardial Perfusion Scan Nuc Med 04/05/17 0000 Signed Impressions: Service Date/Time: Wednesday, April 05, 2017 14:29 - CONCLUSION: No appreciable ischemia. RISK CATEGORY: Low (<1%% Annual Mortality Rate) Anna Ratliff MD Lower Extremity Ultrasound 04/05/17 0000 Signed Impressions: Service Date/Time: Wednesday, April 05, 2017 10:30 - CONCLUSION: Bilateral DVT. Anna Ratliff MD Lower Extremity MRI 04/05/17 0000 Signed Impressions: Service Date/Time: Wednesday, April 05, 2017 16:42 - CONCLUSION: Edematous soft tissues of the left leg. No abscess or osteomyelitis. Benton Hidalgo MD Objective Remarks GENERAL: No acute distress. HEENT: NC, AT. CARDIOVASCULAR: No murmur appreciated. RESPIRATORY: Scattered rhonchi. GASTROINTESTINAL: Abdomen soft, non-tender, nondistended. MUSCULOSKELETAL: Left lower extremity with 7 cm ulcer which has eschar tissue in it, right lower extremity with 10 cm ulcer which shows granulation healing, currently bandaged. NEURO: Awake and alert, moves all extremities. PSYCH: Calm. Medications and IVs Current Medications Medications (Trade) Dose Ordered Sig/Deacon Route Start Time Stop Time Status Last Admin (NS Flush) 2 ml UNSCH PRN IV FLUSH 04/03/17 11:00 (NS Flush) 2 ml BID IV FLUSH 04/03/17 21:00 04/21/17 09:00 (Tylenol) 650 mg Q4H PRN PO 04/03/17 11:00 (Cardizem) 30 mg QID PO 04/03/17 13:00 04/21/17 09:07 (Ecotrin Ec) 81 mg DAILY PO 04/03/17 13:00 04/21/17 09:07 (Coreg) 6.25 mg Q12HR PO 04/05/17 11:00 04/21/17 09:08 (Prinivil) 2.5 mg DAILY PO 04/06/17 09:00 04/21/17 09:07 Pharmacy Profile Note 0 ml @ 0 mls/hr UNSCH OTHER 04/05/17 10:30 (Pill Splitter) 1 ea UNSCH PRN OTHER 04/05/17 11:00 (Ultram) 50 mg Q6H PRN PO 04/05/17 12:15 04/17/17 08:52 (Coumadin) 5 mg DAILY@1600 PO 04/05/17 16:00 Future hold 04/20/17 17:34 (Gentamicin 0.1% Cream) 1 applic DAILY TOPICAL 04/07/17 09:00 04/20/17 08:23 (Santyl Oint) 1 applic DAILY TOPICAL 04/07/17 09:00 04/20/17 08:23 (Colace) 100 mg BID PO 04/07/17 09:00 04/21/17 09:07 (Milk Of Brenda Liq) 30 ml Q6H PRN PO 04/07/17 01:30 04/18/17 08:55 Miscellaneous Information Patient in critical care unit? Ass... Q361D .XX 04/07/17 21:30 04/07/17 21:30 (Duoneb Neb) 1 ampule Q4HR NEB PRN INH 04/12/17 11:45 (Fleets Enema (Adult)) 133 ml UNSCH PRN RECTAL 04/12/17 17:00 (Lasix) 40 mg BID@,18 PO 04/16/17 18:00 04/21/17 09:08 (KCl) 20 meq DAILY PO 04/16/17 09:15 04/21/17 09:07 (Senokot) 17.2 mg DAILY PO 04/18/17 16:15 04/21/17 09:07 (SoluMEDROL INJ) 40 mg Q8HR IV PUSH 04/19/17 16:45 04/21/17 05:05 A/P Assessment and Plan Acute respiratory failure/ Acute systolic CHF/ COPD The pt had right mid and lower lobe pneumonia, CHF and COPD. 2D echocardiogram with EF 20-25%. Cardiology consult appreciated. Stress test negative. CTA: Large bullous lesions at the right lung apex measuring 9 cm in diameter with a small amount of internal fluid and surrounding lung consolidation; Additional patchy airspace disease at both bases; Small bilateral pleural effusions; Moderate to severe centrilobular emphysema as well. Consulted pulmonology. S/p antibiotics. Required Ventimask 04/19/17. Repeat chest x-ray was stable. - continue oxygen as needed. Wean as tolerated. - Lasix PO. - follow up with pulmonology. - continue cardiac regimen. - continue bronchodilator, Mucolytic, incentive spirometry. - PT/ OT. - IS. - Added IV Solu-Medrol. Change to by mouth prednisone. Bilateral DVT US with bilateral DVT, already on Warfarin started by Cardiology for Atrial Fibrillation. - continue Coumadin with pharmacy assistance. Atrial fibrillation with RVR Cardiology consult appreciated. Rate controlled. - Coumadin per pharmacy. - continue diltiazem. - telemetry. Lower extremity ulcers Discussed with wound care about his left leg necrotic wound. Consulted podiatry. - wound care per podiatry. - diuresis. UTI with Escherichia coli/Klebsiella Sensitive to ceftriaxone. - treated. Constipation Ongoing. - Add lactulose and Senokot to the regimen. Dulcolax suppository if unsuccessful. Resolved. DVT prophylaxis: Warfarin Discharge Planning Will likely need placement. Awaiting improvement in oxygenation as well Mitch Catherine DO Apr 21, 2017 11:36
--- NOTE | 2017-04-21 20:17 | HHI.PR ---
Subjective Remarks NOT SEEN Objective Vitals Vital Signs Date Time Temp Pulse Resp B/P (MAP) Pulse Ox O2 Delivery O2 Flow Rate FiO2 04/21/17 16:15 97.3 95 18 109/81 (90) 94 04/21/17 16:05 91 04/21/17 15:49 98 Nasal Cannula 5.00 04/21/17 12:22 Nasal Cannula 5.00 04/21/17 12:18 97.3 96 18 112/79 (90) 93 04/21/17 12:00 94 04/21/17 08:09 97.9 91 17 119/84 (96) 97 04/21/17 08:00 Nasal Cannula 5.00 04/21/17 08:00 Nasal Cannula 5.00 04/21/17 08:00 96 04/21/17 07:00 Nasal Cannula 5.00 04/21/17 06:26 Nasal Cannula 5.00 04/21/17 04:58 98.2 80 18 114/69 (84) 94 04/21/17 03:58 73 04/21/17 00:57 97.5 79 18 109/59 (76) 93 04/21/17 00:00 81 04/21/17 00:00 Nasal Cannula 5.00 I/O 04/20/17 04/20/17 04/20/17 04/21/17 04/21/17 04/21/17 07:00 15:00 23:00 07:00 15:00 23:00 Intake Total 380 ml 720 ml Output Total 350 ml 1000 ml 1100 ml 400 ml Balance -350 ml -620 ml -1100 ml 320 ml Intake Oral 380 ml 720 ml Output Urine Total 350 ml 1000 ml 1100 ml 400 ml # Bowel Movements 2 0 Result Diagram: 04/21/17 1016 04/20/17 0556 Imaging Last Impressions Chest X-Ray 04/19/17 0000 Signed Impressions: Service Date/Time: Wednesday, April 19, 2017 12:27 - CONCLUSION: Stable minimal residual pulmonary densities predominantly right lung. Benton Hidalgo MD CT Angiography 04/07/17 0000 Signed Impressions: Service Date/Time: Friday, April 07, 2017 17:51 - CONCLUSION: 1. Negative for pulmonary embolus. 2. Large bullous lesion at the right lung apex measuring at least 9 cm in diameter with a small amount of internal fluid and surrounding lung consolidation. Additional patchy airspace disease at both bases. Small bilateral pleural effusions. Moderate to severe centrilobular emphysema as well. 3. Severe coronary calcifications. 4. Mild hilar and mediastinal adenopathy. Raleigh Naranjo MD Tibia/Fibula X-Ray 04/05/17 0000 Signed Impressions: Service Date/Time: Wednesday, April 05, 2017 16:28 - CONCLUSION: Soft tissue swelling without fracture or periosteal reaction. Benton Hidalgo MD Myocardial Perfusion Scan Nuc Med 04/05/17 0000 Signed Impressions: Service Date/Time: Wednesday, April 05, 2017 14:29 - CONCLUSION: No appreciable ischemia. RISK CATEGORY: Low (<1%% Annual Mortality Rate) Anna Ratliff MD Lower Extremity Ultrasound 04/05/17 0000 Signed Impressions: Service Date/Time: Wednesday, April 05, 2017 10:30 - CONCLUSION: Bilateral DVT. Anna Ratliff MD Lower Extremity MRI 04/05/17 0000 Signed Impressions: Service Date/Time: Wednesday, April 05, 2017 16:42 - CONCLUSION: Edematous soft tissues of the left leg. No abscess or osteomyelitis. Benton Hidalgo MD Objective Remarks GENERAL: No acute distress. HEENT: NC, AT. CARDIOVASCULAR: No murmur appreciated. RESPIRATORY: Scattered rhonchi. GASTROINTESTINAL: Abdomen soft, non-tender, nondistended. MUSCULOSKELETAL: Left lower extremity with 7 cm ulcer which has eschar tissue in it, right lower extremity with 10 cm ulcer which shows granulation healing, currently bandaged. NEURO: Awake and alert, moves all extremities. PSYCH: Calm. Procedures none A/P Problem List: (1) Dyspnea ICD Code: R06.00 - Dyspnea, unspecified (2) Respiratory failure ICD Code: J96.90 - Respiratory failure, unspecified, unspecified whether with hypoxia or hypercapnia Assessment and Plan Acute respiratory failure/ Acute systolic CHF/ COPD The pt had right mid and lower lobe pneumonia, CHF and COPD. 2D echocardiogram with EF 20-25%. Cardiology consult appreciated. Stress test negative. CTA: Large bullous lesions at the right lung apex measuring 9 cm in diameter with a small amount of internal fluid and surrounding lung consolidation; Additional patchy airspace disease at both bases; Small bilateral pleural effusions; Moderate to severe centrilobular emphysema as well. Consulted pulmonology. S/p antibiotics. Required Ventimask 04/19/17. Repeat chest x-ray was stable. - continue oxygen as needed. Wean as tolerated. - Lasix PO. - follow up with pulmonology. - continue cardiac regimen. - continue bronchodilator, Mucolytic, incentive spirometry. - PT/ OT. - IS. - Added IV Solu-Medrol. Change to by mouth prednisone. Bilateral DVT US with bilateral DVT, already on Warfarin started by Cardiology for Atrial Fibrillation. - continue Coumadin with pharmacy assistance. Atrial fibrillation with RVR Cardiology consult appreciated. Rate controlled. - Coumadin per pharmacy. - continue diltiazem. - telemetry. Lower extremity ulcers Discussed with wound care about his left leg necrotic wound. Consulted podiatry. - wound care per podiatry. - diuresis. Constipation Ongoing. - Add lactulose and Senokot to the regimen. Dulcolax suppository if unsuccessful. Resolved. DVT prophylaxis: Warfarin Discharge Planning Will likely need placement. Awaiting improvement in oxygenation as well Tom Shields MD Apr 21, 2017 20:17
[2017-04-22] VITALS (9 sets, daily range): BP systolic 116–163; BP diastolic 76–85; PULSE 71–98; RESP 18–21; TEMP 97.1–98.2; O2SAT 91–94
--- NOTE | 2017-04-22 08:29 | HHI.PR ---
Subjective Remarks ALERT NO SOB Objective Vital Signs Date Time Temp Pulse Resp B/P (MAP) Pulse Ox O2 Delivery O2 Flow Rate FiO2 04/22/17 08:00 97.1 80 18 135/85 (102) 93 04/22/17 04:00 71 04/22/17 04:00 97.5 81 18 129/76 (93) 94 04/22/17 00:00 84 04/22/17 00:00 97.6 79 18 116/76 (89) 94 04/21/17 20:00 Nasal Cannula 5.00 04/21/17 20:00 98.1 82 16 117/72 (87) 92 04/21/17 20:00 82 04/21/17 16:15 97.3 95 18 109/81 (90) 94 04/21/17 16:05 91 04/21/17 15:49 98 Nasal Cannula 5.00 04/21/17 12:22 Nasal Cannula 5.00 04/21/17 12:18 97.3 96 18 112/79 (90) 93 04/21/17 12:00 94 I/O 04/21/17 04/21/17 04/21/17 04/22/17 04/22/17 04/22/17 07:00 15:00 23:00 07:00 15:00 23:00 Intake Total 720 ml Output Total 1100 ml 400 ml 2100 ml Balance -1100 ml 320 ml -2100 ml Intake Oral 720 ml Output Urine Total 1100 ml 400 ml 2100 ml # Bowel Movements 0 Result Diagram: 04/21/17 1016 04/20/17 0556 Procedures None Objective Remarks GENERAL: SKIN: Warm and dry. HEAD: Atraumatic. Normocephalic. EYES: Pupils equal and round. No scleral icterus. No injection or drainage. ENT: No nasal bleeding or discharge. Mucous membranes pink and moist. NECK: Trachea midline. No JVD. CARDIOVASCULAR: Regular rate and rhythm. RESPIRATORY: No accessory muscle use. Clear to auscultation. Breath sounds equal bilaterally. GASTROINTESTINAL: Abdomen soft, non-tender, nondistended. Hepatic and splenic margins not palpable. MUSCULOSKELETAL: Extremities without clubbing, cyanosis, or edema. No obvious deformities. NEUROLOGICAL: Awake and alert. No obvious cranial nerve deficits. Motor grossly within normal limits. Five out of 5 muscle strength in the arms and legs. Normal speech. PSYCHIATRIC: Appropriate mood and affect; insight and judgment normal. Assessment and Plan Assessment and Plan RESPIRATORY FAILURE CHF, COMPENSATED DVT PLAN O2 NEEDED PULM TOILET Tania Marin MD Apr 22, 2017 08:29
[2017-04-22] MEDS ORDERED: predniSONE 20 MG TAB PO SCH (09:00)
[2017-04-22] MEDS: SENNOSIDES 8.6 MG TAB PO SCH (09:00)
[2017-04-22] MEDS: GENTAMICIN SULFATE 0.1% CREAM 15 GM TOPICAL SCH (09:00)
[2017-04-22] MEDS: COLLAGENASE OINT 30 GM TUBE TOPICAL SCH (09:00)
[2017-04-22 09:08] LABS: INTERNATIONAL NORMALIZED RATIO 3.1 RATIO; PROTHROMBIN TIME - PATIENT 30.8 SEC (9.8-11.6)
[2017-04-22] MEDS: DOCUSATE SODIUM 100 MG CAP PO SCH (09:10)
[2017-04-22] MEDS: ASPIRIN EC 81 MG TABEC PO SCH (09:10)
[2017-04-22] MEDS: POTASSIUM CHLORIDE 20 MEQ CONTROLLED RELEASE TAB PO SCH (09:11)
[2017-04-22] MEDS: LISINOPRIL 5 MG TAB PO SCH (09:11)
[2017-04-22] MEDS: DILTIAZEM HCL 30 MG TAB PO SCH ×3 (09:11→18:00)
[2017-04-22] MEDS: CARVEDILOL 6.25 MG TAB PO SCH (09:11)
[2017-04-22] MEDS: SODIUM CHLORIDE 0.9% FLUSH 10 ML FLUSH IV FLUSH SCH (09:12)
[2017-04-22] MEDS: FUROSEMIDE 40 MG TAB PO SCH ×2 (09:12→18:00)
--- NOTE | 2017-04-22 11:20 | HHI.DCPOC ---
Discharge Care Plan Diagnosis: (1) Dyspnea Your Health Problems Are: Difficulty with ADL Exercise Tolerance Goals to Promote Your Health * To prevent worsening of your condition and complications * To maintain your health at the optimal level Directions to Meet Your Goals Take your medications as prescribed Follow your dietary instruction Follow activity as directed Keep your appointments as scheduled Take your immunizations and boosters as scheduled If your symptoms worsen call your PCP, if no PCP go to Urgent Care Center or Emergency Room Smoking is Dangerous to Your Health. Avoid second hand smoke Call the 24-hour hour crisis hotline for domestic abuse at Tom Shields MD Apr 22, 2017 11:20
--- NOTE | 2017-04-22 11:23 | HHI.FF ---
Face to Face Verification Diagnosis: (1) Dyspnea Physical Therapy Order: Evaluate and Treat, Improve ambulation, Strength and gait training Home Health Nursing Order: Medical education CHF education Oxygen administration education Medication education-adverse effect Nursing assessment with vital signs I have seen patient Kyle Rocha on 04/22/17. My clinical findings support the need for the requested home health care services because: Patient has SOB I certify that my clinical findings support that this patient is homebound because: Hx COPD- exertion dyspnea/weakness Need for psychosocial assistance Tom Shields MD Apr 22, 2017 11:22
--- NOTE | 2017-04-22 12:47 | HHI.PR ---
Subjective Remarks F/u respiratory failure. He is doing okay denies shortness of breath. Currently on 4 L. States he uses 5 L at home. Again refuses to go to group home facility. Has anterior leg wounds gets care from [place] Objective Vitals Vital Signs Date Time Temp Pulse Resp B/P (MAP) Pulse Ox O2 Delivery O2 Flow Rate FiO2 04/22/17 12:25 98.2 82 21 163/81 (108) 94 04/22/17 11:39 91 Nasal Cannula 4.00 04/22/17 08:00 98 04/22/17 08:00 97.1 80 18 135/85 (102) 93 04/22/17 08:00 Nasal Cannula 4.00 04/22/17 04:00 71 04/22/17 04:00 97.5 81 18 129/76 (93) 94 04/22/17 00:00 84 04/22/17 00:00 97.6 79 18 116/76 (89) 94 04/21/17 20:00 Nasal Cannula 5.00 04/21/17 20:00 98.1 82 16 117/72 (87) 92 04/21/17 20:00 82 04/21/17 16:15 97.3 95 18 109/81 (90) 94 04/21/17 16:05 91 04/21/17 15:49 98 Nasal Cannula 5.00 I/O 04/21/17 04/21/17 04/21/17 04/22/17 04/22/17 04/22/17 07:00 15:00 23:00 07:00 15:00 23:00 Intake Total 720 ml Output Total 1100 ml 400 ml 2100 ml Balance -1100 ml 320 ml -2100 ml Intake Oral 720 ml Output Urine Total 1100 ml 400 ml 2100 ml # Bowel Movements 0 Result Diagram: 04/21/17 1016 04/20/17 0556 Imaging Last Impressions Chest X-Ray 04/19/17 0000 Signed Impressions: Service Date/Time: Wednesday, April 19, 2017 12:27 - CONCLUSION: Stable minimal residual pulmonary densities predominantly right lung. Benton Hidalgo MD CT Angiography 04/07/17 0000 Signed Impressions: Service Date/Time: Friday, April 07, 2017 17:51 - CONCLUSION: 1. Negative for pulmonary embolus. 2. Large bullous lesion at the right lung apex measuring at least 9 cm in diameter with a small amount of internal fluid and surrounding lung consolidation. Additional patchy airspace disease at both bases. Small bilateral pleural effusions. Moderate to severe centrilobular emphysema as well. 3. Severe coronary calcifications. 4. Mild hilar and mediastinal adenopathy. Raleigh Naranjo MD Tibia/Fibula X-Ray 04/05/17 0000 Signed Impressions: Service Date/Time: Wednesday, April 05, 2017 16:28 - CONCLUSION: Soft tissue swelling without fracture or periosteal reaction. Benton Hidalgo MD Myocardial Perfusion Scan Nuc Med 04/05/17 Signed Impressions: Service Date/Time: Wednesday, April 05, 2017 14:29 - CONCLUSION: No appreciable ischemia. RISK CATEGORY: Low (<1%% Annual Mortality Rate) Anna Ratliff MD Lower Extremity Ultrasound 04/05/17 0000 Signed Impressions: Service Date/Time: Wednesday, April 05, 2017 10:30 - CONCLUSION: Bilateral DVT. Anna Ratliff MD Lower Extremity MRI 04/05/17 Signed Impressions: Service Date/Time: Wednesday, April 05, 2017 16:42 - CONCLUSION: Edematous soft tissues of the left leg. No abscess or osteomyelitis. Benton Hidalgo MD Objective Remarks GENERAL: No acute distress. HEENT: NC, AT. CARDIOVASCULAR: No murmur appreciated. RESPIRATORY: Scattered rhonchi. GASTROINTESTINAL: Abdomen soft, non-tender, nondistended. MUSCULOSKELETAL: Left lower extremity with 7 cm ulcer which has eschar tissue in it, right lower extremity with 10 cm ulcer which shows granulation healing NEURO: Awake and alert, moves all extremities. PSYCH: Calm. Procedures none A/P Problem List: (1) Dyspnea ICD Code: R06.00 - Dyspnea, unspecified (2) Respiratory failure ICD Code: J96.90 - Respiratory failure, unspecified, unspecified whether with hypoxia or hypercapnia Assessment and Plan Acute respiratory failure/ Acute systolic CHF/ COPD. Clinically stable The pt had right mid and lower lobe pneumonia, CHF and COPD. 2D echocardiogram with EF 20-25%. Cardiology consult appreciated. Stress test negative. CTA: Large bullous lesions at the right lung apex measuring 9 cm in diameter with a small amount of internal fluid and surrounding lung consolidation; Additional patchy airspace disease at both bases; Small bilateral pleural effusions; Moderate to severe centrilobular emphysema as well. Consulted pulmonology. S/p antibiotics. Required Ventimask 04/19/17. Repeat chest x-ray was stable. - continue oxygen as needed. Wean as tolerated currently on 4 L uses 5 L at home. - Lasix PO. - follow up with pulmonology. - continue cardiac regimen BRISEYDA and BB. - continue bronchodilator, Mucolytic, incentive spirometry. - PT/ OT. - IS. - Continue prednisone. Bilateral DVT US with bilateral DVT, already on Warfarin started by Cardiology for Atrial Fibrillation. - continue Coumadin with pharmacy assistance. Atrial fibrillation with RVR Cardiology consult appreciated. Rate controlled. - Coumadin per pharmacy. - continue diltiazem and Coreg. - telemetry. Lower extremity ulcers Discussed with wound care about his left leg necrotic wound. Consulted podiatry. - wound care per podiatry. - diuresis. Constipation Ongoing. - Ct lactulose and Senokot. Dulcolax suppository if unsuccessful. Resolved. DVT prophylaxis: Warfarin Discharge Planning Refuses SNF. Dc home with PT and VN Tom Shields MD Apr 22, 2017 12:47
[2017-04-22] MEDS ORDERED: GENTAMICIN 0.1% TOPICAL (12:55)
[2017-04-22] MEDS ORDERED: PRED20 PO (12:55)
[2017-04-22] MEDS ORDERED: CARV6.25 PO (12:55)
[2017-04-22] MEDS ORDERED: DOCU1CAP39 PO (12:55)
[2017-04-22] MEDS ORDERED: DILT31TA PO (12:55)
[2017-04-22] MEDS ORDERED: COUM5TAB PO (12:55)
[2017-04-22] MEDS ORDERED: POTA20TA5 PO (12:55)
[2017-04-22] MEDS ORDERED: FURO40TA PO (12:55)
[2017-04-22] MEDS ORDERED: ECASA81 PO (12:55)
[2017-04-22] MEDS ORDERED: LISI-519 PO (12:55)
[2017-04-22] MEDS ORDERED: COLL30T TOPICAL (12:55)
--- NOTE | 2017-04-22 12:58 | HHI.DS ---
Discharge Summary Admission Date Apr 03, 2017 at 11:24 Discharge Date: Apr 22, 2017 Admitting Diagnosis CHF Exacerbation; LE Edema and wounds, atrial fibrillation with RVR (1) Dyspnea ICD Code: R06.00 - Dyspnea, unspecified Diagnosis: Principal (2) Respiratory failure ICD Code: J96.90 - Respiratory failure, unspecified, unspecified whether with hypoxia or hypercapnia Diagnosis: Principal Procedures none Brief History - From Admission This is a 72-year-old male with a history of question of COPD on oxygen, history of CHF, and history of noncompliance who presented with lower extremity edema. Patient stated that in 2012 he presented with the same symptom lotion edema with ulcerating wounds. This had occurred multiple times over the past years and [facility] so he stopped seeing the doctor in 2012. Patient stated that he came today because he still felt that the edema worsened the last week. He stated that the blisters are intermittent and throughout the past years. Denies any fever. Patient denies chest pain, shortness of breathing, cough, palpation, lightheadedness or dizziness. During patient's examination by the emergency medicine physician he was found to have atrial fibrillation with RVR. Patient is a poor historian. Patient stopped taking medication since 2012. All other review system reviewed and negative. CBC/BMP: 04/21/17 1016 04/20/17 0556 Significant Findings Laboratory Tests Test 04/19/17 13:01 04/19/17 22:56 04/20/17 05:56 04/21/17 10:16 Blood Gas HCO3 29 mmol/L (22-26) Blood Gas Base Excess 5.7 mmol/L (-2-2) Blood Gas Oxygen Saturation 86 % (90-100) Arterial Blood pH 7.51 (7.380-7.420) Arterial Blood Partial Pressure CO2 36 mmHg (38-42) Arterial Blood Partial Pressure O2 55 mmHg (61-120) Arterial Blood Oxygen Content 21.8 Vol % (12.0-20.0) Blood Gas Hemoglobin 18.1 G/DL (12.0-16.0) Prothrombin Time 21.7 SEC (9.8-11.6) 22.5 SEC (9.8-11.6) 33.9 SEC (9.8-11.6) Blood Urea Nitrogen 26 MG/DL (7-18) Random Glucose 146 MG/DL (74-106) Sodium Level 134 MEQ/L (136-145) Chloride Level 97 MEQ/L (98-107) White Blood Count 13.7 TH/MM3 (4.0-11.0) Test 04/22/17 08:05 Prothrombin Time 30.8 SEC (9.8-11.6) Imaging Last Impressions Chest X-Ray 04/19/17 0000 Signed Impressions: Service Date/Time: Wednesday, April 19, 2017 12:27 - CONCLUSION: Stable minimal residual pulmonary densities predominantly right lung. Benton Hidalgo MD CT Angiography 04/07/17 0000 Signed Impressions: Service Date/Time: Friday, April 07, 2017 17:51 - CONCLUSION: 1. Negative for pulmonary embolus. 2. Large bullous lesion at the right lung apex measuring at least 9 cm in diameter with a small amount of internal fluid and surrounding lung consolidation. Additional patchy airspace disease at both bases. Small bilateral pleural effusions. Moderate to severe centrilobular emphysema as well. 3. Severe coronary calcifications. 4. Mild hilar and mediastinal adenopathy. Raleigh Naranjo MD Tibia/Fibula X-Ray 04/05/17 0000 Signed Impressions: Service Date/Time: Wednesday, April 05, 2017 16:28 - CONCLUSION: Soft tissue swelling without fracture or periosteal reaction. Benton Hidalgo MD Myocardial Perfusion Scan Nuc Med 04/05/17 0000 Signed Impressions: Service Date/Time: Wednesday, April 05, 2017 14:29 - CONCLUSION: No appreciable ischemia. RISK CATEGORY: Low (<1%% Annual Mortality Rate) Anna Ratliff MD Lower Extremity Ultrasound 04/05/17 0000 Signed Impressions: Service Date/Time: Wednesday, April 05, 2017 10:30 - CONCLUSION: Bilateral DVT. Anna Ratliff MD Lower Extremity MRI 04/05/17 0000 Signed Impressions: Service Date/Time: Wednesday, April 05, 2017 16:42 - CONCLUSION: Edematous soft tissues of the left leg. No abscess or osteomyelitis. Benton Hidalgo MD PE at Discharge GENERAL: No acute distress. HEENT: NC, AT. CARDIOVASCULAR: No murmur appreciated. RESPIRATORY: Scattered rhonchi. GASTROINTESTINAL: Abdomen soft, non-tender, nondistended. MUSCULOSKELETAL: Left lower extremity with 7 cm ulcer which has eschar tissue in it, right lower extremity with 10 cm ulcer which shows granulation healing NEURO: Awake and alert, moves all extremities. PSYCH: Calm. Hospital Course Acute respiratory failure/ Acute systolic CHF/ COPD. Clinically stable The pt had right mid and lower lobe pneumonia, CHF and COPD. 2D echocardiogram with EF 20-25%. Cardiology consult appreciated. Stress test negative. CTA: Large bullous lesions at the right lung apex measuring 9 cm in diameter with a small amount of internal fluid and surrounding lung consolidation; Additional patchy airspace disease at both bases; Small bilateral pleural effusions; Moderate to severe centrilobular emphysema as well. Consulted pulmonology. S/p antibiotics. Required Ventimask 04/19/17. Repeat chest x-ray was stable. - continue oxygen as needed. Wean as tolerated currently on 4 L uses 5 L at home. - Lasix PO. - follow up with pulmonology. - continue cardiac regimen BRISEYDA and BB. - continue bronchodilator, Mucolytic, incentive spirometry. - PT/ OT. - IS. - Continue prednisone. Bilateral DVT US with bilateral DVT, already on Warfarin started by Cardiology for Atrial Fibrillation. - continue Coumadin with pharmacy assistance. Atrial fibrillation with RVR Cardiology consult appreciated. Rate controlled. - Coumadin per pharmacy. - continue diltiazem and Coreg. - telemetry. Lower extremity ulcers Discussed with wound care about his left leg necrotic wound. Consulted podiatry. - wound care per podiatry. - diuresis. Constipation Ongoing. - Ct lactulose and Senokot. Dulcolax suppository if unsuccessful. Resolved. DVT prophylaxis: Warfarin Pt Condition on Discharge: Stable Discharge Disposition: Disch w/ Home Health Serv Discharge Time: > 30 minutes Discharge Instructions DIET: Follow Instructions for: Heart Healthy Diet Activities you can perform: Regular-No Restrictions Activities to Avoid: Driving Follow up Referrals: Cardiology - 2 Weeks PCP Follow-up - 1 Week Pulmonology - 2 Weeks New Orders: BASIC METABOLIC PROF - 1 Week PT/INR New Medications: Aspirin (Aspirin DR) 81 Mg Tabdr 81 MG PO DAILY for Prevent Blood Clot, #30 TAB Carvedilol (Coreg) 6.25 Mg Tab 6.25 MG PO Q12HR for Prevent Heart Failure, #60 TAB Collagenase (Santyl) 250 Unit/Gram Oin 1 APPLIC TOPICAL DAILY for wound care, #30 TUBE Diltiazem (Cardizem) 30 Mg Tab 30 MG PO QID for Regulate Heart Beat, #120 TAB Docusate Sodium (Dok) 100 Mg Cap 100 MG PO BID for Prevent Constipation, #60 CAP Furosemide (Furosemide) 40 Mg Tab 40 MG PO BID@09,18 for Prevent Heart Failure, #60 TAB Lisinopril (Lisinopril) 5 Mg Tab 2.5 MG PO DAILY for Prevent Heart Failure, #30 TAB Potassium Chloride Microencaps (Potassium Chloride Microencaps) 20 Meq Tab 20 MEQ PO DAILY for Electrolyte Replacement, #30 TAB Prednisone (Prednisone) 20 Mg Tab 20 MG PO DAILY for Control Inflammation, #2 TAB Warfarin (Coumadin) 5 Mg Tab 5 MG PO DAILY@1600 for Prevent Blood Clot, #30 TAB start tomorrow if INR <3 [Gentamicin 0.1% Cream] () 15 APPLIC/15 GM CR 1 APPLIC TOPICAL DAILY for wound care, #30 APPL Tom Shields MD Apr 22, 2017 12:58
[2017-04-22] MEDS ORDERED: OXYGENDME NAS.CANULA (13:16)
== END 2017-04-22 19:45 | disposition home health service (06) | DRG 291 ==
LOC: NEPC 08:32 → NEDA 11:24 → N04B 17:20 → HIMW 04-07 14:46 → N04A 04-17 20:45
PROVIDERS: ADMIT Internal Medicine; ATTEND Internal Medicine
PROC: 3E0F7GC Introduction of Other Therapeutic Substance into Respiratory Tract, Via Natural or Artificial Opening (ICD-10-PCS; principal; 2017-04-03)
DX: I11.0 Hypertensive heart disease with heart failure (principal); J18.9 Pneumonia, unspecified organism; J96.21 Acute and chronic respiratory failure with hypoxia; I50.23 Acute on chronic systolic (congestive) heart failure; I82.403 Acute embolism and thrombosis of unspecified deep veins of lower extremity, bilateral; L03.115 Cellulitis of right lower limb; N39.0 Urinary tract infection, site not specified; I42.9 Cardiomyopathy, unspecified; L03.116 Cellulitis of left lower limb; E87.5 Hyperkalemia; J43.2 Centrilobular emphysema; I48.2 Chronic atrial fibrillation; L97.919 Non-pressure chronic ulcer of unspecified part of right lower leg with unspecified severity; L97.929 Non-pressure chronic ulcer of unspecified part of left lower leg with unspecified severity; Z99.81 Dependence on supplemental oxygen; Z91.19 Patient's noncompliance with other medical treatment and regimen; E78.5 Hyperlipidemia, unspecified; R73.03 Prediabetes; Z87.891 Personal history of nicotine dependence; Z91.14 Patient's other noncompliance with medication regimen; I08.0 Rheumatic disorders of both mitral and aortic valves; F43.10 Post-traumatic stress disorder, unspecified; Z51.5 Encounter for palliative care; B96.20 Unspecified Escherichia coli [E. coli] as the cause of diseases classified elsewhere; B96.1 Klebsiella pneumoniae [K. pneumoniae] as the cause of diseases classified elsewhere; K59.00 Constipation, unspecified; G24.9 Dystonia, unspecified; R79.1 Abnormal coagulation profile
CPT/HCPCS: 36600; 71045; 71275; 73590; 73720; 76937; 78452; 80048; 80053; 81001; 82550; 82552; 82805; 83735; 83880; 84100; 84132; 84443; 84484; 85025; 85027; 85610; 85730; 86403; 87070; 87077; 87086; 87186; 87205; 87641; 93005; 93017; 93306; 93308; 93970; 94150; 94618; 96374; 96375; A9502; A9579; J0456; J0696; J1644; J1650; J1885; J1940; J2785; J2920; J3475; J7050; J7512; Q9967

== ENCOUNTER 2017-05-13 09:40 | Inpatient (IN) | payer MEDICARE, OTHER ==
[2017-05-13] VITALS (7 sets, daily range): BP systolic 135–179; BP diastolic 79–104; PULSE 82–126; RESP 18–20; TEMP 97.6–97.9; O2SAT 81–95
[~2017-05-13 09:40] MED LIST changes: +CARV6.25 PO; +COLL30T TOPICAL; +COUM5TAB PO; +DILT31TA PO; +DOCU1CAP39 PO; +ECASA81 PO; +FURO40TA PO; +GENTAMICIN 0.1% TOPICAL; -LASI20TA PO; +LISI-519 PO; -METO25CR PO; +OXYGENDME NAS.CANULA; -POTA-243; +POTA20TA5 PO; +PRED20 PO
[2017-05-13] MEDS ORDERED: SODIUM CHLORIDE 0.9% FLUSH 10 ML FLUSH IV FLUSH PRN (10:15)
[2017-05-13] MEDS ORDERED: SODIUM CHLOR 0.9% 1000 ML INJ 1,000 ML IV SCH (10:15)
[2017-05-13] MEDS ORDERED: ONDANSETRON HCL 4 MG/2 ML VIAL IVP ONE (10:15)
[2017-05-13] MEDS ORDERED: SODIUM CHLORID 0.9% 500 ML INJ 500 ML IV ONE (10:15)
--- NOTE | 2017-05-13 10:16 | PD ---
HPI Chief Complaint: GI Complaint Time Seen by Provider: 10:05 Travel History International Travel<30 days: No Contact w/Intl Traveler<30days: No Traveled to known affect area: No History of Present Illness HPI This is a 72-year-old male with a history of CHF, A. fib, hypertension, oxygen dependent, who presents here with nausea vomiting since Friday. Patient states that he has generalized abdominal pain. He reports that on Friday he noticed nausea and started having vomiting. He has not been able to hold down any food or liquid. He denies any fevers, chills. He reports decreased urine output states last time he urinated was once in the last 24 hours. There is no increased shortness of breath. There are no other complaints at time of examination. Lesion of the patient is an extremely poor historian. PFSH Past Medical History Arthritis: Yes Cancer: No Cardiovascular Problems: Yes High Cholesterol: Yes Chest Pain: Yes Congestive Heart Failure: Yes COPD: Yes Patient Takes Glucophage: No Endocrine: Yes (?PREDIABETES) Gastrointestinal Disorders: No Genitourinary: No Headaches: Yes Hypertension: Yes Immune Disorder: No Implanted Vascular Access Dvce: No Musculoskeletal: Yes Psychiatric: No Reproductive: No Respiratory: Yes ?: Not Past Surgical History Body Medical Devices: PT DENIES Other Surgery: No (DENIES) Social History Alcohol Use: No Tobacco Use: No Substance Use: No Allergies-Medications (Allergen,Severity, Reaction): Coded Allergies: Penicillins (Verified Allergy, Unknown, 04/03/17) Reported Meds & Prescriptions Reported Meds & Active Scripts Active Oxygen (O2) Device Liter ALEXANDRA.CANULA CONTINUOUS Oxygen Concentrator Portable Gaseous 2 L/min via Nasal Canula Continuous For 99 months Santyl (Collagenase) 250 Unit/Gram Oin 1 Applic TOPICAL DAILY [Gentamicin 0.1% Cream] 15 APPLIC/15 GM Cr 1 Applic TOPICAL DAILY Prednisone 20 Mg Tab 20 Mg PO DAILY Dok (Docusate Sodium) 100 Mg Cap 100 Mg PO BID Furosemide 40 Mg Tab 40 Mg PO BID@ Potassium Chloride Microencaps 20 Meq Tab 20 Meq PO DAILY Aspirin DR (Aspirin) 81 Mg Tabdr 81 Mg PO DAILY Lisinopril 5 Mg Tab 2.5 Mg PO DAILY Cardizem (Diltiazem HCl) 30 Mg Tab 30 Mg PO QID Coreg (Carvedilol) 6.25 Mg Tab 6.25 Mg PO Q12HR Coumadin (Warfarin) 5 Mg Tab 5 Mg PO DAILY@1600 start tomorrow if INR <3 Review of Systems Except as stated in HPI: all other systems reviewed are Neg General / Constitutional: No: Fever, Chills HENT: No: Headaches, Neck Pain Cardiovascular: No: Chest Pain or Discomfort, Palpitations Respiratory: Positive: Shortness of Breath (Chronic), No: Cough, Wheezing Gastrointestinal: Positive: Nausea, Vomiting, Abdominal Pain (Generalized in the lower abdominal area), Constipation, No: Diarrhea Genitourinary: Positive: Decreased Urinary Output, No: Dysuria Musculoskeletal: Positive: Edema (Chronic lower extremity edema), No: Pain Skin: Positive Other (Chronic lower extremity edema) Neurologic: Positive: Weakness (Generalized), No: Focal Abnormalities, Headache , Change in Mentation Physical Exam Narrative GENERAL: Elderly ill-appearing male in mild respiratory discomfort SKIN: Focused skin assessment warm/dry. HEAD: Atraumatic. Normocephalic. EYES: No scleral icterus. No injection or drainage. ENT: No nasal bleeding or discharge. Mucous membranes pink and dry.. NECK: Trachea midline. Supple. CARDIOVASCULAR: Sinus tachycardia with a rate in 120s. No obvious murmur or ectopy appreciated. RESPIRATORY: No accessory muscle use. Clear to auscultation. Breath sounds equal bilaterally. GASTROINTESTINAL: Abdomen soft, nondistended. There is tenderness to palpation is periumbilical and bilateral lower quadrants. No pulsatile masses. Positive mild guarding with no rebound. MUSCULOSKELETAL: No obvious deformities. No clubbing. No cyanosis. Trace bilateral tibial edema. There is chronic venous stasis changes noted in his pretibial areas. No draining lesions. NEUROLOGICAL: Awake and alert. No obvious cranial nerve deficits. Motor grossly within normal limits. Normal speech. Data Data Last Documented VS Vital Signs Date Time Temp Pulse Resp B/P (MAP) Pulse Ox O2 Delivery O2 Flow Rate FiO2 05/13/17 11:56 126 20 169/104 (125) 94 Nasal Cannula 5.00 05/13/17 09:55 97.6 Orders Orders Complete Blood Count With Diff (05/13/17 10:05) Comprehensive Metabolic Panel (05/13/17 10:05) Lipase (05/13/17 10:05) Lactic Acid (05/13/17 10:05) Urinalysis - C+S If Indicated (05/13/17 10:05) Ct Abd/Pel W Iv Contrast(Rout) (05/13/17 10:05) Iv Access Insert/Monitor (05/13/17 10:05) Ecg Monitoring (05/13/17 10:05) Oximetry (05/13/17 10:05) Ondansetron Inj (Zofran Inj) (05/13/17 10:15) Sodium Chloride 0.9% Flush (Ns Flush) (05/13/17 10:15) Abdomen, Upright Only (05/13/17 10:05) Chest, Single Ap (05/13/17 10:05) Sodium Chlorid 0.9% 500 Ml Inj (Ns 500 M (05/13/17 10:15) Sodium Chlor 0.9% 1000 Ml Inj (Ns 1000 M (05/13/17 10:15) Prothrombin Time / Inr (Pt) (05/13/17 10:08) Act Partial Throm Time (Ptt) (05/13/17 10:08) Ckmb (Isoenzyme) Profile (05/13/17 10:16) Troponin I (05/13/17 10:16) B-Type Natriuretic Peptide (05/13/17 10:16) Electrocardiogram (05/13/17 ) Iohexol 350 Inj (Omnipaque 350 Inj) (05/13/17 11:52) Ng Gastric Tube Insert/Monitor (05/13/17 12:40) Ceftriaxone Inj (Rocephin Inj) (05/13/17 12:45) Azithromycin Inj (Zithromax Inj) (05/13/17 12:45) Admit To Inpatient (05/13/17 ) Vital Signs (Adult) Q4H (05/13/17 13:04) Activity Oob With Assistance (05/13/17 13:04) Special Education Associate / Telemetry .CONTINUOUS (05/13/17 13:04) Intake + Output JUAN DIEGO.QSHIFT (05/13/17 13:04) Diet Npo (05/13/17 Lunch) Sodium Chloride 0.9% Flush (Ns Flush) (05/13/17 13:15) Sodium Chloride 0.9% Flush (Ns Flush) (05/13/17 21:00) Basic Metabolic Panel (Bmp) (05/14/17 06:00) Complete Blood Count With Diff (05/14/17 06:00) Pt Request For Service (05/13/17 13:04) Case Management Consult (05/13/17 13:04) Naloxone Inj (Narcan Inj) (05/13/17 13:15) Inpatient Certification (05/13/17 ) Consult General Surgery (05/13/17 ) ^ Watch For Or Notify (05/13/17 13:05) Furosemide Inj (Lasix Inj) (05/13/17 14:00) Potassium Chloride (Kcl) (05/13/17 14:00) Heparin-D5w 25,000 U/250 Ml (Heparin-D5w (05/13/17 14:00) Cbc No Diff, Includes Plts (05/16/17 06:00) Act Partial Throm Time (Ptt) (05/13/17 20:07) Occult Blood (Hemoccult) Stool (05/13/17 13:07) Ondansetron Inj (Zofran Inj) (05/13/17 13:15) Admit Order (Ed Use Only) (05/13/17 13:26) Labs Laboratory Tests Test 05/13/17 10:00 05/13/17 12:40 White Blood Count 6.1 TH/MM3 Red Blood Count 5.22 MIL/MM3 Hemoglobin 15.3 GM/DL Hematocrit 46.0 % Mean Corpuscular Volume 88.2 FL Mean Corpuscular Hemoglobin 29.3 PG Mean Corpuscular Hemoglobin Concent 33.2 % Red Cell Distribution Width 18.1 % Platelet Count 325 TH/MM3 Mean Platelet Volume 7.8 FL Neutrophils (%) (Auto) 75.5 % Lymphocytes (%) (Auto) 15.3 % Monocytes (%) (Auto) 8.1 % Eosinophils (%) (Auto) 0.6 % Basophils (%) (Auto) 0.5 % Neutrophils # (Auto) 4.6 TH/MM3 Lymphocytes # (Auto) 0.9 TH/MM3 Monocytes # (Auto) 0.5 TH/MM3 Eosinophils # (Auto) 0.0 TH/MM3 Basophils # (Auto) 0.0 TH/MM3 CBC Comment DIFF FINAL Differential Comment Prothrombin Time 12.7 SEC Prothromb Time International Ratio 1.3 RATIO Activated Partial Thromboplast Time 25.7 SEC Blood Urea Nitrogen 13 MG/DL Creatinine 0.93 MG/DL Random Glucose 93 MG/DL Total Protein 8.0 GM/DL Albumin 3.0 GM/DL Calcium Level 9.4 MG/DL Alkaline Phosphatase 74 U/L Aspartate Amino Transf (AST/SGOT) 22 U/L Alanine Aminotransferase (ALT/SGPT) 21 U/L Total Bilirubin 1.0 MG/DL Sodium Level 139 MEQ/L Potassium Level 3.9 MEQ/L Chloride Level 101 MEQ/L Carbon Dioxide Level 29.8 MEQ/L Anion Gap 8 MEQ/L Estimat Glomerular Filtration Rate 97 ML/MIN Lactic Acid Level 1.5 mmol/L Total Creatine Kinase 84 U/L Troponin I LESS THAN 0.02 NG/ML B-Type Natriuretic Peptide 1649 PG/ML Lipase 30 U/L Urine Color YELLOW Urine Turbidity CLEAR Urine pH 6.5 Urine Specific Harold 1.014 Urine Protein NEG mg/dL Urine Glucose (UA) NEG mg/dL Urine Ketones TRACE mg/dL Urine Occult Blood NEG Urine Nitrite NEG Urine Bilirubin NEG Urine Urobilinogen LESS THAN 2.0 MG/DL Urine Leukocyte Esterase SMALL Urine RBC 4 /hpf Urine WBC 3 /hpf Urine Squamous Epithelial Cells 2 /hpf Urine Mucus FEW /lpf Microscopic Urinalysis Comment CULT NOT INDICATED MDM Medical Decision Making Medical Screen Exam Complete: Yes Emergency Medical Condition: Yes Differential Diagnosis Bowel obstruction versus CHF versus pneumonia versus ACS Narrative Course 72-year-old male with a history of DVT, atrial fibrillation, CHF, chronic lower extremity ulcers, presents today with complaints of nausea vomiting since Friday. Patient denies any fevers, chills. He states he has not been able to hold down liquid or food since Friday. He denies any diarrhea, passing of gas. He states he has not had a bowel movement or had any lower GI movement since Friday. The patient has a small bowel obstruction noted on CT scan. Chest x-ray shows atelectasis versus infiltrate in left lower lung. Given this , patient will be admitted to the hospital. He has been started on Rocephin and Zithromax. He has had an NG tube placed. His INR is subtherapeutic at 1.3. Given his history of DVT, he will need to be bridged with heparin. [facility] to admit the patient to the service. Diagnosis Primary Impression: Small bowel obstruction Additional Impressions: Left lower lobe infiltrate History of DVT (deep vein thrombosis) Subtherapeutic international normalized ratio (INR) Persistent tachycardia History of CHF (congestive heart failure) Admitting Information Admitting Physician Requests: Admit Kalin Coyle MD May 13, 2017 10:16
[2017-05-13 10:29] LABS: AUTOMATED NEUTROPHIL # 4.6 TH/MM3 (1.8-7.7); BASOPHIL % 0.5 % (0.0-2.0); EOSINOPHIL % 0.6 % (0.0-4.0); HEMOGLOBIN 15.3 GM/DL (13.0-17.0); LYMPH % 15.3 % (9.0-44.0); LYMPHOCYTE # 0.9 TH/MM3 (1.0-4.8); MEAN CELL VOLUME 88.2 FL (80.0-100.0); MEAN CORPUSCULAR HEMOGLOBIN 29.3 PG (27.0-34.0); MEAN CORPUSCULAR HGB CONC 33.2 % (32.0-36.0); MEAN PLATELET VOLUME 7.8 FL (7.0-11.0); MONO % 8.1 % (0.0-8.0); MONOCYTE # 0.5 TH/MM3 (0-0.9); NEUT % 75.5 % (16.0-70.0); PLATELET COUNT 325 TH/MM3 (150-450); RED BLOOD COUNT 5.22 MIL/MM3 (4.50-5.90); RED CELL DISTRIBUTION WIDTH 18.1 % (11.6-17.2); WHITE BLOOD COUNT 6.1 TH/MM3 (4.0-11.0)
[2017-05-13 10:37] LABS: INTERNATIONAL NORMALIZED RATIO 1.3 RATIO; PROTHROMBIN TIME - PATIENT 12.7 SEC (9.8-11.6)
[2017-05-13 10:52] LABS: ALT (GPT) 21 U/L (12-78)
--- NOTE | 2017-05-13 10:54 | RADRPT ---
EXAM DATE/TIME: 05/13/2017 10:24 [facility] COMPARISON: No previous studies available for comparison. INDICATIONS : Nausea and vomiting. MEDICAL HISTORY : Hypertension. Chronic obstructive pulmonary disease. Congestive heart failure. SURGICAL HISTORY : None. ENCOUNTER: Initial ACUITY: 3 days PAIN SCORE: 3/10 LOCATION: Bilateral abdomen. FINDINGS: A single erect view of the abdomen demonstrates minimal left basilar density. No evidence of free in traperitoneal gas. The visualized bowel loops are unremarkable. No definite free air underneath the hemidiaphragm. Air appears to be contained within the stomach. CONCLUSION: 1. Minimal left basilar density. 2. No definite free air. Benton Hidalgo MD on May 13, 2017 at 10:47 Board Certified Radiologist. This report was verified electronically.
[2017-05-13 10:55] LABS: ALKALINE PHOSPHATASE 74 U/L (45-117); TROPONIN I LESS THAN 0.02 NG/ML (0.02-0.05)
--- NOTE | 2017-05-13 10:57 | RADRPT ---
EXAM DATE/TIME: 05/13/2017 10:22 [facility] COMPARISON: CHEST SINGLE AP, April 19, 2017, 12:27. INDICATIONS : Shortness of breath. MEDICAL HISTORY : Hypertension. Congestive heart failure. Chronic obstructive pulmonary disease. SURGICAL HISTORY : None. ENCOUNTER: Initial ACUITY: 1 day PAIN SCORE: 0/10 LOCATION: Bilateral chest FINDINGS: A single view of the chest demonstrates chronic interstitial densities. Left basilar atelectasis/infi ltrate. The cardiomediastinal contours are unremarkable. Osseous structures are intact. CONCLUSION: 1. Chronic interstitial lung disease. 2. Left basilar atelectasis/infiltrate. Benton Hidalgo MD on May 13, 2017 at 10:55 Board Certified Radiologist. This report was verified electronically.
[2017-05-13 10:59] LABS: AST (GOT) 22 U/L (15-37); BICARBONATE 29.8 MEQ/L (21.0-32.0); BLOOD UREA NITROGEN 13 MG/DL (7-18); CALCIUM 9.4 MG/DL (8.5-10.1); CHLORIDE 101 MEQ/L (98-107); CREATININE 0.93 MG/DL (0.60-1.30); GLOMERULAR FILTRATION RATE 97 ML/MIN (>89); GLUCOSE,RANDOM 93 MG/DL (74-106); SODIUM (NA) 139 MEQ/L (136-145)
[2017-05-13] MEDS ORDERED: IOHEXOL 350 MG/ML 10 ML VIAL (for RAD DIAG) IVCONTRAST ONE (11:52)
--- NOTE | 2017-05-13 12:34 | RADRPT ---
EXAM DATE/TIME: 05/13/2017 11:36 [facility] COMPARISON: No previous studies available for comparison. INDICATIONS : Vomiting for 3 days IV CONTRAST: 86 cc Omnipaque 350 (iohexol) IV ORAL CONTRAST: No oral contrast ingested. RADIATION DOSE: 9.42 CTDIvol (mGy) MEDICAL HISTORY : Hypertension. Chronic obstructive pulmonary disease. Cardiovascular disease SURGICAL HISTORY : None. ENCOUNTER: Initial ACUITY: 3 days PAIN SCALE: 2/10 LOCATION: upper quadrant TECHNIQUE: Volumetric scanning of the abdomen and pelvis was performed. Using automated exposure control and ad justment of the mA and/or kV according to patient size, radiation dose was kept as low as reasonably achievable to obtain optimal diagnostic quality images. DICOM format image data is available electro nically for review and comparison. FINDINGS: LOWER LUNGS: The visualized lower lungs are clear. LIVER: Homogeneous density without lesion. There is no dilation of the biliary tree. No calcified gallston es. Small amount of free fluid is identified surrounding the liver. SPLEEN: Normal size without lesion. PANCREAS: Within normal limits. KIDNEYS: Normal in size and shape. There is no mass, stone or hydronephrosis. ADRENAL GLANDS: Within normal limits. VASCULAR: Mild aneurysmal enlargement is identified of the infrarenal abdominal aorta. It reaches a maximum eevline meter of 4.3 cm. 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 The right measur es 3 cm in diameter and the left 2.5 cm. BOWEL/MESENTERY: A proximal to mid small bowel ileus is identified. There is an acute transition zone identified in th e mid abdomen however there is no evidence of currently obstructing mass. The distal small bowel and colon are collapsed. Multiple diverticula are noted throughout the colon there are no pericolonic inf lammatory changes. ABDOMINAL WALL: Within normal limits. RETROPERITONEUM: There is no lymphadenopathy. BLADDER: No wall thickening or mass. REPRODUCTIVE: Within normal limits. INGUINAL: There is no lymphadenopathy or hernia. MUSCULOSKELETAL: Within normal limits for patient age. CONCLUSION: 1. Mid to distal jejunal small bowel ileus with acute transition characteristic of high grade small b owel obstruction. 2. Uncomplicated colonic diverticulosis. 3. Mild ascites. 4. Uncomplicated colonic diverticulosis. Conor John MD on May 13, 2017 at 12:23 Board Certified Radiologist. This report was verified electronically.
[2017-05-13] MEDS ORDERED: cefTRIAXone INJ 1,000 MG in SODIUM CHLORIDE 0.9% INJ 100 ML IV ONE (12:45)
[2017-05-13] MEDS ORDERED: AZITHROMYCIN INJ 500 MG in SODIUM CHLOR 0.9% 250 ML INJ 250 ML IV ONE (12:45)
[2017-05-13 12:55] LABS: BILIRUBIN, URINE NEG (NEG); BLOOD, URINE NEG (NEG); GLUCOSE,URINE NEG (NEG); KETONE, URINE TRACE mg/dL (NEG); MUCUS URINE FEW /lpf (OCC); NITRITE,URINE NEG (NEG); PH, URINE 6.5 (5.0-8.5); SQUAMOUS EPITHELIAL CELL URINE 2 /hpf (0-5); URINE COLOR YELLOW (YELLW/STRAW); URINE LEUKOCYTE ESTERASE SMALL (NEG)
[2017-05-13] MEDS ORDERED: NALOXONE HCL 0.4 MG/ML AMP IV PUSH PRN (13:15)
[2017-05-13] MEDS ORDERED: FUROSEMIDE 40 MG/4 ML VIAL IV PUSH ONE (14:00)
[2017-05-13] MEDS ORDERED: POTASSIUM CHLORIDE 20 MEQ CONTROLLED RELEASE TAB PO ONE (14:00)
--- NOTE | 2017-05-13 15:03 | HHI.HP ---
[facility] Unknown Admission Diagnosis left lower lobe pneumonia, small bowel obstruction, Diagnoses: Travel History International Travel<30 Days: No Contact w/Intl Traveler <30 Da: No Traveled to Known Affected Are: No History of Present Illness starting friday or friday , abdominal pain, nausea vomiting , no bm not passign gas no prior diarrhea Past Family Social History Past Medical History copd on home oxygen afib on coumadin chf ef 20% htn bilateral LE DVT Past Surgical History 1971 bowel blockage? hernia sx in the Allergies: Coded Allergies: Penicillins (Verified Allergy, Unknown, 04/03/17) Family History none that he knows of Social History quit smoking 2012 social drinker, quit in 1999 no drugs lives on his own still driving once in a while walks with a walker Physical Exam Vital Signs Vital Signs Date Time Temp Pulse Resp B/P (MAP) Pulse Ox O2 Delivery O2 Flow Rate FiO2 05/13/17 14:26 98 18 135/79 (97) 94 Nasal Cannula 5.00 05/13/17 11:56 126 20 169/104 (125) 94 Nasal Cannula 5.00 05/13/17 11:56 94 Nasal Cannula 5.00 05/13/17 09:55 97.6 90 18 179/103 (128) 94 Nasal Cannula 5.00 05/13/17 09:55 18 05/13/17 09:50 97.6 92 18 179/103 (128) 81 Physical Exam GENERAL: This is a well-nourished, well-developed patient, in no apparent distress. SKIN: No rashes, ecchymoses or lesions. Cool and dry. HEAD: Atraumatic. Normocephalic. No temporal or scalp tenderness. EYES: Pupils equal round and reactive. Extraocular motions intact. No scleral icterus. No injection or drainage. ENT: Nose without bleeding, purulent drainage or septal hematoma. Throat without erythema, tonsillar hypertrophy or exudate. Uvula midline. Airway patent. NECK: Trachea midline. No JVD or lymphadenopathy. Supple, nontender, no meningeal signs. CARDIOVASCULAR: Regular rate and rhythm without murmurs, gallops, or rubs. RESPIRATORY: Clear to auscultation. Breath sounds equal bilaterally. No wheezes , rales, or rhonchi. GASTROINTESTINAL: Abdomen soft, non-tender, nondistended. No hepato-splenomegaly , or palpable masses. No guarding. MUSCULOSKELETAL: Extremities without clubbing, cyanosis, or edema. No joint tenderness, effusion, or edema noted. No calf tenderness. Negative Homans sign bilaterally. NEUROLOGICAL: Awake and alert. Cranial nerves II through XII intact. Motor and sensory grossly within normal limits. Five out of 5 muscle strength in all muscle groups. Normal speech. Laboratory Laboratory Tests Test 05/13/17 10:00 05/13/17 12:40 White Blood Count 6.1 Red Blood Count 5.22 Hemoglobin 15.3 Hematocrit 46.0 Mean Corpuscular Volume 88.2 Mean Corpuscular Hemoglobin 29.3 Mean Corpuscular Hemoglobin Concent 33.2 Red Cell Distribution Width 18.1 Platelet Count 325 Mean Platelet Volume 7.8 Neutrophils (%) (Auto) 75.5 Lymphocytes (%) (Auto) 15.3 Monocytes (%) (Auto) 8.1 Eosinophils (%) (Auto) 0.6 Basophils (%) (Auto) 0.5 Neutrophils # (Auto) 4.6 Lymphocytes # (Auto) 0.9 Monocytes # (Auto) 0.5 Eosinophils # (Auto) 0.0 Basophils # (Auto) 0.0 CBC Comment DIFF FINAL Differential Comment Prothrombin Time 12.7 Prothromb Time International Ratio 1.3 Activated Partial Thromboplast Time 25.7 Blood Urea Nitrogen 13 Creatinine 0.93 Random Glucose 93 Total Protein 8.0 Albumin 3.0 Calcium Level 9.4 Alkaline Phosphatase 74 Aspartate Amino Transf (AST/SGOT) 22 Alanine Aminotransferase (ALT/SGPT) 21 Total Bilirubin 1.0 Sodium Level 139 Potassium Level 3.9 Chloride Level 101 Carbon Dioxide Level 29.8 Anion Gap 8 Estimat Glomerular Filtration Rate 97 Lactic Acid Level 1.5 Total Creatine Kinase 84 Troponin I LESS THAN 0.02 B-Type Natriuretic Peptide 1649 Lipase 30 Urine Color YELLOW Urine Turbidity CLEAR Urine pH 6.5 Urine Specific [place] 1.014 Urine Protein NEG Urine Glucose (UA) NEG Urine Ketones TRACE Urine Occult Blood NEG Urine Nitrite NEG Urine Bilirubin NEG Urine Urobilinogen LESS THAN 2.0 Urine Leukocyte Esterase SMALL Urine RBC 4 Urine WBC 3 Urine Squamous Epithelial Cells 2 Urine Mucus FEW Microscopic Urinalysis Comment CULT NOT INDICATED Result Diagram: 05/13/17 1000 05/13/17 1000 Caprini VTE Risk Assessment Caprini Risk Assessment Model Point Value = 1 Point Value = 2 Point Value = 3 Point Value = 5 Age 41-60 Minor surgery BMI > 25 kg/m2 Swollen legs Varicose veins or History of unexplained or recurrent spontaneous Oral contraceptives or hormone replacement Sepsis (< 1 month) Serious lung disease, including pneumonia (< 1 month) Abnormal pulmonary function Acute myocardial infarction Congestive heart failure (< 1 month) History of inflammatory bowel disease Medical patient at bed rest Age 61-74 Arthroscopic surgery Major open surgery (> 45 min) Laparoscopic surgery (> 45 min) Malignancy Confined to bed (> 72 hours) Immobilizing plaster cast Central venous access Age >= 75 History of VTE Family history of VTE Factor V Leiden Prothrombin [id number] Lupus anticoagulant Anticardiolipin antibodies Elevated serum homocysteine Heparin-induced thrombocytopenia Other congenital or acquired thrombophilia Stroke (< 1 month) Elective arthroplasty Hip, pelvis, or leg fracture Acute spinal cord injury (< 1 month) Prophylaxis Regimen Total Risk Factor Score Risk Level Prophylaxis Regimen 0-1 Low Early ambulation 2 Moderate Order ONE of the following: *Sequential Compression Device (SCD) *Heparin 5000 units SQ BID 3-4 Higher Order ONE of the following medications: *Heparin 5000 units SQ TID *Enoxaparin/Lovenox 40 mg SQ daily (WT < 150 kg, CrCl > 30 mL/min) *Enoxaparin/Lovenox 30 mg SQ daily (WT < 150 kg, CrCl > 10-29 mL/min) *Enoxaparin/Lovenox 30 mg SQ BID (WT < 150 kg, CrCl > 30 mL/min) AND/OR *Sequential Compression Device (SCD) 5 or more Highest Order ONE of the following medications: *Heparin 5000 units SQ TID (Preferred with Epidurals) *Enoxaparin/Lovenox 40 mg SQ daily (WT < 150 kg, CrCl > 30 mL/min) *Enoxaparin/Lovenox 30 mg SQ daily (WT < 150 kg, CrCl > 10-29 mL/min) *Enoxaparin/Lovenox 30 mg SQ BID (WT < 150 kg, CrCl > 30 mL/min) AND *Sequential Compression Device (SCD) Assessment and Plan Assessment and Plan high grade SBO bilateral interstial edema hx of chf ef 20% subtherapeutic INR hx of afib attempted ngt multiple times pt was refusing initially finally had it done under sedation by ER team intermittent low suction start heparin drip in case pt needs to go for sx general sx consult npo recieved iv fluids in ER will be cautious due to heart failure but may need further hydration in am based on clinical status and improvement of sbo will continue coverage for pneumonia as pt is high risk Physician Certification Order for Inpatient Services The services are ordered in accordance with Medicare regulations or non- Medicare payer requirements, as applicable. In the case of services not specified as inpatient-only, they are appropriately provided as inpatient services in accordance with the 2-midnight benchmark. days is the estimated time the patient will need to remain in the hospital, assuming treatment plan goals are met and no additional complications. Smita Soni MD May 13, 2017 15:03
[2017-05-13] MEDS ORDERED: LIDOCAINE VISCOUS 2% SOLN 15 ML UDC SWISH-SPIT ONE (15:30)
[2017-05-13] MEDS ORDERED: ETOMIDATE 20 MG/10 ML VIAL IV PUSH ONE (16:00)
--- NOTE | 2017-05-13 19:00 | RADRPT ---
EXAM DATE/TIME: 05/13/2017 18:21 [facility] COMPARISON: CHEST SINGLE AP, May 13, 2017, 10:22. INDICATIONS : NG tube placement. MEDICAL HISTORY : Hypertension. Chronic obstructive pulmonary disease. Cardiovascular disease SURGICAL HISTORY : None. ENCOUNTER: Subsequent ACUITY: 1 day PAIN SCORE: 0/10 LOCATION: Bilateral chest FINDINGS: The cardiac silhouette is enlarged in transverse diameter. A nasogastric tube is in place with its ti p in the stomach. There is prominence of the central pulmonary vasculature with indistinct vascular m argins compatible with vascular congestion but no evidence of overt failure. No pleural effusions are identified. CONCLUSION: 1. Nasogastric tube in the stomach Tyron Mi MD on May 13, 2017 at 18:58 Board Certified Radiologist. This report was verified electronically.
[2017-05-13] MEDS: ONDANSETRON HCL 4 MG/2 ML VIAL IV PUSH PRN (21:23)
[2017-05-13] MEDS: SODIUM CHLORIDE 0.9% FLUSH 10 ML FLUSH IV FLUSH SCH (21:23)
--- NOTE | 2017-05-13 21:54 | EKG ---
Date Performed: 05/13/2017 Time Performed: 09:58:44 PTAGE: 72 years EKG: ATRIAL TACHYCARDIA ST DEVIATION AND MODERATE T-WAVE ABNORMALITY ABNORMAL EG PREVIOUS TRACING : 04/03/2017 09.34 Since the prior tracing, there has been no significan t change DOCTOR: Nura Hicks Interpretating Date/Time 05/13/2017 21:52:51
[2017-05-13] MEDS: HEPARIN-D5W 25,000 U/250 ML 250 ML IV PRN (23:01)
[2017-05-14] VITALS (13 sets, daily range): BP systolic 136–169; BP diastolic 86–99; PULSE 86–105; RESP 16–29; TEMP 97.7–98.8; O2SAT 77–100
[2017-05-14 06:09] LABS: AUTOMATED NEUTROPHIL # 6.7 TH/MM3 (1.8-7.7); BASOPHIL % 0.5 % (0.0-2.0); EOSINOPHIL # 0.1 TH/MM3 (0-0.4); HEMATOCRIT 40.7 % (39.0-51.0); HEMOGLOBIN 13.7 GM/DL (13.0-17.0); LYMPH % 15.2 % (9.0-44.0); LYMPHOCYTE # 1.4 TH/MM3 (1.0-4.8); MEAN CELL VOLUME 87.7 FL (80.0-100.0); MEAN CORPUSCULAR HEMOGLOBIN 29.5 PG (27.0-34.0); MEAN CORPUSCULAR HGB CONC 33.7 % (32.0-36.0); MEAN PLATELET VOLUME 7.7 FL (7.0-11.0); MONO % 12.7 % (0.0-8.0); MONOCYTE # 1.2 TH/MM3 (0-0.9); NEUT % 70.6 % (16.0-70.0); PLATELET COUNT 303 TH/MM3 (150-450); RED BLOOD COUNT 4.64 MIL/MM3 (4.50-5.90); RED CELL DISTRIBUTION WIDTH 18.2 % (11.6-17.2); WHITE BLOOD COUNT 9.5 TH/MM3 (4.0-11.0)
[2017-05-14 06:32] LABS: BICARBONATE 30.7 MEQ/L (21.0-32.0); CALCIUM 8.6 MG/DL (8.5-10.1); CREATININE 0.65 MG/DL (0.60-1.30)
--- NOTE | 2017-05-14 09:15 | MB ---
cc: Raleigh Murray MD DATE OF CONSULT: 05/13/2017 REASON FOR CONSULTATION: Questionable small bowel obstruction. HISTORY OF PRESENT ILLNESS: This is a pleasant, unfortunate 72-year-old gentleman. He recently got admitted to the hospital, into the emergency room with a diagnosis of pneumonia. Imaging that was done during the workup was thought to show a small bowel obstruction. Surgery was consulted to evaluate small bowel obstruction. He recently in the emergency room needed to be sedated, to have an NG tube placed. The history is difficult to obtain from the patient because he just got a little versed and he is a little out of it and so this is relied on the computer system and talked to the ER physician. He had come in with some nausea since Friday and some mild abdominal discomfort. He has a history of CHF, atrial fibrillation, hypertension and oxygen dependance. He was also recently diagnosed with bilateral lower extremity DVTs PAST MEDICAL HISTORY: Significant for the above plus diabetes and these respiratory problems that he has been previously treated for in the hospital. He has severe cardiac disorder of his CHF. OTHER REVIEW OF SYSTEMS: He denies any chest pain, but he has this shortness of breath with a cough and nausea, vomiting. He does not like the NG tube now. Generalized malaise and weakness as well. PHYSICAL EXAMINATION: GENERAL: Elderly gentleman. He is resting after having an NG in place. It is slightly bloody. NECK: Otherwise supple. PULMONARY: Chest clear. CARDIOVASCULAR: Regular rate, tachycardic. ABDOMEN: Soft, nondistended, without rebound or guarding. EXTREMITIES: Mild edema. NEUROLOGIC: Sedate. LABORATORY DATA: He had a white count of 6, H and H of 15 and 46. Chemistry showed creatinine 0.93. His BNP is 1649. IMAGING STUDIES: Chest x-ray shows the NG tube in the stomach. CT scan was read as mild distal jejunal small bowel ileus, with maybe a high grade obstruction, with colonic diverticulosis. ASSESSMENT AND PLAN: This is a 72-year-old gentleman who is poor historian, has bilateral lower extremity DVTs He has pulmonary issues, on home O2, with findings suggestive of possibly an ileus with pneumonia that is going on. When he is awake, I will ask him more about his surgical history of his abdomen. At this time, he does not appear to have a surgical abdomen. We will watch him closely while his pneumonia and pulmonary/cardiac status is treated and maximized, in case he needs surgery. May need a small bowel follow-through series earlier to delineate if he just has an ileus versus obstruction MD LOI Kang/JARED , 11:11 PM , 12:08 AM MARGOT
[2017-05-14] MEDS: SODIUM CHLORIDE 0.9% FLUSH 10 ML FLUSH IV FLUSH SCH ×2 (09:37→21:00)
--- NOTE | 2017-05-14 10:11 | HHI.PR ---
cc: Raleigh Murray MD Subjective Subjective Notes DAILY PROGRESS NOTE FOR SURGICAL ATTENDING, DR. RALEIGH MURRAY I'm still not passing gas I don't have that much pain Have Something to Drink I Don't like This Tube in My Nose Objective Vitals/I&O Vital Signs Date Time Temp Pulse Resp B/P (MAP) Pulse Ox O2 Delivery O2 Flow Rate FiO2 05/14/17 07:35 98.2 97 20 147/88 (107) 94 05/13/17 18:05 Nasal Cannula 5.00 05/13/17 18:00 100 Labs Laboratory Tests Test 05/13/17 12:40 05/13/17 21:36 05/14/17 05:43 Urine Color YELLOW Urine Turbidity CLEAR Urine pH 6.5 Urine Specific [place] 1.014 Urine Protein NEG Urine Glucose (UA) NEG Urine Ketones TRACE Urine Occult Blood NEG Urine Nitrite NEG Urine Bilirubin NEG Urine Urobilinogen LESS THAN 2.0 Urine Leukocyte Esterase SMALL Urine RBC 4 Urine WBC 3 Urine Squamous Epithelial Cells 2 Urine Mucus FEW Microscopic Urinalysis Comment CULT NOT INDICATED Activated Partial Thromboplast Time 26.0 33.5 White Blood Count 9.5 Red Blood Count 4.64 Hemoglobin 13.7 Hematocrit 40.7 Mean Corpuscular Volume 87.7 Mean Corpuscular Hemoglobin 29.5 Mean Corpuscular Hemoglobin Concent 33.7 Red Cell Distribution Width 18.2 Platelet Count 303 Mean Platelet Volume 7.7 Neutrophils (%) (Auto) 70.6 Lymphocytes (%) (Auto) 15.2 Monocytes (%) (Auto) 12.7 Eosinophils (%) (Auto) 1.0 Basophils (%) (Auto) 0.5 Neutrophils # (Auto) 6.7 Lymphocytes # (Auto) 1.4 Monocytes # (Auto) 1.2 Eosinophils # (Auto) 0.1 Basophils # (Auto) 0.0 CBC Comment DIFF FINAL Differential Comment Blood Urea Nitrogen 12 Creatinine 0.65 Random Glucose 89 Calcium Level 8.6 Sodium Level 140 Potassium Level 3.3 Chloride Level 102 Carbon Dioxide Level 30.7 Anion Gap 7 Estimat Glomerular Filtration Rate 146 Radiology Awaiting small bowel follow-through series Last Impressions Chest X-Ray 05/13/17 1811 Signed Impressions: Service Date/Time: Saturday, May 13, 2017 18:21 - CONCLUSION: 1. Nasogastric tube in the stomach Tyron Mi MD Abdomen/Pelvis CT 05/13/17 1005 Signed Impressions: Service Date/Time: Saturday, May 13, 2017 11:36 - CONCLUSION: 1. Mid to distal jejunal small bowel ileus with acute transition characteristic of high grade small bowel obstruction. 2. Uncomplicated colonic diverticulosis. 3. Mild ascites. 4. Uncomplicated colonic diverticulosis. Conor John MD Abdomen X-Ray 05/13/17 1005 Signed Impressions: Service Date/Time: Saturday, May 13, 2017 10:24 - CONCLUSION: 1. Minimal left basilar density. 2. No definite free air. Benton Hidalgo MD Cardiovascular: Regular Lungs: Clear Abdomen: Non-distended, Non-tender, Other (NG tube in placeMinimal output from NG tubeAbdomen very soft bowel sounds throughout) Extremities: No edema, Perfused Narrative Exam Not much recorded from NG tube A/P Problem List: (1) Ileus ICD Codes: K56.7 - Ileus, unspecified Status: Acute (2) Small bowel obstruction ICD Codes: K56.609 - Unspecified intestinal obstruction, unspecified as to partial versus complete obstruction Status: Acute (3) History of CHF (congestive heart failure) ICD Codes: Z86.79 - Personal history of other diseases of the circulatory system Status: Acute (4) DVT (deep venous thrombosis) ICD Codes: I82.409 - Acute embolism and thrombosis of unspecified deep veins of unspecified lower extremity Status: Acute (5) Atrial fibrillation ICD Codes: I48.91 - Unspecified atrial fibrillation (6) History of DVT (deep vein thrombosis) ICD Codes: Z86.718 - Personal history of other venous thrombosis and embolism Status: Acute (7) film cutter (current) use of anticoagulants ICD Codes: Z79.01 - film cutter (current) use of anticoagulants Status: Acute Assessment and Plan 72 old gentleman who was admitted to the hospital for small bowel obstruction nausea vomiting urinary tract infection he is presently on a heparin drip He's not having much out of his NG tube advance to clear liquids because he says he is very thirsty order a small bowel follow-through series to delineate if he does have an obstruction If surgical intervention required we'll have to hold the heparin Attending Statement NOTE FOR SURGICAL ATTENDING, DR. RALEIGH MURRAY I agree with above assessment and plan. The exam, history, and the medical decision-making described in the above note were completed with the assistance of the mid-level provider. I reviewed and agree with the findings presented. I attest that I had a [id number] encounter with the patient on the same day, and personally performed and documented my assessment and findings in the medical record. The following services were provided during this hospital visit: Chart data review, vital sign assessments/reviewing monitor data Review of consultations notes if present. Medication orders/review and/or management Ordering and/or reviewing lab tests Ordering and/or interpreting/reviewing x-rays and/or diagnostic studies Care of the patient and discussion of the patient with the care team Documentation time To help prompt me to consider important information that might be impacting today's encounter and assessment, information from prior notes written by myself or my colleagues may have been "brought forward/copy and pasted" into today's note. Raleigh Murray MD May 14, 2017 10:11
--- NOTE | 2017-05-14 11:07 | RADRPT ---
EXAM DATE/TIME: 05/14/2017 10:01 [facility] COMPARISON: CT ABDOMEN & PELVIS W CONTRAST, May 13, 2017, 11:36. INDICATIONS : Evaluate for small bowel obstruction. MEDICAL HISTORY : Hypertension. Chronic obstructive pulmonary disease. Cardiovascular disease SURGICAL HISTORY : None. ENCOUNTER: Subsequent ACUITY: 2 days PAIN SCORE: 4/10 LOCATION: Right lower quadrant Abdomen FINDINGS: 2 supine frontal views of the abdomen demonstrate abnormally dilated small bowel in the left upper qu adrant and mid abdomen measuring up to 4.6 cm. Nasogastric tube overlies the stomach. There is a pauc ity of distal small bowel and ascending and colon gas. No organomegaly is present. Contrast opacified urine is within the urinary bladder. CONCLUSION: Persistent abnormal small bowel gas pattern with proximal dilated small bowel measuring up to 4.6 cm. Findings are consistent with small bowel obstruction in the mid small bowel as documented on yesterd ay's CT. Kush Catalan MD on May 14, 2017 at 11:02 Board Certified Radiologist. This report was verified electronically.
[2017-05-14] MEDS ORDERED: DIATRIZOATE MEGLUM/DIATRIZOATE SOD 120 ML BTL (for RAD DIAG) NG ONE (11:29)
[2017-05-14] MEDS ORDERED: RESP: ALBUTEROL 2.5 MG/IPRATROPIUM 0.5 MG NEB (SCH) NEB (15:45)
[2017-05-14] MEDS ORDERED: FUROSEMIDE 20 MG/2 ML VIAL IV PUSH ONE (16:00)
[2017-05-14] MEDS ORDERED: predniSONE 20 MG TAB PO SCH (16:00)
[2017-05-14] MEDS ORDERED: PILL SPLITTER OTHER PRN (16:00)
[2017-05-14] MEDS ORDERED: POTASSIUM CHLORIDE 25 MEQ EFFERVESCENT TAB PO ONE (16:00)
[2017-05-14] MEDS: HEPARIN-D5W 25,000 U/250 ML 250 ML IV PRN (16:01)
--- NOTE | 2017-05-14 16:27 | HHI.PR ---
Subjective Remarks The pt has not been passing gas. He has been nauseous. He says his tongue is dry. Discussed with nursing at the bedside. Objective Vitals Vital Signs Date Time Temp Pulse Resp B/P (MAP) Pulse Ox O2 Delivery O2 Flow Rate FiO2 05/14/17 07:35 98.2 97 20 147/88 (107) 94 05/14/17 04:32 97.7 104 18 159/92 (114) 95 05/14/17 00:34 98.0 86 18 169/91 (117) 95 05/13/17 20:21 97.9 83 18 162/89 (113) 93 05/13/17 19:04 05/13/17 18:05 82 18 162/90 (114) 95 Nasal Cannula 5.00 05/13/17 18:00 95 15.00 100 I/O 05/13/17 05/13/17 05/13/17 05/14/17 05/14/17 05/14/17 07:00 15:00 23:00 07:00 15:00 23:00 Intake Total 1500 ml 350 ml Output Total 600 ml 550 ml Balance 900 ml 350 ml -550 ml Intake IV Total 1500 ml 350 ml Output Urine Total 600 ml 300 ml Gastric Drainage Total 250 ml # Voids 3 Result Diagram: 05/14/17 0543 05/14/17 0543 Imaging Last Impressions Abdomen X-Ray 05/14/17 0000 Signed Impressions: Service Date/Time: Sunday, May 14, 2017 10:01 - CONCLUSION: Persistent abnormal small bowel gas pattern with proximal dilated small bowel measuring up to 4.6 cm. Findings are consistent with small bowel obstruction in the mid small bowel as documented on yesterday's CT. Kush Catalan MD Chest X-Ray 05/13/17 1811 Signed Impressions: Service Date/Time: Saturday, May 13, 2017 18:21 - CONCLUSION: 1. Nasogastric tube in the stomach Tyron Mi MD Abdomen/Pelvis CT 05/13/17 1005 Signed Impressions: Service Date/Time: Saturday, May 13, 2017 11:36 - CONCLUSION: 1. Mid to distal jejunal small bowel ileus with acute transition characteristic of high grade small bowel obstruction. 2. Uncomplicated colonic diverticulosis. 3. Mild ascites. 4. Uncomplicated colonic diverticulosis. Conor John MD Objective Remarks GENERAL: This is a well-nourished, well-developed patient, in no apparent distress. SKIN: No rashes, ecchymoses or lesions. Cool and dry. HEAD: Atraumatic. Normocephalic. No temporal or scalp tenderness. EYES: Pupils equal round and reactive. Extraocular motions intact. No scleral icterus. No injection or drainage. ENT: NGT in place. NECK: Trachea midline. No JVD or lymphadenopathy. Supple, nontender, no meningeal signs. CARDIOVASCULAR: Regular rate and rhythm without murmurs, gallops, or rubs. RESPIRATORY: Clear to auscultation. Breath sounds equal bilaterally. No wheezes , rales, or rhonchi. GASTROINTESTINAL: Decreased bowel sounds, soft. MUSCULOSKELETAL: Extremities without clubbing, cyanosis, or edema. No joint tenderness, effusion, or edema noted. NEUROLOGICAL: Awake and alert. Cranial nerves II through XII intact. Motor and sensory grossly within normal limits. Five out of 5 muscle strength in all muscle groups. Normal speech. Medications and IVs Current Medications Medications (Trade) Dose Ordered Sig/Deacon Route Start Time Stop Time Status Last Admin (NS Flush) 2 ml UNSCH PRN IV FLUSH 05/13/17 13:15 (NS Flush) 2 ml BID IV FLUSH 05/13/17 21:00 05/14/17 09:37 (Narcan Inj) 0.4 mg UNSCH PRN IV PUSH 05/13/17 13:15 Heparin Sodium/ Dextrose 250 ml @ 15 mls/hr TITRATE PRN IV 05/13/17 14:00 05/14/17 16:01 (Zofran Inj) 4 mg Q6HR PRN IV PUSH 05/13/17 13:15 05/13/17 21:23 (Coreg) 6.25 mg Q12HR PO 05/14/17 21:00 (Santyl Oint) 1 applic DAILY TOPICAL 05/15/17 09:00 (Cardizem) 30 mg QID PO 05/14/17 18:00 (Colace) 100 mg BID PO 05/14/17 21:00 (Lasix) 40 mg BID@,18 PO 05/14/17 18:00 (Prinivil) 2.5 mg DAILY PO 05/15/17 09:00 (KCl) 20 meq DAILY PO 05/15/17 09:00 (Deltasone) 20 mg DAILY PO 05/14/17 16:00 05/14/17 16:06 (Duoneb Neb) 1 ampule Q2HR NEB PRN NEB 05/14/17 15:45 (Duoneb Neb) 1 ampule Q6HR WHILE AWAKE NEB NEB 05/14/17 15:45 (Pill Splitter) 1 ea UNSCH PRN OTHER 05/14/17 16:00 A/P Assessment and Plan High grade SBO Attempted ngt multiple times, pt was refusing initially, finally had it done under sedation by ER team. Surgical consult appreciated. - small bowel series. - follow up with surgery. - continue NGT. - keep pt NPO. Acute on chronic respiratory failure/ Chronic systolic CHF/ COPD Recent 2D echocardiogram with EF 20-25%. CXR with interstitial lung disease/ consolidation at the left base. Requiring ventimask. - continue oxygen as needed, uses 5 L at home. - Lasix PO. - check ABG, repeat CXR. - continue cardiac regimen BRISEYDA and BB. - continue bronchodilator, incentive spirometry. - PT/ OT. - Continue prednisone. Bilateral DVT US with bilateral DVT, already on Warfarin. - hold Coumadin, on heparin gtt. Atrial fibrillation with RVR - heparin gtt. - continue diltiazem and Coreg. - telemetry. DVT prophylaxis: Heparin gtt Mitch Catherine DO May 14, 2017 16:27
--- NOTE | 2017-05-14 16:41 | RADRPT ---
EXAM DATE/TIME: 05/14/2017 15:46 [facility] COMPARISON: CT ABDOMEN & PELVIS W CONTRAST, May 13, 2017, 11:36. CHEST SINGLE AP, May 13, 2017, 18:21. INDICATIONS : Short of breath. MEDICAL HISTORY : Hypertension. Chronic obstructive pulmonary disease. Cardiovascular disease. SURGICAL HISTORY : None. ENCOUNTER: Subsequent ACUITY: 2 days PAIN SCORE: Non-responsive. LOCATION: Bilateral chest FINDINGS: Portable AP view of the chest demonstrates a normal-sized cardiac silhouette. Nasogastric tube is pre sent. Lungs are underinflated with mild bibasilar opacity. No pleural effusion or pneumothorax is anjum ntified. EKG lines overlie the patient. Oral contrast material is present within the stomach. CONCLUSION: Underinflation with mild bibasilar opacity most likely representing atelectasis. Otherwise, no acute process is identified. Kush Catalan MD on May 14, 2017 at 16:39 Board Certified Radiologist. This report was verified electronically.
--- NOTE | 2017-05-14 17:25 | PD.CONS ---
[facility] Service Critical Care Medicine Consult Requested By Dr. Catherine Reason for Consult Acute hypoxemic respiratory failure Acute systolic heart failure exacerbation COPD Small bowel obstruction Hypokalemia Primary Care Physician Unknown History of Present Illness Patient is a 72-year-old -[place] male with past medical history significant for COPD on home oxygen, chronic systolic heart failure EF 20-25%, chronic atrial fibrillation, bilateral lower extremity DVT on Coumadin, who was admitted to the hospitalist service on 05/13/2017 with history of nausea, vomiting with no diarrhea, not passing gas or stools for last 2 days. ER workup which included a CT of the abdomen pelvis showed small bowel obstruction which was high-grade. General surgery was consulted and patient was admitted to the floor. He was kept n.p.o. and NGT was placed. He was placed on a heparin drip for subtherapeutic INR. Today Halicat was called as patient became acutely hypoxemic. His O2 saturation went down to low 70s and was placed on 100% nonrebreather. Stat chest x-ray showed increasing interstitial edema and pulmonary vascular congestion indicating a CHF exacerbation. I evaluated the patient in the ICU. He is in a moderate respiratory distress currently on 100% nonrebreather. Physical exam revealed elevated JVD and bibasilar crackles. It appears that patient has acute systolic heart failure exacerbation. I will give IV Lasix 40 mg 1 now and scheduled 40 every 12. If his condition does not improve with the above measures patient may need endotracheal intubation, he is not a candidate for BiPAP due to significant small bowel obstruction and risk of aspiration. SB series is pending at this time, and Dr. Murray thinks it is ileus. Start IV Reglan, keep K>4 Review of Systems ROS Limitations: Clinical Condition, Other (as per HPI) Past Family Social History Allergies: Coded Allergies: Penicillins (Verified Allergy, Unknown, 04/03/17) Past Medical History Copd on home oxygen Chronic atrial fibrillation on Coumadin Chronic systolic CHF ef 20% Bilateral LE DVT Hypertension Past Surgical History 1971 bowel blockage? Hernia surgery in the 1980s Reported Medications Oxygen (O2) Santyl (Collagenase) 250 Unit/Gram Oin 1 Applic TOPICAL DAILY [Gentamicin 0.1% Cream] 15 APPLIC/15 GM Cr 1 Applic TOPICAL DAILY Prednisone 20 Mg Tab 20 Mg PO DAILY Dok (Docusate Sodium) 100 Mg Cap 100 Mg PO BID Furosemide 40 Mg Tab 40 Mg PO BID@09,18 Potassium Chloride Microencaps 20 Meq Tab 20 Meq PO DAILY Aspirin DR (Aspirin) 81 Mg Tabdr 81 Mg PO DAILY Lisinopril 5 Mg Tab 2.5 Mg PO DAILY Cardizem (Diltiazem HCl) 30 Mg Tab 30 Mg PO QID Coreg (Carvedilol) 6.25 Mg Tab 6.25 Mg PO Q12HR Coumadin (Warfarin) 5 Mg Tab 5 Mg PO DAILY@1600 Active Ordered Medications Reviewed Family History He does not give any significant history of heart disease Social History Quit smoking 2012 Physical Exam Vital Signs Vital Signs Date Time Temp Pulse Resp B/P (MAP) Pulse Ox O2 Delivery O2 Flow Rate FiO2 05/14/17 16:38 96 05/14/17 16:37 98.4 99 22 136/86 (103) 77 05/14/17 16:27 92 Venturi Mask 6.00 50 05/14/17 07:35 98.2 97 20 147/88 (107) 94 05/14/17 04:32 97.7 104 18 159/92 (114) 95 05/14/17 00:34 98.0 86 18 169/91 (117) 95 05/13/17 20:21 97.9 83 18 162/89 (113) 93 05/13/17 19:04 05/13/17 18:05 82 18 162/90 (114) 95 Nasal Cannula 5.00 05/13/17 18:00 95 15.00 100 Physical Exam GENERAL: Ill-appearing male in respiratory distress currently on 100 % NRB SKIN: warm/dry. HEAD: Atraumatic. Normocephalic. EYES: No scleral icterus. No injection or drainage. ENT: No nasal bleeding or discharge. Mucous membranes dry NECK: Trachea midline. Supple. JVD+ CARDIOVASCULAR: S1-S2 heard normally no S3. No murmurs dictated heart sounds are distant RESPIRATORY: Some accessory muscle use. Breath sounds equal bilaterally with few basilar crackles GASTROINTESTINAL: Abdomen soft, distended. Mild TTP. Bedside ultrasound does not show any significant ascites but dilated bowel loops MUSCULOSKELETAL: Trace bilateral pretibial edema. Bilateral chronic venous stasis changes NEUROLOGICAL: Awake and alert. Motor grossly within normal limits. Normal speech. Laboratory Laboratory Tests Test 05/13/17 21:36 05/14/17 05:43 05/14/17 15:14 05/14/17 16:30 Activated Partial Thromboplast Time 26.0 33.5 73.9 White Blood Count 9.5 Red Blood Count 4.64 Hemoglobin 13.7 Hematocrit 40.7 Mean Corpuscular Volume 87.7 Mean Corpuscular Hemoglobin 29.5 Mean Corpuscular Hemoglobin Concent 33.7 Red Cell Distribution Width 18.2 Platelet Count 303 Mean Platelet Volume 7.7 Neutrophils (%) (Auto) 70.6 Lymphocytes (%) (Auto) 15.2 Monocytes (%) (Auto) 12.7 Eosinophils (%) (Auto) 1.0 Basophils (%) (Auto) 0.5 Neutrophils # (Auto) 6.7 Lymphocytes # (Auto) 1.4 Monocytes # (Auto) 1.2 Eosinophils # (Auto) 0.1 Basophils # (Auto) 0.0 CBC Comment DIFF FINAL Differential Comment Blood Urea Nitrogen 12 Creatinine 0.65 Random Glucose 89 Calcium Level 8.6 Sodium Level 140 Potassium Level 3.3 Chloride Level 102 Carbon Dioxide Level 30.7 Anion Gap 7 Estimat Glomerular Filtration Rate 146 Blood Gas Puncture Site LT RADIAL Blood Gas Patient Temperature 98.6 Blood Gas HCO3 31 Blood Gas Base Excess 6.1 Blood Gas Oxygen Saturation 90 Arterial Blood pH 7.41 Arterial Blood Partial Pressure CO2 49 Arterial Blood Partial Pressure O2 66 Arterial Blood Oxygen Content 19.6 Arterial Blood Carboxyhemoglobin 2.0 Arterial Blood Methemoglobin 0.6 Blood Gas Hemoglobin 15.5 Oxygen Delivery Device VENTI MASK Blood Gas Liter Flow 6 Blood Gas Inspired Oxygen 50 Result Diagram: 05/14/17 0543 05/14/17 0543 Imaging Chest x-ray shows bilateral pulmonary vascular congestion and atelectasis Septic Shock Reassessment Septic shock perfusion: reassessment completed Assessment and Plan Assessment and Plan ASSESSMENT: Acute hypoxemic respiratory failure Acute systolic heart failure exacerbation COPD Small bowel obstruction Hypokalemia Cardiomyopathy EF 20-25% COPD on home oxygen Bilateral DVT Chronic atrial fibrillation PLAN: NEURO: -Minimize sedation -Avoid opiates due to ileus RESP: -Currently on 100% nonrebreather, titrate FiO2 to keep saturation above 90% -If any clinical deterioration needs endotracheal intubation. Not a candidate for BiPAP due to ileus -DuoNeb every 4 hours scheduled and as needed -Hold p.o. prednisone, start IV Solu-Medrol 60 every 8 hours -Empiric Azactam for COPD exacerbation CV: -Hold p.o. Lasix, IV Lasix 40 mg 1 and 40 every 12 -Start Aldactone 25 mg p.o. twice daily -Chest x-ray shows worsening interstitial edema -Currently on Coreg and Cardizem and lisinopril for CHF and A. fib -Continue IV heparin GI: -Dr. Murray following for small bowel obstruction -Keep NPO. NGT intermittent wall suction -Dr. Murray to review small bowel series, but does not believe he has any mechanical obstruction -Start IV Reglan 5 mg every 8 hours : -Monitor renal function closely. Place Faulkner catheter. IV Lasix as above -Start Aldactone 25 mg p.o. twice daily ID: -Send sputum culture, urine culture -Empiric Azactam HEME: -Monitor CBC, CMP, coags ENDO: -Electrolyte replacement per ICU protocol PROPH: -Bilateral lower extremity SCDs. IV heparin. IV famotidine LINES: -Utilize peripheral IVs, central line if needed CC time 45 min Code Status Full Discussed Condition With D/W patient and bedside RN D/W Ирина Walker MD May 14, 2017 17:25
[2017-05-14] MEDS ORDERED: POTASSIUM PHOSPHATE INJ 30 MMOL in SODIUM CHLOR 0.9% 250 ML INJ 250 ML IV PRN (17:45)
[2017-05-14] MEDS ORDERED: MAGNESIUM SULFATE INJ 4 GM in SODIUM CHLORIDE 0.9% INJ 92 ML IV PRN (17:45)
[2017-05-14] MEDS ORDERED: POTASSIUM CHLORIDE 25 MEQ EFFERVESCENT TAB PO PRN (17:45)
[2017-05-14] MEDS ORDERED: POTASSIUM CHLOR 40 MEQ PREMIX 100 ML IV-CENTRAL PRN ×2 (17:45)
[2017-05-14] MEDS ORDERED: POTASSIUM PHOSPHATE MONOBASIC 500 MG TAB PO/TUBE PRN (17:45)
[2017-05-14] MEDS ORDERED: MAGNESIUM OXIDE 400 MG TAB PO PRN (17:45)
[2017-05-14] MEDS ORDERED: POTASSIUM CHLOR 20 MEQ PREMIX 100 ML IV PRN ×2 (17:45)
[2017-05-14] MEDS ORDERED: SODIUM PHOSPHATE INJ 30 MMOL in SODIUM CHLOR 0.9% 250 ML INJ 240 ML IV PRN (17:45)
[2017-05-14] MEDS ORDERED: POTASSIUM PHOSPHATE MONOBASIC 500 MG TAB PO PRN (17:45)
[2017-05-14] MEDS ORDERED: MAGNESIUM SULFATE INJ 2 GM in SODIUM CHLORIDE 0.9% INJ 96 ML IV PRN (17:45)
[2017-05-14 17:54] LABS: MAGNESIUM 1.7 MG/DL (1.5-2.5); PHOSPHORUS 4.3 MG/DL (2.5-4.9)
[2017-05-14] MEDS: DILTIAZEM HCL 30 MG TAB PO SCH ×2 (18:00→21:02)
[2017-05-14] MEDS ORDERED: FUROSEMIDE 40 MG TAB PO SCH (18:00)
[2017-05-14] MEDS ORDERED: ETOMIDATE 20 MG/10 ML VIAL IV PUSH ONE (18:45)
[2017-05-14] MEDS ORDERED: ROCURONIUM INJ 50 MG/5 ML VIAL IV ONE (18:45)
[2017-05-14] MEDS ORDERED: FUROSEMIDE 40 MG/4 ML VIAL IV PUSH ONE (19:00)
[2017-05-14] MEDS ORDERED: MIDAZOLAM HCL 5 MG/ML VIAL (1 ML) IV PUSH ONE (19:00)
[2017-05-14] MEDS: RESP: ALBUTEROL 2.5 MG/IPRATROPIUM 0.5 MG NEB (SCH) NEB ×2 (19:48→23:36)
[2017-05-14] MEDS ORDERED: POTASSIUM CHLORIDE INJ 30 MEQ in SODIUM CHLORIDE 0.9% INJ 100 ML IV-CENTRAL ONE (20:00)
[2017-05-14] MEDS: METOCLOPRAMIDE HCL 10 MG/2 ML VIAL IV PUSH SCH ×2 (20:53→22:00)
[2017-05-14] MEDS: CARVEDILOL 6.25 MG TAB PO SCH (21:02)
[2017-05-14] MEDS: SPIRONOLACTONE 25 MG TAB PO SCH (21:02)
[2017-05-14] MEDS: DOCUSATE SODIUM 100 MG CAP PO SCH (21:02)
[2017-05-14] MEDS: methylPREDNISolone SOD SUCC 125 MG/2 ML VIAL IV PUSH SCH (21:03)
[2017-05-14] MEDS: AZTREONAM INJ 1,000 MG in SODIUM CHLORIDE 0.9% INJ 100 ML IV SCH (21:03)
[2017-05-14] MEDS: POTASSIUM CHLORIDE 25 MEQ EFFERVESCENT TAB PO SCH (21:04)
[2017-05-14] MEDS: ONDANSETRON HCL 4 MG/2 ML VIAL IV PUSH PRN (22:31)
[2017-05-14] MEDS: FUROSEMIDE 40 MG/4 ML VIAL IV PUSH SCH (22:47)
[2017-05-15] VITALS (17 sets, daily range): BP systolic 128–166; BP diastolic 77–93; PULSE 82–102; RESP 22–36; TEMP 98.2–98.8; O2SAT 82–100
[2017-05-15] MEDS: methylPREDNISolone SOD SUCC 125 MG/2 ML VIAL IV PUSH SCH ×5 (00:18→23:00)
--- NOTE | 2017-05-15 00:26 | RADRPT ---
EXAM DATE/TIME: 05/14/2017 11:20 [facility] COMPARISON: CT ABDOMEN & PELVIS W CONTRAST, May 13, 2017, 11:36. INDICATIONS : Evaluate small bowel obstruction. FLUORO TIME: 0 minutes IMAGE COUNT: 17 CONTRAST: MD He IMAGING TIME(S): 15 min, 30 min, 45 min, 1 hr, 1.5 hrs, 2.5 hrs3 hr, 4hr, 6.5hr, 12.5hr MEDICAL HISTORY : Hypertension. Chronic obstructive pulmonary disease. Cardiovascular disease SURGICAL HISTORY : None. ENCOUNTER: Subsequent ACUITY: 2 days PAIN SCORE: 4/10 LOCATION: Right lower quadrant FINDINGS: Diffuse small bowel dilatation on the pulmonary film. There is an NGT in the stomach. The stomach is grossly unremarkable. Significantly delayed passage of contrast with failure to reach the cecum at 12.5 hours. Although a d efinitive transition point is not identified as it was with CT exam, the contrast appears to extend t o the distal jejunum/proximal ileum. Visualized portions of small bowel are unremarkable. CONCLUSION: 1. Findings consistent with CT examination and suggestive of high grade obstruction in the distal jej unum/proximal ileum. Kwaku Vences MD on May 15, 2017 at 0:20 Board Certified Radiologist. This report was verified electronically.
[2017-05-15] MEDS: RESP: ALBUTEROL 2.5 MG/IPRATROPIUM 0.5 MG NEB (SCH) NEB ×6 (03:35→23:33)
[2017-05-15 03:49] LABS: HEMATOCRIT 50.6 % (39.0-51.0); HEMOGLOBIN 16.8 GM/DL (13.0-17.0); MEAN CORPUSCULAR HEMOGLOBIN 29.6 PG (27.0-34.0); MEAN CORPUSCULAR HGB CONC 33.2 % (32.0-36.0); MEAN PLATELET VOLUME 7.7 FL (7.0-11.0); PLATELET COUNT 307 TH/MM3 (150-450); RED BLOOD COUNT 5.68 MIL/MM3 (4.50-5.90); RED CELL DISTRIBUTION WIDTH 18.1 % (11.6-17.2); WHITE BLOOD COUNT 6.7 TH/MM3 (4.0-11.0)
[2017-05-15] MEDS: AZTREONAM INJ 1,000 MG in SODIUM CHLORIDE 0.9% INJ 100 ML IV SCH ×3 (04:00→20:01)
[2017-05-15] MEDS: METOCLOPRAMIDE HCL 10 MG/2 ML VIAL IV PUSH SCH ×3 (05:14→22:59)
[2017-05-15 06:35] LABS: BICARBONATE 32.2 MEQ/L (21.0-32.0); CREATININE 0.75 MG/DL (0.60-1.30); MAGNESIUM 1.9 MG/DL (1.5-2.5)
[2017-05-15] MEDS: POTASSIUM CHLORIDE 25 MEQ EFFERVESCENT TAB PO SCH ×2 (08:19→20:02)
[2017-05-15] MEDS: LISINOPRIL 5 MG TAB PO SCH (08:20)
[2017-05-15] MEDS: CARVEDILOL 6.25 MG TAB PO SCH ×2 (08:20→20:01)
[2017-05-15] MEDS: DILTIAZEM HCL 30 MG TAB PO SCH ×4 (08:20→20:01)
[2017-05-15] MEDS: SPIRONOLACTONE 25 MG TAB PO SCH ×2 (08:20→18:00)
[2017-05-15] MEDS: DOCUSATE SODIUM 100 MG CAP PO SCH ×2 (08:21→20:02)
[2017-05-15] MEDS: SODIUM CHLORIDE 0.9% FLUSH 10 ML FLUSH IV FLUSH SCH ×2 (08:22→20:01)
[2017-05-15] MEDS: FUROSEMIDE 40 MG/4 ML VIAL IV PUSH SCH ×2 (08:22→18:00)
[2017-05-15] MEDS: COLLAGENASE OINT 30 GM TUBE TOPICAL SCH (08:24)
[2017-05-15] MEDS: POTASSIUM CHLORIDE 20 MEQ CONTROLLED RELEASE TAB PO SCH (08:24)
[2017-05-15] MEDS: HEPARIN-D5W 25,000 U/250 ML 250 ML IV PRN (08:28)
--- NOTE | 2017-05-15 09:15 | RADRPT ---
EXAM DATE/TIME: 05/15/2017 08:51 [facility] COMPARISON: CT ABDOMEN & PELVIS W CONTRAST, May 13, 2017, 11:36. SMALL BOWEL SERIES W/GASTROGRAFIN, 2017, 11:20. INDICATIONS : Distention. MEDICAL HISTORY : Hypertension. Chronic obstructive pulmonary disease. Cardiovascular disease. SURGICAL HISTORY : None. ENCOUNTER: Initial ACUITY: 2 days PAIN SCORE: 3/10 LOCATION: middle abdomen FINDINGS: Nasogastric tube remains in place. Faint contrast is present throughout small bowel with loops dilate d throughout. No definite contrast appreciated in the colon. CONCLUSION: Persistent fluid dilatation of small bowel throughout. Kush Amato MD on May 15, 2017 at 9:12 Board Certified Radiologist. This report was verified electronically.
--- NOTE | 2017-05-15 09:18 | RADRPT ---
EXAM DATE/TIME: 05/15/2017 08:58 [facility] COMPARISON: CHEST SINGLE AP, May 14, 2017, 15:46. INDICATIONS : Respiratory disease. MEDICAL HISTORY : Hypertension. Chronic obstructive pulmonary disease. Cardiovascular disease. SURGICAL HISTORY : None. ENCOUNTER: Subsequent ACUITY: 3 days PAIN SCORE: 0/10 LOCATION: Bilateral chest FINDINGS: A single view of the chest demonstrates the lungs to be symmetrically aerated without evidence of mas s, infiltrate or effusion. NG tube in good position The cardiomediastinal contours are unremarkable. Osseous structures are intact. CONCLUSION: Normal examination. NG tube in good position. Amari Thomas MD on May 15, 2017 at 9:16 Board Certified Radiologist. This report was verified electronically.
--- NOTE | 2017-05-15 09:40 | HHI.CCPN ---
Subjective Remarks/Hospital Course Patient is a 72-year-old -[place] male with past medical history significant for COPD on home oxygen, chronic systolic heart failure EF 20-25%, chronic atrial fibrillation, bilateral lower extremity DVT on Coumadin, who was admitted to the hospitalist service on 05/13/2017 with history of nausea, vomiting with no diarrhea, not passing gas or stools for last 2 days. ER workup which included a CT of the abdomen pelvis showed small bowel obstruction which was high-grade. General surgery was consulted and patient was admitted to the floor. He was kept n.p.o. and NGT was placed. He was placed on a heparin drip for subtherapeutic INR. Today Halicat was called as patient became acutely hypoxemic. His O2 saturation went down to low 70s and was placed on 100% nonrebreather. Stat chest x-ray showed increasing interstitial edema and pulmonary vascular congestion indicating a CHF exacerbation. I evaluated the patient in the ICU. He is in a moderate respiratory distress currently on 100% nonrebreather. Physical exam revealed elevated JVD and bibasilar crackles. It appears that patient has acute systolic heart failure exacerbation. I will give IV Lasix 40 mg 1 now and scheduled 40 every 12. If his condition does not improve with the above measures patient may need endotracheal intubation, he is not a candidate for BiPAP due to significant small bowel obstruction and risk of aspiration. SB series is pending at this time, and Dr. Murray thinks it is ileus. Start IV Reglan, keep K>4 SUBJ 05/15/17: Remains on partial nonrebreather desaturates when placed on Ventimask 50%. He claims that he is breathing more comfortably. With IV Lasix made 1 L urine overnight. Started on Reglan yesterday ileus persist. Increase Reglan to 10 mg every 8. Small bowel series showing high grade obstruction Objective Vital Signs Date Time Temp Pulse Resp B/P (MAP) Pulse Ox O2 Delivery O2 Flow Rate FiO2 05/15/17 08:42 96 Partial Rebreather 15.00 05/15/17 06:00 92 05/15/17 04:00 98.2 23 160/87 (111) 05/14/17 23:39 50 Intake and Output 05/15/17 05/15/17 05/16/17 08:00 16:00 00:00 Intake Total 275 ml Output Total 1650 ml Balance -1375 ml Result Diagram: 05/15/17 0314 05/15/17 0552 Other Results Laboratory Tests Test 05/14/17 16:30 Blood Gas Puncture Site LT RADIAL Blood Gas Patient Temperature 98.6 Blood Gas HCO3 31 mmol/L (22-26) Blood Gas Base Excess 6.1 mmol/L (-2-2) Blood Gas Oxygen Saturation 90 % (90-100) Arterial Blood pH 7.41 (7.380-7.420) Arterial Blood Partial Pressure CO2 49 mmHg (38-42) Arterial Blood Partial Pressure O2 66 mmHg (61-120) Arterial Blood Oxygen Content 19.6 Vol % (12.0-20.0) Arterial Blood Carboxyhemoglobin 2.0 % (0-4) Arterial Blood Methemoglobin 0.6 % (0-2) Blood Gas Hemoglobin 15.5 G/DL (12.0-16.0) Oxygen Delivery Device VENTI MASK Blood Gas Liter Flow 6 L/M Blood Gas Inspired Oxygen 50 % Imaging Chest x-ray shows bilateral pulmonary vascular congestion and atelectasis Objective Remarks GENERAL: Ill-appearing male in mild respiratory distress currently on pNRB SKIN: warm/dry. HEAD: Atraumatic. Normocephalic. EYES: No scleral icterus. No injection or drainage. ENT: No nasal bleeding or discharge. Mucous membranes dry NECK: Trachea midline. Supple. JVD+ CARDIOVASCULAR: S1-S2 heard normally no S3. No murmurs dictated heart sounds are distant RESPIRATORY: Some accessory muscle use. Breath sounds equal bilaterally with few fine basilar crackles GASTROINTESTINAL: Abdomen soft, distended. Mild TTP. Bedside ultrasound does not show any significant ascites but dilated bowel loops MUSCULOSKELETAL: Trace bilateral pretibial edema. Bilateral chronic venous stasis changes NEUROLOGICAL: Awake and alert. Motor grossly within normal limits. Normal speech. A/P Assessment and Plan ASSESSMENT: Acute hypoxemic respiratory failure Acute systolic heart failure exacerbation COPD Small bowel obstruction Hypokalemia Cardiomyopathy EF 20-25% COPD on home oxygen Bilateral DVT Chronic atrial fibrillation PLAN: NEURO: -Avoid opiates due to ileus RESP: -Currently on 100% nonrebreather, titrate FiO2 to keep saturation above 90% -If any clinical deterioration needs endotracheal intubation. Not a candidate for BiPAP due to ileus -DuoNeb every 4 hours scheduled and as needed -Hold p.o. prednisone, start IV Solu-Medrol 60 every 8 hours -Empiric Azactam for COPD exacerbation CV: -Hold p.o. Lasix, IV Lasix 40 mg 1 and 40 every 12 -Start Aldactone 25 mg p.o. twice daily -Chest x-ray shows worsening interstitial edema -Currently on Coreg and Cardizem and lisinopril for CHF and A. fib -Continue IV heparin GI: -Dr. Murray following for small bowel obstruction -Keep NPO. NGT intermittent wall suction -Small bowel series showing high grade obstruction, review with KUB today -Discussed with Dr. Murray. He recommends f/u KUB in afternoon -Increase IV Reglan to 10 mg every 8 hours : -Monitor renal function closely. Faulkner catheter. IV Lasix as above -Aldactone 25 mg p.o. twice daily ID: -Send sputum culture, urine culture -Empiric Azactam HEME: -Monitor CBC, CMP, coags ENDO: -Electrolyte replacement per ICU protocol PROPH: -Bilateral lower extremity SCDs. IV heparin. IV famotidine LINES: -Utilize peripheral IVs, central line if needed [id number] MIN Ирина Currie MD May 15, 2017 09:40
--- NOTE | 2017-05-15 14:07 | RADRPT ---
EXAM DATE/TIME: 05/15/2017 13:33 [facility] COMPARISON: ABDOMEN KUB ONLY, May 15, 2017, 8:51. INDICATIONS : Evaluate small bowel obstruction. MEDICAL HISTORY : Hypertension. Chronic obstructive pulmonary disease. Cardiovascular disease SURGICAL HISTORY : None. ENCOUNTER: Subsequent ACUITY: 4 - 6 days PAIN SCORE: 4/10 LOCATION: Right lower quadrant FINDINGS: Supine view of the abdomen was performed. There are some distended loops of small bowel throughout t he abdomen similar to the previous study. NG tube within the stomach.. No abnormal masses, calcifica tions, or organomegaly is seen. The osseous structures are unremarkable. CONCLUSION: Distended loops of small bowel throughout the abdomen. NG tube within the stomach. Amari Thomas MD on May 15, 2017 at 14:05 Board Certified Radiologist. This report was verified electronically.
--- NOTE | 2017-05-15 16:25 | HHI.PR ---
cc: Raleigh Murray MD Subjective Subjective Notes DAILY PROGRESS NOTE FOR SURGICAL ATTENDING, DR. RALEIGH MURRAY I really needs something to drink I need some milk of magnesia or Maalox to help my bowels move If you think I need surgery I would agree to it Objective Vitals/I&O Vital Signs Date Time Temp Pulse Resp B/P (MAP) Pulse Ox O2 Delivery O2 Flow Rate FiO2 05/15/17 14:00 83 05/15/17 12:00 98.8 26 166/85 (112) 98 05/15/17 11:00 Venturi Mask 6.00 50 Labs Laboratory Tests Test 05/14/17 16:30 05/14/17 20:49 05/15/17 03:14 05/15/17 05:52 Blood Gas Puncture Site LT RADIAL Blood Gas Patient Temperature 98.6 Blood Gas HCO3 31 Blood Gas Base Excess 6.1 Blood Gas Oxygen Saturation 90 Arterial Blood pH 7.41 Arterial Blood Partial Pressure CO2 49 Arterial Blood Partial Pressure O2 66 Arterial Blood Oxygen Content 19.6 Arterial Blood Carboxyhemoglobin 2.0 Arterial Blood Methemoglobin 0.6 Blood Gas Hemoglobin 15.5 Oxygen Delivery Device VENTI MASK Blood Gas Liter Flow 6 Blood Gas Inspired Oxygen 50 Activated Partial Thromboplast Time 54.1 76.6 White Blood Count 6.7 Red Blood Count 5.68 Hemoglobin 16.8 Hematocrit 50.6 Mean Corpuscular Volume 89.0 Mean Corpuscular Hemoglobin 29.6 Mean Corpuscular Hemoglobin Concent 33.2 Red Cell Distribution Width 18.1 Platelet Count 307 Mean Platelet Volume 7.7 Blood Urea Nitrogen 15 Creatinine 0.75 Random Glucose 148 Calcium Level 9.0 Magnesium Level 1.9 Sodium Level 142 Potassium Level 3.4 Chloride Level 99 Carbon Dioxide Level 32.2 Anion Gap 11 Estimat Glomerular Filtration Rate 124 Test 05/15/17 10:59 Activated Partial Thromboplast Time 201.0 Radiology Last Impressions Abdomen X-Ray 05/15/17 1400 Signed Impressions: Service Date/Time: May 13:33 - CONCLUSION: Distended loops of small bowel throughout the abdomen. NG tube within the stomach. Amari Thomas MD Chest X-Ray 05/15/17 0000 Signed Impressions: Service Date/Time: May 08:58 - CONCLUSION: Normal examination. NG tube in good position. Amari Thomas MD Small Bowel X-Ray 05/14/17 0000 Signed Impressions: Service Date/Time: Sunday, May 14, 2017 11:20 - CONCLUSION: 1. Findings consistent with CT examination and suggestive of high grade obstruction in the distal jejunum/proximal ileum. Kwaku Vences MD Abdomen/Pelvis CT 05/13/17 1005 Signed Impressions: Service Date/Time: Saturday, May 13, 2017 11:36 - CONCLUSION: 1. Mid to distal jejunal small bowel ileus with acute transition characteristic of high grade small bowel obstruction. 2. Uncomplicated colonic diverticulosis. 3. Mild ascites. 4. Uncomplicated colonic diverticulosis. Conor John MD Cardiovascular: Regular Lungs: Upper airway course sound Abdomen: Non-distended, Non-tender Extremities: Perfused Narrative Exam Not much recorded from NG tube A/P Problem List: (1) Ileus ICD Codes: K56.7 - Ileus, unspecified Status: Acute (2) History of CHF (congestive heart failure) ICD Codes: Z86.79 - Personal history of other diseases of the circulatory system Status: Acute (3) DVT (deep venous thrombosis) ICD Codes: I82.409 - Acute embolism and thrombosis of unspecified deep veins of unspecified lower extremity Status: Acute (4) Atrial fibrillation ICD Codes: I48.91 - Unspecified atrial fibrillation Status: Chronic (5) History of DVT (deep vein thrombosis) ICD Codes: Z86.718 - Personal history of other venous thrombosis and embolism Status: Acute (6) termination clerk (current) use of anticoagulants ICD Codes: Z79.01 - termination clerk (current) use of anticoagulants Status: Acute Assessment and Plan 72 old gentleman who was admitted to the hospital for small bowel obstruction nausea vomiting urinary tract infection he is presently on a heparin drip He's not having much out of his NG tube advance to clear liquids because he says he is very thirsty Upper GI continues to show slow progression of the contrast throughout the small bowel. Clinically he does not appear to have a small bowel obstruction I will start some by mouth Suppository Medical management Discussed with Dr. Currie critical-care Discussed with palliative team today Attending Statement NOTE FOR SURGICAL ATTENDING, DR. RALEIGH MURRAY I attest that I had a [id number] encounter with the patient on the same day, and personally performed and documented my assessment and findings in the medical record. The following services were provided during this hospital visit: Chart data review, vital sign assessments/reviewing monitor data Review of consultations notes if present. Medication orders/review and/or management Ordering and/or reviewing lab tests Ordering and/or interpreting/reviewing x-rays and/or diagnostic studies Care of the patient and discussion of the patient with the care team Documentation time To help prompt me to consider important information that might be impacting today's encounter and assessment, information from prior notes written by myself or my colleagues may have been "brought forward/copy and pasted" into today's note. Raleigh Murray MD May 15, 2017 16:25
--- NOTE | 2017-05-15 16:59 | PD.CONS ---
Consult Service Palliative Care Consult Requested By Dr. Currie. Primary Care Physician [facility]. Reason for Consultation a. To assist with evaluation and management of symptoms including: Abdominal pain, shortness of breath, debility. b. To assist medical decision maker(s) with: better understanding of current medical conditions; weighing benefits/burdens of medical treatment options; making medical treatment decisions. . HPI History of Present Illness Mr. Rocha is a 72-year-old male with a medical history significant for COPD, CHF, hypertension, hyperlipidemia, poor medication compliance. Patient presented to emergency room on 05/13/17 endorsing persistent nausea, vomiting and generalized abdominal pain for the past 4 days. Abdomen/pelvis CT revealing small bowel ileus with acute transition characteristics of high grade small bowel obstruction. Chest x-ray revealing chronic interstitial lung disease, left basilar atelectasis/infiltrate. NG tube was placed, 2 L of gastric contents were removed. Laboratory workup revealed a WBC 6.1, Hgb 15.3, platelet count 325. Sodium 139, potassium 3.9, BUN/creatinine 13/0.93. UA negative for nitrate, small leukocyte. Patient was admitted for further management. General surgery, Dr. Murray consulted. Close monitoring recommended while pneumonia and pulmonary/cardiac issues are treated and maximize. Patient was placed on Reglan. Clinical course complicated by hypoxemia on 05/14/17, Halicat was called and patient was placed on 100% nonrebreather. Chest x-ray indicated interstitial edema and pulmonary vascular congestion suggesting CHF exacerbation. Patient was transferred to surgical ICU for further monitoring. Follow-up abdominal x-ray this afternoon revealing distended loops of small bowel throughout the abdomen. Palliative care has been consulted for further clarification so goals of care, patient with history of medication noncompliance and treatment refusal. Reviewed the patient's past medical history. Patient known to palliative care services from prior hospitalization from 04/03/17 to 04/22/17 secondary to CHF exacerbation. Echocardiogram 04/04/17 revealing EF fraction of 15%, mild left ventricular hypertrophy, mild mitral valve regurgitation, [id number] aortic regurgitation. Cardiology, Dr. Ren consulted 04/05/17 for evaluation. Patient reported history of chronic atrial fibrillation, medication noncompliant. Patient was found with acute on chronic systolic congestive heart failure and known severe cardiomyopathy and atrial fibrillation. Myocardial perfusion scan 04/05/17 revealing no appreciable ischemia. Podiatry, Dr. De Jesus consulted on 04/05/17 for evaluation of lower extremity wounds. Tibia/fibula x-ray 04/05/17 revealing soft tissue swelling without fracture or periosteal reaction. Lower extremity MRI negative for abscess or osteomyelitis. Bilateral lower extremity ultrasound revealing DVTs, patient was placed on warfarin, Clinical course complicated by respiratory failure, increased oxygenation needs. Patient was placed on nonrebreather mask at 15 L, transferred to MICU for further management and monitoring. Patient continued with increased oxygen requirement, very difficult to wean off oxygen. Patient was seen by psychiatry, Dr. Bobby on 04/07/17. Patient was deemed capacitated for medical decision-making. PT was following, recommended PT at rehab. However, patient declined rehabilitation. Patient was discharged home on 04/22/17. Patient seen in surgical ICU. He was resting in bed in no acute distress. Reporting mild abdominal discomfort, no dyspnea. Endorsing feeling hungry, asking for something to drink. Reviewed events leading to this hospitalization , clinical course and current medical management. Patient remembers palliative care provider from prior visit. Receptive to goals of care conversation. Patient with a fair understanding of his clinical condition. Patient verbalized that he is main goal is to return home for independent living. He said that he is not going to any longterm. Reviewed risks, benefits and limitations of CPR, intubation and mechanical ventilation. Patient considering limitations to treatment, however, at this time he wishes for full code. Assisted patient with completion of advance directives. Patient electing his cousin Kathie Saavedra as healthcare surrogate decision maker. He further reports that in the event that he requires life support, breathing tube/event he only once a day for 2 days, and if no recovery "okay to let me go". Patient wishing to maximize medical management for acute small bowel obstruction at this time. Hospice philosophy and benefits reintroduce given extensive cardiopulmonary disease. Patient receptive to continuation of goals of care conversation. Case discussed with Dr. Murray, Dr. Currie and bedside RN. . Function/Cognitive Trajectory Patient residing independently prior to this hospitalization. Apparently independent with ADLs. . Review of Systems Constitutional: COMPLAINS OF: Pain, DENIES: Fever, Change in appetite Endocrine: DENIES: Heat/cold intolerance Eyes: DENIES: Eye pain Ears, nose, mouth, throat: DENIES: Nasal discharge, Oral lesions, Running Nose , Epistaxis Respiratory: COMPLAINS OF: Shortness of breath, DENIES: Cough Cardiovascular: COMPLAINS OF: Dyspnea on Exertion, Lower Extremity Edema Gastrointestinal: COMPLAINS OF: Constipation, Nausea, Vomiting, DENIES: Difficulty Swallowing Genitourinary: DENIES: Urinary incontinence, Hematuria Musculoskeletal: DENIES: Stiffness Integumentary: COMPLAINS OF: Non-healing sores, DENIES: Abnormal pigmentation Hematologic/Lymphatics: COMPLAINS OF: Bruising Immunologic/Allergic: DENIES: Eczema Neurologic: DENIES: Localized weakness, Seizures, Tremor Psychiatric: COMPLAINS OF: Anxiety, DENIES: Mood changes, Hallucinations, Agitation Past Family Social History Coded Allergies: Penicillins (Verified Allergy, Unknown, 04/03/17) Past Medical History COPD, O2 dependent Congestive heart failure, EF 20% Atrial fibrillation on Coumadin Hypertension Hyperlipidemia Diabetes mellitus Ulcers to bilateral lower extremities . Past Surgical History Hernia repair in in the 1970 bowel blockage? . Reported Medications Oxygen (O2) Device Liter ALEXANDRA.CANULA CONTINUOUS Santyl (Collagenase) 250 Unit/Gram Oin 1 Applic TOPICAL DAILY [Gentamicin 0.1% Cream] 15 APPLIC/15 GM Cr 1 Applic TOPICAL DAILY Prednisone 20 Mg Tab 20 Mg PO DAILY Dok (Docusate Sodium) 100 Mg Cap 100 Mg PO BID Furosemide 40 Mg Tab 40 Mg PO BID@,18 Potassium Chloride Microencaps 20 Meq Tab 20 Meq PO DAILY Aspirin DR (Aspirin) 81 Mg Tabdr 81 Mg PO DAILY Lisinopril 5 Mg Tab 2.5 Mg PO DAILY Cardizem (Diltiazem HCl) 30 Mg Tab 30 Mg PO QID Coreg (Carvedilol) 6.25 Mg Tab 6.25 Mg PO Q12HR Coumadin (Warfarin) 5 Mg Tab 5 Mg PO DAILY@1600 . Current Medications Medications (Trade) Dose Ordered Sig/Deacon Route Start Time Stop Time Status Last Admin (NS Flush) 2 ml UNSCH PRN IV FLUSH 05/13/17 13:15 (NS Flush) 2 ml BID IV FLUSH 05/13/17 21:00 05/15/17 08:22 (Narcan Inj) 0.4 mg UNSCH PRN IV PUSH 05/13/17 13:15 Heparin Sodium/ Dextrose 250 ml @ 15 mls/hr TITRATE PRN IV 05/13/17 14:00 05/15/17 08:28 (Zofran Inj) 4 mg Q6HR PRN IV PUSH 05/13/17 13:15 05/14/17 22:31 (Coreg) 6.25 mg Q12HR PO 05/14/17 21:00 05/15/17 08:20 (Santyl Oint) 1 applic DAILY TOPICAL 05/15/17 09:00 05/15/17 08:24 (Cardizem) 30 mg QID PO 05/14/17 18:00 05/15/17 13:18 (Colace) 100 mg BID PO 05/14/17 21:00 05/15/17 08:21 (Lasix) 40 mg BID@18 PO 05/14/17 18:00 Future Hold 05/14/17 18:00 (Prinivil) 2.5 mg DAILY PO 05/15/17 09:00 05/15/17 08:20 (KCl) 20 meq DAILY PO 05/15/17 09:00 05/15/17 08:24 (Deltasone) 20 mg DAILY PO 05/14/17 16:00 Future Hold 05/14/17 16:06 (Duoneb Neb) 1 ampule Q2HR NEB PRN NEB 05/14/17 15:45 (Pill Splitter) 1 ea UNSCH PRN OTHER 05/14/17 16:00 (Duoneb Neb) 1 ampule Q4HR NEB NEB 05/14/17 20:00 05/15/17 11:10 (Lasix Inj) 40 mg BID@18 IV PUSH 05/14/17 22:00 05/15/17 08:22 (K-Lyte Cl Eff) 25 meq Q12HR PO 05/14/17 21:00 05/15/17 08:19 Potassium Chloride 100 ml @ 50 mls/hr Q2H PRN IV-CENTRAL 05/14/17 17:45 Potassium Chloride 100 ml @ 50 mls/hr Q2H PRN IV 05/14/17 17:45 05/15/17 11:06 (K-Lyte Cl Eff) 50 meq UNSCH PRN PO 05/14/17 17:45 Potassium Chloride 100 ml @ 25 mls/hr UNSCH PRN IV-CENTRAL 05/14/17 17:45 Potassium Chloride 100 ml @ 50 mls/hr Q2H PRN IV 05/14/17 17:45 05/15/17 06:53 Magnesium Sulfate 4 gm/Sodium Chloride 100 ml @ 50 mls/hr UNSCH PRN IV 05/14/17 17:45 (Mag-Ox) 800 mg UNSCH PRN PO 05/14/17 17:45 Magnesium Sulfate 2 gm/Sodium Chloride 100 ml @ 50 mls/hr UNSCH PRN IV 05/14/17 17:45 (K-Phos) 2,000 mg Q4H PRN PO 05/14/17 17:45 Sodium Phosphate 30 mmol/Sodium Chloride 250 ml @ 42 mls/hr UNSCH PRN IV 05/14/17 17:45 (K-Phos) 2,000 mg UNSCH PRN PO/TUBE 05/14/17 17:45 Potassium Phosphate 30 mmol/ Sodium Chloride 260 ml @ 42 mls/hr UNSCH PRN IV 05/14/17 17:45 (SoluMEDROL INJ) 60 mg Q6HR IV PUSH 05/14/17 19:00 05/15/17 13:22 Aztreonam 1000 mg/ Sodium Chloride 100 ml @ 200 mls/hr Q8H IV 05/14/17 20:00 05/15/17 13:20 (Aldactone) 25 mg BID@09,18 PO 05/14/17 19:15 05/15/17 08:20 (Reglan Inj) 10 mg Q8HR IV PUSH 05/15/17 14:00 05/15/17 13:20 Family History Mother with history of diabetes and bone cancer. . Substance Use Tobacco: Former smoker. [id number] history, quitted 2011. Alcohol: Denies. Prescription med abuse: Denies. Illicits: Denies. . Psychosocial History Patient is single, never . No children. [employer] , disabled secondary to PTSD. Patient was born and raised in [place]. Highest level of education is high school. Patient has 2 siblings in the area, one cousin that lives in [place]. . Spiritual/Cultural Factors No nondenominational affiliation. . Health Care Surrogate: Copy in medical record Date completed: 05/15/2017. . Health Care Surrogate(s): cousin Kathie Saavedra listed as healthcare surrogate decision maker. Alternate surrogate is cousin Dee Taylor. . Documented care wishes: Patient verbalized that in the event of being placed on life support, he would only allow 2 days and if no recovery, okay to "let him go" . Today's verbally stated goals: Full code. Patient wishing to pursue aggressive management, goal is to discharge home. . Family/friends goals: cousin Kathie Burnett supportive of patient's wishes. . Ethical and Legal Issues No ethical issues identified. Physical Exam Vital Signs Date Time Temp Pulse Resp B/P (MAP) Pulse Ox O2 Delivery O2 Flow Rate FiO2 05/15/17 14:00 83 05/15/17 12:00 98.8 92 26 166/85 (112) 98 05/15/17 12:00 92 05/15/17 11:00 92 Venturi Mask 6.00 50 05/15/17 10:00 92 05/15/17 08:42 96 Partial Rebreather 15.00 05/15/17 08:00 98.5 102 25 149/93 (111) 97 05/15/17 08:00 102 05/15/17 07:00 96 Venturi Mask 5.00 05/15/17 06:00 92 05/15/17 04:00 98.2 82 23 160/87 (111) 97 05/15/17 04:00 82 05/15/17 02:00 94 05/15/17 00:00 97 Partial Non-Rebreather 10.00 05/15/17 00:00 98.5 90 22 128/77 (94) 90 05/15/17 00:00 90 05/14/17 23:39 93 Venturi Mask 6.00 50 05/14/17 22:00 104 05/14/17 20:00 105 05/14/17 20:00 98.8 105 16 161/94 (116) 98 05/14/17 19:48 94 Venturi Mask 6.00 50 05/14/17 19:00 96 Venturi Mask 5.00 05/14/17 18:00 98.3 86 29 165/99 (121) 100 05/14/17 16:38 96 05/14/17 16:37 98.4 99 22 136/86 (103) 77 05/14/17 16:27 92 Venturi Mask 6.00 50 Exam CONSTITUTIONAL/GENERAL: This is an adequately nourished patient, in no apparent distress. TUBES/LINES/DRAINS: Nasal cannula, NG tube, PIV. SKIN: No jaundice, rashes. Skin temperature appropriate. Not diaphoretic. Nonhealing sores to bilateral lower extremities. HEAD: Atraumatic. Normocephalic. EYES: Pupils equal and round and reactive. Extraocular motions intact. No scleral icterus. No injection or drainage. ENT: Hearing grossly normal. Nose without bleeding or purulent drainage. Dry lips. NECK: Trachea midline. Supple, nontender. CARDIOVASCULAR: Regular rate and rhythm. Peripheral pulses symmetric. Venous stasis to bilateral lower extremities. RESPIRATORY/CHEST: Symmetric, unlabored respirations. Coarse breath sounds bilaterally. GASTROINTESTINAL: Abdomen soft, non-tender, nondistended. No hepato-splenomegaly , or palpable masses. No guarding. Bowel sounds present. GENITOURINARY: Without palpable bladder distension. Faulkner catheter in place. MUSCULOSKELETAL: Extremities without clubbing, cyanosis, or edema. No joint tenderness or effusion noted. No calf tenderness. No mottling or clubbing. LYMPHATICS: No palpable cervical or supraclavicular adenopathy. NEUROLOGICAL: Awake and alert. Motor and sensory grossly within normal limits. Follows commands. Cognitively sharp. Moves all extremities. PSYCHIATRIC: calm, cooperative. . Diagnostic Tests Laboratory Laboratory Tests Test 05/13/17 10:00 05/13/17 12:40 05/13/17 21:36 05/14/17 05:43 White Blood Count 6.1 TH/MM3 (4.0-11.0) 9.5 TH/MM3 (4.0-11.0) Red Blood Count 5.22 MIL/MM3 (4.50-5.90) 4.64 MIL/MM3 (4.50-5.90) Hemoglobin 15.3 GM/DL (13.0-17.0) 13.7 GM/DL (13.0-17.0) Hematocrit 46.0 % (39.0-51.0) 40.7 % (39.0-51.0) Mean Corpuscular Volume 88.2 FL (80.0-100.0) 87.7 FL (80.0-100.0) Mean Corpuscular Hemoglobin 29.3 PG (27.0-34.0) 29.5 PG (27.0-34.0) Mean Corpuscular Hemoglobin Concent 33.2 % (32.0-36.0) 33.7 % (32.0-36.0) Red Cell Distribution Width 18.1 % (11.6-17.2) 18.2 % (11.6-17.2) Platelet Count 325 TH/MM3 (150-450) 303 TH/MM3 (150-450) Mean Platelet Volume 7.8 FL (7.0-11.0) 7.7 FL (7.0-11.0) Neutrophils (%) (Auto) 75.5 % (16.0-70.0) 70.6 % (16.0-70.0) Lymphocytes (%) (Auto) 15.3 % (9.0-44.0) 15.2 % (9.0-44.0) Monocytes (%) (Auto) 8.1 % (0.0-8.0) 12.7 % (0.0-8.0) Eosinophils (%) (Auto) 0.6 % (0.0-4.0) 1.0 % (0.0-4.0) Basophils (%) (Auto) 0.5 % (0.0-2.0) 0.5 % (0.0-2.0) Neutrophils # (Auto) 4.6 TH/MM3 (1.8-7.7) 6.7 TH/MM3 (1.8-7.7) Lymphocytes # (Auto) 0.9 TH/MM3 (1.0-4.8) 1.4 TH/MM3 (1.0-4.8) Monocytes # (Auto) 0.5 TH/MM3 (0-0.9) 1.2 TH/MM3 (0-0.9) Eosinophils # (Auto) 0.0 TH/MM3 (0-0.4) 0.1 TH/MM3 (0-0.4) Basophils # (Auto) 0.0 TH/MM3 (0-0.2) 0.0 TH/MM3 (0-0.2) CBC Comment DIFF FINAL DIFF FINAL Differential Comment Prothrombin Time 12.7 SEC (9.8-11.6) Prothromb Time International Ratio 1.3 RATIO Activated Partial Thromboplast Time 25.7 SEC (24.3-30.1) 26.0 SEC (24.3-30.1) 33.5 SEC (24.3-30.1) Blood Urea Nitrogen 13 MG/DL (7-18) 12 MG/DL (7-18) Creatinine 0.93 MG/DL (0.60-1.30) 0.65 MG/DL (0.60-1.30) Random Glucose 93 MG/DL (74-106) 89 MG/DL (74-106) Total Protein 8.0 GM/DL (6.4-8.2) Albumin 3.0 GM/DL (3.4-5.0) Calcium Level 9.4 MG/DL (8.5-10.1) 8.6 MG/DL (8.5-10.1) Alkaline Phosphatase 74 U/L (45-117) Aspartate Amino Transf (AST/SGOT) 22 U/L (15-37) Alanine Aminotransferase (ALT/SGPT) 21 U/L (12-78) Total Bilirubin 1.0 MG/DL (0.2-1.0) Sodium Level 139 MEQ/L (136-145) 140 MEQ/L (136-145) Potassium Level 3.9 MEQ/L (3.5-5.1) 3.3 MEQ/L (3.5-5.1) Chloride Level 101 MEQ/L (98-107) 102 MEQ/L (98-107) Carbon Dioxide Level 29.8 MEQ/L (21.0-32.0) 30.7 MEQ/L (21.0-32.0) Anion Gap 8 MEQ/L (5-15) 7 MEQ/L (5-15) Estimat Glomerular Filtration Rate 97 ML/MIN (>89) 146 ML/MIN (>89) Lactic Acid Level 1.5 mmol/L (0.4-2.0) Total Creatine Kinase 84 U/L (39-308) Troponin I LESS THAN 0.02 NG/ML B-Type Natriuretic Peptide 1649 PG/ML (0-100) Lipase 30 U/L (73-393) Urine Color YELLOW (YELLW/STRAW) Urine Turbidity CLEAR (CLEAR) Urine pH 6.5 (5.0-8.5) Urine Specific Barney 1.014 (1.002-1.035) Urine Protein NEG mg/dL (NEG-TRACE) Urine Glucose (UA) NEG mg/dL (NEG) Urine Ketones TRACE mg/dL (NEG) Urine Occult Blood NEG (NEG) Urine Nitrite NEG (NEG) Urine Bilirubin NEG (NEG) Urine Urobilinogen LESS THAN 2.0 MG/DL (LESS Urine Leukocyte Esterase SMALL (NEG) Urine RBC 4 /hpf (0-3) Urine WBC 3 /hpf (0-5) Urine Squamous Epithelial Cells 2 /hpf (0-5) Urine Mucus FEW /lpf (OCC) Microscopic Urinalysis Comment CULT NOT INDICATED Phosphorus Level 4.3 MG/DL (2.5-4.9) Magnesium Level 1.7 MG/DL (1.5-2.5) Test 05/14/17 15:14 05/14/17 16:30 05/14/17 20:49 05/15/17 03:14 Activated Partial Thromboplast Time 73.9 SEC (24.3-30.1) 54.1 SEC (24.3-30.1) 76.6 SEC (24.3-30.1) Blood Gas Puncture Site LT RADIAL Blood Gas Patient Temperature 98.6 Blood Gas HCO3 31 mmol/L (22-26) Blood Gas Base Excess 6.1 mmol/L (-2-2) Blood Gas Oxygen Saturation 90 % (90-100) Arterial Blood pH 7.41 (7.380-7.420) Arterial Blood Partial Pressure CO2 49 mmHg (38-42) Arterial Blood Partial Pressure O2 66 mmHg (61-120) Arterial Blood Oxygen Content 19.6 Vol % (12.0-20.0) Arterial Blood Carboxyhemoglobin 2.0 % (0-4) Arterial Blood Methemoglobin 0.6 % (0-2) Blood Gas Hemoglobin 15.5 G/DL (12.0-16.0) Oxygen Delivery Device VENTI MASK Blood Gas Liter Flow 6 L/M Blood Gas Inspired Oxygen 50 % White Blood Count 6.7 TH/MM3 (4.0-11.0) Red Blood Count 5.68 MIL/MM3 (4.50-5.90) Hemoglobin 16.8 GM/DL (13.0-17.0) Hematocrit 50.6 % (39.0-51.0) Mean Corpuscular Volume 89.0 FL (80.0-100.0) Mean Corpuscular Hemoglobin 29.6 PG (27.0-34.0) Mean Corpuscular Hemoglobin Concent 33.2 % (32.0-36.0) Red Cell Distribution Width 18.1 % (11.6-17.2) Platelet Count 307 TH/MM3 (150-450) Mean Platelet Volume 7.7 FL (7.0-11.0) Test 05/15/17 05:52 05/15/17 10:59 Blood Urea Nitrogen 15 MG/DL (7-18) Creatinine 0.75 MG/DL (0.60-1.30) Random Glucose 148 MG/DL (74-106) Calcium Level 9.0 MG/DL (8.5-10.1) Magnesium Level 1.9 MG/DL (1.5-2.5) Sodium Level 142 MEQ/L (136-145) Potassium Level 3.4 MEQ/L (3.5-5.1) Chloride Level 99 MEQ/L (98-107) Carbon Dioxide Level 32.2 MEQ/L (21.0-32.0) Anion Gap 11 MEQ/L (5-15) Estimat Glomerular Filtration Rate 124 ML/MIN (>89) Activated Partial Thromboplast Time 201.0 SEC (24.3-30.1) Result Diagram: 05/15/17 0314 05/15/17 0552 Imaging Last Impressions Abdomen X-Ray 05/15/17 1400 Signed Impressions: Service Date/Time: May 13:33 - CONCLUSION: Distended loops of small bowel throughout the abdomen. NG tube within the stomach. Amari Thomas MD Chest X-Ray 05/15/17 0000 Signed Impressions: Service Date/Time: May 08:58 - CONCLUSION: Normal examination. NG tube in good position. Amari Thomas MD Small Bowel X-Ray 05/14/17 0000 Signed Impressions: Service Date/Time: Sunday, May 14, 2017 11:20 - CONCLUSION: 1. Findings consistent with CT examination and suggestive of high grade obstruction in the distal jejunum/proximal ileum. Kwaku Vences MD Abdomen/Pelvis CT 05/13/17 1005 Signed Impressions: Service Date/Time: Saturday, May 13, 2017 11:36 - CONCLUSION: 1. Mid to distal jejunal small bowel ileus with acute transition characteristic of high grade small bowel obstruction. 2. Uncomplicated colonic diverticulosis. 3. Mild ascites. 4. Uncomplicated colonic diverticulosis. Conor John MD Patient/Family Conference Present at Family Conference: Patient, cousin Kathie Cagle. Family Conference Time (mins): 47 Family Conference Location: Bedside, Telephone Issues Discussed: * Palliative care role, purpose, approach * Additional medical, psychosocial, and spiritual history * Patients general health, functional status, and cognitive changes in the months leading up to the current hospitalization * Patient/family understanding of the current medical problems * Patient/family understanding of prognosis * Patients goals of care as best understood from advance directives and/or conversations and/or values * Current medical treatment options and benefits/burdens of those options * Likely scenarios comparing ongoing aggressive care with a transition to comfort measures only * Questions answered to the best of my ability * Palliative care contact information provided * Risks, benefits and limitations of CPR, intubation and mechanical ventilation * Hospice philosophy and benefits . Assessment and Plan Disease Oriented Problem List: (1) Acute hypoxemic respiratory failure (2) Small bowel obstruction (3) COPD (chronic obstructive pulmonary disease) (4) Systolic heart failure (5) Cardiomyopathy (6) Leg ulcer, left Symptom Scale: (1) Abdominal pain 0-10 Scale: 0 (2) Dyspnea 0-10 Scale: Unable to quantify Pertinent Non-Medical Issues Psychosocial: Patient is single, never . No children. [employer] , disabled secondary to PTSD. Patient was born and raised in [place]. Highest level of education is high school. Patient has 2 siblings in the area, one cousin that lives in [place]. Spiritual: No nondenominational affiliation. Legal: Advance directives completed. Ethical issues impacting care: No ethical issues identified. . Important Contacts HCS/cousin Kathie Saavedra . Alternate surrogate/cousin Dee Taylor . . Prognosis Mr. Rocha is a 72-year-old male with a medical history significant for CHF, COPD, atrial fibrillation, medication noncompliance. Patient with significant progression of cardiopulmonary disease. He is O2 dependent, EF of 20%. Patient admitted for small bowel obstruction, somewhat improving. However, patient remains at high risk for further complications, continued decline and . Patient appears hospice appropriate should he elects comfort-directed care given significant cardiopulmonary disease. . Code Status: Full Code Plan * CODE STATUS: Full code. * HEALTHCARE DECISION-MAKING: Patient participated in medical decision making. He appears to have a fair understanding of his overall clinical condition. Retains the ability to weight benefits versus burdens of treatment options. Patient has designated is cousin Kathie Saavedra as healthcare surrogate decision maker, alternate is cousin Dee Taylor. * GOALS OF CARE: Patient electing to pursue aggressive management to include surgical intervention for small bowel obstruction if medically needed. Patient much more receptive to goals of care conversation during this visit, hospice philosophy and benefits have been previously introduced and revisited given severe cardiopulmonary disease. Patient appears receptive to home hospice services upon discharge. For now, he wishes to maximize medical management. Patient was assisted with completion of advance directives, he is requesting that in the event that he requires ventilator support, only to allow it for 2 days and if no recovery "okay to let me go". Patient receptive to palliative care follow-ups. * SYMPTOMS: = Abdominal pain, secondary to constipation, partial SBO. NG tube and terminated to wall suction. Currently on Reglan 10 mg every 8 hours. Milk of magnesia and Dulcolax suppository added by Dr. Murray today. = Shortness of breath: Secondary to COPD, CHF exacerbation. Currently on Venturi mask, 8 L 50% FiO2. = Debility: chronic. Rehabilitation was recommended during prior admission, patient declined. * Case discussed with Dr. Murray, Dr. Currie and bedside RN. * Palliative care contact information has been provided to patient and family. * Palliative care will continue to follow up for further clarification of goals of care as patient's clinical course continues to evolve. . Time Spent Total Floor Time (mins): 68 (Total time to include reviewing summarization of available medical records to include prior hospitalizations, physical exam, goals of care conversation with patient's, assistance with completion of advance directives, case discussion with surgeon, attending and bedside RN.) >50% Counseling/Coord of Care: Yes Thank you for the opportunity to participate in the care of Mr. Rocha. Attestation To help prompt me to consider important information that might be impacting today's encounter and assessment, information from prior notes written by myself or my colleagues may have been "brought forward" into today's note. My signature on this note, however, is an attestation that I personally performed the exam, history, and/or decision-making noted today, and, unless otherwise indicated, the interactions with patient, family, and staff as well as the review of records all occurred today. I also attest that the listed assessment and stated plan reflect my best clinical judgment today based on the combination of historical information, prior notes, and today's exam/ interactions. When time spent is documented, it refers only to time spent today by the signer, or if indicated, combined time spent today by collaborating physician/nurse practitioner. Areli Dunaway May 15, 2017 16:59
[2017-05-16] VITALS (12 sets, daily range): BP systolic 126–169; BP diastolic 77–86; PULSE 82–100; RESP 15–27; TEMP 97.1–98.4; O2SAT 90–96
[2017-05-16 00:38] LABS: AST (GOT) 14 U/L (15-37); BLOOD UREA NITROGEN 18 MG/DL (7-18); CALCIUM 9.5 MG/DL (8.5-10.1); CHLORIDE 97 MEQ/L (98-107); CREATININE 0.85 MG/DL (0.60-1.30); GLOMERULAR FILTRATION RATE 107 ML/MIN (>89); GLUCOSE,RANDOM 155 MG/DL (74-106); MAGNESIUM 1.9 MG/DL (1.5-2.5); SODIUM (NA) 141 MEQ/L (136-145)
[2017-05-16 00:39] LABS: ALT (GPT) 14 U/L (12-78)
[2017-05-16 00:41] LABS: ALKALINE PHOSPHATASE 67 U/L (45-117); TOTAL BILIRUBIN ADULT 0.8 MG/DL (0.2-1.0); TOTAL PROTEIN 8.1 GM/DL (6.4-8.2)
[2017-05-16] MEDS: RESP: ALBUTEROL 2.5 MG/IPRATROPIUM 0.5 MG NEB (SCH) NEB ×6 (03:31→23:57)
[2017-05-16] MEDS: AZTREONAM INJ 1,000 MG in SODIUM CHLORIDE 0.9% INJ 100 ML IV SCH (03:31)
[2017-05-16 05:15] LABS: AUTOMATED NEUTROPHIL # 11.9 TH/MM3 (1.8-7.7); BASOPHIL % 0.2 % (0.0-2.0); HEMATOCRIT 50.5 % (39.0-51.0); HEMOGLOBIN 16.8 GM/DL (13.0-17.0); LYMPH % 5.1 % (9.0-44.0); LYMPHOCYTE # 0.7 TH/MM3 (1.0-4.8); MEAN CELL VOLUME 88.9 FL (80.0-100.0); MEAN CORPUSCULAR HEMOGLOBIN 29.6 PG (27.0-34.0); MEAN CORPUSCULAR HGB CONC 33.3 % (32.0-36.0); MEAN PLATELET VOLUME 7.8 FL (7.0-11.0); MONO % 3.4 % (0.0-8.0); MONOCYTE # 0.4 TH/MM3 (0-0.9); NEUT % 91.3 % (16.0-70.0); PLATELET COUNT 310 TH/MM3 (150-450); RED BLOOD COUNT 5.68 MIL/MM3 (4.50-5.90); RED CELL DISTRIBUTION WIDTH 18.6 % (11.6-17.2); WHITE BLOOD COUNT 13.1 TH/MM3 (4.0-11.0)
[2017-05-16] MEDS: methylPREDNISolone SOD SUCC 125 MG/2 ML VIAL IV PUSH SCH ×3 (05:38→17:22)
[2017-05-16] MEDS: METOCLOPRAMIDE HCL 10 MG/2 ML VIAL IV PUSH SCH ×3 (05:38→21:40)
--- NOTE | 2017-05-16 06:37 | RADRPT ---
EXAM DATE/TIME: 05/16/2017 04:16 [facility] COMPARISON: ABDOMEN KUB ONLY, May 15, 2017, 13:33. INDICATIONS : Ileus. MEDICAL HISTORY : Hypertension. Chronic obstructive pulmonary disease. Cardiovascular disease. SURGICAL HISTORY : None. ENCOUNTER: Subsequent ACUITY: 4 - 6 days PAIN SCORE: 0/10 LOCATION: abdomen FINDINGS: There is residual water-soluble contrast seen in distended loops of small bowel in the left hypogastr ic region, measuring up to 5.1 cm. Some contrast is also seen in the right colon. Patient underwent small bowel series with water-soluble contrast 3 days ago. The NG tube tip and side port projected in the proximal stomach. CONCLUSION: Persistent dilated loops of small bowel with residual water-soluble contrast into the lumen from smal l bowel series 3 days ago. Luis Sharp MD on May 16, 2017 at 6:32 Board Certified Radiologist. This report was verified electronically.
--- NOTE | 2017-05-16 06:39 | RADRPT ---
EXAM DATE/TIME: 05/16/2017 04:28 [facility] COMPARISON: CHEST SINGLE AP, May 13, 2017, 10:22. CT PULMONARY ANGIOGRAM, April 07, 2017, 17:51. CHEST S LINA AP, May 14, 2017, 15:46. CHEST SINGLE AP, May 15, 2017, 8:58. INDICATIONS : Respiratory disease. MEDICAL HISTORY : Hypertension. Chronic obstructive pulmonary disease. Cardiovascular disease. SURGICAL HISTORY : None. ENCOUNTER: Subsequent ACUITY: 4 - 6 days PAIN SCORE: 0/10 LOCATION: Bilateral chest FINDINGS: Improved aeration of the left lower lung; no residual infiltrates seen. In the medial right upper jayda ng, there is a new opacity measuring 2.9 cm suggesting a new focal infiltrate. There is also a small er area of opacity measuring 1.3 cm adjacent to the inferomedial margin of the right lateral apical b felicitas. The heart is normal in size. Moderate tortuosity descending thoracic aorta. Gastric tube tip and side-port project within the. CONCLUSION: 1. Improved aeration of the left lower lung with resolved infiltrate. 2. New consolidative infiltrate in the medial right upper lobe. Luis Sharp MD on May 16, 2017 at 6:36 Board Certified Radiologist. This report was verified electronically.
[2017-05-16] MEDS: COLLAGENASE OINT 30 GM TUBE TOPICAL SCH (09:00)
[2017-05-16] MEDS: POTASSIUM CHLORIDE 20 MEQ CONTROLLED RELEASE TAB PO SCH ×2 (09:00→09:20)
[2017-05-16] MEDS: POTASSIUM CHLORIDE 25 MEQ EFFERVESCENT TAB PO SCH ×2 (09:19→21:00)
[2017-05-16] MEDS: MAGNESIUM HYDROXIDE SUSP 30 ML CUP PO PRN (09:19)
[2017-05-16] MEDS: SPIRONOLACTONE 25 MG TAB PO SCH ×2 (09:20→17:22)
[2017-05-16] MEDS: LISINOPRIL 5 MG TAB PO SCH (09:20)
[2017-05-16] MEDS: DOCUSATE SODIUM 100 MG CAP PO SCH ×2 (09:20→21:00)
[2017-05-16] MEDS: DILTIAZEM HCL 30 MG TAB PO SCH ×4 (09:20→21:00)
[2017-05-16] MEDS: CARVEDILOL 6.25 MG TAB PO SCH ×2 (09:20→21:00)
[2017-05-16] MEDS: BISACODYL 10 MG SUPP RECTAL SCH (09:20)
[2017-05-16] MEDS: FUROSEMIDE 40 MG/4 ML VIAL IV PUSH SCH ×2 (09:21→17:22)
[2017-05-16] MEDS: SODIUM CHLORIDE 0.9% FLUSH 10 ML FLUSH IV FLUSH SCH ×2 (09:21→21:00)
--- NOTE | 2017-05-16 10:54 | HHI.CCPN ---
Subjective Remarks/Hospital Course Patient is a 72-year-old -[place] male with past medical history significant for COPD on home oxygen, chronic systolic heart failure EF 20-25%, chronic atrial fibrillation, bilateral lower extremity DVT on Coumadin, who was admitted to the hospitalist service on 05/13/2017 with history of nausea, vomiting with no diarrhea, not passing gas or stools for last 2 days. ER workup which included a CT of the abdomen pelvis showed small bowel obstruction which was high-grade. General surgery was consulted and patient was admitted to the floor. He was kept n.p.o. and NGT was placed. He was placed on a heparin drip for subtherapeutic INR. Today Halicat was called as patient became acutely hypoxemic. His O2 saturation went down to low 70s and was placed on 100% nonrebreather. Stat chest x-ray showed increasing interstitial edema and pulmonary vascular congestion indicating a CHF exacerbation. I evaluated the patient in the ICU. He is in a moderate respiratory distress currently on 100% nonrebreather. Physical exam revealed elevated JVD and bibasilar crackles. It appears that patient has acute systolic heart failure exacerbation. I will give IV Lasix 40 mg 1 now and scheduled 40 every 12. If his condition does not improve with the above measures patient may need endotracheal intubation, he is not a candidate for BiPAP due to significant small bowel obstruction and risk of aspiration. SB series is pending at this time, and Dr. Murray thinks it is ileus. Start IV Reglan, keep K>4 SUBJ 05/15/17: Remains on partial nonrebreather desaturates when placed on Ventimask 50%. He claims that he is breathing more comfortably. With IV Lasix made 1 L urine overnight. Started on Reglan yesterday ileus persist. Increase Reglan to 10 mg every 8. Small bowel series showing high grade obstruction. 05/16: Supplemental O2 down to 5 liters. Bowel is opening up, no surgery planned. Transfer. Objective Vital Signs Date Time Temp Pulse Resp B/P (MAP) Pulse Ox O2 Delivery O2 Flow Rate FiO2 05/16/17 10:00 100 05/16/17 08:00 94 Nasal Cannula 6.00 05/16/17 08:00 97.2 16 157/86 (109) 05/16/17 07:37 50 Intake and Output 05/16/17 05/16/17 05/17/17 08:00 16:00 00:00 Intake Total 220 ml Output Total 650 ml Balance -430 ml Result Diagram: 05/16/17 0415 05/15/17 9505 Imaging Chest x-ray shows bilateral pulmonary vascular congestion and atelectasis Objective Remarks GENERAL: Ill-appearing male in no respiratory distress currently on 5L SKIN: warm/dry. HEAD: Atraumatic. Normocephalic. EYES: No scleral icterus. No injection or drainage. ENT: No nasal bleeding or discharge. Mucous membranes dry NECK: Trachea midline. Supple. JVD+ CARDIOVASCULAR: S1-S2, no m,r. RESPIRATORY: Mild accessory muscle use. Breath sounds equal bilaterally with few fine basilar crackles GASTROINTESTINAL: Abdomen soft, mildly distended. No TTP. No guarding. MUSCULOSKELETAL: Trace bilateral pretibial edema. Bilateral chronic venous stasis changes. Well perfused. NEUROLOGICAL: Awake and alert. Motor grossly within normal limits. Normal speech. A/P Assessment and Plan ASSESSMENT: Acute hypoxemic respiratory failure Acute systolic heart failure exacerbation COPD Small bowel obstruction Hypokalemia Cardiomyopathy EF 20-25% COPD on home oxygen Bilateral DVT Chronic atrial fibrillation PLAN: NEURO: -Avoid opiates due to ileus RESP: -Currently on 100% nonrebreather, titrate FiO2 to keep saturation above 88% -DuoNeb every 4 hours scheduled and as needed - Solu-Medrol 60 every 8 hours -Empiric Azactam for COPD exacerbation CV: -Hold p.o. Lasix, IV Lasix 40 mg 1 and 40 every 12 -Start Aldactone 25 mg p.o. twice daily -Chest x-ray shows worsening interstitial edema -Currently on Coreg and Cardizem and lisinopril for CHF and A. fib -Continue IV heparin GI: -Dr. Murray following for small bowel obstruction -Keep NPO. NGT intermittent wall suction -Small bowel series showing partial obstruction, contrast is moving through. -Discussed with Dr. Murray who is following. -Increase IV Reglan to 10 mg every 8 hours : -Monitor renal function closely. Faulkner catheter. IV Lasix as above -Aldactone 25 mg p.o. twice daily ID: -Send sputum culture, urine culture -Empiric Azactam HEME: -Monitor CBC, CMP, coags ENDO: -Electrolyte replacement per ICU protocol PROPH: -Bilateral lower extremity SCDs. IV heparin. IV famotidine LINES: -Utilize peripheral IVs, central line if needed Overall impression: End-stage systolic heart failure and COPD. Small new right upper lobe infiltrate. No surgery planned, SBO resolving. Continue antibiotics for lung, transfer. Kalin Payne MD May 16, 2017 10:54
[2017-05-16] MEDS: LEVOFLOXACIN 750 MG PREMIX INJ 150 ML IV SCH (13:08)
[2017-05-16] MEDS: HEPARIN-D5W 25,000 U/250 ML 250 ML IV PRN (13:10)
--- NOTE | 2017-05-16 15:21 | HHI.PR ---
cc: Raleigh Murray MD Subjective Subjective Notes DAILY PROGRESS NOTE FOR SURGICAL ATTENDING, DR. RALEIGH MURRAY I really want something to eat I don't like this tube in my nose Objective Vitals/I&O Vital Signs Date Time Temp Pulse Resp B/P (MAP) Pulse Ox O2 Delivery O2 Flow Rate FiO2 05/16/17 12:00 97.1 90 17 126/77 (93) 95 05/16/17 08:00 Nasal Cannula 6.00 05/16/17 07:37 50 Labs Laboratory Tests Test 05/15/17 16:16 05/15/17 16:29 05/15/17 23:43 05/16/17 04:15 Activated Partial Thromboplast Time 26.6 34.3 36.9 Lactic Acid Level 2.2 Blood Urea Nitrogen 18 Creatinine 0.85 Random Glucose 155 Total Protein 8.1 Albumin 3.0 Calcium Level 9.5 Magnesium Level 1.9 Alkaline Phosphatase 67 Aspartate Amino Transf (AST/SGOT) 14 Alanine Aminotransferase (ALT/SGPT) 14 Total Bilirubin 0.8 Sodium Level 141 Potassium Level 3.6 Chloride Level 97 Carbon Dioxide Level 33.0 Anion Gap 11 Estimat Glomerular Filtration Rate 107 White Blood Count 13.1 Red Blood Count 5.68 Hemoglobin 16.8 Hematocrit 50.5 Mean Corpuscular Volume 88.9 Mean Corpuscular Hemoglobin 29.6 Mean Corpuscular Hemoglobin Concent 33.3 Red Cell Distribution Width 18.6 Platelet Count 310 Mean Platelet Volume 7.8 Neutrophils (%) (Auto) 91.3 Lymphocytes (%) (Auto) 5.1 Monocytes (%) (Auto) 3.4 Eosinophils (%) (Auto) 0.0 Basophils (%) (Auto) 0.2 Neutrophils # (Auto) 11.9 Lymphocytes # (Auto) 0.7 Monocytes # (Auto) 0.4 Eosinophils # (Auto) 0.0 Basophils # (Auto) 0.0 CBC Comment DIFF FINAL Differential Comment Test 05/16/17 13:08 Activated Partial Thromboplast Time 42.0 Radiology Last Impressions Chest X-Ray 05/16/17 0600 Signed Impressions: Service Date/Time: Tuesday, May 16, 2017 04:28 - CONCLUSION: 1. Improved aeration of the left lower lung with resolved infiltrate. 2. New consolidative infiltrate in the medial right upper lobe. Luis Sharp MD Abdomen X-Ray 05/16/17 0600 Signed Impressions: Service Date/Time: Tuesday, May 16, 2017 04:16 - CONCLUSION: Persistent dilated loops of small bowel with residual water-soluble contrast into the lumen from small bowel series 3 days ago. Luis Sharp MD Small Bowel X-Ray 05/14/17 0000 Signed Impressions: Service Date/Time: Sunday, May 14, 2017 11:20 - CONCLUSION: 1. Findings consistent with CT examination and suggestive of high grade obstruction in the distal jejunum/proximal ileum. Kwaku Vences MD Abdomen/Pelvis CT 05/13/17 1005 Signed Impressions: Service Date/Time: Saturday, May 13, 2017 11:36 - CONCLUSION: 1. Mid to distal jejunal small bowel ileus with acute transition characteristic of high grade small bowel obstruction. 2. Uncomplicated colonic diverticulosis. 3. Mild ascites. 4. Uncomplicated colonic diverticulosis. Conor John MD Last Impressions Abdomen X-Ray 05/15/17 1400 Signed Impressions: Service Date/Time: May 13:33 - CONCLUSION: Distended loops of small bowel throughout the abdomen. NG tube within the stomach. Amari Thomas MD Chest X-Ray 05/15/17 0000 Signed Impressions: Service Date/Time: May 08:58 - CONCLUSION: Normal examination. NG tube in good position. Amari Thomas MD Small Bowel X-Ray 05/14/17 0000 Signed Impressions: Service Date/Time: Sunday, May 14, 2017 11:20 - CONCLUSION: 1. Findings consistent with CT examination and suggestive of high grade obstruction in the distal jejunum/proximal ileum. Kwaku Vences MD Abdomen/Pelvis CT 05/13/17 1005 Signed Impressions: Service Date/Time: Saturday, May 13, 2017 11:36 - CONCLUSION: 1. Mid to distal jejunal small bowel ileus with acute transition characteristic of high grade small bowel obstruction. 2. Uncomplicated colonic diverticulosis. 3. Mild ascites. 4. Uncomplicated colonic diverticulosis. Conor John MD Cardiovascular: Regular Lungs: Upper airway course sound Abdomen: Non-tender Extremities: Perfused, SCD's on Narrative Exam Not much recorded from NG tube A/P Problem List: (1) Ileus ICD Codes: K56.7 - Ileus, unspecified Status: Acute (2) History of CHF (congestive heart failure) ICD Codes: Z86.79 - Personal history of other diseases of the circulatory system Status: Acute (3) DVT (deep venous thrombosis) ICD Codes: I82.409 - Acute embolism and thrombosis of unspecified deep veins of unspecified lower extremity Status: Acute (4) Atrial fibrillation ICD Codes: I48.91 - Unspecified atrial fibrillation Status: Chronic (5) History of DVT (deep vein thrombosis) ICD Codes: Z86.718 - Personal history of other venous thrombosis and embolism Status: Acute (6) technician terminal and repeater (current) use of anticoagulants ICD Codes: Z79.01 - long-term (current) use of anticoagulants Status: Acute Assessment and Plan 72 old gentleman who was admitted to the hospital for small bowel obstruction nausea vomiting urinary tract infection he is presently on a heparin drip He's not having much out of his NG tube advance to clear liquids because he says he is very thirsty Upper GI continues to show slow progression of the contrast throughout the small bowel. Clinically he does not appear to have a small bowel obstruction I will start some by mouth Suppository Medical management Discussed with nursing staff Attending Statement NOTE FOR SURGICAL ATTENDING, DR. RALEIGH MURRAY . I attest that I had a [id number] encounter with the patient on the same day, and personally performed and documented my assessment and findings in the medical record. The following services were provided during this hospital visit: Chart data review, vital sign assessments/reviewing monitor data Review of consultations notes if present. Medication orders/review and/or management Ordering and/or reviewing lab tests Ordering and/or interpreting/reviewing x-rays and/or diagnostic studies Care of the patient and discussion of the patient with the care team Documentation time To help prompt me to consider important information that might be impacting today's encounter and assessment, information from prior notes written by myself or my colleagues may have been "brought forward/copy and pasted" into today's note. Raleigh Murray MD May 16, 2017 15:21
--- NOTE | 2017-05-16 15:41 | HHI.HCPN ---
Reason for visit a. To assist with evaluation and management of symptoms including: Abdominal pain, shortness of breath, debility. b. To assist medical decision maker(s) with: better understanding of current medical conditions; weighing benefits/burdens of medical treatment options; making medical treatment decisions. . Subjective/Interval History Palliative care follow-up for further clarification of goals of care. Patient seen in surgical ICU. He was sitting up in recliner chair in no acute distress. Denies shortness of breath, pain or abdominal discomfort. Currently on liquid diet, NG to suction. Patient afebrile, currently tolerating O2 via nasal cannula at 5 L which is home baseline. Chest x-ray revealing improved aeration of the left lower lung with resolved infiltrate. New consolidative infiltrate in the medial right upper lobe. Received Dulcolax suppository earlier today, no bowel movement as of yet. Remains on Reglan 10 mg every 8 hours. Abdominal chest x-ray revealing persistent dilated loops of small bowel with residual water-soluble contrast in the lumen. Patient verbalized feeling frustrated regarding his current clinical condition. Wishing to go home as soon as possible. Reviewed PT recommendation of discharge home with home health, patient verbalized "I don't need any help at home". reviewed that given his end stage CHF and COPD, he is likely to benefit from home hospice for symptom management. Patient verbalized that he will think about it. Case discussed with bedside RN. . Family/friend interactions Tc to patient's cousin/HCS Vázquez Tsering, yolanda message in VM. Patient provided verbal authorization for med updates to cousin. . Advance Directives Health Care Surrogate: Copy in medical record Advance Directive Specifics Date completed: 05/15/2017. . Health Care Surrogate(s): helensin Kathie Cagle Keri listed as healthcare surrogate decision maker. Alternate surrogate is helensin Dee Taylor. . Documented care wishes: Patient verbalized that in the event of being placed on life support, he would only allow 2 days and if no recovery, okay to "let him go" . Significant change in goals: Goals of therapy remain aggressive. . Objective Vital Signs Date Time Temp Pulse Resp B/P (MAP) Pulse Ox O2 Delivery O2 Flow Rate FiO2 05/16/17 12:00 97.1 90 17 126/77 (93) 95 05/16/17 12:00 90 05/16/17 10:00 100 05/16/17 08:00 94 Nasal Cannula 6.00 05/16/17 08:00 99 05/16/17 08:00 97.2 100 16 157/86 (109) 94 05/16/17 07:37 96 Venturi Mask 50 05/16/17 07:00 94 Venturi Mask 50 05/16/17 06:00 90 05/16/17 04:00 100 05/16/17 04:00 98.4 100 27 157/83 (107) 90 05/16/17 02:00 96 05/16/17 00:00 82 05/16/17 00:00 98.0 82 15 169/85 (113) 92 05/15/17 22:00 89 05/15/17 20:00 98.7 100 28 149/88 (108) 100 05/15/17 20:00 100 05/15/17 19:30 94 Venturi Mask 50 05/15/17 19:00 94 Non-Rebreather 12.00 05/15/17 18:00 92 05/15/17 16:55 96 Venturi Mask 8.00 50 05/15/17 16:48 82 21 05/15/17 16:00 94 05/15/17 16:00 98.4 94 36 155/85 (108) 97 Intake & Output 05/16/17 05/16/17 07:00 19:00 Intake Total 320 ml Output Total 650 ml Balance -330 ml Intake Oral 120 ml IV Total 200 ml Output Urine Total 300 ml Stool Total 0 ml Gastric Drainage Total 350 ml Physical Exam CONSTITUTIONAL/GENERAL: This is an adequately nourished patient, in no apparent distress. TUBES/LINES/DRAINS: Nasal cannula, NG tube, PIV. SKIN: No jaundice, rashes. Skin temperature appropriate. Not diaphoretic. Nonhealing sores to bilateral lower extremities. HEAD: Atraumatic. Normocephalic. EYES: Pupils equal and round and reactive. Extraocular motions intact. No scleral icterus. No injection or drainage. ENT: Hearing grossly normal. Nose without bleeding or purulent drainage. Moist oral mucosa. NG to right nare. NECK: Trachea midline. Supple, nontender. CARDIOVASCULAR: Regular rate and rhythm. Peripheral pulses symmetric. Venous stasis to bilateral lower extremities. RESPIRATORY/CHEST: Symmetric, unlabored respirations. Coarse breath sounds bilaterally. GASTROINTESTINAL: Abdomen large, round, distended. Positive bowel sounds. GENITOURINARY: Without palpable bladder distension. MUSCULOSKELETAL: Extremities without clubbing. Edema to bilateral lower extremities. NEUROLOGICAL: Awake and alert x self, place and situation. Follows commands. Moves all extremities. PSYCHIATRIC: Intermittent irritability. . Diagnostic Tests Laboratory Laboratory Tests Test 05/13/17 21:36 05/14/17 05:43 05/14/17 15:14 05/14/17 16:30 Activated Partial Thromboplast Time 26.0 SEC (24.3-30.1) 33.5 SEC (24.3-30.1) 73.9 SEC (24.3-30.1) White Blood Count 9.5 TH/MM3 (4.0-11.0) Red Blood Count 4.64 MIL/MM3 (4.50-5.90) Hemoglobin 13.7 GM/DL (13.0-17.0) Hematocrit 40.7 % (39.0-51.0) Mean Corpuscular Volume 87.7 FL (80.0-100.0) Mean Corpuscular Hemoglobin 29.5 PG (27.0-34.0) Mean Corpuscular Hemoglobin Concent 33.7 % (32.0-36.0) Red Cell Distribution Width 18.2 % (11.6-17.2) Platelet Count 303 TH/MM3 (150-450) Mean Platelet Volume 7.7 FL (7.0-11.0) Neutrophils (%) (Auto) 70.6 % (16.0-70.0) Lymphocytes (%) (Auto) 15.2 % (9.0-44.0) Monocytes (%) (Auto) 12.7 % (0.0-8.0) Eosinophils (%) (Auto) 1.0 % (0.0-4.0) Basophils (%) (Auto) 0.5 % (0.0-2.0) Neutrophils # (Auto) 6.7 TH/MM3 (1.8-7.7) Lymphocytes # (Auto) 1.4 TH/MM3 (1.0-4.8) Monocytes # (Auto) 1.2 TH/MM3 (0-0.9) Eosinophils # (Auto) 0.1 TH/MM3 (0-0.4) Basophils # (Auto) 0.0 TH/MM3 (0-0.2) CBC Comment DIFF FINAL Differential Comment Blood Urea Nitrogen 12 MG/DL (7-18) Creatinine 0.65 MG/DL (0.60-1.30) Random Glucose 89 MG/DL (74-106) Calcium Level 8.6 MG/DL (8.5-10.1) Sodium Level 140 MEQ/L (136-145) Potassium Level 3.3 MEQ/L (3.5-5.1) Chloride Level 102 MEQ/L (98-107) Carbon Dioxide Level 30.7 MEQ/L (21.0-32.0) Anion Gap 7 MEQ/L (5-15) Estimat Glomerular Filtration Rate 146 ML/MIN (>89) Phosphorus Level 4.3 MG/DL (2.5-4.9) Magnesium Level 1.7 MG/DL (1.5-2.5) Blood Gas Puncture Site LT RADIAL Blood Gas Patient Temperature 98.6 Blood Gas HCO3 31 mmol/L (22-26) Blood Gas Base Excess 6.1 mmol/L (-2-2) Blood Gas Oxygen Saturation 90 % (90-100) Arterial Blood pH 7.41 (7.380-7.420) Arterial Blood Partial Pressure CO2 49 mmHg (38-42) Arterial Blood Partial Pressure O2 66 mmHg (61-120) Arterial Blood Oxygen Content 19.6 Vol % (12.0-20.0) Arterial Blood Carboxyhemoglobin 2.0 % (0-4) Arterial Blood Methemoglobin 0.6 % (0-2) Blood Gas Hemoglobin 15.5 G/DL (12.0-16.0) Oxygen Delivery Device VENTI MASK Blood Gas Liter Flow 6 L/M Blood Gas Inspired Oxygen 50 % Test 05/14/17 20:49 05/15/17 03:14 05/15/17 05:52 05/15/17 10:59 Activated Partial Thromboplast Time 54.1 SEC (24.3-30.1) 76.6 SEC (24.3-30.1) 201.0 SEC (24.3-30.1) White Blood Count 6.7 TH/MM3 (4.0-11.0) Red Blood Count 5.68 MIL/MM3 (4.50-5.90) Hemoglobin 16.8 GM/DL (13.0-17.0) Hematocrit 50.6 % (39.0-51.0) Mean Corpuscular Volume 89.0 FL (80.0-100.0) Mean Corpuscular Hemoglobin 29.6 PG (27.0-34.0) Mean Corpuscular Hemoglobin Concent 33.2 % (32.0-36.0) Red Cell Distribution Width 18.1 % (11.6-17.2) Platelet Count 307 TH/MM3 (150-450) Mean Platelet Volume 7.7 FL (7.0-11.0) Blood Urea Nitrogen 15 MG/DL (7-18) Creatinine 0.75 MG/DL (0.60-1.30) Random Glucose 148 MG/DL (74-106) Calcium Level 9.0 MG/DL (8.5-10.1) Magnesium Level 1.9 MG/DL (1.5-2.5) Sodium Level 142 MEQ/L (136-145) Potassium Level 3.4 MEQ/L (3.5-5.1) Chloride Level 99 MEQ/L (98-107) Carbon Dioxide Level 32.2 MEQ/L (21.0-32.0) Anion Gap 11 MEQ/L (5-15) Estimat Glomerular Filtration Rate 124 ML/MIN (>89) Test 05/15/17 16:16 05/15/17 16:29 05/15/17 23:43 05/16/17 04:15 Activated Partial Thromboplast Time 26.6 SEC (24.3-30.1) 34.3 SEC (24.3-30.1) 36.9 SEC (24.3-30.1) Lactic Acid Level 2.2 mmol/L (0.4-2.0) Blood Urea Nitrogen 18 MG/DL (7-18) Creatinine 0.85 MG/DL (0.60-1.30) Random Glucose 155 MG/DL (74-106) Total Protein 8.1 GM/DL (6.4-8.2) Albumin 3.0 GM/DL (3.4-5.0) Calcium Level 9.5 MG/DL (8.5-10.1) Magnesium Level 1.9 MG/DL (1.5-2.5) Alkaline Phosphatase 67 U/L (45-117) Aspartate Amino Transf (AST/SGOT) 14 U/L (15-37) Alanine Aminotransferase (ALT/SGPT) 14 U/L (12-78) Total Bilirubin 0.8 MG/DL (0.2-1.0) Sodium Level 141 MEQ/L (136-145) Potassium Level 3.6 MEQ/L (3.5-5.1) Chloride Level 97 MEQ/L (98-107) Carbon Dioxide Level 33.0 MEQ/L (21.0-32.0) Anion Gap 11 MEQ/L (5-15) Estimat Glomerular Filtration Rate 107 ML/MIN (>89) White Blood Count 13.1 TH/MM3 (4.0-11.0) Red Blood Count 5.68 MIL/MM3 (4.50-5.90) Hemoglobin 16.8 GM/DL (13.0-17.0) Hematocrit 50.5 % (39.0-51.0) Mean Corpuscular Volume 88.9 FL (80.0-100.0) Mean Corpuscular Hemoglobin 29.6 PG (27.0-34.0) Mean Corpuscular Hemoglobin Concent 33.3 % (32.0-36.0) Red Cell Distribution Width 18.6 % (11.6-17.2) Platelet Count 310 TH/MM3 (150-450) Mean Platelet Volume 7.8 FL (7.0-11.0) Neutrophils (%) (Auto) 91.3 % (16.0-70.0) Lymphocytes (%) (Auto) 5.1 % (9.0-44.0) Monocytes (%) (Auto) 3.4 % (0.0-8.0) Eosinophils (%) (Auto) 0.0 % (0.0-4.0) Basophils (%) (Auto) 0.2 % (0.0-2.0) Neutrophils # (Auto) 11.9 TH/MM3 (1.8-7.7) Lymphocytes # (Auto) 0.7 TH/MM3 (1.0-4.8) Monocytes # (Auto) 0.4 TH/MM3 (0-0.9) Eosinophils # (Auto) 0.0 TH/MM3 (0-0.4) Basophils # (Auto) 0.0 TH/MM3 (0-0.2) CBC Comment DIFF FINAL Differential Comment Test 05/16/17 13:08 Activated Partial Thromboplast Time 42.0 SEC (24.3-30.1) Result Diagram: 05/16/17 0415 05/15/17 2343 Imaging Last 24 hours Impressions Chest X-Ray 05/16/17599 Signed Impressions: Service Date/Time: Tuesday, May 16, 2017 04:28 - CONCLUSION: 1. Improved aeration of the left lower lung with resolved infiltrate. 2. New consolidative infiltrate in the medial right upper lobe. Luis Sharp MD Abdomen X-Ray 05/16/17599 Signed Impressions: Service Date/Time: Tuesday, May 16, 2017 04:16 - CONCLUSION: Persistent dilated loops of small bowel with residual water-soluble contrast into the lumen from small bowel series 3 days ago. Luis Sharp MD Assessment and Plan Disease Oriented Problem List: (1) Acute hypoxemic respiratory failure (2) Small bowel obstruction (3) COPD (chronic obstructive pulmonary disease) (4) Systolic heart failure (5) Cardiomyopathy (6) Leg ulcer, left Symptom Scale: (1) Abdominal pain 0-10 Scale: 0 (2) Dyspnea 0-10 Scale: Unable to quantify Pertinent Non-Medical Issues Psychosocial: Patient is single, never . No children. [employer] , disabled secondary to PTSD. Patient was born and raised in [place]. Highest level of education is high school. Patient has 2 siblings in the area, one cousin that lives in [place]. Spiritual: No catholic affiliation. Legal: Advance directives completed. Ethical issues impacting care: No ethical issues identified. . Important Contacts HCS/cousin Kathie Saavedra . Alternate surrogate/cousin Dee Taylor . . Prognosis Mr. Rocha is a 72-year-old male with a medical history significant for CHF, COPD, atrial fibrillation, medication noncompliance. Patient with significant progression of cardiopulmonary disease. He is O2 dependent, EF of 20%. Patient admitted for small bowel obstruction, somewhat improving. However, patient remains at high risk for further complications, continued decline and . Patient appears hospice appropriate should he elects comfort-directed care given significant cardiopulmonary disease. . Code Status: Full Code Plan * CODE STATUS: Full code. * HEALTHCARE DECISION-MAKING: Patient participated in medical decision making. He appears to have a fair understanding of his overall clinical condition. Retains the ability to weight benefits versus burdens of treatment options. Patient has designated is cousin Kathie Saavedra as healthcare surrogate decision maker, alternate is cousin Dee Taylor. * GOALS OF CARE: Patient electing to pursue aggressive management to include surgical intervention for small bowel obstruction if medically needed. Hospice philosophy and benefits has been reviewed at length with patient and given end- stage CHF, COPD. Patient receptive to palliative care follow-up. * SYMPTOMS: = Abdominal pain, secondary to constipation, partial SBO. NG tube and terminated to wall suction. Currently on Reglan 10 mg every 8 hours. Has been given Dulcolax suppository earlier today, no bowel movement as of this afternoon. General surgery following. = Shortness of breath: Secondary to COPD , CHF exacerbation. Transitioned from Venturi mask to nasal cannula 5 L, tolerating well. = Debility: chronic. Rehabilitation was recommended during prior admission, patient declined. PT following during this admission, home with home health recommended. * Case discussed with bedside RN. * Palliative care contact information has been provided to patient and family. * Palliative care will continue to follow up for further clarification of goals of care as patient's clinical course continues to evolve. . Time Spent Total Floor Time (mins): 27 (Total time to include review of medical records, physical exam, goals of care conversation with patient, case discussion with bedside RN.) >50% Counseling/Coord of Care: Yes Attestation To help prompt me to consider important information that might be impacting today's encounter and assessment, information from prior notes written by myself or my colleagues may have been "brought forward" into today's note. My signature on this note, however, is an attestation that I personally performed the exam, history, and/or decision-making noted today, and, unless otherwise indicated, the interactions with patient, family, and staff as well as the review of records all occurred today. I also attest that the listed assessment and stated plan reflect my best clinical judgment today based on the combination of historical information, prior notes, and today's exam/ interactions. When time spent is documented, it refers only to time spent today by the signer, or if indicated, combined time spent today by collaborating physician/nurse practitioner. Areli Dunaway May 16, 2017 15:41
[2017-05-17] VITALS (11 sets, daily range): BP systolic 120–156; BP diastolic 70–90; PULSE 74–110; RESP 18–20; TEMP 97.6–98.9; O2SAT 91–96
[2017-05-17] MEDS: methylPREDNISolone SOD SUCC 125 MG/2 ML VIAL IV PUSH SCH ×4 (00:11→17:41)
[2017-05-17] MEDS: METOCLOPRAMIDE HCL 10 MG/2 ML VIAL IV PUSH SCH ×3 (05:38→21:53)
[2017-05-17] MEDS: HEPARIN-D5W 25,000 U/250 ML 250 ML IV PRN (05:41)
[2017-05-17] MEDS: RESP: ALBUTEROL 2.5 MG/IPRATROPIUM 0.5 MG NEB (SCH) NEB ×4 (08:00→19:28)
[2017-05-17] MEDS: CARVEDILOL 6.25 MG TAB PO SCH ×2 (08:50→21:54)
[2017-05-17] MEDS: DOCUSATE SODIUM 100 MG CAP PO SCH ×2 (08:50→21:54)
[2017-05-17] MEDS: POTASSIUM CHLORIDE 25 MEQ EFFERVESCENT TAB PO SCH ×2 (08:50→21:55)
[2017-05-17] MEDS: LISINOPRIL 5 MG TAB PO SCH (08:50)
[2017-05-17] MEDS: POTASSIUM CHLORIDE 20 MEQ CONTROLLED RELEASE TAB PO SCH (08:50)
[2017-05-17] MEDS: FUROSEMIDE 40 MG/4 ML VIAL IV PUSH SCH ×2 (08:50→17:40)
[2017-05-17] MEDS: DILTIAZEM HCL 30 MG TAB PO SCH ×4 (08:50→21:54)
[2017-05-17] MEDS: SODIUM CHLORIDE 0.9% FLUSH 10 ML FLUSH IV FLUSH SCH ×2 (08:51→21:55)
[2017-05-17] MEDS: COLLAGENASE OINT 30 GM TUBE TOPICAL SCH (08:51)
[2017-05-17] MEDS: SPIRONOLACTONE 25 MG TAB PO SCH ×2 (08:51→17:43)
[2017-05-17] MEDS: BISACODYL 10 MG SUPP RECTAL SCH (08:52)
[2017-05-17] MEDS: MAGNESIUM HYDROXIDE SUSP 30 ML CUP PO PRN (10:14)
[2017-05-17] MEDS: LEVOFLOXACIN 750 MG PREMIX INJ 150 ML IV SCH (10:15)
--- NOTE | 2017-05-17 16:27 | HHI.PR ---
cc: Raleigh Murray MD Subjective Subjective Notes DAILY PROGRESS NOTE FOR SURGICAL ATTENDING, DR. RALEIGH MURRAY I want this tube out of my nose I just need some milk of magnesia and open my bowels up I have no abdominal pain I wish I could eat something you guys are starving me Objective Vitals/I&O Vital Signs Date Time Temp Pulse Resp B/P (MAP) Pulse Ox O2 Delivery O2 Flow Rate FiO2 05/17/17 16:00 97.7 74 20 146/90 (108) 91 05/17/17 15:52 Nasal Cannula 5.00 05/16/17 07:37 50 Labs Laboratory Tests Test 05/17/17 00:14 Activated Partial Thromboplast Time 45.0 Radiology Last Impressions Chest X-Ray 05/16/17 0600 Signed Impressions: Service Date/Time: Tuesday, May 16, 2017 04:28 - CONCLUSION: 1. Improved aeration of the left lower lung with resolved infiltrate. 2. New consolidative infiltrate in the medial right upper lobe. Luis Sharp MD Abdomen X-Ray 05/16/17 0600 Signed Impressions: Service Date/Time: Tuesday, May 16, 2017 04:16 - CONCLUSION: Persistent dilated loops of small bowel with residual water-soluble contrast into the lumen from small bowel series 3 days ago. Luis Sharp MD Small Bowel X-Ray 05/14/17 0000 Signed Impressions: Service Date/Time: Sunday, May 14, 2017 11:20 - CONCLUSION: 1. Findings consistent with CT examination and suggestive of high grade obstruction in the distal jejunum/proximal ileum. Kwaku Vences MD Abdomen/Pelvis CT 05/13/17 1005 Signed Impressions: Service Date/Time: Saturday, May 13, 2017 11:36 - CONCLUSION: 1. Mid to distal jejunal small bowel ileus with acute transition characteristic of high grade small bowel obstruction. 2. Uncomplicated colonic diverticulosis. 3. Mild ascites. 4. Uncomplicated colonic diverticulosis. Conor John MD Last Impressions Abdomen X-Ray 05/15/17 1400 Signed Impressions: Service Date/Time: May 13:33 - CONCLUSION: Distended loops of small bowel throughout the abdomen. NG tube within the stomach. Amari Thomas MD Chest X-Ray 05/15/17 0000 Signed Impressions: Service Date/Time: May 08:58 - CONCLUSION: Normal examination. NG tube in good position. Amari Thomas MD Small Bowel X-Ray 05/14/17 0000 Signed Impressions: Service Date/Time: Sunday, May 14, 2017 11:20 - CONCLUSION: 1. Findings consistent with CT examination and suggestive of high grade obstruction in the distal jejunum/proximal ileum. Kwaku Vences MD Abdomen/Pelvis CT 05/13/17 1005 Signed Impressions: Service Date/Time: Saturday, May 13, 2017 11:36 - CONCLUSION: 1. Mid to distal jejunal small bowel ileus with acute transition characteristic of high grade small bowel obstruction. 2. Uncomplicated colonic diverticulosis. 3. Mild ascites. 4. Uncomplicated colonic diverticulosis. Conor John MD Cardiovascular: Irregular Lungs: Clear Abdomen: Non-distended, Non-tender, Other, BS normal Extremities: No edema, Perfused Narrative Exam Not much recorded from NG tube only about 400 cc A/P Problem List: (1) Ileus ICD Codes: K56.7 - Ileus, unspecified Status: Acute (2) History of CHF (congestive heart failure) ICD Codes: Z86.79 - Personal history of other diseases of the circulatory system Status: Acute (3) DVT (deep venous thrombosis) ICD Codes: I82.409 - Acute embolism and thrombosis of unspecified deep veins of unspecified lower extremity Status: Acute (4) Atrial fibrillation ICD Codes: I48.91 - Unspecified atrial fibrillation Status: Chronic (5) History of DVT (deep vein thrombosis) ICD Codes: Z86.718 - Personal history of other venous thrombosis and embolism Status: Acute (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 Clinically he does not appear to have a small bowel obstruction I will start some by mouth DC NG tube Suppository Medical management I told him if he does not progress by Friday after having his NG tube pulled out he will require diagnostic laparoscopy to see if he has an intermittent obstruction I think he has just a severe ileus We'll have to hold his heparin for 4-5 hours prior to surgical intervention if this is required Discussed with nursing staff Attending Statement NOTE FOR SURGICAL ATTENDING, DR. RALEIGH MURRAY I attest that I had a [id number] encounter with the patient on the same day, and personally performed and documented my assessment and findings in the medical record. The following services were provided during this hospital visit: Chart data review, vital sign assessments/reviewing monitor data Review of consultations notes if present. Medication orders/review and/or management Ordering and/or reviewing lab tests Ordering and/or interpreting/reviewing x-rays and/or diagnostic studies Care of the patient and discussion of the patient with the care team Documentation time To help prompt me to consider important information that might be impacting today's encounter and assessment, information from prior notes written by myself or my colleagues may have been "brought forward/copy and pasted" into today's note. Raleigh Murray MD May 17, 2017 16:27
--- NOTE | 2017-05-17 17:17 | HHI.PR ---
Subjective Remarks In bed. Patient in bed. With NG tube on draining black colorred fluid. Patient stillon 5L NC. With sob. No cough No much nausea. Says she wants all tubes pulled out be cause he is "sick of all" Objective Vitals Vital Signs Date Time Temp Pulse Resp B/P (MAP) Pulse Ox O2 Delivery O2 Flow Rate FiO2 05/17/17 16:00 97.7 74 20 146/90 (108) 91 05/17/17 15:52 91 Nasal Cannula 5.00 05/17/17 12:00 97.8 92 20 141/75 (97) 91 05/17/17 12:00 75 05/17/17 08:49 92 Nasal Cannula 5.00 05/17/17 08:00 Nasal Cannula 5.00 05/17/17 08:00 85 05/17/17 08:00 97.8 89 20 142/86 (104) 91 05/17/17 05:43 98.9 97 18 144/86 (105) 96 05/17/17 04:00 86 05/17/17 04:00 94 Nasal Cannula 5.00 05/17/17 02:29 97.6 88 18 156/79 (104) 93 05/17/17 00:00 82 05/17/17 00:00 94 Nasal Cannula 5.00 05/16/17 23:15 94 Nasal Cannula 5.00 05/16/17 23:15 89 05/16/17 22:09 87 05/16/17 22:09 97.7 87 23 144/83 (103) 95 05/16/17 22:05 92 Nasal Cannula 6.00 05/16/17 20:21 93 Nasal Cannula 5.00 I/O 05/16/17 05/16/17 05/16/17 05/17/17 05/17/17 05/17/17 06:59 14:59 22:59 06:59 14:59 22:59 Intake Total 320 ml 1630 ml 250 ml Output Total 650 ml 2875 ml 600 ml 550 ml Balance -330 ml -1245 ml -350 ml -550 ml Intake Oral 120 ml 1570 ml IV Total 200 ml 250 ml Tube Irrigant 60 ml Output Urine Total 300 ml 1350 ml 550 ml Stool Total 0 ml Gastric Drainage Total 350 ml 1525 ml 600 ml # Bowel Movements 0 0 Result Diagram: 05/16/17 0415 05/15/17 2343 Imaging Last Impressions Chest X-Ray 05/16/17 0600 Signed Impressions: Service Date/Time: Tuesday, May 16, 2017 04:28 - CONCLUSION: 1. Improved aeration of the left lower lung with resolved infiltrate. 2. New consolidative infiltrate in the medial right upper lobe. Luis Sharp MD Abdomen X-Ray 05/16/17 0600 Signed Impressions: Service Date/Time: Tuesday, May 16, 2017 04:16 - CONCLUSION: Persistent dilated loops of small bowel with residual water-soluble contrast into the lumen from small bowel series 3 days ago. Luis Sharp MD Small Bowel X-Ray 05/14/17 0000 Signed Impressions: Service Date/Time: Sunday, May 14, 2017 11:20 - CONCLUSION: 1. Findings consistent with CT examination and suggestive of high grade obstruction in the distal jejunum/proximal ileum. Kwaku Vences MD Abdomen/Pelvis CT 05/13/17 1005 Signed Impressions: Service Date/Time: Saturday, May 13, 2017 11:36 - CONCLUSION: 1. Mid to distal jejunal small bowel ileus with acute transition characteristic of high grade small bowel obstruction. 2. Uncomplicated colonic diverticulosis. 3. Mild ascites. 4. Uncomplicated colonic diverticulosis. Conor John MD Objective Remarks GENERAL: Ill-appearing male in no respiratory distress currently on 5L SKIN: warm/dry. HEAD: Atraumatic. Normocephalic. EYES: No scleral icterus. No injection or drainage. ENT: No nasal bleeding or discharge. Mucous membranes dry NECK: Trachea midline. Supple. JVD+ CARDIOVASCULAR: S1-S2, no m,r. RESPIRATORY: Mild accessory muscle use. Breath sounds equal bilaterally with few fine basilar crackles GASTROINTESTINAL: Abdomen soft, mildly distended. No TTP. No guarding. MUSCULOSKELETAL: Trace bilateral pretibial edema. Bilateral chronic venous stasis changes. Well perfused. NEUROLOGICAL: Awake and alert. Motor grossly within normal limits. Normal speech. A/P Assessment and Plan Acute hypoxemic respiratory failure Acute systolic heart failure exacerbation COPD Small bowel obstruction Hypokalemia Cardiomyopathy EF 20-25% COPD on home oxygen Bilateral DVT Chronic atrial fibrillation NEURO: -Avoid opiates due to ileus RESP: -Currently on 5L NC -DuoNeb every 4 hours scheduled and as needed - Solu-Medrol continue to taper as tolerated -Empiric Azactam for COPD exacerbation CV: -Hold p.o. Lasix, IV Lasix 40 mg 1 and 40 every 12 -Start Aldactone 25 mg p.o. twice daily -Chest x-ray shows worsening interstitial edema -Currently on Coreg and Cardizem and lisinopril for CHF and A. fib -Continue IV heparin GI: -Dr. Murray following for small bowel obstruction -Keep NPO. NGT intermittent wall suction -Small bowel series showing partial obstruction, contrast is moving through. -Increase IV Reglan to 10 mg every 8 hours : -Monitor renal function closely. Faulkner catheter. IV Lasix as above -Aldactone 25 mg p.o. twice daily ID: -Send sputum culture, urine culture -Empiric Azactam HEME: -Monitor CBC, CMP, coags ENDO: -Electrolyte replacement per ICU protocol PROPH: -Bilateral lower extremity SCDs. IV heparin. IV famotidine LINES: -Utilize peripheral IVs, central line if needed End-stage systolic heart failure and COPD. Small new right upper lobe infiltrate. No surgery planned, SBO resolving. NG tube in place GS ff. Continue antibiotics for lung. Discussed with the patient, nurse Kristin Coyne MD May 17, 2017 17:17
[2017-05-17 19:26] LABS: AUTOMATED NEUTROPHIL # 8.6 TH/MM3 (1.8-7.7); BASOPHIL % 0.1 % (0.0-2.0); HEMATOCRIT 45.9 % (39.0-51.0); LYMPH % 3.7 % (9.0-44.0); LYMPHOCYTE # 0.3 TH/MM3 (1.0-4.8); MEAN CELL VOLUME 88.2 FL (80.0-100.0); MEAN CORPUSCULAR HEMOGLOBIN 30.8 PG (27.0-34.0); MEAN CORPUSCULAR HGB CONC 34.9 % (32.0-36.0); MONO % 3.7 % (0.0-8.0); MONOCYTE # 0.3 TH/MM3 (0-0.9); NEUT % 92.5 % (16.0-70.0); PLATELET COUNT 283 TH/MM3 (150-450); RED BLOOD COUNT 5.21 MIL/MM3 (4.50-5.90); RED CELL DISTRIBUTION WIDTH 17.5 % (11.6-17.2); WHITE BLOOD COUNT 9.3 TH/MM3 (4.0-11.0)
[2017-05-17] MEDS ORDERED: CALCIUM CARBONATE 500 MG CHEWABLE TAB CHEW ONE (21:45)
[2017-05-18] VITALS (14 sets, daily range): BP systolic 115–152; BP diastolic 65–86; PULSE 59–89; RESP 14–20; TEMP 97.4–98.6; O2SAT 90–99
[2017-05-18] MEDS: RESP: ALBUTEROL 2.5 MG/IPRATROPIUM 0.5 MG NEB (SCH) NEB ×5 (00:03→16:58)
[2017-05-18] MEDS: MAGNESIUM HYDROXIDE SUSP 30 ML CUP PO PRN ×5 (00:23→23:22)
[2017-05-18] MEDS: methylPREDNISolone SOD SUCC 125 MG/2 ML VIAL IV PUSH SCH ×5 (00:25→23:25)
[2017-05-18] MEDS: HEPARIN-D5W 25,000 U/250 ML 250 ML IV PRN (03:04)
[2017-05-18] MEDS: METOCLOPRAMIDE HCL 10 MG/2 ML VIAL IV PUSH SCH ×3 (05:07→22:24)
[2017-05-18] MEDS: DILTIAZEM HCL 30 MG TAB PO SCH ×4 (08:30→20:41)
[2017-05-18] MEDS: POTASSIUM CHLORIDE 25 MEQ EFFERVESCENT TAB PO SCH ×2 (08:30→20:41)
[2017-05-18] MEDS: LISINOPRIL 5 MG TAB PO SCH (08:30)
[2017-05-18] MEDS: COLLAGENASE OINT 30 GM TUBE TOPICAL SCH (08:31)
[2017-05-18] MEDS: FUROSEMIDE 40 MG/4 ML VIAL IV PUSH SCH ×2 (08:31→17:21)
[2017-05-18] MEDS: SODIUM CHLORIDE 0.9% FLUSH 10 ML FLUSH IV FLUSH SCH ×2 (08:31→20:37)
[2017-05-18] MEDS: POTASSIUM CHLORIDE 20 MEQ CONTROLLED RELEASE TAB PO SCH (08:31)
[2017-05-18] MEDS: BISACODYL 10 MG SUPP RECTAL SCH (08:31)
[2017-05-18] MEDS: DOCUSATE SODIUM 100 MG CAP PO SCH ×2 (08:31→20:40)
[2017-05-18] MEDS: SPIRONOLACTONE 25 MG TAB PO SCH ×2 (08:31→17:22)
[2017-05-18] MEDS: CARVEDILOL 6.25 MG TAB PO SCH ×2 (08:31→20:41)
[2017-05-18] MEDS: LEVOFLOXACIN 750 MG PREMIX INJ 150 ML IV SCH (11:39)
--- NOTE | 2017-05-18 15:36 | HHI.PR ---
Subjective Remarks In bed nauseated, vomiting black fluid. Refusing refacing NG tube. no BM. Appears in some distress. Denies fever or chills. On 5 L NC Objective Vitals Vital Signs Date Time Temp Pulse Resp B/P (MAP) Pulse Ox O2 Delivery O2 Flow Rate FiO2 05/18/17 12:00 80 05/18/17 12:00 97.6 89 20 129/77 (94) 96 05/18/17 08:14 95 Nasal Cannula 6.00 05/18/17 08:00 97.8 86 20 141/86 (104) 90 05/18/17 08:00 Nasal Cannula 5.00 05/18/17 08:00 74 05/18/17 04:04 65 05/18/17 04:00 98.6 84 18 130/76 (94) 99 05/18/17 00:41 87 05/18/17 00:10 91 Nasal Cannula 5.00 05/18/17 00:00 98.2 59 18 115/76 (89) 96 05/17/17 20:15 Nasal Cannula 5.00 Humidified 05/17/17 20:00 97.8 83 18 120/70 (87) 94 05/17/17 19:59 78 05/17/17 16:00 97.7 74 20 146/90 (108) 91 05/17/17 16:00 110 05/17/17 15:52 91 Nasal Cannula 5.00 I/O 05/17/17 05/17/17 05/17/17 05/18/17 05/18/17 05/18/17 07:00 15:00 23:00 07:00 15:00 23:00 Intake Total 250 ml Output Total 600 ml 1200 ml 125 ml 300 ml Balance -350 ml -1200 ml -125 ml -300 ml IV Total 250 ml Output Urine Total 550 ml 125 ml 300 ml Gastric Drainage Total 600 ml 650 ml # Bowel Movements 0 Result Diagram: 05/17/17 1855 05/15/17 2343 Imaging Last Impressions Abdomen X-Ray 05/18/17 0000 Signed Impressions: Service Date/Time: Thursday, May 18, 2017 16:24 - CONCLUSION: Dilated loops of bowel are noted felt to represent an ileus pattern. Gaetano Plasencia MD Chest X-Ray 05/16/17 0600 Signed Impressions: Service Date/Time: Tuesday, May 16, 2017 04:28 - CONCLUSION: 1. Improved aeration of the left lower lung with resolved infiltrate. 2. New consolidative infiltrate in the medial right upper lobe. Luis Sharp MD Small Bowel X-Ray 05/14/17 0000 Signed Impressions: Service Date/Time: Sunday, May 14, 2017 11:20 - CONCLUSION: 1. Findings consistent with CT examination and suggestive of high grade obstruction in the distal jejunum/proximal ileum. Kwaku Vences MD Abdomen/Pelvis CT 05/13/17 1005 Signed Impressions: Service Date/Time: Saturday, May 13, 2017 11:36 - CONCLUSION: 1. Mid to distal jejunal small bowel ileus with acute transition characteristic of high grade small bowel obstruction. 2. Uncomplicated colonic diverticulosis. 3. Mild ascites. 4. Uncomplicated colonic diverticulosis. Conor Jhon MD Objective Remarks GENERAL: Ill-appearing male in no respiratory distress currently on 5L SKIN: warm/dry. HEAD: Atraumatic. Normocephalic. EYES: No scleral icterus. No injection or drainage. ENT: No nasal bleeding or discharge. Mucous membranes dry NECK: Trachea midline. Supple. JVD+ CARDIOVASCULAR: S1-S2, no m,r. RESPIRATORY: Mild accessory muscle use. Breath sounds equal bilaterally with few fine basilar crackles GASTROINTESTINAL: Abdomen soft, mildly distended. No TTP. No guarding. MUSCULOSKELETAL: Trace bilateral pretibial edema. Bilateral chronic venous stasis changes. Well perfused. NEUROLOGICAL: Awake and alert. Motor grossly within normal limits. Normal speech. A/P Assessment and Plan Acute hypoxemic respiratory failure Acute systolic heart failure exacerbation COPD Small bowel obstruction Hypokalemia Cardiomyopathy EF 20-25% COPD on home oxygen Bilateral DVT Chronic atrial fibrillation NEURO: -Avoid opiates due to ileus RESP: -Currently on 5L NC -DuoNeb every 4 hours scheduled and as needed - Solu-Medrol continue to taper as tolerated -Empiric Azactam for COPD exacerbation CV: -Hold p.o. Lasix, IV Lasix 40 mg 1 and 40 every 12 -Start Aldactone 25 mg p.o. twice daily -Chest x-ray shows worsening interstitial edema -Currently on Coreg and Cardizem and lisinopril for CHF and A. fib -Continue IV heparin GI: -Dr. Murray following for small bowel obstruction -Keep NPO. NGT intermittent wall suction removed 05/18/17, now refusing NG tube patient still with nausea/vomiting -Small bowel series showing partial obstruction, contrast is moving through. -Increase IV Reglan to 10 mg every 8 hours : -Monitor renal function closely. Faulkner catheter. IV Lasix as above -Aldactone 25 mg p.o. twice daily ID: -Send sputum culture, urine culture -Empiric Azactam HEME: -Monitor CBC, CMP, coags ENDO: -Electrolyte replacement per ICU protocol PROPH: -Bilateral lower extremity SCDs. IV heparin. IV famotidine LINES: -Utilize peripheral IVs, central line if needed End-stage systolic heart failure and COPD. Small new right upper lobe infiltrate. No surgery planned, SBO resolving. Refusing NG tube, GS ff. Continue antibiotics for lung. Consult palliative care for goals of care. Discussed with the patient, nurse Kristin Coyne MD May 18, 2017 15:36
--- NOTE | 2017-05-18 16:13 | HHI.PR ---
Subjective Subjective Notes Has vomited multiple times since NG out, according to nurses Objective Vitals/I&O Vital Signs Date Time Temp Pulse Resp B/P (MAP) Pulse Ox O2 Delivery O2 Flow Rate FiO2 05/18/17 15:54 97.8 79 20 130/75 (93) 97 05/18/17 08:14 Nasal Cannula 6.00 05/16/17 07:37 50 Labs Laboratory Tests Test 05/17/17 18:55 05/18/17 07:34 White Blood Count 9.3 Red Blood Count 5.21 Hemoglobin 16.0 Hematocrit 45.9 Mean Corpuscular Volume 88.2 Mean Corpuscular Hemoglobin 30.8 Mean Corpuscular Hemoglobin Concent 34.9 Red Cell Distribution Width 17.5 Platelet Count 283 Mean Platelet Volume 8.0 Neutrophils (%) (Auto) 92.5 Lymphocytes (%) (Auto) 3.7 Monocytes (%) (Auto) 3.7 Eosinophils (%) (Auto) 0.0 Basophils (%) (Auto) 0.1 Neutrophils # (Auto) 8.6 Lymphocytes # (Auto) 0.3 Monocytes # (Auto) 0.3 Eosinophils # (Auto) 0.0 Basophils # (Auto) 0.0 CBC Comment DIFF FINAL Differential Comment Activated Partial Thromboplast Time 49.9 52.4 Radiology Last Impressions Chest X-Ray 05/16/17 0600 Signed Impressions: Service Date/Time: Tuesday, May 16, 2017 04:28 - CONCLUSION: 1. Improved aeration of the left lower lung with resolved infiltrate. 2. New consolidative infiltrate in the medial right upper lobe. Luis Sharp MD Abdomen X-Ray 05/16/17 0600 Signed Impressions: Service Date/Time: Tuesday, May 16, 2017 04:16 - CONCLUSION: Persistent dilated loops of small bowel with residual water-soluble contrast into the lumen from small bowel series 3 days ago. Luis Sharp MD Small Bowel X-Ray 05/14/17 0000 Signed Impressions: Service Date/Time: Sunday, May 14, 2017 11:20 - CONCLUSION: 1. Findings consistent with CT examination and suggestive of high grade obstruction in the distal jejunum/proximal ileum. Kwaku Vences MD Abdomen/Pelvis CT 05/13/17 1005 Signed Impressions: Service Date/Time: Saturday, May 13, 2017 11:36 - CONCLUSION: 1. Mid to distal jejunal small bowel ileus with acute transition characteristic of high grade small bowel obstruction. 2. Uncomplicated colonic diverticulosis. 3. Mild ascites. 4. Uncomplicated colonic diverticulosis. Conor John MD Last Impressions Abdomen X-Ray 05/15/17 1400 Signed Impressions: Service Date/Time: May 13:33 - CONCLUSION: Distended loops of small bowel throughout the abdomen. NG tube within the stomach. Amari Thomas MD Chest X-Ray 05/15/17 0000 Signed Impressions: Service Date/Time: May 08:58 - CONCLUSION: Normal examination. NG tube in good position. Amari Thomas MD Small Bowel X-Ray 05/14/17 0000 Signed Impressions: Service Date/Time: Sunday, May 14, 2017 11:20 - CONCLUSION: 1. Findings consistent with CT examination and suggestive of high grade obstruction in the distal jejunum/proximal ileum. Kwaku Vences MD Abdomen/Pelvis CT 05/13/17 1005 Signed Impressions: Service Date/Time: Saturday, May 13, 2017 11:36 - CONCLUSION: 1. Mid to distal jejunal small bowel ileus with acute transition characteristic of high grade small bowel obstruction. 2. Uncomplicated colonic diverticulosis. 3. Mild ascites. 4. Uncomplicated colonic diverticulosis. Conor John MD Abdomen: Non-tender, Other (Moderately distended) A/P Problem List: (1) Ileus ICD Codes: K56.7 - Ileus, unspecified Status: Acute (2) History of CHF (congestive heart failure) ICD Codes: Z86.79 - Personal history of other diseases of the circulatory system Status: Acute (3) DVT (deep venous thrombosis) ICD Codes: I82.409 - Acute embolism and thrombosis of unspecified deep veins of unspecified lower extremity Status: Acute (4) Atrial fibrillation ICD Codes: I48.91 - Unspecified atrial fibrillation Status: Chronic (5) History of DVT (deep vein thrombosis) ICD Codes: Z86.718 - Personal history of other venous thrombosis and embolism Status: Acute (6) group home (current) use of anticoagulants ICD Codes: Z79.01 - lens mounter (current) use of anticoagulants Status: Acute Assessment and Plan A/P Problem List: (1) Ileus ICD Codes: K56.7 - Ileus, unspecified Status: Acute (2) History of CHF (congestive heart failure) ICD Codes: Z86.79 - Personal history of other diseases of the circulatory system Status: Acute (3) DVT (deep venous thrombosis) ICD Codes: I82.409 - Acute embolism and thrombosis of unspecified deep veins of unspecified lower extremity Status: Acute (4) Atrial fibrillation ICD Codes: I48.91 - Unspecified atrial fibrillation Status: Chronic (5) History of DVT (deep vein thrombosis) ICD Codes: Z86.718 - Personal history of other venous thrombosis and embolism Status: Acute (6) lens mounter (current) use of anticoagulants ICD Codes: Z79.01 - lens mounter (current) use of anticoagulants Status: Acute Assessment and Plan 72 old gentleman who was admitted to the hospital for small bowel obstruction nausea vomiting urinary tract infection he is presently on a heparin drip Multiple episodes emesis; he is refusing NG replacement in spite of nursing and my explanation of problem with aspiration and discomfort. He will likely need laparoscopy/laparotomy per Dr. Murray if his problems persist. Mitch Sy MD May 18, 2017 16:13
--- NOTE | 2017-05-18 16:51 | RADRPT ---
EXAM DATE/TIME: 05/18/2017 16:24 [facility] COMPARISON: ABDOMEN KUB ONLY, May 16, 2017, 4:16. INDICATIONS : Vomiting. Persistent vomiting since NG removed. MEDICAL HISTORY : Hypertension. Chronic obstructive pulmonary disease. Cardiovascular disease. SURGICAL HISTORY : None. ENCOUNTER: Subsequent ACUITY: 1 day PAIN SCORE: 4/10 LOCATION: Abdomen. FINDINGS: There are dilated loops of small intestine, with associated air-fluid levels. Contrast is seen in the right colon. This would be consistent with an ileus pattern. CONCLUSION: Dilated loops of bowel are noted felt to represent an ileus pattern. Gaetano Plasencia MD on May 18, 2017 at 16:48 Board Certified Radiologist. This report was verified electronically.
[2017-05-18] MEDS: RESP: ALBUTEROL 2.5 MG/IPRATROPIUM 0.5 MG NEB (PRN) NEB (20:03)
[2017-05-18] MEDS: ONDANSETRON HCL 4 MG/2 ML VIAL IV PUSH PRN (20:37)
[2017-05-19] VITALS (11 sets, daily range): BP systolic 106–148; BP diastolic 66–73; PULSE 63–95; RESP 14–20; TEMP 98.1–98.8; O2SAT 92–97
[2017-05-19] MEDS: HEPARIN-D5W 25,000 U/250 ML 250 ML IV PRN (01:16)
[2017-05-19] MEDS: ONDANSETRON HCL 4 MG/2 ML VIAL IV PUSH PRN (02:47)
[2017-05-19] MEDS: METOCLOPRAMIDE HCL 10 MG/2 ML VIAL IV PUSH SCH ×3 (05:17→22:06)
[2017-05-19] MEDS: methylPREDNISolone SOD SUCC 125 MG/2 ML VIAL IV PUSH SCH ×4 (05:18→23:55)
[2017-05-19] MEDS: MAGNESIUM HYDROXIDE SUSP 30 ML CUP PO PRN (05:22)
[2017-05-19 07:54] LABS: HEMATOCRIT 47.5 % (39.0-51.0); HEMOGLOBIN 16.1 GM/DL (13.0-17.0); MEAN CELL VOLUME 87.7 FL (80.0-100.0); MEAN CORPUSCULAR HEMOGLOBIN 29.7 PG (27.0-34.0); MEAN CORPUSCULAR HGB CONC 33.8 % (32.0-36.0); MEAN PLATELET VOLUME 8.4 FL (7.0-11.0); PLATELET COUNT 267 TH/MM3 (150-450); RED BLOOD COUNT 5.41 MIL/MM3 (4.50-5.90); RED CELL DISTRIBUTION WIDTH 17.2 % (11.6-17.2); WHITE BLOOD COUNT 7.9 TH/MM3 (4.0-11.0)
[2017-05-19 08:43] LABS: BICARBONATE GREATER THAN 45.0 MEQ/L (21.0-32.0); BLOOD UREA NITROGEN 39 MG/DL (7-18); CHLORIDE 78 MEQ/L (98-107); CREATININE 1.07 MG/DL (0.60-1.30); GLOMERULAR FILTRATION RATE 82 ML/MIN (>89); GLUCOSE,RANDOM 161 MG/DL (74-106); SODIUM (NA) 139 MEQ/L (136-145)
--- NOTE | 2017-05-19 08:44 | HHI.PR ---
Subjective Remarks With vomiting and with nausea. No much abdominal pain. Is also feeling short of breath and feels lightheaded sometimes. Patient with nausea, says he doesn't want NG tube and will like to have surgery. Dr Terri ugalde plan for surgical intervention at 9 PM Keep NPO Stop heparin at 12 PM today, discussed with the patient and nurse Objective Vitals Vital Signs Date Time Temp Pulse Resp B/P (MAP) Pulse Ox O2 Delivery O2 Flow Rate FiO2 05/19/17 04:23 98.3 73 14 121/66 (84) 93 05/19/17 04:04 95 05/19/17 00:17 73 05/18/17 23:30 97.4 74 14 126/65 (85) 98 05/18/17 20:05 96 Nasal Cannula 5.00 05/18/17 19:49 72 05/18/17 19:45 Nasal Cannula 5.00 Humidified 05/18/17 19:29 98.0 67 16 152/70 (97) 95 05/18/17 16:00 64 05/18/17 15:54 97.8 79 20 130/75 (93) 97 05/18/17 12:00 80 05/18/17 12:00 97.6 89 20 129/77 (94) 96 I/O 05/18/17 05/18/17 05/18/17 05/19/17 05/19/17 05/19/17 07:00 15:00 23:00 07:00 15:00 23:00 Intake Total 250 ml Output Total 125 ml 900 ml 950 ml Balance -125 ml -900 ml -700 ml IV Total 250 ml Output Urine Total 125 ml 900 ml 325 ml Emesis 625 ml # Bowel Movements 1 Result Diagram: 05/19/17 0633 05/15/17 2343 Imaging Last Impressions Abdomen X-Ray 05/18/17 0000 Signed Impressions: Service Date/Time: Thursday, May 18, 2017 16:24 - CONCLUSION: Dilated loops of bowel are noted felt to represent an ileus pattern. Gaetano Plasencia MD Chest X-Ray 05/16/17 0600 Signed Impressions: Service Date/Time: Tuesday, May 16, 2017 04:28 - CONCLUSION: 1. Improved aeration of the left lower lung with resolved infiltrate. 2. New consolidative infiltrate in the medial right upper lobe. Luis Sharp MD Small Bowel X-Ray 05/14/17 0000 Signed Impressions: Service Date/Time: Sunday, May 14, 2017 11:20 - CONCLUSION: 1. Findings consistent with CT examination and suggestive of high grade obstruction in the distal jejunum/proximal ileum. Kwaku Vences MD Abdomen/Pelvis CT 05/13/17 1005 Signed Impressions: Service Date/Time: Saturday, May 13, 2017 11:36 - CONCLUSION: 1. Mid to distal jejunal small bowel ileus with acute transition characteristic of high grade small bowel obstruction. 2. Uncomplicated colonic diverticulosis. 3. Mild ascites. 4. Uncomplicated colonic diverticulosis. Conor John MD Objective Remarks GENERAL: Ill-appearing male in no respiratory distress currently on 5L SKIN: warm/dry. HEAD: Atraumatic. Normocephalic. EYES: No scleral icterus. No injection or drainage. ENT: No nasal bleeding or discharge. Mucous membranes dry NECK: Trachea midline. Supple. JVD+ CARDIOVASCULAR: S1-S2, no m,r. RESPIRATORY: Mild accessory muscle use. Breath sounds equal bilaterally with few fine basilar crackles GASTROINTESTINAL: Abdomen soft, mildly distended. No TTP. No guarding. MUSCULOSKELETAL: Trace bilateral pretibial edema. Bilateral chronic venous stasis changes. Well perfused. NEUROLOGICAL: Awake and alert. Motor grossly within normal limits. Normal speech. A/P Assessment and Plan Acute hypoxemic respiratory failure Acute systolic heart failure exacerbation COPD Small bowel obstruction Hypokalemia Cardiomyopathy EF 20-25% COPD on home oxygen Bilateral DVT Chronic atrial fibrillation NEURO: -Avoid opiates due to ileus RESP: -Currently on 5L NC -DuoNeb every 4 hours scheduled and as needed - Solu-Medrol continue to taper as tolerated -Empiric Azactam for COPD exacerbation CV: -Hold p.o. Lasix, IV Lasix 40 mg 1 and 40 every 12 -Start Aldactone 25 mg p.o. twice daily -Chest x-ray shows worsening interstitial edema -Currently on Coreg and Cardizem and lisinopril for CHF and A. fib -Continue IV heparin GI: -Dr. Murray following for small bowel obstruction -Keep NPO. NGT intermittent wall suction removed 05/18/17, now refusing NG tube patient still with nausea/vomiting -Small bowel series showing partial obstruction, contrast is moving through. -Increase IV Reglan to 10 mg every 8 hours : -Monitor renal function closely. Faulkner catheter. IV Lasix as above -Aldactone 25 mg p.o. twice daily ID: -Send sputum culture, urine culture -Empiric Azactam HEME: -Monitor CBC, CMP, coags ENDO: -Electrolyte replacement PROPH: -Bilateral lower extremity SCDs. IV heparin. IV famotidine LINES: -Utilize peripheral IVs, central line if needed End-stage systolic heart failure and COPD. Small new right upper lobe infiltrate. No surgery planned, SBO resolving. Refusing NG tube, GS ff. Continue antibiotics for lung. Consult palliative care for goals of care, patient wants aggressive measures Patient with nausea, says he doesn't want NG tube and will like to have surgery Dr Murray ff plan for Surgical intervention at 9 PM Keep NPO Stop heparin at 12 PM today as plan for surgery Discussed with the patient, nurse, Dr Murray surgery Kristin Coyne MD May 19, 2017 08:44
--- NOTE | 2017-05-19 08:50 | HHI.PR ---
cc: Raleigh Murray MD Subjective Subjective Notes DAILY PROGRESS NOTE FOR SURGICAL ATTENDING, DR. RALEIGH MURRAY I think I might have scar tissue in my abdomen from previous surgery Patient does not want another NG tube Vomiting today Objective Vitals/I&O Vital Signs Date Time Temp Pulse Resp B/P (MAP) Pulse Ox O2 Delivery O2 Flow Rate FiO2 05/19/17 04:23 98.3 73 14 121/66 (84) 93 05/18/17 20:05 Nasal Cannula 5.00 05/16/17 07:37 50 Labs Laboratory Tests Test 05/19/17 06:33 White Blood Count 7.9 Red Blood Count 5.41 Hemoglobin 16.1 Hematocrit 47.5 Mean Corpuscular Volume 87.7 Mean Corpuscular Hemoglobin 29.7 Mean Corpuscular Hemoglobin Concent 33.8 Red Cell Distribution Width 17.2 Platelet Count 267 Mean Platelet Volume 8.4 Activated Partial Thromboplast Time 53.3 Radiology Last Impressions Chest X-Ray 05/16/17 0600 Signed Impressions: Service Date/Time: Tuesday, May 16, 2017 04:28 - CONCLUSION: 1. Improved aeration of the left lower lung with resolved infiltrate. 2. New consolidative infiltrate in the medial right upper lobe. Luis Sharp MD Abdomen X-Ray 05/16/17 0600 Signed Impressions: Service Date/Time: Tuesday, May 16, 2017 04:16 - CONCLUSION: Persistent dilated loops of small bowel with residual water-soluble contrast into the lumen from small bowel series 3 days ago. Luis Sharp MD Small Bowel X-Ray 05/14/17 0000 Signed Impressions: Service Date/Time: Sunday, May 14, 2017 11:20 - CONCLUSION: 1. Findings consistent with CT examination and suggestive of high grade obstruction in the distal jejunum/proximal ileum. Kwaku Vences MD Abdomen/Pelvis CT 05/13/17 1005 Signed Impressions: Service Date/Time: Saturday, May 13, 2017 11:36 - CONCLUSION: 1. Mid to distal jejunal small bowel ileus with acute transition characteristic of high grade small bowel obstruction. 2. Uncomplicated colonic diverticulosis. 3. Mild ascites. 4. Uncomplicated colonic diverticulosis. Conor John MD Cardiovascular: Regular Lungs: Upper airway course sound Abdomen: Non-distended, Non-tender Extremities: Perfused, Other (bilateral lower extremity DVT) Narrative Exam Not much recorded from NG tube only about 400 cc A/P Problem List: (1) Small bowel obstruction ICD Codes: K56.609 - Unspecified intestinal obstruction, unspecified as to partial versus complete obstruction Status: Acute (2) Bilious vomiting with nausea ICD Codes: R11.14 - Bilious vomiting Status: Acute (3) History of CHF (congestive heart failure) ICD Codes: Z86.79 - Personal history of other diseases of the circulatory system Status: Acute (4) DVT (deep venous thrombosis) ICD Codes: I82.409 - Acute embolism and thrombosis of unspecified deep veins of unspecified lower extremity Status: Acute (5) Atrial fibrillation ICD Codes: I48.91 - Unspecified atrial fibrillation Status: Chronic (6) History of DVT (deep vein thrombosis) ICD Codes: Z86.718 - Personal history of other venous thrombosis and embolism Status: Acute (7) intermediate (current) use of anticoagulants ICD Codes: Z79.01 - intermediate (current) use of anticoagulants Status: Acute Assessment and Plan 72 old gentleman who was admitted to the hospital for small bowel obstruction nausea vomiting urinary tract infection he is presently on a heparin drip The patient is vomiting again this morning He had a bowel movement yesterday Will stop heparin and plan diagnostic laparoscopy today This was explained to the patient he appeared to understand Discussed with nursing staff Had to be postponed because of the back wall of cases in the operating room multiple traumas multiple add-on cases so this case was delayed until the morning Attending Statement NOTE FOR SURGICAL ATTENDING, DR. RALEIGH MURRAY I attest that I had a [id number] encounter with the patient on the same day, and personally performed and documented my assessment and findings in the medical record. The following services were provided during this hospital visit: Chart data review, vital sign assessments/reviewing monitor data Review of consultations notes if present. Medication orders/review and/or management Ordering and/or reviewing lab tests Ordering and/or interpreting/reviewing x-rays and/or diagnostic studies Care of the patient and discussion of the patient with the care team Documentation time To help prompt me to consider important information that might be impacting today's encounter and assessment, information from prior notes written by myself or my colleagues may have been "brought forward/copy and pasted" into today's note. Raleigh Murray MD May 19, 2017 08:50
[2017-05-19] MEDS: DILTIAZEM HCL 30 MG TAB PO SCH ×3 (09:00→21:00)
[2017-05-19] MEDS: CARVEDILOL 6.25 MG TAB PO SCH ×2 (09:00→21:00)
[2017-05-19] MEDS: DOCUSATE SODIUM 100 MG CAP PO SCH ×3 (09:00→22:08)
[2017-05-19] MEDS: POTASSIUM CHLORIDE 25 MEQ EFFERVESCENT TAB PO SCH ×2 (09:00→21:00)
[2017-05-19] MEDS: POTASSIUM CHLORIDE 20 MEQ CONTROLLED RELEASE TAB PO SCH (09:00)
[2017-05-19] MEDS: SPIRONOLACTONE 25 MG TAB PO SCH (09:00)
[2017-05-19] MEDS: BISACODYL 10 MG SUPP RECTAL SCH (09:00)
[2017-05-19] MEDS: COLLAGENASE OINT 30 GM TUBE TOPICAL SCH (09:00)
[2017-05-19] MEDS: LISINOPRIL 5 MG TAB PO SCH (09:00)
[2017-05-19] MEDS: LEVOFLOXACIN 750 MG PREMIX INJ 150 ML IV SCH (10:39)
[2017-05-19] MEDS: FUROSEMIDE 40 MG/4 ML VIAL IV PUSH SCH ×2 (10:52→17:41)
[2017-05-19] MEDS: SODIUM CHLORIDE 0.9% FLUSH 10 ML FLUSH IV FLUSH SCH (22:07)
[2017-05-20] VITALS (14 sets, daily range): BP systolic 103–153; BP diastolic 57–79; PULSE 60–129; RESP 12–20; TEMP 97.2–98.2; O2SAT 90–100
[2017-05-20] MEDS ORDERED: POTASSIUM CHLOR 20 MEQ PREMIX 100 ML IV SCH (04:15)
[2017-05-20 06:04] LABS: AUTOMATED NEUTROPHIL # 10.5 TH/MM3 (1.8-7.7); EOSINOPHIL % 0.1 % (0.0-4.0); HEMATOCRIT 48.8 % (39.0-51.0); HEMOGLOBIN 16.3 GM/DL (13.0-17.0); LYMPH % 1.6 % (9.0-44.0); LYMPHOCYTE # 0.2 TH/MM3 (1.0-4.8); MEAN CORPUSCULAR HEMOGLOBIN 29.3 PG (27.0-34.0); MEAN CORPUSCULAR HGB CONC 33.3 % (32.0-36.0); MEAN PLATELET VOLUME 8.9 FL (7.0-11.0); MONO % 5.1 % (0.0-8.0); MONOCYTE # 0.6 TH/MM3 (0-0.9); NEUT % 93.2 % (16.0-70.0); PLATELET COUNT 211 TH/MM3 (150-450); RED BLOOD COUNT 5.55 MIL/MM3 (4.50-5.90); RED CELL DISTRIBUTION WIDTH 17.1 % (11.6-17.2); WHITE BLOOD COUNT 11.3 TH/MM3 (4.0-11.0)
[2017-05-20] MEDS: METOCLOPRAMIDE HCL 10 MG/2 ML VIAL IV PUSH SCH ×5 (06:15→21:35)
[2017-05-20] MEDS: methylPREDNISolone SOD SUCC 125 MG/2 ML VIAL IV PUSH SCH ×3 (06:15→18:00)
[2017-05-20 06:26] LABS: ALBUMIN 2.8 GM/DL (3.4-5.0); ALKALINE PHOSPHATASE 53 U/L (45-117); ALT (GPT) 52 U/L (12-78); AST (GOT) 69 U/L (15-37); BLOOD UREA NITROGEN 51 MG/DL (7-18); CALCIUM 9.2 MG/DL (8.5-10.1); CHLORIDE 82 MEQ/L (98-107); CREATININE 1.68 MG/DL (0.60-1.30); GLOMERULAR FILTRATION RATE 49 ML/MIN (>89); GLUCOSE,RANDOM 225 MG/DL (74-106); SODIUM (NA) 141 MEQ/L (136-145); TOTAL BILIRUBIN ADULT 1.5 MG/DL (0.2-1.0); TOTAL PROTEIN 6.8 GM/DL (6.4-8.2)
[2017-05-20 06:32] LABS: BICARBONATE GREATER THAN 45.0 MEQ/L (21.0-32.0)
[2017-05-20] MEDS: POTASSIUM CHLOR 20 MEQ PREMIX 100 ML IV SCH ×2 (07:07→08:58)
--- NOTE | 2017-05-20 08:04 | HHI.PR ---
Subjective Remarks Patient with more shortness of breath and cough. Order ABG, reviewed. Patient also with nausea and vomiting bile. He is deteriorating. Did not have a bowel movement. Does not have fever or chills. Feels short of breath. He has no chest pain. No cough. Discussed with surgical team, patient cannot be placed on BiPAP as she is nausea vomiting and high risk of aspiration. Dental Professional was consulted for evaluation possible intubation. Objective Vitals Vital Signs Date Time Temp Pulse Resp B/P (MAP) Pulse Ox O2 Delivery O2 Flow Rate FiO2 05/20/17 04:23 97.6 71 20 103/57 (72) 92 05/20/17 03:59 129 05/19/17 23:55 74 05/19/17 23:46 98.1 81 18 148/72 (97) 93 05/19/17 20:49 95 Nasal Cannula 5.00 05/19/17 20:38 84 05/19/17 20:00 Nasal Cannula 5.00 Humidified 05/19/17 19:47 98.8 83 18 124/68 (86) 94 05/19/17 16:00 98.8 74 20 124/73 (90) 93 05/19/17 16:00 88 05/19/17 12:00 98.3 87 20 106/68 (81) 97 I/O 05/19/17 05/19/17 05/19/17 05/20/17 05/20/17 05/20/17 07:00 15:00 23:00 07:00 15:00 23:00 Intake Total 250 ml 360 ml Output Total 950 ml 450 ml Balance -700 ml -90 ml Intake Oral 360 ml IV Total 250 ml Output Urine Total 325 ml 450 ml Emesis 625 ml Result Diagram: 05/20/17 0535 05/20/17 0535 Imaging Last Impressions Chest X-Ray 05/20/17 0000 Signed Impressions: Service Date/Time: Saturday, May 20, 2017 10:59 - CONCLUSION: 1. Right central line, ET tube and NG tube appear to be in good position. 2. No pneumothorax. 3. Focal infiltrate left lung base. Jeff Foster MD Abdomen X-Ray 05/20/17 0000 Signed Impressions: Service Date/Time: Saturday, May 20, 2017 13:07 - CONCLUSION: 1. NG tube in the stomach. 2. Improving bowel gas pattern compared to the prior study. Jeff Foster MD Small Bowel X-Ray 05/14/17 0000 Signed Impressions: Service Date/Time: Sunday, May 14, 2017 11:20 - CONCLUSION: 1. Findings consistent with CT examination and suggestive of high grade obstruction in the distal jejunum/proximal ileum. Kwaku Vences MD Abdomen/Pelvis CT 05/13/17 1005 Signed Impressions: Service Date/Time: Saturday, May 13, 2017 11:36 - CONCLUSION: 1. Mid to distal jejunal small bowel ileus with acute transition characteristic of high grade small bowel obstruction. 2. Uncomplicated colonic diverticulosis. 3. Mild ascites. 4. Uncomplicated colonic diverticulosis. Conor John MD Objective Remarks GENERAL: Ill-appearing male in no respiratory distress currently on 5L SKIN: warm/dry. HEAD: Atraumatic. Normocephalic. EYES: No scleral icterus. No injection or drainage. ENT: No nasal bleeding or discharge. Mucous membranes dry NECK: Trachea midline. Supple. JVD+ CARDIOVASCULAR: S1-S2, no m,r. RESPIRATORY: Mild accessory muscle use. Breath sounds equal bilaterally with few fine basilar crackles GASTROINTESTINAL: Abdomen soft, mildly distended. No TTP. No guarding. MUSCULOSKELETAL: Trace bilateral pretibial edema. Bilateral chronic venous stasis changes. Well perfused. NEUROLOGICAL: Awake and alert. Motor grossly within normal limits. Normal speech. A/P Assessment and Plan Acute hypoxemic respiratory failure requiring intubation again today 05/20/17 Acute systolic heart failure exacerbation COPD Small bowel obstruction Hypokalemia Cardiomyopathy EF 20-25% COPD on home oxygen Bilateral DVT Chronic atrial fibrillation NEURO: -Avoid opiates due to ileus RESP: -Currently on 5L NC and hypoxic, ABG reviewed. Transfer patient to ICU. The patient cannot be placed on BiPAP as he is at high risk of aspiration. Dental Professional was consulted, intubated patient plan for surgery in the afternoon today -DuoNeb every 4 hours scheduled and as needed - Solu-Medrol continue to taper as tolerated -Empiric Azactam for COPD exacerbation CV: -Hold p.o. Lasix, IV Lasix 40 mg 1 and 40 every 12 -Start Aldactone 25 mg p.o. twice daily -Chest x-ray shows worsening interstitial edema -Currently on Coreg and Cardizem and lisinopril for CHF and A. fib -Continue IV heparin GI: -Dr. Murray following for small bowel obstruction -Keep NPO. NGT intermittent wall suction removed 05/18/17, now refusing NG tube patient still with nausea/vomiting -Small bowel series showing partial obstruction, contrast is moving through. -Increase IV Reglan to 10 mg every 8 hours : -Monitor renal function closely. Faulkner catheter. IV Lasix as above -Aldactone 25 mg p.o. twice daily ID: -Send sputum culture, urine culture -Empiric Azactam HEME: -Monitor CBC, CMP, coags ENDO: -Electrolyte replacement PROPH: -Bilateral lower extremity SCDs. IV heparin. IV famotidine LINES: -Utilize peripheral IVs, central line if needed End-stage systolic heart failure and COPD. Small new right upper lobe infiltrate. No surgery planned, SBO resolving. Refusing NG tube, GS ff. Continue antibiotics for lung. Consult palliative care for goals of care, patient wants aggressive measures Patient with nausea, says he doesn't want NG tube and will like to have surgery Dr Murray ff plan for Surgical intervention Keep NPO Hold heparin as plan for surgery Patient is hypoxic, cannot be placed on BiPAP as high risk of aspiration. Dental Professional was consulted for evaluation, the patient is intubated and plan for surgery later today Discussed with the patient, nurse, surgical team Critical time more than 40 minutes Kristin Coyne MD May 20, 2017 08:04
[2017-05-20] MEDS: SPIRONOLACTONE 25 MG TAB PO SCH (09:00)
[2017-05-20] MEDS: POTASSIUM CHLORIDE 25 MEQ EFFERVESCENT TAB PO SCH (09:00)
[2017-05-20] MEDS: POTASSIUM CHLORIDE 20 MEQ CONTROLLED RELEASE TAB PO SCH (09:00)
[2017-05-20] MEDS: DOCUSATE SODIUM 100 MG CAP PO SCH ×2 (09:00→20:18)
[2017-05-20] MEDS: CARVEDILOL 6.25 MG TAB PO SCH (09:00)
[2017-05-20] MEDS: LISINOPRIL 5 MG TAB PO SCH (09:00)
[2017-05-20] MEDS: BISACODYL 10 MG SUPP RECTAL SCH (09:00)
[2017-05-20] MEDS: DILTIAZEM HCL 30 MG TAB PO SCH (09:00)
[2017-05-20] MEDS: FUROSEMIDE 40 MG/4 ML VIAL IV PUSH SCH (09:15)
[2017-05-20] MEDS: SODIUM CHLORIDE 0.9% FLUSH 10 ML FLUSH IV FLUSH SCH ×2 (09:24→20:17)
--- NOTE | 2017-05-20 09:34 | HHI.CCPN ---
Subjective Remarks/Hospital Course Patient is a 72-year-old -[place] male with past medical history significant for COPD on home oxygen, chronic systolic heart failure EF 20-25%, chronic atrial fibrillation, bilateral lower extremity DVT on Coumadin, who was admitted to the hospitalist service on 05/13/2017 with history of nausea, vomiting with no diarrhea, not passing gas or stools for last 2 days. ER workup which included a CT of the abdomen pelvis showed small bowel obstruction which was high-grade. General surgery was consulted and patient was admitted to the floor. He was kept n.p.o. and NGT was placed. He was placed on a heparin drip for subtherapeutic INR. Today Halicat was called as patient became acutely hypoxemic. His O2 saturation went down to low 70s and was placed on 100% nonrebreather. Stat chest x-ray showed increasing interstitial edema and pulmonary vascular congestion indicating a CHF exacerbation. I evaluated the patient in the ICU. He is in a moderate respiratory distress currently on 100% nonrebreather. Physical exam revealed elevated JVD and bibasilar crackles. It appears that patient has acute systolic heart failure exacerbation. I will give IV Lasix 40 mg 1 now and scheduled 40 every 12. If his condition does not improve with the above measures patient may need endotracheal intubation, he is not a candidate for BiPAP due to significant small bowel obstruction and risk of aspiration. SB series is pending at this time, and Dr. Murray thinks it is ileus. Start IV Reglan, keep K>4 SUBJ 05/15/17: Remains on partial nonrebreather desaturates when placed on Ventimask 50%. He claims that he is breathing more comfortably. With IV Lasix made 1 L urine overnight. Started on Reglan yesterday ileus persist. Increase Reglan to 10 mg every 8. Small bowel series showing high grade obstruction. 05/16: Supplemental O2 down to 5 liters. Bowel is opening up, no surgery planned. Transfer. 05/20: Patient has developed what appears to be complete colon obstruction with severe dilation extending into small bowel. Now dehydrated with prerenal azotemia and electrolyte imbalance. We will bring him to the ICU, intubate, hydrate, place NG tube, correct electrolytes and generally maximize his physiological status as best as can be accomplished for a patient with COPD and baseline EF 25%. He requires laparotomy and colon resection for probable ischemic bowel. Patient agrees to surgery and wants continued aggressive care. I intubated patient after arrival to ICU and placed central line. Aggressive resuscitation started. Discussed with general surgery. Also has severe hypokalemia, potassium is 2.3 Objective Vital Signs Date Time Temp Pulse Resp B/P (MAP) Pulse Ox O2 Delivery O2 Flow Rate FiO2 05/20/17 08:00 97.2 74 19 111/76 (88) 96 05/19/17 20:49 Nasal Cannula 5.00 05/16/17 07:37 50 Result Diagram: 05/20/17 0535 05/20/17 0535 Other Results Laboratory Tests Test 05/20/17 07:32 Blood Gas Puncture Site RT RADIAL Blood Gas Patient Temperature 98.6 Blood Gas HCO3 60 mmol/L (22-26) Blood Gas Base Excess mmol/L (-2-2) Blood Gas Oxygen Saturation 85 % (90-100) Arterial Blood pH 7.49 (7.380-7.420) Arterial Blood Partial Pressure CO2 79 mmHg (38-42) Arterial Blood Partial Pressure O2 54 mmHg (61-120) Arterial Blood Oxygen Content 18.9 Vol % (12.0-20.0) Arterial Blood Carboxyhemoglobin 1.5 % (0-4) Arterial Blood Methemoglobin 0.9 % (0-2) Blood Gas Hemoglobin 15.9 G/DL (12.0-16.0) Oxygen Delivery Device NASAL CANNULA Blood Gas Liter Flow 5 L/M Imaging Chest x-ray shows bilateral pulmonary vascular congestion and atelectasis Objective Remarks GENERAL: Ill-appearing male in moderate respiratory distress currently on 100% NRB. SKIN: warm/dry. HEAD: Atraumatic. Normocephalic. EYES: No scleral icterus. No injection or drainage. ENT: No nasal bleeding or discharge. Mucous membranes dry NECK: Trachea midline. Supple. No JVD CARDIOVASCULAR: S1-S2, no m,r. Irregular RESPIRATORY: Mild accessory muscle use. Breath sounds equal bilaterally with few fine crackles GASTROINTESTINAL: Abdomen soft but distended. Generalized tenderness, high pitched bowel sounds+ MUSCULOSKELETAL: No edema. Bilateral chronic venous stasis changes. Well perfused, dry. NEUROLOGICAL: Awake and alert, somnolent and lethargic. Motor function grossly within normal limits. A/P Assessment and Plan ASSESSMENT: Acute hypoxemic respiratory failure Colonic ileus, small bowel obstruction Severe hypokalemia Chronic systolic heart failure exacerbation COPD Cardiomyopathy EF 20-25% COPD on home oxygen Bilateral DVT Chronic atrial fibrillation PLAN: NEURO: -Post intubation propofol for sedation and vent synchrony -Avoid opiates due to ileus RESP: -Currently on 100% nonrebreather, but in respiratory distress -Intubated and placed on mechanical ventilation for hypoxemia and to facilitate resuscitation -Vent bundle. DuoNeb every 4 hours scheduled and as needed -Solu-Medrol 60 every 6 hours, hold prednisone -Empiric Levaquin for COPD exacerbation CV: -Hold Lasix. Hold Aldactone -Levophed to keep map above 65 -Chest x-ray previously showed worsening interstitial edema -Currently on Coreg and Cardizem and lisinopril for CHF and A. fib-hold due to hypotension and dehydration -IV heparin on hold for anticipated surgery GI: -Dr. Murray following for small bowel obstruction, colonic ileus. OR planned for today -Keep NPO. NGT intermittent wall suction -Discussed with Dr. Murray who is following. -Flagyl added for colon : -Monitor renal function closely. Faulkner catheter. -Continue aggressive resuscitation -Hold IV Lasix and Aldactone ID: -Continue empiric Levaquin and Flagyl HEME: -Monitor CBC, CMP, coags -Hold IV heparin ENDO: -Electrolyte replacement per ICU protocol PROPH: -Bilateral lower extremity SCDs. IV heparin-currently on hold. IV famotidine LINES: -Utilize peripheral IVs, placed right subclavian central line Overall impression: Massive colon distention, probable ischemia, and proximal small bowel obstruction/dilation. Large fluid and electrolyte losses. Chronic systolic heart failure and non-exacerbated COPD. Small new right upper lobe infiltrate. Critically ill and requiring emergency bowel resection. Risk is markedly elevated due to comorbid conditions. Intubated and central line placed. Critically ill Critical care 45 mins aside from procedures. Patient had a bowel movement after intubation. Discussed with Dr. Murray. Check KUB. Hold off on surgical exploration at this time Kalin Payne MD May 20, 2017 09:34 Ирина Currie MD May 20, 2017 11:04
[2017-05-20] MEDS ORDERED: ETOMIDATE 40 MG/20 ML VIAL ONE (09:40)
[2017-05-20] MEDS ORDERED: MIDAZOLAM HCL 5 MG/ML VIAL (1 ML) ONE (09:40)
[2017-05-20] MEDS ORDERED: ROCURONIUM INJ 50 MG/5 ML VIAL ONE ×2 (09:42→10:19)
[2017-05-20] MEDS ORDERED: PROPOFOL 500 MG/50 ML INJ 50 ML ONE (09:49)
[2017-05-20] MEDS ORDERED: NOREPINEPHRINE-DEXTROSE DRIP 250 ML IV ONE (09:57)
[2017-05-20] MEDS ORDERED: SODIUM BICARBONATE 8.4% INJ 50 MEQ/50 ML SYR ONE (10:32)
--- NOTE | 2017-05-20 10:45 | MB ---
cc: Tania Marin MD DATE OF CONSULT: REASON FOR CONSULTATION: COPD, respiratory failure. Patient with bowel obstruction, being evaluated for surgery. HISTORY OF PRESENT ILLNESS: Mr. Rocha is a 72-year-old male with known history of severe COPD, admitted with abdominal pain, nausea, vomiting. Symptomatology is persistent. Evaluation for possible surgical intervention is underway at this time. The patient is on oxygen therapy; however, no acute distress. Denies history of fever or chills. Occasional cough. No expectoration. No hemoptysis. His chest x-ray is with diffuse interstitial change, left basilar atelectatic change, less likely infiltrate. PAST MEDICAL HISTORY: 1. COPD. 2. Chronic respiratory failure, on oxygen therapy 07/10. 3. Congestive heart failure, ejection fraction at 20%. 4. Hypertension. 5. Hyperlipidemia. 6. Chronic atrial fibrillation, on Coumadin therapy. 7. Diabetes mellitus. 8. Chronic stasis ulceration, both lower extremities. 9. Had previous hernia repair and surgery for bowel obstruction in the . MEDICATIONS: Include Coumadin, Coreg, Cardizem, lisinopril, aspirin, potassium, Lasix, prednisone 20 mg daily, oxygen 2 L nasal cannula 07/10, inhaled bronchodilator, the name of which he does not recall. ALLERGIES: PENICILLIN. FAMILY HISTORY: Noncontributory. SYSTEMS REVIEW: Twelve-point review of systems as per HPI. PAST HISTORY: Otherwise negative. PHYSICAL EXAMINATION: VITAL SIGNS: Temperature 98.6, pulse 88, respirations 18, blood pressure 150/84. HEENT: Unremarkable. Eyes without icterus. NECK: Without adenopathy or thyroid enlargement. Trachea central. CHEST: Without dullness to percussion. Few scattered rhonchi, left base. CARDIAC: PMI distant. S1, S2 audible. No murmur, no rub. ABDOMEN: Slight diffuse tenderness. Bowel sounds decreased. EXTREMITIES: Chronic ulceration noted. LABORATORY STUDIES: White count 11.3, hemoglobin 16, hematocrit 48, platelets 211,000. Sodium 141, potassium 2.3, BUN 51, creatinine 1.6. Chest x-ray 05/16 with improving aeration of the left lower lung; questionable infiltrate, right middle lobe. IMPRESSION: 1. Chronic obstructive pulmonary disease of severe degree. 2. Chronic respiratory failure, on oxygen therapy. 3. Question pneumonia. 4. Bowel obstruction. 5. Congestive heart failure, ejection fraction 15%. 6. Hypertension. 7. Hyperlipidemia. 8. Chronic ulceration, lower extremity. PLAN: The patient will be maintained on oxygen therapy, bronchodilator therapy, antibiotic therapy on empiric basis. Chest x-ray will be followed. Plans for intervention for the patient's bowel obstruction are underway. Will follow the patient's course along with you and depending on progress, proceed further. The patient's outlook is poor, given his severe underlying lung disease and multiple medical problems as outlined above. Tania Marin MD WWW/PAO , 10:10 AM , 10:44 AM
[2017-05-20] MEDS: POTASSIUM CHLOR 40 MEQ PREMIX 100 ML IV SCH ×2 (11:15→13:12)
[2017-05-20] MEDS ORDERED: SODIUM BICARBONATE 8.4% INJ 50 MEQ/50 ML SYR IV PUSH ONE ×2 (11:30)
[2017-05-20] MEDS: SODIUM CHLOR 0.9% 1000 ML INJ 1,000 ML IV SCH ×4 (11:30→21:30)
--- NOTE | 2017-05-20 11:39 | RADRPT ---
EXAM DATE/TIME: 05/20/2017 10:59 [facility] COMPARISON: CHEST SINGLE AP, May 16, 2017, 4:28. INDICATIONS : Post central line placement, OG tube, and ET tube placement MEDICAL HISTORY : Chronic obstructive pulmonary disease. Hypertension SURGICAL HISTORY : None. ENCOUNTER: Subsequent ACUITY: 1 week PAIN SCORE: Non-responsive. LOCATION: Bilateral chest FINDINGS: Status post placement of a right-sided central line which appears to be in good position. The endotra cheal tube is in good position. NG tube is in good position. There is no pneumothorax. There is a mil d infiltrate in the left lung base. The right lung is grossly clear. There are no pleural effusions. Heart size is stable. Bony structures are stable. CONCLUSION: 1. Right central line, ET tube and NG tube appear to be in good position. 2. No pneumothorax. 3. Focal infiltrate left lung base. Jeff Foster MD on May 20, 2017 at 11:37 Board Certified Radiologist. This report was verified electronically.
--- NOTE | 2017-05-20 11:50 | PD.PROCEDR ---
Procedure Note Procedure After the risks and benefits were discussed the following procedure was performed: INTUBATION: The patient was put in optimal position for the procedure. Rapid sequence intubation was initiated by me using 20 milligrams of etomidate IV and Versed 5 milligrams of IV, Rocuronium 50 mg IV x1. DL with Mac 4 blade Grade 1 view. The patient was intubated with a 8.0 cuffed endotracheal tube. Tube placement was confirmed by visualization of the tube and balloon passing through the cords, capnometry and subsequent chest x-ray. Breath sounds were equal and well aerated bilaterally postintubation. No breath sounds over stomach. Patient tolerated procedure well. Ирина Currie MD May 20, 2017 11:50
[2017-05-20] MEDS ORDERED: ROCURONIUM INJ 50 MG/5 ML VIAL IV ONE (12:06)
[2017-05-20] MEDS ORDERED: MIDAZOLAM HCL 5 MG/ML VIAL (1 ML) IV ONE (12:06)
[2017-05-20] MEDS ORDERED: ETOMIDATE 20 MG/10 ML VIAL IV PUSH ONE (12:06)
[2017-05-20] MEDS ORDERED: LORazepam 2 MG/ML VIAL ONE (12:58)
[2017-05-20] MEDS: LORazepam 2 MG/ML VIAL IV PRN (12:59)
[2017-05-20] MEDS: LEVOFLOXACIN 750 MG PREMIX INJ 150 ML IV SCH (13:00)
[2017-05-20] MEDS: PROPOFOL 1000 MG/100 ML INJ 100 ML IV PRN ×3 (13:14→21:35)
--- NOTE | 2017-05-20 13:43 | RADRPT ---
EXAM DATE/TIME: 05/20/2017 13:07 [facility] COMPARISON: ABDOMEN FLAT & UPRIGHT, May 18, 2017, 16:24. ABDOMEN KUB ONLY, May 16, 2017, 4:16. INDICATIONS : Evaluate for ileus. MEDICAL HISTORY : Hypertension. Chronic obstructive pulmonary disease. Cardiovascular disease. SURGICAL HISTORY : None. ENCOUNTER: Subsequent ACUITY: 1 week PAIN SCORE: Non-responsive. LOCATION: Bilateral Abdomen FINDINGS: Supine view of the abdomen was performed. The abdominal bowel gas pattern is nonspecific. There is a NG-tube in stomach. There continue to be several air-filled loops of small bowel. The loops are mild ly dilated but this appears to be improved compared to the prior exam. The colon is nondilated. There is contrast in the colon. CONCLUSION: 1. NG tube in the stomach. 2. Improving bowel gas pattern compared to the prior study. Jeff Foster MD on May 20, 2017 at 13:40 Board Certified Radiologist. This report was verified electronically.
--- NOTE | 2017-05-20 13:44 | PD.CONS ---
HPI Service Nephrology Consult Requested By JOSE Campbell Reason for Consult Acute renal failure Primary Care Physician Unknown History of Present Illness The patient is a 72 yo AA male who presented to this facility on 05/13 with complaints of nausea and vomiting. Was diagnosed with SBO and treated via NG tube. He was tranferred to ICU on 05/14 for ARDS related to CHF exacerbation and was treated with IV Lasix and transferred back to the main floor on 05/16. On 05/20, was diagnosed with ischemic large bowel and was transferred back to ICU for ARF, hypokalemia, and potential prep for colon resection. At consult, SCr 1.68 with eGFR 49 (baseline renal functions appear to be normal with SCr 0.7-0.8). He has a severe cardiomyopathy with EF of only 20% Review of Systems ROS Limitations: Intubated, Unresponsive Past Family Social History Allergies: Coded Allergies: Penicillins (Verified Allergy, Unknown, 04/03/17) Past Medical History CHF with EF of 20% A fib COPD HTN DVT LE SBO Potential ischemic bowel Past Surgical History Unobtainable Reported Medications Oxygen (O2) Device Liter ALEXANDRA.CANULA CONTINUOUS Oxygen Concentrator Portable Gaseous 2 L/min via Nasal Canula Continuous For 99 months Santyl (Collagenase) 250 Unit/Gram Oin 1 Applic TOPICAL DAILY [Gentamicin 0.1% Cream] 15 APPLIC/15 GM Cr 1 Applic TOPICAL DAILY Prednisone 20 Mg Tab 20 Mg PO DAILY Dok (Docusate Sodium) 100 Mg Cap 100 Mg PO BID Furosemide 40 Mg Tab 40 Mg PO BID@18 Potassium Chloride Microencaps 20 Meq Tab 20 Meq PO DAILY Aspirin DR (Aspirin) 81 Mg Tabdr 81 Mg PO DAILY Lisinopril 5 Mg Tab 2.5 Mg PO DAILY Cardizem (Diltiazem HCl) 30 Mg Tab 30 Mg PO QID Coreg (Carvedilol) 6.25 Mg Tab 6.25 Mg PO Q12HR Coumadin (Warfarin) 5 Mg Tab 5 Mg PO DAILY@1600 start tomorrow if INR <3 Active Ordered Medications Current Medications Medications (Trade) Dose Ordered Sig/Deacon Route Start Time Stop Time Status Last Admin (NS Flush) 2 ml UNSCH PRN IV FLUSH 05/13/17 13:15 (NS Flush) 2 ml BID IV FLUSH 05/13/17 21:00 05/20/17 09:24 (Narcan Inj) 0.4 mg UNSCH PRN IV PUSH 05/13/17 13:15 Heparin Sodium/ Dextrose 250 ml @ 15 mls/hr TITRATE PRN IV 05/13/17 14:00 Future Hold 05/19/17 01:16 (Zofran Inj) 4 mg Q6HR PRN IV PUSH 05/13/17 13:15 05/19/17 02:47 (Coreg) 6.25 mg Q12HR PO 05/14/17 21:00 Future Hold 05/18/17 20:41 (Santyl Oint) 1 applic DAILY TOPICAL 05/15/17 09:00 05/18/17 08:31 (Cardizem) 30 mg QID PO 05/14/17 18:00 Future Hold 05/18/17 20:41 (Colace) 100 mg BID PO 05/14/17 21:00 05/18/17 08:31 (Lasix) 40 mg BID@,18 PO 05/14/17 18:00 Future Hold 05/14/17 18:00 (Prinivil) 2.5 mg DAILY PO 05/15/17 09:00 Future Hold 05/18/17 08:30 (KCl) 20 meq DAILY PO 05/15/17 09:00 Future Hold 05/18/17 08:31 (Deltasone) 20 mg DAILY PO 05/14/17 16:00 Future Hold 05/14/17 16:06 (Duoneb Neb) 1 ampule Q2HR NEB PRN NEB 05/14/17 15:45 05/18/17 20:03 (Pill Splitter) 1 ea UNSCH PRN OTHER 05/14/17 16:00 (K-Lyte Cl Eff) 25 meq Q12HR PO 05/14/17 21:00 Future Hold 05/18/17 20:41 (SoluMEDROL INJ) 60 mg Q6HR IV PUSH 05/14/17 19:00 05/20/17 13:01 (Aldactone) 25 mg BID@,18 PO 05/14/17 19:15 Future Hold 05/18/17 17:22 (Reglan Inj) 10 mg Q8HR IV PUSH 05/15/17 14:00 05/20/17 13:12 (Dulcolax Supp) 10 mg DAILY RECTAL 05/16/17 09:00 05/18/17 08:31 Levofloxacin/ Dextrose 150 ml @ 100 mls/hr Q24H IV 05/16/17 11:00 05/20/17 13:00 (Milk Of Magnesia Liq) 30 ml QID PRN PO 05/17/17 16:30 05/19/17 05:22 Metronidazole 100 ml @ 100 mls/hr Q6H IV 05/20/17 10:00 Potassium Chloride 100 ml @ 25 mls/hr Q4H IV 05/20/17 11:15 05/20/17 19:14 05/20/17 13:12 Sodium Chloride 1,000 ml @ 100 mls/hr Q10H IV 05/20/17 11:30 05/20/17 11:30 (Peridex 0.12% Liq) 15 ml BID@08,20 MT 05/20/17 20:00 Propofol 100 ml @ 2.109 mls/ hr TITRATE PRN IV 05/20/17 11:30 (Reglan Inj) 10 mg Q8HR IV PUSH 05/20/17 14:00 Sodium Chloride 5.5 meq/Sodium Acetate 29.5 meq/ Potassium Chloride 20 meq/ Magnesium Chloride 5 meq/ Calcium Chloride 4.5 meq/ Multivitamins 10 ml/Folic Acid 1 mg/Amino Acids/ Dextrose 1,042.1719 ml @ 83 mls/hr [id number] IV-CENTRAL 05/20/17 20:00 Sodium Chloride 1,000 ml @ 999 mls/hr Q1H1M IV 05/20/17 12:06 05/20/17 14:06 05/20/17 13:07 Family History NC Social History Records show quit tobacco 2013 Quit EtOH 1999 Physical Exam Vital Signs Vital Signs Date Time Temp Pulse Resp B/P (MAP) Pulse Ox O2 Delivery O2 Flow Rate FiO2 05/20/17 11:20 100 60 05/20/17 10:33 99 100 05/20/17 10:00 Non-Rebreather 15.00 05/20/17 08:00 97.2 74 19 111/76 (88) 96 05/20/17 08:00 83 05/20/17 08:00 Nasal Cannula 5.00 05/20/17 07:49 90 Nasal Cannula 5.00 05/20/17 04:23 97.6 71 20 103/57 (72) 92 05/20/17 03:59 129 05/19/17 23:55 74 05/19/17 23:46 98.1 81 18 148/72 (97) 93 05/19/17 20:49 95 Nasal Cannula 5.00 05/19/17 20:38 84 05/19/17 20:00 Nasal Cannula 5.00 Humidified 05/19/17 19:47 98.8 83 18 124/68 (86) 94 05/19/17 16:00 98.8 74 20 124/73 (90) 93 05/19/17 16:00 88 Physical Exam GENERAL: Intubated, sedated SKIN: Warm and dry. HEAD: Atraumatic. Normocephalic. EYES: Pupils equal and round. No scleral icterus. No injection or drainage. ENT: No nasal bleeding or discharge. Mucous membranes pink and moist. NECK: Trachea midline. No JVD. CARDIOVASCULAR: Regular rate and rhythm. RESPIRATORY: No accessory muscle use. Clear to auscultation. Breath sounds equal bilaterally. GASTROINTESTINAL: Abdomen soft, distended MUSCULOSKELETAL: Extremities without clubbing, cyanosis, or edema. No obvious deformities. NEUROLOGICAL: Intubated and sedated PSYCHIATRIC: Intubated and sedated Laboratory Laboratory Tests Test 05/20/17 05:35 05/20/17 07:32 05/20/17 11:07 White Blood Count 11.3 Red Blood Count 5.55 Hemoglobin 16.3 Hematocrit 48.8 Mean Corpuscular Volume 88.0 Mean Corpuscular Hemoglobin 29.3 Mean Corpuscular Hemoglobin Concent 33.3 Red Cell Distribution Width 17.1 Platelet Count 211 Mean Platelet Volume 8.9 Neutrophils (%) (Auto) 93.2 Lymphocytes (%) (Auto) 1.6 Monocytes (%) (Auto) 5.1 Eosinophils (%) (Auto) 0.1 Basophils (%) (Auto) 0.0 Neutrophils # (Auto) 10.5 Lymphocytes # (Auto) 0.2 Monocytes # (Auto) 0.6 Eosinophils # (Auto) 0.0 Basophils # (Auto) 0.0 CBC Comment DIFF FINAL Differential Comment Blood Urea Nitrogen 51 Creatinine 1.68 Random Glucose 225 Total Protein 6.8 Albumin 2.8 Calcium Level 9.2 Alkaline Phosphatase 53 Aspartate Amino Transf (AST/SGOT) 69 Alanine Aminotransferase (ALT/SGPT) 52 Total Bilirubin 1.5 Sodium Level 141 Potassium Level 2.3 Chloride Level 82 Carbon Dioxide Level GREATER THAN 45.0 Anion Gap 14 Estimat Glomerular Filtration Rate 49 Blood Gas Puncture Site RT RADIAL RT RADIAL Blood Gas Patient Temperature 98.6 98.6 Blood Gas HCO3 60 56 Blood Gas Base Excess 30.1 Blood Gas Oxygen Saturation 85 98 Arterial Blood pH 7.49 7.56 Arterial Blood Partial Pressure CO2 79 63 Arterial Blood Partial Pressure O2 54 220 Arterial Blood Oxygen Content 18.9 22.2 Arterial Blood Carboxyhemoglobin 1.5 1.4 Arterial Blood Methemoglobin 0.9 0.9 Blood Gas Hemoglobin 15.9 15.9 Oxygen Delivery Device NASAL CANNULA VENTILATOR Blood Gas Liter Flow 5 Blood Gas Ventilator Setting 550/14/PEEP5 Blood Gas Inspired Oxygen 100 Result Diagram: 05/20/17 0535 05/20/17 0535 Imaging Last Impressions Chest X-Ray 05/20/17 0000 Signed Impressions: Service Date/Time: Saturday, May 20, 2017 10:59 - CONCLUSION: 1. Right central line, ET tube and NG tube appear to be in good position. 2. No pneumothorax. 3. Focal infiltrate left lung base. Jeff Foster MD Abdomen X-Ray 05/18/17 0000 Signed Impressions: Service Date/Time: Thursday, May 18, 2017 16:24 - CONCLUSION: Dilated loops of bowel are noted felt to represent an ileus pattern. Gaetano Plasencia MD Small Bowel X-Ray 05/14/17 0000 Signed Impressions: Service Date/Time: Sunday, May 14, 2017 11:20 - CONCLUSION: 1. Findings consistent with CT examination and suggestive of high grade obstruction in the distal jejunum/proximal ileum. Kwaku Vences MD Abdomen/Pelvis CT 05/13/17 1005 Signed Impressions: Service Date/Time: Saturday, May 13, 2017 11:36 - CONCLUSION: 1. Mid to distal jejunal small bowel ileus with acute transition characteristic of high grade small bowel obstruction. 2. Uncomplicated colonic diverticulosis. 3. Mild ascites. 4. Uncomplicated colonic diverticulosis. Conor John MD Assessment and Plan Problem List: (1) Acute renal insufficiency ICD Codes: N28.9 - Disorder of kidney and ureter, unspecified Plan: Potentially related to hemodynamic factors and aggressive diuretic use in setting of SBO and high gastric output. Hold diuretics for the present. Received 2L bolus of NS and on IVF at 100mL/hr Gentle hydration given severely impaired EF of 20% UOP remains good, so hopefully renal functions will respond to hydration. Medications should be adjusted for the patient's renal insufficiency. Avoid nephrotoxins such as iodinated contrast dyes and NSAIDs Avoid gadolinium when eGFR <30. (2) Hypokalemia ICD Codes: E87.6 - Hypokalemia Plan: Repletion ordered (3) Acute hypoxemic respiratory failure ICD Codes: J96.01 - Acute respiratory failure with hypoxia Plan: Intubated (4) Alkalosis ICD Codes: E87.3 - Alkalosis (5) Cardiomyopathy ICD Codes: I42.9 - Cardiomyopathy, unspecified Plan: Reported EF of 20% (6) COPD (chronic obstructive pulmonary disease) ICD Codes: J44.9 - Chronic obstructive pulmonary disease, unspecified (7) Atrial fibrillation ICD Codes: I48.91 - Unspecified atrial fibrillation Status: Chronic (8) Small bowel obstruction ICD Codes: K56.609 - Unspecified intestinal obstruction, unspecified as to partial versus complete obstruction Status: Acute Verónica Gudino May 20, 2017 13:44
--- NOTE | 2017-05-20 13:52 | HHI.HCPN ---
Reason for visit a. To assist with evaluation and management of symptoms including: Abdominal pain, shortness of breath, debility. b. To assist medical decision maker(s) with: better understanding of current medical conditions; weighing benefits/burdens of medical treatment options; making medical treatment decisions. . Subjective/Interval History Clinical course complicated by: Obstruction with severe dilatation extending into the small bowel, electrolyte imbalances, respiratory failure and prerenal azotemia. Patient was intubated and placed on mechanical ventilation. Transferred to surgical ICU for further monitoring and management. Energy Systems Engineer, Dr. kern consulted. Patient with significant history of severe COPD, congestive heart failure with EF of 20%. General surgery, Dr. Murray following. Plan for emergency bowel resection today, however, on hold as patient is having bowel movements. Pending repeat KUB. Patient seen in surgical ICU. Endotracheally intubated on mechanical ventilation. Sedated on propofol. Currently requiring norepinephrine drip. Febrile. Chest x-ray this morning revealing focal infiltrate to left lung base. Laboratory workup today revealing WBC 11.3, Hgb 16.3. Potassium 2.3, BUN /creatinine 51/1.68. Telephone conversation with patient's cousin/healthcare surrogate Kathie Nuñezkeley. Medical update provided. She reports that her she visited patient over the weekend. Receptive to palliative care follow-ups as patient clinical course continues to evolve. Discussed that prognosis is guarded at this time given severe cardiopulmonary disease. Case discussed with bedside RN. . Family/friend interactions See interval note. . Advance Directives Health Care Surrogate: Copy in medical record Advance Directive Specifics Date completed: 05/15/2017. . Health Care Surrogate(s): cousin Kathie Cagle Keri listed as healthcare surrogate decision maker. Alternate surrogate is cousin Dee Taylor. . Documented care wishes: Patient verbalized that in the event of being placed on life support, he would only allow 2 days and if no recovery, okay to "let him go" . Significant change in goals: Goals of therapy remain aggressive. . Objective Vital Signs Date Time Temp Pulse Resp B/P (MAP) Pulse Ox O2 Delivery O2 Flow Rate FiO2 05/20/17 11:20 100 60 05/20/17 10:33 99 100 05/20/17 10:00 Non-Rebreather 15.00 05/20/17 08:00 97.2 74 19 111/76 (88) 96 05/20/17 08:00 83 05/20/17 08:00 Nasal Cannula 5.00 05/20/17 07:49 90 Nasal Cannula 5.00 05/20/17 04:23 97.6 71 20 103/57 (72) 92 05/20/17 03:59 129 05/19/17 23:55 74 05/19/17 23:46 98.1 81 18 148/72 (97) 93 05/19/17 20:49 95 Nasal Cannula 5.00 05/19/17 20:38 84 05/19/17 20:00 Nasal Cannula 5.00 Humidified 05/19/17 19:47 98.8 83 18 124/68 (86) 94 05/19/17 16:00 98.8 74 20 124/73 (90) 93 05/19/17 16:00 88 Intake & Output 05/20/17 05/20/17 07:00 19:00 Intake Total 400 ml Balance 400 ml IV Total 400 ml Physical Exam CONSTITUTIONAL/GENERAL: This is an adequately nourished patient, in no apparent distress. TUBES/LINES/DRAINS: ETT, OG, PIV, bilateral soft wrist restraints, Faulkner catheter. SKIN: No jaundice, rashes. Skin temperature appropriate. Not diaphoretic. Nonhealing sores to bilateral lower extremities. HEAD: Atraumatic. Normocephalic. EYES: Pupils equal and round and reactive. No scleral icterus. No injection or drainage. ENT: Nose without bleeding or purulent drainage. Moist oral mucosa. OG to suction. NECK: Trachea midline. Supple. CARDIOVASCULAR: Regular rate and rhythm. Peripheral pulses symmetric. Venous stasis to bilateral lower extremities. RESPIRATORY/CHEST: Symmetric, unlabored respirations. Coarse breath sounds bilaterally. Endotracheally intubated on mechanical ventilation. GASTROINTESTINAL: Abdomen large, round, soft. Hypoactive bowel sounds. GENITOURINARY: Without palpable bladder distension. Faulkner catheter in place. MUSCULOSKELETAL: Extremities without clubbing. Edema to bilateral lower extremities. NEUROLOGICAL: Sedated. PSYCHIATRIC: Unable to evaluate secondary to condition. . Diagnostic Tests Laboratory Laboratory Tests Test 05/17/17 18:55 05/18/17 07:34 05/19/17 06:33 05/20/17 05:35 White Blood Count 9.3 TH/MM3 (4.0-11.0) 7.9 TH/MM3 (4.0-11.0) 11.3 TH/MM3 (4.0-11.0) Red Blood Count 5.21 MIL/MM3 (4.50-5.90) 5.41 MIL/MM3 (4.50-5.90) 5.55 MIL/MM3 (4.50-5.90) Hemoglobin 16.0 GM/DL (13.0-17.0) 16.1 GM/DL (13.0-17.0) 16.3 GM/DL (13.0-17.0) Hematocrit 45.9 % (39.0-51.0) 47.5 % (39.0-51.0) 48.8 % (39.0-51.0) Mean Corpuscular Volume 88.2 FL (80.0-100.0) 87.7 FL (80.0-100.0) 88.0 FL (80.0-100.0) Mean Corpuscular Hemoglobin 30.8 PG (27.0-34.0) 29.7 PG (27.0-34.0) 29.3 PG (27.0-34.0) Mean Corpuscular Hemoglobin Concent 34.9 % (32.0-36.0) 33.8 % (32.0-36.0) 33.3 % (32.0-36.0) Red Cell Distribution Width 17.5 % (11.6-17.2) 17.2 % (11.6-17.2) 17.1 % (11.6-17.2) Platelet Count 283 TH/MM3 (150-450) 267 TH/MM3 (150-450) 211 TH/MM3 (150-450) Mean Platelet Volume 8.0 FL (7.0-11.0) 8.4 FL (7.0-11.0) 8.9 FL (7.0-11.0) Neutrophils (%) (Auto) 92.5 % (16.0-70.0) 93.2 % (16.0-70.0) Lymphocytes (%) (Auto) 3.7 % (9.0-44.0) 1.6 % (9.0-44.0) Monocytes (%) (Auto) 3.7 % (0.0-8.0) 5.1 % (0.0-8.0) Eosinophils (%) (Auto) 0.0 % (0.0-4.0) 0.1 % (0.0-4.0) Basophils (%) (Auto) 0.1 % (0.0-2.0) 0.0 % (0.0-2.0) Neutrophils # (Auto) 8.6 TH/MM3 (1.8-7.7) 10.5 TH/MM3 (1.8-7.7) Lymphocytes # (Auto) 0.3 TH/MM3 (1.0-4.8) 0.2 TH/MM3 (1.0-4.8) Monocytes # (Auto) 0.3 TH/MM3 (0-0.9) 0.6 TH/MM3 (0-0.9) Eosinophils # (Auto) 0.0 TH/MM3 (0-0.4) 0.0 TH/MM3 (0-0.4) Basophils # (Auto) 0.0 TH/MM3 (0-0.2) 0.0 TH/MM3 (0-0.2) CBC Comment DIFF FINAL DIFF FINAL Differential Comment Activated Partial Thromboplast Time 49.9 SEC (24.3-30.1) 52.4 SEC (24.3-30.1) 53.3 SEC (24.3-30.1) Blood Urea Nitrogen 39 MG/DL (7-18) 51 MG/DL (7-18) Creatinine 1.07 MG/DL (0.60-1.30) 1.68 MG/DL (0.60-1.30) Random Glucose 161 MG/DL (74-106) 225 MG/DL (74-106) Calcium Level 9.0 MG/DL (8.5-10.1) 9.2 MG/DL (8.5-10.1) Sodium Level 139 MEQ/L (136-145) 141 MEQ/L (136-145) Potassium Level 2.6 MEQ/L (3.5-5.1) 2.3 MEQ/L (3.5-5.1) Chloride Level 78 MEQ/L (98-107) 82 MEQ/L (98-107) Carbon Dioxide Level GREATER THAN 45.0 MEQ/L GREATER THAN 45.0 MEQ/L Anion Gap 16 MEQ/L (5-15) 14 MEQ/L (5-15) Estimat Glomerular Filtration Rate 82 ML/MIN (>89) 49 ML/MIN (>89) Total Protein 6.8 GM/DL (6.4-8.2) Albumin 2.8 GM/DL (3.4-5.0) Alkaline Phosphatase 53 U/L (45-117) Aspartate Amino Transf (AST/SGOT) 69 U/L (15-37) Alanine Aminotransferase (ALT/SGPT) 52 U/L (12-78) Total Bilirubin 1.5 MG/DL (0.2-1.0) Test 05/20/17 07:32 05/20/17 11:07 Blood Gas Puncture Site RT RADIAL RT RADIAL Blood Gas Patient Temperature 98.6 98.6 Blood Gas HCO3 60 mmol/L (22-26) 56 mmol/L (22-26) Blood Gas Base Excess mmol/L (-2-2) 30.1 mmol/L (-2-2) Blood Gas Oxygen Saturation 85 % (90-100) 98 % (90-100) Arterial Blood pH 7.49 (7.380-7.420) 7.56 (7.380-7.420) Arterial Blood Partial Pressure CO2 79 mmHg (38-42) 63 mmHg (38-42) Arterial Blood Partial Pressure O2 54 mmHg (61-120) 220 mmHg (61-120) Arterial Blood Oxygen Content 18.9 Vol % (12.0-20.0) 22.2 Vol % (12.0-20.0) Arterial Blood Carboxyhemoglobin 1.5 % (0-4) 1.4 % (0-4) Arterial Blood Methemoglobin 0.9 % (0-2) 0.9 % (0-2) Blood Gas Hemoglobin 15.9 G/DL (12.0-16.0) 15.9 G/DL (12.0-16.0) Oxygen Delivery Device NASAL CANNULA VENTILATOR Blood Gas Liter Flow 5 L/M Blood Gas Ventilator Setting 550/14/PEEP5 Blood Gas Inspired Oxygen 100 % Result Diagram: 05/20/17 0535 05/20/17 0535 Microbiology Microbiology Date/Time Source Procedure Growth Status 05/20/17 11:40 Sputum Endotracheal Gram Stain Pending Received 05/20/17 11:40 Sputum Endotracheal Sputum Culture Pending Received Imaging Last 48 hours Impressions Chest X-Ray 05/20/17 0000 Signed Impressions: Service Date/Time: Saturday, May 20, 2017 10:59 - CONCLUSION: 1. Right central line, ET tube and NG tube appear to be in good position. 2. No pneumothorax. 3. Focal infiltrate left lung base. Jeff Foster MD Procedures * 05/20/17 -endotracheally intubated . Assessment and Plan Disease Oriented Problem List: (1) Acute hypoxemic respiratory failure (2) Small bowel obstruction (3) COPD (chronic obstructive pulmonary disease) (4) Systolic heart failure (5) Cardiomyopathy (6) Leg ulcer, left Symptom Scale: (1) Abdominal pain 0-10 Scale: 0 (2) Dyspnea 0-10 Scale: Unable to quantify Pertinent Non-Medical Issues Psychosocial: Patient is single, never . No children. [employer] , disabled secondary to PTSD. Patient was born and raised in [place]. Highest level of education is high school. Patient has 2 siblings in the area, one cousin that lives in [place]. Spiritual: No mandaen affiliation. Legal: Advance directives completed. Ethical issues impacting care: No ethical issues identified. . Important Contacts HCS/cousin Kathie Saavedra . Alternate surrogate/cousin Dee Taylor . . Prognosis Mr. Rocha is a 72-year-old male with a medical history significant for CHF, COPD, atrial fibrillation, medication noncompliance. Patient with significant progression of cardiopulmonary disease. He is O2 dependent, EF of 20%. Patient admitted for small bowel obstruction, somewhat improving. However, patient remains at high risk for further complications, continued decline and . Patient appears hospice appropriate should he elects comfort-directed care given significant cardiopulmonary disease. . Code Status: Full Code Plan * CODE STATUS: Full code. * HEALTHCARE DECISION-MAKING: Patient unable to participating medical decision making at this time secondary to clinical condition, sedated, intubated. Advance directives completed. Patient has designated is helensin Kathie Saavedra as healthcare surrogate decision maker, alternate is helensin Dee Taylor. * GOALS OF CARE: Patient previously electing to pursue aggressive management to include surgical intervention for small bowel obstruction and FULL code. Healthcare surrogate/cousin Kathie Saavedra supportive of patient's wishes. Family wishing to allow a few more days for clinical improvement. * SYMPTOMS: = Abdominal pain, secondary to SBO. General surgery following. Plan for bowel resection and whole at this time, patient having bowel movements. = Shortness of breath: Secondary to COPD, CHF exacerbation. Currently intubated on mechanical ventilation. = Debility: chronic. Rehabilitation was recommended during prior admission, patient declined. PT following during this admission, home with home health recommended. * Case discussed with bedside RN. * Palliative care contact information has been provided to patient and family. * Palliative care will continue to follow up for further clarification of goals of care as patient's clinical course continues to evolve. . Time Spent Total Floor Time (mins): 33 (Total time to include review of medical records, physical exam, goals of care conversation with patient's cousin/HCS, case discussion with bedside RN.) >50% Counseling/Coord of Care: Yes Attestation To help prompt me to consider important information that might be impacting today's encounter and assessment, information from prior notes written by myself or my colleagues may have been "brought forward" into today's note. My signature on this note, however, is an attestation that I personally performed the exam, history, and/or decision-making noted today, and, unless otherwise indicated, the interactions with patient, family, and staff as well as the review of records all occurred today. I also attest that the listed assessment and stated plan reflect my best clinical judgment today based on the combination of historical information, prior notes, and today's exam/ interactions. When time spent is documented, it refers only to time spent today by the signer, or if indicated, combined time spent today by collaborating physician/nurse practitioner. Areli Dunaway May 20, 2017 13:52
[2017-05-20] MEDS ORDERED: NOREPINEPHRINE 4 MG/D5W 250 ML IV PRN (14:15)
[2017-05-20 15:06] LABS: COMPLEMENT C3 89 MG/DL (90-180); COMPLEMENT C4 24 MG/DL (10-40); PHOSPHORUS 2.3 MG/DL (2.5-4.9)
--- NOTE | 2017-05-20 15:14 | HHI.PR ---
cc: Raleigh Murray MD Subjective Subjective Notes DAILY PROGRESS NOTE FOR SURGICAL ATTENDING, DR. RALEIGH MURRAY Moved to [facility] this morning due to respiratory distress Now Intubated +BM Objective Vitals/I&O Vital Signs Date Time Temp Pulse Resp B/P (MAP) Pulse Ox O2 Delivery O2 Flow Rate FiO2 05/20/17 11:20 100 60 05/20/17 10:00 Non-Rebreather 15.00 05/20/17 08:00 97.2 74 19 111/76 (88) Labs Laboratory Tests Test 05/20/17 05:35 05/20/17 07:32 05/20/17 11:07 05/20/17 14:25 White Blood Count 11.3 Red Blood Count 5.55 Hemoglobin 16.3 Hematocrit 48.8 Mean Corpuscular Volume 88.0 Mean Corpuscular Hemoglobin 29.3 Mean Corpuscular Hemoglobin Concent 33.3 Red Cell Distribution Width 17.1 Platelet Count 211 Mean Platelet Volume 8.9 Neutrophils (%) (Auto) 93.2 Lymphocytes (%) (Auto) 1.6 Monocytes (%) (Auto) 5.1 Eosinophils (%) (Auto) 0.1 Basophils (%) (Auto) 0.0 Neutrophils # (Auto) 10.5 Lymphocytes # (Auto) 0.2 Monocytes # (Auto) 0.6 Eosinophils # (Auto) 0.0 Basophils # (Auto) 0.0 CBC Comment DIFF FINAL Differential Comment Blood Urea Nitrogen 51 Creatinine 1.68 Random Glucose 225 Total Protein 6.8 Albumin 2.8 Calcium Level 9.2 Alkaline Phosphatase 53 Aspartate Amino Transf (AST/SGOT) 69 Alanine Aminotransferase (ALT/SGPT) 52 Total Bilirubin 1.5 Sodium Level 141 Potassium Level 2.3 Chloride Level 82 Carbon Dioxide Level GREATER THAN 45.0 Anion Gap 14 Estimat Glomerular Filtration Rate 49 Blood Gas Puncture Site RT RADIAL RT RADIAL Blood Gas Patient Temperature 98.6 98.6 Blood Gas HCO3 60 56 Blood Gas Base Excess 30.1 Blood Gas Oxygen Saturation 85 98 Arterial Blood pH 7.49 7.56 Arterial Blood Partial Pressure CO2 79 63 Arterial Blood Partial Pressure O2 54 220 Arterial Blood Oxygen Content 18.9 22.2 Arterial Blood Carboxyhemoglobin 1.5 1.4 Arterial Blood Methemoglobin 0.9 0.9 Blood Gas Hemoglobin 15.9 15.9 Oxygen Delivery Device NASAL CANNULA VENTILATOR Blood Gas Liter Flow 5 Blood Gas Ventilator Setting 550/14/PEEP5 Blood Gas Inspired Oxygen 100 Phosphorus Level 2.3 Complement C3 89 Complement C4 24 Date/Time Source Procedure Growth Status 05/20/17 11:40 Sputum Endotracheal Gram Stain Pending Received 05/20/17 11:40 Sputum Endotracheal Sputum Culture Pending Received Radiology Last Impressions Chest X-Ray 05/20/17 0000 Signed Impressions: Service Date/Time: Saturday, May 20, 2017 10:59 - CONCLUSION: 1. Right central line, ET tube and NG tube appear to be in good position. 2. No pneumothorax. 3. Focal infiltrate left lung base. Jeff Foster MD Abdomen X-Ray 05/20/17 0000 Signed Impressions: Service Date/Time: Saturday, May 20, 2017 13:07 - CONCLUSION: 1. NG tube in the stomach. 2. Improving bowel gas pattern compared to the prior study. Jeff Foster MD Small Bowel X-Ray 05/14/17 0000 Signed Impressions: Service Date/Time: Sunday, May 14, 2017 11:20 - CONCLUSION: 1. Findings consistent with CT examination and suggestive of high grade obstruction in the distal jejunum/proximal ileum. Kwaku Vences MD Abdomen/Pelvis CT 05/13/17 1005 Signed Impressions: Service Date/Time: Saturday, May 13, 2017 11:36 - CONCLUSION: 1. Mid to distal jejunal small bowel ileus with acute transition characteristic of high grade small bowel obstruction. 2. Uncomplicated colonic diverticulosis. 3. Mild ascites. 4. Uncomplicated colonic diverticulosis. Conor John MD Cardiovascular: Regular Lungs: Rhonchi Abdomen: Non-distended, Non-tender Extremities: Other (mild generalized edema ) A/P Problem List: (1) Acute hypoxemic respiratory failure ICD Codes: J96.01 - Acute respiratory failure with hypoxia (2) Respiratory failure ICD Codes: J96.90 - Respiratory failure, unspecified, unspecified whether with hypoxia or hypercapnia (3) Ileus ICD Codes: K56.7 - Ileus, unspecified Status: Acute (4) DVT (deep venous thrombosis) ICD Codes: I82.409 - Acute embolism and thrombosis of unspecified deep veins of unspecified lower extremity Status: Acute (5) Atrial fibrillation ICD Codes: I48.91 - Unspecified atrial fibrillation Status: Chronic (6) Bilious vomiting with nausea ICD Codes: R11.14 - Bilious vomiting Status: Acute (7) History of CHF (congestive heart failure) ICD Codes: Z86.79 - Personal history of other diseases of the circulatory system Status: Acute (8) History of DVT (deep vein thrombosis) ICD Codes: Z86.718 - Personal history of other venous thrombosis and embolism Status: Acute (9) skilled nursing (current) use of anticoagulants ICD Codes: Z79.01 - skilled nursing (current) use of anticoagulants Status: Acute (10) COPD (chronic obstructive pulmonary disease) ICD Codes: J44.9 - Chronic obstructive pulmonary disease, unspecified (11) Cardiomyopathy ICD Codes: I42.9 - Cardiomyopathy, unspecified (12) Dyspnea ICD Codes: R06.00 - Dyspnea, unspecified (13) Hypokalemia ICD Codes: E87.6 - Hypokalemia Assessment and Plan 72 year old male with multiple medical issues; BLE DVTs; SBO -Moved to [facility] due to respiratory distress---- now intubated---CCM following -NGT to LIWS -Start TPN -+BM; abdomen soft -Will continue nonoperative management for now but will need to closely monitor Attending Statement NOTE FOR SURGICAL ATTENDING, DR. RALEIGH MURRAY Patient had a turn for the worse requiring more oxygen and was transferred to the intensive care unit We had to postpone his morning case because his respiratory status requiring intubation I discussed with Dr. Muñoz wet cleaner machine and Dr. Currie wet cleaner machine to resuscitate the patient After he was intubated and IVs placed KUB shows contrast in the descending colon and rectum Patient had a bowel movement His respiratory status is improving after intubation Electrolyte are being replaced Since the patient had a bowel movement his KUB shows contrast in the colon and rectum I believe he has a severe ileus perhaps correcting his hypokalemia and other electrolyte abnormalities will improve his severe ileus We'll postpone her cancel surgery at this time Discussed with nursing staff and they are planning to restart the heparin I agree with above assessment and plan. The exam, history, and the medical decision-making described in the above note were completed with the assistance of the mid-level provider. I reviewed and agree with the findings presented. I attest that I had a [id number] encounter with the patient on the same day, and personally performed and documented my assessment and findings in the medical record. The following services were provided during this hospital visit: Chart data review, vital sign assessments/reviewing monitor data Review of consultations notes if present. Medication orders/review and/or management Ordering and/or reviewing lab tests Ordering and/or interpreting/reviewing x-rays and/or diagnostic studies Care of the patient and discussion of the patient with the care team Documentation time To help prompt me to consider important information that might be impacting today's encounter and assessment, information from prior notes written by myself or my colleagues may have been "brought forward/copy and pasted" into today's note. Emilee Martinez/[place] [employer] ARNP May 20, 2017 15:14 Raleigh Murray MD May 20, 2017 19:12
[2017-05-20] MEDS: metroNIDAZOLE 500 MG INJ 100 ML IV SCH ×3 (15:27→21:35)
[2017-05-20] MEDS ORDERED: POTASSIUM CHLOR 40 MEQ PREMIX 100 ML IV ONE (18:30)
[2017-05-20] MEDS: HEPARIN-D5W 25,000 U/250 ML 250 ML IV PRN (18:35)
[2017-05-20] MEDS: RESP: ALBUTEROL 2.5 MG/IPRATROPIUM 0.5 MG NEB (PRN) NEB (19:43)
[2017-05-20] MEDS: CHLORHEXIDINE 0.12% (ORAL KIT) 15 ML CUP MT SCH (20:00)
[2017-05-20] MEDS: CLINIMIX 4.25/25 (Cust.Renal Central) 1000 mL- </= 42 mls/hr IV-CENTRAL SCH ×8 (20:20)
[2017-05-20] MEDS: COLLAGENASE OINT 30 GM TUBE TOPICAL SCH (21:36)
[2017-05-21] VITALS (19 sets, daily range): BP systolic 101–155; BP diastolic 58–92; PULSE 54–91; RESP 12–18; TEMP 95.9–98.3; O2SAT 92–100
[2017-05-21] MEDS: methylPREDNISolone SOD SUCC 125 MG/2 ML VIAL IV PUSH SCH ×4 (00:12→17:00)
[2017-05-21] MEDS: metroNIDAZOLE 500 MG INJ 100 ML IV SCH ×4 (02:58→21:42)
[2017-05-21] MEDS: PROPOFOL 1000 MG/100 ML INJ 100 ML IV PRN ×4 (02:59→17:01)
[2017-05-21] MEDS: SODIUM CHLOR 0.9% 1000 ML INJ 1,000 ML IV SCH (05:35)
[2017-05-21] MEDS: METOCLOPRAMIDE HCL 10 MG/2 ML VIAL IV PUSH SCH ×6 (05:39→20:09)
[2017-05-21 06:57] LABS: ALBUMIN 2.3 GM/DL (3.4-5.0); BICARBONATE 43.9 MEQ/L (21.0-32.0); CALCIUM 8.3 MG/DL (8.5-10.1); CREATININE 1.03 MG/DL (0.60-1.30); PHOSPHORUS 1.4 MG/DL (2.5-4.9)
[2017-05-21] MEDS: CHLORHEXIDINE 0.12% (ORAL KIT) 15 ML CUP MT SCH ×2 (08:00→20:00)
[2017-05-21] MEDS: CLINIMIX 4.25/25 (Cust.Renal Central) 1000 mL- </= 42 mls/hr IV-CENTRAL SCH ×16 (08:59→21:42)
[2017-05-21] MEDS: SODIUM CHLORIDE 0.9% FLUSH 10 ML FLUSH IV FLUSH SCH ×2 (09:00→20:08)
[2017-05-21] MEDS: COLLAGENASE OINT 30 GM TUBE TOPICAL SCH (09:00)
[2017-05-21] MEDS: DOCUSATE SODIUM 100 MG CAP PO SCH ×2 (09:00→20:08)
[2017-05-21] MEDS: BISACODYL 10 MG SUPP RECTAL SCH (09:00)
[2017-05-21] MEDS ORDERED: POTASSIUM CHLORIDE INJ 40 MEQ in SODIUM CHLORID 0.9% 500 ML INJ 500 ML IV-CENTRAL ONE (10:15)
--- NOTE | 2017-05-21 10:23 | HHI.CCPN ---
Subjective Remarks/Hospital Course Patient is a 72-year-old -[place] male with past medical history significant for COPD on home oxygen, chronic systolic heart failure EF 20-25%, chronic atrial fibrillation, bilateral lower extremity DVT on Coumadin, who was admitted to the hospitalist service on 05/13/2017 with history of nausea, vomiting with no diarrhea, not passing gas or stools for last 2 days. ER workup which included a CT of the abdomen pelvis showed small bowel obstruction which was high-grade. General surgery was consulted and patient was admitted to the floor. He was kept n.p.o. and NGT was placed. He was placed on a heparin drip for subtherapeutic INR. Today Halicat was called as patient became acutely hypoxemic. His O2 saturation went down to low 70s and was placed on 100% nonrebreather. Stat chest x-ray showed increasing interstitial edema and pulmonary vascular congestion indicating a CHF exacerbation. I evaluated the patient in the ICU. He is in a moderate respiratory distress currently on 100% nonrebreather. Physical exam revealed elevated JVD and bibasilar crackles. It appears that patient has acute systolic heart failure exacerbation. I will give IV Lasix 40 mg 1 now and scheduled 40 every 12. If his condition does not improve with the above measures patient may need endotracheal intubation, he is not a candidate for BiPAP due to significant small bowel obstruction and risk of aspiration. SB series is pending at this time, and Dr. Murray thinks it is ileus. Start IV Reglan, keep K>4 SUBJ 05/15/17: Remains on partial nonrebreather desaturates when placed on Ventimask 50%. He claims that he is breathing more comfortably. With IV Lasix made 1 L urine overnight. Started on Reglan yesterday ileus persist. Increase Reglan to 10 mg every 8. Small bowel series showing high grade obstruction. 05/16: Supplemental O2 down to 5 liters. Bowel is opening up, no surgery planned. Transfer. 05/20: Patient has developed what appears to be complete colon obstruction with severe dilation extending into small bowel. Now dehydrated with prerenal azotemia and electrolyte imbalance. We will bring him to the ICU, intubate, hydrate, place NG tube, correct electrolytes and generally maximize his physiological status as best as can be accomplished for a patient with COPD and baseline EF 25%. He requires laparotomy and colon resection for probable ischemic bowel. Patient agrees to surgery and wants continued aggressive care. I intubated patient after arrival to ICU and placed central line. Aggressive resuscitation started. Discussed with general surgery. Also has severe hypokalemia, potassium is 2.3 03: Patient having BMs. Abdomen soft, will continue to decompress from above. Objective Vital Signs Date Time Temp Pulse Resp B/P (MAP) Pulse Ox O2 Delivery O2 Flow Rate FiO2 05/21/17 08:52 35 05/21/17 08:52 94 05/21/17 07:00 Mechanical Ventilator 05/21/17 06:00 60 05/21/17 04:00 97.5 18 101/58 (72) 05/20/17 10:00 15.00 Intake and Output 05/21/17 05/21/17 05/22/17 08:00 16:00 00:00 Intake Total 1264 ml Output Total 975 ml Balance 289 ml Result Diagram: 05/20/17 0535 05/21/17 0545 Other Results Laboratory Tests Test 05/20/17 11:07 Blood Gas Puncture Site RT RADIAL Blood Gas Patient Temperature 98.6 Blood Gas HCO3 56 mmol/L (22-26) Blood Gas Base Excess 30.1 mmol/L (-2-2) Blood Gas Oxygen Saturation 98 % (90-100) Arterial Blood pH 7.56 (7.380-7.420) Arterial Blood Partial Pressure CO2 63 mmHg (38-42) Arterial Blood Partial Pressure O2 220 mmHg (61-120) Arterial Blood Oxygen Content 22.2 Vol % (12.0-20.0) Arterial Blood Carboxyhemoglobin 1.4 % (0-4) Arterial Blood Methemoglobin 0.9 % (0-2) Blood Gas Hemoglobin 15.9 G/DL (12.0-16.0) Oxygen Delivery Device VENTILATOR Blood Gas Ventilator Setting 550/14/PEEP5 Blood Gas Inspired Oxygen 100 % Imaging Chest x-ray shows bilateral pulmonary vascular congestion and atelectasis Objective Remarks GENERAL: Ill-appearing male. SKIN: warm/dry. HEAD: Atraumatic. Normocephalic. EYES: No scleral icterus. No injection or drainage. ENT: No nasal bleeding or discharge. Mucous membranes dry NECK: Trachea midline. Supple. Neck veins full. CARDIOVASCULAR: S1-S2, no m,r. Irregular RESPIRATORY: Breath sounds equal bilaterally with few fine crackles, no wheezes. GASTROINTESTINAL: Abdomen soft moderately distended. Less tenderness, BS present. MUSCULOSKELETAL: No edema. Bilateral chronic venous normal when light. A/P Assessment and Plan ASSESSMENT: Acute hypoxemic respiratory failure Colonic ileus, small bowel obstruction Severe hypokalemia Chronic systolic heart failure exacerbation COPD Cardiomyopathy EF 20-25% COPD on home oxygen Bilateral DVT Chronic atrial fibrillation PLAN: NEURO: -Post intubation propofol for sedation and vent synchrony -Avoid opiates due to ileus -Propofol sedation RESP: -CPAP trials. -Intubated and placed on mechanical ventilation for hypoxemia and to facilitate resuscitation -Vent bundle. DuoNeb every 4 hours scheduled and as needed -Solu-Medrol 60 every 6 hours, hold prednisone -Empiric Levaquin for COPD exacerbation CV: -Hold Lasix. Hold Aldactone -Taper levophed to keep map above 65 -Chest x-ray previously showed worsening interstitial edema -Currently on Coreg and Cardizem and lisinopril for CHF and A. fib-hold due to hypotension and dehydration -IV heparin on hold for anticipated surgery GI: -Dr. Murray following for small bowel obstruction, colonic ileus. -Keep NPO. NGT intermittent wall suction -Discussed with Dr. Murray who is following. -Flagyl added for colon coverage : -Monitor renal function closely. Faulkner catheter. -Continue aggressive resuscitation -Hold IV Lasix and Aldactone ID: -Continue empiric Levaquin and Flagyl HEME: -Monitor CBC, CMP, coags -Hold IV heparin ENDO: -Electrolyte replacement per ICU protocol PROPH: -Bilateral lower extremity SCDs. IV heparin-currently on hold. IV famotidine LINES: -Utilize peripheral IVs, placed right subclavian central line Overall impression: Massive colon distention and proximal small bowel obstruction/dilation. Large fluid and electrolyte losses. Chronic systolic heart failure and non-exacerbated COPD. Small new right upper lobe infiltrate. Remains critically ill and unstable. Risk is markedly elevated due to comorbid conditions. Intubated and central line placed. Critically ill Critical care 44 mins aside from procedures. Kalin Payne MD May 21, 2017 10:23
--- NOTE | 2017-05-21 10:31 | HHI.PR ---
cc: Raleigh Murray MD Subjective Subjective Notes DAILY PROGRESS NOTE FOR SURGICAL ATTENDING, DR. RALEIGH MURRAY Intubated/Sedated Dr. Payne at bedside NAFISA Mackey at bedside Uneventful night Objective Vitals/I&O Vital Signs Date Time Temp Pulse Resp B/P (MAP) Pulse Ox O2 Delivery O2 Flow Rate FiO2 05/21/17 08:52 35 05/21/17 08:52 94 05/21/17 07:00 Mechanical Ventilator 05/21/17 06:00 60 05/21/17 04:00 97.5 18 101/58 (72) 05/20/17 10:00 15.00 Labs Laboratory Tests Test 05/20/17 11:07 05/20/17 14:25 05/20/17 16:20 05/21/17 00:20 Blood Gas Puncture Site RT RADIAL Blood Gas Patient Temperature 98.6 Blood Gas HCO3 56 Blood Gas Base Excess 30.1 Blood Gas Oxygen Saturation 98 Arterial Blood pH 7.56 Arterial Blood Partial Pressure CO2 63 Arterial Blood Partial Pressure O2 220 Arterial Blood Oxygen Content 22.2 Arterial Blood Carboxyhemoglobin 1.4 Arterial Blood Methemoglobin 0.9 Blood Gas Hemoglobin 15.9 Oxygen Delivery Device VENTILATOR Blood Gas Ventilator Setting 550/14/PEEP5 Blood Gas Inspired Oxygen 100 Phosphorus Level 2.3 25-Hydroxy Vitamin D Total 22.7 Parathyroid Hormone (Intact) 576.5 Complement C3 89 Complement C4 24 Urine Eosinophils NONE SEEN Potassium Level 3.3 Activated Partial Thromboplast Time 63.2 Test 05/21/17 05:45 05/21/17 07:25 Blood Urea Nitrogen 41 Creatinine 1.03 Random Glucose 441 Albumin 2.3 Calcium Level 8.3 Phosphorus Level 1.4 Sodium Level 148 Potassium Level 2.8 Chloride Level 97 Carbon Dioxide Level 43.9 Anion Gap 7 Estimat Glomerular Filtration Rate 86 Date/Time Source Procedure Growth Status 05/20/17 11:40 Sputum Endotracheal Gram Stain - Final Resulted 05/20/17 11:40 Sputum Endotracheal Sputum Culture Pending Resulted Radiology Last Impressions Chest X-Ray 05/20/17 0000 Signed Impressions: Service Date/Time: Saturday, May 20, 2017 10:59 - CONCLUSION: 1. Right central line, ET tube and NG tube appear to be in good position. 2. No pneumothorax. 3. Focal infiltrate left lung base. Jeff Foster MD Abdomen X-Ray 05/20/17 0000 Signed Impressions: Service Date/Time: Saturday, May 20, 2017 13:07 - CONCLUSION: 1. NG tube in the stomach. 2. Improving bowel gas pattern compared to the prior study. Jeff Foster MD Small Bowel X-Ray 05/14/17 0000 Signed Impressions: Service Date/Time: Sunday, May 14, 2017 11:20 - CONCLUSION: 1. Findings consistent with CT examination and suggestive of high grade obstruction in the distal jejunum/proximal ileum. wKaku Vences MD Abdomen/Pelvis CT 05/13/17 1005 Signed Impressions: Service Date/Time: Saturday, May 13, 2017 11:36 - CONCLUSION: 1. Mid to distal jejunal small bowel ileus with acute transition characteristic of high grade small bowel obstruction. 2. Uncomplicated colonic diverticulosis. 3. Mild ascites. 4. Uncomplicated colonic diverticulosis. Conor John MD Cardiovascular: Regular Lungs: Clear Abdomen: Non-distended, Non-tender, Other (hypoactive BS ) Extremities: Other (mild generalized edema ) Narrative Exam 4 bowel movements recorded from yesterday A/P Problem List: (1) Acute hypoxemic respiratory failure ICD Codes: J96.01 - Acute respiratory failure with hypoxia Status: Acute (2) Respiratory failure ICD Codes: J96.90 - Respiratory failure, unspecified, unspecified whether with hypoxia or hypercapnia (3) Ileus ICD Codes: K56.7 - Ileus, unspecified Status: Acute (4) DVT (deep venous thrombosis) ICD Codes: I82.409 - Acute embolism and thrombosis of unspecified deep veins of unspecified lower extremity Status: Acute (5) Atrial fibrillation ICD Codes: I48.91 - Unspecified atrial fibrillation Status: Chronic (6) Bilious vomiting with nausea ICD Codes: R11.14 - Bilious vomiting Status: Acute (7) History of CHF (congestive heart failure) ICD Codes: Z86.79 - Personal history of other diseases of the circulatory system Status: Acute (8) History of DVT (deep vein thrombosis) ICD Codes: Z86.718 - Personal history of other venous thrombosis and embolism Status: Acute (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 ICD Codes: Z79.01 - terminal make up operator (current) use of anticoagulants Status: Acute (10) COPD (chronic obstructive pulmonary disease) ICD Codes: J44.9 - Chronic obstructive pulmonary disease, unspecified (11) Cardiomyopathy ICD Codes: I42.9 - Cardiomyopathy, unspecified (12) Dyspnea ICD Codes: R06.00 - Dyspnea, unspecified (13) Hypokalemia ICD Codes: E87.6 - Hypokalemia (14) Low serum phosphorus for age ICD Codes: R79.0 - Abnormal level of blood mineral (15) Low serum magnesium level ICD Codes: E83.42 - Hypomagnesemia (16) Low magnesium level ICD Codes: R79.0 - Abnormal level of blood mineral (17) Increased PTH level ICD Codes: E34.9 - Endocrine disorder, unspecified Assessment and Plan 72 year old male with multiple medical issues; BLE DVTs; SBO -CCM following---Intubated -NGT to LIWS -Replace potassium and phosphorus -Continue TPN -+BM; abdomen soft -Will continue nonoperative management for now but will need to closely monitor Attending Statement NOTE FOR SURGICAL ATTENDING, DR. RALEIGH MURRAY Abdomen is very soft Reported 4 bowel movements yesterday About 400 cc out of NG tube Start TPN Repeat KUB in the morning Replace electrolyte abnormality . Potassium magnesium phosphorus Unsure of the significance of a elevated PTH I agree with above assessment and plan. The exam, history, and the medical decision-making described in the above note were completed with the assistance of the mid-level provider. I reviewed and agree with the findings presented. I attest that I had a [id number] encounter with the patient on the same day, and personally performed and documented my assessment and findings in the medical record. The following services were provided during this hospital visit: Chart data review, vital sign assessments/reviewing monitor data Review of consultations notes if present. Medication orders/review and/or management Ordering and/or reviewing lab tests Ordering and/or interpreting/reviewing x-rays and/or diagnostic studies Care of the patient and discussion of the patient with the care team Documentation time To help prompt me to consider important information that might be impacting today's encounter and assessment, information from prior notes written by myself or my colleagues may have been "brought forward/copy and pasted" into today's note. Problem Qualifiers (1) Respiratory failure: Emilee MartinezP/[employer] May 21, 2017 10:31 Raleigh Murray MD May 21, 2017 16:12
[2017-05-21] MEDS ORDERED: POTASSIUM PHOSPHATE INJ 30 MMOL in SODIUM CHLOR 0.9% 250 ML INJ 250 ML IV ONE (11:00)
[2017-05-21 11:02] LABS: HEMATOCRIT 42.6 % (39.0-51.0); MEAN CELL VOLUME 89.5 FL (80.0-100.0); MEAN CORPUSCULAR HEMOGLOBIN 29.4 PG (27.0-34.0); MEAN CORPUSCULAR HGB CONC 32.8 % (32.0-36.0); MEAN PLATELET VOLUME 9.1 FL (7.0-11.0); RED BLOOD COUNT 4.76 MIL/MM3 (4.50-5.90); RED CELL DISTRIBUTION WIDTH 17.4 % (11.6-17.2); WHITE BLOOD COUNT 10.2 TH/MM3 (4.0-11.0)
[2017-05-21] MEDS: LEVOFLOXACIN 750 MG PREMIX INJ 150 ML IV SCH (11:09)
[2017-05-21 11:35] LABS: PLATELET COUNT 127 TH/MM3 (150-450)
--- NOTE | 2017-05-21 12:35 | HHI.HCPN ---
Reason for visit a. To assist with evaluation and management of symptoms including: Abdominal pain, shortness of breath, debility. b. To assist medical decision maker(s) with: better understanding of current medical conditions; weighing benefits/burdens of medical treatment options; making medical treatment decisions. . Subjective/Interval History Patient was intubated and placed on mechanical ventilation 05/20/17. General surgery, Dr. Murray following. Severe ileus appears to be correcting, bowel resection postponed at this time. Patient having bowel movements, most recently this morning. Patient remains endotracheally intubated on mechanical ventilation. On CPAP trials during my visit, 30% FiO2. Bloody tinged secretions on ET tube noted. Sedated on propofol. Laboratory workup today revealing WBC 10.2, Hgb 14.0, platelet count 127. Potassium 2.8, BUN/ creatinine 41/1.03. Patient receiving Clinimix. Received telephone call from patient's cousin/healthcare surrogate Kathie Cagle Lex. Medical update provided. Goal of therapy remain aggressive, attempt medical extubation. Cousin likely to visit over the weekend. Receptive to palliative care follow-ups as patient clinical course continues to evolve. Discussed that prognosis remains guarded at this time given severe cardiopulmonary disease. However, patient condition appears stable. . Family/friend interactions See interval note. . Advance Directives Health Care Surrogate: Copy in medical record Advance Directive Specifics Date completed: 05/15/2017. . Health Care Surrogate(s): cousin Kathie Cagle Keri listed as healthcare surrogate decision maker. Alternate surrogate is cousin Deestarr Daughertyon. . Documented care wishes: Patient verbalized that in the event of being placed on life support, he would only allow 2 days and if no recovery, okay to "let him go" . Significant change in goals: Goals of therapy remain aggressive. . Objective Vital Signs Date Time Temp Pulse Resp B/P (MAP) Pulse Ox O2 Delivery O2 Flow Rate FiO2 05/21/17 11:44 100 35 05/21/17 08:52 35 05/21/17 08:52 94 35 05/21/17 08:26 98 40 05/21/17 07:00 Mechanical Ventilator 40 05/21/17 06:00 60 05/21/17 04:00 57 05/21/17 04:00 97.5 57 18 101/58 (72) 100 05/21/17 04:00 40 05/21/17 03:03 97 40 05/21/17 02:00 91 05/21/17 00:00 40 05/21/17 00:00 95.9 56 12 104/60 (75) 100 05/21/17 00:00 56 05/20/17 23:42 96 40 05/20/17 22:00 60 05/20/17 20:00 97.5 76 12 153/79 (103) 100 05/20/17 20:00 40 05/20/17 20:00 76 05/20/17 19:43 100 40 05/20/17 19:00 Mechanical Ventilator 40 05/20/17 16:56 98 50 05/20/17 16:00 98.2 60 12 116/62 (80) 97 05/20/17 16:00 60 05/20/17 16:00 50 05/20/17 14:00 74 Intake & Output 05/21/17 05/21/17 07:00 19:00 Intake Total 1318 ml Output Total 975 ml Balance 343 ml IV Total 1318 ml Output Urine Total 825 ml Gastric Drainage Total 150 ml # Bowel Movements 1 Physical Exam CONSTITUTIONAL/GENERAL: This is an adequately nourished patient, in no apparent distress. TUBES/LINES/DRAINS: ETT, OG, PIV, bilateral soft wrist restraints, Faulkner catheter. SKIN: No jaundice, rashes. Skin temperature appropriate. Not diaphoretic. Nonhealing sores to bilateral lower extremities. HEAD: Atraumatic. Normocephalic. EYES: Pupils equal and round and reactive. No scleral icterus. No injection or drainage. ENT: Nose without bleeding or purulent drainage. Moist oral mucosa. OG to suction. NECK: Trachea midline. Supple. CARDIOVASCULAR: Regular rate and rhythm. Peripheral pulses symmetric. Venous stasis to bilateral lower extremities. RESPIRATORY/CHEST: Symmetric, unlabored respirations. Coarse breath sounds bilaterally. Endotracheally intubated on mechanical ventilation. GASTROINTESTINAL: Abdomen large, round, soft. Hypoactive bowel sounds. GENITOURINARY: Without palpable bladder distension. Faulkner catheter in place. MUSCULOSKELETAL: Extremities without clubbing. Edema to bilateral lower extremities. NEUROLOGICAL: Sedated. PSYCHIATRIC: Unable to evaluate secondary to condition. . Diagnostic Tests Laboratory Laboratory Tests Test 05/19/17 06:33 05/20/17 05:35 3/6/18 07:32 05/20/17 11:07 White Blood Count 7.9 TH/MM3 (4.0-11.0) 11.3 TH/MM3 (4.0-11.0) Red Blood Count 5.41 MIL/MM3 (4.50-5.90) 5.55 MIL/MM3 (4.50-5.90) Hemoglobin 16.1 GM/DL (13.0-17.0) 16.3 GM/DL (13.0-17.0) Hematocrit 47.5 % (39.0-51.0) 48.8 % (39.0-51.0) Mean Corpuscular Volume 87.7 FL (80.0-100.0) 88.0 FL (80.0-100.0) Mean Corpuscular Hemoglobin 29.7 PG (27.0-34.0) 29.3 PG (27.0-34.0) Mean Corpuscular Hemoglobin Concent 33.8 % (32.0-36.0) 33.3 % (32.0-36.0) Red Cell Distribution Width 17.2 % (11.6-17.2) 17.1 % (11.6-17.2) Platelet Count 267 TH/MM3 (150-450) 211 TH/MM3 (150-450) Mean Platelet Volume 8.4 FL (7.0-11.0) 8.9 FL (7.0-11.0) Activated Partial Thromboplast Time 53.3 SEC (24.3-30.1) Blood Urea Nitrogen 39 MG/DL (7-18) 51 MG/DL (7-18) Creatinine 1.07 MG/DL (0.60-1.30) 1.68 MG/DL (0.60-1.30) Random Glucose 161 MG/DL (74-106) 225 MG/DL (74-106) Calcium Level 9.0 MG/DL (8.5-10.1) 9.2 MG/DL (8.5-10.1) Sodium Level 139 MEQ/L (136-145) 141 MEQ/L (136-145) Potassium Level 2.6 MEQ/L (3.5-5.1) 2.3 MEQ/L (3.5-5.1) Chloride Level 78 MEQ/L (98-107) 82 MEQ/L (98-107) Carbon Dioxide Level GREATER THAN 45.0 MEQ/L GREATER THAN 45.0 MEQ/L Anion Gap 16 MEQ/L (5-15) 14 MEQ/L (5-15) Estimat Glomerular Filtration Rate 82 ML/MIN (>89) 49 ML/MIN (>89) Neutrophils (%) (Auto) 93.2 % (16.0-70.0) Lymphocytes (%) (Auto) 1.6 % (9.0-44.0) Monocytes (%) (Auto) 5.1 % (0.0-8.0) Eosinophils (%) (Auto) 0.1 % (0.0-4.0) Basophils (%) (Auto) 0.0 % (0.0-2.0) Neutrophils # (Auto) 10.5 TH/MM3 (1.8-7.7) Lymphocytes # (Auto) 0.2 TH/MM3 (1.0-4.8) Monocytes # (Auto) 0.6 TH/MM3 (0-0.9) Eosinophils # (Auto) 0.0 TH/MM3 (0-0.4) Basophils # (Auto) 0.0 TH/MM3 (0-0.2) CBC Comment DIFF FINAL Differential Comment Total Protein 6.8 GM/DL (6.4-8.2) Albumin 2.8 GM/DL (3.4-5.0) Alkaline Phosphatase 53 U/L (45-117) Aspartate Amino Transf (AST/SGOT) 69 U/L (15-37) Alanine Aminotransferase (ALT/SGPT) 52 U/L (12-78) Total Bilirubin 1.5 MG/DL (0.2-1.0) Blood Gas Puncture Site RT RADIAL RT RADIAL Blood Gas Patient Temperature 98.6 98.6 Blood Gas HCO3 60 mmol/L (22-26) 56 mmol/L (22-26) Blood Gas Base Excess mmol/L (-2-2) 30.1 mmol/L (-2-2) Blood Gas Oxygen Saturation 85 % (90-100) 98 % (90-100) Arterial Blood pH 7.49 (7.380-7.420) 7.56 (7.380-7.420) Arterial Blood Partial Pressure CO2 79 mmHg (38-42) 63 mmHg (38-42) Arterial Blood Partial Pressure O2 54 mmHg (61-120) 220 mmHg (61-120) Arterial Blood Oxygen Content 18.9 Vol % (12.0-20.0) 22.2 Vol % (12.0-20.0) Arterial Blood Carboxyhemoglobin 1.5 % (0-4) 1.4 % (0-4) Arterial Blood Methemoglobin 0.9 % (0-2) 0.9 % (0-2) Blood Gas Hemoglobin 15.9 G/DL (12.0-16.0) 15.9 G/DL (12.0-16.0) Oxygen Delivery Device NASAL CANNULA VENTILATOR Blood Gas Liter Flow 5 L/M Blood Gas Ventilator Setting 550/14/PEEP5 Blood Gas Inspired Oxygen 100 % Test 05/20/17 14:25 05/20/17 16:20 05/21/17 00:20 05/21/17 05:45 Phosphorus Level 2.3 MG/DL (2.5-4.9) 1.4 MG/DL (2.5-4.9) 25-Hydroxy Vitamin D Total 22.7 ng/ML (30-100) Parathyroid Hormone (Intact) 576.5 PG/ML (12.4-76.8) Complement C3 89 MG/DL (90-180) Complement C4 24 MG/DL (10-40) Urine Eosinophils NONE SEEN /HPF (NONE SEEN) Potassium Level 3.3 MEQ/L (3.5-5.1) 2.8 MEQ/L (3.5-5.1) Activated Partial Thromboplast Time 63.2 SEC (24.3-30.1) Blood Urea Nitrogen 41 MG/DL (7-18) Creatinine 1.03 MG/DL (0.60-1.30) Random Glucose 441 MG/DL (74-106) Albumin 2.3 GM/DL (3.4-5.0) Calcium Level 8.3 MG/DL (8.5-10.1) Sodium Level 148 MEQ/L (136-145) Chloride Level 97 MEQ/L (98-107) Carbon Dioxide Level 43.9 MEQ/L (21.0-32.0) Anion Gap 7 MEQ/L (5-15) Estimat Glomerular Filtration Rate 86 ML/MIN (>89) Test 05/21/17 10:44 White Blood Count 10.2 TH/MM3 (4.0-11.0) Red Blood Count 4.76 MIL/MM3 (4.50-5.90) Hemoglobin 14.0 GM/DL (13.0-17.0) Hematocrit 42.6 % (39.0-51.0) Mean Corpuscular Volume 89.5 FL (80.0-100.0) Mean Corpuscular Hemoglobin 29.4 PG (27.0-34.0) Mean Corpuscular Hemoglobin Concent 32.8 % (32.0-36.0) Red Cell Distribution Width 17.4 % (11.6-17.2) Platelet Count 127 TH/MM3 (150-450) Mean Platelet Volume 9.1 FL (7.0-11.0) Activated Partial Thromboplast Time 79.3 SEC (24.3-30.1) Result Diagram: 05/21/17 1044 05/21/17 0545 Microbiology Microbiology Date/Time Source Procedure Growth Status 05/20/17 11:40 Sputum Endotracheal Gram Stain - Final Resulted 05/20/17 11:40 Sputum Endotracheal Sputum Culture - Preliminary HEAVY GROWTH NORMAL RESPIRATORY DARCIE... Resulted Imaging Last 48 hours Impressions Chest X-Ray 05/20/17 0000 Signed Impressions: Service Date/Time: Saturday, May 20, 2017 10:59 - CONCLUSION: 1. Right central line, ET tube and NG tube appear to be in good position. 2. No pneumothorax. 3. Focal infiltrate left lung base. Jeff Foster MD Abdomen X-Ray 05/20/17 0000 Signed Impressions: Service Date/Time: Saturday, May 20, 2017 13:07 - CONCLUSION: 1. NG tube in the stomach. 2. Improving bowel gas pattern compared to the prior study. Jeff Foster MD Procedures * 05/20/17 -endotracheally intubated . Assessment and Plan Disease Oriented Problem List: (1) Acute hypoxemic respiratory failure (2) Small bowel obstruction (3) COPD (chronic obstructive pulmonary disease) (4) Systolic heart failure (5) Cardiomyopathy (6) Leg ulcer, left Symptom Scale: (1) Abdominal pain 0-10 Scale: Unable to quantify (2) Dyspnea 0-10 Scale: Unable to quantify Pertinent Non-Medical Issues Psychosocial: Patient is single, never . No children. [employer] , disabled secondary to PTSD. Patient was born and raised in [place]. Highest level of education is high school. Patient has 2 siblings in the area, one cousin that lives in [place]. Spiritual: No buddhist affiliation. Legal: Advance directives completed. Ethical issues impacting care: No ethical issues identified. . Important Contacts HCS/cousin Kathie Saavedra . Alternate surrogate/cousin Dee Taylor . . Prognosis Mr. Rocha is a 72-year-old male with a medical history significant for CHF, COPD, atrial fibrillation, medication noncompliance. Patient with significant progression of cardiopulmonary disease. He is O2 dependent, EF of 20%. Patient admitted for small bowel obstruction, somewhat improving. However, patient remains at high risk for further complications, continued decline and . Patient appears hospice appropriate should he elects comfort-directed care given significant cardiopulmonary disease. . Code Status: Full Code Plan * CODE STATUS: Full code. * HEALTHCARE DECISION-MAKING: Patient unable to participating medical decision making at this time secondary to clinical condition, sedated, intubated. Advance directives completed. Patient has designated is helensin Kathie Saavedra as healthcare surrogate decision maker, alternate is cousin Dee Taylor. * GOALS OF CARE: Patient previously electing to pursue aggressive management to include FULL code. Healthcare surrogate/cousin Kathie Saavedra supportive of patient's wishes. Goals remain aggressive, attempt medical extubation when tolerated. Family wishing to allow a few more days for clinical improvement. * SYMPTOMS: = Abdominal pain, secondary to SBO. General surgery following. Plan for bowel resection canceled at this time as obstruction seems to be correcting. = Shortness of breath: Secondary to COPD, CHF exacerbation. Currently intubated on mechanical ventilation. = Debility: chronic. Rehabilitation was recommended during prior admission, patient declined. PT following during this admission, home with home health recommended. * Palliative care contact information has been provided to patient and family. * Palliative care will continue to follow up as needed for further clarification of goals of care as patient's clinical course continues to evolve. . Time Spent Total Floor Time (mins): 23 (Total time to include review of medical records, physical exam, telephone conversation with patient's healthcare surrogate.) >50% Counseling/Coord of Care: Yes Attestation To help prompt me to consider important information that might be impacting today's encounter and assessment, information from prior notes written by myself or my colleagues may have been "brought forward" into today's note. My signature on this note, however, is an attestation that I personally performed the exam, history, and/or decision-making noted today, and, unless otherwise indicated, the interactions with patient, family, and staff as well as the review of records all occurred today. I also attest that the listed assessment and stated plan reflect my best clinical judgment today based on the combination of historical information, prior notes, and today's exam/ interactions. When time spent is documented, it refers only to time spent today by the signer, or if indicated, combined time spent today by collaborating physician/nurse practitioner. Areli Dunaway May 21, 2017 12:35
[2017-05-21] MEDS ORDERED: DEXTROSE 50% IN WATER 50 ML VIAL(D50) IV PUSH PRN (12:45)
[2017-05-21] MEDS ORDERED: GLUCAGON 1 MG/ML VIAL OTHER PRN (12:45)
[2017-05-21] MEDS: INSULIN ASPART SUPPLEMENTAL SCALE SQ SCH ×2 (14:33→18:43)
[2017-05-21] MEDS: INSULIN DETEMIR 100 UNITS/ML VIAL SQ SCH ×2 (14:33→20:09)
[2017-05-21] MEDS: HEPARIN-D5W 25,000 U/250 ML 250 ML IV PRN (14:49)
--- NOTE | 2017-05-21 15:42 | HHI.NPPN ---
Subjective History of Present Illness The patient is a 72 yo AA male who presented to this facility on 05/13 with complaints of nausea and vomiting. Was diagnosed with SBO and treated via NG tube. He was tranferred to ICU on 05/14 for ARDS related to CHF exacerbation and was treated with IV Lasix and transferred back to the main floor on 05/16. On 05/20, was diagnosed with ischemic large bowel and was transferred back to ICU for ARF, hypokalemia, and potential prep for colon resection. At consult, SCr 1.68 with eGFR 49 (baseline renal functions appear to be normal with SCr 0.7-0.8). He has a severe cardiomyopathy with EF of only 20% Interval History Patient remains intubated on ventilator support Review of Systems General General Remarks Unobtainable. Objective Data Data 05/21/17 05/22/17 19:00 07:00 Intake Total 1500 ml Balance 1500 ml IV Total 1500 ml Vital Signs Date Time Temp Pulse Resp B/P (MAP) Pulse Ox O2 Delivery O2 Flow Rate FiO2 05/21/17 14:15 94 35 05/21/17 14:00 61 05/21/17 12:00 40 05/21/17 12:00 62 05/21/17 11:44 100 35 05/21/17 10:00 70 05/21/17 08:52 35 05/21/17 08:52 94 35 05/21/17 08:30 40 05/21/17 08:26 98 40 05/21/17 08:00 40 05/21/17 08:00 58 05/21/17 07:00 Mechanical Ventilator 40 05/21/17 06:00 60 05/21/17 04:00 57 05/21/17 04:00 97.5 57 18 101/58 (72) 100 05/21/17 04:00 40 05/21/17 03:03 97 40 05/21/17 02:00 91 05/21/17 00:00 40 05/21/17 00:00 95.9 56 12 104/60 (75) 100 05/21/17 00:00 56 05/20/17 23:42 96 40 05/20/17 22:00 60 05/20/17 20:00 97.5 76 12 153/79 (103) 100 05/20/17 20:00 40 05/20/17 20:00 76 05/20/17 19:43 100 40 05/20/17 19:00 Mechanical Ventilator 40 05/20/17 16:56 98 50 05/20/17 16:00 98.2 60 12 116/62 (80) 97 05/20/17 16:00 60 05/20/17 16:00 50 -: 05/21/17 1044 05/21/17 0545 Physical Exam General Appearance: No Acute Distress, Comfortable, Malnourished Eyes Eye Exam: Sclera White Pulmonary Resp Exam: Clear Bilaterally, Breath Sounds Equal Cardiology CV Exam: Regular Gastrointestinal/Abdomen GI Exam: Soft, Non-Tender Integumentary Skin Exam: Warm Assessment/Plan Problem List: (1) Acute renal insufficiency ICD Codes: N28.9 - Disorder of kidney and ureter, unspecified Plan: Potentially related to hemodynamic factors and aggressive diuretic use in setting of SBO and high gastric output. Improved. Medications should be adjusted for the patient's renal insufficiency. Avoid nephrotoxins such as iodinated contrast dyes and NSAIDs Avoid gadolinium when eGFR <30. (2) Hypokalemia ICD Codes: E87.6 - Hypokalemia Plan: Repletion ordered (3) Alkalosis ICD Codes: E87.3 - Alkalosis Plan: Secondary to gastrointestinal fluid losses with associated hypokalemia. Continue with potassium supplementation as well as IV hydration. Hopefully acid base status will improve as bowel function improves. (4) Cardiomyopathy ICD Codes: I42.9 - Cardiomyopathy, unspecified Plan: Reported EF of 20% (5) COPD (chronic obstructive pulmonary disease) ICD Codes: J44.9 - Chronic obstructive pulmonary disease, unspecified (6) Atrial fibrillation ICD Codes: I48.91 - Unspecified atrial fibrillation Status: Chronic (7) Small bowel obstruction ICD Codes: K56.609 - Unspecified intestinal obstruction, unspecified as to partial versus complete obstruction Status: Acute Misti Antonio MD May 21, 2017 15:42
[2017-05-21] MEDS ORDERED: POTASSIUM CHLORIDE INJ 20 MEQ in SODIUM CHLOR 0.45% 1000 ML INJ 1,000 ML IV SCH (16:00)
--- NOTE | 2017-05-21 16:50 | HHI.PR ---
Subjective Remarks ON THE VENT SUPPORT NOW Objective Vital Signs Date Time Temp Pulse Resp B/P (MAP) Pulse Ox O2 Delivery O2 Flow Rate FiO2 05/21/17 16:38 97 35 05/21/17 14:15 94 35 05/21/17 14:00 61 05/21/17 12:00 40 05/21/17 12:00 62 05/21/17 11:44 100 35 05/21/17 10:00 70 05/21/17 08:52 35 05/21/17 08:52 94 35 05/21/17 08:30 40 05/21/17 08:26 98 40 05/21/17 08:00 40 05/21/17 08:00 58 05/21/17 07:00 Mechanical Ventilator 40 05/21/17 06:00 60 05/21/17 04:00 57 05/21/17 04:00 97.5 57 18 101/58 (72) 100 05/21/17 04:00 40 05/21/17 03:03 97 40 05/21/17 02:00 91 05/21/17 00:00 40 05/21/17 00:00 95.9 56 12 104/60 (75) 100 05/21/17 00:00 56 05/20/17 23:42 96 40 05/20/17 22:00 60 05/20/17 20:00 97.5 76 12 153/79 (103) 100 05/20/17 20:00 40 05/20/17 20:00 76 05/20/17 19:43 100 40 05/20/17 19:00 Mechanical Ventilator 40 05/20/17 16:56 98 50 I/O 05/20/17 05/20/17 05/20/17 05/21/17 05/21/17 05/21/17 07:00 15:00 23:00 07:00 15:00 23:00 Intake Total 3400 ml 676 ml 1264 ml 1500 ml Output Total 1425 ml 975 ml Balance 3400 ml -749 ml 289 ml 1500 ml IV Total 3400 ml 676 ml 1264 ml 1500 ml Output Urine Total 625 ml 825 ml Gastric Drainage Total 800 ml 150 ml # Bowel Movements 3 1 Result Diagram: 05/21/17 1044 05/21/17 0545 Objective Remarks GENERAL: sedated on ventilator SKIN: Warm and dry. HEAD: Atraumatic. Normocephalic. EYES: Pupils equal and round. No scleral icterus. No injection or drainage. ENT: No nasal bleeding or discharge. Mucous membranes pink and moist. NECK: Trachea midline. No JVD. CARDIOVASCULAR: Regular rate and rhythm. RESPIRATORY: No accessory muscle use. Clear to auscultation. Breath sounds equal bilaterally. GASTROINTESTINAL: Abdomen soft, non-tender, nondistended. Hepatic and splenic margins not palpable. MUSCULOSKELETAL: Extremities without clubbing, cyanosis, or edema. No obvious deformities. NEUROLOGICAL: Awake and alert. No obvious cranial nerve deficits. Motor grossly within normal limits. Five out of 5 muscle strength in the arms and legs. Normal speech. PSYCHIATRIC: Appropriate mood and affect; insight and judgment normal. Assessment and Plan Assessment and Plan assessment respiratory failure bowel obstruction ? PNA COPD CHF HTN HLD PLAN VENT SUPPORT ANTIBX PULM TOILET SURGERY FOLLOWING Tania Marin MD May 21, 2017 16:50
[2017-05-21 17:50] LABS: BICARBONATE 43.2 MEQ/L (21.0-32.0); CALCIUM 8.2 MG/DL (8.5-10.1); CREATININE 0.79 MG/DL (0.60-1.30)
[2017-05-21] MEDS: POTASSIUM CHLOR 40 MEQ PREMIX 100 ML IV SCH ×2 (18:17→20:21)
[2017-05-21] MEDS ORDERED: 1/2 NS + KCL 20 MEQ INJ 1,000 ML IV SCH (18:30)
[2017-05-21] MEDS: POTASSIUM CHLORIDE INJ 20 MEQ in SODIUM CHLOR 0.45% 1000 ML INJ 1,000 ML IV SCH (18:50)
--- NOTE | 2017-05-21 22:02 | PD.PROCEDR ---
Central Line Procedure REASON FOR PROCEDURE Central venous access PROCEDURE PERFORMED Central line placement: Right subclavian central line CONSENT Informed consent for procedure was obtained from patient prior to intubation ANESTHESIA Local injection of 1% Lidocaine DESCRIPTION OF THE PROCEDURE The patient was placed in supine, mild Trendelenburg position. The area was exposed and cleansed with ChloraPrep, times two. Large sterile drape was used to cover the patient, with the site exposed, under sterile conditions including cap, face mask, sterile gown, and sterile gloves. On single attempt, the introducer needle was inserted with negative pressure in syringe and venous flash was obtained. The guide wire was then advanced without any restriction and the needle was removed. The dilator was used without any complications. Using Seldinger technique the 20CM 7F triple lumen catheter was advanced over the guide wire to a depth of 18 centimeters. The guide wire was removed. All ports were aspirated with dark venous blood return and flushed easily with sterile saline. All ports were capped. Antibiotic disc was placed around central line at puncture site. The central line was secured to the skin with two interrupted 2.0 silk sutures (A stat loc was not used to diaphoretic skin and planned trip to [place] increasing risk of dislodgement). The area was bandaged with sterile see-through central line bandage. COMPLICATIONS: No apparent complications ESTIMATED BLOOD LOSS: Less than 1 cc. Ирина Currie MD May 21, 2017 22:02
[2017-05-22] VITALS (16 sets, daily range): BP systolic 93–178; BP diastolic 58–79; PULSE 60–80; RESP 13–24; TEMP 96.5–98.2; O2SAT 92–100
[2017-05-22] MEDS: methylPREDNISolone SOD SUCC 125 MG/2 ML VIAL IV PUSH SCH ×3 (00:17→12:18)
[2017-05-22] MEDS: METOCLOPRAMIDE HCL 10 MG/2 ML VIAL IV PUSH SCH ×6 (04:00→21:59)
[2017-05-22] MEDS: POTASSIUM CHLORIDE INJ 20 MEQ in SODIUM CHLOR 0.45% 1000 ML INJ 1,000 ML IV SCH ×2 (04:00→13:09)
[2017-05-22] MEDS: metroNIDAZOLE 500 MG INJ 100 ML IV SCH ×2 (04:00→09:00)
[2017-05-22] MEDS: INSULIN ASPART SUPPLEMENTAL SCALE SQ SCH ×4 (05:35→18:14)
[2017-05-22 06:16] LABS: BICARBONATE 39.3 MEQ/L (21.0-32.0); CALCIUM 7.5 MG/DL (8.5-10.1); CREATININE 0.73 MG/DL (0.60-1.30)
[2017-05-22 06:17] LABS: ALBUMIN 1.9 GM/DL (3.4-5.0); BICARBONATE 39.3 MEQ/L (21.0-32.0); CALCIUM 8.2 MG/DL (8.5-10.1); CREATININE 0.69 MG/DL (0.60-1.30); MAGNESIUM 3.1 MG/DL (1.5-2.5); PHOSPHORUS 0.5 MG/DL (2.5-4.9)
--- NOTE | 2017-05-22 06:35 | RADRPT ---
EXAM DATE/TIME: 05/22/2017 05:16 [facility] COMPARISON: CHEST SINGLE AP, May 20, 2017, 10:59. INDICATIONS : Respiratory disease. MEDICAL HISTORY : Hypertension. Chronic obstructive pulmonary disease. Cardiovascular disease. SURGICAL HISTORY : None. ENCOUNTER: Subsequent ACUITY: 1 week PAIN SCORE: Non-responsive. LOCATION: Bilateral chest FINDINGS: Portable AP view of the chest demonstrates a normal-sized cardiac silhouette. ETT and nasogastric tub e remain present and right subclavian central line tip is in the SVC. Multiple EKG lines overlie the patient. There are mild bibasilar opacities. No pleural effusion or pneumothorax is appreciated. The bones and soft tissues demonstrate no acute finding. CONCLUSION: Stable chest x-ray with mild bibasilar airspace opacity representing either atelectasis or consolidat ion. Kush Catalan MD on May 22, 2017 at 6:33 Board Certified Radiologist. This report was verified electronically.
[2017-05-22 07:08] LABS: HEMATOCRIT 43.6 % (39.0-51.0); HEMOGLOBIN 13.9 GM/DL (13.0-17.0); MEAN CELL VOLUME 90.5 FL (80.0-100.0); MEAN CORPUSCULAR HEMOGLOBIN 28.9 PG (27.0-34.0); MEAN PLATELET VOLUME 9.6 FL (7.0-11.0); RED BLOOD COUNT 4.82 MIL/MM3 (4.50-5.90); RED CELL DISTRIBUTION WIDTH 17.1 % (11.6-17.2)
[2017-05-22 07:47] LABS: PLATELET COUNT 116 TH/MM3 (150-450); WHITE BLOOD COUNT 15.2 TH/MM3 (4.0-11.0)
[2017-05-22 07:54] LABS: LYMPHOCYTES 3 % (9-44); MONOCYTES 2 % (0-8); NEUTROPHIL # MANUAL DIFF 14.4 TH/MM3 (1.8-7.7); POLYS (SEG NEUTROPHILS) 95 % (16-70)
[2017-05-22] MEDS: CHLORHEXIDINE 0.12% (ORAL KIT) 15 ML CUP MT SCH ×2 (08:00→20:08)
[2017-05-22] MEDS: BISACODYL 10 MG SUPP RECTAL SCH (08:58)
[2017-05-22] MEDS: DOCUSATE SODIUM 100 MG CAP PO SCH ×2 (08:58→21:00)
[2017-05-22] MEDS: SODIUM CHLORIDE 0.9% FLUSH 10 ML FLUSH IV FLUSH SCH ×2 (08:58→21:56)
[2017-05-22] MEDS: INSULIN DETEMIR 100 UNITS/ML VIAL SQ SCH ×2 (08:59→21:56)
[2017-05-22] MEDS: COLLAGENASE OINT 30 GM TUBE TOPICAL SCH (08:59)
[2017-05-22] MEDS ORDERED: POTASSIUM PHOSPHATE MONOBASIC 500 MG TAB PO PRN (09:15)
[2017-05-22] MEDS ORDERED: MAGNESIUM OXIDE 400 MG TAB PO PRN (09:15)
[2017-05-22] MEDS ORDERED: POTASSIUM CHLORIDE 25 MEQ EFFERVESCENT TAB PO PRN (09:15)
[2017-05-22] MEDS ORDERED: POTASSIUM PHOSPHATE MONOBASIC 500 MG TAB PO/TUBE PRN (09:15)
[2017-05-22] MEDS ORDERED: POTASSIUM PHOSPHATE INJ 30 MMOL in SODIUM CHLOR 0.9% 250 ML INJ 250 ML IV PRN (09:15)
[2017-05-22] MEDS ORDERED: MAGNESIUM SULFATE INJ 4 GM in SODIUM CHLORIDE 0.9% INJ 92 ML IV PRN (09:15)
[2017-05-22] MEDS ORDERED: MAGNESIUM SULFATE INJ 2 GM in SODIUM CHLORIDE 0.9% INJ 96 ML IV PRN (09:15)
[2017-05-22] MEDS ORDERED: POTASSIUM CHLOR 20 MEQ PREMIX 100 ML IV PRN ×2 (09:15)
[2017-05-22] MEDS ORDERED: POTASSIUM CHLOR 40 MEQ PREMIX 100 ML IV PRN ×2 (09:15)
[2017-05-22] MEDS: SODIUM PHOSPHATE INJ 30 MMOL in SODIUM CHLOR 0.9% 250 ML INJ 240 ML IV PRN (09:42)
[2017-05-22] MEDS: CLINIMIX 4.25/25 (Cust.Renal Central) 1000 mL- </= 42 mls/hr IV-CENTRAL SCH ×16 (09:44→22:01)
[2017-05-22] MEDS: LORazepam 2 MG/ML VIAL IV PRN (10:29)
--- NOTE | 2017-05-22 10:43 | RADRPT ---
EXAM DATE/TIME: 05/22/2017 10:04 [facility] COMPARISON: ABDOMEN FLAT & UPRIGHT, May 18, 2017, 16:24. INDICATIONS : Ileus. MEDICAL HISTORY : None. SURGICAL HISTORY : None. ENCOUNTER: Subsequent ACUITY: 1 week PAIN SCORE: Non-responsive. LOCATION: Abdomen. FINDINGS: Supine and upright views of the abdomen were performed. The abdominal bowel gas pattern is now withi n normal limits. The previously noted dilated loops of resolved. There is an NG tube in the stomach. There is some air seen within the colon which is nondilated. There is some stool within the colon. Th e bony structures are stable.. CONCLUSION: The previously noted dilated small bowel have resolved. NG tube in the stomach. Jeff Foster MD on May 22, 2017 at 10:40 Board Certified Radiologist. This report was verified electronically.
[2017-05-22] MEDS: PROPOFOL 1000 MG/100 ML INJ 100 ML IV PRN ×3 (10:54→22:58)
[2017-05-22] MEDS: LEVOFLOXACIN 750 MG PREMIX INJ 150 ML IV SCH (12:18)
[2017-05-22 13:03] LABS: HEMATOCRIT 40.7 % (39.0-51.0); HEMOGLOBIN 13.2 GM/DL (13.0-17.0)
--- NOTE | 2017-05-22 13:23 | HHI.CCPN ---
Subjective Remarks/Hospital Course Patient is a 72-year-old -[place] male with past medical history significant for COPD on home oxygen, chronic systolic heart failure EF 20-25%, chronic atrial fibrillation, bilateral lower extremity DVT on Coumadin, who was admitted to the hospitalist service on 05/13/2017 with history of nausea, vomiting with no diarrhea, not passing gas or stools for last 2 days. ER workup which included a CT of the abdomen pelvis showed small bowel obstruction which was high-grade. General surgery was consulted and patient was admitted to the floor. He was kept n.p.o. and NGT was placed. He was placed on a heparin drip for subtherapeutic INR. Today Halicat was called as patient became acutely hypoxemic. His O2 saturation went down to low 70s and was placed on 100% nonrebreather. Stat chest x-ray showed increasing interstitial edema and pulmonary vascular congestion indicating a CHF exacerbation. I evaluated the patient in the ICU. He is in a moderate respiratory distress currently on 100% nonrebreather. Physical exam revealed elevated JVD and bibasilar crackles. It appears that patient has acute systolic heart failure exacerbation. I will give IV Lasix 40 mg 1 now and scheduled 40 every 12. If his condition does not improve with the above measures patient may need endotracheal intubation, he is not a candidate for BiPAP due to significant small bowel obstruction and risk of aspiration. SB series is pending at this time, and Dr. Murray thinks it is ileus. Start IV Reglan, keep K>4 SUBJ 05/15/17: Remains on partial nonrebreather desaturates when placed on Ventimask 50%. He claims that he is breathing more comfortably. With IV Lasix made 1 L urine overnight. Started on Reglan yesterday ileus persist. Increase Reglan to 10 mg every 8. Small bowel series showing high grade obstruction. 05/16: Supplemental O2 down to 5 liters. Bowel is opening up, no surgery planned. Transfer. 05/20: Patient has developed what appears to be complete colon obstruction with severe dilation extending into small bowel. Now dehydrated with prerenal azotemia and electrolyte imbalance. We will bring him to the ICU, intubate, hydrate, place NG tube, correct electrolytes and generally maximize his physiological status as best as can be accomplished for a patient with COPD and baseline EF 25%. He requires laparotomy and colon resection for probable ischemic bowel. Patient agrees to surgery and wants continued aggressive care. I intubated patient after arrival to ICU and placed central line. Aggressive resuscitation started. Discussed with general surgery. Also has severe hypokalemia, potassium is 2.3 05/21: Patient having BMs. Abdomen soft, will continue to decompress from above. 05/22: BMs persist. Bowel gas resolving. Cardiopulmonary status critical. Objective Vital Signs Date Time Temp Pulse Resp B/P (MAP) Pulse Ox O2 Delivery O2 Flow Rate FiO2 05/22/17 12:45 35 05/22/17 11:46 98 05/22/17 10:00 80 05/22/17 08:00 97.9 23 136/76 (96) 05/22/17 07:00 Mechanical Ventilator 05/20/17 10:00 15.00 Intake and Output 05/22/17 05/22/17 05/23/17 08:00 16:00 00:00 Output Total 1250 ml Balance -1250 ml Result Diagram: 05/22/17 1200 05/22/17 0520 Other Results Microbiology Date/Time Source Procedure Growth Status 05/20/17 11:40 Sputum Endotracheal Gram Stain - Final Complete 05/20/17 11:40 Sputum Endotracheal Sputum Culture - Final HEAVY GROWTH NORMAL RESPIRATORY DARCIE Complete Imaging Chest x-ray shows bilateral pulmonary vascular congestion and atelectasis Objective Remarks GENERAL: Ill-appearing male. SKIN: warm/dry. HEAD: Atraumatic. Normocephalic. EYES: No scleral icterus. No injection or drainage. ENT: No nasal bleeding or discharge. Mucous membranes dry NECK: Trachea midline. Supple. Neck veins full. CARDIOVASCULAR: S1-S2, no m,r. Irregular RESPIRATORY: Breath sounds equal bilaterally with few basilar fine crackles, no wheezes. GASTROINTESTINAL: Abdomen soft moderately distended. Less tenderness, BS present. MUSCULOSKELETAL: No edema. Bilateral chronic venous normal when light. Well perfused. NEURO: Opens eyes, moves 4 limbs. A/P Assessment and Plan ASSESSMENT: Acute hypoxemic respiratory failure Colonic ileus, small bowel obstruction Severe hypokalemia Chronic systolic heart failure exacerbation COPD Cardiomyopathy EF 20-25% COPD on home oxygen Bilateral DVT Chronic atrial fibrillation Malnutrition Hemoptysis. PLAN: NEURO: -Post intubation propofol for sedation and vent synchrony -Avoid opiates due to ileus -Propofol sedation RESP: -CPAP trials. -Intubated and placed on mechanical ventilation for hypoxemia and to facilitate resuscitation -Vent bundle. DuoNeb every 4 hours scheduled and as needed -Solu-Medrol 60 every 6 hours, hold prednisone -> decrease -Empiric Levaquin for COPD exacerbation CV: -Restart Lasix. Hold Aldactone -Taper levophed to keep map above 65 -Chest x-ray previously showed worsening interstitial edema -Currently on Coreg and Cardizem and lisinopril for CHF and A. fib-hold due to hypotension and dehydration -d/c heparin due to hemoptysis GI: -Dr. Murray following for small bowel obstruction, colonic ileus. -Keep NPO. NGT intermittent wall suction -Discussed with Dr. Murray who is following. -Flagyl added for colon coverage : -Monitor renal function closely. Faulkner catheter. -Continue aggressive resuscitation -Hold IV Lasix and Aldactone ID: -Continue empiric Levaquin and Flagyl HEME: -Monitor CBC, CMP, coags -Hold IV heparin ENDO: -Electrolyte replacement per ICU protocol PROPH: -Bilateral lower extremity SCDs. IV heparin-currently on hold. IV famotidine LINES: -Utilize peripheral IVs, placed right subclavian central line Overall impression: Critically ill with hemoptysis and systolic heart failure. Resolving massive colon distention and proximal small bowel obstruction/ dilation. Large fluid and electrolyte losses. Chronic systolic heart failure and non-exacerbated COPD. Small new right upper lobe infiltrate. Remains critically ill and unstable. Risk is markedly elevated due to comorbid conditions. Intubated and central line placed. Critically ill Critical care 39 mins Kalin Payne MD May 22, 2017 13:23
[2017-05-22] MEDS: methylPREDNISolone SOD SUCC 40 MG/1 ML VIAL IV PUSH SCH ×2 (13:57→22:01)
[2017-05-22] MEDS: FUROSEMIDE 40 MG/4 ML VIAL IV PUSH SCH (14:00)
--- NOTE | 2017-05-22 14:05 | HHI.PR ---
cc: Raleigh Murray MD Subjective Subjective Notes DAILY PROGRESS NOTE FOR SURGICAL ATTENDING, DR. RALEIGH MURRAY Intubated/Sedated NAFISA Jerez reported patient had hemoptysis and coffee ground output from NGT--- Heparin gtt on hold Objective Vitals/I&O Vital Signs Date Time Temp Pulse Resp B/P (MAP) Pulse Ox O2 Delivery O2 Flow Rate FiO2 05/22/17 12:45 35 05/22/17 12:00 98.1 74 24 100/58 (72) 97 05/22/17 07:00 Mechanical Ventilator 05/20/17 10:00 15.00 Labs Laboratory Tests Test 05/21/17 16:55 05/22/17 05:20 05/22/17 06:00 05/22/17 12:00 Activated Partial Thromboplast Time 67.5 26.3 23.7 Blood Urea Nitrogen 33 29 Creatinine 0.79 0.69 Random Glucose 261 290 Calcium Level 8.2 8.2 Sodium Level 150 149 Potassium Level 2.7 3.7 Chloride Level 104 109 Carbon Dioxide Level 43.2 39.3 Anion Gap 3 1 Estimat Glomerular Filtration Rate 117 136 Albumin 1.9 Phosphorus Level 0.5 Magnesium Level 3.1 White Blood Count 15.2 Red Blood Count 4.82 Hemoglobin 13.9 13.2 Hematocrit 43.6 40.7 Mean Corpuscular Volume 90.5 Mean Corpuscular Hemoglobin 28.9 Mean Corpuscular Hemoglobin Concent 32.0 Red Cell Distribution Width 17.1 Platelet Count 116 Mean Platelet Volume 9.6 CBC Comment AUTO DIFF Differential Total Cells Counted 100 Neutrophils % (Manual) 95 Lymphocytes % 3 Monocytes % 2 Neutrophils # (Manual) 14.4 Differential Comment FINAL DIFF MANUAL Platelet Estimate LOW Platelet Morphology Comment CLUMPED Red Cell Morphology Comment NORMAL Date/Time Source Procedure Growth Status 05/20/17 11:40 Sputum Endotracheal Gram Stain - Final Complete 05/20/17 11:40 Sputum Endotracheal Sputum Culture - Final HEAVY GROWTH NORMAL RESPIRATORY DARCIE Complete Radiology Last Impressions Chest X-Ray 05/22/17 0600 Signed Impressions: Service Date/Time: May 05:16 - CONCLUSION: Stable chest x-ray with mild bibasilar airspace opacity representing either atelectasis or consolidation. Kush Catalan MD Abdomen X-Ray 05/22/17 0600 Signed Impressions: Service Date/Time: May 10:04 - CONCLUSION: The previously noted dilated small bowel have resolved. NG tube in the stomach. Jeff Foster MD Small Bowel X-Ray 05/14/17 0000 Signed Impressions: Service Date/Time: Sunday, May 14, 2017 11:20 - CONCLUSION: 1. Findings consistent with CT examination and suggestive of high grade obstruction in the distal jejunum/proximal ileum. Kwaku Vences MD Abdomen/Pelvis CT 05/13/17 1005 Signed Impressions: Service Date/Time: Saturday, May 13, 2017 11:36 - CONCLUSION: 1. Mid to distal jejunal small bowel ileus with acute transition characteristic of high grade small bowel obstruction. 2. Uncomplicated colonic diverticulosis. 3. Mild ascites. 4. Uncomplicated colonic diverticulosis. Conor John MD Cardiovascular: Regular Lungs: Clear Abdomen: Non-distended, Non-tender Extremities: No edema A/P Problem List: (1) Ileus ICD Codes: K56.7 - Ileus, unspecified Status: Acute (2) Acute hypoxemic respiratory failure ICD Codes: J96.01 - Acute respiratory failure with hypoxia Status: Acute (3) Respiratory failure ICD Codes: J96.90 - Respiratory failure, unspecified, unspecified whether with hypoxia or hypercapnia (4) DVT (deep venous thrombosis) ICD Codes: I82.409 - Acute embolism and thrombosis of unspecified deep veins of unspecified lower extremity Status: Acute (5) Atrial fibrillation ICD Codes: I48.91 - Unspecified atrial fibrillation Status: Chronic (6) Bilious vomiting with nausea ICD Codes: R11.14 - Bilious vomiting Status: Acute (7) History of CHF (congestive heart failure) ICD Codes: Z86.79 - Personal history of other diseases of the circulatory system Status: Acute (8) History of DVT (deep vein thrombosis) ICD Codes: Z86.718 - Personal history of other venous thrombosis and embolism Status: Acute (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 ICD Codes: Z79.01 - computer terminal operator (current) use of anticoagulants Status: Acute (10) COPD (chronic obstructive pulmonary disease) ICD Codes: J44.9 - Chronic obstructive pulmonary disease, unspecified (11) Cardiomyopathy ICD Codes: I42.9 - Cardiomyopathy, unspecified (12) Dyspnea ICD Codes: R06.00 - Dyspnea, unspecified (13) Hypokalemia ICD Codes: E87.6 - Hypokalemia (14) Low serum phosphorus for age ICD Codes: R79.0 - Abnormal level of blood mineral (15) Low serum magnesium level ICD Codes: E83.42 - Hypomagnesemia (16) Low magnesium level ICD Codes: R79.0 - Abnormal level of blood mineral (17) Increased PTH level ICD Codes: E34.9 - Endocrine disorder, unspecified Assessment and Plan 72 year old male with multiple medical issues; BLE DVTs; SBO -CCM following---Intubated ---possible extubation tomorrow -NGT to LIWS ---coffee ground output -Heparin on hold due to hemoptysis and coffee ground output from NGT -Continue to monitor electrolytes -Continue TPN -+BM; abdomen soft -Will continue nonoperative management for now but will need to closely monitor -Discussed with Dr. Payne Attending Statement NOTE FOR SURGICAL ATTENDING, DR. RALEIGH MURRAY having bowel movements now abd soft close to extubation Correcting electrolyte abnormality Discussed with Dr. Muñoz intensive care I agree with above assessment and plan. The exam, history, and the medical decision-making described in the above note were completed with the assistance of the mid-level provider. I reviewed and agree with the findings presented. I attest that I had a [id number] encounter with the patient on the same day, and personally performed and documented my assessment and findings in the medical record. The following services were provided during this hospital visit: Chart data review, vital sign assessments/reviewing monitor data Review of consultations notes if present. Medication orders/review and/or management Ordering and/or reviewing lab tests Ordering and/or interpreting/reviewing x-rays and/or diagnostic studies Care of the patient and discussion of the patient with the care team Documentation time To help prompt me to consider important information that might be impacting today's encounter and assessment, information from prior notes written by myself or my colleagues may have been "brought forward/copy and pasted" into today's note. Problem Qualifiers (1) Respiratory failure: Emilee Martinez HEAD GREENSKEEPER/Chaplain Resident HEAD GREENSKEEPER May 22, 2017 14:05 Raleigh Murray MD May 22, 2017 14:56
--- NOTE | 2017-05-22 14:45 | HHI.PR ---
Subjective Remarks ON THE VENT sedated Objective Vital Signs Date Time Temp Pulse Resp B/P (MAP) Pulse Ox O2 Delivery O2 Flow Rate FiO2 05/22/17 14:00 74 05/22/17 12:45 35 05/22/17 12:00 98.1 74 24 100/58 (72) 97 05/22/17 12:00 35 05/22/17 12:00 74 05/22/17 11:46 98 35 05/22/17 10:00 80 05/22/17 08:11 98 35 05/22/17 08:00 60 05/22/17 08:00 97.9 60 23 136/76 (96) 97 05/22/17 08:00 35 05/22/17 07:00 Mechanical Ventilator 35 05/22/17 06:00 68 05/22/17 04:00 40 05/22/17 04:00 97.5 80 15 178/79 (112) 100 05/22/17 04:00 80 05/22/17 02:55 92 35 05/22/17 02:00 80 05/22/17 00:08 92 35 05/22/17 00:00 40 05/22/17 00:00 96.5 62 14 131/72 (91) 93 05/22/17 00:00 62 05/21/17 22:00 72 05/21/17 20:54 98 35 05/21/17 20:00 86 05/21/17 20:00 40 05/21/17 20:00 97.0 86 12 155/92 (113) 97 05/21/17 19:00 Mechanical Ventilator 40 05/21/17 18:00 65 05/21/17 16:38 97 35 05/21/17 16:00 96.9 54 12 106/59 (75) 92 05/21/17 16:00 40 05/21/17 16:00 68 I/O 05/21/17 05/21/17 05/21/17 05/22/17 05/22/17 05/22/17 07:00 15:00 23:00 07:00 15:00 23:00 Intake Total 1264 ml 2020 ml 2143.6 ml 1200 ml Output Total 975 ml 1650 ml 1250 ml Balance 289 ml 2020 ml 493.6 ml -1250 ml 1200 ml IV Total 1264 ml 2020 ml 2143.6 ml 1200 ml Output Urine Total 825 ml 1000 ml 550 ml Gastric Drainage Total 150 ml 650 ml 700 ml # Bowel Movements 1 0 2 Result Diagram: 05/22/17 1200 05/22/17 0520 Objective Remarks GENERAL: sedated on ventilator SKIN: Warm and dry. HEAD: Atraumatic. Normocephalic. EYES: Pupils equal and round. No scleral icterus. No injection or drainage. ENT: No nasal bleeding or discharge. Mucous membranes pink and moist. NECK: Trachea midline. No JVD. CARDIOVASCULAR: Regular rate and rhythm. RESPIRATORY: No accessory muscle use. Clear to auscultation. Breath sounds equal bilaterally. GASTROINTESTINAL: Abdomen soft, non-tender, nondistended. Hepatic and splenic margins not palpable. MUSCULOSKELETAL: Extremities without clubbing, cyanosis, or edema. No obvious deformities. NEUROLOGICAL: Awake and alert. No obvious cranial nerve deficits. Motor grossly within normal limits. Five out of 5 muscle strength in the arms and legs. Normal speech. PSYCHIATRIC: Appropriate mood and affect; insight and judgment normal. Assessment and Plan Assessment and Plan assessment respiratory failure bowel obstruction ? PNA COPD CHF HTN HLD PLAN VENT SUPPORT ANTIBX PULM TOILET SURGERY FOLLOWING f/u cxray Tania Marin MD May 22, 2017 14:45
[2017-05-22 23:47] LABS: PHOSPHORUS 0.9 MG/DL (2.5-4.9)
[2017-05-23] VITALS (17 sets, daily range): BP systolic 95–122; BP diastolic 65–72; PULSE 66–102; RESP 18–26; TEMP 97.3–98.9; O2SAT 92–100
[2017-05-23] MEDS: INSULIN ASPART SUPPLEMENTAL SCALE SQ SCH ×3 (00:39→18:00)
[2017-05-23] MEDS: 1/2 NS + KCL 20 MEQ INJ 1,000 ML IV SCH ×2 (01:31→11:01)
[2017-05-23] MEDS: METOCLOPRAMIDE HCL 10 MG/2 ML VIAL IV PUSH SCH ×6 (04:41→22:00)
[2017-05-23] MEDS: methylPREDNISolone SOD SUCC 40 MG/1 ML VIAL IV PUSH SCH ×3 (04:41→22:12)
[2017-05-23] MEDS: PROPOFOL 1000 MG/100 ML INJ 100 ML IV PRN ×3 (05:54→23:47)
[2017-05-23 06:51] LABS: ALBUMIN 2.1 GM/DL (3.4-5.0); ALKALINE PHOSPHATASE 44 U/L (45-117); ALT (GPT) 33 U/L (12-78); AST (GOT) 14 U/L (15-37); BICARBONATE 35.6 MEQ/L (21.0-32.0); BLOOD UREA NITROGEN 30 MG/DL (7-18); CALCIUM 8.4 MG/DL (8.5-10.1); CHLORIDE 106 MEQ/L (98-107); CREATININE 0.75 MG/DL (0.60-1.30); GLOMERULAR FILTRATION RATE 124 ML/MIN (>89); GLUCOSE,RANDOM 256 MG/DL (74-106); SODIUM (NA) 144 MEQ/L (136-145); TOTAL BILIRUBIN ADULT 0.7 MG/DL (0.2-1.0); TOTAL PROTEIN 5.5 GM/DL (6.4-8.2)
--- NOTE | 2017-05-23 07:47 | HHI.CCPN ---
Subjective Remarks/Hospital Course Patient is a 72-year-old -[place] male with past medical history significant for COPD on home oxygen, chronic systolic heart failure EF 20-25%, chronic atrial fibrillation, bilateral lower extremity DVT on Coumadin, who was admitted to the hospitalist service on 05/13/2017 with history of nausea, vomiting with no diarrhea, not passing gas or stools for last 2 days. ER workup which included a CT of the abdomen pelvis showed small bowel obstruction which was high-grade. General surgery was consulted and patient was admitted to the floor. He was kept n.p.o. and NGT was placed. He was placed on a heparin drip for subtherapeutic INR. Today Halicat was called as patient became acutely hypoxemic. His O2 saturation went down to low 70s and was placed on 100% nonrebreather. Stat chest x-ray showed increasing interstitial edema and pulmonary vascular congestion indicating a CHF exacerbation. I evaluated the patient in the ICU. He is in a moderate respiratory distress currently on 100% nonrebreather. Physical exam revealed elevated JVD and bibasilar crackles. It appears that patient has acute systolic heart failure exacerbation. I will give IV Lasix 40 mg 1 now and scheduled 40 every 12. If his condition does not improve with the above measures patient may need endotracheal intubation, he is not a candidate for BiPAP due to significant small bowel obstruction and risk of aspiration. SB series is pending at this time, and Dr. Murray thinks it is ileus. Start IV Reglan, keep K>4 SUBJ 05/15/17: Remains on partial nonrebreather desaturates when placed on Ventimask 50%. He claims that he is breathing more comfortably. With IV Lasix made 1 L urine overnight. Started on Reglan yesterday ileus persist. Increase Reglan to 10 mg every 8. Small bowel series showing high grade obstruction. 05/16: Supplemental O2 down to 5 liters. Bowel is opening up, no surgery planned. Transfer. 05/20: Patient has developed what appears to be complete colon obstruction with severe dilation extending into small bowel. Now dehydrated with prerenal azotemia and electrolyte imbalance. We will bring him to the ICU, intubate, hydrate, place NG tube, correct electrolytes and generally maximize his physiological status as best as can be accomplished for a patient with COPD and baseline EF 25%. He requires laparotomy and colon resection for probable ischemic bowel. Patient agrees to surgery and wants continued aggressive care. I intubated patient after arrival to ICU and placed central line. Aggressive resuscitation started. Discussed with general surgery. Also has severe hypokalemia, potassium is 2.3 05/21: Patient having BMs. Abdomen soft, will continue to decompress from above. 05/22: BMs persist. Bowel gas resolving. Cardiopulmonary status critical. 05/23: Gas exchange and fluid balance about right; start attempts to extubate. Objective Vital Signs Date Time Temp Pulse Resp B/P (MAP) Pulse Ox O2 Delivery O2 Flow Rate FiO2 05/23/17 04:00 35 05/23/17 04:00 98.8 82 18 122/71 (88) 98 05/22/17 19:00 Mechanical Ventilator 05/20/17 10:00 15.00 Intake and Output 05/23/17 05/23/17 05/24/17 08:00 16:00 00:00 Intake Total 2262 ml Output Total 400 ml Balance 1862 ml Result Diagram: 05/22/17 1200 05/23/17 0500 Other Results Microbiology Date/Time Source Procedure Growth Status 05/20/17 11:40 Sputum Endotracheal Gram Stain - Final Complete 05/20/17 11:40 Sputum Endotracheal Sputum Culture - Final HEAVY GROWTH NORMAL RESPIRATORY DARCIE Complete Imaging Chest x-ray shows bilateral pulmonary vascular congestion and atelectasis Objective Remarks GENERAL: Elderly male. SKIN: warm/dry. HEAD: Atraumatic. Normocephalic. EYES: No scleral icterus. No injection or drainage. ENT: No nasal bleeding or discharge. Mucous membranes dry NECK: Trachea midline. Supple. Neck veins full. CARDIOVASCULAR: S1-S2, no m,r. Irregular, rate controlled. RESPIRATORY: Breath sounds equal bilaterally with few basilar fine crackles, no wheezes. GASTROINTESTINAL: Abdomen soft moderately distended. No tenderness, BS present. MUSCULOSKELETAL: No edema. Bilateral chronic venous normal when light. Well perfused. NEURO: Opens eyes, moves 4 limbs. Nods head to questions. A/P Assessment and Plan ASSESSMENT: Acute hypoxemic respiratory failure Colonic ileus, small bowel obstruction Severe hypokalemia Chronic systolic heart failure exacerbation COPD Cardiomyopathy EF 20-25% COPD on home oxygen Bilateral DVT Chronic atrial fibrillation Malnutrition Hemoptysis. PLAN: NEURO: -Post intubation propofol for sedation and vent synchrony -Avoid opiates due to ileus -Wean off propofol sedation RESP: -CPAP trials. -Intubated and placed on mechanical ventilation for hypoxemia and to facilitate resuscitation -Vent bundle. DuoNeb every 4 hours scheduled and as needed -Solu-Medrol 60 every 6 hours, hold prednisone -> decrease -Empiric Levaquin for COPD exacerbation CV: -Restart Lasix. Hold Aldactone -Taper levophed to keep map above 65 -Chest x-ray previously showed worsening interstitial edema -Currently on Coreg and Cardizem and lisinopril for CHF and A. fib-hold due to hypotension and dehydration -d/c heparin due to hemoptysis GI: -Dr. Murray following for small bowel obstruction, colonic ileus. -Keep NPO. NGT intermittent wall suction -Discussed with Dr. Murray who is following. -D/C Flagyl added for colon coverage : -Monitor renal function closely. Faulkner catheter. -Continue aggressive resuscitation -Restart Lasix and Aldactone ID: -Continue empiric Levaquin and Flagyl HEME: -Monitor CBC, CMP, coags -Hold IV heparin ENDO: -Electrolyte replacement per ICU protocol PROPH: -Bilateral lower extremity SCDs. IV heparin-currently on hold. IV famotidine LINES: -Utilize peripheral IVs, placed right subclavian central line Overall impression: Hemoptysis and systolic heart failure. Resolving massive colon distention and proximal small bowel obstruction/dilation. Large fluid and electrolyte losses. Chronic systolic heart failure and non-exacerbated COPD. Small new right upper lobe infiltrate. Risk is markedly elevated due to comorbid conditions. Intubated and central line placed. Kalin Pyane MD May 23, 2017 07:47
[2017-05-23] MEDS: CHLORHEXIDINE 0.12% (ORAL KIT) 15 ML CUP MT SCH ×2 (08:00→21:10)
[2017-05-23] MEDS: DOCUSATE SODIUM 100 MG CAP PO SCH ×2 (09:00→21:00)
[2017-05-23] MEDS: BISACODYL 10 MG SUPP RECTAL SCH (09:00)
[2017-05-23] MEDS: INSULIN DETEMIR 100 UNITS/ML VIAL SQ SCH ×2 (09:00→21:10)
[2017-05-23] MEDS: COLLAGENASE OINT 30 GM TUBE TOPICAL SCH (09:00)
[2017-05-23] MEDS: FUROSEMIDE 40 MG/4 ML VIAL IV PUSH SCH (09:01)
[2017-05-23] MEDS: CLINIMIX 4.25/25 (Cust.Renal Central) 1000 mL- </= 42 mls/hr IV-CENTRAL SCH ×8 (09:56)
--- NOTE | 2017-05-23 10:54 | HHI.PR ---
cc: Raleigh Murray MD Subjective Subjective Notes DAILY PROGRESS NOTE FOR SURGICAL ATTENDING, DR. RALEIGH MURRAY Intubated/Sedated NAFISA Marinelli at bedside --- on CPAP Objective Vitals/I&O Vital Signs Date Time Temp Pulse Resp B/P (MAP) Pulse Ox O2 Delivery O2 Flow Rate FiO2 05/23/17 09:15 Mechanical Ventilator 15.00 45 05/23/17 08:30 100 05/23/17 04:00 98.8 82 18 122/71 (88) Labs Laboratory Tests Test 05/22/17 12:00 05/22/17 23:00 05/23/17 05:00 Hemoglobin 13.2 Hematocrit 40.7 Activated Partial Thromboplast Time 23.7 Potassium Level 3.8 3.9 Phosphorus Level 0.9 Blood Urea Nitrogen 30 Creatinine 0.75 Random Glucose 256 Total Protein 5.5 Albumin 2.1 Calcium Level 8.4 Alkaline Phosphatase 44 Aspartate Amino Transf (AST/SGOT) 14 Alanine Aminotransferase (ALT/SGPT) 33 Total Bilirubin 0.7 Sodium Level 144 Chloride Level 106 Carbon Dioxide Level 35.6 Anion Gap 2 Estimat Glomerular Filtration Rate 124 Date/Time Source Procedure Growth Status 05/20/17 11:40 Sputum Endotracheal Gram Stain - Final Complete 05/20/17 11:40 Sputum Endotracheal Sputum Culture - Final HEAVY GROWTH NORMAL RESPIRATORY DARCIE Complete Radiology Last Impressions Chest X-Ray 05/22/17 0600 Signed Impressions: Service Date/Time: May 05:16 - CONCLUSION: Stable chest x-ray with mild bibasilar airspace opacity representing either atelectasis or consolidation. Kush Catalan MD Abdomen X-Ray 05/22/17 0600 Signed Impressions: Service Date/Time: May 10:04 - CONCLUSION: The previously noted dilated small bowel have resolved. NG tube in the stomach. Jeff Foster MD Small Bowel X-Ray 05/14/17 0000 Signed Impressions: Service Date/Time: Sunday, May 14, 2017 11:20 - CONCLUSION: 1. Findings consistent with CT examination and suggestive of high grade obstruction in the distal jejunum/proximal ileum. Kwaku Vences MD Abdomen/Pelvis CT 05/13/17 1005 Signed Impressions: Service Date/Time: Saturday, May 13, 2017 11:36 - CONCLUSION: 1. Mid to distal jejunal small bowel ileus with acute transition characteristic of high grade small bowel obstruction. 2. Uncomplicated colonic diverticulosis. 3. Mild ascites. 4. Uncomplicated colonic diverticulosis. Conor John MD Cardiovascular: Regular Lungs: Clear Abdomen: Non-distended, Non-tender Extremities: Other (mild generalized edema ) A/P Problem List: (1) Ileus ICD Codes: K56.7 - Ileus, unspecified Status: Acute (2) Acute hypoxemic respiratory failure ICD Codes: J96.01 - Acute respiratory failure with hypoxia Status: Acute (3) Respiratory failure ICD Codes: J96.90 - Respiratory failure, unspecified, unspecified whether with hypoxia or hypercapnia (4) DVT (deep venous thrombosis) ICD Codes: I82.409 - Acute embolism and thrombosis of unspecified deep veins of unspecified lower extremity Status: Acute (5) Atrial fibrillation ICD Codes: I48.91 - Unspecified atrial fibrillation Status: Chronic (6) Bilious vomiting with nausea ICD Codes: R11.14 - Bilious vomiting Status: Acute (7) History of CHF (congestive heart failure) ICD Codes: Z86.79 - Personal history of other diseases of the circulatory system Status: Acute (8) History of DVT (deep vein thrombosis) ICD Codes: Z86.718 - Personal history of other venous thrombosis and embolism Status: Acute (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 ICD Codes: Z79.01 - assisted (current) use of anticoagulants Status: Acute (10) COPD (chronic obstructive pulmonary disease) ICD Codes: J44.9 - Chronic obstructive pulmonary disease, unspecified (11) Cardiomyopathy ICD Codes: I42.9 - Cardiomyopathy, unspecified (12) Dyspnea ICD Codes: R06.00 - Dyspnea, unspecified (13) Hypokalemia ICD Codes: E87.6 - Hypokalemia (14) Low serum phosphorus for age ICD Codes: R79.0 - Abnormal level of blood mineral (15) Low serum magnesium level ICD Codes: E83.42 - Hypomagnesemia (16) Low magnesium level ICD Codes: R79.0 - Abnormal level of blood mineral (17) Increased PTH level ICD Codes: E34.9 - Endocrine disorder, unspecified Assessment and Plan 72 year old male with multiple medical issues; BLE DVTs; SBO Severe ileus that has resolved -CCM following---Intubated ---CPAP trial today -NGT to LIWS -Continue to monitor electrolytes -Continue TPN -+BM; abdomen soft -If not extubated today; ok to start trickle feedings this afternoon Attending Statement NOTE FOR SURGICAL ATTENDING, DR. RALEIGH MURRAY Patient seen intensive care unit Discussed with nursing staff Plan to extubate possibly today or tomorrow Okay to start trickle feeds as it appears that his ileus has resolved. Discussed with Dr. Mcnally Surgery will sign off Call if needed I agree with above assessment and plan. The exam, history, and the medical decision-making described in the above note were completed with the assistance of the mid-level provider. I reviewed and agree with the findings presented. I attest that I had a [id number] encounter with the patient on the same day, and personally performed and documented my assessment and findings in the medical record. The following services were provided during this hospital visit: Chart data review, vital sign assessments/reviewing monitor data Review of consultations notes if present. Medication orders/review and/or management Ordering and/or reviewing lab tests Ordering and/or interpreting/reviewing x-rays and/or diagnostic studies Care of the patient and discussion of the patient with the care team Documentation time To help prompt me to consider important information that might be impacting today's encounter and assessment, information from prior notes written by myself or my colleagues may have been "brought forward/copy and pasted" into today's note. Problem Qualifiers (1) Respiratory failure: Emilee Martinez/Agricultural Technical Officer AGILE COACH May 23, 2017 10:54 Raleigh Murray MD May 23, 2017 11:35
[2017-05-23] MEDS: LEVOFLOXACIN 750 MG PREMIX INJ 150 ML IV SCH (11:01)
--- NOTE | 2017-05-23 13:20 | HHI.NPPN ---
Subjective History of Present Illness The patient is a 72 yo AA male who presented to this facility on 05/13 with complaints of nausea and vomiting. Was diagnosed with SBO and treated via NG tube. He was tranferred to ICU on 05/14 for ARDS related to CHF exacerbation and was treated with IV Lasix and transferred back to the main floor on 05/16. On 05/20, was diagnosed with ischemic large bowel and was transferred back to ICU for ARF, hypokalemia, and potential prep for colon resection. At consult, SCr 1.68 with eGFR 49 (baseline renal functions appear to be normal with SCr 0.7-0.8). He has a severe cardiomyopathy with EF of only 20% Interval History Patient remains on ventilatory support not responding to questions or verbal commands. Review of Systems General General Remarks Unobtainable. Objective Data Data 05/23/17 05/24/17 19:00 07:00 Intake Total 1980 ml Balance 1980 ml IV Total 1980 ml Vital Signs Date Time Temp Pulse Resp B/P (MAP) Pulse Ox O2 Delivery O2 Flow Rate FiO2 05/23/17 12:17 99 45 05/23/17 12:00 95 05/23/17 12:00 95 05/23/17 12:00 97.4 101 20 118/71 (87) 99 05/23/17 12:00 45 05/23/17 10:00 90 05/23/17 09:15 Mechanical Ventilator 15.00 45 05/23/17 08:30 100 45 05/23/17 08:30 45 05/23/17 08:30 100 Ventilator 45 05/23/17 08:00 35 05/23/17 08:00 89 05/23/17 08:00 97.3 94 20 118/72 (87) 97 05/23/17 04:00 35 05/23/17 04:00 98.8 82 18 122/71 (88) 98 05/23/17 03:31 96 35 05/23/17 01:07 95 35 05/23/17 00:00 35 05/23/17 00:00 98.3 66 21 104/65 (78) 96 05/22/17 20:01 95 35 05/22/17 20:00 97.0 78 20 93/60 (71) 96 05/22/17 20:00 35 05/22/17 19:00 Mechanical Ventilator 35 05/22/17 18:00 78 05/22/17 16:00 78 05/22/17 16:00 98.2 78 13 130/65 (86) 95 05/22/17 16:00 96 35 05/22/17 16:00 35 05/22/17 14:00 73 -: 05/22/17 1200 05/23/17 0500 Physical Exam General Appearance: No Acute Distress, Comfortable, Malnourished Eyes Eye Exam: Sclera White Pulmonary Resp Exam: Clear Bilaterally, Breath Sounds Equal Cardiology CV Exam: Regular Gastrointestinal/Abdomen GI Exam: Soft, Non-Tender Integumentary Skin Exam: Warm Assessment/Plan Problem List: (1) Acute renal insufficiency ICD Codes: N28.9 - Disorder of kidney and ureter, unspecified Plan: Patient's creatinine level now within normal range. At this point in time we'll sign off. Please recall if needed. (2) Hypokalemia ICD Codes: E87.6 - Hypokalemia Status: Resolved Plan: Repletion ordered (3) Alkalosis ICD Codes: E87.3 - Alkalosis Plan: Secondary to gastrointestinal fluid losses with associated hypokalemia. Improved. (4) Cardiomyopathy ICD Codes: I42.9 - Cardiomyopathy, unspecified Plan: Reported EF of 20% (5) COPD (chronic obstructive pulmonary disease) ICD Codes: J44.9 - Chronic obstructive pulmonary disease, unspecified (6) Atrial fibrillation ICD Codes: I48.91 - Unspecified atrial fibrillation Status: Chronic (7) Small bowel obstruction ICD Codes: K56.609 - Unspecified intestinal obstruction, unspecified as to partial versus complete obstruction Status: Acute Misti Antonio MD May 23, 2017 13:20
--- NOTE | 2017-05-23 16:12 | HHI.PR ---
Subjective Remarks ON THE VENT sedated Objective Vital Signs Date Time Temp Pulse Resp B/P (MAP) Pulse Ox O2 Delivery O2 Flow Rate FiO2 05/23/17 14:00 102 05/23/17 12:17 99 45 05/23/17 12:00 95 05/23/17 12:00 95 05/23/17 12:00 97.4 101 20 118/71 (87) 99 05/23/17 12:00 45 05/23/17 10:00 90 05/23/17 09:15 Mechanical Ventilator 15.00 45 05/23/17 08:30 100 45 05/23/17 08:30 45 05/23/17 08:30 100 Ventilator 45 05/23/17 08:00 35 05/23/17 08:00 89 05/23/17 08:00 97.3 94 20 118/72 (87) 97 05/23/17 04:00 35 05/23/17 04:00 98.8 82 18 122/71 (88) 98 05/23/17 03:31 96 35 05/23/17 01:07 95 35 05/23/17 00:00 35 05/23/17 00:00 98.3 66 21 104/65 (78) 96 05/22/17 20:01 95 35 05/22/17 20:00 97.0 78 20 93/60 (71) 96 05/22/17 20:00 35 05/22/17 19:00 Mechanical Ventilator 35 05/22/17 18:00 78 I/O 05/22/17 05/22/17 05/22/17 05/23/17 05/23/17 05/23/17 07:00 15:00 23:00 07:00 15:00 23:00 Intake Total 1350 ml 32 ml 2262 ml 1980 ml Output Total 1250 ml 1525 ml 400 ml Balance -1250 ml 1350 ml -1493 ml 1862 ml 1980 ml IV Total 1350 ml 32 ml 2262 ml 1980 ml Output Urine Total 550 ml 1400 ml 350 ml Stool Total 0 ml Gastric Drainage Total 700 ml 125 ml 50 ml # Bowel Movements 2 Result Diagram: 05/22/17 1200 05/23/17 0500 Objective Remarks GENERAL: sedated on ventilator SKIN: Warm and dry. HEAD: Atraumatic. Normocephalic. EYES: Pupils equal and round. No scleral icterus. No injection or drainage. ENT: No nasal bleeding or discharge. Mucous membranes pink and moist. NECK: Trachea midline. No JVD. CARDIOVASCULAR: Regular rate and rhythm. RESPIRATORY: No accessory muscle use. Clear to auscultation. Breath sounds equal bilaterally. GASTROINTESTINAL: Abdomen soft, non-tender, nondistended. Hepatic and splenic margins not palpable. MUSCULOSKELETAL: Extremities without clubbing, cyanosis, or edema. No obvious deformities. NEUROLOGICAL: Awake and alert. No obvious cranial nerve deficits. Motor grossly within normal limits. Five out of 5 muscle strength in the arms and legs. Normal speech. PSYCHIATRIC: Appropriate mood and affect; insight and judgment normal. Assessment and Plan Assessment and Plan assessment respiratory failure bowel obstruction ? PNA COPD CHF HTN HLD PLAN VENT SUPPORT, WEAN TOLERATED ANTIBX PULM TOILET SURGERY FOLLOWING f/u cxray Tania Marin MD May 23, 2017 16:12
[2017-05-23] MEDS: SODIUM CHLORIDE 0.9% FLUSH 10 ML FLUSH IV FLUSH SCH (21:00)
[2017-05-23] MEDS: SODIUM CHLORIDE 23.4% INJ 5.5 MEQ, SODIUM ACETATE INJ 29.5 MEQ, POTASSIUM CHLORIDE INJ ... IV-CENTRAL SCH ×8 (21:16)
[2017-05-24] VITALS (19 sets, daily range): BP systolic 87–132; BP diastolic 60–85; PULSE 82–103; RESP 7–24; TEMP 98.7–99.1; O2SAT 92–99
[2017-05-24] MEDS: INSULIN ASPART SUPPLEMENTAL SCALE SQ SCH ×4 (00:56→17:10)
[2017-05-24] MEDS: METOCLOPRAMIDE HCL 10 MG/2 ML VIAL IV PUSH SCH ×4 (05:11→21:48)
[2017-05-24] MEDS: methylPREDNISolone SOD SUCC 40 MG/1 ML VIAL IV PUSH SCH ×3 (05:14→21:47)
[2017-05-24] MEDS: PROPOFOL 1000 MG/100 ML INJ 100 ML IV PRN ×3 (05:14→22:56)
[2017-05-24 05:42] LABS: CREATININE 0.75 MG/DL (0.60-1.30)
[2017-05-24] MEDS: 1/2 NS + KCL 20 MEQ INJ 1,000 ML IV SCH (07:53)
[2017-05-24] MEDS: FUROSEMIDE 40 MG/4 ML VIAL IV PUSH SCH (07:53)
[2017-05-24] MEDS: DOCUSATE SODIUM 100 MG/10 ML UDC PO SCH ×2 (07:54→21:47)
[2017-05-24] MEDS: INSULIN DETEMIR 100 UNITS/ML VIAL SQ SCH ×2 (07:54→21:48)
[2017-05-24] MEDS: BISACODYL 10 MG SUPP RECTAL SCH (07:54)
[2017-05-24] MEDS: CHLORHEXIDINE 0.12% (ORAL KIT) 15 ML CUP MT SCH ×2 (07:55→20:00)
[2017-05-24] MEDS: COLLAGENASE OINT 30 GM TUBE TOPICAL SCH (07:55)
[2017-05-24] MEDS: SODIUM CHLORIDE 0.9% FLUSH 10 ML FLUSH IV FLUSH SCH ×2 (07:58→21:48)
[2017-05-24] MEDS: SODIUM CHLORIDE 23.4% INJ 5.5 MEQ, SODIUM ACETATE INJ 29.5 MEQ, POTASSIUM CHLORIDE INJ ... IV-CENTRAL SCH ×16 (07:58→22:44)
--- NOTE | 2017-05-24 10:59 | HHI.CCPN ---
Subjective Remarks/Hospital Course Patient is a 72-year-old -[place] male with past medical history significant for COPD on home oxygen, chronic systolic heart failure EF 20-25%, chronic atrial fibrillation, bilateral lower extremity DVT on Coumadin, who was admitted to the hospitalist service on 05/13/2017 with history of nausea, vomiting with no diarrhea, not passing gas or stools for last 2 days. ER workup which included a CT of the abdomen pelvis showed small bowel obstruction which was high-grade. General surgery was consulted and patient was admitted to the floor. He was kept n.p.o. and NGT was placed. He was placed on a heparin drip for subtherapeutic INR. Today Halicat was called as patient became acutely hypoxemic. His O2 saturation went down to low 70s and was placed on 100% nonrebreather. Stat chest x-ray showed increasing interstitial edema and pulmonary vascular congestion indicating a CHF exacerbation. I evaluated the patient in the ICU. He is in a moderate respiratory distress currently on 100% nonrebreather. Physical exam revealed elevated JVD and bibasilar crackles. It appears that patient has acute systolic heart failure exacerbation. I will give IV Lasix 40 mg 1 now and scheduled 40 every 12. If his condition does not improve with the above measures patient may need endotracheal intubation, he is not a candidate for BiPAP due to significant small bowel obstruction and risk of aspiration. SB series is pending at this time, and Dr. Murray thinks it is ileus. Start IV Reglan, keep K>4 SUBJ 05/15/17: Remains on partial nonrebreather desaturates when placed on Ventimask 50%. He claims that he is breathing more comfortably. With IV Lasix made 1 L urine overnight. Started on Reglan yesterday ileus persist. Increase Reglan to 10 mg every 8. Small bowel series showing high grade obstruction. 05/16: Supplemental O2 down to 5 liters. Bowel is opening up, no surgery planned. Transfer. 05/20: Patient has developed what appears to be complete colon obstruction with severe dilation extending into small bowel. Now dehydrated with prerenal azotemia and electrolyte imbalance. We will bring him to the ICU, intubate, hydrate, place NG tube, correct electrolytes and generally maximize his physiological status as best as can be accomplished for a patient with COPD and baseline EF 25%. He requires laparotomy and colon resection for probable ischemic bowel. Patient agrees to surgery and wants continued aggressive care. I intubated patient after arrival to ICU and placed central line. Aggressive resuscitation started. Discussed with general surgery. Also has severe hypokalemia, potassium is 2.3 05/21: Patient having BMs. Abdomen soft, will continue to decompress from above. 05/22: BMs persist. Bowel gas resolving. Cardiopulmonary status critical. 05/23: Gas exchange and fluid balance about right; start attempts to extubate. 05/24: Stronger on SBTs. Glucose intolerance persists. Increase TFs to 20/hr, reduce TPN to 60 ml/hr. Still having stools. Objective Vital Signs Date Time Temp Pulse Resp B/P (MAP) Pulse Ox O2 Delivery O2 Flow Rate FiO2 05/24/17 10:00 102 05/24/17 08:00 40 05/24/17 08:00 98.9 7 99/62 (74) 97 05/24/17 07:00 Mechanical Ventilator 05/23/17 09:15 15.00 Intake and Output 05/24/17 05/24/17 05/25/17 08:00 16:00 00:00 Intake Total 4621.0719 ml Output Total 650 ml Balance 3971.0719 ml Result Diagram: 05/22/17 1200 05/24/17 0403 Imaging Chest x-ray shows bilateral pulmonary vascular congestion and atelectasis Objective Remarks GENERAL: Elderly male. SKIN: warm/dry. HEAD: Atraumatic. Normocephalic. EYES: No scleral icterus. No injection or drainage. ENT: No nasal bleeding or discharge. Mucous membranes dry NECK: Trachea midline. Supple. Neck veins full. CARDIOVASCULAR: S1-S2, no m,r. Irregular, rate controlled. RESPIRATORY: Breath sounds equal bilaterally with no crackles, no wheezes. GASTROINTESTINAL: Abdomen soft moderately distended. No tenderness, BS present. MUSCULOSKELETAL: No edema. Bilateral chronic venous normal when light. Well perfused. NEURO: Opens eyes, moves 4 limbs. Nods head to questions. Gestures with hands. A/P Assessment and Plan ASSESSMENT: Acute hypoxemic respiratory failure Colonic ileus, small bowel obstruction Severe hypokalemia Chronic systolic heart failure exacerbation COPD Cardiomyopathy EF 20-25% COPD on home oxygen Bilateral DVT Chronic atrial fibrillation Malnutrition Hemoptysis. PLAN: NEURO: -Post intubation propofol for sedation and vent synchrony -Avoid opiates due to ileus -Wean off propofol sedation RESP: -CPAP trials. -Intubated and placed on mechanical ventilation for hypoxemia and to facilitate resuscitation -Vent bundle. DuoNeb every 4 hours scheduled and as needed -Solu-Medrol 60 every 6 hours, hold prednisone -> decrease -Empiric Levaquin for COPD exacerbation CV: -Restart Lasix. Hold Aldactone -Taper levophed to keep map above 65 -Chest x-ray previously showed worsening interstitial edema -Currently on Coreg and Cardizem and lisinopril for CHF and A. fib-hold due to hypotension and dehydration -d/c heparin due to hemoptysis GI: -Dr. Murray following for small bowel obstruction, colonic ileus. -Keep NPO. NGT intermittent wall suction -Discussed with Dr. Murray who is following. -D/C Flagyl added for colon coverage -TFs to 20 ml/hr : -Monitor renal function closely. Faulkner catheter. -Continue aggressive resuscitation -Restart Lasix and Aldactone ID: -Continue empiric Levaquin and d/c Flagyl HEME: -Monitor CBC, CMP, coags -Hold IV heparin ENDO: -Electrolyte replacement per ICU protocol PROPH: -Bilateral lower extremity SCDs. IV heparin-currently on hold. IV famotidine LINES: -Utilize peripheral IVs, placed right subclavian central line Overall impression: Hemoptysis and systolic heart failure. Resolving massive colon distention and proximal small bowel obstruction/dilation. Large fluid and electrolyte losses. Chronic systolic heart failure and non-exacerbated COPD. Small new right upper lobe infiltrate. Risk is markedly elevated due to comorbid conditions. Intubated and central line placed. Kalin Payne MD May 24, 2017 10:59
[2017-05-24] MEDS: LEVOFLOXACIN 750 MG PREMIX INJ 150 ML IV SCH (12:11)
--- NOTE | 2017-05-24 14:30 | HHI.PR ---
Subjective Remarks Patient is intubated on CPAP with PS10, PEEP:5 and FIO2: 40%. On Diprivan infusion for sedation. Afebrile. Objective Vital Signs Vital Signs Date Time Temp Pulse Resp B/P (MAP) Pulse Ox O2 Delivery O2 Flow Rate FiO2 05/24/17 14:00 95 05/24/17 12:00 40 05/24/17 12:00 101 05/24/17 12:00 98.8 101 23 132/85 (101) 99 05/24/17 11:18 99 40 05/24/17 10:00 102 05/24/17 08:00 40 05/24/17 08:00 82 05/24/17 08:00 98.9 84 7 99/62 (74) 97 05/24/17 07:20 97 40 05/24/17 07:20 40 05/24/17 07:00 100 Mechanical Ventilator 40 05/24/17 06:00 85 05/24/17 04:00 85 05/24/17 04:00 40 05/24/17 04:00 98.8 98 20 87/60 (69) 92 05/24/17 02:55 98 40 05/24/17 02:00 83 05/24/17 00:00 40 05/24/17 00:00 82 05/24/17 00:00 98.7 92 19 126/67 (86) 92 05/23/17 23:38 100 40 05/23/17 22:00 82 05/23/17 20:46 100 40 05/23/17 20:00 40 05/23/17 20:00 98.9 82 26 114/72 (86) 92 05/23/17 20:00 85 05/23/17 20:00 Mechanical Ventilator 40 05/23/17 18:00 90 05/23/17 16:37 100 45 05/23/17 16:00 45 05/23/17 16:00 98.2 82 20 95/66 (76) 100 05/23/17 16:00 92 I/O 05/23/17 05/23/17 05/23/17 05/24/17 05/24/17 05/24/17 07:00 15:00 23:00 07:00 15:00 23:00 Intake Total 2262 ml 1980 ml 2584 ml 2287.0719 ml Output Total 400 ml 1450 ml 650 ml 40.0 ml Balance 1862 ml 1980 ml -1450 ml 1934 ml 2247.0719 ml IV Total 2262 ml 1980 ml 1832 ml 2287.0719 ml Tube Feeding 40 ml TPN/PPN 712 ml Output Urine Total 350 ml 950 ml 400 ml Stool Total 100 ml 50 ml Gastric Drainage Total 50 ml 400 ml 200 ml Tube Feeding Residual Discard 40.0 ml Result Diagram: 05/22/17 1200 05/24/17 0403 Other Results Last Impressions Chest X-Ray 05/22/17 0600 Signed Impressions: Service Date/Time: May 05:16 - CONCLUSION: Stable chest x-ray with mild bibasilar airspace opacity representing either atelectasis or consolidation. Kush Catalan MD Abdomen X-Ray 05/22/17 0600 Signed Impressions: Service Date/Time: May 10:04 - CONCLUSION: The previously noted dilated small bowel have resolved. NG tube in the stomach. Jeff Foster MD Small Bowel X-Ray 05/14/17 0000 Signed Impressions: Service Date/Time: Sunday, May 14, 2017 11:20 - CONCLUSION: 1. Findings consistent with CT examination and suggestive of high grade obstruction in the distal jejunum/proximal ileum. Kwaku Vences MD Abdomen/Pelvis CT 05/13/17 1005 Signed Impressions: Service Date/Time: Saturday, May 13, 2017 11:36 - CONCLUSION: 1. Mid to distal jejunal small bowel ileus with acute transition characteristic of high grade small bowel obstruction. 2. Uncomplicated colonic diverticulosis. 3. Mild ascites. 4. Uncomplicated colonic diverticulosis. Conor John MD Objective Remarks GENERAL: PAtient is 72 yo intubated and sedated SKIN: Warm and dry. HEAD: Normocephalic. EYES: No scleral icterus. No injection or drainage. NECK: Supple, trachea midline. No JVD or lymphadenopathy. Orally intubated CARDIOVASCULAR: Regular rate and rhythm without murmurs, gallops, or rubs. RESPIRATORY: Breath sounds equal bilaterally. No accessory muscle use. GASTROINTESTINAL: Abdomen soft, non-tender, nondistended. MUSCULOSKELETAL: No cyanosis, or edema. Neuro: Sedated A/P Assessment and Plan 1)VDRF 2)COPD on home oxygen 3)Cardiomyopathy- EF 15% 4)Colonic ileus, small bowel obstruction 5)Bilateral DVT 6)Chronic atrial fibrillation Plan Continue with vent support keep sats >92% Bronchodilators, ICU vent bundle SBT daily as hamlet, check CXR Continue with abx ( Levaquin)monitor for signs of infections ( fever, WBC) 05/20 sputum cx: normal resp tadeo Continue with diuretics- On lasix 40mg daily D/c IVF Wean off TPN and continue with tube feeds. KUB from 05/22 : previously dilated small bowel has resolved GI/DVT prophylaxis Continue treatment plan David Olson MD May 24, 2017 14:30
[2017-05-24] MEDS: RESP: ALBUTEROL 2.5 MG/IPRATROPIUM 0.5 MG NEB (PRN) NEB (21:30)
[2017-05-25] VITALS (18 sets, daily range): BP systolic 94–136; BP diastolic 59–81; PULSE 82–110; RESP 3–20; TEMP 97.8–99.1; O2SAT 90–100
[2017-05-25] MEDS: INSULIN ASPART SUPPLEMENTAL SCALE SQ SCH ×4 (00:32→18:00)
[2017-05-25 06:06] LABS: HEMATOCRIT 42.6 % (39.0-51.0); MEAN CORPUSCULAR HEMOGLOBIN 29.2 PG (27.0-34.0); MEAN CORPUSCULAR HGB CONC 32.8 % (32.0-36.0); MEAN PLATELET VOLUME 10.7 FL (7.0-11.0); PLATELET COUNT 86 TH/MM3 (150-450); RED BLOOD COUNT 4.79 MIL/MM3 (4.50-5.90); RED CELL DISTRIBUTION WIDTH 17.4 % (11.6-17.2); WHITE BLOOD COUNT 23.5 TH/MM3 (4.0-11.0)
[2017-05-25] MEDS: 1/2 NS + KCL 20 MEQ INJ 1,000 ML IV SCH (06:16)
[2017-05-25] MEDS: METOCLOPRAMIDE HCL 10 MG/2 ML VIAL IV PUSH SCH ×3 (06:19→21:12)
[2017-05-25] MEDS: methylPREDNISolone SOD SUCC 40 MG/1 ML VIAL IV PUSH SCH ×3 (06:19→21:12)
--- NOTE | 2017-05-25 06:36 | RADRPT ---
EXAM DATE/TIME: 05/25/2017 04:39 [facility] COMPARISON: CHEST SINGLE AP, May 22, 2017, 5:16. INDICATIONS : Respiratory disease. MEDICAL HISTORY : Cardiovascular disease. Hypertension. Chronic obstructive pulmonary disease. SURGICAL HISTORY : None. ENCOUNTER: Subsequent ACUITY: 1 week PAIN SCORE: Non-responsive. LOCATION: Bilateral chest FINDINGS: Mild parenchymal consolidation again seen in both bases, not significantly changed. No large effusion . No pneumothorax. Heart size stable, upper limits of normal. Endotracheal tube tip is approximately 2 cm above the yuridia na. There is a nasogastric tube coursing into the stomach and a right subclavian central venous tutu ter again seen, tip at atriocaval junction. CONCLUSION: No significant change. Mild bibasilar consolidation persists. Kush Thomas MD on May 25, 2017 at 6:33 Board Certified Radiologist. This report was verified electronically.
[2017-05-25 06:42] LABS: BICARBONATE 32.9 MEQ/L (21.0-32.0); CALCIUM 8.7 MG/DL (8.5-10.1); CREATININE 0.89 MG/DL (0.60-1.30)
[2017-05-25] MEDS: INSULIN DETEMIR 100 UNITS/ML VIAL SQ SCH ×2 (09:00→21:12)
[2017-05-25] MEDS: BISACODYL 10 MG SUPP RECTAL SCH (09:00)
[2017-05-25] MEDS: SODIUM CHLORIDE 0.9% FLUSH 10 ML FLUSH IV FLUSH SCH ×2 (09:11→21:12)
[2017-05-25] MEDS: CHLORHEXIDINE 0.12% (ORAL KIT) 15 ML CUP MT SCH ×2 (09:11→21:12)
[2017-05-25] MEDS: DOCUSATE SODIUM 100 MG/10 ML UDC PO SCH ×2 (09:12→21:11)
[2017-05-25] MEDS: FUROSEMIDE 40 MG/4 ML VIAL IV PUSH SCH (09:12)
[2017-05-25] MEDS: COLLAGENASE OINT 30 GM TUBE TOPICAL SCH (09:12)
--- NOTE | 2017-05-25 10:03 | HHI.CCPN ---
Subjective Remarks/Hospital Course Patient is a 72-year-old -[place] male with past medical history significant for COPD on home oxygen, chronic systolic heart failure EF 20-25%, chronic atrial fibrillation, bilateral lower extremity DVT on Coumadin, who was admitted to the hospitalist service on 05/13/2017 with history of nausea, vomiting with no diarrhea, not passing gas or stools for last 2 days. ER workup which included a CT of the abdomen pelvis showed small bowel obstruction which was high-grade. General surgery was consulted and patient was admitted to the floor. He was kept n.p.o. and NGT was placed. He was placed on a heparin drip for subtherapeutic INR. Today Halicat was called as patient became acutely hypoxemic. His O2 saturation went down to low 70s and was placed on 100% nonrebreather. Stat chest x-ray showed increasing interstitial edema and pulmonary vascular congestion indicating a CHF exacerbation. I evaluated the patient in the ICU. He is in a moderate respiratory distress currently on 100% nonrebreather. Physical exam revealed elevated JVD and bibasilar crackles. It appears that patient has acute systolic heart failure exacerbation. I will give IV Lasix 40 mg 1 now and scheduled 40 every 12. If his condition does not improve with the above measures patient may need endotracheal intubation, he is not a candidate for BiPAP due to significant small bowel obstruction and risk of aspiration. SB series is pending at this time, and Dr. Murray thinks it is ileus. Start IV Reglan, keep K>4 SUBJ 05/15/17: Remains on partial nonrebreather desaturates when placed on Ventimask 50%. He claims that he is breathing more comfortably. With IV Lasix made 1 L urine overnight. Started on Reglan yesterday ileus persist. Increase Reglan to 10 mg every 8. Small bowel series showing high grade obstruction. 05/16: Supplemental O2 down to 5 liters. Bowel is opening up, no surgery planned. Transfer. 05/20: Patient has developed what appears to be complete colon obstruction with severe dilation extending into small bowel. Now dehydrated with prerenal azotemia and electrolyte imbalance. We will bring him to the ICU, intubate, hydrate, place NG tube, correct electrolytes and generally maximize his physiological status as best as can be accomplished for a patient with COPD and baseline EF 25%. He requires laparotomy and colon resection for probable ischemic bowel. Patient agrees to surgery and wants continued aggressive care. I intubated patient after arrival to ICU and placed central line. Aggressive resuscitation started. Discussed with general surgery. Also has severe hypokalemia, potassium is 2.3 05/21: Patient having BMs. Abdomen soft, will continue to decompress from above. 05/22: BMs persist. Bowel gas resolving. Cardiopulmonary status critical. 05/23: Gas exchange and fluid balance about right; start attempts to extubate. 05/24: Stronger on SBTs. Glucose intolerance persists. Increase TFs to 20/hr, reduce TPN to 60 ml/hr. Still having stools. 05/25: Continued hemoptysis which started when patient was on heparin gtt for a- fib. Heparin has been off for 36 hours. Meets criteria to extubate but will wait for hemoptysis to clear. His COPD and LV dysfunction combine to complicate his respiratory status irregardless, but we can at least not throw hemoptysis into the mix. He may require diagnostic bronch followed by trach for intermediate care. Objective Vital Signs Date Time Temp Pulse Resp B/P (MAP) Pulse Ox O2 Delivery O2 Flow Rate FiO2 05/25/17 07:41 97 40 05/25/17 07:00 Mechanical Ventilator 05/25/17 06:00 84 05/25/17 04:00 97.8 17 94/64 (74) 05/23/17 09:15 15.00 Intake and Output 05/25/17 05/25/17 05/26/17 08:00 16:00 00:00 Intake Total 1255 ml Output Total 400 ml Balance 855 ml Result Diagram: 05/25/17 0530 05/25/17 0530 Imaging Chest x-ray shows bilateral pulmonary vascular congestion and atelectasis Objective Remarks GENERAL: Elderly male. SKIN: warm/dry. HEAD: Atraumatic. Normocephalic. EYES: No scleral icterus. No injection or drainage. ENT: No nasal bleeding or discharge Mucous membranes moist. NECK: Trachea midline. Supple. Neck veins not distended. CARDIOVASCULAR: S1-S2, no m,r. Irregular, rate controlled. RESPIRATORY: Breath sounds equal bilaterally with no crackles, no wheezes. GASTROINTESTINAL: Abdomen soft moderately distended. No tenderness, BS present. MUSCULOSKELETAL: 1+ edema feet. Bilateral chronic venous normal when light. Well perfused. NEURO: Opens eyes, moves 4 limbs. Nods head to questions. Gestures with hands. A/P Assessment and Plan ASSESSMENT: Acute hypoxemic respiratory failure Colonic ileus, small bowel obstruction Severe hypokalemia Chronic systolic heart failure exacerbation COPD Cardiomyopathy EF 20-25% COPD on home oxygen Bilateral DVT Chronic atrial fibrillation Malnutrition Hemoptysis. PLAN: NEURO: -Post intubation propofol for sedation and vent synchrony -Avoid opiates due to ileus -Wean off propofol sedation RESP: -CPAP trials. -Intubated and placed on mechanical ventilation for hypoxemia and to facilitate resuscitation -Vent bundle. DuoNeb every 4 hours scheduled and as needed -Solu-Medrol 60 every 6 hours, hold prednisone -> decrease -d/c empiric Levaquin for COPD exacerbation CV: -Restart Lasix. Hold Aldactone -Taper levophed to keep map above 65 -Chest x-ray previously showed worsening interstitial edema -Currently holding Coreg and Cardizem and lisinopril for CHF and A. fib. -d/c heparin due to hemoptysis GI: -Dr. Murray following for small bowel obstruction, colonic ileus -> resolved. -Keep NPO. NGT intermittent wall suction -Discussed with Dr. Murray who is following. -D/C Flagyl added for colon coverage -TFs to 20 ml/hr : -Monitor renal function closely. Faulkner catheter. -Continue aggressive resuscitation -Restart Lasix 05/23 ID: -Continue empiric Levaquin and d/c Flagyl used when colon was dilated/?ischemic HEME: -Monitor CBC, CMP, coags -Hold IV heparin ENDO: -Electrolyte replacement per ICU protocol PROPH: -Bilateral lower extremity SCDs. IV heparin-currently on hold. IV famotidine LINES: -Utilize peripheral IVs, placed right subclavian central line Overall impression: Hemoptysis persists, but markedly reduced. Compensated systolic heart failure. Resolving massive colon distention and proximal small bowel obstruction/dilation. Large fluid and electrolyte losses. Chronic systolic heart failure and non-exacerbated COPD. Small new right upper lobe infiltrate. Risk markedly elevated due to comorbid conditions. Suitably diuresed , extubate when hemoptysis stops. Kalin Payne MD May 25, 2017 10:03
[2017-05-25] MEDS: PROPOFOL 1000 MG/100 ML INJ 100 ML IV PRN (10:19)
--- NOTE | 2017-05-25 13:09 | HHI.PR ---
Subjective Remarks Patient remains intubated on CPAP with PS10, PEEP:5 and FIO2: 40%. On Diprivan infusion for sedation. Afebrile. Bloody tinged secretions from ETT with suctioning. CXR this morning mild bibasilar consolidation. Objective Vital Signs Vital Signs Date Time Temp Pulse Resp B/P (MAP) Pulse Ox O2 Delivery O2 Flow Rate FiO2 05/25/17 07:41 97 40 05/25/17 07:41 40 05/25/17 07:00 100 Mechanical Ventilator 40 05/25/17 06:00 84 05/25/17 04:00 40 05/25/17 04:00 97.8 88 17 94/64 (74) 98 05/25/17 04:00 88 05/25/17 03:55 98 40 05/25/17 02:00 84 05/25/17 00:00 82 05/25/17 00:00 99.1 82 17 108/64 (79) 97 05/25/17 00:00 40 05/24/17 23:50 98 40 05/24/17 22:00 82 05/24/17 21:21 99 40 05/24/17 20:00 91 05/24/17 20:00 40 05/24/17 20:00 99.1 82 17 108/64 (79) 97 05/24/17 19:00 100 Mechanical Ventilator 40 05/24/17 18:00 103 05/24/17 16:00 91 05/24/17 16:00 98.9 91 24 98/63 (75) 98 05/24/17 16:00 40 05/24/17 15:38 99 40 05/24/17 15:10 99 40 05/24/17 14:00 95 I/O 05/24/17 05/24/17 05/24/17 05/25/17 05/25/17 05/25/17 07:00 15:00 23:00 07:00 15:00 23:00 Intake Total 2584 ml 2287.0719 ml 285 ml 1255 ml Output Total 650 ml 40.0 ml 1200 ml 400 ml Balance 1934 ml 2247.0719 ml -915 ml 855 ml IV Total 1832 ml 2287.0719 ml 100 ml 1000 ml Tube Feeding 40 ml 155 ml 195 ml TPN/PPN 712 ml Other 30 ml 60 ml Output Urine Total 400 ml 1150 ml 350 ml Stool Total 50 ml 50 ml 50 ml Gastric Drainage Total 200 ml Tube Feeding Residual Discard 40.0 ml Result Diagram: 05/25/17 0530 05/25/17 0530 Other Results Last Impressions Chest X-Ray 05/25/17 06 Signed Impressions: Service Date/Time: Thursday, May 25, 2017 04:39 - CONCLUSION: No significant change. Mild bibasilar consolidation persists. Kush Thomas MD Abdomen X-Ray 05/22/17 06 Signed Impressions: Service Date/Time: May 10:04 - CONCLUSION: The previously noted dilated small bowel have resolved. NG tube in the stomach. Jeff Foster MD Small Bowel X-Ray 05/14/17 0000 Signed Impressions: Service Date/Time: Sunday, May 14, 2017 11:20 - CONCLUSION: 1. Findings consistent with CT examination and suggestive of high grade obstruction in the distal jejunum/proximal ileum. Kwaku Vences MD Abdomen/Pelvis CT 05/13/17 1005 Signed Impressions: Service Date/Time: Saturday, May 13, 2017 11:36 - CONCLUSION: 1. Mid to distal jejunal small bowel ileus with acute transition characteristic of high grade small bowel obstruction. 2. Uncomplicated colonic diverticulosis. 3. Mild ascites. 4. Uncomplicated colonic diverticulosis. Conor John MD Objective Remarks GENERAL: PAtient is 72 yo intubated and sedated SKIN: Warm and dry. HEAD: Normocephalic. EYES: No scleral icterus. No injection or drainage. NECK: Supple, trachea midline. No JVD or lymphadenopathy. Orally intubated CARDIOVASCULAR: Regular rate and rhythm without murmurs, gallops, or rubs. RESPIRATORY: Breath sounds equal bilaterally. No accessory muscle use. GASTROINTESTINAL: Abdomen soft, non-tender, nondistended. MUSCULOSKELETAL: No cyanosis, or edema. Neuro: Sedated A/P Assessment and Plan 1)VDRF 2)COPD on home oxygen 3)Cardiomyopathy- EF 15% 4)Colonic ileus, small bowel obstruction 5)Bilateral DVT 6)Chronic atrial fibrillation Plan Continue with vent support keep sats >92% Bronchodilators, ICU vent bundle SBT daily as hamlet, CXR: Mild bibasilar consolidation Off abx s/p Levaquin from 05/16- 05/25, monitor for signs of infections ( fever, WBC) 05/20 sputum cx: normal resp tadeo Continue with diuretics- On Lasix 40mg daily Wean off TPN and continue with tube feeds. KUB from 05/22 : previously dilated small bowel has resolved GI/DVT prophylaxis Continue treatment plan David Olson MD May 25, 2017 13:09
[2017-05-25] MEDS: SODIUM CHLORIDE 23.4% INJ 5.5 MEQ, SODIUM ACETATE INJ 29.5 MEQ, POTASSIUM CHLORIDE INJ ... IV-CENTRAL SCH ×8 (15:46)
[2017-05-25] MEDS: RESP: ALBUTEROL 2.5 MG/IPRATROPIUM 0.5 MG NEB (PRN) NEB (19:25)
[2017-05-26] VITALS (15 sets, daily range): BP systolic 94–145; BP diastolic 60–91; PULSE 92–113; RESP 14–18; TEMP 98.8–99.1; O2SAT 98–100
[2017-05-26] MEDS: PROPOFOL 1000 MG/100 ML INJ 100 ML IV PRN
[2017-05-26] MEDS: INSULIN ASPART SUPPLEMENTAL SCALE SQ SCH ×4 (00:50→18:57)
[2017-05-26] MEDS: 1/2 NS + KCL 20 MEQ INJ 1,000 ML IV SCH ×2 (02:16→21:40)
[2017-05-26] MEDS: RESP: ALBUTEROL 2.5 MG/IPRATROPIUM 0.5 MG NEB (PRN) NEB (05:02)
[2017-05-26 05:58] LABS: BICARBONATE 34.4 MEQ/L (21.0-32.0); CALCIUM 8.4 MG/DL (8.5-10.1); CREATININE 0.82 MG/DL (0.60-1.30); MAGNESIUM 2.6 MG/DL (1.5-2.5); PHOSPHORUS 2.1 MG/DL (2.5-4.9)
[2017-05-26 06:02] LABS: AUTOMATED NEUTROPHIL # 24.2 TH/MM3 (1.8-7.7); BASOPHIL % 0.1 % (0.0-2.0); EOSINOPHIL # 0.2 TH/MM3 (0-0.4); EOSINOPHIL % 0.7 % (0.0-4.0); HEMOGLOBIN 14.9 GM/DL (13.0-17.0); LYMPH % 1.4 % (9.0-44.0); LYMPHOCYTE # 0.4 TH/MM3 (1.0-4.8); MEAN CELL VOLUME 88.9 FL (80.0-100.0); MEAN CORPUSCULAR HEMOGLOBIN 29.5 PG (27.0-34.0); MEAN CORPUSCULAR HGB CONC 33.1 % (32.0-36.0); MEAN PLATELET VOLUME 9.9 FL (7.0-11.0); MONO % 10.3 % (0.0-8.0); MONOCYTE # 2.8 TH/MM3 (0-0.9); NEUT % 87.5 % (16.0-70.0); RED BLOOD COUNT 5.06 MIL/MM3 (4.50-5.90); RED CELL DISTRIBUTION WIDTH 17.1 % (11.6-17.2)
[2017-05-26] MEDS: SODIUM CHLORIDE 23.4% INJ 5.5 MEQ, SODIUM ACETATE INJ 29.5 MEQ, POTASSIUM CHLORIDE INJ ... IV-CENTRAL SCH ×16 (06:17→22:18)
[2017-05-26] MEDS: METOCLOPRAMIDE HCL 10 MG/2 ML VIAL IV PUSH SCH ×3 (06:17→20:55)
[2017-05-26] MEDS: methylPREDNISolone SOD SUCC 40 MG/1 ML VIAL IV PUSH SCH ×3 (06:17→20:55)
--- NOTE | 2017-05-26 06:22 | RADRPT ---
EXAM DATE/TIME: 05/26/2017 04:50 [facility] COMPARISON: CHEST SINGLE AP, May 25, 2017, 4:39. INDICATIONS : Short of breath. MEDICAL HISTORY : Cardiovascular disease. Hypertension. Chronic obstructive pulmonary disease. SURGICAL HISTORY : None. ENCOUNTER: Subsequent ACUITY: 4 - 6 days PAIN SCORE: 0/10 LOCATION: Bilateral chest FINDINGS: A single portable frontal view of the chest shows patchy areas of consolidation throughout both lungs most pronounced within the left base. These are unchanged. No effusions. Heart mildly enlarged. Tip of endotracheal tube 4 cm proximal to naya. Nasogastric tube tip in the region of the body the stom ach. Right subclavian central line. CONCLUSION: Unchanged patchy parenchymal consolidations. Luis Marmolejo Jr., MD on May 26, 2017 at 6:19 Board Certified Radiologist. This report was verified electronically.
--- NOTE | 2017-05-26 07:49 | HHI.CCPN ---
Subjective Remarks/Hospital Course Patient is a 72-year-old -[place] male with past medical history significant for COPD on home oxygen, chronic systolic heart failure EF 20-25%, chronic atrial fibrillation, bilateral lower extremity DVT on Coumadin, who was admitted to the hospitalist service on 05/13/2017 with history of nausea, vomiting with no diarrhea, not passing gas or stools for last 2 days. ER workup which included a CT of the abdomen pelvis showed small bowel obstruction which was high-grade. General surgery was consulted and patient was admitted to the floor. He was kept n.p.o. and NGT was placed. He was placed on a heparin drip for subtherapeutic INR. Today Halicat was called as patient became acutely hypoxemic. His O2 saturation went down to low 70s and was placed on 100% nonrebreather. Stat chest x-ray showed increasing interstitial edema and pulmonary vascular congestion indicating a CHF exacerbation. I evaluated the patient in the ICU. He is in a moderate respiratory distress currently on 100% nonrebreather. Physical exam revealed elevated JVD and bibasilar crackles. It appears that patient has acute systolic heart failure exacerbation. I will give IV Lasix 40 mg 1 now and scheduled 40 every 12. If his condition does not improve with the above measures patient may need endotracheal intubation, he is not a candidate for BiPAP due to significant small bowel obstruction and risk of aspiration. SB series is pending at this time, and Dr. Murray thinks it is ileus. Start IV Reglan, keep K>4 SUBJ 05/15/17: Remains on partial nonrebreather desaturates when placed on Ventimask 50%. He claims that he is breathing more comfortably. With IV Lasix made 1 L urine overnight. Started on Reglan yesterday ileus persist. Increase Reglan to 10 mg every 8. Small bowel series showing high grade obstruction. 05/16: Supplemental O2 down to 5 liters. Bowel is opening up, no surgery planned. Transfer. 05/20: Patient has developed what appears to be complete colon obstruction with severe dilation extending into small bowel. Now dehydrated with prerenal azotemia and electrolyte imbalance. We will bring him to the ICU, intubate, hydrate, place NG tube, correct electrolytes and generally maximize his physiological status as best as can be accomplished for a patient with COPD and baseline EF 25%. He requires laparotomy and colon resection for probable ischemic bowel. Patient agrees to surgery and wants continued aggressive care. I intubated patient after arrival to ICU and placed central line. Aggressive resuscitation started. Discussed with general surgery. Also has severe hypokalemia, potassium is 2.3 05/21: Patient having BMs. Abdomen soft, will continue to decompress from above. 05/22: BMs persist. Bowel gas resolving. Cardiopulmonary status critical. 05/23: Gas exchange and fluid balance about right; start attempts to extubate. 05/24: Stronger on SBTs. Glucose intolerance persists. Increase TFs to 20/hr, reduce TPN to 60 ml/hr. Still having stools. 05/25: Continued hemoptysis which started when patient was on heparin gtt for a- fib. Heparin has been off for 36 hours. Meets criteria to extubate but will wait for hemoptysis to clear. His COPD and LV dysfunction combine to complicate his respiratory status irregardless, but we can at least not throw hemoptysis into the mix. He may require diagnostic bronch followed by trach for halfway care. 05/26: Remains sedated, orally intubated on mechanical ventilation. On critical tube feeds. Surgery has signed off. Plan to advance tube feeds and titrated off TPN. Objective Vital Signs Date Time Temp Pulse Resp B/P (MAP) Pulse Ox O2 Delivery O2 Flow Rate FiO2 05/26/17 06:00 106 05/26/17 04:53 98 40 05/26/17 04:00 99.1 18 142/66 (91) 05/25/17 19:00 Mechanical Ventilator 05/23/17 09:15 15.00 Intake and Output 05/26/17 05/26/17 05/27/17 08:00 16:00 00:00 Intake Total 2436 ml Output Total 575 ml Balance 1861 ml Result Diagram: 05/26/17 0500 05/26/17 0500 Imaging Chest x-ray shows bilateral pulmonary vascular congestion and atelectasis Objective Remarks GENERAL: Elderly male. SKIN: warm/dry. HEAD: Atraumatic. Normocephalic. EYES: No scleral icterus. No injection or drainage. ENT: No nasal bleeding or discharge Mucous membranes moist. NECK: Trachea midline. Supple. Neck veins not distended. CARDIOVASCULAR: S1-S2, no m,r. Irregular, rate controlled. RESPIRATORY: Breath sounds equal bilaterally with no crackles, no wheezes. GASTROINTESTINAL: Abdomen soft moderately distended. No tenderness, BS present. MUSCULOSKELETAL: 1+ edema feet. Bilateral chronic venous normal when light. Well perfused. NEURO: Opens eyes, moves 4 limbs. Nods head to questions. Gestures with hands. A/P Assessment and Plan ASSESSMENT: Acute hypoxemic respiratory failure Colonic ileus, small bowel obstruction Severe hypokalemia Chronic systolic heart failure exacerbation COPD Cardiomyopathy EF 20-25% COPD on home oxygen Bilateral DVT Chronic atrial fibrillation Malnutrition Hemoptysis. PLAN: NEURO: -Post intubation propofol for sedation and vent synchrony -Avoid opiates due to ileus -Wean off propofol sedation RESP: -CPAP trials. -Intubated and placed on mechanical ventilation for hypoxemia and to facilitate resuscitation -Vent bundle. DuoNeb every 4 hours scheduled and as needed -Solu-Medrol 60 every 6 hours, hold prednisone -> decrease -d/c empiric Levaquin for COPD exacerbation CV: -Restart Lasix. Hold Aldactone -Taper levophed to keep map above 65 -Chest x-ray previously showed worsening interstitial edema -Currently holding Coreg and Cardizem and lisinopril for CHF and A. fib. -off heparin due to hemoptysis GI: -Dr. Murray following for small bowel obstruction, colonic ileus -> resolved. -Started trickle tube feeds. Advance as tolerated. If patient tolerates advancing tube feeds. TPN -Surgery has signed off -TFs to 20 ml/hr : -Monitor renal function closely. Faulkner catheter. -s/p aggressive resuscitation -Restart Lasix 05/23 ID: -Continue empiric Levaquin and d/c Flagyl used when colon was dilated/?ischemic HEME: -Monitor CBC, CMP, coags -Hold IV heparin ENDO: -Electrolyte replacement per ICU protocol PROPH: -Bilateral lower extremity SCDs. IV heparin-currently on hold. IV famotidine LINES: -Utilize peripheral IVs, placed right subclavian central line Overall impression: Hemoptysis persists, but markedly reduced. Compensated systolic heart failure. Resolving massive colon distention and proximal small bowel obstruction/dilation. Large fluid and electrolyte losses. Chronic systolic heart failure and non-exacerbated COPD. Small new right upper lobe infiltrate. Risk markedly elevated due to comorbid conditions. Suitably diuresed , extubate when hemoptysis stops. Howard Lynn MD May 26, 2017 07:49
[2017-05-26] MEDS: DOCUSATE SODIUM 100 MG/10 ML UDC PO SCH ×2 (09:00→20:51)
[2017-05-26] MEDS: BISACODYL 10 MG SUPP RECTAL SCH (09:00)
[2017-05-26] MEDS: INSULIN DETEMIR 100 UNITS/ML VIAL SQ SCH ×2 (09:00→20:52)
[2017-05-26 09:30] LABS: PLATELET COUNT 157 TH/MM3 (150-450); WHITE BLOOD COUNT 22.9 TH/MM3 (4.0-11.0)
[2017-05-26] MEDS: CHLORHEXIDINE 0.12% (ORAL KIT) 15 ML CUP MT SCH ×2 (11:34→19:59)
[2017-05-26] MEDS: SODIUM CHLORIDE 0.9% FLUSH 10 ML FLUSH IV FLUSH SCH ×2 (11:35→20:51)
[2017-05-26] MEDS: FUROSEMIDE 40 MG/4 ML VIAL IV PUSH SCH (11:35)
[2017-05-26] MEDS: COLLAGENASE OINT 30 GM TUBE TOPICAL SCH (11:36)
--- NOTE | 2017-05-26 15:45 | HHI.HCPN ---
Reason for visit a. To assist with evaluation and management of symptoms including: Abdominal pain, shortness of breath, debility. b. To assist medical decision maker(s) with: better understanding of current medical conditions; weighing benefits/burdens of medical treatment options; making medical treatment decisions. . Subjective/Interval History Palliative care follow-up for further clarifications of goals of care. Patient remains endotracheally intubated on mechanical ventilation, Currently day #7. Patient on CPAP, 40% FiO2. It appears that bowel obstruction is resolving, patient tolerating tube feedings, currently 20 mL an hour. Remains on Clinimix. Patient afebrile, stable hemodynamically. Chest x-ray today revealing unchanged patchy parenchymal consolidations. Laboratory workup revealing persistent leukocytosis 20.9, Hgb stable at 14.9, platelet count 157. BUN/creatinine 53/0.82. Received telephone call from patient's cousin/healthcare surrogate Kathie Burnett. Medical update provided. Goal of therapy remain aggressive, attempt medical extubation. Receptive to palliative care follow-ups as patient clinical course continues to evolve. Discussed that prognosis remains guarded at this time given severe cardiopulmonary disease. However, patient condition appears stable. Family not likely to trach/PEG if patient is unable to medically extubate given pt's known wishes. . Family/friend interactions See interval note. . Advance Directives Health Care Surrogate: Copy in medical record Advance Directive Specifics Date completed: 05/15/2017. . Health Care Surrogate(s): cousin Kathie Saavedra listed as healthcare surrogate decision maker. Alternate surrogate is cousin Dee Brandon. . Documented care wishes: Patient verbalized that in the event of being placed on life support, he would only allow 2 days and if no recovery, okay to "let him go" . Significant change in goals: Goals of therapy remain unchanged. . Objective Vital Signs Date Time Temp Pulse Resp B/P (MAP) Pulse Ox O2 Delivery O2 Flow Rate FiO2 05/26/17 12:00 98.9 95 15 145/91 (109) 100 05/26/17 12:00 40 05/26/17 08:32 98 40 05/26/17 08:32 40 05/26/17 08:30 40 05/26/17 08:00 40 05/26/17 08:00 92 05/26/17 08:00 98.8 92 14 97/60 (72) 98 05/26/17 07:00 98 Mechanical Ventilator 40 05/26/17 06:00 106 05/26/17 04:53 98 40 05/26/17 04:00 40 05/26/17 04:00 99.1 100 18 142/66 (91) 99 05/26/17 04:00 105 05/26/17 02:00 100 05/26/17 00:00 105 05/26/17 00:00 40 05/26/17 00:00 98.9 100 16 110/60 (77) 98 05/25/17 23:59 99 40 05/25/17 22:00 95 05/25/17 20:00 98.8 110 20 97/59 (72) 99 05/25/17 20:00 110 05/25/17 20:00 40 05/25/17 19:25 99 40 05/25/17 19:00 100 Mechanical Ventilator 40 05/25/17 18:00 101 05/25/17 16:05 107 05/25/17 16:00 40 05/25/17 16:00 99.1 107 20 136/81 (99) 100 Intake & Output 05/26/17 05/26/17 07:00 19:00 Intake Total 2414 ml 122 ml Output Total 575 ml Balance 1839 ml 122 ml IV Total 2100 ml 122 ml Tube Feeding 214 ml Other 100 ml Output Urine Total 550 ml Stool Total 0 ml Gastric Drainage Total 25 ml Physical Exam CONSTITUTIONAL/GENERAL: This is an adequately nourished patient, in no apparent distress. TUBES/LINES/DRAINS: ETT, OG, PIV, bilateral soft wrist restraints, Faulkner catheter. Rectal tube. SKIN: No jaundice, rashes. Skin temperature appropriate. Not diaphoretic. Nonhealing sores to bilateral lower extremities. HEAD: Atraumatic. Normocephalic. EYES: Pupils equal and round and reactive. No scleral icterus. No injection or drainage. ENT: Nose without bleeding or purulent drainage. Moist oral mucosa. NECK: Trachea midline. Supple. CARDIOVASCULAR: Regular rate and rhythm. Peripheral pulses symmetric. Venous stasis to bilateral lower extremities. RESPIRATORY/CHEST: Symmetric, unlabored respirations. Coarse breath sounds bilaterally. Endotracheally intubated on mechanical ventilation. GASTROINTESTINAL: Abdomen large, round, soft. Active bowel sounds. GENITOURINARY: Without palpable bladder distension. Faulkner catheter in place. MUSCULOSKELETAL: Extremities without clubbing. Edema to bilateral upper and lower extremities. NEUROLOGICAL: Sedated. PSYCHIATRIC: Unable to evaluate secondary to condition. . Diagnostic Tests Laboratory Laboratory Tests Test 05/24/17 04:03 05/25/17 05:30 05/26/17 05:00 05/26/17 08:05 Blood Urea Nitrogen 36 MG/DL (7-18) 49 MG/DL (7-18) 53 MG/DL (7-18) Creatinine 0.75 MG/DL (0.60-1.30) 0.89 MG/DL (0.60-1.30) 0.82 MG/DL (0.60-1.30) Random Glucose 272 MG/DL (74-106) 218 MG/DL (74-106) 207 MG/DL (74-106) Calcium Level 8.0 MG/DL (8.5-10.1) 8.7 MG/DL (8.5-10.1) 8.4 MG/DL (8.5-10.1) Sodium Level 143 MEQ/L (136-145) 140 MEQ/L (136-145) 140 MEQ/L (136-145) Potassium Level 4.2 MEQ/L (3.5-5.1) 4.7 MEQ/L (3.5-5.1) 4.6 MEQ/L (3.5-5.1) Chloride Level 104 MEQ/L (98-107) 101 MEQ/L (98-107) 103 MEQ/L (98-107) Carbon Dioxide Level 36.0 MEQ/L (21.0-32.0) 32.9 MEQ/L (21.0-32.0) 34.4 MEQ/L (21.0-32.0) Anion Gap 3 MEQ/L (5-15) 6 MEQ/L (5-15) 3 MEQ/L (5-15) Estimat Glomerular Filtration Rate 124 ML/MIN (>89) 102 ML/MIN (>89) 112 ML/MIN (>89) B-Type Natriuretic Peptide 156 PG/ML (0-100) White Blood Count 23.5 TH/MM3 (4.0-11.0) 22.9 TH/MM3 (4.0-11.0) Red Blood Count 4.79 MIL/MM3 (4.50-5.90) 5.06 MIL/MM3 (4.50-5.90) Hemoglobin 14.0 GM/DL (13.0-17.0) 14.9 GM/DL (13.0-17.0) Hematocrit 42.6 % (39.0-51.0) 45.0 % (39.0-51.0) Mean Corpuscular Volume 89.0 FL (80.0-100.0) 88.9 FL (80.0-100.0) Mean Corpuscular Hemoglobin 29.2 PG (27.0-34.0) 29.5 PG (27.0-34.0) Mean Corpuscular Hemoglobin Concent 32.8 % (32.0-36.0) 33.1 % (32.0-36.0) Red Cell Distribution Width 17.4 % (11.6-17.2) 17.1 % (11.6-17.2) Platelet Count 86 TH/MM3 (150-450) 157 TH/MM3 (150-450) Mean Platelet Volume 10.7 FL (7.0-11.0) 9.9 FL (7.0-11.0) Phosphorus Level 2.1 MG/DL (2.5-4.9) Magnesium Level 2.6 MG/DL (1.5-2.5) Neutrophils (%) (Auto) 87.5 % (16.0-70.0) Lymphocytes (%) (Auto) 1.4 % (9.0-44.0) Monocytes (%) (Auto) 10.3 % (0.0-8.0) Eosinophils (%) (Auto) 0.7 % (0.0-4.0) Basophils (%) (Auto) 0.1 % (0.0-2.0) Neutrophils # (Auto) 24.2 TH/MM3 (1.8-7.7) Lymphocytes # (Auto) 0.4 TH/MM3 (1.0-4.8) Monocytes # (Auto) 2.8 TH/MM3 (0-0.9) Eosinophils # (Auto) 0.2 TH/MM3 (0-0.4) Basophils # (Auto) 0.0 TH/MM3 (0-0.2) CBC Comment AUTO DIFF Differential Comment AUTO DIFF CONFIRMED Platelet Estimate NORMAL (NORMAL) Platelet Morphology Comment CLUMPED (NORMAL) Result Diagram: 05/26/17 0805 05/26/17 0500 Imaging Last 48 hours Impressions Chest X-Ray 05/26/17 0000 Signed Impressions: Service Date/Time: Friday, May 26, 2017 04:50 - CONCLUSION: Unchanged patchy parenchymal consolidations. Luis Marmolejo Jr., MD Chest X-Ray 05/25/17 0600 Signed Impressions: Service Date/Time: Thursday, May 25, 2017 04:39 - CONCLUSION: No significant change. Mild bibasilar consolidation persists. Kush Thomas MD Procedures * 05/20/17 -endotracheally intubated . Assessment and Plan Disease Oriented Problem List: (1) Acute hypoxemic respiratory failure (2) Small bowel obstruction (3) COPD (chronic obstructive pulmonary disease) (4) Systolic heart failure (5) Cardiomyopathy (6) Leg ulcer, left Symptom Scale: (1) Abdominal pain 0-10 Scale: Unable to quantify (2) Dyspnea 0-10 Scale: Unable to quantify Pertinent Non-Medical Issues Psychosocial: Patient is single, never . No children. [employer] , disabled secondary to PTSD. Patient was born and raised in [place]. Highest level of education is high school. Patient has 2 siblings in the area, one cousin that lives in [place]. Spiritual: No scientologist affiliation. Legal: Advance directives completed. Ethical issues impacting care: No ethical issues identified. . Important Contacts HCS/cousin Kathie Saavedra . Alternate surrogate/cousin Dee Taylor . . Prognosis Mr. Rocha is a 72-year-old male with a medical history significant for CHF, COPD, atrial fibrillation, medication noncompliance. Patient with significant progression of cardiopulmonary disease. He is O2 dependent, EF of 20%. Patient admitted for small bowel obstruction, somewhat improving. However, patient remains at high risk for further complications, continued decline and . Patient appears hospice appropriate should he elects comfort-directed care given significant cardiopulmonary disease. . Code Status: Full Code Plan * CODE STATUS: Full code. * HEALTHCARE DECISION-MAKING: Patient unable to participating medical decision making at this time secondary to clinical condition, sedated, intubated. Advance directives completed. Patient has designated is cousin Kathie Saavedra as healthcare surrogate decision maker, alternate is cousin Dee Taylor. * GOALS OF CARE: Goals remain aggressive, continue attempts at medical extubation. Patient's cousin Kathie Saavedra acting as healthcare surrogate decision making is wishing to allow a few more days for clinical improvement. Discussed that prognosis remains guarded at this time given severe cardiopulmonary disease. Family not likely to trach/PEG if patient is unable to medically extubate given pt's known wishes as stated in advance directives. * SYMPTOMS: = Abdominal pain, secondary to SBO. Resolving. = Shortness of breath: Secondary to COPD, CHF exacerbation. Currently intubated on mechanical ventilation. Currently tolerating CPAP. = Debility: chronic. Rehabilitation was recommended during prior admission, patient declined. PT following during this admission, home with home health recommended. * Palliative care contact information has been provided to patient and family. * Palliative care will continue to follow up for further clarification of goals of care as patient's clinical course continues to evolve. . Time Spent Total Floor Time (mins): 32 (Total time to include review medical records, physical exam, goals of care conversation with patient's cousin. ) >50% Counseling/Coord of Care: Yes Attestation To help prompt me to consider important information that might be impacting today's encounter and assessment, information from prior notes written by myself or my colleagues may have been "brought forward" into today's note. My signature on this note, however, is an attestation that I personally performed the exam, history, and/or decision-making noted today, and, unless otherwise indicated, the interactions with patient, family, and staff as well as the review of records all occurred today. I also attest that the listed assessment and stated plan reflect my best clinical judgment today based on the combination of historical information, prior notes, and today's exam/ interactions. When time spent is documented, it refers only to time spent today by the signer, or if indicated, combined time spent today by collaborating physician/nurse practitioner. Areli Dunaway May 26, 2017 15:45
--- NOTE | 2017-05-26 16:08 | HHI.PR ---
Subjective Remarks ON THE VENT sedated Objective Vital Signs Date Time Temp Pulse Resp B/P (MAP) Pulse Ox O2 Delivery O2 Flow Rate FiO2 05/26/17 12:00 98.9 95 15 145/91 (109) 100 05/26/17 12:00 40 05/26/17 08:32 98 40 05/26/17 08:32 40 05/26/17 08:30 40 05/26/17 08:00 40 05/26/17 08:00 92 05/26/17 08:00 98.8 92 14 97/60 (72) 98 05/26/17 07:00 98 Mechanical Ventilator 40 05/26/17 06:00 106 05/26/17 04:53 98 40 05/26/17 04:00 40 05/26/17 04:00 99.1 100 18 142/66 (91) 99 05/26/17 04:00 105 05/26/17 02:00 100 05/26/17 00:00 105 05/26/17 00:00 40 05/26/17 00:00 98.9 100 16 110/60 (77) 98 05/25/17 23:59 99 40 05/25/17 22:00 95 05/25/17 20:00 98.8 110 20 97/59 (72) 99 05/25/17 20:00 110 05/25/17 20:00 40 05/25/17 19:25 99 40 05/25/17 19:00 100 Mechanical Ventilator 40 05/25/17 18:00 101 I/O 05/25/17 05/25/17 05/25/17 05/26/17 05/26/17 05/26/17 07:00 15:00 23:00 07:00 15:00 23:00 Intake Total 1255 ml 100 ml 1353 ml 2414 ml 122 ml Output Total 400 ml 20.0 ml 1050 ml 575 ml Balance 855 ml 80.0 ml 303 ml 1839 ml 122 ml IV Total 1000 ml 100 ml 1000 ml 2100 ml 122 ml Tube Feeding 195 ml 253 ml 214 ml Tube Irrigant 100 ml Other 60 ml 100 ml Output Urine Total 350 ml 1000 ml 550 ml Stool Total 50 ml 50 ml 0 ml Gastric Drainage Total 25 ml Tube Feeding Residual Discard 20.0 ml Result Diagram: 05/26/17 0805 3/12/18 0500 Objective Remarks GENERAL: sedated on ventilator SKIN: Warm and dry. HEAD: Atraumatic. Normocephalic. EYES: Pupils equal and round. No scleral icterus. No injection or drainage. ENT: No nasal bleeding or discharge. Mucous membranes pink and moist. NECK: Trachea midline. No JVD. CARDIOVASCULAR: Regular rate and rhythm. RESPIRATORY: No accessory muscle use. Clear to auscultation. Breath sounds equal bilaterally. GASTROINTESTINAL: Abdomen soft, non-tender, nondistended. Hepatic and splenic margins not palpable. MUSCULOSKELETAL: Extremities without clubbing, cyanosis, or edema. No obvious deformities. NEUROLOGICAL: Awake and alert. No obvious cranial nerve deficits. Motor grossly within normal limits. Five out of 5 muscle strength in the arms and legs. Normal speech. PSYCHIATRIC: Appropriate mood and affect; insight and judgment normal. Assessment and Plan Assessment and Plan assessment respiratory failure bowel obstruction ? PNA COPD CHF HTN HLD PLAN VENT SUPPORT, WEAN TOLERATED ANTIBX PULM TOILET prognosis guarded/poor f/u cxray Tania Marin MD May 26, 2017 16:08
[2017-05-26] MEDS: SODIUM PHOSPHATE INJ 30 MMOL in SODIUM CHLOR 0.9% 250 ML INJ 240 ML IV PRN (20:54)
[2017-05-27] VITALS (15 sets, daily range): BP systolic 106–149; BP diastolic 68–97; PULSE 81–115; RESP 14–20; TEMP 97.8–99.1; O2SAT 91–100
[2017-05-27] MEDS: INSULIN ASPART SUPPLEMENTAL SCALE SQ SCH ×4 (00:10→18:00)
[2017-05-27] MEDS: PROPOFOL 1000 MG/100 ML INJ 100 ML IV PRN (01:55)
[2017-05-27] MEDS: METOCLOPRAMIDE HCL 10 MG/2 ML VIAL IV PUSH SCH ×3 (05:15→21:40)
[2017-05-27] MEDS: methylPREDNISolone SOD SUCC 40 MG/1 ML VIAL IV PUSH SCH ×3 (05:15→21:39)
[2017-05-27] MEDS: CHLORHEXIDINE 0.12% (ORAL KIT) 15 ML CUP MT SCH ×2 (08:00→20:00)
[2017-05-27] MEDS: INSULIN DETEMIR 100 UNITS/ML VIAL SQ SCH ×2 (09:17→21:40)
[2017-05-27] MEDS: DOCUSATE SODIUM 100 MG/10 ML UDC PO SCH ×2 (09:17→21:39)
[2017-05-27] MEDS: FUROSEMIDE 40 MG/4 ML VIAL IV PUSH SCH (09:17)
[2017-05-27] MEDS: BISACODYL 10 MG SUPP RECTAL SCH (09:17)
[2017-05-27] MEDS: SODIUM CHLORIDE 0.9% FLUSH 10 ML FLUSH IV FLUSH SCH ×2 (09:17→21:40)
[2017-05-27] MEDS: COLLAGENASE OINT 30 GM TUBE TOPICAL SCH (09:17)
--- NOTE | 2017-05-27 10:16 | HHI.CCPN ---
Subjective Remarks/Hospital Course Patient is a 72-year-old -[place]i male with past medical history significant for COPD on home oxygen, chronic systolic heart failure EF 20-25%, chronic atrial fibrillation, bilateral lower extremity DVT on Coumadin, who was admitted to the hospitalist service on 05/13/2017 with history of nausea, vomiting with no diarrhea, not passing gas or stools for last 2 days. ER workup which included a CT of the abdomen pelvis showed small bowel obstruction which was high-grade. General surgery was consulted and patient was admitted to the floor. He was kept n.p.o. and NGT was placed. He was placed on a heparin drip for subtherapeutic INR. Today Halicat was called as patient became acutely hypoxemic. His O2 saturation went down to low 70s and was placed on 100% nonrebreather. Stat chest x-ray showed increasing interstitial edema and pulmonary vascular congestion indicating a CHF exacerbation. I evaluated the patient in the ICU. He is in a moderate respiratory distress currently on 100% nonrebreather. Physical exam revealed elevated JVD and bibasilar crackles. It appears that patient has acute systolic heart failure exacerbation. I will give IV Lasix 40 mg 1 now and scheduled 40 every 12. If his condition does not improve with the above measures patient may need endotracheal intubation, he is not a candidate for BiPAP due to significant small bowel obstruction and risk of aspiration. SB series is pending at this time, and Dr. Murray thinks it is ileus. Start IV Reglan, keep K>4 SUBJ 05/15/17: Remains on partial nonrebreather desaturates when placed on Ventimask 50%. He claims that he is breathing more comfortably. With IV Lasix made 1 L urine overnight. Started on Reglan yesterday ileus persist. Increase Reglan to 10 mg every 8. Small bowel series showing high grade obstruction. 05/16: Supplemental O2 down to 5 liters. Bowel is opening up, no surgery planned. Transfer. 05/20: Patient has developed what appears to be complete colon obstruction with severe dilation extending into small bowel. Now dehydrated with prerenal azotemia and electrolyte imbalance. We will bring him to the ICU, intubate, hydrate, place NG tube, correct electrolytes and generally maximize his physiological status as best as can be accomplished for a patient with COPD and baseline EF 25%. He requires laparotomy and colon resection for probable ischemic bowel. Patient agrees to surgery and wants continued aggressive care. I intubated patient after arrival to ICU and placed central line. Aggressive resuscitation started. Discussed with general surgery. Also has severe hypokalemia, potassium is 2.3 05/21: Patient having BMs. Abdomen soft, will continue to decompress from above. 05/22: BMs persist. Bowel gas resolving. Cardiopulmonary status critical. 05/23: Gas exchange and fluid balance about right; start attempts to extubate. 05/24: Stronger on SBTs. Glucose intolerance persists. Increase TFs to 20/hr, reduce TPN to 60 ml/hr. Still having stools. 05/25: Continued hemoptysis which started when patient was on heparin gtt for a- fib. Heparin has been off for 36 hours. Meets criteria to extubate but will wait for hemoptysis to clear. His COPD and LV dysfunction combine to complicate his respiratory status irregardless, but we can at least not throw hemoptysis into the mix. He may require diagnostic bronch followed by trach for assisted care. 05/26: Remains sedated, orally intubated on mechanical ventilation. On trickle tube feeds. Surgery has signed off. Plan to advance tube feeds and titrate off TPN. 05/27: Dated, arousable, orally intubated on mechanical ventilation. Plan to advance tube feeds. Plan to place OG tube and NG tube prior to attempting extubation Objective Vital Signs Date Time Temp Pulse Resp B/P (MAP) Pulse Ox O2 Delivery O2 Flow Rate FiO2 05/27/17 08:18 100 40 05/27/17 06:00 91 05/27/17 04:00 98.4 14 106/68 (81) 05/26/17 19:00 Mechanical Ventilator 05/23/17 09:15 15.00 Intake and Output 05/27/17 05/27/17 05/28/17 08:00 16:00 00:00 Intake Total 1234 ml Output Total 1825 ml Balance -591 ml Result Diagram: 05/26/17 0805 05/26/17 0500 Imaging Chest x-ray shows bilateral pulmonary vascular congestion and atelectasis Objective Remarks HEENT/ Neuro: Sedated, orally intubated, Pallor present, no icterus, tongue/ mucosa dry Neck: No JVD Chest/Pulm: on mech vent, good air entry bilaterally, no wheezing or crackles CVS: S1-S2 regular, no murmur GI/abdomen: soft, nontender, minimal distention, bowel sounds sluggish Extremities: warm bilaterally, trace edema A/P Assessment and Plan ASSESSMENT: Acute hypoxemic respiratory failure Colonic ileus, small bowel obstruction Severe hypokalemia Chronic systolic heart failure exacerbation COPD Cardiomyopathy EF 20-25% COPD on home oxygen Bilateral DVT Chronic atrial fibrillation Malnutrition Hemoptysis. PLAN: NEURO: -Post intubation propofol for sedation and vent synchrony -Avoid opiates due to ileus -Wean off propofol sedation RESP: -CPAP trials. -Intubated and placed on mechanical ventilation for hypoxemia and to facilitate resuscitation -Vent bundle. DuoNeb every 4 hours scheduled and as needed -Solu-Medrol 60 every 6 hours, hold prednisone -> decrease -d/c empiric Levaquin for COPD exacerbation CV: -Restart Lasix. Hold Aldactone -Off Levophed -Chest x-ray previously showed worsening interstitial edema -Currently holding Coreg and Cardizem and lisinopril for CHF and A. fib. -off heparin due to hemoptysis GI: -Dr. Murray following for small bowel obstruction, colonic ileus -> resolved. -Started trickle tube feeds. Advance as tolerated. If patient tolerates advancing tube feeds stop TPN -Surgery has signed off -TFs to 20 ml/hr : -Monitor renal function closely. Faulkner catheter. -s/p aggressive resuscitation -Restart Lasix 05/23 ID: -Continue empiric Levaquin and d/c Flagyl used when colon was dilated/?ischemic HEME: -Monitor CBC, CMP, coags -Hold IV heparin ENDO: -Electrolyte replacement per ICU protocol PROPH: -Bilateral lower extremity SCDs. IV heparin-currently on hold. IV famotidine LINES: -Utilize peripheral IVs, placed right subclavian central line Overall impression: Hemoptysis persists, but markedly reduced. Compensated systolic heart failure. Resolving massive colon distention and proximal small bowel obstruction/dilation. Large fluid and electrolyte losses. Chronic systolic heart failure and non-exacerbated COPD. Small new right upper lobe infiltrate. Risk markedly elevated due to comorbid conditions. Suitably diuresed , extubate when hemoptysis stops. Howard Lynn MD May 27, 2017 10:16
--- NOTE | 2017-05-27 10:30 | MB ---
cc: Shanique Childs MD DATE OF CONSULT: 05/27/2017 HISTORY: He is [id number] with a history of pain admitted for bowel obstruction and pneumonia. He has been treated for DVTs and he has been intubated. The patient has a history of atrial fibrillation on long-term Coumadin with a low ejection fraction. Discussed briefly with Dr. Lynn. It appears that the patient might be extubated today. Actually the reason for the neurological consultation was uncertain. The patient was intubated and actually seemed to follow simple commands. He did airplane designer bilaterally. He would not move the lower extremities on commands, but upon some moderate stimulation, he withdrew both lower extremities. He may have some foot drop bilaterally, although difficulty to determine. Reflexes were diminished, but some reflex is present at the knees and the elbows, absent at the ankles, plantar response is none versus flexor. ASSESSMENT: Encephalopathy from multiple medical problems and medication. He is intubated and there is a plan for extubation today. If there is any suggestion of a neurological impairment, different from baseline after the patient is extubated, then I would be happy to reevaluate him. In such as case, we will then need to proceed with imaging studies of the brain, either MRI or CT to determine the possibility of any acute neurologic event. Discussed with Dr. Lynn. Thank you for asking us to participate in his care. Shanique Childs MD OFC/DL , 09:36 AM , 10:29 AM
[2017-05-27] MEDS: SODIUM CHLORIDE 23.4% INJ 5.5 MEQ, SODIUM ACETATE INJ 29.5 MEQ, POTASSIUM CHLORIDE INJ ... IV-CENTRAL SCH ×8 (15:52)
--- NOTE | 2017-05-27 16:39 | HHI.HCPN ---
Reason for visit a. To assist with evaluation and management of symptoms including: Abdominal pain, shortness of breath, debility. b. To assist medical decision maker(s) with: better understanding of current medical conditions; weighing benefits/burdens of medical treatment options; making medical treatment decisions. . Subjective/Interval History Palliative care follow-up for further clarifications of goals of care. Medically extubated today, remains encephalopathic. Briefly opening eyes to verbal stimuli, not attempting to communicate or following any commands. Neurology, Dr. Childs consulted. Patient remains afebrile, stable hemodynamically. Currently tolerating O2 via nasal cannula 4 L. Amount of oral secretions requiring suctioning noted. No new imaging or laboratory for review. Telephone conversation with patient's cousin/healthcare surrogate Kathie Cagle Lex. Medical update provided. Reviewed that palliative care is unable to readdress goals of care/CODE STATUS with patient given encephalopathy. We will attempt tomorrow. Goal of therapy remain aggressive, cousin hopeful that patient can participate in medical decision making. However, she is receptive to palliative care follow-ups as patient clinical course continues to evolve. Discussed that prognosis remains guarded at this time given severe cardiopulmonary disease. High risk for reintubation. . Family/friend interactions See interval note. . Advance Directives Health Care Surrogate: Copy in medical record Advance Directive Specifics Date completed: 05/15/2017. . Health Care Surrogate(s): cousin Kathie Gravesley listed as healthcare surrogate decision maker. Alternate surrogate is cousin Dee Brandon. . Documented care wishes: Patient verbalized that in the event of being placed on life support, he would only allow 2 days and if no recovery, okay to "let him go" . Significant change in goals: Goals of CARE remain aggressive. . Objective Vital Signs Date Time Temp Pulse Resp B/P (MAP) Pulse Ox O2 Delivery O2 Flow Rate FiO2 05/27/17 13:07 95 Nasal Cannula 4.00 05/27/17 12:33 99 40 05/27/17 12:15 40 05/27/17 12:00 98.1 106 17 136/86 (103) 99 05/27/17 12:00 106 05/27/17 10:10 40 05/27/17 09:00 40 05/27/17 08:18 100 40 05/27/17 08:00 98.6 81 16 147/97 (114) 100 05/27/17 08:00 40 05/27/17 08:00 81 05/27/17 06:00 91 05/27/17 04:24 100 40 05/27/17 04:00 90 05/27/17 04:00 40 05/27/17 04:00 98.4 90 14 106/68 (81) 99 05/27/17 02:00 91 05/27/17 00:35 97 40 05/27/17 00:00 92 05/27/17 00:00 40 05/27/17 00:00 98.8 92 18 119/72 (88) 99 05/26/17 22:00 94 05/26/17 21:29 98 40 05/26/17 20:00 98.9 99 17 94/60 (71) 99 05/26/17 20:00 40 05/26/17 20:00 99 05/26/17 19:00 98 Mechanical Ventilator 40 05/26/17 18:00 100 Intake & Output 05/27/17 05/27/17 07:00 19:00 Intake Total 1918.0719 ml Output Total 1825 ml 0 ml Balance 93.0719 ml 0 ml IV Total 1664.0719 ml Tube Feeding 194 ml Tube Irrigant 60 ml Output Urine Total 1800 ml Stool Total 25 ml Tube Feeding Residual Discard 0 ml Physical Exam CONSTITUTIONAL/GENERAL: This is an adequately nourished patient, in no apparent distress. TUBES/LINES/DRAINS: PIV, NC, Faulkner catheter. Rectal tube. SKIN: No jaundice, rashes. Skin temperature appropriate. Not diaphoretic. Nonhealing sores to bilateral lower extremities. HEAD: Atraumatic. Normocephalic. EYES: Pupils equal and round and reactive. No scleral icterus. No injection or drainage. ENT: Nose without bleeding or purulent drainage. Moist oral mucosa. Moderate amount of clear oral pharyngeal secretions requiring frequent suctioning. NECK: Trachea midline. Supple. CARDIOVASCULAR: Regular rate and rhythm. Peripheral pulses symmetric. Venous stasis to bilateral lower extremities. RESPIRATORY/CHEST: Symmetric, unlabored respirations. Coarse breath sounds bilaterally. O2 via nasal cannula. GASTROINTESTINAL: Abdomen large, round, soft. Active bowel sounds. GENITOURINARY: Without palpable bladder distension. Faulkner catheter in place. MUSCULOSKELETAL: Extremities without clubbing. Edema to bilateral upper and lower extremities. NEUROLOGICAL: Briefly opening eyes to verbal stimuli. Not following commands or communicating. PSYCHIATRIC: Unable to evaluate secondary to condition. Appears calm. . Diagnostic Tests Laboratory Laboratory Tests Test 05/25/17 05:30 05/26/17 05:00 05/26/17 08:05 05/27/17 09:05 White Blood Count 23.5 TH/MM3 (4.0-11.0) 22.9 TH/MM3 (4.0-11.0) Red Blood Count 4.79 MIL/MM3 (4.50-5.90) 5.06 MIL/MM3 (4.50-5.90) Hemoglobin 14.0 GM/DL (13.0-17.0) 14.9 GM/DL (13.0-17.0) Hematocrit 42.6 % (39.0-51.0) 45.0 % (39.0-51.0) Mean Corpuscular Volume 89.0 FL (80.0-100.0) 88.9 FL (80.0-100.0) Mean Corpuscular Hemoglobin 29.2 PG (27.0-34.0) 29.5 PG (27.0-34.0) Mean Corpuscular Hemoglobin Concent 32.8 % (32.0-36.0) 33.1 % (32.0-36.0) Red Cell Distribution Width 17.4 % (11.6-17.2) 17.1 % (11.6-17.2) Platelet Count 86 TH/MM3 (150-450) 157 TH/MM3 (150-450) Mean Platelet Volume 10.7 FL (7.0-11.0) 9.9 FL (7.0-11.0) Blood Urea Nitrogen 49 MG/DL (7-18) 53 MG/DL (7-18) Creatinine 0.89 MG/DL (0.60-1.30) 0.82 MG/DL (0.60-1.30) Random Glucose 218 MG/DL (74-106) 207 MG/DL (74-106) Calcium Level 8.7 MG/DL (8.5-10.1) 8.4 MG/DL (8.5-10.1) Sodium Level 140 MEQ/L (136-145) 140 MEQ/L (136-145) Potassium Level 4.7 MEQ/L (3.5-5.1) 4.6 MEQ/L (3.5-5.1) Chloride Level 101 MEQ/L (98-107) 103 MEQ/L (98-107) Carbon Dioxide Level 32.9 MEQ/L (21.0-32.0) 34.4 MEQ/L (21.0-32.0) Anion Gap 6 MEQ/L (5-15) 3 MEQ/L (5-15) Estimat Glomerular Filtration Rate 102 ML/MIN (>89) 112 ML/MIN (>89) Phosphorus Level 2.1 MG/DL (2.5-4.9) 3.9 MG/DL (2.5-4.9) Magnesium Level 2.6 MG/DL (1.5-2.5) Neutrophils (%) (Auto) 87.5 % (16.0-70.0) Lymphocytes (%) (Auto) 1.4 % (9.0-44.0) Monocytes (%) (Auto) 10.3 % (0.0-8.0) Eosinophils (%) (Auto) 0.7 % (0.0-4.0) Basophils (%) (Auto) 0.1 % (0.0-2.0) Neutrophils # (Auto) 24.2 TH/MM3 (1.8-7.7) Lymphocytes # (Auto) 0.4 TH/MM3 (1.0-4.8) Monocytes # (Auto) 2.8 TH/MM3 (0-0.9) Eosinophils # (Auto) 0.2 TH/MM3 (0-0.4) Basophils # (Auto) 0.0 TH/MM3 (0-0.2) CBC Comment AUTO DIFF Differential Comment AUTO DIFF CONFIRMED Platelet Estimate NORMAL (NORMAL) Platelet Morphology Comment CLUMPED (NORMAL) Result Diagram: 05/26/17 0805 05/26/17 0500 Procedures * 05/20/17 -endotracheally intubated * 05/27/17 -medical extubation . Assessment and Plan Disease Oriented Problem List: (1) Acute hypoxemic respiratory failure (2) Small bowel obstruction (3) COPD (chronic obstructive pulmonary disease) (4) Systolic heart failure (5) Cardiomyopathy (6) Leg ulcer, left Symptom Scale: (1) Abdominal pain 0-10 Scale: Unable to quantify (2) Dyspnea 0-10 Scale: Unable to quantify Pertinent Non-Medical Issues Psychosocial: Patient is single, never . No children. [employer] , disabled secondary to PTSD. Patient was born and raised in [place]. Highest level of education is high school. Patient has 2 siblings in the area, one cousin that lives in [place]. Spiritual: No yazidi affiliation. Legal: Advance directives completed. Ethical issues impacting care: No ethical issues identified. . Important Contacts HCS/cousin Kathie Saavedra . Alternate surrogate/cousin Dee Taylor . . Prognosis Mr. Rocha is a 72-year-old male with a medical history significant for CHF, COPD, atrial fibrillation, medication noncompliance. Patient with significant progression of cardiopulmonary disease. He is O2 dependent, EF of 20%. Patient admitted for small bowel obstruction, somewhat improving. However, patient remains at high risk for further complications, continued decline and . Patient appears hospice appropriate should he elects comfort-directed care given significant cardiopulmonary disease. . Code Status: Full Code Plan * CODE STATUS: Full code. * HEALTHCARE DECISION-MAKING: Patient unable to participating medical decision making at this time secondary to clinical condition, remains encephalopathic status post medical extubation. Advance directives completed. Patient has designated is cousin Kathie Saavedra as healthcare surrogate decision maker , alternate is cousin Dee Taylor. * GOALS OF CARE: Goals remain aggressive. Palliative care unable to readdress goals of care/code status with patient given encephalopathy. As per cousin Mrs. Saavedra/[facility], goal of therapy remain aggressive. Cousin is hopeful that patient can participate in medical decision making. However, she is receptive to palliative care follow-ups if patient is unable to participate. Discussed that prognosis remains guarded at this time given severe cardiopulmonary disease. High risk for reintubation. * SYMPTOMS: = Abdominal pain, secondary to SBO. Resolving. = Shortness of breath: Secondary to COPD, CHF exacerbation. Medically extubated today, tolerating O2 via nasal cannula 4 L. = Debility: chronic. Rehabilitation was recommended during prior admission, patient declined. PT following during this admission, home with home health recommended. * Palliative care contact information has been provided to patient and family. * Palliative care will continue to follow up for further clarification of goals of care as patient's clinical course continues to evolve. . Time Spent Total Floor Time (mins): 23 (Total time to include review of medical records, physical exam, goals of care conversation with patient's cousin.) Areli Dunaway May 27, 2017 16:39
--- NOTE | 2017-05-27 16:44 | HHI.PR ---
Subjective Remarks ON THE VENT sedated Objective Vital Signs Date Time Temp Pulse Resp B/P (MAP) Pulse Ox O2 Delivery O2 Flow Rate FiO2 05/27/17 16:00 115 05/27/17 16:00 97.8 115 18 120/69 (86) 96 05/27/17 13:07 95 Nasal Cannula 4.00 05/27/17 12:33 99 40 05/27/17 12:15 40 05/27/17 12:00 98.1 106 17 136/86 (103) 99 05/27/17 12:00 106 05/27/17 10:10 40 05/27/17 09:00 40 05/27/17 08:18 100 40 05/27/17 08:00 98.6 81 16 147/97 (114) 100 05/27/17 08:00 40 05/27/17 08:00 81 05/27/17 06:00 91 05/27/17 04:24 100 40 05/27/17 04:00 90 05/27/17 04:00 40 05/27/17 04:00 98.4 90 14 106/68 (81) 99 05/27/17 02:00 91 05/27/17 00:35 97 40 05/27/17 00:00 92 05/27/17 00:00 40 05/27/17 00:00 98.8 92 18 119/72 (88) 99 05/26/17 22:00 94 05/26/17 21:29 98 40 05/26/17 20:00 98.9 99 17 94/60 (71) 99 05/26/17 20:00 40 05/26/17 20:00 99 05/26/17 19:00 98 Mechanical Ventilator 40 05/26/17 18:00 100 I/O 05/26/17 05/26/17 05/26/17 05/27/17 05/27/17 05/27/17 07:00 15:00 23:00 07:00 15:00 23:00 Intake Total 2414 ml 122 ml 2254.0719 ml 1234 ml Output Total 575 ml 1825 ml 1825 ml 0 ml Balance 1839 ml 122 ml 429.0719 ml -591 ml 0 ml IV Total 2100 ml 122 ml 2004.0719 ml 980 ml Tube Feeding 214 ml 250 ml 194 ml Tube Irrigant 60 ml Other 100 ml Output Urine Total 550 ml 1800 ml 1800 ml Stool Total 0 ml 25 ml 25 ml Gastric Drainage Total 25 ml Tube Feeding Residual Discard 0 ml Result Diagram: 05/26/17 0805 05/26/17 0500 Objective Remarks GENERAL: sedated on ventilator SKIN: Warm and dry. HEAD: Atraumatic. Normocephalic. EYES: Pupils equal and round. No scleral icterus. No injection or drainage. ENT: No nasal bleeding or discharge. Mucous membranes pink and moist. NECK: Trachea midline. No JVD. CARDIOVASCULAR: Regular rate and rhythm. RESPIRATORY: No accessory muscle use. Clear to auscultation. Breath sounds equal bilaterally. GASTROINTESTINAL: Abdomen soft, non-tender, nondistended. Hepatic and splenic margins not palpable. MUSCULOSKELETAL: Extremities without clubbing, cyanosis, or edema. No obvious deformities. NEUROLOGICAL: Awake and alert. No obvious cranial nerve deficits. Motor grossly within normal limits. Five out of 5 muscle strength in the arms and legs. Normal speech. PSYCHIATRIC: Appropriate mood and affect; insight and judgment normal. Medications and IVs GENERAL: SKIN: Warm and dry. HEAD: Atraumatic. Normocephalic. EYES: Pupils equal and round. No scleral icterus. No injection or drainage. ENT: No nasal bleeding or discharge. Mucous membranes pink and moist. NECK: Trachea midline. No JVD. CARDIOVASCULAR: Regular rate and rhythm. RESPIRATORY: No accessory muscle use. Clear to auscultation. Breath sounds equal bilaterally. GASTROINTESTINAL: Abdomen soft, non-tender, nondistended. Hepatic and splenic margins not palpable. MUSCULOSKELETAL: Extremities without clubbing, cyanosis, or edema. No obvious deformities. NEUROLOGICAL: Awake and alert. No obvious cranial nerve deficits. Motor grossly within normal limits. Five out of 5 muscle strength in the arms and legs. Normal speech. PSYCHIATRIC: Appropriate mood and affect; insight and judgment normal. Assessment and Plan Assessment and Plan assessment respiratory failure bowel obstruction CXRAY PNA SAME COPD CHF HTN HLD PLAN VENT SUPPORT, WEAN TOLERATED ANTIBX PULM TOILET prognosis guarded/poor f/u cxray Tania Marin MD May 27, 2017 16:44
[2017-05-27] MEDS: LORazepam 2 MG/ML VIAL IV PRN (21:39)
[2017-05-28] VITALS (14 sets, daily range): BP systolic 12–154; BP diastolic 61–99; PULSE 68–106; RESP 15–25; TEMP 98.3–99.4; O2SAT 90–97
[2017-05-28] MEDS: INSULIN ASPART SUPPLEMENTAL SCALE SQ SCH ×5 (01:11→23:00)
[2017-05-28] MEDS: SODIUM CHLORIDE 0.9% FLUSH 10 ML FLUSH IV FLUSH PRN (05:08)
[2017-05-28] MEDS: METOCLOPRAMIDE HCL 10 MG/2 ML VIAL IV PUSH SCH ×3 (05:08→21:11)
[2017-05-28] MEDS: methylPREDNISolone SOD SUCC 40 MG/1 ML VIAL IV PUSH SCH ×3 (05:08→21:11)
[2017-05-28 05:34] LABS: HEMATOCRIT 43.7 % (39.0-51.0); HEMOGLOBIN 14.5 GM/DL (13.0-17.0); MEAN CELL VOLUME 87.5 FL (80.0-100.0); MEAN CORPUSCULAR HEMOGLOBIN 29.1 PG (27.0-34.0); MEAN CORPUSCULAR HGB CONC 33.2 % (32.0-36.0); MEAN PLATELET VOLUME 8.3 FL (7.0-11.0); PLATELET COUNT 151 TH/MM3 (150-450); RED CELL DISTRIBUTION WIDTH 16.8 % (11.6-17.2); WHITE BLOOD COUNT 26.3 TH/MM3 (4.0-11.0)
--- NOTE | 2017-05-28 07:51 | HHI.CCPN ---
Subjective Remarks/Hospital Course Patient is a 72-year-old -Domin[place] male with past medical history significant for COPD on home oxygen, chronic systolic heart failure EF 20-25%, chronic atrial fibrillation, bilateral lower extremity DVT on Coumadin, who was admitted to the hospitalist service on 05/13/2017 with history of nausea, vomiting with no diarrhea, not passing gas or stools for last 2 days. ER workup which included a CT of the abdomen pelvis showed small bowel obstruction which was high-grade. General surgery was consulted and patient was admitted to the floor. He was kept n.p.o. and NGT was placed. He was placed on a heparin drip for subtherapeutic INR. Today Halicat was called as patient became acutely hypoxemic. His O2 saturation went down to low 70s and was placed on 100% nonrebreather. Stat chest x-ray showed increasing interstitial edema and pulmonary vascular congestion indicating a CHF exacerbation. I evaluated the patient in the ICU. He is in a moderate respiratory distress currently on 100% nonrebreather. Physical exam revealed elevated JVD and bibasilar crackles. It appears that patient has acute systolic heart failure exacerbation. I will give IV Lasix 40 mg 1 now and scheduled 40 every 12. If his condition does not improve with the above measures patient may need endotracheal intubation, he is not a candidate for BiPAP due to significant small bowel obstruction and risk of aspiration. SB series is pending at this time, and Dr. Murray thinks it is ileus. Start IV Reglan, keep K>4 SUBJ 05/15/17: Remains on partial nonrebreather desaturates when placed on Ventimask 50%. He claims that he is breathing more comfortably. With IV Lasix made 1 L urine overnight. Started on Reglan yesterday ileus persist. Increase Reglan to 10 mg every 8. Small bowel series showing high grade obstruction. 05/16: Supplemental O2 down to 5 liters. Bowel is opening up, no surgery planned. Transfer. 05/20: Patient has developed what appears to be complete colon obstruction with severe dilation extending into small bowel. Now dehydrated with prerenal azotemia and electrolyte imbalance. We will bring him to the ICU, intubate, hydrate, place NG tube, correct electrolytes and generally maximize his physiological status as best as can be accomplished for a patient with COPD and baseline EF 25%. He requires laparotomy and colon resection for probable ischemic bowel. Patient agrees to surgery and wants continued aggressive care. I intubated patient after arrival to ICU and placed central line. Aggressive resuscitation started. Discussed with general surgery. Also has severe hypokalemia, potassium is 2.3 05/21: Patient having BMs. Abdomen soft, will continue to decompress from above. 05/22: BMs persist. Bowel gas resolving. Cardiopulmonary status critical. 05/23: Gas exchange and fluid balance about right; start attempts to extubate. 05/24: Stronger on SBTs. Glucose intolerance persists. Increase TFs to 20/hr, reduce TPN to 60 ml/hr. Still having stools. 05/25: Continued hemoptysis which started when patient was on heparin gtt for a- fib. Heparin has been off for 36 hours. Meets criteria to extubate but will wait for hemoptysis to clear. His COPD and LV dysfunction combine to complicate his respiratory status irregardless, but we can at least not throw hemoptysis into the mix. He may require diagnostic bronch followed by trach for senior care care. 05/26: Remains sedated, orally intubated on mechanical ventilation. On trickle tube feeds. Surgery has signed off. Plan to advance tube feeds and titrate off TPN. 05/27: Sedated, arousable, orally intubated on mechanical ventilation. Plan to advance tube feeds. Plan to place OG tube and NG tube prior to attempting extubation 05/28: Extubated yesterday, tolerating nasal cannula well. Was tolerating tube feeds at 20 cc an hour prior to extubation. Will advance by mouth intake as tolerated and stop TPN after current bag. Objective Vital Signs Date Time Temp Pulse Resp B/P (MAP) Pulse Ox O2 Delivery O2 Flow Rate FiO2 05/28/17 06:00 83 05/28/17 04:00 99.2 23 154/99 (117) 93 05/27/17 22:45 Nasal Cannula 6.00 05/27/17 12:33 40 Intake and Output 05/28/17 05/28/17 05/29/17 08:00 16:00 00:00 Intake Total 1293 ml Output Total 250 ml Balance 1043 ml Result Diagram: 05/28/17 0510 05/26/17 0500 Imaging Chest x-ray shows bilateral pulmonary vascular congestion and atelectasis Objective Remarks HEENT/ Neuro: Drowsy, easily arousable, following commands. Has some disorientation. No pallor, no icterus, tongue/ mucosa dry Neck: No JVD Chest/Pulm: good air entry bilaterally, no wheezing or crackles CVS: S1-S2 regular, no murmur GI/abdomen: soft, nontender, minimal distention, bowel sounds sluggish Extremities: warm bilaterally, trace edema A/P Assessment and Plan ASSESSMENT: Acute hypoxemic respiratory failure Colonic ileus, small bowel obstruction Severe hypokalemia Chronic systolic heart failure exacerbation COPD Cardiomyopathy EF 20-25% COPD on home oxygen Bilateral DVT Chronic atrial fibrillation Malnutrition Hemoptysis. PLAN: NEURO: -Off all sedation. -Avoid opiates due to ileus Follow neuro status. RESP: -Extubated following C Pap trials on 05/27, tolerating nasal cannula. -Solu-Medrol 60 every 6 hours, hold prednisone -> decrease -d/c empiric Levaquin for COPD exacerbation CV: -Restart Lasix. Resume Aldactone, lisinopril, Coreg, diltiazem for A. fib/CHF -Off Levophed -Chest x-ray previously showed worsening interstitial edema -off heparin due to hemoptysis GI: -Dr. Murray following for small bowel obstruction, colonic ileus -> resolved. - Was tolerating tube feeds at 20 cc an hour prior to extubation. We'll stop TPN after current bag after dropping rate to 30 cc an hour. Initiated. Liquids and advance by mouth diet as tolerated. -Surgery has signed off : -Monitor renal function closely. Faulkner catheter. -s/p aggressive resuscitation -Restarted Lasix 05/23 ID: -Continue empiric Levaquin and d/c Flagyl used when colon was dilated/?ischemic HEME: -Monitor CBC, CMP, coags -Hold IV heparin ENDO: -Electrolyte replacement per ICU protocol PROPH: -Bilateral lower extremity SCDs. IV heparin-currently on hold. IV famotidine LINES: -Utilize peripheral IVs, placed right subclavian central line Overall impression: Hemoptysis markedly reduced. Compensated systolic heart failure. Resolving massive colon distention and proximal small bowel obstruction/dilation. Large fluid and electrolyte losses. Chronic systolic heart failure and non-exacerbated COPD. Small new right upper lobe infiltrate. Risk markedly elevated due to comorbid conditions. Status post extubation and back on cardiac meds including diuretic. Being followed by pulmonary. Consult and transfer to hospitalist service for further medical management. Critical care will be signing off, please reconsult if needed. Howard Lynn MD May 28, 2017 07:51
[2017-05-28] MEDS ORDERED: LABETALOL HCL 100 MG/20 ML VIAL IV PUSH PRN (08:00)
[2017-05-28] MEDS: INSULIN DETEMIR 100 UNITS/ML VIAL SQ SCH ×2 (09:00→21:11)
[2017-05-28] MEDS: COLLAGENASE OINT 30 GM TUBE TOPICAL SCH (09:00)
[2017-05-28] MEDS: BISACODYL 10 MG SUPP RECTAL SCH (09:00)
[2017-05-28] MEDS: CHLORHEXIDINE 0.12% (ORAL KIT) 15 ML CUP MT SCH ×2 (09:50→21:10)
[2017-05-28] MEDS: SODIUM CHLORIDE 0.9% FLUSH 10 ML FLUSH IV FLUSH SCH ×2 (09:50→21:10)
[2017-05-28] MEDS: DILTIAZEM HCL 30 MG TAB PO SCH ×4 (09:51→21:10)
[2017-05-28] MEDS: DOCUSATE SODIUM 100 MG/10 ML UDC PO SCH ×2 (09:51→21:10)
[2017-05-28] MEDS: SPIRONOLACTONE 25 MG TAB PO SCH ×2 (09:51→17:20)
[2017-05-28] MEDS: LISINOPRIL 5 MG TAB PO SCH (09:51)
[2017-05-28] MEDS: FUROSEMIDE 40 MG/4 ML VIAL IV PUSH SCH (09:51)
[2017-05-28] MEDS: CARVEDILOL 6.25 MG TAB PO SCH ×2 (09:52→21:10)
[2017-05-28] MEDS: ONDANSETRON HCL 4 MG/2 ML VIAL IV PUSH PRN (10:36)
[2017-05-28] MEDS: LORazepam 2 MG/ML VIAL IV PRN (10:36)
--- NOTE | 2017-05-28 11:01 | HHI.HCPN ---
Reason for visit a. To assist with evaluation and management of symptoms including: Abdominal pain, shortness of breath, debility. b. To assist medical decision maker(s) with: better understanding of current medical conditions; weighing benefits/burdens of medical treatment options; making medical treatment decisions. . Subjective/Interval History Palliative care follow-up for further clarifications of goals of care. Medically extubated yesterday. Tolerating NC. Remains somewhat confused, though alert, talking. Critical care has signed off, probable d/c out of ICU if remains stable. WBC uptrending, 26.3. Pt seen in room RN present. Dual visit w Mukul Marmolejo [employer] palliative SW. Pt is alert. oriented to self, he seems aware he is in hospital though does not appear to have insight. he c/o being tied up and needed to "get out to spring". He does not appear to be in pain though he is not answering my question RE. He is reluctant to allow me to listen to his heart and lungs, moving away from me. Asked him about the breathing tube which was recently removed, and if he would want the tube again if needed to assist his breathing, he tells me " I don't want no more damn tubes", he wants breakfast. Nursing to assist w clear liq diet, reports he chewed up his am pills. Call to cousin/[facility] Ms Burnett following exam, updated on current assessment, conditions, and what pt is stating today. Review of DNR status, and pt saying "no more tubes". She feels she should honor his wishes and if he says no more tubes, then she would want him to be DNR/no intubation. Review that if he did experience further decline in resp or cardiac status, if no resuscitation is desired then comfort measures would be the remaining option to allow him to be comfortable and dignified if condition deteriorated. She is open to talking about them more if the time arises for now she wishes to continue other medical treatments. . Family/friend interactions Following exam call to cousin/[facility] Ms Santiago. . Advance Directives Health Care Surrogate: Copy in medical record Advance Directive Specifics Date completed: 05/15/2017. . Health Care Surrogate(s): cousin Kathie Saavedra listed as healthcare surrogate decision maker. Alternate surrogate is cammie Taylor. . Documented care wishes: Patient verbalized that in the event of being placed on life support, he would only allow 2 days and if no recovery, okay to "let him go" . Significant change in goals: DNR requested 05/28 Objective Vital Signs Date Time Temp Pulse Resp B/P (MAP) Pulse Ox O2 Delivery O2 Flow Rate FiO2 05/28/17 06:00 83 05/28/17 04:00 106 05/28/17 04:00 99.2 106 23 154/99 (117) 93 05/28/17 02:00 98 05/28/17 00:00 99.4 100 20 133/78 (96) 92 05/28/17 00:00 100 05/27/17 22:45 92 Nasal Cannula 6.00 05/27/17 22:00 104 05/27/17 20:00 99.1 102 20 149/81 (103) 91 05/27/17 20:00 102 05/27/17 19:00 92 Mechanical Ventilator 4.00 Nasal Cannula 05/27/17 16:00 115 05/27/17 16:00 97.8 115 18 120/69 (86) 96 05/27/17 13:07 92 Nasal Cannula 6 05/27/17 13:07 95 Nasal Cannula 4.00 05/27/17 12:33 99 40 05/27/17 12:15 40 05/27/17 12:00 98.1 106 17 136/86 (103) 99 05/27/17 12:00 106 Intake & Output 05/28/17 05/28/17 07:00 19:00 Intake Total 1293 ml Output Total 250 ml Balance 1043 ml Intake Oral 480 ml IV Total 813 ml Output Urine Total 100 ml Stool Total 150 ml # Voids 4 Physical Exam CONSTITUTIONAL/GENERAL: This is an adequately nourished patient, in no apparent distress, alert, confused TUBES/LINES/DRAINS: PIV UE, NC, External catheter. Rectal tube. SKIN: No jaundice, rashes. Skin warm/dry. Nonhealing sores to bilateral lower extremities. CARDIOVASCULAR: Regular rate and rhythm- difficult to auscultate 2/2 pt restless /talking. Peripheral pulses symmetric. Venous stasis to bilateral lower extremities. RESPIRATORY/CHEST: Symmetric, unlabored respirations on NC. Coarse breath sounds bilaterally- difficult to auscultate 2/2 pt restless/talking. O2 via nasal cannula. GASTROINTESTINAL: Abdomen large, round, soft. Active bowel sounds.Rectal drain w liq stool present GENITOURINARY: Without palpable bladder distension. external catheter in place. MUSCULOSKELETAL: Extremities without clubbing. Edema to bilateral upper and lower extremities. NEUROLOGICAL: awake, oriented to self, family, seems to know he is in hospital. He is irritable, cursing. Uncooperative w exam. moving all 4 extremities. PSYCHIATRIC: restless . Diagnostic Tests Laboratory Laboratory Tests Test 05/26/17 05:00 05/26/17 08:05 05/27/17 09:05 05/28/17 05:10 Blood Urea Nitrogen 53 MG/DL (7-18) Creatinine 0.82 MG/DL (0.60-1.30) Random Glucose 207 MG/DL (74-106) Calcium Level 8.4 MG/DL (8.5-10.1) Phosphorus Level 2.1 MG/DL (2.5-4.9) 3.9 MG/DL (2.5-4.9) Magnesium Level 2.6 MG/DL (1.5-2.5) Sodium Level 140 MEQ/L (136-145) Potassium Level 4.6 MEQ/L (3.5-5.1) Chloride Level 103 MEQ/L (98-107) Carbon Dioxide Level 34.4 MEQ/L (21.0-32.0) Anion Gap 3 MEQ/L (5-15) Estimat Glomerular Filtration Rate 112 ML/MIN (>89) White Blood Count 22.9 TH/MM3 (4.0-11.0) 26.3 TH/MM3 (4.0-11.0) Red Blood Count 5.06 MIL/MM3 (4.50-5.90) 5.00 MIL/MM3 (4.50-5.90) Hemoglobin 14.9 GM/DL (13.0-17.0) 14.5 GM/DL (13.0-17.0) Hematocrit 45.0 % (39.0-51.0) 43.7 % (39.0-51.0) Mean Corpuscular Volume 88.9 FL (80.0-100.0) 87.5 FL (80.0-100.0) Mean Corpuscular Hemoglobin 29.5 PG (27.0-34.0) 29.1 PG (27.0-34.0) Mean Corpuscular Hemoglobin Concent 33.1 % (32.0-36.0) 33.2 % (32.0-36.0) Red Cell Distribution Width 17.1 % (11.6-17.2) 16.8 % (11.6-17.2) Platelet Count 157 TH/MM3 (150-450) 151 TH/MM3 (150-450) Mean Platelet Volume 9.9 FL (7.0-11.0) 8.3 FL (7.0-11.0) Neutrophils (%) (Auto) 87.5 % (16.0-70.0) Lymphocytes (%) (Auto) 1.4 % (9.0-44.0) Monocytes (%) (Auto) 10.3 % (0.0-8.0) Eosinophils (%) (Auto) 0.7 % (0.0-4.0) Basophils (%) (Auto) 0.1 % (0.0-2.0) Neutrophils # (Auto) 24.2 TH/MM3 (1.8-7.7) Lymphocytes # (Auto) 0.4 TH/MM3 (1.0-4.8) Monocytes # (Auto) 2.8 TH/MM3 (0-0.9) Eosinophils # (Auto) 0.2 TH/MM3 (0-0.4) Basophils # (Auto) 0.0 TH/MM3 (0-0.2) CBC Comment AUTO DIFF Differential Comment AUTO DIFF CONFIRMED Platelet Estimate NORMAL (NORMAL) Platelet Morphology Comment CLUMPED (NORMAL) Result Diagram: 05/28/17 0510 05/26/17 0500 Imaging Last Impressions Chest X-Ray 05/26/17 0000 Signed Impressions: Service Date/Time: Friday, May 26, 2017 04:50 - CONCLUSION: Unchanged patchy parenchymal consolidations. Luis Marmolejo Jr., MD Abdomen X-Ray 05/22/17 0600 Signed Impressions: Service Date/Time: May 10:04 - CONCLUSION: The previously noted dilated small bowel have resolved. NG tube in the stomach. Jeff Foster MD Small Bowel X-Ray 05/14/17 0000 Signed Impressions: Service Date/Time: Sunday, May 14, 2017 11:20 - CONCLUSION: 1. Findings consistent with CT examination and suggestive of high grade obstruction in the distal jejunum/proximal ileum. Kwaku Vences MD Abdomen/Pelvis CT 05/13/17 1005 Signed Impressions: Service Date/Time: Saturday, May 13, 2017 11:36 - CONCLUSION: 1. Mid to distal jejunal small bowel ileus with acute transition characteristic of high grade small bowel obstruction. 2. Uncomplicated colonic diverticulosis. 3. Mild ascites. 4. Uncomplicated colonic diverticulosis. Conor John MD Procedures * 05/20/17 -endotracheally intubated * 05/27/17 -medical extubation . Assessment and Plan Disease Oriented Problem List: (1) Acute hypoxemic respiratory failure (2) Small bowel obstruction (3) COPD (chronic obstructive pulmonary disease) (4) Systolic heart failure (5) Cardiomyopathy (6) Leg ulcer, left Symptom Scale: (1) Abdominal pain 0-10 Scale: Unable to quantify (2) Dyspnea 0-10 Scale: Unable to quantify Pertinent Non-Medical Issues Psychosocial: Patient is single, never . No children. [employer] , disabled secondary to PTSD. Patient was born and raised in [place]. Highest level of education is high school. Patient has 2 siblings in the area, one cousin that lives in [place]. Spiritual: No sikh affiliation. Legal: Advance directives completed. Ethical issues impacting care: No ethical issues identified. . Important Contacts HCS/cousin Kathie Saavedra . Alternate surrogate/cousin Dee Daughertyon . . Prognosis Mr. Rocha is a 72-year-old male with a medical history significant for CHF, COPD, atrial fibrillation, medication noncompliance. Patient with significant progression of cardiopulmonary disease. He is O2 dependent, EF of 20%. Patient admitted for small bowel obstruction, somewhat improving. However, patient remains at high risk for further complications, continued decline and . Patient appears hospice appropriate should he elects comfort-directed care given significant cardiopulmonary disease. . Code Status: Full Code Plan * CODE STATUS: DNR * HEALTHCARE DECISION-MAKING: Patient unable to participating medical decision making at this time secondary to clinical condition, remains encephalopathic status post medical extubation. Advance directives completed. Patient has designated is cousin Kathie Saavedra as healthcare surrogate decision maker , alternate is cousin Dee Taylor. * GOALS OF CARE: Pt alert but still confused, limited ability to participate. Call to cousin/HCS to update. Review of DNR status, and pt saying "no more tubes ". She feels she should honor his wishes and if he says no more tubes, then she would want him to be DNR/no intubation. Review that if he did experience further decline in resp or cardiac status, if no resuscitation is desired then comfort measures would be the remaining option to allow him to be comfortable and dignified if condition deteriorated, introduced hospice. She is open to talking about that more if the time arises for now she wishes to continue other medical treatments. * SYMPTOMS: = Abdominal pain, secondary to SBO. Resolving. Having BMs = Shortness of breath: Secondary to COPD, CHF exacerbation. Medically extubated tolerating nasal cannula = Debility: chronic. Rehabilitation was recommended during prior admission, patient declined. PT following during this admission, home with home health recommended. * Palliative care contact information has been provided to patient and family. * Palliative care will continue to follow up for further clarification of goals of care as patient's clinical course continues to evolve. . Attestation To help prompt me to consider important information that might be impacting today's encounter and assessment, information from prior notes written by myself or my colleagues may have been "brought forward" into today's note. My signature on this note, however, is an attestation that I personally performed the exam, history, and/or decision-making noted today, and, unless otherwise indicated, the interactions with patient, family, and staff as well as the review of records all occurred today. I also attest that the listed assessment and stated plan reflect my best clinical judgment today based on the combination of historical information, prior notes, and today's exam/ interactions. When time spent is documented, it refers only to time spent today by the signer, or if indicated, combined time spent today by collaborating physician/nurse practitioner. Yue Robert May 28, 2017 11:01
[2017-05-28] MEDS: RESP: ALBUTEROL 2.5 MG/IPRATROPIUM 0.5 MG NEB (PRN) NEB (11:08)
--- NOTE | 2017-05-28 16:40 | HHI.PR ---
Subjective Remarks EXTUBATED , NO DISTRESS CONFUSED ON O2 N/C Objective Vital Signs Date Time Temp Pulse Resp B/P (MAP) Pulse Ox O2 Delivery O2 Flow Rate FiO2 05/28/17 14:00 84 05/28/17 12:00 79 05/28/17 12:00 98.3 79 15 12/72 (52) 95 05/28/17 11:10 90 Nasal Cannula 6.00 05/28/17 10:00 68 05/28/17 08:00 98.7 86 25 120/61 (80) 97 05/28/17 08:00 86 05/28/17 07:00 100 Mechanical Ventilator 4.00 Nasal Cannula 05/28/17 06:00 83 05/28/17 04:00 106 05/28/17 04:00 99.2 106 23 154/99 (117) 93 05/28/17 02:00 98 05/28/17 00:00 99.4 100 20 133/78 (96) 92 05/28/17 00:00 100 05/27/17 22:45 92 Nasal Cannula 6.00 05/27/17 22:00 104 05/27/17 20:00 99.1 102 20 149/81 (103) 91 05/27/17 20:00 102 05/27/17 19:00 92 Mechanical Ventilator 4.00 Nasal Cannula I/O 05/27/17 05/27/17 05/27/17 05/28/17 05/28/17 05/28/17 07:00 15:00 23:00 07:00 15:00 23:00 Intake Total 1234 ml 100 ml 2000 ml 1293 ml 287 ml Output Total 1825 ml 0 ml 1750 ml 250 ml Balance -591 ml 100 ml 250 ml 1043 ml 287 ml Intake Oral 480 ml IV Total 980 ml 100 ml 2000 ml 813 ml 287 ml Tube Feeding 194 ml Tube Irrigant 60 ml Output Urine Total 1800 ml 1750 ml 100 ml Stool Total 25 ml 0 ml 150 ml Tube Feeding Residual Discard 0 ml # Voids 4 Result Diagram: 05/28/17 0510 05/26/17 0500 Objective Remarks GENERAL: sedated on ventilator SKIN: Warm and dry. HEAD: Atraumatic. Normocephalic. EYES: Pupils equal and round. No scleral icterus. No injection or drainage. ENT: No nasal bleeding or discharge. Mucous membranes pink and moist. NECK: Trachea midline. No JVD. CARDIOVASCULAR: Regular rate and rhythm. RESPIRATORY: No accessory muscle use. Clear to auscultation. Breath sounds equal bilaterally. GASTROINTESTINAL: Abdomen soft, non-tender, nondistended. Hepatic and splenic margins not palpable. MUSCULOSKELETAL: Extremities without clubbing, cyanosis, or edema. No obvious deformities. NEUROLOGICAL: Awake and alert. No obvious cranial nerve deficits. Motor grossly within normal limits. Five out of 5 muscle strength in the arms and legs. Normal speech. PSYCHIATRIC: Appropriate mood and affect; insight and judgment normal. Assessment and Plan Assessment and Plan assessment respiratory failure, OFF THE VENT bowel obstruction CXRAY PNA SAME COPD CHF HTN HLD PLAN O2 NEEDED PULM TOILET prognosis guarded/poor Tania Marin MD May 28, 2017 16:40
[2017-05-29] VITALS (12 sets, daily range): BP systolic 109–133; BP diastolic 59–76; PULSE 70–101; RESP 16–28; TEMP 97–98.7; O2SAT 91–98
[2017-05-29] MEDS: METOCLOPRAMIDE HCL 10 MG/2 ML VIAL IV PUSH SCH ×3 (05:46→22:35)
[2017-05-29] MEDS: methylPREDNISolone SOD SUCC 40 MG/1 ML VIAL IV PUSH SCH ×2 (05:46→12:22)
[2017-05-29] MEDS: INSULIN ASPART SUPPLEMENTAL SCALE SQ SCH ×4 (06:00→23:54)
[2017-05-29] MEDS: CHLORHEXIDINE 0.12% (ORAL KIT) 15 ML CUP MT SCH ×2 (07:48→20:00)
[2017-05-29] MEDS: BISACODYL 10 MG SUPP RECTAL SCH (08:11)
[2017-05-29] MEDS: INSULIN DETEMIR 100 UNITS/ML VIAL SQ SCH (08:11)
[2017-05-29] MEDS: COLLAGENASE OINT 30 GM TUBE TOPICAL SCH (08:12)
[2017-05-29] MEDS: FUROSEMIDE 40 MG/4 ML VIAL IV PUSH SCH (08:29)
[2017-05-29] MEDS: SODIUM CHLORIDE 0.9% FLUSH 10 ML FLUSH IV FLUSH SCH ×2 (08:29→20:08)
[2017-05-29] MEDS: DOCUSATE SODIUM 100 MG/10 ML UDC PO SCH ×2 (08:30→20:03)
[2017-05-29] MEDS: DILTIAZEM HCL 30 MG TAB PO SCH ×4 (08:30→20:03)
[2017-05-29] MEDS: LISINOPRIL 5 MG TAB PO SCH (09:16)
[2017-05-29] MEDS: CARVEDILOL 6.25 MG TAB PO SCH ×2 (09:16→20:03)
[2017-05-29] MEDS: SPIRONOLACTONE 25 MG TAB PO SCH (09:16)
[2017-05-29] MEDS: LORazepam 2 MG/ML VIAL IV PRN ×2 (09:21→20:08)
--- NOTE | 2017-05-29 14:37 | HHI.PR ---
Subjective Remarks The patient was lethargic as he received Ativan for trying to climb out of bed. He was being fed some Jell-O. He had no acute complaints. Discussed with nursing at the bedside who reports that he had a blood clot coughed out earlier this morning. Objective Vitals Vital Signs Date Time Temp Pulse Resp B/P (MAP) Pulse Ox O2 Delivery O2 Flow Rate FiO2 05/29/17 14:00 70 05/29/17 12:00 94 Nasal Cannula 3.00 Humidified 05/29/17 12:00 97.0 80 16 118/69 (85) 92 05/29/17 12:00 80 05/29/17 11:00 95 Nasal Cannula 4.00 Humidified 05/29/17 10:00 85 05/29/17 08:00 71 05/29/17 08:00 97.0 94 20 120/73 (89) 98 05/29/17 08:00 93 Nasal Cannula 6.00 05/29/17 07:00 95 Nasal Cannula 6.00 Humidified 05/29/17 06:00 85 05/29/17 04:00 98.7 94 28 133/76 (95) 95 05/29/17 04:00 94 05/29/17 02:00 84 05/29/17 00:00 83 05/29/17 00:00 98.5 83 21 120/70 (87) 94 05/28/17 22:00 91 05/28/17 21:30 93 Nasal Cannula 6.00 Humidified 05/28/17 20:24 90 Nasal Cannula 6.00 05/28/17 20:00 82 05/28/17 20:00 98.4 82 21 106/68 (81) 91 05/28/17 19:00 92 Nasal Cannula 6.00 05/28/17 18:00 88 05/28/17 16:00 84 05/28/17 16:00 98.7 84 20 139/77 (97) 90 I/O 05/28/17 05/28/17 05/28/17 05/29/17 05/29/17 05/29/17 07:00 15:00 23:00 07:00 15:00 23:00 Intake Total 1293 ml 287 ml 600 ml 720 ml Output Total 250 ml 1800 ml 675 ml Balance 1043 ml 287 ml -1200 ml 45 ml Intake Oral 480 ml 600 ml 720 ml IV Total 813 ml 287 ml Output Urine Total 100 ml 1650 ml 575 ml Stool Total 150 ml 150 ml 100 ml # Voids 4 2 Result Diagram: 05/28/17 0510 05/26/17 0500 Imaging Last Impressions Chest X-Ray 05/26/17 0000 Signed Impressions: Service Date/Time: Friday, May 26, 2017 04:50 - CONCLUSION: Unchanged patchy parenchymal consolidations. Luis Marmolejo Jr., MD Abdomen X-Ray 05/22/17 0600 Signed Impressions: Service Date/Time: May 10:04 - CONCLUSION: The previously noted dilated small bowel have resolved. NG tube in the stomach. Jeff Foster MD Small Bowel X-Ray 05/14/17 0000 Signed Impressions: Service Date/Time: Sunday, May 14, 2017 11:20 - CONCLUSION: 1. Findings consistent with CT examination and suggestive of high grade obstruction in the distal jejunum/proximal ileum. Kwaku Vences MD Abdomen/Pelvis CT 05/13/17 1005 Signed Impressions: Service Date/Time: Saturday, May 13, 2017 11:36 - CONCLUSION: 1. Mid to distal jejunal small bowel ileus with acute transition characteristic of high grade small bowel obstruction. 2. Uncomplicated colonic diverticulosis. 3. Mild ascites. 4. Uncomplicated colonic diverticulosis. Conor John MD Objective Remarks General: Resting in bed. Neuro: Drowsy, easily arousable, following commands. Has some disorientation. HEENT: NC, AT. Neck: No JVD. Pulm: good air entry bilaterally, no wheezing or crackles. CVS: S1-S2 regular, no murmur. GI: soft, nontender, minimal distention. Extremities: Warm bilaterally, trace edema. Medications and IVs Current Medications Medications (Trade) Dose Ordered Sig/Deacon Route Start Time Stop Time Status Last Admin (NS Flush) 2 ml UNSCH PRN IV FLUSH 05/13/17 13:15 05/28/17 05:08 (NS Flush) 2 ml BID IV FLUSH 05/13/17 21:00 05/29/17 08:29 (Narcan Inj) 0.4 mg UNSCH PRN IV PUSH 05/13/17 13:15 (Zofran Inj) 4 mg Q6HR PRN IV PUSH 05/13/17 13:15 05/28/17 10:36 (Coreg) 6.25 mg Q12HR PO 05/14/17 21:00 Future hold 05/29/17 09:16 (Santyl Oint) 1 applic DAILY TOPICAL 05/15/17 09:00 05/28/17 09:00 (Cardizem) 30 mg QID PO 05/14/17 18:00 Future hold 05/29/17 12:23 (Prinivil) 2.5 mg DAILY PO 05/15/17 09:00 Future hold 05/29/17 09:16 (KCl) 20 meq DAILY PO 05/15/17 09:00 Future Hold 05/18/17 08:31 (Deltasone) 20 mg DAILY PO 05/14/17 16:00 Future Hold 05/14/17 16:06 (Duoneb Neb) 1 ampule Q2HR NEB PRN NEB 05/14/17 15:45 05/28/17 11:08 (Pill Splitter) 1 ea UNSCH PRN OTHER 05/14/17 16:00 (K-Lyte Cl Eff) 25 meq Q12HR PO 05/14/17 21:00 Future Hold 05/18/17 20:41 (Aldactone) 25 mg BID@18 PO 05/14/17 19:15 Future hold 05/29/17 09:16 (Reglan Inj) 10 mg Q8HR IV PUSH 05/15/17 14:00 05/29/17 12:22 (Dulcolax Supp) 10 mg DAILY RECTAL 05/16/17 09:00 05/27/17 09:17 (Milk Of Magnesia Liq) 30 ml QID PRN PO 05/17/17 16:30 05/19/17 05:22 (Peridex 0.12% Liq) 15 ml BID@08,20 MT 05/20/17 20:00 05/29/17 07:48 Propofol 100 ml @ 2.109 mls/ hr TITRATE PRN IV 05/20/17 11:30 05/27/17 01:55 (Ativan Inj) 2 mg Q2H PRN IV 05/20/17 14:15 05/29/17 09:21 Norepinephrine Bitartrate 250 ml @ 7.5 mls/hr TITRATE PRN IV 05/20/17 14:15 05/20/17 11:00 (D50w (Vial) Inj) 50 ml UNSCH PRN IV PUSH 05/21/17 12:45 (Glucagon Inj) 1 mg UNSCH PRN OTHER 05/21/17 12:45 (NovoLOG SUPPLEMENTAL SCALE) 1 Q6HR SQ 05/21/17 12:45 05/28/17 01:11 Potassium Chloride 100 ml @ 50 mls/hr Q2H PRN IV 05/22/17 09:15 Potassium Chloride 100 ml @ 50 mls/hr Q2H PRN IV 05/22/17 09:15 (K-Lyte Cl Eff) 50 meq UNSCH PRN PO 05/22/17 09:15 Potassium Chloride 100 ml @ 25 mls/hr UNSCH PRN IV 05/22/17 09:15 Potassium Chloride 100 ml @ 50 mls/hr Q2H PRN IV 05/22/17 09:15 Magnesium Sulfate 4 gm/Sodium Chloride 100 ml @ 50 mls/hr UNSCH PRN IV 05/22/17 09:15 (Mag-Ox) 800 mg UNSCH PRN PO 05/22/17 09:15 Magnesium Sulfate 2 gm/Sodium Chloride 100 ml @ 50 mls/hr UNSCH PRN IV 05/22/17 09:15 (K-Phos) 2,000 mg Q4H PRN PO 05/22/17 09:15 Sodium Phosphate 30 mmol/Sodium Chloride 250 ml @ 42 mls/hr UNSCH PRN IV 05/22/17 09:15 05/26/17 20:54 (K-Phos) 2,000 mg UNSCH PRN PO/TUBE 05/22/17 09:15 (Lasix Inj) 40 mg DAILY IV PUSH 05/22/17 13:30 05/29/17 08:29 (Colace Liq) 100 mg BID PO 05/24/17 09:00 05/29/17 08:30 (Trandate Inj) 10 mg Q4H PRN IV PUSH 05/28/17 08:00 (Deltasone) 20 mg BID PO 05/29/17 21:00 UNV A/P Assessment and Plan Acute hypoxemic respiratory failure/ COPD Extubated following C Pap trials on 05/27, tolerating nasal cannula. - Solu-Medrol changed to prednisone. - d/c empiric Levaquin for COPD exacerbation. - PT/ OT/ ST. Chronic systolic heart failure exacerbation EF reduced. Off Levophed. Chest x-ray previously showed worsening interstitial edema. Off heparin due to hemoptysis. - Restart Lasix. Resume lisinopril, Coreg, diltiazem for A. fib/CHF. - hold Aldactone for relative hypotension at times. SBO Dr. Murray following for small bowel obstruction, colonic ileus -> resolved. Surgery has signed off. - ADAT. - bowel regimen. Hemoptysis/ Bilateral DVT Pulmonary consult appreciated. Still coughing up clots at times. - heparin gtt on hold. - follow CBC. Stable. PPx: Mitch Santos DO May 29, 2017 14:37
--- NOTE | 2017-05-29 15:11 | HHI.PR ---
Subjective Remarks EXTUBATED , NO DISTRESS CONFUSED ON O2 N/C Objective Vital Signs Date Time Temp Pulse Resp B/P (MAP) Pulse Ox O2 Delivery O2 Flow Rate FiO2 05/29/17 14:00 70 05/29/17 12:00 94 Nasal Cannula 3.00 Humidified 05/29/17 12:00 97.0 80 16 118/69 (85) 92 05/29/17 12:00 80 05/29/17 11:00 95 Nasal Cannula 4.00 Humidified 05/29/17 10:00 85 05/29/17 08:00 71 05/29/17 08:00 97.0 94 20 120/73 (89) 98 05/29/17 08:00 93 Nasal Cannula 6.00 05/29/17 07:00 95 Nasal Cannula 6.00 Humidified 05/29/17 06:00 85 05/29/17 04:00 98.7 94 28 133/76 (95) 95 05/29/17 04:00 94 05/29/17 02:00 84 05/29/17 00:00 83 05/29/17 00:00 98.5 83 21 120/70 (87) 94 05/28/17 22:00 91 05/28/17 21:30 93 Nasal Cannula 6.00 Humidified 05/28/17 20:24 90 Nasal Cannula 6.00 05/28/17 20:00 82 05/28/17 20:00 98.4 82 21 106/68 (81) 91 05/28/17 19:00 92 Nasal Cannula 6.00 05/28/17 18:00 88 05/28/17 16:00 84 05/28/17 16:00 98.7 84 20 139/77 (97) 90 I/O 05/28/17 05/28/17 05/28/17 05/29/17 05/29/17 05/29/17 07:00 15:00 23:00 07:00 15:00 23:00 Intake Total 1293 ml 287 ml 600 ml 720 ml Output Total 250 ml 1800 ml 675 ml Balance 1043 ml 287 ml -1200 ml 45 ml Intake Oral 480 ml 600 ml 720 ml IV Total 813 ml 287 ml Output Urine Total 100 ml 1650 ml 575 ml Stool Total 150 ml 150 ml 100 ml # Voids 4 2 Result Diagram: 05/28/17 0510 05/26/17 0500 Objective Remarks GENERAL: sedated on ventilator SKIN: Warm and dry. HEAD: Atraumatic. Normocephalic. EYES: Pupils equal and round. No scleral icterus. No injection or drainage. ENT: No nasal bleeding or discharge. Mucous membranes pink and moist. NECK: Trachea midline. No JVD. CARDIOVASCULAR: Regular rate and rhythm. RESPIRATORY: No accessory muscle use. Clear to auscultation. Breath sounds equal bilaterally. GASTROINTESTINAL: Abdomen soft, non-tender, nondistended. Hepatic and splenic margins not palpable. MUSCULOSKELETAL: Extremities without clubbing, cyanosis, or edema. No obvious deformities. NEUROLOGICAL: Awake and alert. No obvious cranial nerve deficits. Motor grossly within normal limits. Five out of 5 muscle strength in the arms and legs. Normal speech. PSYCHIATRIC: Appropriate mood and affect; insight and judgment normal. Assessment and Plan Assessment and Plan assessment respiratory failure, OFF THE VENT bowel obstruction CXRAY PNA SAME COPD CHF HTN HLD PLAN O2 NEEDED PULM TOILET prognosis guarded/poor Tania Marin MD May 29, 2017 15:10
[2017-05-29] MEDS: predniSONE 20 MG TAB PO SCH (20:03)
[2017-05-30] VITALS (10 sets, daily range): BP systolic 93–133; BP diastolic 52–82; PULSE 60–130; RESP 12–20; TEMP 97.6–99; O2SAT 93–100
[2017-05-30] MEDS: INSULIN ASPART SUPPLEMENTAL SCALE SQ SCH ×4 (05:08→21:00)
[2017-05-30 05:27] LABS: HEMATOCRIT 42.7 % (39.0-51.0); HEMOGLOBIN 14.3 GM/DL (13.0-17.0); MEAN CELL VOLUME 87.5 FL (80.0-100.0); MEAN CORPUSCULAR HEMOGLOBIN 29.2 PG (27.0-34.0); MEAN CORPUSCULAR HGB CONC 33.4 % (32.0-36.0); PLATELET COUNT 122 TH/MM3 (150-450); RED BLOOD COUNT 4.88 MIL/MM3 (4.50-5.90); RED CELL DISTRIBUTION WIDTH 17.2 % (11.6-17.2); WHITE BLOOD COUNT 20.6 TH/MM3 (4.0-11.0)
[2017-05-30 05:49] LABS: BICARBONATE 34.6 MEQ/L (21.0-32.0); CALCIUM 8.5 MG/DL (8.5-10.1); CREATININE 0.72 MG/DL (0.60-1.30); MAGNESIUM 2.4 MG/DL (1.5-2.5)
[2017-05-30] MEDS: METOCLOPRAMIDE HCL 10 MG/2 ML VIAL IV PUSH SCH ×2 (06:43→14:42)
[2017-05-30] MEDS: CHLORHEXIDINE 0.12% (ORAL KIT) 15 ML CUP MT SCH ×2 (08:00→20:00)
[2017-05-30] MEDS: BISACODYL 10 MG SUPP RECTAL SCH (09:00)
[2017-05-30] MEDS: DOCUSATE SODIUM 100 MG/10 ML UDC PO SCH ×2 (09:37→22:03)
[2017-05-30] MEDS: predniSONE 20 MG TAB PO SCH ×2 (09:37→22:03)
[2017-05-30] MEDS: DILTIAZEM HCL 30 MG TAB PO SCH ×4 (09:38→22:03)
[2017-05-30] MEDS: FUROSEMIDE 40 MG/4 ML VIAL IV PUSH SCH (09:38)
[2017-05-30] MEDS: CARVEDILOL 6.25 MG TAB PO SCH ×2 (09:39→22:03)
[2017-05-30] MEDS: SODIUM CHLORIDE 0.9% FLUSH 10 ML FLUSH IV FLUSH SCH ×2 (09:39→22:03)
[2017-05-30] MEDS: LISINOPRIL 5 MG TAB PO SCH (09:39)
[2017-05-30] MEDS: COLLAGENASE OINT 30 GM TUBE TOPICAL SCH (09:40)
--- NOTE | 2017-05-30 15:29 | HHI.PR ---
Subjective Remarks , NO DISTRESS CONFUSED ON O2 N/C Objective Vital Signs Date Time Temp Pulse Resp B/P (MAP) Pulse Ox O2 Delivery O2 Flow Rate FiO2 05/30/17 12:00 72 05/30/17 12:00 98.3 78 16 93/52 (66) 95 05/30/17 08:00 97.7 79 12 120/76 (91) 94 05/30/17 07:58 75 05/30/17 07:58 94 Nasal Cannula 4.00 Humidified 05/30/17 04:01 91 05/30/17 04:00 98.0 87 19 133/82 (99) 95 05/30/17 00:00 60 05/30/17 00:00 99.0 69 18 98/63 (75) 93 05/29/17 20:00 87 05/29/17 20:00 92 Nasal Cannula 4.00 Humidified 05/29/17 20:00 97.9 101 17 122/72 (89) 91 05/29/17 18:47 88 05/29/17 17:00 88 05/29/17 17:00 93 Nasal Cannula 4.00 Humidified 05/29/17 16:00 96 05/29/17 16:00 97.3 96 21 109/59 (76) 93 I/O 05/29/17 05/29/17 05/29/17 05/30/17 05/30/17 05/30/17 06:59 14:59 22:59 06:59 14:59 22:59 Intake Total 720 ml 240 ml 480 ml Output Total 675 ml 500 ml 700 ml Balance 45 ml -260 ml -220 ml Intake Oral 720 ml 240 ml 480 ml Output Urine Total 575 ml 450 ml 700 ml Stool Total 100 ml 50 ml # Voids 2 Result Diagram: 05/30/17 0510 05/30/17 0510 Objective Remarks GENERAL: sedated on ventilator SKIN: Warm and dry. HEAD: Atraumatic. Normocephalic. EYES: Pupils equal and round. No scleral icterus. No injection or drainage. ENT: No nasal bleeding or discharge. Mucous membranes pink and moist. NECK: Trachea midline. No JVD. CARDIOVASCULAR: Regular rate and rhythm. RESPIRATORY: No accessory muscle use. Clear to auscultation. Breath sounds equal bilaterally. GASTROINTESTINAL: Abdomen soft, non-tender, nondistended. Hepatic and splenic margins not palpable. MUSCULOSKELETAL: Extremities without clubbing, cyanosis, or edema. No obvious deformities. NEUROLOGICAL: Awake and alert. No obvious cranial nerve deficits. Motor grossly within normal limits. Five out of 5 muscle strength in the arms and legs. Normal speech. PSYCHIATRIC: Appropriate mood and affect; insight and judgment normal. Assessment and Plan Assessment and Plan assessment respiratory failure, bowel obstruction COPD CHF HTN HLD PLAN O2 NEEDED PULM TOILET increase activity Tania Marin MD May 30, 2017 15:29
--- NOTE | 2017-05-30 15:58 | HHI.PR ---
Subjective Remarks The patient was resting in bed. He appeared tired. He had no acute complaints. Discussed with nursing who was concerned about the patient being on a high insulin sliding scale. Objective Vitals Vital Signs Date Time Temp Pulse Resp B/P (MAP) Pulse Ox O2 Delivery O2 Flow Rate FiO2 05/30/17 15:40 97.7 85 16 116/74 (88) 100 05/30/17 12:00 72 05/30/17 12:00 98.3 78 16 93/52 (66) 95 05/30/17 08:00 97.7 79 12 120/76 (91) 94 05/30/17 07:58 75 05/30/17 07:58 94 Nasal Cannula 4.00 Humidified 05/30/17 04:01 91 05/30/17 04:00 98.0 87 19 133/82 (99) 95 05/30/17 00:00 60 05/30/17 00:00 99.0 69 18 98/63 (75) 93 05/29/17 20:00 87 05/29/17 20:00 92 Nasal Cannula 4.00 Humidified 05/29/17 20:00 97.9 101 17 122/72 (89) 91 05/29/17 18:47 88 05/29/17 17:00 88 05/29/17 17:00 93 Nasal Cannula 4.00 Humidified 05/29/17 16:00 96 05/29/17 16:00 97.3 96 21 109/59 (76) 93 I/O 05/29/17 05/29/17 05/29/17 05/30/17 05/30/17 05/30/17 07:00 15:00 23:00 07:00 15:00 23:00 Intake Total 720 ml 240 ml 480 ml Output Total 675 ml 500 ml 700 ml Balance 45 ml -260 ml -220 ml Intake Oral 720 ml 240 ml 480 ml Output Urine Total 575 ml 450 ml 700 ml Stool Total 100 ml 50 ml # Voids 2 Result Diagram: 05/30/17 0510 05/30/17 0510 Imaging Last Impressions Chest X-Ray 05/26/17 0000 Signed Impressions: Service Date/Time: Friday, May 26, 2017 04:50 - CONCLUSION: Unchanged patchy parenchymal consolidations. Luis Marmolejo Jr., MD Abdomen X-Ray 05/22/17 0600 Signed Impressions: Service Date/Time: May 10:04 - CONCLUSION: The previously noted dilated small bowel have resolved. NG tube in the stomach. Jeff Foster MD Small Bowel X-Ray 05/14/17 0000 Signed Impressions: Service Date/Time: Sunday, May 14, 2017 11:20 - CONCLUSION: 1. Findings consistent with CT examination and suggestive of high grade obstruction in the distal jejunum/proximal ileum. Kwaku Vences MD Abdomen/Pelvis CT 05/13/17 1005 Signed Impressions: Service Date/Time: Saturday, May 13, 2017 11:36 - CONCLUSION: 1. Mid to distal jejunal small bowel ileus with acute transition characteristic of high grade small bowel obstruction. 2. Uncomplicated colonic diverticulosis. 3. Mild ascites. 4. Uncomplicated colonic diverticulosis. Conor John MD Objective Remarks General: Resting in bed. Neuro: Drowsy, easily arousable, following commands. Has some disorientation. HEENT: NC, AT. Neck: No JVD. Pulm: good air entry bilaterally, no wheezing or crackles. CVS: S1-S2 regular, no murmur. GI: soft, nontender, minimal distention. Extremities: Warm bilaterally, trace edema. Medications and IVs Current Medications Medications (Trade) Dose Ordered Sig/Deacon Route Start Time Stop Time Status Last Admin (NS Flush) 2 ml UNSCH PRN IV FLUSH 05/13/17 13:15 05/28/17 05:08 (NS Flush) 2 ml BID IV FLUSH 05/13/17 21:00 05/30/17 09:39 (Narcan Inj) 0.4 mg UNSCH PRN IV PUSH 05/13/17 13:15 (Zofran Inj) 4 mg Q6HR PRN IV PUSH 05/13/17 13:15 05/28/17 10:36 (Coreg) 6.25 mg Q12HR PO 05/14/17 21:00 Future hold 05/30/17 09:39 (Santyl Oint) 1 applic DAILY TOPICAL 05/15/17 09:00 05/30/17 09:40 (Cardizem) 30 mg QID PO 05/14/17 18:00 Future hold 05/30/17 14:30 (Prinivil) 2.5 mg DAILY PO 05/15/17 09:00 Future hold 05/30/17 09:39 (Duoneb Neb) 1 ampule Q2HR NEB PRN NEB 05/14/17 15:45 05/28/17 11:08 (Pill Splitter) 1 ea UNSCH PRN OTHER 05/14/17 16:00 05/29/17 09:10 (Reglan Inj) 10 mg Q8HR IV PUSH 05/15/17 14:00 05/30/17 14:42 (Dulcolax Supp) 10 mg DAILY RECTAL 05/16/17 09:00 05/27/17 09:17 (Milk Of Magnesia Liq) 30 ml QID PRN PO 05/17/17 16:30 05/19/17 05:22 (Peridex 0.12% Liq) 15 ml BID@08,20 MT 05/20/17 20:00 05/29/17 07:48 (Ativan Inj) 2 mg Q2H PRN IV 05/20/17 14:15 05/29/17 20:08 (D50w (Vial) Inj) 50 ml UNSCH PRN IV PUSH 05/21/17 12:45 (Glucagon Inj) 1 mg UNSCH PRN OTHER 05/21/17 12:45 (NovoLOG SUPPLEMENTAL SCALE) 1 Q6HR SQ 05/21/17 12:45 05/30/17 14:30 Potassium Chloride 100 ml @ 50 mls/hr Q2H PRN IV 05/22/17 09:15 Potassium Chloride 100 ml @ 50 mls/hr Q2H PRN IV 05/22/17 09:15 (K-Lyte Cl Eff) 50 meq UNSCH PRN PO 05/22/17 09:15 Potassium Chloride 100 ml @ 25 mls/hr UNSCH PRN IV 05/22/17 09:15 Potassium Chloride 100 ml @ 50 mls/hr Q2H PRN IV 05/22/17 09:15 Magnesium Sulfate 4 gm/Sodium Chloride 100 ml @ 50 mls/hr UNSCH PRN IV 05/22/17 09:15 (Mag-Ox) 800 mg UNSCH PRN PO 05/22/17 09:15 Magnesium Sulfate 2 gm/Sodium Chloride 100 ml @ 50 mls/hr UNSCH PRN IV 05/22/17 09:15 (K-Phos) 2,000 mg Q4H PRN PO 05/22/17 09:15 Sodium Phosphate 30 mmol/Sodium Chloride 250 ml @ 42 mls/hr UNSCH PRN IV 05/22/17 09:15 05/26/17 20:54 (K-Phos) 2,000 mg UNSCH PRN PO/TUBE 05/22/17 09:15 (Lasix Inj) 40 mg DAILY IV PUSH 05/22/17 13:30 05/30/17 09:38 (Colace Liq) 100 mg BID PO 05/24/17 09:00 05/30/17 09:37 (Trandate Inj) 10 mg Q4H PRN IV PUSH 05/28/17 08:00 (Deltasone) 20 mg BID PO 05/29/17 21:00 05/30/17 09:37 A/P Assessment and Plan Acute hypoxemic respiratory failure/ COPD Extubated following C Pap trials on 05/27, tolerating nasal cannula. - Solu-Medrol changed to prednisone. - d/c empiric Levaquin for COPD exacerbation. - PT/ OT/ ST. Chronic systolic heart failure exacerbation EF reduced. Off Levophed. Chest x-ray previously showed worsening interstitial edema. Off heparin due to hemoptysis. - Continue IV Lasix. Resume lisinopril, Coreg, diltiazem for A. fib/CHF. - hold Aldactone for relative hypotension at times. SBO Dr. Murray following for small bowel obstruction, colonic ileus -> resolved. Surgery has signed off. - ADAT. Speech therapy following. - bowel regimen. Hemoptysis/ Bilateral DVT Pulmonary consult appreciated. Still coughing up clots at times. - heparin gtt on hold. Resume SQ heparin. - follow CBC. Stable. DM Glucose elevated at times. - change to low dose insulin sliding scale as needed. PPx: Heparin SQ Mitch Catherine DO May 30, 2017 15:58
[2017-05-30] MEDS ORDERED: METOCLOPRAMIDE HCL 10 MG/2 ML VIAL IV PUSH PRN (16:00)
--- NOTE | 2017-05-30 16:27 | HHI.HCPN ---
Reason for visit a. To assist with evaluation and management of symptoms including: Abdominal pain, shortness of breath, debility. b. To assist medical decision maker(s) with: better understanding of current medical conditions; weighing benefits/burdens of medical treatment options; making medical treatment decisions. . Subjective/Interval History Patient seen today to follow-up on comfort post extubation. Medically extubated earlier this week. Tolerating NC 3l . Remains somewhat confused, though alert, talking. Critical care has signed off, transfer out of ICU to medical floor pending. WBC remains elevated though downtrending 20.6. Afebrile. ST following, patient high risk for aspiration, honey thick diet recommended. Pt seen in room no visitors present. He is awake, restful. He is oriented to self, names [facility]. He tells me he is in the hospital for "sores on his legs ". He is oriented to his family able to name his cousin in [place] tells me she is not here. He tells me he lived at home wants to go back home. He has very limited insight into conditions or why he remains in the hospital. He does follow simple commands. Moving all 4 extremities. Denies pain. Denies dyspnea. Denies GI complaints. Tells me his breathing feels fine. Attempt to explore if he remembers being on mechanical vent he does not however he does tell me he "doesn't want anymore damn tubes". he appears comfortable. He complains of being thirsty, notified [employer] who will provide him with thickened water. . Advance Directives Health Care Surrogate: Copy in medical record Advance Directive Specifics Date completed: 05/15/2017. . Health Care Surrogate(s): cousin Kathie Saavedra listed as healthcare surrogate decision maker. Alternate surrogate is cousin Dee Taylor. . Documented care wishes: Patient verbalized that in the event of being placed on life support, he would only allow 2 days and if no recovery, okay to "let him go" . Objective Vital Signs Date Time Temp Pulse Resp B/P (MAP) Pulse Ox O2 Delivery O2 Flow Rate FiO2 05/30/17 15:40 97.7 85 16 116/74 (88) 100 05/30/17 12:00 72 05/30/17 12:00 98.3 78 16 93/52 (66) 95 05/30/17 08:00 97.7 79 12 120/76 (91) 94 05/30/17 07:58 75 05/30/17 07:58 94 Nasal Cannula 4.00 Humidified 05/30/17 04:01 91 05/30/17 04:00 98.0 87 19 133/82 (99) 95 05/30/17 00:00 60 05/30/17 00:00 99.0 69 18 98/63 (75) 93 05/29/17 20:00 87 05/29/17 20:00 92 Nasal Cannula 4.00 Humidified 05/29/17 20:00 97.9 101 17 122/72 (89) 91 05/29/17 18:47 88 05/29/17 17:00 88 05/29/17 17:00 93 Nasal Cannula 4.00 Humidified Intake & Output 05/30/17 05/30/17 07:00 19:00 Intake Total 480 ml Output Total 700 ml Balance -220 ml Intake Oral 480 ml Output Urine Total 700 ml Physical Exam CONSTITUTIONAL/GENERAL: This is an adequately nourished patient, in no apparent distress, alert, confused TUBES/LINES/DRAINS: PIV UE, NC, External catheter. Rectal tube. SKIN: No jaundice, rashes. Skin warm/dry. Nonhealing sores to bilateral lower extremities. CARDIOVASCULAR: Regular rate and rhythm- difficult to auscultate 2/2 pt talking. Peripheral pulses symmetric. Venous stasis to bilateral lower extremities. RESPIRATORY/CHEST: Symmetric, unlabored respirations on NC. Coarse breath sounds bilaterally- O2 via nasal cannula 3l GASTROINTESTINAL: Abdomen large, round, soft. Active bowel sounds.Rectal drain w liq stool present GENITOURINARY: Without palpable bladder distension. external catheter in place. MUSCULOSKELETAL: Extremities without clubbing. Edema to bilateral upper and lower extremities. NEUROLOGICAL: awake, oriented to self, family, hospital. Very little insight into conditions, hospitalization. Follows simple commands. Moving all 4 extremities. PSYCHIATRIC: No apparent distress. . Diagnostic Tests Laboratory Laboratory Tests Test 05/28/17 05:10 05/30/17 05:10 White Blood Count 26.3 TH/MM3 (4.0-11.0) 20.6 TH/MM3 (4.0-11.0) Red Blood Count 5.00 MIL/MM3 (4.50-5.90) 4.88 MIL/MM3 (4.50-5.90) Hemoglobin 14.5 GM/DL (13.0-17.0) 14.3 GM/DL (13.0-17.0) Hematocrit 43.7 % (39.0-51.0) 42.7 % (39.0-51.0) Mean Corpuscular Volume 87.5 FL (80.0-100.0) 87.5 FL (80.0-100.0) Mean Corpuscular Hemoglobin 29.1 PG (27.0-34.0) 29.2 PG (27.0-34.0) Mean Corpuscular Hemoglobin Concent 33.2 % (32.0-36.0) 33.4 % (32.0-36.0) Red Cell Distribution Width 16.8 % (11.6-17.2) 17.2 % (11.6-17.2) Platelet Count 151 TH/MM3 (150-450) 122 TH/MM3 (150-450) Mean Platelet Volume 8.3 FL (7.0-11.0) 10.0 FL (7.0-11.0) Blood Urea Nitrogen 40 MG/DL (7-18) Creatinine 0.72 MG/DL (0.60-1.30) Random Glucose 176 MG/DL (74-106) Calcium Level 8.5 MG/DL (8.5-10.1) Magnesium Level 2.4 MG/DL (1.5-2.5) Sodium Level 139 MEQ/L (136-145) Potassium Level 4.4 MEQ/L (3.5-5.1) Chloride Level 97 MEQ/L (98-107) Carbon Dioxide Level 34.6 MEQ/L (21.0-32.0) Anion Gap 7 MEQ/L (5-15) Estimat Glomerular Filtration Rate 130 ML/MIN (>89) Result Diagram: 05/30/17 0510 05/30/17 0510 Microbiology Microbiology Date/Time Source Procedure Growth Status 05/20/17 11:40 Sputum Endotracheal Gram Stain - Final Complete 05/20/17 11:40 Sputum Endotracheal Sputum Culture - Final HEAVY GROWTH NORMAL RESPIRATORY DARCIE Complete Imaging Last Impressions Chest X-Ray 05/26/17 0000 Signed Impressions: Service Date/Time: Friday, May 26, 2017 04:50 - CONCLUSION: Unchanged patchy parenchymal consolidations. Luis Marmolejo Jr., MD Abdomen X-Ray 05/22/17 0600 Signed Impressions: Service Date/Time: May 10:04 - CONCLUSION: The previously noted dilated small bowel have resolved. NG tube in the stomach. Jeff Foster MD Small Bowel X-Ray 05/14/17 0000 Signed Impressions: Service Date/Time: Sunday, May 14, 2017 11:20 - CONCLUSION: 1. Findings consistent with CT examination and suggestive of high grade obstruction in the distal jejunum/proximal ileum. Kwaku Vences MD Abdomen/Pelvis CT 05/13/17 1005 Signed Impressions: Service Date/Time: Saturday, May 13, 2017 11:36 - CONCLUSION: 1. Mid to distal jejunal small bowel ileus with acute transition characteristic of high grade small bowel obstruction. 2. Uncomplicated colonic diverticulosis. 3. Mild ascites. 4. Uncomplicated colonic diverticulosis. Conor John MD Procedures * 05/20/17 -endotracheally intubated * 05/27/17 -medical extubation . Assessment and Plan Disease Oriented Problem List: (1) Acute hypoxemic respiratory failure (2) Small bowel obstruction (3) COPD (chronic obstructive pulmonary disease) (4) Systolic heart failure (5) Cardiomyopathy (6) Leg ulcer, left Symptom Scale: (1) Abdominal pain 0-10 Scale: Unable to quantify (2) Dyspnea 0-10 Scale: Unable to quantify Pertinent Non-Medical Issues Psychosocial: Patient is single, never . No children. [employer] , disabled secondary to PTSD. Patient was born and raised in [place]. Highest level of education is high school. Patient has 2 siblings in the area, one cousin that lives in [place]. Spiritual: No yazidi affiliation. Legal: Advance directives completed. Ethical issues impacting care: No ethical issues identified. . Important Contacts HCS/cousin Kathie Saavedra . Alternate surrogate/cousin Dee Taylor . . Prognosis Mr. Rocha is a 72-year-old male with a medical history significant for CHF, COPD, atrial fibrillation, medication noncompliance. Patient with significant progression of cardiopulmonary disease. He is O2 dependent, EF of 20%. Patient admitted for small bowel obstruction, somewhat improving. However, patient remains at high risk for further complications, continued decline and . Patient appears hospice appropriate should he elects comfort-directed care given significant cardiopulmonary disease. . Code Status: Full Code Plan * CODE STATUS: DNR * HEALTHCARE DECISION-MAKING: Patient unable to participating medical decision making at this time secondary to clinical condition, remains encephalopathic status post medical extubation. Advance directives completed. Patient has designated is cousin Kathie Saavedra as healthcare surrogate decision maker , alternate is cousin Dee Taylor. * GOALS OF CARE: Pt alert but still confused, limited ability to participate. Per previous interactions with patient healthcare surrogate: She feels she should honor his wishes and if he says no more tubes, then she would want him to be DNR/no intubation. Review that if he did experience further decline in resp or cardiac status, if no resuscitation is desired then comfort measures would be the remaining option to allow him to be comfortable and dignified if condition deteriorated, introduced hospice. She is open to talking about that (comfort care) more if the time arises for now she wishes to continue other medical treatments. * SYMPTOMS: = Abdominal pain, secondary to SBO. Resolving. Having BMs = Shortness of breath: Secondary to COPD, CHF exacerbation. Medically extubated tolerating nasal cannula = Debility: chronic. Rehabilitation was recommended during prior admission, patient declined. PT following during this admission, home with home health recommended. = Dysphagia: Swallowing deficits, high risk for aspiration ST following recommended for honey thick diet * Palliative care contact information has been provided to patient and family. * Palliative care will continue to follow up for further clarification of goals of care as patient's clinical course continues to evolve. . Attestation To help prompt me to consider important information that might be impacting today's encounter and assessment, information from prior notes written by myself or my colleagues may have been "brought forward" into today's note. My signature on this note, however, is an attestation that I personally performed the exam, history, and/or decision-making noted today, and, unless otherwise indicated, the interactions with patient, family, and staff as well as the review of records all occurred today. I also attest that the listed assessment and stated plan reflect my best clinical judgment today based on the combination of historical information, prior notes, and today's exam/ interactions. When time spent is documented, it refers only to time spent today by the signer, or if indicated, combined time spent today by collaborating physician/nurse practitioner. Yue Robert May 30, 2017 16:27
[2017-05-30] MEDS: LORazepam 2 MG/ML VIAL IV PRN (22:02)
[2017-05-31] VITALS (10 sets, daily range): BP systolic 109–129; BP diastolic 69–84; PULSE 58–95; RESP 15–30; TEMP 97.3–98.3; O2SAT 94–98
[2017-05-31] MEDS: CHLORHEXIDINE 0.12% (ORAL KIT) 15 ML CUP MT SCH ×2 (00:15→20:00)
[2017-05-31 06:49] LABS: HEMATOCRIT 41.1 % (39.0-51.0); HEMOGLOBIN 13.8 GM/DL (13.0-17.0); MEAN CELL VOLUME 87.5 FL (80.0-100.0); MEAN CORPUSCULAR HEMOGLOBIN 29.3 PG (27.0-34.0); MEAN CORPUSCULAR HGB CONC 33.5 % (32.0-36.0); MEAN PLATELET VOLUME 8.5 FL (7.0-11.0); RED CELL DISTRIBUTION WIDTH 16.8 % (11.6-17.2)
[2017-05-31 06:50] LABS: PLATELET COUNT 144 TH/MM3 (150-450)
[2017-05-31] MEDS: INSULIN ASPART SUPPLEMENTAL SCALE SQ SCH ×4 (08:00→21:00)
[2017-05-31] MEDS: BISACODYL 10 MG SUPP RECTAL SCH (09:00)
[2017-05-31] MEDS: COLLAGENASE OINT 30 GM TUBE TOPICAL SCH (09:00)
[2017-05-31] MEDS: DOCUSATE SODIUM 100 MG/10 ML UDC PO SCH ×2 (09:15→21:00)
[2017-05-31] MEDS: DILTIAZEM HCL 30 MG TAB PO SCH ×4 (09:15→21:55)
[2017-05-31] MEDS: CARVEDILOL 6.25 MG TAB PO SCH ×2 (09:15→21:55)
[2017-05-31] MEDS: LISINOPRIL 5 MG TAB PO SCH (09:15)
[2017-05-31] MEDS: predniSONE 20 MG TAB PO SCH ×2 (09:16→21:55)
[2017-05-31] MEDS: SODIUM CHLORIDE 0.9% FLUSH 10 ML FLUSH IV FLUSH SCH ×2 (09:18→21:55)
[2017-05-31] MEDS: FUROSEMIDE 40 MG/4 ML VIAL IV PUSH SCH (09:18)
[2017-05-31] MEDS: LORazepam 2 MG/ML VIAL IV PRN (14:02)
[2017-05-31] MEDS ORDERED: ENALAPRILAT 1.25 MG/ML VIAL IV PUSH PRN (15:15)
--- NOTE | 2017-05-31 17:04 | HHI.PR ---
Subjective Remarks The patient was lethargic but he did receive Ativan recently for agitation. He had no acute complaints. Discussed with nursing. Objective Vitals Vital Signs Date Time Temp Pulse Resp B/P (MAP) Pulse Ox O2 Delivery O2 Flow Rate FiO2 05/31/17 16:46 87 05/31/17 12:48 58 05/31/17 12:00 98 Nasal Cannula 4.00 Humidified 05/31/17 12:00 98.3 76 17 109/69 (82) 98 05/31/17 10:34 95 05/31/17 08:00 95 Nasal Cannula 4.00 Humidified 05/31/17 08:00 97.3 81 15 128/80 (96) 95 05/31/17 04:00 98.1 87 20 123/84 (97) 94 05/31/17 00:00 98.1 95 22 120/74 (89) 94 05/30/17 20:00 97.6 107 20 94/57 (69) 96 05/30/17 19:00 Nasal Cannula 4.00 40 Humidified 05/30/17 17:39 130 16 122/68 (86) 95 I/O 05/30/17 05/30/17 05/30/17 05/31/17 05/31/17 05/31/17 07:00 15:00 23:00 07:00 15:00 23:00 Intake Total 480 ml 120 ml Output Total 700 ml Balance -220 ml 120 ml Intake Oral 480 ml 120 ml Output Urine Total 700 ml Result Diagram: 05/31/17 0614 05/30/17 0510 Imaging Last Impressions Chest X-Ray 05/26/17 0000 Signed Impressions: Service Date/Time: Friday, May 26, 2017 04:50 - CONCLUSION: Unchanged patchy parenchymal consolidations. Luis Marmolejo Jr., MD Abdomen X-Ray 05/22/17 0600 Signed Impressions: Service Date/Time: May 10:04 - CONCLUSION: The previously noted dilated small bowel have resolved. NG tube in the stomach. Jeff Foster MD Small Bowel X-Ray 05/14/17 0000 Signed Impressions: Service Date/Time: Sunday, May 14, 2017 11:20 - CONCLUSION: 1. Findings consistent with CT examination and suggestive of high grade obstruction in the distal jejunum/proximal ileum. Kwaku Vences MD Abdomen/Pelvis CT 05/13/17 1005 Signed Impressions: Service Date/Time: Saturday, May 13, 2017 11:36 - CONCLUSION: 1. Mid to distal jejunal small bowel ileus with acute transition characteristic of high grade small bowel obstruction. 2. Uncomplicated colonic diverticulosis. 3. Mild ascites. 4. Uncomplicated colonic diverticulosis. Conor John MD Objective Remarks General: Resting in bed. Neuro: Drowsy, easily arousable, following commands. Has some disorientation. HEENT: NC, AT. Neck: No JVD. Pulm: good air entry bilaterally, no wheezing or crackles. CVS: S1-S2 regular, no murmur. GI: soft, nontender, minimal distention. Extremities: Warm bilaterally, trace edema. Medications and IVs Current Medications Medications (Trade) Dose Ordered Sig/Deacon Route Start Time Stop Time Status Last Admin (NS Flush) 2 ml UNSCH PRN IV FLUSH 05/13/17 13:15 05/28/17 05:08 (NS Flush) 2 ml BID IV FLUSH 05/13/17 21:00 05/31/17 09:18 (Narcan Inj) 0.4 mg UNSCH PRN IV PUSH 05/13/17 13:15 (Zofran Inj) 4 mg Q6HR PRN IV PUSH 05/13/17 13:15 05/28/17 10:36 (Coreg) 6.25 mg Q12HR PO 05/14/17 21:00 Future hold 05/31/17 09:15 (Santyl Oint) 1 applic DAILY TOPICAL 05/15/17 09:00 05/30/17 09:40 (Cardizem) 30 mg QID PO 05/14/17 18:00 Future hold 05/31/17 13:23 (Prinivil) 2.5 mg DAILY PO 05/15/17 09:00 Future hold 05/31/17 09:15 (Duoneb Neb) 1 ampule Q2HR NEB PRN NEB 05/14/17 15:45 05/28/17 11:08 (Pill Splitter) 1 ea UNSCH PRN OTHER 05/14/17 16:00 05/29/17 09:10 (Dulcolax Supp) 10 mg DAILY RECTAL 05/16/17 09:00 05/27/17 09:17 (Milk Of Magnesia Liq) 30 ml QID PRN PO 05/17/17 16:30 05/19/17 05:22 (Peridex 0.12% Liq) 15 ml BID@08,20 MT 05/20/17 20:00 05/29/17 07:48 (D50w (Vial) Inj) 50 ml UNSCH PRN IV PUSH 05/21/17 12:45 (Glucagon Inj) 1 mg UNSCH PRN OTHER 05/21/17 12:45 Potassium Chloride 100 ml @ 50 mls/hr Q2H PRN IV 05/22/17 09:15 Potassium Chloride 100 ml @ 50 mls/hr Q2H PRN IV 05/22/17 09:15 (K-Lyte Cl Eff) 50 meq UNSCH PRN PO 05/22/17 09:15 Potassium Chloride 100 ml @ 25 mls/hr UNSCH PRN IV 05/22/17 09:15 Potassium Chloride 100 ml @ 50 mls/hr Q2H PRN IV 05/22/17 09:15 Magnesium Sulfate 4 gm/Sodium Chloride 100 ml @ 50 mls/hr UNSCH PRN IV 05/22/17 09:15 (Mag-Ox) 800 mg UNSCH PRN PO 05/22/17 09:15 Magnesium Sulfate 2 gm/Sodium Chloride 100 ml @ 50 mls/hr UNSCH PRN IV 05/22/17 09:15 (K-Phos) 2,000 mg Q4H PRN PO 05/22/17 09:15 Sodium Phosphate 30 mmol/Sodium Chloride 250 ml @ 42 mls/hr UNSCH PRN IV 05/22/17 09:15 05/26/17 20:54 (K-Phos) 2,000 mg UNSCH PRN PO/TUBE 05/22/17 09:15 (Lasix Inj) 40 mg DAILY IV PUSH 05/22/17 13:30 05/31/17 09:18 (Colace Liq) 100 mg BID PO 05/24/17 09:00 05/31/17 09:15 (Trandate Inj) 10 mg Q4H PRN IV PUSH 05/28/17 08:00 (Deltasone) 20 mg BID PO 05/29/17 21:00 05/31/17 09:16 (NovoLOG SUPPLEMENTAL SCALE) 1 ACHS SLIDING SCALE SQ 05/30/17 17:00 05/30/17 17:34 (Reglan Inj) 10 mg Q8HR PRN IV PUSH 05/30/17 16:00 (Vasotec Inj) 1.25 mg Q6H PRN IV PUSH 05/31/17 15:15 (Duoneb Neb) 1 ampule TID NEB INH 05/31/17 20:00 A/P Assessment and Plan Acute hypoxemic respiratory failure/ COPD Extubated following C Pap trials on 05/27, tolerating nasal cannula. Pulmonology consult appreciated. - Solu-Medrol changed to prednisone. - d/c empiric Levaquin for COPD exacerbation. - PT/ OT/ ST. - Duonebs. Chronic systolic heart failure exacerbation EF reduced. Off Levophed. Chest x-ray previously showed worsening interstitial edema. Off heparin due to hemoptysis. - Continue IV Lasix. Resume lisinopril, Coreg, diltiazem for A. fib/CHF. - hold Aldactone for relative hypotension at times. SBO Dr. Murray following for small bowel obstruction, colonic ileus -> resolved. Surgery has signed off. - ADAT. Speech therapy following. - bowel regimen. Hemoptysis/ Bilateral DVT Pulmonary consult appreciated. Still coughing up clots at times. - heparin gtt on hold. Resume SQ heparin. - follow CBC. Stable. DM Glucose elevated at times. - change to low dose insulin sliding scale as needed. Agitation Likely s/t delirium - d/c Ativan. - check EKG to see if Seroquel is an option. - try to avoid restraints. PPx: Heparin SQ Mitch Catherine DO May 31, 2017 17:04
[2017-05-31] MEDS: RESP: ALBUTEROL 2.5 MG/IPRATROPIUM 0.5 MG NEB (SCH) INH (21:01)
[2017-06-01] VITALS (7 sets, daily range): BP systolic 114–159; BP diastolic 56–86; PULSE 66–86; RESP 14–27; TEMP 97.3–98.1; O2SAT 95–99
[2017-06-01 04:55] LABS: AUTOMATED NEUTROPHIL # 12.3 TH/MM3 (1.8-7.7); BASOPHIL # 0.1 TH/MM3 (0-0.2); BASOPHIL % 0.5 % (0.0-2.0); HEMATOCRIT 40.5 % (39.0-51.0); HEMOGLOBIN 13.5 GM/DL (13.0-17.0); LYMPH % 1.9 % (9.0-44.0); LYMPHOCYTE # 0.3 TH/MM3 (1.0-4.8); MEAN CELL VOLUME 88.5 FL (80.0-100.0); MEAN CORPUSCULAR HEMOGLOBIN 29.4 PG (27.0-34.0); MEAN CORPUSCULAR HGB CONC 33.2 % (32.0-36.0); MONOCYTE # 0.4 TH/MM3 (0-0.9); NEUT % 94.6 % (16.0-70.0); RED BLOOD COUNT 4.58 MIL/MM3 (4.50-5.90); RED CELL DISTRIBUTION WIDTH 16.9 % (11.6-17.2)
[2017-06-01 05:12] LABS: MEAN PLATELET VOLUME 7.6 FL (7.0-11.0); PLATELET COUNT 135 TH/MM3 (150-450)
[2017-06-01] MEDS: INSULIN ASPART SUPPLEMENTAL SCALE SQ SCH ×4 (08:00→21:00)
[2017-06-01] MEDS: CHLORHEXIDINE 0.12% (ORAL KIT) 15 ML CUP MT SCH ×2 (08:00→20:00)
[2017-06-01] MEDS: RESP: ALBUTEROL 2.5 MG/IPRATROPIUM 0.5 MG NEB (SCH) INH ×3 (08:40→19:52)
[2017-06-01] MEDS: BISACODYL 10 MG SUPP RECTAL SCH ×2 (09:00→09:24)
[2017-06-01] MEDS: COLLAGENASE OINT 30 GM TUBE TOPICAL SCH ×2 (09:00→09:23)
[2017-06-01] MEDS: LISINOPRIL 5 MG TAB PO SCH (09:22)
[2017-06-01] MEDS: FUROSEMIDE 40 MG/4 ML VIAL IV PUSH SCH (09:22)
[2017-06-01] MEDS: DILTIAZEM HCL 30 MG TAB PO SCH ×4 (09:22→22:05)
[2017-06-01] MEDS: CARVEDILOL 6.25 MG TAB PO SCH ×2 (09:22→22:05)
[2017-06-01] MEDS: predniSONE 20 MG TAB PO SCH ×2 (09:22→22:05)
[2017-06-01] MEDS: SODIUM CHLORIDE 0.9% FLUSH 10 ML FLUSH IV FLUSH SCH ×2 (09:23→22:06)
[2017-06-01] MEDS: DOCUSATE SODIUM 100 MG/10 ML UDC PO SCH ×2 (09:23→21:00)
--- NOTE | 2017-06-01 13:01 | EKG ---
Date Performed: 05/31/2017 Time Performed: 17:55:55 PTAGE: 72 years EKG: Sinus rhythm WITH FREQUENT VENTRICULAR PREMATURE COMPLEXES ABNORMAL RHYTHM ECG Compared to PREVIOUS TRACING , the atrial tachycardia has converted to sinus rhythm with frequent PVC s. The ST-T changes have improved. PREVIOUS TRACIN05/13/2017 09.58 DOCTOR: Alex Yun Interpretating Date/Time 06/01/2017 12:59:27
[2017-06-01] MEDS ORDERED: LORazepam 2 MG/ML VIAL IV PUSH ONE (13:45)
[2017-06-01] MEDS: QUEtiapine FUMARATE 25 MG TAB PO SCH ×3 (13:45→22:05)
--- NOTE | 2017-06-01 15:37 | HHI.PR ---
Subjective Remarks The patient was very agitated earlier, requiring IV Ativan. He is currently resting comfortably in bed. He had no acute complaints. Discussed with nursing. Objective Vitals Vital Signs Date Time Temp Pulse Resp B/P (MAP) Pulse Ox O2 Delivery O2 Flow Rate FiO2 06/01/17 12:00 97.6 80 20 122/76 (91) 96 06/01/17 08:41 95 Nasal Cannula 4.00 06/01/17 08:00 97.6 86 20 141/80 (100) 99 06/01/17 04:00 97.3 74 14 159/71 (100) 97 06/01/17 00:00 97.6 69 20 114/56 (75) 96 05/31/17 21:01 96 Nasal Cannula 4.00 05/31/17 20:00 97.7 73 30 126/75 (92) 97 05/31/17 20:00 61 05/31/17 19:00 96 Nasal Cannula 4.00 05/31/17 16:46 87 05/31/17 16:00 96 Humidified 4.00 05/31/17 16:00 97.5 68 17 129/79 (96) 96 I/O 05/31/17 05/31/17 05/31/17 06/01/17 06/01/17 06/01/17 07:00 15:00 23:00 07:00 15:00 23:00 Intake Total 120 ml 960 ml Balance 120 ml 960 ml Intake Oral 120 ml 960 ml # Voids 6 Result Diagram: 06/01/17 0445 05/30/17 0510 Imaging Last Impressions Chest X-Ray 05/26/17 0000 Signed Impressions: Service Date/Time: Friday, May 26, 2017 04:50 - CONCLUSION: Unchanged patchy parenchymal consolidations. Luis Marmolejo Jr., MD Abdomen X-Ray 05/22/17 0600 Signed Impressions: Service Date/Time: May 10:04 - CONCLUSION: The previously noted dilated small bowel have resolved. NG tube in the stomach. Jeff Foster MD Small Bowel X-Ray 05/14/17 0000 Signed Impressions: Service Date/Time: Sunday, May 14, 2017 11:20 - CONCLUSION: 1. Findings consistent with CT examination and suggestive of high grade obstruction in the distal jejunum/proximal ileum. Kwaku Vences MD Abdomen/Pelvis CT 05/13/17 1005 Signed Impressions: Service Date/Time: Saturday, May 13, 2017 11:36 - CONCLUSION: 1. Mid to distal jejunal small bowel ileus with acute transition characteristic of high grade small bowel obstruction. 2. Uncomplicated colonic diverticulosis. 3. Mild ascites. 4. Uncomplicated colonic diverticulosis. Conor John MD Objective Remarks General: Resting in bed. Neuro: Drowsy, easily arousable, following commands. Has some disorientation. HEENT: NC, AT. Neck: No JVD. Pulm: good air entry bilaterally, no wheezing or crackles. CVS: S1-S2 regular, no murmur. GI: soft, nontender, minimal distention. Extremities: Warm bilaterally, trace edema. Neuro: No gross deficits. Medications and IVs Current Medications Medications (Trade) Dose Ordered Sig/Deacon Route Start Time Stop Time Status Last Admin (NS Flush) 2 ml UNSCH PRN IV FLUSH 05/13/17 13:15 05/28/17 05:08 (NS Flush) 2 ml BID IV FLUSH 05/13/17 21:00 06/01/17 09:23 (Narcan Inj) 0.4 mg UNSCH PRN IV PUSH 05/13/17 13:15 (Zofran Inj) 4 mg Q6HR PRN IV PUSH 05/13/17 13:15 05/28/17 10:36 (Coreg) 6.25 mg Q12HR PO 05/14/17 21:00 Future hold 06/01/17 09:22 (Santyl Oint) 1 applic DAILY TOPICAL 05/15/17 09:00 06/01/17 09:23 (Cardizem) 30 mg QID PO 05/14/17 18:00 Future hold 06/01/17 12:56 (Prinivil) 2.5 mg DAILY PO 05/15/17 09:00 Future hold 06/01/17 09:22 (Duoneb Neb) 1 ampule Q2HR NEB PRN NEB 05/14/17 15:45 05/28/17 11:08 (Pill Splitter) 1 ea UNSCH PRN OTHER 05/14/17 16:00 05/29/17 09:10 (Dulcolax Supp) 10 mg DAILY RECTAL 05/16/17 09:00 06/01/17 09:24 (Milk Of Magnesia Liq) 30 ml QID PRN PO 05/17/17 16:30 05/19/17 05:22 (Peridex 0.12% Liq) 15 ml BID@08,20 MT 05/20/17 20:00 06/01/17 08:00 (D50w (Vial) Inj) 50 ml UNSCH PRN IV PUSH 05/21/17 12:45 (Glucagon Inj) 1 mg UNSCH PRN OTHER 05/21/17 12:45 Potassium Chloride 100 ml @ 50 mls/hr Q2H PRN IV 05/22/17 09:15 Potassium Chloride 100 ml @ 50 mls/hr Q2H PRN IV 05/22/17 09:15 (K-Lyte Cl Eff) 50 meq UNSCH PRN PO 05/22/17 09:15 Potassium Chloride 100 ml @ 25 mls/hr UNSCH PRN IV 05/22/17 09:15 Potassium Chloride 100 ml @ 50 mls/hr Q2H PRN IV 05/22/17 09:15 Magnesium Sulfate 4 gm/Sodium Chloride 100 ml @ 50 mls/hr UNSCH PRN IV 05/22/17 09:15 (Mag-Ox) 800 mg UNSCH PRN PO 05/22/17 09:15 Magnesium Sulfate 2 gm/Sodium Chloride 100 ml @ 50 mls/hr UNSCH PRN IV 05/22/17 09:15 (K-Phos) 2,000 mg Q4H PRN PO 05/22/17 09:15 Sodium Phosphate 30 mmol/Sodium Chloride 250 ml @ 42 mls/hr UNSCH PRN IV 05/22/17 09:15 05/26/17 20:54 (K-Phos) 2,000 mg UNSCH PRN PO/TUBE 05/22/17 09:15 (Lasix Inj) 40 mg DAILY IV PUSH 05/22/17 13:30 06/01/17 09:22 (Colace Liq) 100 mg BID PO 05/24/17 09:00 06/01/17 09:23 (Trandate Inj) 10 mg Q4H PRN IV PUSH 05/28/17 08:00 (Deltasone) 20 mg BID PO 05/29/17 21:00 06/01/17 09:22 (NovoLOG SUPPLEMENTAL SCALE) 1 ACHS SLIDING SCALE SQ 05/30/17 17:00 05/30/17 17:34 (Reglan Inj) 10 mg Q8HR PRN IV PUSH 05/30/17 16:00 (Vasotec Inj) 1.25 mg Q6H PRN IV PUSH 05/31/17 15:15 (Duoneb Neb) 1 ampule TID NEB INH 05/31/17 20:00 06/01/17 08:40 (SEROquel) 25 mg BID PO 06/01/17 13:45 06/01/17 13:59 A/P Assessment and Plan Acute hypoxemic respiratory failure/ COPD Extubated following C Pap trials on 05/27, tolerating nasal cannula. Pulmonology consult appreciated. - Solu-Medrol changed to prednisone 20 mg twice a day. - d/c empiric Levaquin for COPD exacerbation. - PT/ OT/ ST. - Duonebs. Chronic systolic heart failure exacerbation EF reduced. Off Levophed. Chest x-ray previously showed worsening interstitial edema. Off heparin due to hemoptysis. - Continue IV Lasix. Resume lisinopril, Coreg, diltiazem for A. fib/CHF. - hold Aldactone for relative hypotension at times. SBO Dr. Murray following for small bowel obstruction, colonic ileus -> resolved. Surgery has signed off. - ADAT. Speech therapy following. - bowel regimen. Hemoptysis/ Bilateral DVT Pulmonary consult appreciated. Still coughing up clots at times. - heparin gtt on hold. Resume SQ heparin. - follow CBC. Stable. DM Glucose elevated at times. - change to low dose insulin sliding scale as needed. Agitation Likely s/t delirium - Ativan for severe agitation. - Start Seroquel 25 mg by mouth twice a day as QTc is not prolonged. - try to avoid restraints. PPx: Heparin SQ Mitch Catherine DO Jun 01, 2017 15:37
[2017-06-02] VITALS (9 sets, daily range): BP systolic 109–141; BP diastolic 69–80; PULSE 62–91; RESP 17–24; TEMP 97.6–98.4; O2SAT 92–100
[2017-06-02] MEDS: INSULIN ASPART SUPPLEMENTAL SCALE SQ SCH ×4 (08:00→22:18)
[2017-06-02] MEDS: CHLORHEXIDINE 0.12% (ORAL KIT) 15 ML CUP MT SCH ×2 (08:00→20:00)
[2017-06-02] MEDS: RESP: ALBUTEROL 2.5 MG/IPRATROPIUM 0.5 MG NEB (SCH) INH ×3 (08:08→19:53)
[2017-06-02] MEDS: BISACODYL 10 MG SUPP RECTAL SCH (09:00)
[2017-06-02] MEDS: DOCUSATE SODIUM 100 MG/10 ML UDC PO SCH ×2 (11:19→21:00)
[2017-06-02] MEDS: LISINOPRIL 5 MG TAB PO SCH (11:20)
[2017-06-02] MEDS: FUROSEMIDE 40 MG/4 ML VIAL IV PUSH SCH (11:20)
[2017-06-02] MEDS: DILTIAZEM HCL 30 MG TAB PO SCH ×4 (11:20→22:13)
[2017-06-02] MEDS: SODIUM CHLORIDE 0.9% FLUSH 10 ML FLUSH IV FLUSH SCH ×2 (11:20→22:14)
[2017-06-02] MEDS: CARVEDILOL 6.25 MG TAB PO SCH ×2 (11:20→22:13)
[2017-06-02] MEDS: predniSONE 20 MG TAB PO SCH ×2 (12:17→22:13)
[2017-06-02] MEDS: QUEtiapine FUMARATE 25 MG TAB PO SCH ×2 (12:17→22:13)
[2017-06-02] MEDS: COLLAGENASE OINT 30 GM TUBE TOPICAL SCH (12:18)
--- NOTE | 2017-06-02 15:50 | HHI.PR ---
Subjective Remarks The patient was resting comfortably in bed. He denied any acute complaints. He wanted to sit up. He wanted to go home. He did not want to go to rehabilitation when he was discharged from the hospital. He said he was hungry. Discussed with nursing. Objective Vitals Vital Signs Date Time Temp Pulse Resp B/P (MAP) Pulse Ox O2 Delivery O2 Flow Rate FiO2 06/02/17 12:00 98.1 85 18 140/80 (100) 97 06/02/17 11:28 83 140/80 (100) 06/02/17 08:09 97 Nasal Cannula 2.00 06/02/17 08:00 98.4 76 18 109/73 (85) 98 06/02/17 03:57 97.7 75 17 141/69 (93) 92 06/02/17 00:00 97.6 75 24 138/74 (95) 96 06/01/17 20:00 98.1 79 27 140/86 (104) 99 06/01/17 20:00 82 06/01/17 19:00 92 Nasal Cannula 4.00 06/01/17 16:00 97.8 82 20 122/75 (91) 96 06/01/17 16:00 66 I/O 06/01/17 06/01/17 06/01/17 06/02/17 06/02/17 06/02/17 07:00 15:00 23:00 07:00 15:00 23:00 Intake Total 480 ml Balance 480 ml Intake Oral 480 ml # Voids 6 Result Diagram: 06/01/17 0445 05/30/17 0510 Imaging Last Impressions Chest X-Ray 05/26/17 0000 Signed Impressions: Service Date/Time: Friday, May 26, 2017 04:50 - CONCLUSION: Unchanged patchy parenchymal consolidations. Luis Marmolejo Jr., MD Abdomen X-Ray 05/22/17 0600 Signed Impressions: Service Date/Time: May 10:04 - CONCLUSION: The previously noted dilated small bowel have resolved. NG tube in the stomach. Jeff Foster MD Small Bowel X-Ray 05/14/17 0000 Signed Impressions: Service Date/Time: Sunday, May 14, 2017 11:20 - CONCLUSION: 1. Findings consistent with CT examination and suggestive of high grade obstruction in the distal jejunum/proximal ileum. Kwaku Vences MD Abdomen/Pelvis CT 05/13/17 1005 Signed Impressions: Service Date/Time: Saturday, May 13, 2017 11:36 - CONCLUSION: 1. Mid to distal jejunal small bowel ileus with acute transition characteristic of high grade small bowel obstruction. 2. Uncomplicated colonic diverticulosis. 3. Mild ascites. 4. Uncomplicated colonic diverticulosis. Conor John MD Objective Remarks General: Resting in bed. Neuro: Drowsy, easily arousable, following commands. Has some disorientation. HEENT: NC, AT. Neck: No JVD. Pulm: good air entry bilaterally, no wheezing or crackles. CVS: S1-S2 regular, no murmur. GI: soft, nontender, minimal distention. Extremities: Warm bilaterally, trace edema. Neuro: No gross deficits. Psych: Calm. Medications and IVs Current Medications Medications (Trade) Dose Ordered Sig/Deacon Route Start Time Stop Time Status Last Admin (NS Flush) 2 ml UNSCH PRN IV FLUSH 05/13/17 13:15 05/28/17 05:08 (NS Flush) 2 ml BID IV FLUSH 05/13/17 21:00 06/02/17 11:20 (Narcan Inj) 0.4 mg UNSCH PRN IV PUSH 05/13/17 13:15 (Zofran Inj) 4 mg Q6HR PRN IV PUSH 05/13/17 13:15 05/28/17 10:36 (Coreg) 6.25 mg Q12HR PO 05/14/17 21:00 Future hold 06/02/17 11:20 (Santyl Oint) 1 applic DAILY TOPICAL 05/15/17 09:00 06/02/17 12:18 (Cardizem) 30 mg QID PO 05/14/17 18:00 Future hold 06/02/17 11:20 (Prinivil) 2.5 mg DAILY PO 05/15/17 09:00 Future hold 06/02/17 11:20 (Duoneb Neb) 1 ampule Q2HR NEB PRN NEB 05/14/17 15:45 05/28/17 11:08 (Pill Splitter) 1 ea UNSCH PRN OTHER 05/14/17 16:00 05/29/17 09:10 (Dulcolax Supp) 10 mg DAILY RECTAL 05/16/17 09:00 05/27/17 09:17 (Milk Of Magnesia Liq) 30 ml QID PRN PO 05/17/17 16:30 05/19/17 05:22 (Peridex 0.12% Liq) 15 ml BID@08,20 MT 05/20/17 20:00 06/01/17 20:00 (D50w (Vial) Inj) 50 ml UNSCH PRN IV PUSH 05/21/17 12:45 (Glucagon Inj) 1 mg UNSCH PRN OTHER 05/21/17 12:45 Potassium Chloride 100 ml @ 50 mls/hr Q2H PRN IV 05/22/17 09:15 Potassium Chloride 100 ml @ 50 mls/hr Q2H PRN IV 05/22/17 09:15 (K-Lyte Cl Eff) 50 meq UNSCH PRN PO 05/22/17 09:15 Potassium Chloride 100 ml @ 25 mls/hr UNSCH PRN IV 05/22/17 09:15 Potassium Chloride 100 ml @ 50 mls/hr Q2H PRN IV 05/22/17 09:15 Magnesium Sulfate 4 gm/Sodium Chloride 100 ml @ 50 mls/hr UNSCH PRN IV 05/22/17 09:15 (Mag-Ox) 800 mg UNSCH PRN PO 05/22/17 09:15 Magnesium Sulfate 2 gm/Sodium Chloride 100 ml @ 50 mls/hr UNSCH PRN IV 05/22/17 09:15 (K-Phos) 2,000 mg Q4H PRN PO 05/22/17 09:15 Sodium Phosphate 30 mmol/Sodium Chloride 250 ml @ 42 mls/hr UNSCH PRN IV 05/22/17 09:15 05/26/17 20:54 (K-Phos) 2,000 mg UNSCH PRN PO/TUBE 05/22/17 09:15 (Lasix Inj) 40 mg DAILY IV PUSH 05/22/17 13:30 06/02/17 11:20 (Colace Liq) 100 mg BID PO 05/24/17 09:00 06/02/17 11:19 (Trandate Inj) 10 mg Q4H PRN IV PUSH 05/28/17 08:00 (Deltasone) 20 mg BID PO 3/15/18 21:00 06/02/17 12:17 (NovoLOG SUPPLEMENTAL SCALE) 1 ACHS SLIDING SCALE SQ 05/30/17 17:00 05/30/17 17:34 (Reglan Inj) 10 mg Q8HR PRN IV PUSH 05/30/17 16:00 (Vasotec Inj) 1.25 mg Q6H PRN IV PUSH 05/31/17 15:15 (Duoneb Neb) 1 ampule TID NEB INH 05/31/17 20:00 06/02/17 08:08 (SEROquel) 25 mg BID PO 06/01/17 13:45 06/02/17 12:17 A/P Assessment and Plan Acute hypoxemic respiratory failure/ COPD Extubated following C Pap trials on 05/27, tolerating nasal cannula. Pulmonology consult appreciated. - Solu-Medrol changed to prednisone 20 mg twice a day. - d/c empiric Levaquin for COPD exacerbation. - PT/ OT/ ST. - Duonebs. Chronic systolic heart failure exacerbation EF reduced. Off Levophed. Chest x-ray previously showed worsening interstitial edema. Off heparin due to hemoptysis. - Continue IV Lasix. Resume lisinopril, Coreg, diltiazem for A. fib/CHF. - hold Aldactone for relative hypotension at times. Consider resuming as blood pressure has been normal. SBO Dr. Murray following for small bowel obstruction, colonic ileus -> resolved. Surgery has signed off. - ADAT. Speech therapy following. Currently on pureed diet. - bowel regimen. Hemoptysis/ Bilateral DVT The pt was coughing up blood clots. Seems resolved. Pulmonary consult appreciated. - heparin gtt on hold. Resumed SQ heparin. - follow CBC. Stable. DM Glucose elevated at times. - change to low dose insulin sliding scale as needed. Agitation Likely s/t delirium - Ativan for severe agitation. - Started Seroquel 25 mg by mouth twice a day as QTc is not prolonged. Increase dose if needed. - try to avoid restraints. PPx: Heparin SQ Discharge Planning The pt needs rehab but is refusing. Will need to be off restraints 24 hours, however. As he is prone to delirium he would not be a good candidate for discharge with [facility]. Mitch Catherine DO Jun 02, 2017 15:50
--- NOTE | 2017-06-02 16:22 | HHI.PR ---
Subjective Remarks , NO DISTRESS ON O2 N/C Objective Vital Signs Date Time Temp Pulse Resp B/P (MAP) Pulse Ox O2 Delivery O2 Flow Rate FiO2 06/02/17 12:00 98.1 85 18 140/80 (100) 97 06/02/17 11:28 83 140/80 (100) 06/02/17 08:09 97 Nasal Cannula 2.00 06/02/17 08:00 98.4 76 18 109/73 (85) 98 06/02/17 03:57 97.7 75 17 141/69 (93) 92 06/02/17 00:00 97.6 75 24 138/74 (95) 96 06/01/17 20:00 98.1 79 27 140/86 (104) 99 06/01/17 20:00 82 06/01/17 19:00 92 Nasal Cannula 4.00 I/O 06/01/17 06/01/17 06/01/17 06/02/17 06/02/17 06/02/17 07:00 15:00 23:00 07:00 15:00 23:00 Intake Total 480 ml Balance 480 ml Intake Oral 480 ml # Voids 6 Result Diagram: 06/01/17 0445 05/30/17 0510 Objective Remarks GENERAL: sedated on ventilator SKIN: Warm and dry. HEAD: Atraumatic. Normocephalic. EYES: Pupils equal and round. No scleral icterus. No injection or drainage. ENT: No nasal bleeding or discharge. Mucous membranes pink and moist. NECK: Trachea midline. No JVD. CARDIOVASCULAR: Regular rate and rhythm. RESPIRATORY: No accessory muscle use. Clear to auscultation. Breath sounds equal bilaterally. GASTROINTESTINAL: Abdomen soft, non-tender, nondistended. Hepatic and splenic margins not palpable. MUSCULOSKELETAL: Extremities without clubbing, cyanosis, or edema. No obvious deformities. NEUROLOGICAL: Awake and alert. No obvious cranial nerve deficits. Motor grossly within normal limits. Five out of 5 muscle strength in the arms and legs. Normal speech. PSYCHIATRIC: Appropriate mood and affect; insight and judgment normal. Assessment and Plan Assessment and Plan assessment respiratory failure NOW ON N/C COPD CHF HTN HLD PLAN O2 NEEDED PULM TOILET increase activity Tania Marin MD Jun 02, 2017 16:22
[2017-06-03] VITALS (10 sets, daily range): BP systolic 100–147; BP diastolic 55–75; PULSE 59–105; RESP 14–20; TEMP 97–98.9; O2SAT 92–100
[2017-06-03 07:02] LABS: HEMATOCRIT 42.5 % (39.0-51.0); MEAN CELL VOLUME 89.9 FL (80.0-100.0); MEAN CORPUSCULAR HEMOGLOBIN 29.6 PG (27.0-34.0); MEAN PLATELET VOLUME 9.5 FL (7.0-11.0); RED BLOOD COUNT 4.73 MIL/MM3 (4.50-5.90); RED CELL DISTRIBUTION WIDTH 17.4 % (11.6-17.2); WHITE BLOOD COUNT 15.5 TH/MM3 (4.0-11.0)
[2017-06-03 07:39] LABS: PLATELET COUNT 84 TH/MM3 (150-450)
[2017-06-03] MEDS: INSULIN ASPART SUPPLEMENTAL SCALE SQ SCH ×4 (08:00→21:00)
[2017-06-03] MEDS: CHLORHEXIDINE 0.12% (ORAL KIT) 15 ML CUP MT SCH ×2 (08:00→20:00)
[2017-06-03] MEDS: DILTIAZEM HCL 30 MG TAB PO SCH ×4 (08:20→21:57)
[2017-06-03] MEDS: COLLAGENASE OINT 30 GM TUBE TOPICAL SCH (08:21)
[2017-06-03] MEDS: CARVEDILOL 6.25 MG TAB PO SCH ×2 (08:21→21:57)
[2017-06-03] MEDS: DOCUSATE SODIUM 100 MG/10 ML UDC PO SCH ×2 (08:21→21:58)
[2017-06-03] MEDS: QUEtiapine FUMARATE 25 MG TAB PO SCH ×2 (08:21→21:57)
[2017-06-03] MEDS: LISINOPRIL 5 MG TAB PO SCH (08:21)
[2017-06-03] MEDS: predniSONE 20 MG TAB PO SCH ×2 (08:21→21:57)
[2017-06-03] MEDS: BISACODYL 10 MG SUPP RECTAL SCH (08:21)
[2017-06-03] MEDS: FUROSEMIDE 40 MG/4 ML VIAL IV PUSH SCH (08:22)
[2017-06-03] MEDS: SODIUM CHLORIDE 0.9% FLUSH 10 ML FLUSH IV FLUSH SCH ×2 (08:25→21:58)
[2017-06-03] MEDS: RESP: ALBUTEROL 2.5 MG/IPRATROPIUM 0.5 MG NEB (SCH) INH ×3 (08:43→20:44)
--- NOTE | 2017-06-03 09:43 | HHI.PR ---
Subjective Remarks Follow-up respiratory failure, COPD, CHF. Per nursing, patient has been stable overnight. Still requiring oxygen. The patient states that his breathing is "okay". He has no complaints at this time. Objective Vitals Vital Signs Date Time Temp Pulse Resp B/P (MAP) Pulse Ox O2 Delivery O2 Flow Rate FiO2 06/03/17 08:44 98 Nasal Cannula 2.00 06/03/17 08:00 97.1 70 16 104/66 (79) 92 06/03/17 04:00 98.9 59 19 147/75 (99) 99 06/03/17 04:00 80 06/03/17 00:40 98.9 59 19 147/75 (99) 99 06/03/17 00:00 105 06/03/17 00:00 97.5 98 20 100/59 (73) 98 06/02/17 20:00 97.9 85 18 121/80 (94) 99 06/02/17 20:00 99 Nasal Cannula 2.00 06/02/17 20:00 91 06/02/17 19:53 100 Nasal Cannula 2.00 06/02/17 16:00 97.6 80 18 132/72 (92) 99 06/02/17 12:00 98.1 85 18 140/80 (100) 97 06/02/17 11:28 83 140/80 (100) I/O 06/02/17 06/02/17 06/02/17 06/03/17 06/03/17 06/03/17 06:59 14:59 22:59 06:59 14:59 22:59 Intake Total 760 ml 240 ml Balance 760 ml 240 ml Intake Oral 760 ml 240 ml # Voids 3 2 # Bowel Movements 1 Result Diagram: 06/03/17 0500 05/30/17 0510 Imaging Last Impressions Chest X-Ray 05/26/17 0000 Signed Impressions: Service Date/Time: Friday, May 26, 2017 04:50 - CONCLUSION: Unchanged patchy parenchymal consolidations. Luis Marmolejo Jr., MD Abdomen X-Ray 05/22/17 0600 Signed Impressions: Service Date/Time: May 10:04 - CONCLUSION: The previously noted dilated small bowel have resolved. NG tube in the stomach. Jeff Foster MD Small Bowel X-Ray 05/14/17 0000 Signed Impressions: Service Date/Time: Sunday, May 14, 2017 11:20 - CONCLUSION: 1. Findings consistent with CT examination and suggestive of high grade obstruction in the distal jejunum/proximal ileum. Kwaku Vences MD Abdomen/Pelvis CT 05/13/17 1005 Signed Impressions: Service Date/Time: Saturday, May 13, 2017 11:36 - CONCLUSION: 1. Mid to distal jejunal small bowel ileus with acute transition characteristic of high grade small bowel obstruction. 2. Uncomplicated colonic diverticulosis. 3. Mild ascites. 4. Uncomplicated colonic diverticulosis. Conor John MD Objective Remarks General: No acute distress. Heart: Regular rate and rhythm. No murmur. Lungs: Clear to auscultation bilaterally. No wheezes, rales, or rhonchi. Breathing is nonlabored. Abdomen: Soft, nontender, nondistended. Extremities: Trace bilateral lower extremity edema. SCDs. Psych: Sleeping, but awakens easily. Follows commands. Somewhat confused. Procedures 05/20/17 intubation 05/21/17 central line placement, right subclavian Urinary Catheter: No Vascular Central Line Catheter: Yes Assessment to: Remove Date of Insertion: May 21, 2017 Line: Central Venous Catheter Side: Right Location: Subclavian A/P Assessment and Plan 1. Acute hypoxemic respiratory failure: Improved. Patient was intubated on 05/20 and extubated on 05/27/17. Now tolerating oxygen per nasal cannula. Appreciate pulmonology recommendations. Continue prednisone, bronchodilators. 2. Chronic systolic congestive heart failure with exacerbation: Continue IV Lasix. Continue lisinopril, Coreg, diltiazem. Aldactone on hold for relative hypotension. 3. Atrial fibrillation: Continue diltiazem. 4. Hemoptysis: Resolved. Appreciate pulmonology recommendations. H&H are stable. 5. Small bowel obstruction: General surgery has signed off. Continue pured diet per speech therapy. Continue bowel regimen. 6. Diabetes mellitus: Monitor Accu-Cheks and cover with sliding scale insulin. 7. Agitation: Likely secondary to delirium. Ativan for severe symptoms. Continue Seroquel twice daily. Currently requiring restraints as he is pulling at his central line. 8. Thrombocytopenia: Platelets are trending down. The patient was on heparin drip, but that was discontinued on 05/22/17. Consult hematology. 9. DVT prophylaxis: SCDs. Anticoagulation secondary to hemoptysis. Jair Christina MD Jun 03, 2017 09:43
--- NOTE | 2017-06-03 19:41 | HHI.PR ---
Subjective Remarks , NO DISTRESS ON O2 N/C Objective Vital Signs Date Time Temp Pulse Resp B/P (MAP) Pulse Ox O2 Delivery O2 Flow Rate FiO2 06/03/17 16:00 97.0 76 16 140/62 (88) 100 06/03/17 16:00 100 2.00 06/03/17 14:18 80 06/03/17 12:00 97.6 78 16 105/55 (72) 99 06/03/17 12:00 99 Nasal Cannula 2.00 06/03/17 08:44 98 Nasal Cannula 2.00 06/03/17 08:20 98 Nasal Cannula 2.00 06/03/17 08:05 79 06/03/17 08:00 97.1 70 16 104/66 (79) 92 06/03/17 04:00 98.9 59 19 147/75 (99) 99 06/03/17 04:00 80 06/03/17 00:40 98.9 59 19 147/75 (99) 99 06/03/17 00:00 105 06/03/17 00:00 97.5 98 20 100/59 (73) 98 06/02/17 20:00 97.9 85 18 121/80 (94) 99 06/02/17 20:00 99 Nasal Cannula 2.00 06/02/17 20:00 91 06/02/17 19:53 100 Nasal Cannula 2.00 I/O 06/02/17 06/02/17 06/02/17 06/03/17 06/03/17 06/03/17 07:00 15:00 23:00 07:00 15:00 23:00 Intake Total 760 ml 240 ml 360 ml Balance 760 ml 240 ml 360 ml Intake Oral 760 ml 240 ml 360 ml # Voids 3 2 3 # Bowel Movements 1 Result Diagram: 06/03/17 0500 05/30/17 0510 Objective Remarks GENERAL: sedated on ventilator SKIN: Warm and dry. HEAD: Atraumatic. Normocephalic. EYES: Pupils equal and round. No scleral icterus. No injection or drainage. ENT: No nasal bleeding or discharge. Mucous membranes pink and moist. NECK: Trachea midline. No JVD. CARDIOVASCULAR: Regular rate and rhythm. RESPIRATORY: No accessory muscle use. Clear to auscultation. Breath sounds equal bilaterally. GASTROINTESTINAL: Abdomen soft, non-tender, nondistended. Hepatic and splenic margins not palpable. MUSCULOSKELETAL: Extremities without clubbing, cyanosis, or edema. No obvious deformities. NEUROLOGICAL: Awake and alert. No obvious cranial nerve deficits. Motor grossly within normal limits. Five out of 5 muscle strength in the arms and legs. Normal speech. PSYCHIATRIC: Appropriate mood and affect; insight and judgment normal. Assessment and Plan Assessment and Plan assessment respiratory failure NOW ON N/C COPD CHF PLAN O2 NEEDED NEB ALBUTEROL increase activity Tania Marin MD Jun 03, 2017 19:41
[2017-06-04] VITALS (7 sets, daily range): BP systolic 91–140; BP diastolic 55–84; PULSE 71–79; RESP 16–20; TEMP 96.2–98.7; O2SAT 93–98
--- NOTE | 2017-06-04 02:07 | MB ---
cc: Aidan Cuevas MD DATE: 06/03/2017 REASON FOR CONSULTATION: Patient with thrombocytopenia and history of bilateral lower extremity DVT. HISTORY OF PRESENT ILLNESS: This is a 72-year-old male who has had a complicated hospital course. He has a history of tobacco abuse and COPD and is chronically on home oxygen. He has a history of congestive heart failure with an ejection fraction of 20-25%. He has chronic AFib. He developed bilateral lower extremity DVT in March 2017 and was on Coumadin. He was brought to the hospital with nausea, vomiting and bowel obstruction. CT of the abdomen and pelvis was consistent with small bowel obstruction which is high grade. He has been seen by Surgery. During the course of his hospital admission, he became acutely hypoxemic. His O2 saturations dropped into the 70s. He developed interstitial edema and pulmonary vascular congestion with CHF exacerbation. The patient was initially placed on a nonrebreather mask. Surgery saw this patient for bowel obstruction. He was intubated. Eventually his bowel obstruction resolved. He developed hemoptysis while he was receiving heparin GTT for AFib and bilateral lower extremity DVT. The hemoptysis had resolved. He was eventually extubated on 05/27/2017. His platelet count has been declining over the past several days. Upon review of records, on 05/28/2017, his platelet count was 151,000. This has precipitously dropped to 84,000 on 06/03/2017. Heparin drip has been stopped. Hematology has been consulted to make further recommendations. At the time of my examination, the patient was quite lethargic and sleepy. I tried to wake him up, but he opened his eyes and then went back to sleep. I spoke with his nurse and she stated that his mental status waxes and wanes and he has been experiencing delirium. REVIEW OF SYSTEMS: Unable to be obtained, due to patient's mental status. PAST MEDICAL HISTORY: COPD on chronic supplemental oxygen fibrillation, AFib on Coumadin, chronic systolic CHF with EF of 20%, bilateral lower extremity DVT, hypertension. PAST SURGICAL HISTORY: History of bowel blockage; unclear whether he had surgery in the early 1970s; hernia surgery in the . FAMILY HISTORY: Could not be obtained, due to patient's mental status. SOCIAL HISTORY: Could not be obtained. He has an extensive history of tobacco abuse; apparently, he quit in 2012. MEDICATIONS: 1. Seroquel 25 mg b.i.d. 2. DuoNeb p.r.n. 3. Sliding scale insulin. 4. Reglan 10 mg IV q8 hours. 5. Prednisone 20 mg p.o. b.i.d. 6. Labetalol 10 mg IV q4 hours p.r.n. 7. Colace 100 mg p.o. b.i.d. 8. Furosemide 40 mg daily. 9. Bisacodyl p.r.n. 10. Lisinopril 2.5 mg p.o. daily. 11. Carvedilol 6.25 mg p.o. q12 hours. 12. Cardizem 30 mg p.o. q.i.d. ALLERGIES: PENICILLIN. VITAL SIGNS: Blood pressure is 140/62, pulse is in the 70s, temperature 97, O2 saturation is 100% on 2 liters of nasal cannula. GENERAL: The patient is quite sleepy and it was difficult to awaken him. He did open his eyes, but then went back to sleep. He did not answer any of my questions. HEENT: Pupils are equal, round and reactive to light. EOMI. No oral thrush. No oral lesions. NECK: Is supple. No JVD. No bruits. No lymphadenopathy. CHEST: Is clear to auscultation bilaterally. CARDIAC: S1, S2. Regular rate and rhythm. ABDOMEN: Is soft, nontender, nondistended. Bowel sounds are present. EXTREMITIES: Without any edema, erythema or cyanosis. SKIN: Without any petechiae, lesions, or bruises. NEUROLOGIC: Patient is quite drowsy. PSYCHIATRIC: Unable to be assessed. LABORATORIES: WBC 15.5, hemoglobin 14, platelet count 84,000. Serum chemistries: Sodium 139, potassium 4.4, chloride 97, BUN is 40, creatinine is 0.72, GFR is 130, calcium is 8.5. Magnesium is 2.4. ASSESSMENT AND PLAN: This is a 72-year-old male who has multiple medical problems who has had a complicated hospital course. He had acute respiratory failure with congestive heart failure exacerbation, small bowel obstruction and developed hemoptysis while on heparin. The hemoptysis has resolved. He is now becoming progressively thrombocytopenic. Hematology has been recommended to make further recommendations. 1. Acute thrombocytopenia, likely due to recent illness: Likely etiology is a consumptive one. There is [id number] probability of heparin-induced thrombocytopenia. I would recommend obtaining a heparin-induced thrombocytopenia antibody panel. I do not believe we need to anticoagulate him with argatroban at this time. We can potentially anticoagulate him with Arixtra. He does have bilateral lower extremity deep venous thromboses and he is nonambulatory, thus, there is a high risk of thrombus expansion/dislodging of thrombus, resulting in pulmonary embolism. We will closely monitor his platelet counts. If they continue to drop, then we will have to stop Arixtra. My threshold for stopping anticoagulation would be a platelet count of less than 50,000. We will obtain a disseminated intravascular coagulation panel. Will check lactate dehydrogenase and haptoglobin. Will obtain a hepatitis panel. It is unclear what his baseline platelet count is. 2. Leukocytosis, likely reactive. 3. Recent respiratory failure with congestive heart failure exacerbation. 4. History of chronic obstructive pulmonary disease, chronically on oxygen. 5. History of atrial fibrillation. Thank you for allowing me to participate in the care of this patient. I will continue to follow this patient along. MD YOVANI Tariq/ELODIA , 01:11 AM , 02:05 AM MARGOT
[2017-06-04 05:26] LABS: BICARBONATE 32.6 MEQ/L (21.0-32.0); CALCIUM 8.4 MG/DL (8.5-10.1); CREATININE 0.63 MG/DL (0.60-1.30)
[2017-06-04] MEDS: INSULIN ASPART SUPPLEMENTAL SCALE SQ SCH ×4 (08:00→21:00)
[2017-06-04] MEDS: CHLORHEXIDINE 0.12% (ORAL KIT) 15 ML CUP MT SCH ×2 (08:00→20:00)
[2017-06-04] MEDS: RESP: ALBUTEROL 2.5 MG/IPRATROPIUM 0.5 MG NEB (SCH) INH ×3 (08:37→20:02)
[2017-06-04] MEDS: SODIUM CHLORIDE 0.9% FLUSH 10 ML FLUSH IV FLUSH SCH ×2 (08:44→21:00)
[2017-06-04] MEDS: DOCUSATE SODIUM 100 MG/10 ML UDC PO SCH ×2 (08:44→21:00)
[2017-06-04] MEDS: FUROSEMIDE 40 MG/4 ML VIAL IV PUSH SCH (08:48)
[2017-06-04] MEDS: LISINOPRIL 5 MG TAB PO SCH (08:49)
[2017-06-04] MEDS: QUEtiapine FUMARATE 25 MG TAB PO SCH ×2 (08:49→21:00)
[2017-06-04] MEDS: predniSONE 20 MG TAB PO SCH ×2 (08:50→21:00)
[2017-06-04] MEDS: CARVEDILOL 6.25 MG TAB PO SCH ×2 (08:50→21:00)
[2017-06-04] MEDS: DILTIAZEM HCL 30 MG TAB PO SCH ×4 (08:50→21:00)
[2017-06-04] MEDS: BISACODYL 10 MG SUPP RECTAL SCH (08:51)
[2017-06-04] MEDS: COLLAGENASE OINT 30 GM TUBE TOPICAL SCH (08:56)
[2017-06-04] MEDS: FONDAPARINUX SODIUM 7.5 MG/0.6 ML SYRINGE SQ SCH (09:03)
--- NOTE | 2017-06-04 12:43 | PD.ONC.PN ---
Subjective Subjective Remarks Afebrile overnight. patient resting in bed. doesn't seem to be interested in conversation. He pulls his blanket over his head when I ask him how he is feeling. Objective Data Date Time Temp Pulse Resp B/P (MAP) Pulse Ox O2 Delivery O2 Flow Rate FiO2 06/04/17 09:07 98.4 79 16 139/71 (93) 98 06/04/17 09:00 98 Nasal Cannula 2.00 40 06/04/17 08:38 97 Nasal Cannula 2.00 06/04/17 04:00 98.7 71 17 140/84 (102) 97 06/04/17 00:27 Nasal Cannula 2.00 06/04/17 00:00 98.6 75 20 122/64 (83) 96 06/03/17 20:00 98.9 71 14 136/74 (94) 98 06/03/17 16:00 97.0 76 16 140/62 (88) 100 06/03/17 16:00 100 2.00 06/03/17 14:18 80 06/04/17 06/04/17 06/04/17 07:00 15:00 23:00 Intake Total 240 ml Output Total 500 ml Balance -260 ml Result Diagram: 06/03/17 0500 06/04/17 0432 Laboratory Results Laboratory Tests Test 06/04/17 04:23 06/04/17 04:32 Haptoglobin 19 MG/DL Fibrinogen 125 mg/dL Blood Urea Nitrogen 20 MG/DL Creatinine 0.63 MG/DL Random Glucose 138 MG/DL Calcium Level 8.4 MG/DL Lactate Dehydrogenase 369 U/L Sodium Level 142 MEQ/L Potassium Level 3.4 MEQ/L Chloride Level 102 MEQ/L Carbon Dioxide Level 32.6 MEQ/L Anion Gap 7 MEQ/L Estimat Glomerular Filtration Rate 151 ML/MIN Hepatitis B Surface Antigen NONREACTIVE Hepatitis B Core IgM Antibody NONREACTIVE Administered Medications Medications (Trade) Dose Ordered Sig/Deacon Route PRN Reason Start Time Stop Time Status Last Admin Dose Admin Sodium Chloride (NS Flush) 2 ml UNSCH PRN IV FLUSH FLUSH AFTER USING IV ACCESS 05/13/17 13:15 05/28/17 05:08 Sodium Chloride (NS Flush) 2 ml BID IV FLUSH 05/13/17 21:00 06/04/17 08:44 Ondansetron HCl (Zofran Inj) 4 mg Q6HR PRN IV PUSH nausea 05/13/17 13:15 05/28/17 10:36 Carvedilol (Coreg) 6.25 mg Q12HR PO 05/14/17 21:00 Future hold 06/04/17 08:50 Collagenase (Santyl Oint) 1 applic DAILY TOPICAL 05/15/17 09:00 06/04/17 08:56 Diltiazem HCl (Cardizem) 30 mg QID PO 05/14/17 18:00 Future hold 06/04/17 08:50 Lisinopril (Prinivil) 2.5 mg DAILY PO 05/15/17 09:00 Future hold 06/04/17 08:49 Albuterol/ Ipratropium (Duoneb Neb) 1 ampule Q2HR NEB PRN NEB dyspnea 05/14/17 15:45 05/28/17 11:08 Miscellaneous (Pill Splitter) 1 ea UNSCH PRN OTHER SEE LABEL COMMENTS 05/14/17 16:00 05/29/17 09:10 Bisacodyl (Dulcolax Supp) 10 mg DAILY RECTAL 05/16/17 09:00 06/04/17 08:51 Magnesium Hydroxide (Milk Of Magnesia Liq) 30 ml QID PRN PO CONSTIPATION 05/17/17 16:30 05/19/17 05:22 Chlorhexidine Gluconate (Peridex 0.12% Liq) 15 ml BID@08,20 MT 05/20/17 20:00 06/01/17 20:00 Furosemide (Lasix Inj) 40 mg DAILY IV PUSH 05/22/17 13:30 06/04/17 08:48 Docusate Sodium (Colace Liq) 100 mg BID PO 05/24/17 09:00 06/04/17 08:44 Prednisone (Deltasone) 20 mg BID PO 05/29/17 21:00 06/04/17 08:50 Insulin Aspart (NovoLOG SUPPLEMENTAL SCALE) 1 ACHS SLIDING SCALE SQ 05/30/17 17:00 06/03/17 12:41 Albuterol/ Ipratropium (Duoneb Neb) 1 ampule TID NEB INH 05/31/17 20:00 06/04/17 08:37 Quetiapine Fumarate (SEROquel) 25 mg BID PO 06/01/17 13:45 06/04/17 08:49 Fondaparinux (Arixtra Inj) 7.5 mg Q24H SQ 06/04/17 09:00 06/04/17 09:03 Objective Remarks GENERAL: Elderly male, lying in bed, resting. SKIN: Warm and dry. HEAD: Normocephalic. EYES: No injection or drainage. NECK: Supple, trachea midline. CARDIOVASCULAR: +S1/S2 RESPIRATORY: Breath sounds equal bilaterally. No accessory muscle use. GASTROINTESTINAL: Abdomen soft, non-tender, nondistended. EXTREMITIES: No cyanosis, or edema. MUSCULOSKELETAL: Adequate muscle tone. NEUROLOGICAL: awake and alert. normal speech. Assessment/Plan Problem List: (1) Thrombocytopenia ICD Codes: D69.6 - Thrombocytopenia, unspecified Plan: -- likely due to recent illness: a consumptive process is the favored etiology --HIT pending. --started on Arixtra on 06/04 for bilateral LE DVT + non-ambulatory status. --My threshold for stopping anticoagulation would be a platelet count of less than 50,000. --haptoglobin low, LDH elevated, consistent with hemolysis, hemoglobin, however remains normal. --fibrinogen low at 125. --hepatitis panel pending. (2) Leukocytosis ICD Codes: D72.829 - Elevated white blood cell count, unspecified Plan: --likely reactive. (3) History of DVT (deep vein thrombosis) ICD Codes: Z86.718 - Personal history of other venous thrombosis and embolism Status: Acute (4) Atrial fibrillation ICD Codes: I48.91 - Unspecified atrial fibrillation Status: Chronic (5) COPD (chronic obstructive pulmonary disease) ICD Codes: J44.9 - Chronic obstructive pulmonary disease, unspecified Assessment 72y/o male with thrombocytopenia and history of bilateral lower extremity DVT. h/o COPD on chronic supplemental oxygen fibrillation, AFib on Coumadin, chronic systolic CHF with EF of 20%, bilateral lower extremity DVT, hypertension. Plan 1. continue Arixtra 2. monitor platelets 3. monitor hgb. Attending Statement The exam, history, and the medical decision-making described in the above note were completed with the assistance of the mid-level provider. I reviewed and agree with the findings presented. I attest that I had a [id number] encounter with the patient on the same day, and personally performed and documented my assessment and findings in the medical record. more awake and alert today says that he had low blood counts before still poor historian PLT count up - continue Arixtra for anticoagulation f/u HIT antibody panel Will be a poor candidate for oral anticoagulation will need at least 3-6 months of anti-coagulation for recent b/l le DVT Susu Dyson Jun 04, 2017 12:43 Aidan Cuevas MD Jun 04, 2017 23:11
[2017-06-04 14:02] LABS: HEPARIN INDUCED PLATELET AB NEGATIVE (NEGATIVE)
[2017-06-04 15:03] LABS: AUTOMATED NEUTROPHIL # 14.6 TH/MM3 (1.8-7.7); BASOPHIL % 0.1 % (0.0-2.0); EOSINOPHIL % 0.1 % (0.0-4.0); HEMATOCRIT 41.4 % (39.0-51.0); HEMOGLOBIN 13.9 GM/DL (13.0-17.0); LYMPH % 2.1 % (9.0-44.0); LYMPHOCYTE # 0.3 TH/MM3 (1.0-4.8); MEAN CELL VOLUME 88.3 FL (80.0-100.0); MEAN CORPUSCULAR HEMOGLOBIN 29.6 PG (27.0-34.0); MEAN CORPUSCULAR HGB CONC 33.5 % (32.0-36.0); MEAN PLATELET VOLUME 9.1 FL (7.0-11.0); MONO % 2.2 % (0.0-8.0); MONOCYTE # 0.3 TH/MM3 (0-0.9); NEUT % 95.5 % (16.0-70.0); RED BLOOD COUNT 4.69 MIL/MM3 (4.50-5.90); RED CELL DISTRIBUTION WIDTH 17.1 % (11.6-17.2)
[2017-06-04 15:19] LABS: PLATELET COUNT 106 TH/MM3 (150-450); WHITE BLOOD COUNT 15.3 TH/MM3 (4.0-11.0)
--- NOTE | 2017-06-04 16:03 | HHI.PR ---
Subjective Remarks , NO DISTRESS ON O2 N/C Objective Vital Signs Date Time Temp Pulse Resp B/P (MAP) Pulse Ox O2 Delivery O2 Flow Rate FiO2 06/04/17 12:00 97.7 73 18 91/55 (67) 93 113/62 (79) 06/04/17 09:07 98.4 79 16 139/71 (93) 98 06/04/17 09:00 98 Nasal Cannula 2.00 40 06/04/17 08:38 97 Nasal Cannula 2.00 06/04/17 04:00 98.7 71 17 140/84 (102) 97 06/04/17 00:27 Nasal Cannula 2.00 06/04/17 00:00 98.6 75 20 122/64 (83) 96 06/03/17 20:00 98.9 71 14 136/74 (94) 98 I/O 06/03/17 06/03/17 06/03/17 06/04/17 06/04/17 06/04/17 07:00 15:00 23:00 07:00 15:00 23:00 Intake Total 240 ml 360 ml 240 ml Output Total 500 ml Balance 240 ml 360 ml -260 ml Intake Oral 240 ml 360 ml 240 ml Output Urine Total 500 ml # Voids 2 3 # Bowel Movements 1 Result Diagram: 06/04/17 1422 06/04/17 0432 Objective Remarks GENERAL: sedated on ventilator SKIN: Warm and dry. HEAD: Atraumatic. Normocephalic. EYES: Pupils equal and round. No scleral icterus. No injection or drainage. ENT: No nasal bleeding or discharge. Mucous membranes pink and moist. NECK: Trachea midline. No JVD. CARDIOVASCULAR: Regular rate and rhythm. RESPIRATORY: No accessory muscle use. Clear to auscultation. Breath sounds equal bilaterally. GASTROINTESTINAL: Abdomen soft, non-tender, nondistended. Hepatic and splenic margins not palpable. MUSCULOSKELETAL: Extremities without clubbing, cyanosis, or edema. No obvious deformities. NEUROLOGICAL: Awake and alert. No obvious cranial nerve deficits. Motor grossly within normal limits. Five out of 5 muscle strength in the arms and legs. Normal speech. PSYCHIATRIC: Appropriate mood and affect; insight and judgment normal. Assessment and Plan Assessment and Plan assessment respiratory failure NOW ON N/C COPD CHF PLAN O2 NEEDED NEB ALBUTEROL increase activity WILL SIGN OFF SEE Tania Can MD Jun 04, 2017 16:03
--- NOTE | 2017-06-04 17:36 | HHI.PR ---
Subjective Remarks Follow-up respiratory failure, COPD, CHF. The patient has no complaints at this time. He denies shortness of breath. Per nursing, his blood pressure has been running borderline low. He has been sleeping a lot today, but otherwise asymptomatic. Objective Vitals Vital Signs Date Time Temp Pulse Resp B/P (MAP) Pulse Ox O2 Delivery O2 Flow Rate FiO2 06/04/17 16:00 96.2 78 18 102/63 (76) 93 06/04/17 12:00 97.7 73 18 91/55 (67) 93 113/62 (79) 06/04/17 09:07 98.4 79 16 139/71 (93) 98 06/04/17 09:00 98 Nasal Cannula 2.00 40 06/04/17 08:38 97 Nasal Cannula 2.00 06/04/17 04:00 98.7 71 17 140/84 (102) 97 06/04/17 00:27 Nasal Cannula 2.00 06/04/17 00:00 98.6 75 20 122/64 (83) 96 06/03/17 20:00 98.9 71 14 136/74 (94) 98 I/O 06/03/17 06/03/17 06/03/17 06/04/17 06/04/17 06/04/17 07:00 15:00 23:00 07:00 15:00 23:00 Intake Total 240 ml 360 ml 240 ml Output Total 500 ml Balance 240 ml 360 ml -260 ml Intake Oral 240 ml 360 ml 240 ml Output Urine Total 500 ml # Voids 2 3 # Bowel Movements 1 Result Diagram: 06/04/17 1422 06/04/17 0432 Imaging Last Impressions Chest X-Ray 05/26/17 0000 Signed Impressions: Service Date/Time: Friday, May 26, 2017 04:50 - CONCLUSION: Unchanged patchy parenchymal consolidations. Luis Marmolejo Jr., MD Abdomen X-Ray 05/22/17 0600 Signed Impressions: Service Date/Time: May 10:04 - CONCLUSION: The previously noted dilated small bowel have resolved. NG tube in the stomach. Jeff Foster MD Small Bowel X-Ray 05/14/17 0000 Signed Impressions: Service Date/Time: Sunday, May 14, 2017 11:20 - CONCLUSION: 1. Findings consistent with CT examination and suggestive of high grade obstruction in the distal jejunum/proximal ileum. Kwaku Vences MD Abdomen/Pelvis CT 05/13/17 1005 Signed Impressions: Service Date/Time: Saturday, May 13, 2017 11:36 - CONCLUSION: 1. Mid to distal jejunal small bowel ileus with acute transition characteristic of high grade small bowel obstruction. 2. Uncomplicated colonic diverticulosis. 3. Mild ascites. 4. Uncomplicated colonic diverticulosis. Conor John MD Objective Remarks General: No acute distress. Heart: Regular rate and rhythm. No murmur. Lungs: Clear to auscultation bilaterally. No wheezes, rales, or rhonchi. Breathing is nonlabored. Abdomen: Soft, nontender, nondistended. Extremities: Trace bilateral lower extremity edema. SCDs. Psych: Sleeping, but awakens easily. Follows commands. Somewhat confused. Procedures 05/20/17 intubation 05/21/17 central line placement, right subclavian Urinary Catheter: No Vascular Central Line Catheter: No A/P Assessment and Plan 1. Acute hypoxemic respiratory failure: Improved. Patient was intubated on 05/20 and extubated on 05/27/17. Now tolerating oxygen per nasal cannula. Appreciate pulmonology recommendations. Continue prednisone, bronchodilators. 2. Chronic systolic congestive heart failure with exacerbation: Continue IV Lasix. Continue lisinopril. Decrease dose of Coreg due to hypotension. Switch to long-acting Cardizem. Aldactone on hold for relative hypotension. 3. Atrial fibrillation: Continue diltiazem. 4. Hemoptysis: Resolved. Appreciate pulmonology recommendations. H&H are stable. 5. Small bowel obstruction: General surgery has signed off. Continue pured diet per speech therapy. Continue bowel regimen. 6. Diabetes mellitus: Monitor Accu-Cheks and cover with sliding scale insulin. 7. Agitation: Likely secondary to delirium. Ativan for severe symptoms. Continue Seroquel twice daily. 8. Thrombocytopenia: Platelets are a little better today. The patient was on heparin drip, but that was discontinued on 05/22/17. Appreciate hematology recommendations. 9. DVT prophylaxis: SCDs. Anticoagulation on hold secondary to hemoptysis. Jair Christina MD Jun 04, 2017 17:36
[2017-06-04] MEDS ORDERED: POTASSIUM CHLORIDE 10 MEQ CONTROLLED RELEASE TAB PO ONE (17:45)
[2017-06-05] VITALS (7 sets, daily range): BP systolic 97–139; BP diastolic 63–91; PULSE 70–115; RESP 16–20; TEMP 96.5–98.1; O2SAT 92–99
[2017-06-05 07:58] LABS: AUTOMATED NEUTROPHIL # 12.7 TH/MM3 (1.8-7.7); BASOPHIL % 0.2 % (0.0-2.0); EOSINOPHIL # 0.3 TH/MM3 (0-0.4); EOSINOPHIL % 1.8 % (0.0-4.0); HEMATOCRIT 39.5 % (39.0-51.0); LYMPH % 13.2 % (9.0-44.0); LYMPHOCYTE # 2.1 TH/MM3 (1.0-4.8); MEAN CELL VOLUME 89.8 FL (80.0-100.0); MEAN CORPUSCULAR HEMOGLOBIN 29.6 PG (27.0-34.0); MEAN PLATELET VOLUME 9.4 FL (7.0-11.0); MONOCYTE # 0.6 TH/MM3 (0-0.9); NEUT % 80.8 % (16.0-70.0); RED BLOOD COUNT 4.39 MIL/MM3 (4.50-5.90); RED CELL DISTRIBUTION WIDTH 17.3 % (11.6-17.2)
[2017-06-05] MEDS: CHLORHEXIDINE 0.12% (ORAL KIT) 15 ML CUP MT SCH ×2 (08:00→20:00)
[2017-06-05] MEDS: RESP: ALBUTEROL 2.5 MG/IPRATROPIUM 0.5 MG NEB (SCH) INH ×3 (08:00→20:00)
[2017-06-05] MEDS: INSULIN ASPART SUPPLEMENTAL SCALE SQ SCH ×4 (08:00→21:42)
[2017-06-05 08:07] LABS: INTERNATIONAL NORMALIZED RATIO 1.2 RATIO
[2017-06-05 08:21] LABS: BICARBONATE 30.6 MEQ/L (21.0-32.0); CALCIUM 8.2 MG/DL (8.5-10.1); CREATININE 0.65 MG/DL (0.60-1.30); PLATELET COUNT 105 TH/MM3 (150-450); WHITE BLOOD COUNT 14.5 TH/MM3 (4.0-11.0)
[2017-06-05] MEDS: FONDAPARINUX SODIUM 7.5 MG/0.6 ML SYRINGE SQ SCH (09:00)
[2017-06-05 09:09] LABS: BANDS 5 % (0-6); LYMPHOCYTES 11 % (9-44); MONOCYTES 7 % (0-8); NEUTROPHIL # MANUAL DIFF 11.9 TH/MM3 (1.8-7.7); POLYS (SEG NEUTROPHILS) 77 % (16-70)
[2017-06-05 09:10] LABS: TARGET CELLS 1+ (NORMAL)
[2017-06-05] MEDS: DILTIAZEM-CD 120 MG CAP ER PO SCH (11:30)
[2017-06-05] MEDS: DOCUSATE SODIUM 100 MG/10 ML UDC PO SCH ×2 (11:31→21:00)
[2017-06-05] MEDS: FUROSEMIDE 40 MG/4 ML VIAL IV PUSH SCH (11:31)
[2017-06-05] MEDS: QUEtiapine FUMARATE 25 MG TAB PO SCH ×2 (11:32→21:42)
[2017-06-05] MEDS: CARVEDILOL 6.25 MG TAB PO SCH ×2 (11:32→21:42)
[2017-06-05] MEDS: predniSONE 20 MG TAB PO SCH ×2 (11:33→21:42)
[2017-06-05] MEDS: LISINOPRIL 5 MG TAB PO SCH (11:34)
[2017-06-05] MEDS: SODIUM CHLORIDE 0.9% FLUSH 10 ML FLUSH IV FLUSH SCH ×2 (11:34→21:39)
[2017-06-05] MEDS: COLLAGENASE OINT 30 GM TUBE TOPICAL SCH (11:35)
[2017-06-05] MEDS: BISACODYL 10 MG SUPP RECTAL SCH (11:35)
[2017-06-05] MEDS: MAGNESIUM HYDROXIDE SUSP 30 ML CUP PO PRN (12:40)
--- NOTE | 2017-06-05 14:15 | HHI.PR ---
Subjective Remarks Follow up respiratory failure, CHF, diabetes. Patient states that he feels " weak and tired". No chest pain or dyspnea. No nausea/vomiting. Objective Vitals Vital Signs Date Time Temp Pulse Resp B/P (MAP) Pulse Ox O2 Delivery O2 Flow Rate FiO2 06/05/17 12:00 96.7 88 18 112/80 (91) 95 06/05/17 08:00 96.6 84 18 124/81 (95) 92 06/05/17 04:00 98.1 70 16 119/77 (91) 97 06/05/17 00:00 96.8 115 17 139/91 (107) 97 06/04/17 20:05 97 Nasal Cannula 2.00 06/04/17 16:00 96.2 78 18 102/63 (76) 93 I/O 06/04/17 06/04/17 06/04/17 06/05/17 06/05/17 06/05/17 07:00 15:00 23:00 07:00 15:00 23:00 Intake Total 240 ml 940 ml Output Total 500 ml 600 ml 600 ml Balance -260 ml 340 ml -600 ml Intake Oral 240 ml 940 ml Output Urine Total 500 ml 600 ml 600 ml # Voids 1 # Bowel Movements 1 Result Diagram: 06/05/17 0613 06/05/17 0613 Imaging Last Impressions Chest X-Ray 05/26/17 0000 Signed Impressions: Service Date/Time: Friday, May 26, 2017 04:50 - CONCLUSION: Unchanged patchy parenchymal consolidations. Luis Marmolejo Jr., MD Abdomen X-Ray 05/22/17 0600 Signed Impressions: Service Date/Time: May 10:04 - CONCLUSION: The previously noted dilated small bowel have resolved. NG tube in the stomach. Jeff Foster MD Small Bowel X-Ray 05/14/17 0000 Signed Impressions: Service Date/Time: Sunday, May 14, 2017 11:20 - CONCLUSION: 1. Findings consistent with CT examination and suggestive of high grade obstruction in the distal jejunum/proximal ileum. Kwaku Vences MD Abdomen/Pelvis CT 05/13/17 1005 Signed Impressions: Service Date/Time: Saturday, May 13, 2017 11:36 - CONCLUSION: 1. Mid to distal jejunal small bowel ileus with acute transition characteristic of high grade small bowel obstruction. 2. Uncomplicated colonic diverticulosis. 3. Mild ascites. 4. Uncomplicated colonic diverticulosis. Conor John MD Objective Remarks General: No acute distress. Heart: Regular rate and rhythm. No murmur. Lungs: Clear to auscultation bilaterally. No wheezes, rales, or rhonchi. Breathing is nonlabored. Abdomen: Soft, nontender, nondistended. Extremities: Trace bilateral lower extremity edema. SCDs. Psych: Alert, confused. Oriented to city, but not [place]. Oriented to year, but not month (says June). Procedures 05/20/17 intubation 05/21/17 central line placement, right subclavian Urinary Catheter: No Vascular Central Line Catheter: No A/P Assessment and Plan 1. Acute hypoxemic respiratory failure: Improved. Patient was intubated on 05/20 and extubated on 05/27/17. Now tolerating oxygen per nasal cannula. Pulmonology signed off. Continue prednisone, bronchodilators. 2. Chronic systolic congestive heart failure with exacerbation: Continue Lasix , switch to oral. Continue lisinopril. Continue Coreg, long-acting Cardizem. Aldactone on hold for relative hypotension. 3. Atrial fibrillation: Continue diltiazem. 4. Hemoptysis: Resolved. Appreciate pulmonology recommendations. H&H are stable. 5. Small bowel obstruction: General surgery has signed off. Continue pured diet per speech therapy. Continue bowel regimen. 6. Diabetes mellitus: Monitor Accu-Cheks and cover with sliding scale insulin. 7. Agitation: Likely secondary to delirium. Ativan for severe symptoms. Continue Seroquel twice daily. 8. Thrombocytopenia: Platelets are a little better today. The patient was on heparin drip, but that was discontinued on 05/22/17. Appreciate hematology recommendations. 9. DVT prophylaxis: SCDs. Anticoagulation on hold secondary to hemoptysis. 10. Hypokalemia: Supplement potassium and recheck labs in the morning. 11. Weakness: Continue physical therapy. Clarification of previous documentation: Patient had community acquired pneumonia present on admission (seen on multiple X-rays). He was treated with antibiotics (initially Azithromycin/Rocephin, then Azactam, then Levaquin). Discharge Planning Patient needs SNF/rehab at discharge, but is refusing. Not safe for discharge home at this time. Case management assisting with discharge planning. Jair Christina MD Jun 05, 2017 14:15
[2017-06-05] MEDS: POTASSIUM CHLORIDE 20 MEQ CONTROLLED RELEASE TAB PO SCH ×2 (14:45→21:42)
[2017-06-06] VITALS (8 sets, daily range): BP systolic 107–133; BP diastolic 58–78; PULSE 67–80; RESP 16–20; TEMP 96.2–98.6; O2SAT 92–96
[2017-06-06 05:03] LABS: AUTOMATED NEUTROPHIL # 12.8 TH/MM3 (1.8-7.7); BASOPHIL % 0.1 % (0.0-2.0); EOSINOPHIL % 0.1 % (0.0-4.0); HEMATOCRIT 38.2 % (39.0-51.0); HEMOGLOBIN 12.7 GM/DL (13.0-17.0); LYMPH % 3.1 % (9.0-44.0); LYMPHOCYTE # 0.4 TH/MM3 (1.0-4.8); MEAN CELL VOLUME 89.6 FL (80.0-100.0); MEAN CORPUSCULAR HEMOGLOBIN 29.8 PG (27.0-34.0); MEAN CORPUSCULAR HGB CONC 33.3 % (32.0-36.0); MEAN PLATELET VOLUME 9.2 FL (7.0-11.0); MONO % 2.2 % (0.0-8.0); MONOCYTE # 0.3 TH/MM3 (0-0.9); NEUT % 94.5 % (16.0-70.0); RED BLOOD COUNT 4.26 MIL/MM3 (4.50-5.90); RED CELL DISTRIBUTION WIDTH 17.4 % (11.6-17.2); WHITE BLOOD COUNT 13.6 TH/MM3 (4.0-11.0)
[2017-06-06 05:30] LABS: BICARBONATE 30.9 MEQ/L (21.0-32.0); CALCIUM 8.1 MG/DL (8.5-10.1); CREATININE 0.66 MG/DL (0.60-1.30); INTERNATIONAL NORMALIZED RATIO 1.1 RATIO; MAGNESIUM 1.9 MG/DL (1.5-2.5); PROTHROMBIN TIME - PATIENT 11.5 SEC (9.8-11.6)
[2017-06-06 05:43] LABS: PLATELET COUNT 114 TH/MM3 (150-450)
[2017-06-06 06:59] LABS: TARGET CELLS 1+ (NORMAL)
[2017-06-06] MEDS: INSULIN ASPART SUPPLEMENTAL SCALE SQ SCH ×4 (08:00→21:00)
[2017-06-06] MEDS: CHLORHEXIDINE 0.12% (ORAL KIT) 15 ML CUP MT SCH ×2 (08:00→20:00)
[2017-06-06] MEDS: DILTIAZEM-CD 120 MG CAP ER PO SCH (08:34)
[2017-06-06] MEDS: COLLAGENASE OINT 30 GM TUBE TOPICAL SCH (08:34)
[2017-06-06] MEDS: predniSONE 20 MG TAB PO SCH ×2 (08:34→21:18)
[2017-06-06] MEDS: LISINOPRIL 5 MG TAB PO SCH (08:34)
[2017-06-06] MEDS: POTASSIUM CHLORIDE 20 MEQ CONTROLLED RELEASE TAB PO SCH ×2 (08:34→21:18)
[2017-06-06] MEDS: DOCUSATE SODIUM 100 MG/10 ML UDC PO SCH ×2 (08:34→21:17)
[2017-06-06] MEDS: CARVEDILOL 6.25 MG TAB PO SCH ×2 (08:35→21:18)
[2017-06-06] MEDS: BISACODYL 10 MG SUPP RECTAL SCH (08:35)
[2017-06-06] MEDS: FONDAPARINUX SODIUM 7.5 MG/0.6 ML SYRINGE SQ SCH (08:35)
[2017-06-06] MEDS: SODIUM CHLORIDE 0.9% FLUSH 10 ML FLUSH IV FLUSH SCH ×2 (08:35→21:18)
[2017-06-06] MEDS: FUROSEMIDE 40 MG TAB PO SCH (08:35)
[2017-06-06] MEDS: QUEtiapine FUMARATE 25 MG TAB PO SCH ×2 (08:35→21:18)
[2017-06-06] MEDS: RESP: ALBUTEROL 2.5 MG/IPRATROPIUM 0.5 MG NEB (SCH) INH ×3 (09:35→21:51)
--- NOTE | 2017-06-06 15:29 | HHI.PR ---
Subjective Remarks Follow up respiratory failure, generalized weakness. The patient states that he is weak and needs to get stronger so he can walk better and go home. Denies dyspnea, chest pain. Objective Vitals Vital Signs Date Time Temp Pulse Resp B/P (MAP) Pulse Ox O2 Delivery O2 Flow Rate FiO2 06/06/17 14:09 92 Nasal Cannula 2.00 06/06/17 12:00 98.1 67 18 133/66 (88) 93 06/06/17 08:00 97.0 74 19 119/72 (88) 93 06/06/17 04:00 98.4 80 19 119/60 (79) 95 06/06/17 00:00 96.5 76 17 110/58 (75) 95 06/05/17 21:33 96.5 85 18 98/63 (75) 98 06/05/17 20:11 95 Nasal Cannula 2.00 06/05/17 19:45 Nasal Cannula 2.00 06/05/17 16:00 96.9 73 18 97/66 (76) 95 I/O 06/05/17 06/05/17 06/05/17 06/06/17 06/06/17 06/06/17 07:00 15:00 23:00 07:00 15:00 23:00 Intake Total 960 ml Output Total 600 ml 1300 ml 600 ml Balance -600 ml -340 ml -600 ml Intake Oral 960 ml Output Urine Total 600 ml 1300 ml 600 ml # Bowel Movements 1 Result Diagram: 06/06/17 0410 06/06/17 0410 Imaging Last Impressions Chest X-Ray 05/26/17 0000 Signed Impressions: Service Date/Time: Friday, May 26, 2017 04:50 - CONCLUSION: Unchanged patchy parenchymal consolidations. Luis Marmolejo Jr., MD Abdomen X-Ray 05/22/17 0600 Signed Impressions: Service Date/Time: May 10:04 - CONCLUSION: The previously noted dilated small bowel have resolved. NG tube in the stomach. Jeff Foster MD Small Bowel X-Ray 05/14/17 0000 Signed Impressions: Service Date/Time: Sunday, May 14, 2017 11:20 - CONCLUSION: 1. Findings consistent with CT examination and suggestive of high grade obstruction in the distal jejunum/proximal ileum. Kwaku Vences MD Abdomen/Pelvis CT 05/13/17 1005 Signed Impressions: Service Date/Time: Saturday, May 13, 2017 11:36 - CONCLUSION: 1. Mid to distal jejunal small bowel ileus with acute transition characteristic of high grade small bowel obstruction. 2. Uncomplicated colonic diverticulosis. 3. Mild ascites. 4. Uncomplicated colonic diverticulosis. Conor John MD Objective Remarks General: No acute distress. Heart: Regular rate and rhythm. No murmur. Lungs: Clear to auscultation bilaterally. No wheezes, rales, or rhonchi. Breathing is nonlabored. Abdomen: Soft, nontender, nondistended. Extremities: Trace bilateral lower extremity edema. SCDs. Psych: Alert, somewhat confused. Oriented to [place]. Oriented to year, but not month. Procedures 05/20/17 intubation 05/21/17 central line placement, right subclavian Urinary Catheter: No Vascular Central Line Catheter: No A/P Assessment and Plan 1. Acute hypoxemic respiratory failure: Improved. Patient was intubated on 05/20 and extubated on 05/27/17. Now tolerating oxygen per nasal cannula. Pulmonology signed off. Continue prednisone, bronchodilators. 2. Chronic systolic congestive heart failure with exacerbation: Continue Lasix , lisinopril, Coreg, long-acting Cardizem. Aldactone on hold for relative hypotension. 3. Atrial fibrillation: Continue diltiazem. 4. Hemoptysis: Resolved. Appreciate pulmonology recommendations. H&H are stable. 5. Small bowel obstruction: General surgery has signed off. Continue pured diet per speech therapy. Continue bowel regimen. 6. Diabetes mellitus: Monitor Accu-Cheks and cover with sliding scale insulin. 7. Agitation: Likely secondary to delirium. Ativan for severe symptoms. Continue Seroquel twice daily. 8. Thrombocytopenia: Platelets are trending up. Heparin drip was discontinued on 05/22/17. Appreciate hematology recommendations. 9. DVT prophylaxis: SCDs. Anticoagulation on hold secondary to hemoptysis. 10. Hypokalemia: Supplement potassium and recheck labs in the morning. 11. Weakness: Continue physical therapy. 12. Community acquired pneumonia, present on admission: He was treated with antibiotics (initially Azithromycin/Rocephin, then Azactam, then Levaquin). Discharge Planning Patient needs SNF/rehab at discharge, but is refusing. Not safe for discharge home at this time. Case management assisting with discharge planning. Jair Christina MD Jun 06, 2017 15:29
--- NOTE | 2017-06-06 16:28 | HHI.HCPN ---
Reason for visit a. To assist with evaluation and management of symptoms including: Abdominal pain, shortness of breath, debility. b. To assist medical decision maker(s) with: better understanding of current medical conditions; weighing benefits/burdens of medical treatment options; making medical treatment decisions. . (Areli Dunaway) Subjective/Interval History Palliative care follow-up for further clarifications of goals of care. Patient medically extubated on 05/27, currently tolerating O2 via nasal cannula 2 L. He was seen in the medical floor. Denies shortness of breath, pain, nausea/ vomiting or abdominal discomfort. Laboratory workup today revealing WBC 13.6, Hgb 12.7, platelet count 114. BUN/creatinine 25/0.66. PT/OT following, recommending PT at rehab. However, patient refusing rehabilitation. Spoke with patient, he is requesting to be discharged home. Review with patient that given his intermittent confusion and debilitated state, independent living at home might not be safe at this time. Patient became irritable, upset. Verbalizing that he just wants to be home. Reintroduce hospice services given advanced cardiopulmonary disease. Patient declined hospice, reports that his mother "was killed by hospice". Patient verbalizing again that he just wants to be at home. Case discussed with bedside RN Maria Luz. . Family/friend interactions See interval note. . (Areli Dunaway) Advance Directives Health Care Surrogate: Copy in medical record (Areli Dunaway) Advance Directive Specifics Date completed: 05/15/2017. . Health Care Surrogate(s): cousin Kathie Saavedra listed as healthcare surrogate decision maker. Alternate surrogate is cammie Taylor. . Documented care wishes: Patient verbalized that in the event of being placed on life support, he would only allow 2 days and if no recovery, okay to "let him go" . Significant change in goals: Aggressive management short of no resuscitation. Patient refusing discharge to senior living facility for rehabilitation as recommended. . (Areli Dunaway) Objective Vital Signs Date Time Temp Pulse Resp B/P (MAP) Pulse Ox O2 Delivery O2 Flow Rate FiO2 06/06/17 14:09 92 Nasal Cannula 2.00 06/06/17 12:00 98.1 67 18 133/66 (88) 93 06/06/17 08:30 Nasal Cannula 2.00 06/06/17 08:00 97.0 74 19 119/72 (88) 93 06/06/17 04:00 98.4 80 19 119/60 (79) 95 06/06/17 00:00 96.5 76 17 110/58 (75) 95 06/05/17 21:33 96.5 85 18 98/63 (75) 98 06/05/17 20:11 95 Nasal Cannula 2.00 06/05/17 19:45 Nasal Cannula 2.00 Intake & Output 06/06/17 06/06/17 07:00 19:00 Output Total 600 ml Balance -600 ml Output Urine Total 600 ml Physical Exam CONSTITUTIONAL/GENERAL: This is an adequately nourished patient, in no apparent distress, intermittent irritability noted. TUBES/LINES/DRAINS: PIV, NC. SKIN: No jaundice, rashes. Skin warm/dry. Nonhealing sores to bilateral lower extremities. Dressing left lower extremity, dry and intact. CARDIOVASCULAR: Regular rate and rhythm. Peripheral pulses symmetric. Venous stasis to bilateral lower extremities. RESPIRATORY/CHEST: Symmetric, unlabored respirations on NC. Diminished breath sounds bilaterally- O2 via nasal cannula 2L GASTROINTESTINAL: Abdomen large, round, soft. Active bowel sounds. GENITOURINARY: Without palpable bladder distension. MUSCULOSKELETAL: Extremities without clubbing. No edema. NEUROLOGICAL: awake, oriented to self, place and situation. PSYCHIATRIC: Irritable, anxious. . (Areli Dunaway) Diagnostic Tests Laboratory Laboratory Tests Test 06/04/17 04:23 06/04/17 04:32 06/04/17 14:22 06/05/17 06:13 Heparin-Induced Platelet Ab ([place]) NEGATIVE (NEGATIVE) HIPA Patient Optical Density 0.218 O.D. (0.000-0.300) Haptoglobin 19 MG/DL (30-200) Fibrinogen 125 mg/dL (227-377) Blood Urea Nitrogen 20 MG/DL (7-18) 25 MG/DL (7-18) Creatinine 0.63 MG/DL (0.60-1.30) 0.65 MG/DL (0.60-1.30) Random Glucose 138 MG/DL (74-106) 92 MG/DL (74-106) Calcium Level 8.4 MG/DL (8.5-10.1) 8.2 MG/DL (8.5-10.1) Lactate Dehydrogenase 369 U/L (87-241) Sodium Level 142 MEQ/L (136-145) 139 MEQ/L (136-145) Potassium Level 3.4 MEQ/L (3.5-5.1) 3.2 MEQ/L (3.5-5.1) Chloride Level 102 MEQ/L (98-107) 100 MEQ/L (98-107) Carbon Dioxide Level 32.6 MEQ/L (21.0-32.0) 30.6 MEQ/L (21.0-32.0) Anion Gap 7 MEQ/L (5-15) 8 MEQ/L (5-15) Estimat Glomerular Filtration Rate 151 ML/MIN (>89) 146 ML/MIN (>89) Hepatitis B Surface Antigen NONREACTIVE (NONREACTIVE) NONREACTIVE (NONREACTIVE) Hepatitis B Core IgM Antibody NONREACTIVE (NONREACTIVE) NONREACTIVE (NONREACTIVE) White Blood Count 15.3 TH/MM3 (4.0-11.0) 14.5 TH/MM3 (4.0-11.0) Red Blood Count 4.69 MIL/MM3 (4.50-5.90) 4.39 MIL/MM3 (4.50-5.90) Hemoglobin 13.9 GM/DL (13.0-17.0) 13.0 GM/DL (13.0-17.0) Hematocrit 41.4 % (39.0-51.0) 39.5 % (39.0-51.0) Mean Corpuscular Volume 88.3 FL (80.0-100.0) 89.8 FL (80.0-100.0) Mean Corpuscular Hemoglobin 29.6 PG (27.0-34.0) 29.6 PG (27.0-34.0) Mean Corpuscular Hemoglobin Concent 33.5 % (32.0-36.0) 33.0 % (32.0-36.0) Red Cell Distribution Width 17.1 % (11.6-17.2) 17.3 % (11.6-17.2) Platelet Count 106 TH/MM3 (150-450) 105 TH/MM3 (150-450) Mean Platelet Volume 9.1 FL (7.0-11.0) 9.4 FL (7.0-11.0) Neutrophils (%) (Auto) 95.5 % (16.0-70.0) 80.8 % (16.0-70.0) Lymphocytes (%) (Auto) 2.1 % (9.0-44.0) 13.2 % (9.0-44.0) Monocytes (%) (Auto) 2.2 % (0.0-8.0) 4.0 % (0.0-8.0) Eosinophils (%) (Auto) 0.1 % (0.0-4.0) 1.8 % (0.0-4.0) Basophils (%) (Auto) 0.1 % (0.0-2.0) 0.2 % (0.0-2.0) Neutrophils # (Auto) 14.6 TH/MM3 (1.8-7.7) 12.7 TH/MM3 (1.8-7.7) Lymphocytes # (Auto) 0.3 TH/MM3 (1.0-4.8) 2.1 TH/MM3 (1.0-4.8) Monocytes # (Auto) 0.3 TH/MM3 (0-0.9) 0.6 TH/MM3 (0-0.9) Eosinophils # (Auto) 0.0 TH/MM3 (0-0.4) 0.3 TH/MM3 (0-0.4) Basophils # (Auto) 0.0 TH/MM3 (0-0.2) 0.0 TH/MM3 (0-0.2) CBC Comment AUTO DIFF AUTO DIFF Differential Comment AUTO DIFF CONFIRMED FINAL DIFF MANUAL Platelet Estimate LOW (NORMAL) LOW (NORMAL) Platelet Morphology Comment NORMAL (NORMAL) CLUMPED (NORMAL) Hepatitis A IgM Antibody NONREACTIVE (NONREACTIVE) Hepatitis C IgG Antibody NONREACTIVE (NONREACTIVE) Differential Total Cells Counted 100 Neutrophils % (Manual) 77 % (16-70) Band Neutrophils % 5 % (0-6) Lymphocytes % 11 % (9-44) Monocytes % 7 % (0-8) Neutrophils # (Manual) 11.9 TH/MM3 (1.8-7.7) Target Cells 1+ (NORMAL) Prothrombin Time 12.0 SEC (9.8-11.6) Prothromb Time International Ratio 1.2 RATIO Activated Partial Thromboplast Time 23.2 SEC (24.3-30.1) Test 06/06/17 04:10 White Blood Count 13.6 TH/MM3 (4.0-11.0) Red Blood Count 4.26 MIL/MM3 (4.50-5.90) Hemoglobin 12.7 GM/DL (13.0-17.0) Hematocrit 38.2 % (39.0-51.0) Mean Corpuscular Volume 89.6 FL (80.0-100.0) Mean Corpuscular Hemoglobin 29.8 PG (27.0-34.0) Mean Corpuscular Hemoglobin Concent 33.3 % (32.0-36.0) Red Cell Distribution Width 17.4 % (11.6-17.2) Platelet Count 114 TH/MM3 (150-450) Mean Platelet Volume 9.2 FL (7.0-11.0) Neutrophils (%) (Auto) 94.5 % (16.0-70.0) Lymphocytes (%) (Auto) 3.1 % (9.0-44.0) Monocytes (%) (Auto) 2.2 % (0.0-8.0) Eosinophils (%) (Auto) 0.1 % (0.0-4.0) Basophils (%) (Auto) 0.1 % (0.0-2.0) Neutrophils # (Auto) 12.8 TH/MM3 (1.8-7.7) Lymphocytes # (Auto) 0.4 TH/MM3 (1.0-4.8) Monocytes # (Auto) 0.3 TH/MM3 (0-0.9) Eosinophils # (Auto) 0.0 TH/MM3 (0-0.4) Basophils # (Auto) 0.0 TH/MM3 (0-0.2) CBC Comment AUTO DIFF Differential Comment AUTO DIFF CONFIRMED Platelet Estimate LOW (NORMAL) Platelet Morphology Comment CLUMPED (NORMAL) Target Cells 1+ (NORMAL) Prothrombin Time 11.5 SEC (9.8-11.6) Prothromb Time International Ratio 1.1 RATIO Activated Partial Thromboplast Time 24.0 SEC (24.3-30.1) Blood Urea Nitrogen 22 MG/DL (7-18) Creatinine 0.66 MG/DL (0.60-1.30) Random Glucose 154 MG/DL (74-106) Calcium Level 8.1 MG/DL (8.5-10.1) Magnesium Level 1.9 MG/DL (1.5-2.5) Sodium Level 139 MEQ/L (136-145) Potassium Level 3.9 MEQ/L (3.5-5.1) Chloride Level 101 MEQ/L (98-107) Carbon Dioxide Level 30.9 MEQ/L (21.0-32.0) Anion Gap 7 MEQ/L (5-15) Estimat Glomerular Filtration Rate 143 ML/MIN (>89) (Areli Dunaway) Result Diagram: 06/06/1740906/06/17409 Procedures * 05/20/17 -endotracheally intubated * 05/27/17 -medical extubation . (Areli Dunaway) Assessment and Plan Disease Oriented Problem List: (1) COPD (chronic obstructive pulmonary disease) (2) Systolic heart failure (3) Small bowel obstruction (4) Cardiomyopathy (5) Leg ulcer, left (6) Acute hypoxemic respiratory failure Symptom Scale: (1) Abdominal pain 0-10 Scale: Unable to quantify (2) Dyspnea 0-10 Scale: Unable to quantify Pertinent Non-Medical Issues Psychosocial: Patient is single, never . No children. [employer] , disabled secondary to PTSD. Patient was born and raised in [place]. Highest level of education is high school. Patient has 2 siblings in the area, one cousin that lives in [place]. Spiritual: No spiritism affiliation. Legal: Advance directives completed. Ethical issues impacting care: No ethical issues identified. . Important Contacts HCS/cousin Kathie Saavedra . Alternate surrogate/cousin Dee Taylor . . Prognosis Mr. Rocha is a 72-year-old male with a medical history significant for CHF, COPD, atrial fibrillation, medication noncompliance. Patient with significant progression of cardiopulmonary disease. He is O2 dependent, EF of 20%. Patient admitted for small bowel obstruction, somewhat improving. However, patient remains at high risk for further complications, continued decline and . Patient appears hospice appropriate should he elects comfort-directed care given significant cardiopulmonary disease. . Code Status: No Code Plan * CODE STATUS: DNR/DNI. Community DNR signed. * HEALTHCARE DECISION-MAKING: Patient participating in goals of care. Fair insight into his complicated medical condition. Advance directives completed. Patient has designated is cousin Kathie Cagle Keri as healthcare surrogate decision maker, alternate is cousin Dee Taylor. * GOALS OF CARE: Patient electing aggressive management short of NO resuscitation. Community DNR/DNI has been signed. Patient declining discharge to senior living facility for physical strengthening as recommended by PT. requesting to be discharged home. Reviewed home discharge limitations given intermittent confusion and debilitated clinical condition. Patient requesting to be discharged home. Home with hospice reintroduce given advanced COPD and CHF. Patient refused hospice given his past experience with his mother. Patient not receptive to continuation of goals of care conversation with palliative care at this time. * SYMPTOMS: = Abdominal pain, secondary to SBO. Resolved. Having BMs = Shortness of breath: Secondary to COPD, CHF exacerbation. Medically extubated tolerating nasal cannula at 2L. = Debility: chronic. PT/OT following, PT at rehab recommended, however, patient refusing. * Palliative care contact information has been provided to patient and family. * Palliative care will continue to follow up for further clarification of goals of care as patient's clinical course continues to evolve. . (Areli Dunaway) Time Spent Total Floor Time (mins): 34 (Total time to include review medical records, physical exam, goals of care conversation with patient, assistance with completion of community DNR, case discussion with bedside RN.) >50% Counseling/Coord of Care: Yes (Areli Dunaway) Attestation To help prompt me to consider important information that might be impacting today's encounter and assessment, information from prior notes written by myself or my colleagues may have been "brought forward" into today's note. My signature on this note, however, is an attestation that I personally performed the exam, history, and/or decision-making noted today, and, unless otherwise indicated, the interactions with patient, family, and staff as well as the review of records all occurred today. I also attest that the listed assessment and stated plan reflect my best clinical judgment today based on the combination of historical information, prior notes, and today's exam/ interactions. When time spent is documented, it refers only to time spent today by the signer, or if indicated, combined time spent today by collaborating physician/nurse practitioner. (Areli Dunaway) Collaborating MD Comments Chart reviewed. Case discussed with palliative care RESTRIKE HAMMER OPERATOR. Above RESTRIKE HAMMER OPERATOR note reviewed and I concur. . (Christopher Burns MD) Areli Dunaway Jun 06, 2017 16:28 Christopher Burns MD Jun 22, 2017 14:30
[2017-06-07 08:00] VITALS: BP 114/72; PULSE 73; RESP 17; TEMP 97.6; O2SAT 98
[2017-06-07] MEDS: CHLORHEXIDINE 0.12% (ORAL KIT) 15 ML CUP MT SCH ×2 (08:00→20:00)
[2017-06-07] MEDS: INSULIN ASPART SUPPLEMENTAL SCALE SQ SCH ×4 (08:00→21:00)
[2017-06-07] MEDS: POTASSIUM CHLORIDE 20 MEQ CONTROLLED RELEASE TAB PO SCH ×2 (09:00→22:09)
[2017-06-07] MEDS: QUEtiapine FUMARATE 25 MG TAB PO SCH ×2 (09:00→22:07)
[2017-06-07] MEDS: CARVEDILOL 6.25 MG TAB PO SCH ×2 (09:00→22:07)
[2017-06-07] MEDS: FONDAPARINUX SODIUM 7.5 MG/0.6 ML SYRINGE SQ SCH (09:00)
[2017-06-07] MEDS: FUROSEMIDE 40 MG TAB PO SCH (09:00)
[2017-06-07] MEDS: predniSONE 20 MG TAB PO SCH ×2 (09:00→22:07)
[2017-06-07] MEDS: SODIUM CHLORIDE 0.9% FLUSH 10 ML FLUSH IV FLUSH SCH ×2 (09:00→22:09)
[2017-06-07] MEDS: DILTIAZEM-CD 120 MG CAP ER PO SCH (09:00)
[2017-06-07] MEDS: BISACODYL 10 MG SUPP RECTAL SCH (09:00)
[2017-06-07] MEDS: LISINOPRIL 5 MG TAB PO SCH (09:00)
[2017-06-07] MEDS: COLLAGENASE OINT 30 GM TUBE TOPICAL SCH (09:00)
[2017-06-07] MEDS: DOCUSATE SODIUM 100 MG/10 ML UDC PO SCH ×2 (09:00→22:09)
[2017-06-07] MEDS: RESP: ALBUTEROL 2.5 MG/IPRATROPIUM 0.5 MG NEB (SCH) INH ×3 (09:13→21:39)
[2017-06-07 12:00] VITALS: BP 121/66; PULSE 90; RESP 17; TEMP 96.2; O2SAT 95
--- NOTE | 2017-06-07 13:16 | HHI.PR ---
Subjective Remarks Follow-up weakness, respiratory failure. The patient has been refusing medications and labs. He has been agitated throughout the day, yelling and using profanity. He states that he wants to go home. He is still weak and states that he cannot walk because his legs are weak. He denies dyspnea, pain. Objective Vitals Vital Signs Date Time Temp Pulse Resp B/P (MAP) Pulse Ox O2 Delivery O2 Flow Rate FiO2 06/07/17 12:00 96.2 90 17 121/66 (84) 95 06/07/17 08:00 Nasal Cannula 2.00 40 06/07/17 08:00 97.6 73 17 114/72 (86) 98 06/06/17 23:34 96.2 78 16 132/60 (84) 92 06/06/17 20:00 96.9 76 17 107/65 (79) 96 06/06/17 19:00 92 Nasal Cannula 2.00 06/06/17 16:00 98.6 72 20 125/78 (94) 93 06/06/17 14:09 92 Nasal Cannula 2.00 I/O 06/06/17 06/06/17 06/06/17 06/07/17 06/07/17 06/07/17 07:00 15:00 23:00 07:00 15:00 23:00 Intake Total 480 ml 720 ml Output Total 600 ml 500 ml Balance -600 ml -20 ml 720 ml Intake Oral 480 ml 720 ml Output Urine Total 600 ml 500 ml # Voids 2 # Bowel Movements 1 2 Result Diagram: 06/06/17 0410 06/06/17 0410 Imaging Last Impressions Chest X-Ray 05/26/17 0000 Signed Impressions: Service Date/Time: Friday, May 26, 2017 04:50 - CONCLUSION: Unchanged patchy parenchymal consolidations. Luis Marmolejo Jr., MD Abdomen X-Ray 05/22/17 0600 Signed Impressions: Service Date/Time: May 10:04 - CONCLUSION: The previously noted dilated small bowel have resolved. NG tube in the stomach. Jeff Foster MD Small Bowel X-Ray 05/14/17 0000 Signed Impressions: Service Date/Time: Sunday, May 14, 2017 11:20 - CONCLUSION: 1. Findings consistent with CT examination and suggestive of high grade obstruction in the distal jejunum/proximal ileum. Kwaku Vences MD Abdomen/Pelvis CT 05/13/17 1005 Signed Impressions: Service Date/Time: Saturday, May 13, 2017 11:36 - CONCLUSION: 1. Mid to distal jejunal small bowel ileus with acute transition characteristic of high grade small bowel obstruction. 2. Uncomplicated colonic diverticulosis. 3. Mild ascites. 4. Uncomplicated colonic diverticulosis. Conor John MD Objective Remarks General: No acute distress. Agitated. Heart: Tachycardic. No murmur. Lungs: Clear to auscultation bilaterally. No wheezes, rales, or rhonchi. Breathing is nonlabored. Abdomen: Soft, nontender, nondistended. Extremities: Trace bilateral lower extremity edema. SCDs. Psych: Alert, agitated. The patient is yelling throughout my exam. Procedures 05/20/17 intubation 05/21/17 central line placement, right subclavian Urinary Catheter: No Vascular Central Line Catheter: No A/P Assessment and Plan 1. Acute hypoxemic respiratory failure: Improved. Patient was intubated on 05/20 and extubated on 05/27/17. Now tolerating oxygen per nasal cannula. Pulmonology signed off. Continue prednisone, bronchodilators. 2. Chronic systolic congestive heart failure with exacerbation: Continue Lasix , lisinopril, Coreg, long-acting Cardizem. Aldactone on hold for relative hypotension. 3. Atrial fibrillation: Continue diltiazem. 4. Hemoptysis: Resolved. Appreciate pulmonology recommendations. H&H are stable. 5. Small bowel obstruction: General surgery has signed off. Continue pured diet per speech therapy. Continue bowel regimen. 6. Diabetes mellitus: Monitor Accu-Cheks and cover with sliding scale insulin. 7. Agitation: Likely secondary to delirium. Ativan for severe symptoms. Continue Seroquel twice daily. Consult psychiatry and neuropsychology for further recommendations. Patient has been refusing labs and meds. 8. Thrombocytopenia: Platelets are trending up. Heparin drip was discontinued on 05/22/17. Appreciate hematology recommendations. 9. DVT prophylaxis: SCDs. Anticoagulation on hold secondary to hemoptysis. 10. Hypokalemia: Supplement potassium and recheck labs in the morning. 11. Weakness: Continue physical therapy. 12. Community acquired pneumonia, present on admission: He was treated with antibiotics (initially Azithromycin/Rocephin, then Azactam, then Levaquin). Discharge Planning Patient needs SNF/rehab at discharge, but is refusing. Not safe for discharge home at this time. Case management assisting with discharge planning. Jair Christina MD Jun 07, 2017 13:16
[2017-06-07 16:00] VITALS: BP 147/88; PULSE 107; RESP 17; TEMP 97.4; O2SAT 93
--- NOTE | 2017-06-07 17:26 | PD.PSY.CON ---
Provisional Diagnosis Admission Date May 13, 2017 at 13:28 [place]. Psychological factors affecting medical condition History of Present Illness Service Psychiatry Consult Requested By Dr. Christina Reason for Consult Agitation, refusing care Primary Care Physician Unknown HPI Patient is a 72 y/o man, single, no children, domiciled alone, unemployed, [facility], with a past psychiatric history significant for depression, PTSD, no prior psychiatric admissions, no previous suicide attempt or self interest behavior with a past medical history significant for CHF, diabetes, A. fib, COPD, who was admitted to the medical service for pneumonia and small bowel obstruction, acute respiratory failure, CHF exacerbation, who has been stabilized medically but patient recently started to refuse treatment and demanded to be discharged home as well as being noted to be agitated belligerent with staff which psychiatry was consulted for evaluation. Patient was found lying hospital bed noted be superficially cooperative, guarded, at times dismissive required redirection to continue interview. Patient states he was admitted initially after being [facility] because "I was vomiting black stuff" states that the hospital was to keep him here that he just wants to go home. Patient stated he is feeling "alright", alert and oriented only to person, year and place. When attempted to ascertain if patient is aware of his current medical conditions and treatment that has been provided for him patient refused to engage stating "there is nothing wrong with me, I just want to go home". Patient was able tolerate part of the interview and became dismissive refusing to continue to engage further questioning. Past psychiatric history: Previous psychiatric diagnosis of depression, no previous psychiatric admissions (although as per chart patient had endorsed" admissions on previous encounter), suicide attempt or self interest behavior. Patient states he follows up with psychiatrist through the [facility] but was unable to recall the doctor's name. Past medical history: Diabetes, CHF, A. fib, COPD Allergies: Penicillin Substance use history: Patient reports remote use of tobacco and alcohol and cocaine years ago. No current use of any substance. Social history: single, no children, [employer] , disabled secondary to PTSD, born and raised in [place]. Highest level of education is high school. Patient has 2 siblings in the area, one cousin that lives in [place]. Past Family Social History Coded Allergies: Penicillins (Verified Allergy, Unknown, 04/03/17) Active Scripts Oxygen (O2) (Oxygen (O2)) Device, LITER ALEXANDRA.CANULA CONTINUOUS for Prevent Hypoxemia, #2 Oxygen Concentrator Portable Gaseous 2 L/min via Nasal Canula Continuous For 99 months Prov:Tom Shields MD 04/22/17 Collagenase (Santyl) 250 Unit/Gram Oin, 1 APPLIC TOPICAL DAILY for wound care, # 30 TUBE Prov:Tom Shields MD 04/22/17 [Gentamicin 0.1% Cream] 15 APPLIC/15 GM CR No Conflict Check, 1 APPLIC TOPICAL DAILY for wound care, #30 APPL Prov:Tom Shields MD 04/22/17 Prednisone (Prednisone) 20 Mg Tab, 20 MG PO DAILY for Control Inflammation, #2 TAB Prov:Tom Shields MD 04/22/17 Docusate Sodium (Dok) 100 Mg Cap, 100 MG PO BID for Prevent Constipation, #60 CAP Prov:Tom Shields MD 04/22/17 Furosemide (Furosemide) 40 Mg Tab, 40 MG PO BID@09,18 for Prevent Heart Failure , #60 TAB Prov:Tom Shields MD 04/22/17 Potassium Chloride Microencaps (Potassium Chloride Microencaps) 20 Meq Tab, 20 MEQ PO DAILY for Electrolyte Replacement, #30 TAB Prov:Tom Shields MD 04/22/[address] (Aspirin DR) 81 Mg Tabdr, 81 MG PO DAILY for Prevent Blood Clot, #30 TAB Prov:Tom Shields MD 04/22/17 Lisinopril (Lisinopril) 5 Mg Tab, 2.5 MG PO DAILY for Prevent Heart Failure, # 30 TAB Prov:Tom Shields MD 04/22/17 Diltiazem (Cardizem) 30 Mg Tab, 30 MG PO QID for Regulate Heart Beat, #120 TAB Prov:Tom Shields MD 04/22/17 Carvedilol (Coreg) 6.25 Mg Tab, 6.25 MG PO Q12HR for Prevent Heart Failure, #60 TAB Prov:Tom Shields MD 04/22/17 Warfarin (Coumadin) 5 Mg Tab, 5 MG PO DAILY@1600 for Prevent Blood Clot, #30 TAB start tomorrow if INR <3 Prov:Tom Shields MD 04/22/17 Current Medications Medications (Trade) Dose Ordered Sig/Deacon Route Start Time Stop Time Status Last Admin (NS Flush) 2 ml UNSCH PRN IV FLUSH 05/13/17 13:15 05/28/17 05:08 (NS Flush) 2 ml BID IV FLUSH 05/13/17 21:00 06/06/17 21:18 (Narcan Inj) 0.4 mg UNSCH PRN IV PUSH 05/13/17 13:15 (Zofran Inj) 4 mg Q6HR PRN IV PUSH 05/13/17 13:15 05/28/17 10:36 (Santyl Oint) 1 applic DAILY TOPICAL 05/15/17 09:00 06/06/17 08:34 (Prinivil) 2.5 mg DAILY PO 05/15/17 09:00 Future hold 06/06/17 08:34 (Duoneb Neb) 1 ampule Q2HR NEB PRN NEB 05/14/17 15:45 05/28/17 11:08 (Pill Splitter) 1 ea UNSCH PRN OTHER 05/14/17 16:00 05/29/17 09:10 (Dulcolax Supp) 10 mg DAILY RECTAL 05/16/17 09:00 06/06/17 08:35 (Milk Of Magnesia Liq) 30 ml QID PRN PO 05/17/17 16:30 06/05/17 12:40 (Peridex 0.12% Liq) 15 ml BID@08,20 MT 05/20/17 20:00 06/05/17 08:00 (D50w (Vial) Inj) 50 ml UNSCH PRN IV PUSH 05/21/17 12:45 (Glucagon Inj) 1 mg UNSCH PRN OTHER 05/21/17 12:45 (Colace Liq) 100 mg BID PO 05/24/17 09:00 06/06/17 21:17 (Trandate Inj) 10 mg Q4H PRN IV PUSH 05/28/17 08:00 (Deltasone) 20 mg BID PO 05/29/17 21:00 06/06/17 21:18 (NovoLOG SUPPLEMENTAL SCALE) 1 ACHS SLIDING SCALE SQ 05/30/17 17:00 06/06/17 21:00 (Reglan Inj) 10 mg Q8HR PRN IV PUSH 05/30/17 16:00 (Vasotec Inj) 1.25 mg Q6H PRN IV PUSH 05/31/17 15:15 (SEROquel) 25 mg BID PO 06/01/17 13:45 06/06/17 21:18 (Arixtra Inj) 7.5 mg Q24H SQ 06/04/17 09:00 06/06/17 08:35 (Duoneb Neb) 1 ampule TID NEB INH 06/04/17 20:00 06/06/17 21:51 (Coreg) 3.125 mg Q12HR PO 06/04/17 21:00 06/06/17 21:18 (Cardizem Cd) 120 mg DAILY PO 06/05/17 09:00 06/06/17 08:34 (Lasix) 40 mg DAILY PO 06/06/17 09:00 06/06/17 08:35 (KCl) 20 meq Q12HR PO 06/05/17 14:45 06/06/17 21:18 Physical Exam Vital Signs Vital Signs Date Time Temp Pulse Resp B/P (MAP) Pulse Ox O2 Delivery O2 Flow Rate FiO2 06/07/17 12:00 96.2 90 17 121/66 (84) 95 06/07/17 08:00 Nasal Cannula 2.00 40 I/O 06/07/17 06/07/17 06/08/17 08:00 16:00 00:00 Intake Total 720 ml Balance 720 ml Lab Results Date/Time Source Procedure Growth Status 05/20/17 11:40 Sputum Endotracheal Gram Stain - Final Complete 05/20/17 11:40 Sputum Endotracheal Sputum Culture - Final HEAVY GROWTH NORMAL RESPIRATORY DARCIE Complete Assessment & Plan Problem List: (1) Psychological factors affecting medical condition ICD Codes: F54 - Psychological and behavioral factors associated with disorders or diseases classified elsewhere Assessment & Plan Patient is a 72-year-old -[place] man, with a past psychiatric history of PTSD, one remote psychiatric admission, with a past medical history significant for COPD, CHF, diabetes, A. fib was recently admitted to the medical service for left lower lobe pneumonia with subsequent acute respiratory failure and small bowel obstruction which has been resolved, who has been admitted since 05/13/17 and currently demanding to go home and refusing to comply with treatment and noted to be belligerent with staff which psychiatry was consulted for evaluation. Patient at this time with limited participation in interview due to refusing to engage fully. As per the limited interaction patient was not able to express understanding of his current medical conditions or current treatments along with risks and benefits of the same. Due to limited cooperation from patient, ascertaining patient's appreciation of his current medical condition is challenging in the context of patient's frustration of prolonged hospitalization. It is possible to consider episodic delirious states which may impair patient's decisional capacity which at this time patient appears not to have capacity at this time. Consider involving patient's healthcare surrogate decision making. The patient becomes increasingly agitated, Haldol 5 mg IM every 8 hours as needed for agitation. Consult appreciated. Benton Cuba MD Jun 07, 2017 17:26
[2017-06-07 20:00] VITALS: BP 105/64; PULSE 71; RESP 17; TEMP 96.6; O2SAT 95
[2017-06-07 21:41] VITALS: O2SAT 93
[2017-06-08] VITALS: BP 119/69; PULSE 82; RESP 16; TEMP 97.9; O2SAT 95
[2017-06-08 08:00] VITALS: BP 138/67; PULSE 64; RESP 22; TEMP 96.2; O2SAT 97
[2017-06-08] MEDS: INSULIN ASPART SUPPLEMENTAL SCALE SQ SCH ×4 (08:00→20:21)
[2017-06-08] MEDS: CHLORHEXIDINE 0.12% (ORAL KIT) 15 ML CUP MT SCH ×2 (08:00→19:26)
--- NOTE | 2017-06-08 08:51 | HHI.PR ---
Subjective Remarks Follow up weakness. Patient still angry. Wants to go home now. Objective Vitals Vital Signs Date Time Temp Pulse Resp B/P (MAP) Pulse Ox O2 Delivery O2 Flow Rate FiO2 06/08/17 00:00 97.9 82 16 119/69 (86) 95 06/07/17 21:41 93 Nasal Cannula 2.00 06/07/17 20:00 96.6 71 17 105/64 (78) 95 06/07/17 19:00 93 Nasal Cannula 2.00 06/07/17 16:00 97.4 107 17 147/88 (107) 93 06/07/17 12:00 96.2 90 17 121/66 (84) 95 I/O 06/07/17 06/07/17 06/07/17 06/08/17 06/08/17 06/08/17 07:00 15:00 23:00 07:00 15:00 23:00 Intake Total 720 ml 480 ml 840 ml Output Total 700 ml Balance 720 ml 480 ml 140 ml Intake Oral 720 ml 480 ml 840 ml Output Urine Total 700 ml # Voids 2 2 1 # Bowel Movements 2 1 0 Result Diagram: 06/06/17 0410 06/06/17 0410 Imaging Last Impressions Chest X-Ray 05/26/17 0000 Signed Impressions: Service Date/Time: Friday, May 26, 2017 04:50 - CONCLUSION: Unchanged patchy parenchymal consolidations. Luis Marmolejo Jr., MD Abdomen X-Ray 05/22/17 0600 Signed Impressions: Service Date/Time: May 10:04 - CONCLUSION: The previously noted dilated small bowel have resolved. NG tube in the stomach. Jeff Foster MD Small Bowel X-Ray 05/14/17 0000 Signed Impressions: Service Date/Time: Sunday, May 14, 2017 11:20 - CONCLUSION: 1. Findings consistent with CT examination and suggestive of high grade obstruction in the distal jejunum/proximal ileum. Kwaku Vences MD Abdomen/Pelvis CT 05/13/17 1005 Signed Impressions: Service Date/Time: Saturday, May 13, 2017 11:36 - CONCLUSION: 1. Mid to distal jejunal small bowel ileus with acute transition characteristic of high grade small bowel obstruction. 2. Uncomplicated colonic diverticulosis. 3. Mild ascites. 4. Uncomplicated colonic diverticulosis. Conor John MD Objective Remarks General: No acute distress. Heart: Tachycardic. No murmur. Lungs: Clear to auscultation bilaterally. No wheezes, rales, or rhonchi. Breathing is nonlabored. Abdomen: Soft, nontender, nondistended. Extremities: Trace bilateral lower extremity edema. SCDs. Psych: Alert. Becomes agitated. Procedures 05/20/17 intubation 05/21/17 central line placement, right subclavian Urinary Catheter: No Vascular Central Line Catheter: No A/P Assessment and Plan 06/08/17: Patient still agitated, weak. Continue PT. Appreciate psychiatry recommendations. Could be discharged to SNF, but patient refusing. Per psychiatry he lacks capacity. Per case management, health care surrogate stated that the patient needed to make the decision regarding SNF. 1. Acute hypoxemic respiratory failure: Improved. Patient was intubated on 05/20 and extubated on 05/27/17. Now tolerating oxygen per nasal cannula. Pulmonology signed off. Continue prednisone, bronchodilators. 2. Chronic systolic congestive heart failure with exacerbation: Continue Lasix , lisinopril, Coreg, long-acting Cardizem. Aldactone on hold for relative hypotension. 3. Atrial fibrillation: Continue diltiazem. 4. Hemoptysis: Resolved. Appreciate pulmonology recommendations. H&H are stable. 5. Small bowel obstruction: General surgery has signed off. Continue pured diet per speech therapy. Continue bowel regimen. 6. Diabetes mellitus: Monitor Accu-Cheks and cover with sliding scale insulin. 7. Agitation: Likely secondary to delirium. Ativan for severe symptoms. Continue Seroquel twice daily. Consult psychiatry and neuropsychology for further recommendations. Patient has been refusing labs and meds. 8. Thrombocytopenia: Platelets are trending up. Heparin drip was discontinued on 05/22/17. Appreciate hematology recommendations. 9. DVT prophylaxis: SCDs. Anticoagulation on hold secondary to hemoptysis. 10. Hypokalemia: Improved. 11. Weakness: Continue physical therapy. 12. Community acquired pneumonia, present on admission: He was treated with antibiotics (initially Azithromycin/Rocephin, then Azactam, then Levaquin). Discharge Planning Patient needs SNF/rehab at discharge, but is refusing. Not safe for discharge home at this time. Case management assisting with discharge planning. Jair Christina MD Jun 08, 2017 08:51
[2017-06-08] MEDS: COLLAGENASE OINT 30 GM TUBE TOPICAL SCH ×2 (09:00→15:12)
[2017-06-08] MEDS: SODIUM CHLORIDE 0.9% FLUSH 10 ML FLUSH IV FLUSH SCH ×2 (09:00→20:22)
[2017-06-08] MEDS: POTASSIUM CHLORIDE 20 MEQ CONTROLLED RELEASE TAB PO SCH ×3 (09:00→20:18)
[2017-06-08] MEDS: CARVEDILOL 6.25 MG TAB PO SCH ×3 (09:00→20:22)
[2017-06-08] MEDS: QUEtiapine FUMARATE 25 MG TAB PO SCH ×3 (09:00→20:22)
[2017-06-08] MEDS: predniSONE 20 MG TAB PO SCH ×3 (09:00→20:22)
[2017-06-08] MEDS: LISINOPRIL 5 MG TAB PO SCH ×2 (09:00→15:09)
[2017-06-08] MEDS: DILTIAZEM-CD 120 MG CAP ER PO SCH ×2 (09:00→15:09)
[2017-06-08] MEDS: BISACODYL 10 MG SUPP RECTAL SCH ×2 (09:00→15:12)
[2017-06-08] MEDS: FUROSEMIDE 40 MG TAB PO SCH ×2 (09:00→15:11)
[2017-06-08] MEDS: DOCUSATE SODIUM 100 MG/10 ML UDC PO SCH ×3 (09:00→20:21)
[2017-06-08] MEDS: FONDAPARINUX SODIUM 7.5 MG/0.6 ML SYRINGE SQ SCH ×2 (09:00→15:11)
[2017-06-08] MEDS: RESP: ALBUTEROL 2.5 MG/IPRATROPIUM 0.5 MG NEB (SCH) INH ×2 (09:24→13:25)
[2017-06-08 09:25] VITALS: O2SAT 97
[2017-06-08 19:50] VITALS: O2SAT 97
[2017-06-08 20:00] VITALS: BP 128/74; PULSE 79; RESP 18; TEMP 97.4; O2SAT 92
[2017-06-09] VITALS: BP 131/74; PULSE 75; RESP 17; TEMP 96.5; O2SAT 92
[2017-06-09 04:00] VITALS: BP 120/79; PULSE 82; RESP 16; TEMP 96.9; O2SAT 92
[2017-06-09 08:00] VITALS: BP 139/73; PULSE 69; RESP 17; TEMP 97.3; O2SAT 97
[2017-06-09] MEDS: CHLORHEXIDINE 0.12% (ORAL KIT) 15 ML CUP MT SCH ×2 (08:00→20:00)
[2017-06-09] MEDS: INSULIN ASPART SUPPLEMENTAL SCALE SQ SCH ×4 (08:00→21:00)
[2017-06-09] MEDS: BISACODYL 10 MG SUPP RECTAL SCH (09:00)
[2017-06-09] MEDS: POTASSIUM CHLORIDE 20 MEQ CONTROLLED RELEASE TAB PO SCH ×2 (09:00→21:40)
[2017-06-09] MEDS: FUROSEMIDE 40 MG TAB PO SCH (09:00)
[2017-06-09] MEDS: DOCUSATE SODIUM 100 MG/10 ML UDC PO SCH ×2 (09:35→21:00)
[2017-06-09] MEDS: SODIUM CHLORIDE 0.9% FLUSH 10 ML FLUSH IV FLUSH SCH ×2 (09:35→21:42)
[2017-06-09] MEDS: predniSONE 20 MG TAB PO SCH ×2 (09:37→21:40)
[2017-06-09] MEDS: FONDAPARINUX SODIUM 7.5 MG/0.6 ML SYRINGE SQ SCH (09:37)
[2017-06-09] MEDS: DILTIAZEM-CD 120 MG CAP ER PO SCH (09:37)
[2017-06-09] MEDS: LISINOPRIL 5 MG TAB PO SCH (09:37)
[2017-06-09] MEDS: CARVEDILOL 6.25 MG TAB PO SCH ×2 (09:38→21:40)
[2017-06-09] MEDS: COLLAGENASE OINT 30 GM TUBE TOPICAL SCH (09:39)
[2017-06-09] MEDS: QUEtiapine FUMARATE 25 MG TAB PO SCH ×2 (09:39→21:40)
[2017-06-09 11:05] LABS: PROTHROMBIN TIME - PATIENT 10.6 SEC (9.8-11.6)
[2017-06-09 11:08] LABS: BICARBONATE 26.6 MEQ/L (21.0-32.0); CALCIUM 8.8 MG/DL (8.5-10.1); CREATININE 0.69 MG/DL (0.60-1.30)
[2017-06-09 12:00] VITALS: BP 120/63; PULSE 74; RESP 17; TEMP 97.2; O2SAT 96
[2017-06-09 16:00] VITALS: BP 108/65; PULSE 74; RESP 18; TEMP 97.2; O2SAT 98
--- NOTE | 2017-06-09 16:41 | HHI.PR ---
Subjective Remarks Nursing denies any deterioration since last night. Still reports the patient intermittently refusing labs. Patient himself is a poor historian but I attribute this to his poor mentation. Objective Vital Signs Date Time Temp Pulse Resp B/P (MAP) Pulse Ox O2 Delivery O2 Flow Rate FiO2 06/09/17 12:00 97.2 74 17 120/63 (82) 96 06/09/17 08:00 97.3 69 17 139/73 (95) 97 06/09/17 04:00 96.9 82 16 120/79 (93) 92 06/09/17 00:00 96.5 75 17 131/74 (93) 92 06/08/17 20:20 Room Air 06/08/17 20:00 97.4 79 18 128/74 (92) 92 06/08/17 19:50 97 Nasal Cannula 2.00 I/O 06/08/17 06/08/17 06/08/17 06/09/17 06/09/17 06/09/17 07:00 15:00 23:00 07:00 15:00 23:00 Intake Total 840 ml 360 ml 780 ml Output Total 700 ml 700 ml 300 ml 875 ml 300 ml Balance 140 ml -340 ml -300 ml -95 ml -300 ml Intake Oral 840 ml 360 ml 780 ml Output Urine Total 700 ml 700 ml 300 ml 875 ml 300 ml # Voids 1 # Bowel Movements 0 1 Result Diagram: 06/06/17 0410 06/09/17 1010 Objective Remarks Unlabored breathing, clear lungs bilaterally, Patient is talking to himself, when asked how he is doing, he is very labile in his mood and gets frustrated with my questions and starts raising his voice. Yet he does cooperate with the physical exam A/P Assessment and Plan Weakness and dependency on ADLs - Patient is most appropriate for significant and stable for discharge at this time to [facility]. Per psychiatry he lacks capacity. Discussed with case management, because it appears to be the only healthcare surrogate interested at this time if at all. Will consider discussing with the cousin to see if they would be okay with the patient going to a [facility] in [facility] closer to them. Chronic systolic congestive heart failure with exacerbation: Continue Lasix, lisinopril, Coreg, long-acting Cardizem. Aldactone on hold for relative hypotension. Atrial fibrillation: Continue diltiazem. Small bowel obstruction: improved, General surgery has signed off. Continue pur ed diet per speech therapy. Continue bowel regimen. Diabetes mellitus: Monitor Accu-Cheks and cover with sliding scale insulin. Agitation: Likely secondary to delirium. Ativan for severe symptoms. Continue Seroquel twice daily. Intermittently refusing meds/labs. Appreciate psych and neuropsych input. Thrombocytopenia: stable. will resume lovenox DVT prophylaxis: SCDs. Resolved problems: Hemoptysis: Resolved. Appreciate pulmonology recommendations. CAP: s/p tx Acute hypoxemic respiratory failure: resolved. Patient was intubated on 05/20/17 and extubated on 05/27/17. Now tolerating oxygen per nasal cannula. Pulmonology signed off. Continue prednisone, bronchodilators. Discharge Planning Discussed with case management, because it appears to be the only healthcare surrogate interested at this time if at all. Will consider discussing with the cousin to see if they would be okay with the patient going to a sniff in [facility] closer to them. Emir Flowers MD Jun 09, 2017 16:41
[2017-06-09 21:16] VITALS: BP 117/62; PULSE 69; RESP 17; TEMP 97.7; O2SAT 94
[2017-06-10 00:17] VITALS: BP 138/77; PULSE 58; RESP 17; TEMP 97.6; O2SAT 94
[2017-06-10 05:25] VITALS: BP 150/79; PULSE 70; RESP 17; TEMP 97.6; O2SAT 96
[2017-06-10 08:00] VITALS: BP 113/67; PULSE 70; RESP 20; TEMP 97.1; O2SAT 98
[2017-06-10] MEDS: INSULIN ASPART SUPPLEMENTAL SCALE SQ SCH ×4 (08:00→20:30)
[2017-06-10] MEDS: CHLORHEXIDINE 0.12% (ORAL KIT) 15 ML CUP MT SCH ×2 (08:00→19:50)
[2017-06-10] MEDS: POTASSIUM CHLORIDE 20 MEQ CONTROLLED RELEASE TAB PO SCH ×2 (09:00→20:28)
[2017-06-10] MEDS: BISACODYL 10 MG SUPP RECTAL SCH (09:00)
[2017-06-10] MEDS: COLLAGENASE OINT 30 GM TUBE TOPICAL SCH (09:00)
[2017-06-10] MEDS: FONDAPARINUX SODIUM 7.5 MG/0.6 ML SYRINGE SQ SCH (09:00)
[2017-06-10] MEDS: SODIUM CHLORIDE 0.9% FLUSH 10 ML FLUSH IV FLUSH SCH ×2 (09:28→20:30)
[2017-06-10] MEDS: predniSONE 20 MG TAB PO SCH ×2 (09:29→20:28)
[2017-06-10] MEDS: QUEtiapine FUMARATE 25 MG TAB PO SCH ×2 (09:29→20:28)
[2017-06-10] MEDS: DILTIAZEM-CD 120 MG CAP ER PO SCH (09:30)
[2017-06-10] MEDS: FUROSEMIDE 40 MG TAB PO SCH (09:30)
[2017-06-10] MEDS: LISINOPRIL 5 MG TAB PO SCH (09:30)
[2017-06-10] MEDS: CARVEDILOL 6.25 MG TAB PO SCH ×2 (09:30→20:29)
[2017-06-10] MEDS: DOCUSATE SODIUM 100 MG/10 ML UDC PO SCH ×2 (09:31→20:27)
[2017-06-10 12:00] VITALS: BP 107/54; PULSE 52; RESP 20; TEMP 96.8; O2SAT 92
--- NOTE | 2017-06-10 14:00 | HHI.HCPN ---
Reason for visit a. To assist with evaluation and management of symptoms including: Abdominal pain, shortness of breath, debility. b. To assist medical decision maker(s) with: better understanding of current medical conditions; weighing benefits/burdens of medical treatment options; making medical treatment decisions. . Subjective/Interval History Palliative care follow-up for further clarifications of goals of care. Psychiatry on 06/07, patient was found not capacitated for medical decision- making secondary to episodic delirium. Patient currently on Seroquel twice a day. Patient seen in his room, he was resting in bed in no acute distress. Calm, verbal but not wishing to participate much with visit. Reviewed with patient recommendations for rehabilitation, physical strengthening. Patient tells me that he only wants to go home, verbalized feeling upset that were not letting him go home. Patient declined to engage further in visit. No new imaging or laboratory for review. Patient remains afebrile, stable hemodynamically. He was seen tolerating room air with no dyspnea reported. Telephone conversation with patient's cousin/healthcare surrogate Mrs. Saavedra. Medical update provided. She reports speaking with case management yesterday. Cousin in agreement with rehabilitation at either [facility] or another residential facility in the area. She was inquiring regarding possibly transferring patient to [facility] SNF in order to be closer to family. Left message to spring encaser Phong Shaffer with the above information. . Family/friend interactions See interval note. . Advance Directives Health Care Surrogate: Copy in medical record Advance Directive Specifics Date completed: 05/15/2017. . Health Care Surrogate(s): cousin Kathie Saavedra listed as healthcare surrogate decision maker. Alternate surrogate is cousin Dee Taylor. . Documented care wishes: Patient verbalized that in the event of being placed on life support, he would only allow 2 days and if no recovery, okay to "let him go" . Significant change in goals: aggressive goals short of no resuscitation. . Objective Vital Signs Date Time Temp Pulse Resp B/P (MAP) Pulse Ox O2 Delivery O2 Flow Rate FiO2 06/10/17 12:00 96.8 52 20 107/54 (71) 92 06/10/17 08:10 98 Nasal Cannula 1.00 06/10/17 08:00 97.1 70 20 113/67 (82) 98 06/10/17 05:25 97.6 70 17 150/79 (102) 96 06/10/17 05:05 Nasal Cannula 1.00 06/10/17 00:17 97.6 58 17 138/77 (97) 94 06/09/17 21:16 97.7 69 17 117/62 (80) 94 06/09/17 16:00 97.2 74 18 108/65 (79) 98 Intake & Output 06/10/17 06/10/17 07:00 19:00 Intake Total 240 ml Output Total 2200 ml Balance -1960 ml Intake Oral 240 ml Output Urine Total 2200 ml Physical Exam CONSTITUTIONAL/GENERAL: This is an adequately nourished patient, in no apparent distress. TUBES/LINES/DRAINS: PIV. SKIN: No jaundice, rashes. Skin warm/dry. Nonhealing sores to bilateral lower extremities. Dressing left lower extremity, dry and intact. CARDIOVASCULAR: Regular rate and rhythm. Peripheral pulses symmetric. Venous stasis to bilateral lower extremities. RESPIRATORY/CHEST: Symmetric, unlabored respirations on NC. Diminished breath sounds bilaterally- O2 via nasal cannula 2L GASTROINTESTINAL: Abdomen large, round, soft. Active bowel sounds. GENITOURINARY: Without palpable bladder distension. MUSCULOSKELETAL: Extremities without clubbing. No edema. NEUROLOGICAL: awake, oriented to self, place and situation. PSYCHIATRIC: Calm. . Diagnostic Tests Laboratory Laboratory Tests Test 06/09/17 10:10 Prothrombin Time 10.6 SEC (9.8-11.6) Prothromb Time International Ratio 1.0 RATIO Activated Partial Thromboplast Time 18.9 SEC (24.3-30.1) Blood Urea Nitrogen 18 MG/DL (7-18) Creatinine 0.69 MG/DL (0.60-1.30) Random Glucose 101 MG/DL (74-106) Calcium Level 8.8 MG/DL (8.5-10.1) Sodium Level 139 MEQ/L (136-145) Potassium Level 4.2 MEQ/L (3.5-5.1) Chloride Level 104 MEQ/L (98-107) Carbon Dioxide Level 26.6 MEQ/L (21.0-32.0) Anion Gap 8 MEQ/L (5-15) Estimat Glomerular Filtration Rate 136 ML/MIN (>89) Result Diagram: 06/06/17 0410 06/09/17 1010 Procedures * 05/20/17 -endotracheally intubated * 05/27/17 -medical extubation . Assessment and Plan Disease Oriented Problem List: (1) COPD (chronic obstructive pulmonary disease) (2) Systolic heart failure (3) Small bowel obstruction (4) Cardiomyopathy (5) Leg ulcer, left (6) Acute hypoxemic respiratory failure Symptom Scale: (1) Abdominal pain 0-10 Scale: Unable to quantify (2) Dyspnea 0-10 Scale: Unable to quantify Pertinent Non-Medical Issues Psychosocial: Patient is single, never . No children. [employer] , disabled secondary to PTSD. Patient was born and raised in [place]. Highest level of education is high school. Patient has 2 siblings in the area, one cousin that lives in [place]. Spiritual: No restoration affiliation. Legal: Advance directives completed. Ethical issues impacting care: No ethical issues identified. . Important Contacts HCS/cousin Kathie Saavedra . Alternate surrogate/cousin Dee Taylor . . Prognosis Mr. Rocha is a 72-year-old male with a medical history significant for CHF, COPD, atrial fibrillation, medication noncompliance. Patient with significant progression of cardiopulmonary disease. He is O2 dependent, EF of 20%. Patient admitted for small bowel obstruction, somewhat improving. However, patient remains at high risk for further complications, continued decline and . Patient appears hospice appropriate should he elects comfort-directed care given significant cardiopulmonary disease. . Code Status: No Code Plan * CODE STATUS: DNR/DNI. Community DNR signed. * HEALTHCARE DECISION-MAKING: Patient with intermittent participation in goals of care. Fair/poor insight into his complicated medical condition. Has been seen by psychiatry, not capacitated as of 06/07 secondary to episodic delirium. Advance directives completed. Patient has designated is cousin Kathie Saavedra as healthcare surrogate decision maker, alternate is helensin Dee Taylor. * GOALS OF CARE: Goals remain aggressive short of NO resuscitation. Patient declining discharge to residential facility for physical strengthening as recommended by PT; However, patient deemed not capacitated for med decision- making on 06/07 by psychiatry secondary to episodic delirium. Healthcare surrogate cousin Kathie Saavedra assisting with medical decision making given the above. Cousin in agreement with rehabilitation at either [facility] or another residential facility in the area. She was inquiring regarding possibly transferring patient to [facility] SNF in order to be closer to family. Left message to spring encaser Phong Shaffer with the above information. . * SYMPTOMS: = Shortness of breath: Secondary to COPD, CHF exacerbation. Currently tolerating RA. = Debility: chronic. PT/OT following, PT at rehab recommended, however, patient refusing. =Agitation: Currently on Seroquel 25 mg twice daily. * Palliative care contact information has been provided to patient and family. * Palliative care will continue to follow up as needed for further clarification of goals of care as patient's clinical course continues to evolve. . Time Spent Total Floor Time (mins): 32 (Total time to include review medical records, physical exam, goals of care conversation with patient and healthcare surrogate , telephone call to case management.) >50% Counseling/Coord of Care: Yes Attestation To help prompt me to consider important information that might be impacting today's encounter and assessment, information from prior notes written by myself or my colleagues may have been "brought forward" into today's note. My signature on this note, however, is an attestation that I personally performed the exam, history, and/or decision-making noted today, and, unless otherwise indicated, the interactions with patient, family, and staff as well as the review of records all occurred today. I also attest that the listed assessment and stated plan reflect my best clinical judgment today based on the combination of historical information, prior notes, and today's exam/ interactions. When time spent is documented, it refers only to time spent today by the signer, or if indicated, combined time spent today by collaborating physician/nurse practitioner. Areli Dunaway Jun 10, 2017 14:00
[2017-06-10 16:00] VITALS: BP 92/56; PULSE 72; RESP 20; TEMP 97; O2SAT 92
--- NOTE | 2017-06-10 17:10 | HHI.PR ---
Subjective Remarks Nursing denies any deterioration since last night. Still reports the patient intermittently refusing labs. Patient himself is a poor historian but I attribute this to his poor insight Objective Vital Signs Date Time Temp Pulse Resp B/P (MAP) Pulse Ox O2 Delivery O2 Flow Rate FiO2 06/10/17 16:00 97.0 72 20 92/56 (68) 92 06/10/17 12:00 96.8 52 20 107/54 (71) 92 06/10/17 08:10 98 Nasal Cannula 1.00 06/10/17 08:00 97.1 70 20 113/67 (82) 98 06/10/17 05:25 97.6 70 17 150/79 (102) 96 06/10/17 05:05 Nasal Cannula 1.00 06/10/17 00:17 97.6 58 17 138/77 (97) 94 06/09/17 21:16 97.7 69 17 117/62 (80) 94 I/O 06/09/17 06/09/17 06/09/17 06/10/17 06/10/17 06/10/17 07:00 15:00 23:00 07:00 15:00 23:00 Intake Total 780 ml 960 ml 240 ml Output Total 875 ml 300 ml 1600 ml 2200 ml Balance -95 ml -300 ml -640 ml -1960 ml Intake Oral 780 ml 960 ml 240 ml Output Urine Total 875 ml 300 ml 1600 ml 2200 ml Result Diagram: 06/06/17 0410 06/09/17 1010 Objective Remarks Unlabored breathing, clear lungs bilaterally, Patient is talking to himself, when asked how he is doing, he is very labile in his mood and gets frustrated with my questions and starts raising his voice. Yet he does cooperate with the physical exam A/P Assessment and Plan Weakness and dependency on ADLs - Patient is most appropriate for significant and stable for discharge at this time to sniff. Per psychiatry he lacks capacity. Chronic systolic congestive heart failure with exacerbation: Continue Lasix, lisinopril, Coreg, long-acting Cardizem. Aldactone on hold for relative hypotension. Atrial fibrillation: Continue diltiazem. Small bowel obstruction: improved, General surgery has signed off. Continue pur ed diet per speech therapy. Continue bowel regimen. Diabetes mellitus: Monitor Accu-Cheks and cover with sliding scale insulin. Agitation: Likely secondary to delirium. Ativan for severe symptoms. Continue Seroquel twice daily. Intermittently refusing meds/labs. Appreciate psych and neuropsych input. Thrombocytopenia: stable. will resume lovenox DVT prophylaxis: SCDs. Resolved problems: Hemoptysis: Resolved. Appreciate pulmonology recommendations. CAP: s/p tx Acute hypoxemic respiratory failure: resolved. Patient was intubated on 05/20/17 and extubated on 05/27/17. Now tolerating oxygen per nasal cannula. Pulmonology signed off. Continue prednisone, bronchodilators. Discharge Planning Discussed with case management, possible family member lives in the city, will see if they can help with placement decision Emir Flowers MD Jun 10, 2017 17:10
[2017-06-10 20:00] VITALS: BP 128/82; PULSE 85; RESP 18; TEMP 96.2; O2SAT 92
[2017-06-11] MEDS: MAGNESIUM HYDROXIDE SUSP 30 ML CUP PO PRN (00:23)
[2017-06-11 03:10] VITALS: BP 111/70; PULSE 78; RESP 18; TEMP 98.3; O2SAT 93
[2017-06-11 08:00] VITALS: BP 117/67; PULSE 61; RESP 16; TEMP 97.7; O2SAT 94
[2017-06-11] MEDS: CHLORHEXIDINE 0.12% (ORAL KIT) 15 ML CUP MT SCH ×2 (08:00→20:00)
[2017-06-11] MEDS: INSULIN ASPART SUPPLEMENTAL SCALE SQ SCH ×4 (08:00→21:00)
[2017-06-11] MEDS: CARVEDILOL 6.25 MG TAB PO SCH ×2 (08:55→22:10)
[2017-06-11] MEDS: predniSONE 20 MG TAB PO SCH ×2 (08:55→22:07)
[2017-06-11] MEDS: DOCUSATE SODIUM 100 MG/10 ML UDC PO SCH ×2 (08:55→21:00)
[2017-06-11] MEDS: QUEtiapine FUMARATE 25 MG TAB PO SCH ×2 (08:55→22:07)
[2017-06-11] MEDS: DILTIAZEM-CD 120 MG CAP ER PO SCH (08:55)
[2017-06-11] MEDS: FUROSEMIDE 40 MG TAB PO SCH (08:55)
[2017-06-11] MEDS: LISINOPRIL 5 MG TAB PO SCH (08:55)
[2017-06-11] MEDS: FONDAPARINUX SODIUM 7.5 MG/0.6 ML SYRINGE SQ SCH ×2 (08:55→09:00)
[2017-06-11] MEDS: SODIUM CHLORIDE 0.9% FLUSH 10 ML FLUSH IV FLUSH SCH ×2 (08:56→22:08)
[2017-06-11] MEDS: POTASSIUM CHLORIDE 20 MEQ CONTROLLED RELEASE TAB PO SCH ×3 (08:56→22:07)
[2017-06-11] MEDS: BISACODYL 10 MG SUPP RECTAL SCH (08:56)
[2017-06-11] MEDS: COLLAGENASE OINT 30 GM TUBE TOPICAL SCH (08:58)
[2017-06-11 12:00] VITALS: BP 100/63; PULSE 82; RESP 17; TEMP 96.7; O2SAT 95
[2017-06-11 16:00] VITALS: BP 106/67; PULSE 67; RESP 18; TEMP 96.2; O2SAT 92
--- NOTE | 2017-06-11 17:12 | HHI.PR ---
Subjective Remarks Nursing denies any deterioration since last night. Patient is much more relaxed this morning. Complaining of some left eye pain Objective Vital Signs Date Time Temp Pulse Resp B/P (MAP) Pulse Ox O2 Delivery O2 Flow Rate FiO2 06/11/17 16:00 96.2 67 18 106/67 (80) 92 06/11/17 12:00 96.7 82 17 100/63 (75) 95 06/11/17 08:00 Room Air 06/11/17 08:00 97.7 61 16 117/67 (84) 94 06/11/17 03:10 98.3 78 18 111/70 (84) 93 06/10/17 20:00 96.2 85 18 128/82 (97) 92 06/10/17 20:00 Room Air I/O 06/10/17 06/10/17 06/10/17 06/11/17 06/11/17 06/11/17 06:59 14:59 22:59 06:59 14:59 22:59 Intake Total 240 ml 1140 ml Output Total 2200 ml 1150 ml 400 ml Balance -1960 ml -10 ml -400 ml Intake Oral 240 ml 1140 ml Output Urine Total 2200 ml 1150 ml 400 ml # Voids 1 # Bowel Movements 0 Result Diagram: 06/09/17 1010 Objective Remarks Unlabored breathing, clear lungs bilaterally, Calm demeanor this morning, has erythematous conjunctiva of left eye with no purulent discharge noted A/P Assessment and Plan Weakness and dependency on ADLs - Patient is most appropriate for significant and stable for discharge at this time to sniff. Per psychiatry he lacks capacity. Chronic systolic congestive heart failure with exacerbation: Continue Lasix, lisinopril, Coreg, long-acting Cardizem. Aldactone on hold for relative hypotension. Atrial fibrillation: Continue diltiazem. Small bowel obstruction: improved, General surgery has signed off. Continue pur ed diet per speech therapy. Continue bowel regimen. Diabetes mellitus: Monitor Accu-Cheks and cover with sliding scale insulin. Agitation: Likely secondary to delirium. Ativan for severe symptoms. Continue Seroquel twice daily. Intermittently refusing meds/labs. Appreciate psych and neuropsych input. Thrombocytopenia: stable. will resume lovenox Irritant conjunctivitis -likely secondary to rubbing his eye, if no resolution will start opthalmic antibiotics DVT prophylaxis: SCDs. Resolved problems: Hemoptysis: Resolved. Appreciate pulmonology recommendations. CAP: s/p tx Acute hypoxemic respiratory failure: resolved. Patient was intubated on 05/20/17 and extubated on 05/27/17. Now tolerating oxygen per nasal cannula. Pulmonology signed off. Continue prednisone, bronchodilators. Discharge Planning Still awaiting family member to help make decision regarding placement as the patient lacks capacity per psychiatry Emir Flowers MD Jun 11, 2017 17:12
[2017-06-11 20:00] VITALS: BP 100/52; PULSE 90; RESP 18; TEMP 97.1; O2SAT 94
[2017-06-12 08:00] VITALS: BP 126/77; PULSE 81; RESP 19; TEMP 97.7; O2SAT 92
[2017-06-12] MEDS: INSULIN ASPART SUPPLEMENTAL SCALE SQ SCH ×3 (08:00→17:31)
[2017-06-12] MEDS: FUROSEMIDE 40 MG TAB PO SCH (09:00)
[2017-06-12] MEDS: DOCUSATE SODIUM 100 MG/10 ML UDC PO SCH ×2 (10:01→21:00)
[2017-06-12] MEDS: SODIUM CHLORIDE 0.9% FLUSH 10 ML FLUSH IV FLUSH SCH (10:01)
[2017-06-12] MEDS: CHLORHEXIDINE 0.12% (ORAL KIT) 15 ML CUP MT SCH ×2 (10:01→20:00)
[2017-06-12] MEDS: predniSONE 20 MG TAB PO SCH (10:01)
[2017-06-12] MEDS: BISACODYL 10 MG SUPP RECTAL SCH (10:02)
[2017-06-12] MEDS: COLLAGENASE OINT 30 GM TUBE TOPICAL SCH (10:02)
[2017-06-12] MEDS: FONDAPARINUX SODIUM 7.5 MG/0.6 ML SYRINGE SQ SCH (10:02)
[2017-06-12] MEDS: LISINOPRIL 5 MG TAB PO SCH (10:02)
[2017-06-12] MEDS: QUEtiapine FUMARATE 25 MG TAB PO SCH (10:03)
[2017-06-12] MEDS: POTASSIUM CHLORIDE 20 MEQ CONTROLLED RELEASE TAB PO SCH (10:03)
[2017-06-12] MEDS: CARVEDILOL 6.25 MG TAB PO SCH (10:04)
[2017-06-12] MEDS: DILTIAZEM-CD 120 MG CAP ER PO SCH (10:04)
[2017-06-12 12:00] VITALS: BP 99/63; PULSE 98; RESP 19; TEMP 96.7; O2SAT 92
--- NOTE | 2017-06-12 14:22 | HHI.HCPN ---
Reason for visit a. To assist with evaluation and management of symptoms including: shortness of breath, debility. b. To assist medical decision maker(s) with: better understanding of current medical conditions; weighing benefits/burdens of medical treatment options; making medical treatment decisions. . Subjective/Interval History Palliative care follow-up for further clarifications of goals of care. Patient seen by psychiatry on 06/07, he was found not capacitated for medical decision- making secondary to episodic delirium. Patient currently on Seroquel 25mg twice a day. Patient seen in his room, he was resting in bed in no acute distress. Calm, verbal but not wishing to engage much with visit. Patient verbalized wishing to go home. Reviewed with patient recommendation for rehabilitation for physical strengthening. Patient reports that he is tired of people telling him that. Patient intermittently anxious, irritable. Has been refusing medications and participation with OT today. Patient remains afebrile, stable hemodynamically. He was seen tolerating room air with no dyspnea reported. Received telephone call from patient's cousin/healthcare surrogate Mrs. Saavedra. Medical update provided. Cousin wishing for patient to be discharged to rehabilitation for physical strengthening. Case management notes reviewed, notified cousin that case management is actively working on discharge plans, multiple SNF in the area reviewing patient. . Family/friend interactions See interval note. . Advance Directives Health Care Surrogate: Copy in medical record Advance Directive Specifics Date completed: 05/15/2017. . Health Care Surrogate(s): cousin Kathie Saavedra listed as healthcare surrogate decision maker. Alternate surrogate is cousin Dee Taylor. . Documented care wishes: Patient verbalized that in the event of being placed on life support, he would only allow 2 days and if no recovery, okay to "let him go" . Significant change in goals: Goals remain aggressive short of no resuscitation. . Objective Vital Signs Date Time Temp Pulse Resp B/P (MAP) Pulse Ox O2 Delivery O2 Flow Rate FiO2 06/12/17 12:00 96.7 98 19 99/63 (75) 92 06/12/17 08:00 0.50 06/12/17 08:00 97.7 81 19 126/77 (93) 92 06/11/17 20:00 97.1 90 18 100/52 (68) 94 06/11/17 19:00 92 Nasal Cannula 0.50 06/11/17 16:00 96.2 67 18 106/67 (80) 92 Intake & Output 06/12/17 06/12/17 07:00 19:00 Output Total 735 ml Balance -735 ml Output Urine Total 735 ml # Voids 2 1 Physical Exam CONSTITUTIONAL/GENERAL: This is an adequately nourished patient, in no apparent distress. TUBES/LINES/DRAINS: PIV. Nasal cannula. SKIN: No jaundice, rashes. Skin warm/dry. Nonhealing sores to bilateral lower extremities. Very dry skin. Dressing left lower extremity, dry and intact. CARDIOVASCULAR: Regular rate and rhythm. Peripheral pulses symmetric. Venous stasis to bilateral lower extremities. RESPIRATORY/CHEST: Symmetric, unlabored respirations on NC. Diminished breath sounds bilaterally- O2 via nasal cannula 0.5L GASTROINTESTINAL: Abdomen large, round, soft. Active bowel sounds. GENITOURINARY: Without palpable bladder distension. MUSCULOSKELETAL: Extremities without clubbing. No edema. NEUROLOGICAL: awake, oriented to self, place and situation. PSYCHIATRIC: Irritable, anxious. . Diagnostic Tests Result Diagram: 06/09/17 1010 Procedures * 05/20/17 -endotracheally intubated * 05/27/17 -medical extubation . Assessment and Plan Disease Oriented Problem List: (1) COPD (chronic obstructive pulmonary disease) (2) Systolic heart failure (3) Small bowel obstruction (4) Cardiomyopathy (5) Leg ulcer, left (6) Acute hypoxemic respiratory failure Symptom Scale: (1) Abdominal pain 0-10 Scale: Unable to quantify (2) Dyspnea 0-10 Scale: Unable to quantify Pertinent Non-Medical Issues Psychosocial: Patient is single, never . No children. [employer] , disabled secondary to PTSD. Patient was born and raised in [place]. Highest level of education is high school. Patient has 2 siblings in the area, one cousin that lives in [place]. Spiritual: No gnosticist affiliation. Legal: Advance directives completed. Ethical issues impacting care: No ethical issues identified. . Important Contacts HCS/cousin Kathie Saavedra . Alternate surrogate/cousin Dee Taylor . . Prognosis Mr. Rocha is a 72-year-old male with a medical history significant for CHF, COPD, atrial fibrillation, medication noncompliance. Patient with significant progression of cardiopulmonary disease. He is O2 dependent, EF of 20%. Patient admitted for small bowel obstruction, somewhat improving. However, patient remains at high risk for further complications, continued decline and . Patient appears hospice appropriate should he elects comfort-directed care given significant cardiopulmonary disease. . Code Status: No Code Plan * CODE STATUS: DNR/DNI. Community DNR signed. * HEALTHCARE DECISION-MAKING: Patient with intermittent participation in goals of care. Fair/poor insight into his complicated medical condition. Has been seen by psychiatry, not capacitated as of 06/07 secondary to episodic delirium. Advance directives completed. Patient has designated is cousin Kathie Saavedra as healthcare surrogate decision maker, alternate is cousin Dee Taylor. Cousin Mrs. Saavedra has accepted this role. * GOALS OF CARE: Goals remain aggressive short of NO resuscitation. Patient's cousin/healthcare surrogate decision maker Kathie Saavedra wishing for patient to be discharged to rehabilitation for physical strengthening. Ongoing discharge plans by case management, patient currently being considered by multiple SNF in the area. . * SYMPTOMS: = Shortness of breath: Secondary to COPD, CHF exacerbation. Currently tolerating RA. = Debility: chronic. PT/OT following, PT at rehab recommended, however, patient refusing. =Agitation/irritability: Currently on Seroquel 25 mg twice daily. Patient with frequent episodes, refusing medications and participation in PT/OT. Patient may benefit from increasing Seroquel morning dose from 25 mg to 50 mg, keep PM dose at 25 mg. * Palliative care contact information has been provided to patient and family. * Palliative care will continue to follow up as needed for further clarification of goals of care as patient's clinical course continues to evolve. . Time Spent Total Floor Time (mins): 23 (Total time to include review medical records, physical exam, telephone conversation with patient's cousin/HCS. ) >50% Counseling/Coord of Care: Yes Attestation To help prompt me to consider important information that might be impacting today's encounter and assessment, information from prior notes written by myself or my colleagues may have been "brought forward" into today's note. My signature on this note, however, is an attestation that I personally performed the exam, history, and/or decision-making noted today, and, unless otherwise indicated, the interactions with patient, family, and staff as well as the review of records all occurred today. I also attest that the listed assessment and stated plan reflect my best clinical judgment today based on the combination of historical information, prior notes, and today's exam/ interactions. When time spent is documented, it refers only to time spent today by the signer, or if indicated, combined time spent today by collaborating physician/nurse practitioner. Areli Dunaway Jun 12, 2017 14:22
[2017-06-12 16:00] VITALS: BP 116/59; PULSE 75; RESP 19; TEMP 96.1; O2SAT 93
[2017-06-12 20:02] VITALS: BP 142/74; PULSE 112; RESP 24; TEMP 102; O2SAT 82
[2017-06-13] VITALS (7 sets, daily range): BP systolic 79–134; BP diastolic 50–90; PULSE 75–120; RESP 18–22; TEMP 96.9–102.4; O2SAT 90–95
[2017-06-13] MEDS: QUEtiapine FUMARATE 25 MG TAB PO SCH ×3 (00:41→21:00)
[2017-06-13] MEDS: POTASSIUM CHLORIDE 20 MEQ CONTROLLED RELEASE TAB PO SCH ×3 (00:41→21:00)
[2017-06-13] MEDS: predniSONE 20 MG TAB PO SCH ×3 (00:41→21:00)
[2017-06-13] MEDS: CARVEDILOL 6.25 MG TAB PO SCH ×3 (00:42→21:00)
[2017-06-13] MEDS: SODIUM CHLORIDE 0.9% FLUSH 10 ML FLUSH IV FLUSH SCH ×3 (00:42→21:00)
[2017-06-13] MEDS: INSULIN ASPART SUPPLEMENTAL SCALE SQ SCH ×5 (00:55→21:00)
[2017-06-13] MEDS ORDERED: ACETAMINOPHEN 325 MG TAB PO PRN (02:00)
[2017-06-13 05:09] LABS: AMORPHOUS SEDIMENT, URINE RARE; BILIRUBIN, URINE NEG (NEG); BLOOD, URINE NEG (NEG); GLUCOSE,URINE NEG (NEG); KETONE, URINE NEG (NEG); NITRITE,URINE NEG (NEG); PH, URINE 8.5 (5.0-8.5); SQUAMOUS EPITHELIAL CELL URINE 4 /hpf (0-5); URINE COLOR YELLOW (YELLW/STRAW); URINE LEUKOCYTE ESTERASE NEG (NEG)
[2017-06-13] MEDS: CHLORHEXIDINE 0.12% (ORAL KIT) 15 ML CUP MT SCH ×2 (08:00→20:00)
[2017-06-13] MEDS: DOCUSATE SODIUM 100 MG/10 ML UDC PO SCH ×2 (09:00→21:00)
[2017-06-13] MEDS: COLLAGENASE OINT 30 GM TUBE TOPICAL SCH (09:00)
[2017-06-13] MEDS: BISACODYL 10 MG SUPP RECTAL SCH (09:00)
--- NOTE | 2017-06-13 10:24 | HHI.PR ---
Subjective Remarks Late entry for date of service 06/12/17. Nursing denies any deterioration since last night. Patient denies having any eye pain this morning. Objective Vital Signs Date Time Temp Pulse Resp B/P (MAP) Pulse Ox O2 Delivery O2 Flow Rate FiO2 06/13/17 03:02 95 Simple Mask 8.00 06/13/17 03:00 90 Nasal Cannula 5.00 06/13/17 00:59 102.4 120 22 134/90 (105) 92 06/13/17 00:30 92 Room Air 06/12/17 20:27 21 06/12/17 20:02 102.0 112 24 142/74 (96) 82 06/12/17 16:00 96.1 75 19 116/59 (78) 93 06/12/17 12:00 96.7 98 19 99/63 (75) 92 I/O 06/12/17 06/12/17 06/12/17 06/13/17 06/13/17 06/13/17 07:00 15:00 23:00 07:00 15:00 23:00 Intake Total 1200 ml 80 ml Output Total 410 ml 450 ml 250 ml Balance -410 ml 750 ml -170 ml Intake Oral 1200 ml 80 ml Output Urine Total 410 ml 450 ml 250 ml # Voids 1 Result Diagram: 06/09/17 1010 Objective Remarks Unlabored breathing, clear lungs bilaterally, Calm demeanor this morning, very mild bilateral conjunctivitis A/P Assessment and Plan Weakness and dependency on ADLs - Patient is most appropriate for significant and stable for discharge at this time to sniff. Per psychiatry he lacks capacity. Chronic systolic congestive heart failure with exacerbation: Continue Lasix, lisinopril, Coreg, long-acting Cardizem. Aldactone on hold for relative hypotension. Atrial fibrillation: Continue diltiazem. Diabetes mellitus: Monitor Accu-Cheks and cover with sliding scale insulin. Agitation: Likely secondary to delirium. Ativan for severe symptoms. Continue Seroquel twice daily. Intermittently refusing meds/labs. Appreciate psych and neuropsych input. Thrombocytopenia: stable. will resume lovenox Irritant conjunctivitis - improved since yesterday, monitor DVT prophylaxis: SCDs. Resolved problems: Hemoptysis: Resolved. Appreciate pulmonology recommendations. CAP: s/p tx Acute hypoxemic respiratory failure: resolved. Patient was intubated on 05/20/17 and extubated on 05/27/17. Now tolerating oxygen per nasal cannula. Pulmonology signed off. Continue prednisone, bronchodilators. Small bowel obstruction: Resolved, continue pured diet per speech therapy. Continue bowel regimen. Discharge Planning Still awaiting family member to help make decision regarding placement as the patient lacks capacity per psychiatry Emir Flowers MD Jun 13, 2017 10:24
--- NOTE | 2017-06-13 10:27 | HHI.PR ---
Subjective Remarks Nursing reports that the patient did have a fever last night and now is requiring up to 4 L of oxygen which is a substantial change. There is a pulse ox of 80% charted. Patient has been refusing medications intermittently he has no designated healthcare surrogate advocate. Patient gets extremely frustrated and starts yelling and cursing when I informed him that his health declining and that we do not want him to refuse blood work (refused blood cultures that were ordered overnight close). Objective Vital Signs Date Time Temp Pulse Resp B/P (MAP) Pulse Ox O2 Delivery O2 Flow Rate FiO2 06/13/17 03:02 95 Simple Mask 8.00 06/13/17 03:00 90 Nasal Cannula 5.00 06/13/17 00:59 102.4 120 22 134/90 (105) 92 06/13/17 00:30 92 Room Air 06/12/17 20:27 21 06/12/17 20:02 102.0 112 24 142/74 (96) 82 06/12/17 16:00 96.1 75 19 116/59 (78) 93 06/12/17 12:00 96.7 98 19 99/63 (75) 92 I/O 06/12/17 06/12/17 06/12/17 06/13/17 06/13/17 06/13/17 07:00 15:00 23:00 07:00 15:00 23:00 Intake Total 1200 ml 80 ml Output Total 410 ml 450 ml 250 ml Balance -410 ml 750 ml -170 ml Intake Oral 1200 ml 80 ml Output Urine Total 410 ml 450 ml 250 ml # Voids 1 Result Diagram: 06/09/17 1010 Objective Remarks Frustrated mood, is talking so much that I am unable to adequately assess his breath sounds and he will not slow his speech down or calm down for me to do so Unlabored breathing, on nasal cannula A/P Assessment and Plan Acute hypoxic respiratory failure -We will consider CT chest Angio- since the patient is refusing his medications intermittently including Arixtra. If this is unobtainable, will consider obtaining portable chest x-ray. Ordering CBC, reattempting blood cultures. Will order for vancomycin and aztreonam to be started after blood cultures are drawn, unknown allergy to penicillin. Agitation -At this time the patient does not have capacity to refuse medical intervention , we will administer Haldol and reattempt drawing blood cultures. Chronic systolic congestive heart failure with exacerbation: Continue Lasix, lisinopril, Coreg, long-acting Cardizem. Aldactone on hold for relative hypotension. Atrial fibrillation: Continue diltiazem. Diabetes mellitus: Monitor Accu-Cheks and cover with sliding scale insulin. Agitation: Likely secondary to delirium. Ativan for severe symptoms. Continue Seroquel twice daily. Intermittently refusing meds/labs. Appreciate psych and neuropsych input. Thrombocytopenia: stable. On Arixtra per hematology Irritant conjunctivitis - improved since yesterday, monitor Weakness and dependency on ADLs - Patient is most appropriate for sniff. Per psychiatry he lacks capacity. DVT prophylaxis: SCDs. Addendum: Verified palliative care that the patient's cousin Ms. Mendez is his healthcare surrogate. I discussed case with her regarding further interventions and sedation if warranted to obtain more blood work and diagnostic assessments given the patient's deterioration. Ms. Saavedra says she did not feel comfortable making these decisions but ultimately did say to do whatever "you have to do to keep him stable" and that she will think about further decisions as they come about. Resolved problems: Hemoptysis: Resolved. Appreciate pulmonology recommendations. CAP: s/p tx Acute hypoxemic respiratory failure: resolved. Patient was intubated on 05/20/17 and extubated on 05/27/17. Now tolerating oxygen per nasal cannula. Pulmonology signed off. Continue prednisone, bronchodilators. Small bowel obstruction: Resolved, continue pured diet per speech therapy. Continue bowel regimen. Discharge Planning Declining health, nursing instructed to contact palliative care to obtain inpatient healthcare surrogate decision maker Emir Flowers MD Jun 13, 2017 10:27
[2017-06-13] MEDS ORDERED: HALOPERIDOL LACTATE 5 MG/ML AMP IM ONE (10:30)
[2017-06-13] MEDS ORDERED: Vancomycin Consult Pharmacy 1 EA OTHER SCH (10:30)
[2017-06-13] MEDS: LISINOPRIL 5 MG TAB PO SCH (11:02)
[2017-06-13] MEDS: FUROSEMIDE 40 MG TAB PO SCH (11:02)
[2017-06-13] MEDS: FONDAPARINUX SODIUM 7.5 MG/0.6 ML SYRINGE SQ SCH (11:04)
[2017-06-13] MEDS: DILTIAZEM-CD 120 MG CAP ER PO SCH (11:06)
[2017-06-13] MEDS: AZTREONAM INJ 2,000 MG in SODIUM CHLORIDE 0.9% INJ 100 ML IV SCH ×2 (14:12→20:00)
[2017-06-13] MEDS: VANCOMYCIN INJ 1,250 MG in SODIUM CHLOR 0.9% 250 ML INJ 250 ML IV SCH (14:13)
[2017-06-13 15:08] LABS: HEMATOCRIT 42.3 % (39.0-51.0); HEMOGLOBIN 13.9 GM/DL (13.0-17.0); MEAN CELL VOLUME 93.1 FL (80.0-100.0); MEAN CORPUSCULAR HEMOGLOBIN 30.7 PG (27.0-34.0); MEAN PLATELET VOLUME 9.1 FL (7.0-11.0); PLATELET COUNT 32 TH/MM3 (150-450); RED BLOOD COUNT 4.54 MIL/MM3 (4.50-5.90); RED CELL DISTRIBUTION WIDTH 21.3 % (11.6-17.2); WHITE BLOOD COUNT 4.9 TH/MM3 (4.0-11.0)
--- NOTE | 2017-06-13 16:20 | HHI.HCPN ---
Reason for visit a. To assist with evaluation and management of symptoms including: shortness of breath, debility. b. To assist medical decision maker(s) with: better understanding of current medical conditions; weighing benefits/burdens of medical treatment options; making medical treatment decisions. . Subjective/Interval History Palliative care follow-up for further clarifications of goals of care. Patient seen by psychiatry on 06/07, he was found not capacitated for medical decision- making secondary to episodic delirium. Patient with fever overnight, max temperature 102.4. SBP in the mid 80s, increased oxygen requirement up to 8 L earlier today, currently tolerating 2 L via nasal cannula. Laboratory workup today revealing WBC 4.9, Hgb 13.9, platelet count 32. UA negative for nitrates or leukocytes. Blood culture obtained today. Chest x-ray order, however, patient with frequent periods of agitation/restlessness. Currently on Seroquel 25 mg twice daily. Patient seen in his room, resting in bed in no acute distress. He was found doing self "leg exercises". Unlabored breathing noted, tolerating O2 via nasal cannula 2 L. Patient denies pain, nausea/vomiting or abdominal discomfort. Restless/agitated with visit, not wishing to discuss goals of care. Case discussed with Dr. Flowers. Telephone conversation with cousin/healthcare surrogate Mrs. Saavedra. Medical update provided. Mrs. Saavedra verbalized her willingness to participating medical decision making, electing to continue serving as healthcare surrogate decision maker. Asper healthcare surrogate Mrs. Burnett, goal of therapy remain aggressive short of NO resuscitation ( patient remains DNR/DNI). Goal is for patient to discharge to rehabilitation for physical strengthening. Case discussed with bedside NAFISA Guerrier. . Family/friend interactions See interval note. . Advance Directives Health Care Surrogate: Copy in medical record Advance Directive Specifics Date completed: 05/15/2017. . Health Care Surrogate(s): cousin Kathie Saavedra listed as healthcare surrogate decision maker. Alternate surrogate is cousin Dee Taylor. . Documented care wishes: Patient verbalized that in the event of being placed on life support, he would only allow 2 days and if no recovery, okay to "let him go" . Significant change in goals: Goal of therapy remain unchanged. . Objective Vital Signs Date Time Temp Pulse Resp B/P (MAP) Pulse Ox O2 Delivery O2 Flow Rate FiO2 06/13/17 14:06 Nasal Cannula 2.00 06/13/17 12:00 96.9 89 20 87/54 (65) 95 06/13/17 08:00 98.8 83 20 87/61 (70) 94 06/13/17 08:00 93 Nasal Cannula 3.00 06/13/17 03:02 95 Simple Mask 8.00 06/13/17 03:00 90 Nasal Cannula 5.00 06/13/17 00:59 102.4 120 22 134/90 (105) 92 06/13/17 00:30 92 Room Air 06/12/17 20:27 21 06/12/17 20:02 102.0 112 24 142/74 (96) 82 Intake & Output 06/13/17 06/13/17 06:59 18:59 Intake Total 80 ml Output Total 250 ml Balance -170 ml Intake Oral 80 ml Output Urine Total 250 ml Physical Exam CONSTITUTIONAL/GENERAL: This is an adequately nourished patient, in no apparent distress. TUBES/LINES/DRAINS: PIV. Nasal cannula. SKIN: No jaundice, rashes. Skin warm/dry. Nonhealing sores to bilateral lower extremities. Very dry skin. Dressing left lower extremity, dry and intact. CARDIOVASCULAR: Regular rate and rhythm. Peripheral pulses symmetric. Venous stasis to bilateral lower extremities. RESPIRATORY/CHEST: Symmetric, unlabored respirations on NC. Diminished breath sounds bilaterally- O2 via nasal cannula 2L GASTROINTESTINAL: Abdomen large, round, soft. Active bowel sounds. GENITOURINARY: Without palpable bladder distension. MUSCULOSKELETAL: Extremities without clubbing. No edema. NEUROLOGICAL: awake, oriented to self. PSYCHIATRIC: Irritable, anxious. . Diagnostic Tests Laboratory Laboratory Tests Test 06/13/17 04:16 06/13/17 14:11 Urine Color YELLOW (YELLW/STRAW) Urine Turbidity CLOUDY (CLEAR) Urine pH 8.5 (5.0-8.5) Urine Specific [place] 1.016 (1.002-1.035) Urine Protein TRACE mg/dL (NEG-TRACE) Urine Glucose (UA) NEG mg/dL (NEG) Urine Ketones NEG mg/dL (NEG) Urine Occult Blood NEG (NEG) Urine Nitrite NEG (NEG) Urine Bilirubin NEG (NEG) Urine Urobilinogen 2.0 MG/DL (LESS THAN Urine Leukocyte Esterase NEG (NEG) Urine RBC 1 /hpf (0-3) Urine WBC 3 /hpf (0-5) Urine Squamous Epithelial Cells 4 /hpf (0-5) Urine Amorphous Sediment RARE Microscopic Urinalysis Comment CULT NOT INDICATED White Blood Count 4.9 TH/MM3 (4.0-11.0) Red Blood Count 4.54 MIL/MM3 (4.50-5.90) Hemoglobin 13.9 GM/DL (13.0-17.0) Hematocrit 42.3 % (39.0-51.0) Mean Corpuscular Volume 93.1 FL (80.0-100.0) Mean Corpuscular Hemoglobin 30.7 PG (27.0-34.0) Mean Corpuscular Hemoglobin Concent 33.0 % (32.0-36.0) Red Cell Distribution Width 21.3 % (11.6-17.2) Platelet Count 32 TH/MM3 (150-450) Mean Platelet Volume 9.1 FL (7.0-11.0) Result Diagram: 06/13/17 1411 06/09/17 1010 Microbiology Microbiology Date/Time Source Procedure Growth Status 06/13/17 14:11 Blood Peripheral Aerobic Blood Culture Pending Received 06/13/17 14:11 Blood Peripheral Anaerobic Blood Culture Pending Received Procedures * 05/20/17 -endotracheally intubated * 05/27/17 -medical extubation . Assessment and Plan Disease Oriented Problem List: (1) COPD (chronic obstructive pulmonary disease) (2) Systolic heart failure (3) Small bowel obstruction (4) Cardiomyopathy (5) Leg ulcer, left (6) Acute hypoxemic respiratory failure Symptom Scale: (1) Abdominal pain 0-10 Scale: Unable to quantify (2) Dyspnea 0-10 Scale: Unable to quantify Pertinent Non-Medical Issues Psychosocial: Patient is single, never . No children. [employer] , disabled secondary to PTSD. Patient was born and raised in [place]. Highest level of education is high school. Patient has 2 siblings in the area, one cousin that lives in [place]. Spiritual: No episcopal affiliation. Legal: Advance directives completed. Ethical issues impacting care: No ethical issues identified. . Important Contacts HCS/cousin Vázquez Tseringmarcos Saavedra . Alternate surrogate/cousin Dee Taylor . . Prognosis Mr. Rocha is a 72-year-old male with a medical history significant for CHF, COPD, atrial fibrillation, medication noncompliance. Patient with significant progression of cardiopulmonary disease. He is O2 dependent, EF of 20%. Patient admitted for small bowel obstruction, somewhat improving. However, patient remains at high risk for further complications, continued decline and . Patient appears hospice appropriate should he elects comfort-directed care given significant cardiopulmonary disease. . Code Status: No Code Plan * CODE STATUS: DNR/DNI. Community DNR signed. * HEALTHCARE DECISION-MAKING: Patient with intermittent participation in goals of care. Fair/poor insight into his complicated medical condition. Has been seen by psychiatry, not capacitated as of 06/07 secondary to episodic delirium. Advance directives completed. Patient has designated is cousin Vázquez Tsering Saavedra as healthcare surrogate decision maker, alternate is cousin Dee Taylor. Cousin Mrs. Saavedra has accepted this role. * GOALS OF CARE: 06/13/17 -Telephone conversation with cousin/healthcare surrogate Mrs. Saavedra. Medical update provided. Mrs. Saavedra verbalized her willingness to participating medical decision making, electing to continue serving as healthcare surrogate decision maker. As per healthcare surrogate Mrs. Mendez, goal of therapy remains aggressive short of NO resuscitation ( patient remains DNR/DNI). Goal is for patient to discharge to rehabilitation for physical strengthening. . * SYMPTOMS: = Shortness of breath: Secondary to COPD, CHF exacerbation. Decompensated overnight with increased oxygen requirement, improving this afternoon. Currently tolerating O2 via nasal cannula 2 L. = Debility: chronic. PT/OT following, PT at rehab recommended, however, patient refusing. = Agitation/irritability: Currently on Seroquel 25 mg twice daily. Patient with frequent episodes, refusing medications and participation in PT/OT. Patient may benefit from increasing Seroquel morning dose from 25 mg to 50 mg, keep PM dose at 25 mg. * Case discussed with Dr. Flowers and bedside RN Chey. * Palliative care contact information has been provided to patient and family. * Palliative care will continue to follow up as needed for further clarification of goals of care as patient's clinical course continues to evolve. . Time Spent Total Floor Time (mins): 31 (Total time to include review medical records, physical exam, goals of care conversation with healthcare surrogate, case discussion with attending and bedside RN.) >50% Counseling/Coord of Care: Yes Attestation To help prompt me to consider important information that might be impacting today's encounter and assessment, information from prior notes written by myself or my colleagues may have been "brought forward" into today's note. My signature on this note, however, is an attestation that I personally performed the exam, history, and/or decision-making noted today, and, unless otherwise indicated, the interactions with patient, family, and staff as well as the review of records all occurred today. I also attest that the listed assessment and stated plan reflect my best clinical judgment today based on the combination of historical information, prior notes, and today's exam/ interactions. When time spent is documented, it refers only to time spent today by the signer, or if indicated, combined time spent today by collaborating physician/nurse practitioner. Areli Dunaway Jun 13, 2017 16:20
[2017-06-14] VITALS: BP 80/58; PULSE 61; RESP 17; TEMP 98.3; O2SAT 92
[2017-06-14] MEDS: VANCOMYCIN INJ 1,250 MG in SODIUM CHLOR 0.9% 250 ML INJ 250 ML IV SCH ×2 (01:00→14:10)
[2017-06-14 04:00] VITALS: BP 77/50; PULSE 86; RESP 18; TEMP 98.4; O2SAT 97
[2017-06-14] MEDS: AZTREONAM INJ 2,000 MG in SODIUM CHLORIDE 0.9% INJ 100 ML IV SCH ×3 (04:00→21:38)
[2017-06-14 08:00] VITALS: BP 94/59; PULSE 65; RESP 18; TEMP 96.5; O2SAT 92
[2017-06-14] MEDS: CHLORHEXIDINE 0.12% (ORAL KIT) 15 ML CUP MT SCH ×2 (08:00→20:00)
[2017-06-14] MEDS: INSULIN ASPART SUPPLEMENTAL SCALE SQ SCH ×4 (08:00→21:35)
--- NOTE | 2017-06-14 08:32 | HHI.PR ---
Subjective Remarks Follow-up for fever, shortness of breath Patient had shortness of breath yesterday, now feels better, patient says he feels good. Difficult to understand, poor historian, not very cooperative. Denies any pain. Denies any shortness of breath. Denies any chest pain. Discussed with nursing. Objective Vitals Vital Signs Date Time Temp Pulse Resp B/P (MAP) Pulse Ox O2 Delivery O2 Flow Rate FiO2 06/14/17 04:00 98.4 86 18 77/50 (59) 97 06/14/17 00:00 98.3 61 17 80/58 (65) 92 06/13/17 20:00 98.2 86 18 88/50 (63) 92 06/13/17 18:00 98.0 75 20 79/54 (62) 93 06/13/17 14:06 Nasal Cannula 2.00 06/13/17 12:00 96.9 89 20 87/54 (65) 95 I/O 06/13/17 06/13/17 06/13/17 06/14/17 06/14/17 06/14/17 07:00 15:00 23:00 07:00 15:00 23:00 Intake Total 80 ml 100 ml 970 ml 360 ml Output Total 250 ml 500 ml 950 ml Balance -170 ml 100 ml 470 ml -590 ml Intake Oral 80 ml 720 ml 360 ml IV Total 100 ml 250 ml Output Urine Total 250 ml 500 ml 950 ml Result Diagram: 06/13/17 1411 Objective Remarks Not in distress, eating lunch Merigold conjunctivae, anicteric Regular rate and rhythm No wheezing, occasional rhonchi. Awake, alert, oriented to place, person, time. Not very cooperative. Procedures 05/20/17 intubation 05/21/17 central line placement, right subclavian A/P Assessment and Plan This is a 72-year-old male, initially admitted to the intensive care unit for shortness of breath, found to have pneumonia,, extubated 05/27/2017 Acute hypoxic respiratory failure, recent pneumonia-shortness of breath better, patient refusing interventions. Will check a chest x-ray portable. Blood cultures drawn. Continue vancomycin and aztreonam. Follow-up culture results. Had a fever 102.4 yesterday per RN. On 4 L of oxygen. Check sputum culture Hypertension-could be from infection versus dehydration, stop lisinopril, and Lasix. Check BMP tomorrow. Agitation-At this time the patient does not have capacity to refuse medical intervention, Haldol 5 mg IV every 8 as needed. Psychiatry following Weakness and dependency on ADLs - Patient is most appropriate for significant and stable for discharge at this time to shelter. Per psychiatry he lacks capacity. Chronic systolic congestive heart failure with exacerbation: Continue Coreg, long-acting Cardizem. Aldactone on hold for relative hypotension. Will hold lisinopril and Lasix today. Atrial fibrillation: Continue diltiazem. Diabetes mellitus: Monitor Accu-Cheks and cover with sliding scale insulin. Bilateral lower extremity DVT-on Arixtra, hold today because of thrombocytopenia Thrombocytopenia: stable. Possibly secondary to hemolysis with low haptoglobin and elevated LDH. Monitor, H IT negative, LUIS not done. Per hematology, hold Arixtra if platelets less than 50, it is 32 today, reconsult hematology, hold Arixtra for now. No hemoptysis. Currently acquired pneumonia-resolved, status post treatment. Acute hypoxemic respiratory failure: resolved. Patient was intubated on 05/20/17 and extubated on 05/27/17. Now tolerating oxygen per nasal cannula. Continue to decrease prednisone, continue bronchodilators. Small bowel obstruction: Resolved, continue pured diet per speech therapy. Continue bowel regimen. DVT prophylaxis: SCDs. Hold Arixtra as above. Discharge Planning Declining health, nursing instructed to contact palliative care to obtain inpatient healthcare surrogate decision maker Marita David MD Jun 14, 2017 08:32
[2017-06-14] MEDS: COLLAGENASE OINT 30 GM TUBE TOPICAL SCH (09:00)
[2017-06-14] MEDS: LISINOPRIL 5 MG TAB PO SCH (09:00)
[2017-06-14] MEDS: BISACODYL 10 MG SUPP RECTAL SCH (09:00)
[2017-06-14] MEDS: SODIUM CHLORIDE 0.9% FLUSH 10 ML FLUSH IV FLUSH SCH ×2 (09:00→21:37)
[2017-06-14] MEDS: CARVEDILOL 6.25 MG TAB PO SCH ×2 (10:18→21:37)
[2017-06-14] MEDS: POTASSIUM CHLORIDE 20 MEQ CONTROLLED RELEASE TAB PO SCH ×2 (10:18→21:37)
[2017-06-14] MEDS: QUEtiapine FUMARATE 25 MG TAB PO SCH ×2 (10:18→21:37)
[2017-06-14] MEDS: DILTIAZEM-CD 120 MG CAP ER PO SCH (10:18)
[2017-06-14] MEDS: FUROSEMIDE 40 MG TAB PO SCH (10:19)
[2017-06-14] MEDS: predniSONE 20 MG TAB PO SCH ×2 (10:19→21:37)
[2017-06-14] MEDS: FONDAPARINUX SODIUM 7.5 MG/0.6 ML SYRINGE SQ SCH (10:20)
[2017-06-14] MEDS: DOCUSATE SODIUM 100 MG/10 ML UDC PO SCH ×2 (10:21→21:36)
[2017-06-14] MEDS: RESP: ALBUTEROL 2.5 MG/IPRATROPIUM 0.5 MG NEB (SCH) NEB ×2 (13:30→23:31)
--- NOTE | 2017-06-14 13:37 | RADRPT ---
EXAM DATE/TIME: 06/14/2017 13:15 [facility] COMPARISON: CHEST SINGLE AP, May 26, 2017, 4:50. INDICATIONS : Shortness of breath. MEDICAL HISTORY : Chronic obstructive pulmonary disease. Cardiovascular disease. Hypertension. SURGICAL HISTORY : None. ENCOUNTER: Initial ACUITY: 2 days PAIN SCORE: 0/10 LOCATION: Bilateral chest FINDINGS: A single AP erect portable view of the chest was obtained and demonstrates interval extubation and re moval of nasogastric tube. There is mild patchy opacity at the lung bases with no consolidation or ef fusion. The heart size is within normal limits with no evidence of pulmonary edema. Mild chronic monteiro ges are present in the aorta. CONCLUSION: 1. Interval extubation and removal of nasogastric tube. 2. Mild patchy opacity at the lung bases likely representing atelectasis. Mitch Crockett MD on June 14, 2017 at 13:34 Board Certified Radiologist. This report was verified electronically.
--- NOTE | 2017-06-14 15:41 | PD.ONC.PN ---
Subjective Subjective Remarks Hematology was reconsulted to evaluate thrombocytopenia. C/o sitting in the chair too long. Not cooperative with interview and exam. Do not want to answer my questions. No report of bleeding. Objective Data Date Time Temp Pulse Resp B/P (MAP) Pulse Ox O2 Delivery O2 Flow Rate FiO2 06/14/17 08:00 96.5 65 18 94/59 (71) 92 06/14/17 04:00 98.4 86 18 77/50 (59) 97 06/14/17 00:00 98.3 61 17 80/58 (65) 92 06/13/17 20:00 98.2 86 18 88/50 (63) 92 06/13/17 18:00 98.0 75 20 79/54 (62) 93 06/14/17 06/14/17 06/14/17 07:00 15:00 23:00 Intake Total 360 ml Output Total 950 ml Balance -590 ml Result Diagram: 06/13/17 1411 Laboratory Results Laboratory Tests Test 06/14/17 13:51 Culture Results Microbiology Date/Time Source Procedure Growth Status 06/14/17 13:51 Blood Peripheral Aerobic Blood Culture Pending Received 06/14/17 13:51 Blood Peripheral Anaerobic Blood Culture Pending Received 06/13/17 14:11 Blood Peripheral Aerobic Blood Culture - Preliminary NO GROWTH IN 1 DAY Resulted 06/13/17 14:11 Blood Peripheral Anaerobic Blood Culture - Preliminary NO GROWTH IN 1 DAY Resulted Imaging Studies Last 24 hours Impressions Chest X-Ray 06/14/17 0000 Signed Impressions: Service Date/Time: Wednesday, June 14, 2017 13:15 - CONCLUSION: 1. Interval extubation and removal of nasogastric tube. 2. Mild patchy opacity at the lung bases likely representing atelectasis. Mitch Crockett MD Administered Medications Medications (Trade) Dose Ordered Sig/Decaon Route PRN Reason Start Time Stop Time Status Last Admin Dose Admin Sodium Chloride (NS Flush) 2 ml UNSCH PRN IV FLUSH FLUSH AFTER USING IV ACCESS 05/13/17 13:15 05/28/17 05:08 Sodium Chloride (NS Flush) 2 ml BID IV FLUSH 05/13/17 21:00 06/14/17 09:00 Ondansetron HCl (Zofran Inj) 4 mg Q6HR PRN IV PUSH nausea 05/13/17 13:15 05/28/17 10:36 Collagenase (Santyl Oint) 1 applic DAILY TOPICAL 05/15/17 09:00 06/09/17 09:39 Lisinopril (Prinivil) 2.5 mg DAILY PO 05/15/17 09:00 Future Hold 06/13/17 11:02 Albuterol/ Ipratropium (Duoneb Neb) 1 ampule Q2HR NEB PRN NEB dyspnea 05/14/17 15:45 05/28/17 11:08 Miscellaneous (Pill Splitter) 1 ea UNSCH PRN OTHER SEE LABEL COMMENTS 05/14/17 16:00 05/29/17 09:10 Bisacodyl (Dulcolax Supp) 10 mg DAILY RECTAL 05/16/17 09:00 06/08/17 15:12 Magnesium Hydroxide (Milk Of Magnesia Liq) 30 ml QID PRN PO CONSTIPATION 05/17/17 16:30 06/11/17 00:23 Chlorhexidine Gluconate (Peridex 0.12% Liq) 15 ml BID@08,20 MT 05/20/17 20:00 06/14/17 08:00 Docusate Sodium (Colace Liq) 100 mg BID PO 05/24/17 09:00 06/14/17 10:21 Prednisone (Deltasone) 20 mg BID PO 05/29/17 21:00 06/14/17 10:19 Insulin Aspart (NovoLOG SUPPLEMENTAL SCALE) 1 ACHS SLIDING SCALE SQ 05/30/17 17:00 06/14/17 14:08 Quetiapine Fumarate (SEROquel) 25 mg BID PO 06/01/17 13:45 06/14/17 10:18 Fondaparinux (Arixtra Inj) 7.5 mg Q24H SQ 06/04/17 09:00 Future Hold 06/14/17 10:20 Carvedilol (Coreg) 3.125 mg Q12HR PO 06/04/17 21:00 06/14/17 10:18 Diltiazem HCl (Cardizem Cd) 120 mg DAILY PO 06/05/17 09:00 06/14/17 10:18 Furosemide (Lasix) 40 mg DAILY PO 06/06/17 09:00 Future Hold 06/14/17 10:19 Potassium Chloride (KCl) 20 meq Q12HR PO 06/05/17 14:45 06/14/17 10:18 Acetaminophen (Tylenol) 650 mg Q4H PRN PO fever 06/13/17 02:00 06/13/17 02:48 Aztreonam 2000 mg/ Sodium Chloride 100 ml @ 200 mls/hr Q8H IV 06/13/17 12:00 06/14/17 12:00 Vancomycin HCl 1250 mg/Sodium Chloride 262.5 ml @ 250 mls/hr Q12H IV 06/13/17 13:00 06/14/17 14:10 Objective Remarks GENERAL: Sitting in chair, no acute distress. SKIN: Warm and dry. HEAD: Normocephalic. EYES: No scleral icterus. No injection or drainage. NECK: Supple, trachea midline. No JVD or lymphadenopathy. LYMPHATIC: No adenopathy. CARDIOVASCULAR: Regular rate and rhythm without murmurs. RESPIRATORY: Breath sounds equal bilaterally. No accessory muscle use. GASTROINTESTINAL: Abdomen soft, non-tender, nondistended. EXTREMITIES: No cyanosis, or edema. MUSCULOSKELETAL: Adequate muscle tone. NEUROLOGICAL: No obvious focal deficit. Awake, alert. PSYCHIATRIC: not cooperative with exam Assessment/Plan Problem List: (1) Thrombocytopenia ICD Codes: D69.6 - Thrombocytopenia, unspecified Plan: 06/14 Hematology was reconsulted b/c platelet down to 32K. No obvious bleeding. Last dose of Arixtra this morning. Had fever up to 102.4 yesterday and was started on vancomycin and aztreonem. The drop in platelet likely consumptive process and antibiotics. Will check DIC panel and monitor CBC in am. If platelet is stable, can continue Arixtra. No apparent progression of clots. -- likely due to recent illness: a consumptive process is the favored etiology --HIT negative --started on Arixtra on 06/04 for bilateral LE DVT + non-ambulatory status. --My threshold for stopping anticoagulation would be a platelet count of less than 50,000. --haptoglobin low, LDH elevated, consistent with hemolysis, hemoglobin, however remains normal. --fibrinogen low at 125. --hepatitis panel pending. (2) Leukocytosis ICD Codes: D72.829 - Elevated white blood cell count, unspecified Plan: --likely reactive. Now resolved. (3) History of DVT (deep vein thrombosis) ICD Codes: Z86.718 - Personal history of other venous thrombosis and embolism Status: Acute Plan: No new symptoms and no apparent progression of clots. (4) Atrial fibrillation ICD Codes: I48.91 - Unspecified atrial fibrillation Status: Chronic (5) COPD (chronic obstructive pulmonary disease) ICD Codes: J44.9 - Chronic obstructive pulmonary disease, unspecified Assessment 72y/o male with thrombocytopenia and history of bilateral lower extremity DVT. h/o COPD on chronic supplemental oxygen fibrillation, AFib on Coumadin, chronic systolic CHF with EF of 20%, bilateral lower extremity DVT, hypertension. Plan 1. Check DIC panel 2. monitor platelets 3. monitor hgb. Mao Maruqez MD Jun 14, 2017 15:41
[2017-06-14 19:30] VITALS: BP 113/60; PULSE 75; RESP 19; TEMP 97.4; O2SAT 95
[2017-06-14 19:36] LABS: HEMOGLOBIN 12.6 GM/DL (13.0-17.0); MEAN CELL VOLUME 92.7 FL (80.0-100.0); MEAN CORPUSCULAR HEMOGLOBIN 30.7 PG (27.0-34.0); MEAN CORPUSCULAR HGB CONC 33.1 % (32.0-36.0); MEAN PLATELET VOLUME 8.4 FL (7.0-11.0); RED CELL DISTRIBUTION WIDTH 20.6 % (11.6-17.2); WHITE BLOOD COUNT 4.5 TH/MM3 (4.0-11.0)
[2017-06-14 19:40] LABS: PLATELET COUNT 124 TH/MM3 (150-450)
[2017-06-15] VITALS: BP 94/66; PULSE 82; RESP 19; TEMP 97.7; O2SAT 93
[2017-06-15] MEDS ORDERED: PHARMACY ORDERED LAB ONE (00:45)
[2017-06-15] MEDS: VANCOMYCIN INJ 1,250 MG in SODIUM CHLOR 0.9% 250 ML INJ 250 ML IV SCH (01:51)
[2017-06-15] MEDS: AZTREONAM INJ 2,000 MG in SODIUM CHLORIDE 0.9% INJ 100 ML IV SCH ×3 (04:00→20:00)
[2017-06-15 08:00] VITALS: BP 129/74; PULSE 71; RESP 16; TEMP 97.6; O2SAT 92
[2017-06-15] MEDS: RESP: ALBUTEROL 2.5 MG/IPRATROPIUM 0.5 MG NEB (SCH) NEB ×3 (08:00→23:59)
[2017-06-15] MEDS: INSULIN ASPART SUPPLEMENTAL SCALE SQ SCH ×4 (08:00→21:00)
[2017-06-15] MEDS: CHLORHEXIDINE 0.12% (ORAL KIT) 15 ML CUP MT SCH ×2 (08:00→20:00)
[2017-06-15] MEDS: SODIUM CHLORIDE 0.9% FLUSH 10 ML FLUSH IV FLUSH SCH ×2 (09:00→21:00)
[2017-06-15] MEDS: DILTIAZEM-CD 120 MG CAP ER PO SCH (09:00)
[2017-06-15] MEDS: CARVEDILOL 6.25 MG TAB PO SCH ×2 (09:00→21:55)
[2017-06-15] MEDS: BISACODYL 10 MG SUPP RECTAL SCH (09:00)
[2017-06-15] MEDS: COLLAGENASE OINT 30 GM TUBE TOPICAL SCH (09:00)
[2017-06-15] MEDS: DOCUSATE SODIUM 100 MG/10 ML UDC PO SCH ×2 (09:00→21:00)
--- NOTE | 2017-06-15 09:29 | PD.ONC.PN ---
Subjective Subjective Remarks Afebrile overnight. Patient annoyed and tired of being in the hospital. No specific complaints offered. Objective Data Date Time Temp Pulse Resp B/P (MAP) Pulse Ox O2 Delivery O2 Flow Rate FiO2 06/15/17 00:00 97.7 82 19 94/66 (75) 93 06/14/17 19:30 97.4 75 19 113/60 (77) 95 06/15/17 06/15/17 06/15/17 07:00 15:00 23:00 Intake Total 360 ml Balance 360 ml Result Diagram: 06/14/17 6389 Laboratory Results Laboratory Tests Test 06/14/17 18:54 06/15/17 01:35 White Blood Count 4.5 TH/MM3 Red Blood Count 4.10 MIL/MM3 Hemoglobin 12.6 GM/DL Hematocrit 38.0 % Mean Corpuscular Volume 92.7 FL Mean Corpuscular Hemoglobin 30.7 PG Mean Corpuscular Hemoglobin Concent 33.1 % Red Cell Distribution Width 20.6 % Platelet Count 124 TH/MM3 Mean Platelet Volume 8.4 FL Vancomycin Level Trough 3.0 MCG/ML Culture Results Microbiology Date/Time Source Procedure Growth Status 06/14/17 13:51 Blood Peripheral Aerobic Blood Culture Pending Received 06/14/17 13:51 Blood Peripheral Anaerobic Blood Culture Pending Received 06/13/17 14:11 Blood Peripheral Aerobic Blood Culture - Preliminary NO GROWTH IN 1 DAY Resulted 06/13/17 14:11 Blood Peripheral Anaerobic Blood Culture - Preliminary NO GROWTH IN 1 DAY Resulted Administered Medications Medications (Trade) Dose Ordered Sig/Deacon Route PRN Reason Start Time Stop Time Status Last Admin Dose Admin Sodium Chloride (NS Flush) 2 ml UNSCH PRN IV FLUSH FLUSH AFTER USING IV ACCESS 05/13/17 13:15 05/28/17 05:08 Sodium Chloride (NS Flush) 2 ml BID IV FLUSH 05/13/17 21:00 06/14/17 21:37 Ondansetron HCl (Zofran Inj) 4 mg Q6HR PRN IV PUSH nausea 05/13/17 13:15 05/28/17 10:36 Collagenase (Santyl Oint) 1 applic DAILY TOPICAL 05/15/17 09:00 06/09/17 09:39 Lisinopril (Prinivil) 2.5 mg DAILY PO 05/15/17 09:00 Future Hold 06/13/17 11:02 Albuterol/ Ipratropium (Duoneb Neb) 1 ampule Q2HR NEB PRN NEB dyspnea 05/14/17 15:45 05/28/17 11:08 Miscellaneous (Pill Splitter) 1 ea UNSCH PRN OTHER SEE LABEL COMMENTS 05/14/17 16:00 05/29/17 09:10 Bisacodyl (Dulcolax Supp) 10 mg DAILY RECTAL 05/16/17 09:00 06/08/17 15:12 Magnesium Hydroxide (Milk Of Magnesia Liq) 30 ml QID PRN PO CONSTIPATION 05/17/17 16:30 06/11/17 00:23 Chlorhexidine Gluconate (Peridex 0.12% Liq) 15 ml BID@08,20 MT 05/20/17 20:00 06/14/17 08:00 Docusate Sodium (Colace Liq) 100 mg BID PO 05/24/17 09:00 06/14/17 21:36 Prednisone (Deltasone) 20 mg BID PO 05/29/17 21:00 06/14/17 21:37 Insulin Aspart (NovoLOG SUPPLEMENTAL SCALE) 1 ACHS SLIDING SCALE SQ 05/30/17 17:00 06/14/17 21:35 Quetiapine Fumarate (SEROquel) 25 mg BID PO 06/01/17 13:45 06/14/17 21:37 Fondaparinux (Arixtra Inj) 7.5 mg Q24H SQ 06/04/17 09:00 Future Hold 06/14/17 10:20 Carvedilol (Coreg) 3.125 mg Q12HR PO 06/04/17 21:00 06/14/17 21:37 Diltiazem HCl (Cardizem Cd) 120 mg DAILY PO 06/05/17 09:00 06/14/17 10:18 Furosemide (Lasix) 40 mg DAILY PO 06/06/17 09:00 Future Hold 06/14/17 10:19 Potassium Chloride (KCl) 20 meq Q12HR PO 06/05/17 14:45 06/14/17 21:37 Acetaminophen (Tylenol) 650 mg Q4H PRN PO fever 06/13/17 02:00 06/13/17 02:48 Aztreonam 2000 mg/ Sodium Chloride 100 ml @ 200 mls/hr Q8H IV 06/13/17 12:00 06/14/17 21:38 Vancomycin HCl 1250 mg/Sodium Chloride 262.5 ml @ 250 mls/hr Q12H IV 06/13/17 13:00 06/15/17 01:51 Objective Remarks GENERAL: Elderly male, lying in bed resting, watching TV SKIN: Warm and dry. HEAD: Normocephalic. EYES: No injection or drainage. NECK: Supple, trachea midline. CARDIOVASCULAR: +S1/S2 RESPIRATORY: anterior townsend clear. GASTROINTESTINAL: Abdomen soft, non-tender, nondistended. EXTREMITIES: No cyanosis NEUROLOGICAL: awake and alert. normal speech. Assessment/Plan Problem List: (1) Thrombocytopenia ICD Codes: D69.6 - Thrombocytopenia, unspecified Plan: 06/15: repeat platelet count showed increase to platelet count of 124K. plt count of 32K likely d/t clumping. 06/14 Hematology was reconsulted b/c platelet down to 32K. No obvious bleeding. Last dose of Arixtra this morning. --HIT negative --started on Arixtra on 06/04 for bilateral LE DVT + non-ambulatory status. Assessment 72y/o male with thrombocytopenia and history of bilateral lower extremity DVT. h/o COPD on chronic supplemental oxygen fibrillation, AFib on Coumadin, chronic systolic CHF with EF of 20%, bilateral lower extremity DVT, hypertension. Plan 1. await labs today 2. resume Arixtra if platelet count greater than 50K. Attending Statement The exam, history, and the medical decision-making described in the above note were completed with the assistance of the mid-level provider. I reviewed and agree with the findings presented. I attest that I had a [id number] encounter with the patient on the same day, and personally performed and documented my assessment and findings in the medical record. Pt refuse to answer questions. Repeat platelet was 124. Resume Arixtra. Continue supportive care. Susu Dyson Jun 15, 2017 09:29 Mao Marquez MD Jun 15, 2017 12:32
--- NOTE | 2017-06-15 09:56 | HHI.PR ---
Subjective Remarks Patient seen and examined this morning. Temperature 97.7, pulse 82, respiratory rate 19, blood pressure 94/66, pulse ox 93 on 2 L nasal cannula. He is lying in bed eating breakfast. Denies any major complaints today. He is annoyed with being in the hospital and wants to get out of here as soon as possible. He denies any chest pain or shortness of breath. Objective Vitals Vital Signs Date Time Temp Pulse Resp B/P (MAP) Pulse Ox O2 Delivery O2 Flow Rate FiO2 06/15/17 00:00 97.7 82 19 94/66 (75) 93 06/14/17 19:30 97.4 75 19 113/60 (77) 95 I/O 06/14/17 06/14/17 06/14/17 06/15/17 06/15/17 06/15/17 07:00 15:00 23:00 07:00 15:00 23:00 Intake Total 360 ml 360 ml Output Total 950 ml Balance -590 ml 360 ml Intake Oral 360 ml 360 ml Output Urine Total 950 ml # Voids 2 # Bowel Movements 0 Result Diagram: 06/14/17 1854 Imaging Last Impressions Chest X-Ray 06/14/17 0000 Signed Impressions: Service Date/Time: Wednesday, June 14, 2017 13:15 - CONCLUSION: 1. Interval extubation and removal of nasogastric tube. 2. Mild patchy opacity at the lung bases likely representing atelectasis. Mitch Crockett MD Abdomen X-Ray 05/22/17 0600 Signed Impressions: Service Date/Time: May 10:04 - CONCLUSION: The previously noted dilated small bowel have resolved. NG tube in the stomach. Jeff Foster MD Small Bowel X-Ray 05/14/17 0000 Signed Impressions: Service Date/Time: Sunday, May 14, 2017 11:20 - CONCLUSION: 1. Findings consistent with CT examination and suggestive of high grade obstruction in the distal jejunum/proximal ileum. Kwaku Vences MD Abdomen/Pelvis CT 05/13/17 1005 Signed Impressions: Service Date/Time: Saturday, May 13, 2017 11:36 - CONCLUSION: 1. Mid to distal jejunal small bowel ileus with acute transition characteristic of high grade small bowel obstruction. 2. Uncomplicated colonic diverticulosis. 3. Mild ascites. 4. Uncomplicated colonic diverticulosis. Conor John MD Objective Remarks GEN: Well-developed, well-nourished patient. No acute distress. CV: Regular rate and rhythm without obvious murmurs LUNGS: Clear to auscultation bilaterally. Normal respiratory effort. No wheezes , rales, rhonchi. GI: Soft, nontender, nondistended. No palpable masses. Bowel sounds WNL. EXT: No edema. NEURO/PSYCH: Afocal. Awake, alert, and oriented x3. Not willing to cooperate or work with physician Procedures 05/20/17 intubation 05/21/17 central line placement, right subclavian Medications and IVs Current Medications Medications (Trade) Dose Ordered Sig/Deacon Route Start Time Stop Time Status Last Admin (NS Flush) 2 ml UNSCH PRN IV FLUSH 05/13/17 13:15 05/28/17 05:08 (NS Flush) 2 ml BID IV FLUSH 05/13/17 21:00 06/14/17 21:37 (Narcan Inj) 0.4 mg UNSCH PRN IV PUSH 05/13/17 13:15 (Zofran Inj) 4 mg Q6HR PRN IV PUSH 05/13/17 13:15 05/28/17 10:36 (Santyl Oint) 1 applic DAILY TOPICAL 05/15/17 09:00 06/09/17 09:39 (Prinivil) 2.5 mg DAILY PO 05/15/17 09:00 Future Hold 06/13/17 11:02 (Duoneb Neb) 1 ampule Q2HR NEB PRN NEB 05/14/17 15:45 05/28/17 11:08 (Pill Splitter) 1 ea UNSCH PRN OTHER 05/14/17 16:00 05/29/17 09:10 (Dulcolax Supp) 10 mg DAILY RECTAL 05/16/17 09:00 06/08/17 15:12 (Milk Of Magnesia Liq) 30 ml QID PRN PO 05/17/17 16:30 06/11/17 00:23 (Peridex 0.12% Liq) 15 ml BID@08,20 MT 05/20/17 20:00 06/14/17 08:00 (D50w (Vial) Inj) 50 ml UNSCH PRN IV PUSH 05/21/17 12:45 (Glucagon Inj) 1 mg UNSCH PRN OTHER 05/21/17 12:45 (Colace Liq) 100 mg BID PO 05/24/17 09:00 06/14/17 21:36 (Trandate Inj) 10 mg Q4H PRN IV PUSH 05/28/17 08:00 (Deltasone) 20 mg BID PO 05/29/17 21:00 06/14/17 21:37 (NovoLOG SUPPLEMENTAL SCALE) 1 ACHS SLIDING SCALE SQ 05/30/17 17:00 06/14/17 21:35 (Reglan Inj) 10 mg Q8HR PRN IV PUSH 05/30/17 16:00 (Vasotec Inj) 1.25 mg Q6H PRN IV PUSH 05/31/17 15:15 (SEROquel) 25 mg BID PO 06/01/17 13:45 06/14/17 21:37 (Arixtra Inj) 7.5 mg Q24H SQ 06/04/17 09:00 Future Hold 06/14/17 10:20 (Coreg) 3.125 mg Q12HR PO 06/04/17 21:00 06/14/17 21:37 (Cardizem Cd) 120 mg DAILY PO 06/05/17 09:00 06/14/17 10:18 (Lasix) 40 mg DAILY PO 06/06/17 09:00 Future Hold 06/14/17 10:19 (KCl) 20 meq Q12HR PO 06/05/17 14:45 06/14/17 21:37 (Tylenol) 650 mg Q4H PRN PO 06/13/17 02:00 06/13/17 02:48 Pharmacy Profile Note 0 ml @ 0 mls/hr UNSCH OTHER 06/13/17 10:30 Aztreonam 2000 mg/ Sodium Chloride 100 ml @ 200 mls/hr Q8H IV 06/13/17 12:00 06/14/17 21:38 Vancomycin HCl 1250 mg/Sodium Chloride 262.5 ml @ 250 mls/hr Q12H IV 06/13/17 13:00 06/15/17 01:51 (Duoneb Neb) 1 ampule Q8HR NEB NEB 06/14/17 13:30 A/P Problem List: (1) Respiratory failure ICD Code: J96.90 - Respiratory failure, unspecified, unspecified whether with hypoxia or hypercapnia (2) Acute hypoxemic respiratory failure ICD Code: J96.01 - Acute respiratory failure with hypoxia Status: Acute (3) Thrombocytopenia ICD Code: D69.6 - Thrombocytopenia, unspecified (4) Acute renal insufficiency ICD Code: N28.9 - Disorder of kidney and ureter, unspecified (5) COPD (chronic obstructive pulmonary disease) ICD Code: J44.9 - Chronic obstructive pulmonary disease, unspecified (6) Atrial fibrillation ICD Code: I48.91 - Unspecified atrial fibrillation Status: Chronic (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 Blood cultures drawn. Continue vancomycin and aztreonam. Follow-up culture results. On 4 L of oxygen. Check sputum culture Hypertension-could be from infection versus dehydration, stop lisinopril, and Lasix. Check BMP, unfortunately patient is currently refusing to get his labs drawn. Agitation-At this time the patient does not have capacity to refuse medical intervention, Haldol 5 mg IV every 8 as needed. Psychiatry following Weakness and dependency on ADLs - Patient is most appropriate for significant and stable for discharge at this time to [facility]. Per psychiatry he lacks capacity. Chronic systolic congestive heart failure with exacerbation: Continue Coreg, long-acting Cardizem. Aldactone on hold for relative hypotension. Will hold lisinopril and Lasix today. Atrial fibrillation: Continue diltiazem. Diabetes mellitus: Monitor Accu-Cheks and cover with sliding scale insulin. Bilateral lower extremity DVT-on Arixtra, hold today because of thrombocytopenia Thrombocytopenia: Improved yesterday to 124, unable to monitor today's levels as patient has refused lab draws at this time. Possibly secondary to hemolysis with low haptoglobin and elevated LDH. Monitor, HIT negative, LUIS not done. Hematology consulted, regulations appreciated. Per hematology, hold Arixtra if platelets less than 50, currently awaiting today's results however patient is refusing lab draws. No hemoptysis. Currently acquired pneumonia-resolved, status post treatment. Acute hypoxemic respiratory failure: resolved. Patient was intubated on 05/20/17 and extubated on 05/27/17. Now tolerating oxygen per nasal cannula. Continue to decrease prednisone, continue bronchodilators. Small bowel obstruction: Resolved, continue pured diet per speech therapy. Continue bowel regimen. DVT prophylaxis: SCDs. Hold Arixtra as above. Discharge Planning Pending placement for long-term care. Problem Qualifiers (1) Respiratory failure: Henry Kerr MD, R3 Jun 15, 2017 09:56
[2017-06-15] MEDS: POTASSIUM CHLORIDE 20 MEQ CONTROLLED RELEASE TAB PO SCH ×2 (10:04→21:55)
[2017-06-15] MEDS: predniSONE 20 MG TAB PO SCH ×2 (10:04→21:56)
[2017-06-15] MEDS: QUEtiapine FUMARATE 25 MG TAB PO SCH ×2 (10:04→21:55)
[2017-06-15] MEDS: VANCOMYCIN 1,500 MG/NS 500 ML IV SCH ×2 (12:00)
[2017-06-15 16:00] VITALS: BP 145/78; PULSE 80; RESP 20; TEMP 98; O2SAT 92
[2017-06-15 20:00] VITALS: BP 124/62; PULSE 83; RESP 17; TEMP 97.5; O2SAT 92
[2017-06-16] VITALS (9 sets, daily range): BP systolic 127–166; BP diastolic 66–85; PULSE 69–121; RESP 16–40; TEMP 97.1–101.7; O2SAT 80–96
[2017-06-16] MEDS: AZTREONAM INJ 2,000 MG in SODIUM CHLORIDE 0.9% INJ 100 ML IV SCH ×3 (00:25→21:42)
[2017-06-16] MEDS: INSULIN ASPART SUPPLEMENTAL SCALE SQ SCH ×4 (08:00→21:43)
[2017-06-16] MEDS: CHLORHEXIDINE 0.12% (ORAL KIT) 15 ML CUP MT SCH ×2 (08:00→20:00)
[2017-06-16] MEDS: SODIUM CHLORIDE 0.9% FLUSH 10 ML FLUSH IV FLUSH SCH ×2 (09:00→21:42)
[2017-06-16] MEDS: COLLAGENASE OINT 30 GM TUBE TOPICAL SCH (09:00)
[2017-06-16] MEDS: DOCUSATE SODIUM 100 MG/10 ML UDC PO SCH ×2 (09:00→21:42)
[2017-06-16] MEDS: POTASSIUM CHLORIDE 20 MEQ CONTROLLED RELEASE TAB PO SCH ×2 (09:00→21:42)
[2017-06-16] MEDS: BISACODYL 10 MG SUPP RECTAL SCH ×2 (09:00→09:59)
[2017-06-16] MEDS: QUEtiapine FUMARATE 25 MG TAB PO SCH ×2 (09:55→21:41)
[2017-06-16] MEDS: predniSONE 20 MG TAB PO SCH (09:55)
[2017-06-16] MEDS: DILTIAZEM-CD 120 MG CAP ER PO SCH (09:56)
[2017-06-16] MEDS: FONDAPARINUX SODIUM 7.5 MG/0.6 ML SYRINGE SQ SCH (09:56)
[2017-06-16] MEDS: CARVEDILOL 6.25 MG TAB PO SCH ×2 (09:56→21:41)
--- NOTE | 2017-06-16 10:39 | HHI.PR ---
Subjective Remarks Patient seen and examined this morning. Temperature 97.7, pulse 82, respiratory rate 19, blood pressure 94/66, pulse ox 93 on 2 L nasal cannula. He is lying in bed eating breakfast. Denies any major complaints today. He is annoyed with being in the hospital and wants to get out of here as soon as possible. He denies any chest pain or shortness of breath. 4-2 remains SOB OXYGEN SATURATION WAS IN THE 70S NOW ON MORE OXYGEN TACHYPNEA WILL GET ABG DW RN AND PT IS A DNR Very short of breath Noted to have fevers Possible aspiration will get a chest x-ray Objective Vitals Vital Signs Date Time Temp Pulse Resp B/P (MAP) Pulse Ox O2 Delivery O2 Flow Rate FiO2 06/16/17 08:00 98.7 97 17 166/85 (112) 96 06/16/17 00:00 98.4 93 16 127/66 (86) 92 06/15/17 20:00 97.5 83 17 124/62 (82) 92 06/15/17 16:00 98.0 80 20 145/78 (100) 92 I/O 06/15/17 06/15/17 06/15/17 06/16/17 06/16/17 06/16/17 07:00 15:00 23:00 07:00 15:00 23:00 Intake Total 360 ml 600 ml Output Total 400 ml Balance 360 ml 200 ml Intake Oral 360 ml 600 ml Output Urine Total 400 ml # Voids 2 2 # Bowel Movements 0 2 Result Diagram: 06/14/17 1855 Other Results Laboratory Tests Test 06/13/17 14:11 06/14/17 18:54 06/15/17 01:35 White Blood Count 4.9 TH/MM3 4.5 TH/MM3 Red Blood Count 4.54 MIL/MM3 4.10 MIL/MM3 Hemoglobin 13.9 GM/DL 12.6 GM/DL Hematocrit 42.3 % 38.0 % Mean Corpuscular Volume 93.1 FL 92.7 FL Mean Corpuscular Hemoglobin 30.7 PG 30.7 PG Mean Corpuscular Hemoglobin Concent 33.0 % 33.1 % Red Cell Distribution Width 21.3 % 20.6 % Platelet Count 32 TH/MM3 124 TH/MM3 Mean Platelet Volume 9.1 FL 8.4 FL Vancomycin Level Trough 3.0 MCG/ML Imaging Last Impressions Chest X-Ray 06/14/17 0000 Signed Impressions: Service Date/Time: Wednesday, June 14, 2017 13:15 - CONCLUSION: 1. Interval extubation and removal of nasogastric tube. 2. Mild patchy opacity at the lung bases likely representing atelectasis. Mitch Crockett MD Abdomen X-Ray 05/22/17 0600 Signed Impressions: Service Date/Time: May 10:04 - CONCLUSION: The previously noted dilated small bowel have resolved. NG tube in the stomach. Jeff Foster MD Small Bowel X-Ray 05/14/17 0000 Signed Impressions: Service Date/Time: Sunday, May 14, 2017 11:20 - CONCLUSION: 1. Findings consistent with CT examination and suggestive of high grade obstruction in the distal jejunum/proximal ileum. Kwaku Vences MD Abdomen/Pelvis CT 05/13/17 1005 Signed Impressions: Service Date/Time: Saturday, May 13, 2017 11:36 - CONCLUSION: 1. Mid to distal jejunal small bowel ileus with acute transition characteristic of high grade small bowel obstruction. 2. Uncomplicated colonic diverticulosis. 3. Mild ascites. 4. Uncomplicated colonic diverticulosis. Conor John MD Objective Remarks GENERAL: In some acute distress having fevers tachycardic cannot be entirely SKIN: Warm and dry. HEAD: Atraumatic. Normocephalic. EYES: Pupils equal and round. No scleral icterus. No injection or drainage. Extraocular muscles and ENT: No nasal bleeding or discharge. Mucous membranes pink and moist. Tongue is midline NECK: Trachea midline. No JVD. Supple CARDIOVASCULAR: Regular rate and rhythm. S1-S2 no S3 or S4 RESPIRATORY: Some accessory muscle use.. Breath sounds equal bilaterally. Rhonchi and wheezes throughout and coarse breath sounds throughout GASTROINTESTINAL: Abdomen soft, non-tender, nondistended. Hepatic and splenic margins not palpable. MUSCULOSKELETAL: Extremities without clubbing, cyanosis, or edema. No obvious deformities. NEUROLOGICAL: Awake and alert not very oriented. No obvious cranial nerve deficits. Motor grossly within normal limits. 3.5 out of 5 muscle strength in the arms and legs. ABNormal speech. PSYCHIATRIC: INAppropriate mood and affect; insight and judgment ABnormal. Procedures 05/20/17 intubation 05/21/17 central line placement, right subclavian Medications and IVs Current Medications Ondansetron HCl (Zofran Inj) 4 mg ONCE ONCE IVP Last administered on at 10:27; Start 05/13/17 at 10:15; Stop 05/13/17 at 10:16; Status DC Sodium Chloride (NS Flush) 2 ml UNSCH PRN IV FLUSH FLUSH AFTER USING IV ACCESS ; Start 05/13/17 at 10:15; Stop 05/14/17 at 15:56; Status DC Sodium Chloride 500 ml @ 500 mls/hr BOLUS ONCE IV Last administered on at 11:49; Start 05/13/17 at 10:15; Stop 05/13/17 at 11:14; Status DC Sodium Chloride 1,000 ml @ 83 mls/hr Q12H3M IV Last administered on 05/13/17at 10:26; Start 05/13/17 at 10:15; Stop 05/13/17 at 13:07; Status DC Iohexol (Omnipaque 350 Inj) 86 ml STK-MED ONCE IVCONTRAST Last administered on 05/13/17at 11:52; Start 05/13/17 at 11:52; Stop 05/13/17 at 11:53; Status DC Ceftriaxone Sodium 1000 mg/ Sodium Chloride 100 ml @ 200 mls/hr ONCE ONCE IV Last administered on 05/13/17at 14:26; Start 05/13/17 at 12:45; Stop 05/13/17 at 13:14; Status DC Azithromycin 500 mg/Sodium Chloride 250 ml @ 250 mls/hr ONCE ONCE IV Last administered on 05/13/17at 15:49; Start 05/13/17 at 12:45; Stop 05/13/17 at 13:44 ; Status DC Sodium Chloride (NS Flush) 2 ml UNSCH PRN IV FLUSH FLUSH AFTER USING IV ACCESS Last administered on 05/28/17at 05:08; Start 05/13/17 at 13:15 Sodium Chloride (NS Flush) 2 ml BID IV FLUSH Last administered on 06/14/17at 21: 37; Start 05/13/17 at 21:00 Naloxone HCl (Narcan Inj) 0.4 mg UNSCH PRN IV PUSH SEE LABEL COMMENTS; Start at 13:15 Furosemide (Lasix Inj) 40 mg ONCE ONCE IV PUSH Last administered on 05/13/17at 14:25; Start 05/13/17 at 14:00; Stop 05/13/17 at 14:01; Status DC Potassium Chloride (KCl) 40 meq ONCE ONCE PO ; Start 05/13/17 at 14:00; Stop at 14:01; Status DC Heparin Sodium/ Dextrose 250 ml @ 15 mls/hr TITRATE PRN IV Coagulation Management Last administered on 05/19/17at 01:16; Start 05/13/17 at 14:00; Stop at 18:20; Status DC Ondansetron HCl (Zofran Inj) 4 mg Q6HR PRN IV PUSH nausea Last administered on 05/28/17at 10:36; Start 05/13/17 at 13:15 Lidocaine HCl (Xylocaine 2% Viscous) 15 ml ONCE ONCE SWISH-SPIT ; Start at 15:30; Stop 05/13/17 at 15:31; Status DC Etomidate (Amidate Inj) 20 mg ONCE ONCE IV PUSH Last administered on at 16:00; Start 05/13/17 at 16:00; Stop 05/13/17 at 16:04; Status DC Diatrizoate Meglum/ Diatrizoate Sod ( Gastroview Liq) 240 ml STK-MED ONCE NG Last administered on 05/14/17at 11:29; Start 05/14/17 at 11:29; Stop 05/14/17 at 11:30; Status DC Potassium Bicarb/ Potassium Chloride (K-Lyte Cl Eff) 25 meq ONCE ONCE PO Last administered on 05/14/17at 16:03; Start 05/14/17 at 16:00; Stop 05/14/17 at 16:01; Status DC Carvedilol (Coreg) 6.25 mg Q12HR PO Last administered on 06/04/17at 08:50; Start 05/14/17 at 21:00; Stop 06/04/17 at 17:34; Status DC Collagenase (Santyl Oint) 1 applic DAILY TOPICAL Last administered on at 09:39; Start 05/15/17 at 09:00 Diltiazem HCl (Cardizem) 30 mg QID PO Last administered on 06/04/17 18:23; Start 05/14/17 at 18:00; Stop 06/04/17 at 22:00; Status DC Docusate Sodium (Colace) 100 mg BID PO Last administered on 05/18/17 08:31; Start 05/14/17 at 21:00; Stop 05/24/17 at 05:44; Status DC Furosemide (Lasix) 40 mg BID@ PO Last administered on 05/14/17at 18:00; Start 05/14/17 at 18:00; Stop 05/22/17 at 13:27; Status DC Lisinopril (Prinivil) 2.5 mg DAILY PO Last administered on 06/13/17at 11:02; Start 05/15/17 at 09:00; Status Future Hold Potassium Chloride (KCl) 20 meq DAILY PO Last administered on 05/18/17 08:31; Start 05/15/17 at 09:00; Stop 05/29/17 at 14:39; Status DC Prednisone (Deltasone) 20 mg DAILY PO Last administered on 05/14/17at 16:06; Start 05/14/17 at 16:00; Stop 05/29/17 at 14:39; Status DC Furosemide (Lasix Inj) 20 mg ONCE ONCE IV PUSH Last administered on 05/14/17at 16:03; Start 05/14/17 at 16:00; Stop 05/14/17 at 16:01; Status DC Albuterol/ Ipratropium (Duoneb Neb) 1 ampule Q2HR NEB PRN NEB dyspnea Last administered on 05/28/17at 11:08; Start 05/14/17 at 15:45 Albuterol/ Ipratropium (Duoneb Neb) 1 ampule Q6HR WHILE AWAKE NEB NEB Last administered on 05/14/17at 16:24; Start 05/14/17 at 15:45; Stop 05/14/17 at 17:30 ; Status DC Miscellaneous (Pill Splitter) 1 ea UNSCH PRN OTHER SEE LABEL COMMENTS Last administered on 05/29/17at 09:10; Start 05/14/17 at 16:00 Etomidate (Amidate Inj) 20 mg ONCE ONCE IV PUSH ; Start 05/14/17 at 18:45; Stop 05/14/17 at 18:57; Status DC Rocuronium Aldrich (Zemuron Inj) 50 mg BOLUS ONCE IV ; Start 05/14/17 at 18:45 ; Stop 05/14/17 at 18:57; Status DC Midazolam HCl (Versed Inj) 5 mg ONCE ONCE IV PUSH ; Start 05/14/17 at 19:00; Stop 05/14/17 at 19:03; Status DC Albuterol/ Ipratropium (Duoneb Neb) 1 ampule Q4HR NEB NEB Last administered on 05/18/17at 16:58; Start 05/14/17 at 20:00; Stop 05/18/17 at 19:59; Status DC Furosemide (Lasix Inj) 40 mg ONCE ONCE IV PUSH ; Start 05/14/17 at 19:00; Stop 05/14/17 at 19:03; Status DC Furosemide (Lasix Inj) 40 mg BID@ IV PUSH Last administered on 05/20/17at 09 :15; Start 05/14/17 at 22:00; Stop 05/20/17 at 11:20; Status DC Potassium Bicarb/ Potassium Chloride (K-Lyte Cl Eff) 25 meq Q12HR PO Last administered on 05/18/17at 20:41; Start 05/14/17 at 21:00; Stop 05/29/17 at 14:39 ; Status DC Potassium Chloride 100 ml @ 50 mls/hr Q2H PRN IV-CENTRAL For Potassium 2.8 - 3.2 mEq/L; Start 05/14/17 at 17:45; Stop 05/17/17 at 08:16; Status DC Potassium Chloride 100 ml @ 50 mls/hr Q2H PRN IV For Potassium 2.8 - 3.2 mEq/ L Last administered on 05/15/17at 11:06; Start 05/14/17 at 17:45; Stop 05/17/17 at 08:16; Status DC Potassium Bicarb/ Potassium Chloride (K-Lyte Cl Eff) 50 meq UNSCH PRN PO For Potassium 3.3 - 3.5 mEq/L; Start 05/14/17 at 17:45; Stop 05/17/17 at 08:16; Status DC Potassium Chloride 100 ml @ 25 mls/hr UNSCH PRN IV-CENTRAL For Potassium 3.3 - 3.5 mEq/L; Start 05/14/17 at 17:45; Stop 05/17/17 at 08:16; Status DC Potassium Chloride 100 ml @ 50 mls/hr Q2H PRN IV For Potassium 3.3 - 3.5 mEq/ L Last administered on 05/15/17at 06:53; Start 05/14/17 at 17:45; Stop 05/17/17 at 08:16; Status DC Magnesium Sulfate 4 gm/Sodium Chloride 100 ml @ 50 mls/hr UNSCH PRN IV For Magnesium 0.9 - 1.1 mg/dL; Start 05/14/17 at 17:45; Stop 05/17/17 at 08:16; Status DC Magnesium Oxide (Mag-Ox) 800 mg UNSCH PRN PO For Magnesium 1.2 - 1.6 mg/dL; Start 05/14/17 at 17:45; Stop 05/17/17 at 08:16; Status DC Magnesium Sulfate 2 gm/Sodium Chloride 100 ml @ 50 mls/hr UNSCH PRN IV For Magnesium 1.2 - 1.6 mg/dL; Start 05/14/17 at 17:45; Stop 05/17/17 at 08:16; Status DC Potassium Phosphate (K-Phos) 2,000 mg Q4H PRN PO For Phosphorus < 2.5 mg/dL; Start 05/14/17 at 17:45; Stop 05/17/17 at 08:16; Status DC Sodium Phosphate 30 mmol/Sodium Chloride 250 ml @ 42 mls/hr UNSCH PRN IV For Phosphorus < 2.5 mg/dL; Start 05/14/17 at 17:45; Stop 05/17/17 at 08:16; Status DC Potassium Phosphate (K-Phos) 2,000 mg UNSCH PRN PO/TUBE SEE LABEL COMMENTS; Start 05/14/17 at 17:45; Stop 05/17/17 at 08:16; Status DC Potassium Phosphate 30 mmol/ Sodium Chloride 260 ml @ 42 mls/hr UNSCH PRN IV SEE LABEL COMMENTS; Start 05/14/17 at 17:45; Stop 05/17/17 at 08:16; Status DC Methylprednisolone Sodium Succinate (SoluMEDROL INJ) 60 mg Q6HR IV PUSH Last administered on 05/22/17at 12:18; Start 05/14/17 at 19:00; Stop 05/22/17 at 13:27; Status DC Aztreonam 1000 mg/ Sodium Chloride 100 ml @ 200 mls/hr Q8H IV Last administered on 05/16/17at 03:31; Start 05/14/17 at 20:00; Stop 05/16/17 at 10:56; Status DC Metoclopramide HCl (Reglan Inj) 5 mg Q8HR IV PUSH Last administered on at 05:14; Start 05/14/17 at 19:00; Stop 05/15/17 at 09:31; Status DC Potassium Chloride 30 meq/ Sodium Chloride 115 ml @ 38.333 mls/ hr ONCE ONCE IV-CENTRAL Last administered on 05/14/17at 22:33; Start 05/14/17 at 20:00; Stop 05/14/17 at 22:59; Status DC Spironolactone (Aldactone) 25 mg BID@09,18 PO Last administered on 05/29/17at 09 :16; Start 05/14/17 at 19:15; Stop 05/29/17 at 14:46; Status DC Metoclopramide HCl (Reglan Inj) 10 mg Q8HR IV PUSH Last administered on at 14:42; Start 05/15/17 at 14:00; Stop 05/30/17 at 15:52; Status DC Magnesium Hydroxide (Milk Of Magnesia Liq) 30 ml DAILY PRN PO CONSTIPATION Last administered on 05/17/17at 10:14; Start 05/15/17 at 16:30; Stop 05/17/17 at 16: 23; Status DC Bisacodyl (Dulcolax Supp) 10 mg DAILY RECTAL Last administered on 06/08/17at 15: 12; Start 05/16/17 at 09:00 Levofloxacin/ Dextrose 150 ml @ 100 mls/hr Q24H IV Last administered on at 12:11; Start 05/16/17 at 11:00; Stop 05/25/17 at 09:53; Status DC Magnesium Hydroxide (Milk Of Magnesia Liq) 30 ml QID PRN PO CONSTIPATION Last administered on 06/11/17at 00:23; Start 05/17/17 at 16:30 Calcium Carbonate (Tums Chew) 500 mg ONCE ONCE CHEW Last administered on at 21:53; Start 05/17/17 at 21:45; Stop 05/17/17 at 21:46; Status DC Potassium Chloride 100 ml @ 50 mls/hr Q2H IV ; Start 05/20/17 at 04:15; Stop 05/20/17 at 04:28; Status DC Potassium Chloride 100 ml @ 50 mls/hr Q2H IV Last administered on 05/20/17at 08: 58; Start 05/20/17 at 07:00; Stop 05/20/17 at 10:59; Status DC Metronidazole 100 ml @ 100 mls/hr Q6H IV Last administered on 05/22/17at 09:00; Start 05/20/17 at 10:00; Stop 05/22/17 at 13:27; Status DC Etomidate (Amidate Inj) 40 mg STK-MED ONCE .ROUTE Last administered on at 09:40; Start 05/20/17 at 09:40; Stop 05/20/17 at 09:41; Status DC Midazolam HCl (Versed Inj) 10 mg STK-MED ONCE .ROUTE Last administered on at 09:40; Start 05/20/17 at 09:40; Stop 05/20/17 at 09:41; Status DC Rocuronium Aldrich (Zemuron Inj) 50 mg STK-MED ONCE .ROUTE Last administered on 05/20/17at 09:42; Start 05/20/17 at 09:42; Stop 05/20/17 at 09:43; Status DC Propofol 50 ml @ As Directed STK-MED ONCE .ROUTE ; Start 05/20/17 at 09:49; Stop 05/20/17 at 09:50; Status DC Norepinephrine Bitartrate 250 ml @ As Directed STK-MED ONCE IV ; Start 05/20/17 at 09:57; Stop 05/20/17 at 09:58; Status DC Rocuronium Aldrich (Zemuron Inj) 50 mg STK-MED ONCE .ROUTE ; Start 05/20/17 at 10 :19; Stop 05/20/17 at 10:20; Status DC Sodium Bicarbonate (Sodium Bicarbonate 8.4% Inj) 50 meq STK-MED ONCE .ROUTE ; Start 05/20/17 at 10:32; Stop 05/20/17 at 10:33; Status DC Potassium Chloride 100 ml @ 25 mls/hr Q4H IV Last administered on 05/20/17at 13: 12; Start 05/20/17 at 11:15; Stop 05/20/17 at 19:14; Status DC Sodium Chloride 1,000 ml @ 100 mls/hr Q10H IV Last administered on 05/21/17at 05 :35; Start 05/20/17 at 11:30; Stop 05/21/17 at 15:38; Status DC Chlorhexidine Gluconate (Peridex 0.12% Liq) 15 ml BID@08,20 MT Last administered on 06/14/17at 08:00; Start 05/20/17 at 20:00 Propofol 100 ml @ 2.109 mls/ hr TITRATE PRN IV SEDATION Last administered on at 01:55; Start 05/20/17 at 11:30; Stop 05/29/17 at 14:39; Status DC Sodium Bicarbonate (Sodium Bicarbonate 8.4% Inj) 50 meq ONCE ONCE IV PUSH ; Start 05/20/17 at 11:30; Stop 05/20/17 at 11:59; Status DC Sodium Bicarbonate (Sodium Bicarbonate 8.4% Inj) 50 meq ONCE ONCE IV PUSH ; Start 05/20/17 at 11:30; Stop 05/20/17 at 11:59; Status DC Metoclopramide HCl (Reglan Inj) 10 mg Q8HR IV PUSH Last administered on at 14:00; Start 05/20/17 at 14:00; Stop 05/24/17 at 05:43; Status DC Sodium Chloride 5.5 meq/Sodium Acetate 29.5 meq/ Potassium Chloride 20 meq/ Magnesium Chloride 5 meq/ Calcium Chloride 4.5 meq/ Multivitamins 10 ml/Folic Acid 1 mg/Amino Acids/ Dextrose 1,042.1719 ml @ 83 mls/hr [id number] IV-CENTRAL Last administered on 05/23/17at 09:56; Start 05/20/17 at 20:00; Stop 05/23/17 at 13: 31; Status DC Sodium Chloride 1,000 ml @ 999 mls/hr Q1H1M IV Last administered on 05/20/17at 13:07; Start 05/20/17 at 12:06; Stop 05/20/17 at 14:06; Status DC Etomidate (Amidate Inj) 20 mg NOW ONCE IV PUSH ; Start 05/20/17 at 12:06; Stop 05/20/17 at 12:51; Status DC Midazolam HCl (Versed Inj) 5 mg NOW ONCE IV ; Start 05/20/17 at 12:06; Stop 05/20 at 12:51; Status DC Lorazepam (Ativan Inj) 2 mg STK-MED ONCE .ROUTE ; Start 05/20/17 at 12:58; Stop 05/20/17 at 12:59; Status DC Lorazepam (Ativan Inj) 2 mg Q2H PRN IV AGITATION Last administered on at 14:02; Start 05/20/17 at 14:15; Stop 05/31/17 at 15:11; Status DC Norepinephrine Bitartrate 250 ml @ 7.5 mls/hr TITRATE PRN IV Maintain MAP > 65 mmHg Last administered on 05/20/17at 11:00; Start 05/20/17 at 14:15; Stop at 14:39; Status DC Rocuronium Aldrich (Zemuron Inj) 50 mg NOW ONCE IV ; Start 05/20/17 at 12:06; Stop 05/20/17 at 14:13; Status DC Potassium Chloride 100 ml @ 25 mls/hr NOW ONCE IV Last administered on at 18:29; Start 05/20/17 at 18:30; Stop 05/20/17 at 22:29; Status DC Heparin Sodium/ Dextrose 250 ml @ 15 mls/hr TITRATE PRN IV Coagulation Management Last administered on 05/21/17at 14:49; Start 05/20/17 at 18:30; Stop 05/22/17 at 13:27; Status DC Potassium Phosphate 30 mmol/ Sodium Chloride 260 ml @ 43.333 mls/ hr ONCE ONCE IV Last administered on 05/21/17at 11:00; Start 05/21/17 at 11:00; Stop at 16:59; Status DC Acetazolamide Sodium (Diamox Inj) 500 mg ONCE ONCE IV PUSH Last administered on 05/21/17at 11:10; Start 05/21/17 at 10:15; Stop 05/21/17 at 10:22; Status DC Potassium Chloride 40 meq/ Sodium Chloride 520 ml @ 130 mls/hr ONCE ONCE IV- CENTRAL Last administered on 05/21/17at 10:15; Start 05/21/17 at 10:15; Stop at 14:14; Status DC Dextrose (D50w (Vial) Inj) 50 ml UNSCH PRN IV PUSH HYPOGLYCEMIA-SEE COMMENTS; Start 05/21/17 at 12:45 Glucagon (Glucagon Inj) 1 mg UNSCH PRN OTHER HYPOGLYCEMIA-SEE COMMENTS; Start 05/21/17 at 12:45 Insulin Aspart (NovoLOG SUPPLEMENTAL SCALE) 1 Q6HR SQ Last administered on 05/30at 14:30; Start 05/21/17 at 12:45; Stop 05/30/17 at 15:50; Status DC Insulin Detemir (Levemir Inj) 8 units BID SQ Last administered on 05/22/17at 21: 56; Start 05/21/17 at 12:45; Stop 05/23/17 at 07:44; Status DC Potassium Chloride 20 meq/ Sodium Chloride 1,010 ml @ 100 mls/hr Q10H6M IV ; Start 05/21/17 at 16:00; Stop 05/21/17 at 18:19; Status DC Potassium Chloride 100 ml @ 25 mls/hr Q4H IV Last administered on 05/21/17at 20: 21; Start 05/21/17 at 18:30; Stop 05/22/17 at 02:29; Status DC Potassium Chloride/Sodium Chloride 1,000 ml @ 100 mls/hr Q10H IV ; Start at 18:30; Status Cancel Potassium Chloride 20 meq/ Sodium Chloride 1,010 ml @ 100 mls/hr Q10H6M IV Last administered on 05/22/17at 13:09; Start 05/21/17 at 18:30; Stop 05/23/17 at 01: 00; Status DC Potassium Chloride 100 ml @ 50 mls/hr Q2H PRN IV For Potassium 2.8 - 3.2 mEq/L ; Start 05/22/17 at 09:15; Stop 06/03/17 at 09:32; Status DC Potassium Chloride 100 ml @ 50 mls/hr Q2H PRN IV For Potassium 2.8 - 3.2 mEq/L ; Start 05/22/17 at 09:15; Stop 06/03/17 at 09:32; Status DC Potassium Bicarb/ Potassium Chloride (K-Lyte Cl Eff) 50 meq UNSCH PRN PO For Potassium 3.3 - 3.5 mEq/L; Start 05/22/17 at 09:15; Stop 06/03/17 at 09:32; Status DC Potassium Chloride 100 ml @ 25 mls/hr UNSCH PRN IV For Potassium 3.3 - 3.5 mEq /L; Start 05/22/17 at 09:15; Stop 06/03/17 at 09:32; Status DC Potassium Chloride 100 ml @ 50 mls/hr Q2H PRN IV For Potassium 3.3 - 3.5 mEq/L ; Start 05/22/17 at 09:15; Stop 06/03/17 at 09:32; Status DC Magnesium Sulfate 4 gm/Sodium Chloride 100 ml @ 50 mls/hr UNSCH PRN IV For Magnesium 0.9 - 1.1 mg/dL; Start 05/22/17 at 09:15; Stop 06/03/17 at 09:32; Status DC Magnesium Oxide (Mag-Ox) 800 mg UNSCH PRN PO For Magnesium 1.2 - 1.6 mg/dL; Start 05/22/17 at 09:15; Stop 06/03/17 at 09:32; Status DC Magnesium Sulfate 2 gm/Sodium Chloride 100 ml @ 50 mls/hr UNSCH PRN IV For Magnesium 1.2 - 1.6 mg/dL; Start 05/22/17 at 09:15; Stop 06/03/17 at 09:32; Status DC Potassium Phosphate (K-Phos) 2,000 mg Q4H PRN PO For Phosphorus < 2.5 mg/dL; Start 05/22/17 at 09:15; Stop 06/03/17 at 09:32; Status DC Sodium Phosphate 30 mmol/Sodium Chloride 250 ml @ 42 mls/hr UNSCH PRN IV For Phosphorus < 2.5 mg/dL Last administered on 05/26/17at 20:54; Start 05/22/17 at 09 :15; Stop 06/03/17 at 09:32; Status DC Potassium Phosphate (K-Phos) 2,000 mg UNSCH PRN PO/TUBE SEE LABEL COMMENTS; Start 05/22/17 at 09:15; Stop 06/03/17 at 09:32; Status DC Potassium Phosphate 30 mmol/ Sodium Chloride 260 ml @ 42 mls/hr UNSCH PRN IV SEE LABEL COMMENTS; Start 05/22/17 at 09:15; Stop 05/24/17 at 06:06; Status DC Methylprednisolone Sodium Succinate (SoluMEDROL INJ) 40 mg Q8HR IV PUSH Last administered on 05/29/17at 12:22; Start 05/22/17 at 14:00; Stop 05/29/17 at 14:22 ; Status DC Furosemide (Lasix Inj) 40 mg DAILY IV PUSH Last administered on 06/05/17at 11:31 ; Start 05/22/17 at 13:30; Stop 06/05/17 at 14:30; Status DC Potassium Chloride/Sodium Chloride 1,000 ml @ 50 mls/hr Q20H IV Last administered on 05/26/17at 21:40; Start 05/23/17 at 01:00; Stop 05/27/17 at 17:11 ; Status DC Insulin Detemir (Levemir Inj) 14 units BID SQ Last administered on 05/28/17at 21 :11; Start 05/23/17 at 09:00; Stop 05/29/17 at 14:21; Status DC Sodium Chloride 5.5 meq/Sodium Acetate 29.5 meq/ Potassium Chloride 20 meq/ Magnesium Chloride 5 meq/ Calcium Chloride 4.5 meq/ Multivitamins 5 ml/Folic Acid 0.5 mg/Amino Acids/ Dextrose 1,037.0719 ml @ 60 mls/hr [id number] IV-CENTRAL Last administered on 05/27/17at 15:52; Start 05/23/17 at 16:00; Stop 05/27/17 at 20:01; Status DC Docusate Sodium (Colace Liq) 100 mg BID PO Last administered on 06/14/17at 21:36 ; Start 05/24/17 at 09:00 Acetazolamide Sodium (Diamox Inj) 500 mg ONCE ONCE IV PUSH Last administered on 05/24/17at 12:11; Start 05/24/17 at 11:00; Stop 05/24/17 at 11:27; Status DC Labetalol HCl (Trandate Inj) 10 mg Q4H PRN IV PUSH SBP greater than 150mm Hg; Start 05/28/17 at 08:00 Prednisone (Deltasone) 20 mg BID PO Last administered on 06/16/17at 09:55; Start 05/29/17 at 21:00 Insulin Aspart (NovoLOG SUPPLEMENTAL SCALE) 1 ACHS SLIDING SCALE SQ Last administered on 06/15/17at 12:00; Start 05/30/17 at 17:00 Metoclopramide HCl (Reglan Inj) 10 mg Q8HR PRN IV PUSH nausea; Start 05/30/17 at 16:00 Enalaprilat (Vasotec Inj) 1.25 mg Q6H PRN IV PUSH SBP> OR = 170, DBP> OR = 100 ; Start 05/31/17 at 15:15 Albuterol/ Ipratropium (Duoneb Neb) 1 ampule TID NEB INH Last administered on 06/04/17at 08:37; Start 05/31/17 at 20:00; Stop 06/04/17 at 17:34; Status DC Lorazepam (Ativan Inj) 1 mg ONCE ONCE IV PUSH Last administered on 06/01/17 13:59; Start 06/01/17 at 13:45; Stop 06/01/17 at 13:48; Status DC Quetiapine Fumarate (SEROquel) 25 mg BID PO Last administered on 06/16/17 09:55 ; Start 06/01/17 at 13:45 Fondaparinux (Arixtra Inj) 7.5 mg Q24H SQ Last administered on 06/16/17 09:56; Start 06/04/17 at 09:00; Status Future hold Albuterol/ Ipratropium (Duoneb Neb) 1 ampule TID NEB INH Last administered on 06/08/17at 13:25; Start 06/04/17 at 20:00; Stop 06/08/17 at 19:59; Status DC Carvedilol (Coreg) 3.125 mg Q12HR PO Last administered on 06/16/17 09:56; Start 06/04/17 at 21:00 Diltiazem HCl (Cardizem Cd) 120 mg DAILY PO Last administered on 06/16/17 09:56 ; Start 06/05/17 at 09:00 Potassium Chloride (KCl) 20 meq ONCE ONCE PO Last administered on 06/04/17 18 :23; Start 06/04/17 at 17:45; Stop 06/04/17 at 17:46; Status DC Furosemide (Lasix) 40 mg DAILY PO Last administered on 06/14/17at 10:19; Start 06/06/17 at 09:00; Status Future Hold Potassium Chloride (KCl) 20 meq Q12HR PO Last administered on 06/15/17at 21:55; Start 06/05/17 at 14:45 Acetaminophen (Tylenol) 650 mg Q4H PRN PO fever Last administered on 06/13/17at 02:48; Start 06/13/17 at 02:00 Haloperidol Lactate (Haldol Inj) 2 mg ONCE ONCE IM ; Start 06/13/17 at 10:30; Stop 06/13/17 at 10:31; Status DC Pharmacy Profile Note 0 ml @ 0 mls/hr UNSCH OTHER ; Start 06/13/17 at 10:30 Aztreonam 2000 mg/ Sodium Chloride 100 ml @ 200 mls/hr Q8H IV Last administered on 06/15/17at 12:13; Start 06/13/17 at 12:00 Vancomycin HCl 1250 mg/Sodium Chloride 262.5 ml @ 250 mls/hr Q12H IV Last administered on 06/15/17at 01:51; Start 06/13/17 at 13:00; Stop 06/15/17 at 10:26; Status DC Miscellaneous Information SPECIFIC LAB TO BE DRAWN:VANCOMYCIN TROUGH DATE TO... ONCE ONCE .XX Last administered on 06/15/17at 00:45; Start 06/15/17 at 00:45; Stop 06/15/17 at 00:46; Status DC Albuterol/ Ipratropium (Duoneb Neb) 1 ampule Q8HR NEB NEB ; Start 06/14/17 at 13:30 Vancomycin HCl 1500 mg/Sodium Chloride 515 ml @ 257.5 mls/ hr Q12H IV Last administered on 06/15/17at 12:00; Start 06/15/17 at 12:00 Miscellaneous Information SPECIFIC LAB TO BE DRAWN:[facility]... ONCE ONCE .XX ; Start 06/17/17 at 11:45; Stop 06/17/17 at 11:46 A/P Problem List: (1) Respiratory failure ICD Code: J96.90 - Respiratory failure, unspecified, unspecified whether with hypoxia or hypercapnia (2) Acute hypoxemic respiratory failure ICD Code: J96.01 - Acute respiratory failure with hypoxia Status: Acute (3) Thrombocytopenia ICD Code: D69.6 - Thrombocytopenia, unspecified (4) Acute renal insufficiency ICD Code: N28.9 - Disorder of kidney and ureter, unspecified (5) COPD (chronic obstructive pulmonary disease) ICD Code: J44.9 - Chronic obstructive pulmonary disease, unspecified (6) Atrial fibrillation ICD Code: I48.91 - Unspecified atrial fibrillation Status: Chronic (7) [facility] (current) use of anticoagulants ICD Code: Z79.01 - [employer] animal [employer] (current) use of anticoagulants Status: Acute Assessment and Plan This is a 72-year-old male, initially admitted to the intensive care unit for shortness of breath, found to have pneumonia,, extubated 05/27/2017 Acute hypoxic respiratory failure, recent pneumonia-shortness of breath better, patient refusing interventions. Blood cultures drawn. Continue vancomycin and aztreonam. Follow-up culture results. On 4 L of oxygen. Check sputum culture Hypertension-could be from infection versus dehydration, stop lisinopril, and Lasix. Check BMP, unfortunately patient is currently refusing to get his labs drawn. Agitation-At this time the patient does not have capacity to refuse medical intervention, Haldol 5 mg IV every 8 as needed. Psychiatry following Weakness and dependency on ADLs - Patient is most appropriate for significant and stable for discharge at this time to snf. Per psychiatry he lacks capacity. Chronic systolic congestive heart failure with exacerbation: Continue Coreg, long-acting Cardizem. Aldactone on hold for relative hypotension. Will hold lisinopril and Lasix today. Atrial fibrillation: Continue diltiazem. Diabetes mellitus: Monitor Accu-Cheks and cover with sliding scale insulin. Bilateral lower extremity DVT-on Arixtra, hold today because of thrombocytopenia Thrombocytopenia: Improved yesterday to 124, unable to monitor today's levels as patient has refused lab draws at this time. Possibly secondary to hemolysis with low haptoglobin and elevated LDH. Monitor, HIT negative, LUIS not done. Hematology consulted, regulations appreciated. Per hematology, hold Arixtra if platelets less than 50, currently awaiting today's results however patient is refusing lab draws. No hemoptysis. Currently acquired pneumonia-resolved, status post treatment. Acute hypoxemic respiratory failure: resolved. Patient was intubated on 05/20/17 and extubated on 05/27/17. Now tolerating oxygen per nasal cannula. Continue to decrease prednisone, continue bronchodilators. Small bowel obstruction: Resolved, continue pured diet per speech therapy. Continue bowel regimen. Having fevers possible aspiration will check a chest x-ray again DVT prophylaxis: SCDs. Hold Arixtra as above. Discharge Planning Pending some degree of improvement Problem Qualifiers (1) Respiratory failure: Elmer Hess DO Jun 16, 2017 10:39
[2017-06-16] MEDS ORDERED: RESP: ALBUTEROL 2.5 MG/IPRATROPIUM 0.5 MG NEB (PRN) NEB (10:45)
[2017-06-16] MEDS ORDERED: guaiFENesin SOLUTION 200 MG/10 ML CUP PO PRN (10:45)
[2017-06-16] MEDS ORDERED: methylPREDNISolone SOD SUCC 125 MG/2 ML VIAL IV PUSH ONE (11:00)
--- NOTE | 2017-06-16 11:21 | RADRPT ---
EXAM DATE/TIME: 06/16/2017 11:01 [place] COMPARISON: CHEST SINGLE AP, June 14, 2017, 13:15. INDICATIONS : Short of breath. MEDICAL HISTORY : Chronic obstructive pulmonary disease. Cardiovascular disease. Hypertension. SURGICAL HISTORY : None. ENCOUNTER: Initial ACUITY: 3 days PAIN SCORE: Non-responsive. LOCATION: Bilateral chest FINDINGS: A single view of the chest demonstrates worsening bibasilar airspace disease. Heart size is normal. D egenerative spurring of the dorsal spine. Osseous structures are intact. CONCLUSION: Worsening bibasilar airspace disease. Pattern suggests atelectasis or developing infiltrates Terry Bartlett MD on June 16, 2017 at 11:17 Board Certified Radiologist. This report was verified electronically.
[2017-06-16 11:45] LABS: ALT (GPT) 37 U/L (12-78)
[2017-06-16 11:48] LABS: ALKALINE PHOSPHATASE 102 U/L (45-117); TOTAL BILIRUBIN ADULT 0.7 MG/DL (0.2-1.0); TOTAL PROTEIN 6.3 GM/DL (6.4-8.2); TROPONIN I 0.03 NG/ML (0.02-0.05)
[2017-06-16 11:57] LABS: ALBUMIN 2.5 GM/DL (3.4-5.0); AST (GOT) 34 U/L (15-37); BICARBONATE 26.6 MEQ/L (21.0-32.0); BLOOD UREA NITROGEN 21 MG/DL (7-18); CALCIUM 8.4 MG/DL (8.5-10.1); CHLORIDE 101 MEQ/L (98-107); CREATININE 0.91 MG/DL (0.60-1.30); GLOMERULAR FILTRATION RATE 99 ML/MIN (>89); GLUCOSE,RANDOM 75 MG/DL (74-106); SODIUM (NA) 135 MEQ/L (136-145)
[2017-06-16] MEDS: methylPREDNISolone SOD SUCC 125 MG/2 ML VIAL IV PUSH SCH ×2 (12:00→17:43)
[2017-06-16 12:14] LABS: FOLATE 13.2 NG/ML (3.1-17.5)
[2017-06-16] MEDS: VANCOMYCIN 1,500 MG/NS 500 ML IV SCH ×4 (12:23)
--- NOTE | 2017-06-16 15:11 | PD.ONC.PN ---
Subjective Subjective Remarks Afebrile Pt upset, minimal response to questions Wants to go home Denies pain Apparently his O2 sats were in the 70s were earlier today Objective Data Date Time Temp Pulse Resp B/P (MAP) Pulse Ox O2 Delivery O2 Flow Rate FiO2 06/16/17 12:00 101.7 103 18 158/75 (102) 92 06/16/17 08:00 98.7 97 17 166/85 (112) 96 06/16/17 00:00 98.4 93 16 127/66 (86) 92 06/15/17 20:00 97.5 83 17 124/62 (82) 92 06/15/17 16:00 98.0 80 20 145/78 (100) 92 Result Diagram: 06/14/17 1854 06/16/17 1104 Laboratory Results Laboratory Tests Test 06/16/17 10:54 06/16/17 11:04 Blood Gas Puncture Site RT RADIAL Blood Gas Patient Temperature 98.6 Blood Gas HCO3 25 mmol/L Blood Gas Base Excess 1.6 mmol/L Blood Gas Oxygen Saturation 88 % Arterial Blood pH 7.50 Arterial Blood Partial Pressure CO2 32 mmHg Arterial Blood Partial Pressure O2 57 mmHg Arterial Blood Oxygen Content 17.2 Vol % Arterial Blood Carboxyhemoglobin 1.8 % Arterial Blood Methemoglobin 0.8 % Blood Gas Hemoglobin 13.9 G/DL Oxygen Delivery Device NASAL CANNULA Blood Gas Liter Flow 4 L/M Blood Urea Nitrogen 21 MG/DL Creatinine 0.91 MG/DL Random Glucose 75 MG/DL Total Protein 6.3 GM/DL Albumin 2.5 GM/DL Calcium Level 8.4 MG/DL Alkaline Phosphatase 102 U/L Aspartate Amino Transf (AST/SGOT) 34 U/L Alanine Aminotransferase (ALT/SGPT) 37 U/L Total Bilirubin 0.7 MG/DL Sodium Level 135 MEQ/L Potassium Level 4.4 MEQ/L Chloride Level 101 MEQ/L Carbon Dioxide Level 26.6 MEQ/L Anion Gap 7 MEQ/L Estimat Glomerular Filtration Rate 99 ML/MIN Lactate Dehydrogenase 433 U/L Total Creatine Kinase 34 U/L Troponin I 0.03 NG/ML Vitamin B12 Level 966 PG/ML Folate 13.2 NG/ML Culture Results Microbiology Date/Time Source Procedure Growth Status 06/14/17 13:51 Blood Peripheral Aerobic Blood Culture - Preliminary NO GROWTH IN 2 DAYS Resulted 06/14/17 13:51 Blood Peripheral Anaerobic Blood Culture - Preliminary NO GROWTH IN 2 DAYS Resulted Imaging Studies Last 24 hours Impressions Chest X-Ray 06/16/17 0000 Signed Impressions: Service Date/Time: Friday, June 16, 2017 11:01 - CONCLUSION: Worsening bibasilar airspace disease. Pattern suggests atelectasis or developing infiltrates Terry Bartlett MD Administered Medications Medications (Trade) Dose Ordered Sig/Deacon Route PRN Reason Start Time Stop Time Status Last Admin Dose Admin Sodium Chloride (NS Flush) 2 ml UNSCH PRN IV FLUSH FLUSH AFTER USING IV ACCESS 05/13/17 13:15 05/28/17 05:08 Sodium Chloride (NS Flush) 2 ml BID IV FLUSH 05/13/17 21:00 06/14/17 21:37 Ondansetron HCl (Zofran Inj) 4 mg Q6HR PRN IV PUSH nausea 05/13/17 13:15 05/28/17 10:36 Collagenase (Santyl Oint) 1 applic DAILY TOPICAL 05/15/17 09:00 06/09/17 09:39 Lisinopril (Prinivil) 2.5 mg DAILY PO 05/15/17 09:00 Future Hold 06/13/17 11:02 Miscellaneous (Pill Splitter) 1 ea UNSCH PRN OTHER SEE LABEL COMMENTS 05/14/17 16:00 05/29/17 09:10 Bisacodyl (Dulcolax Supp) 10 mg DAILY RECTAL 05/16/17 09:00 06/08/17 15:12 Magnesium Hydroxide (Milk Of Magnesia Liq) 30 ml QID PRN PO CONSTIPATION 05/17/17 16:30 06/11/17 00:23 Chlorhexidine Gluconate (Peridex 0.12% Liq) 15 ml BID@08,20 MT 05/20/17 20:00 06/14/17 08:00 Docusate Sodium (Colace Liq) 100 mg BID PO 05/24/17 09:00 06/14/17 21:36 Prednisone (Deltasone) 20 mg BID PO 05/29/17 21:00 Future Hold 06/16/17 09:55 Insulin Aspart (NovoLOG SUPPLEMENTAL SCALE) 1 ACHS SLIDING SCALE SQ 05/30/17 17:00 06/15/17 12:00 Quetiapine Fumarate (SEROquel) 25 mg BID PO 06/01/17 13:45 06/16/17 09:55 Fondaparinux (Arixtra Inj) 7.5 mg Q24H SQ 06/04/17 09:00 Future hold 06/16/17 09:56 Carvedilol (Coreg) 3.125 mg Q12HR PO 06/04/17 21:00 06/16/17 09:56 Diltiazem HCl (Cardizem Cd) 120 mg DAILY PO 06/05/17 09:00 06/16/17 09:56 Furosemide (Lasix) 40 mg DAILY PO 06/06/17 09:00 Future Hold 06/14/17 10:19 Potassium Chloride (KCl) 20 meq Q12HR PO 06/05/17 14:45 06/15/17 21:55 Acetaminophen (Tylenol) 650 mg Q4H PRN PO fever 06/13/17 02:00 06/13/17 02:48 Aztreonam 2000 mg/ Sodium Chloride 100 ml @ 200 mls/hr Q8H IV 06/13/17 12:00 06/16/17 12:23 Vancomycin HCl 1500 mg/Sodium Chloride 515 ml @ 257.5 mls/ hr Q12H IV 06/15/17 12:00 Future Hold 06/16/17 12:23 Albuterol/ Ipratropium (Duoneb Neb) 1 ampule Q2HR NEB PRN NEB SHORTNESS OF BREATH 06/16/17 10:45 06/16/17 11:00 Methylprednisolone Sodium Succinate (SoluMEDROL INJ) 60 mg Q6HR IV PUSH 06/16/17 12:00 06/16/17 12:00 Objective Remarks GENERAL: Elderly male, lying in bed currently getting a breathing treatment SKIN: Warm and dry. HEAD: Normocephalic. EYES: No injection or drainage. NECK: Supple, trachea midline. CARDIOVASCULAR: +S1/S2 RESPIRATORY: Clear anteriorly. GASTROINTESTINAL: Abdomen soft, non-tender, nondistended. EXTREMITIES: No cyanosis. No edema NEUROLOGICAL: Normal speech. Awake Assessment/Plan Problem List: (1) Thrombocytopenia ICD Codes: D69.6 - Thrombocytopenia, unspecified Plan: 06/16: 06/15: repeat platelet count showed increase to platelet count of 124K. plt count of 32K likely d/t clumping. 3/31 Hematology was reconsulted b/c platelet down to 32K. No obvious bleeding. Last dose of Arixtra this morning. --HIT negative --started on Arixtra on 06/04 for bilateral LE DVT + non-ambulatory status. (2) History of DVT (deep vein thrombosis) ICD Codes: Z86.718 - Personal history of other venous thrombosis and embolism Status: Chronic Plan: --On Arixtra Assessment 72y/o male with thrombocytopenia and history of bilateral lower extremity DVT. h/o COPD on chronic supplemental oxygen fibrillation, AFib on Coumadin, chronic systolic CHF with EF of 20%, bilateral lower extremity DVT, hypertension. Plan 1. Arixtra was resumed yesterday 2. CBC pending today 3. Continue to monitor for bleeding; monitor blood counts 4. Respiratory management per attending Attending Statement The exam, history, and the medical decision-making described in the above note were completed with the assistance of the mid-level provider. I reviewed and agree with the findings presented. I attest that I had a [id number] encounter with the patient on the same day, and personally performed and documented my assessment and findings in the medical record. refusing labs wants to be left alone PLT count up check CBC, haptoglobin, LDH, fibrinogen and coags in am continue conniextra Enedelia Ramos Jun 16, 2017 15:11 Aidan Cuevas MD Jun 16, 2017 23:00
[2017-06-16 17:54] LABS: RETIC # 129.9 MIL/L (20.0-150.0)
[2017-06-16 18:12] LABS: TROPONIN I 0.03 NG/ML (0.02-0.05)
[2017-06-16 18:38] LABS: INTERNATIONAL NORMALIZED RATIO 1.1 RATIO; PROTHROMBIN TIME - PATIENT 10.8 SEC (9.8-11.6)
[2017-06-16] MEDS: RESP: ALBUTEROL 2.5 MG/IPRATROPIUM 0.5 MG NEB (SCH) NEB (19:55)
[2017-06-16 20:27] LABS: AUTOMATED NEUTROPHIL # 1.7 TH/MM3 (1.8-7.7); BASOPHIL % 0.1 % (0.0-2.0); HEMATOCRIT 35.1 % (39.0-51.0); HEMOGLOBIN 11.6 GM/DL (13.0-17.0); LYMPH % 7.2 % (9.0-44.0); LYMPHOCYTE # 0.1 TH/MM3 (1.0-4.8); MEAN CELL VOLUME 91.6 FL (80.0-100.0); MEAN CORPUSCULAR HEMOGLOBIN 30.2 PG (27.0-34.0); MEAN PLATELET VOLUME 8.1 FL (7.0-11.0); MONO % 4.9 % (0.0-8.0); MONOCYTE # 0.1 TH/MM3 (0-0.9); NEUT % 87.8 % (16.0-70.0); RED BLOOD COUNT 3.83 MIL/MM3 (4.50-5.90); RED CELL DISTRIBUTION WIDTH 20.3 % (11.6-17.2)
[2017-06-16 20:29] LABS: PLATELET COUNT 145 TH/MM3 (150-450); WHITE BLOOD COUNT 2.1 TH/MM3 (4.0-11.0)
[2017-06-17] VITALS (8 sets, daily range): BP systolic 93–148; BP diastolic 57–77; PULSE 60–79; RESP 18–20; TEMP 97.2–97.8; O2SAT 89–94
[2017-06-17] MEDS: methylPREDNISolone SOD SUCC 125 MG/2 ML VIAL IV PUSH SCH ×4 (00:45→17:41)
[2017-06-17] MEDS: SODIUM CHLORIDE 0.9% FLUSH 10 ML FLUSH IV FLUSH PRN ×2 (00:45→06:17)
[2017-06-17] MEDS: AZTREONAM INJ 2,000 MG in SODIUM CHLORIDE 0.9% INJ 100 ML IV SCH ×3 (05:14→20:02)
[2017-06-17] MEDS: INSULIN ASPART SUPPLEMENTAL SCALE SQ SCH ×4 (08:00→20:15)
[2017-06-17] MEDS: CHLORHEXIDINE 0.12% (ORAL KIT) 15 ML CUP MT SCH ×2 (08:00→20:00)
[2017-06-17] MEDS: QUEtiapine FUMARATE 25 MG TAB PO SCH ×2 (08:19→20:00)
[2017-06-17] MEDS: DOCUSATE SODIUM 100 MG/10 ML UDC PO SCH ×2 (08:19→20:01)
[2017-06-17] MEDS: CARVEDILOL 6.25 MG TAB PO SCH ×2 (08:20→20:01)
[2017-06-17] MEDS: DILTIAZEM-CD 120 MG CAP ER PO SCH (08:20)
[2017-06-17] MEDS: POTASSIUM CHLORIDE 20 MEQ CONTROLLED RELEASE TAB PO SCH ×2 (08:20→20:03)
[2017-06-17] MEDS: BISACODYL 10 MG SUPP RECTAL SCH (08:21)
[2017-06-17] MEDS: FONDAPARINUX SODIUM 7.5 MG/0.6 ML SYRINGE SQ SCH (08:21)
[2017-06-17] MEDS: COLLAGENASE OINT 30 GM TUBE TOPICAL SCH (08:24)
[2017-06-17] MEDS: SODIUM CHLORIDE 0.9% FLUSH 10 ML FLUSH IV FLUSH SCH ×2 (08:25→20:03)
[2017-06-17] MEDS: RESP: ALBUTEROL 2.5 MG/IPRATROPIUM 0.5 MG NEB (SCH) NEB ×3 (08:35→19:48)
[2017-06-17 08:46] LABS: PROTHROMBIN TIME - PATIENT 10.6 SEC (9.8-11.6)
[2017-06-17 09:01] LABS: ALKALINE PHOSPHATASE 84 U/L (45-117); ALT (GPT) 29 U/L (12-78); DIRECT BILIRUBIN ADULT 0.2 MG/DL (0.0-0.2); FREE T4 1.08 NG/DL (0.76-1.46); INDIRECT BILIRUBIN 0.3 MG/DL (0.0-0.8); PHOSPHORUS 3.3 MG/DL (2.5-4.9); RANDOM VANCOMYCIN 13.9 COMMENT; TOTAL BILIRUBIN ADULT 0.5 MG/DL (0.2-1.0); TOTAL PROTEIN 5.6 GM/DL (6.4-8.2); TROPONIN I 0.02 NG/ML (0.02-0.05)
[2017-06-17 10:04] LABS: BLOOD UREA NITROGEN 20 MG/DL (7-18); CREATININE 0.63 MG/DL (0.60-1.30); GLOMERULAR FILTRATION RATE 151 ML/MIN (>89)
[2017-06-17 10:05] LABS: ALBUMIN 2.1 GM/DL (3.4-5.0); CALCIUM 8.2 MG/DL (8.5-10.1); GLUCOSE,RANDOM 146 MG/DL (74-106)
[2017-06-17 10:06] LABS: AST (GOT) 24 U/L (15-37); BICARBONATE 23.4 MEQ/L (21.0-32.0); CHLORIDE 107 MEQ/L (98-107); SODIUM (NA) 138 MEQ/L (136-145)
[2017-06-17] MEDS ORDERED: PHARMACY ORDERED LAB ONE (11:45)
[2017-06-17] MEDS: VANCOMYCIN INJ 1,250 MG in SODIUM CHLOR 0.9% 250 ML INJ 250 ML IV SCH (13:10)
--- NOTE | 2017-06-17 13:55 | PD.ONC.PN ---
Subjective Subjective Remarks Afebrile overnight. Patient resting in bed going through mail. doesn't want to be bothered. states he always has problems with his blood. wants to leave the hospital. refused CBC blood draw twice today. Objective Data Date Time Temp Pulse Resp B/P (MAP) Pulse Ox O2 Delivery O2 Flow Rate FiO2 06/17/17 12:00 97.3 74 19 146/69 (94) 93 06/17/17 08:35 92 Simple Mask 8.00 06/17/17 08:00 93 Simple Mask 3.00 06/17/17 08:00 97.2 63 18 148/76 (100) 93 06/17/17 00:00 97.8 60 18 93/57 (69) 94 06/16/17 21:42 Simple Mask 6.00 06/16/17 20:00 97.1 69 18 154/69 (97) 96 06/16/17 19:56 96 Simple Mask 6.00 06/16/17 16:00 98.3 88 18 142/69 (93) 90 Result Diagram: 06/16/17 1713 06/17/17 0741 Laboratory Results Laboratory Tests Test 06/16/17 17:13 06/17/17 07:41 06/17/17 07:44 White Blood Count 2.1 TH/MM3 Red Blood Count 3.83 MIL/MM3 Hemoglobin 11.6 GM/DL Hematocrit 35.1 % Mean Corpuscular Volume 91.6 FL Mean Corpuscular Hemoglobin 30.2 PG Mean Corpuscular Hemoglobin Concent 33.0 % Red Cell Distribution Width 20.3 % Platelet Count 145 TH/MM3 Mean Platelet Volume 8.1 FL Neutrophils (%) (Auto) 87.8 % Lymphocytes (%) (Auto) 7.2 % Monocytes (%) (Auto) 4.9 % Eosinophils (%) (Auto) 0.0 % Basophils (%) (Auto) 0.1 % Neutrophils # (Auto) 1.7 TH/MM3 Lymphocytes # (Auto) 0.1 TH/MM3 Monocytes # (Auto) 0.1 TH/MM3 Eosinophils # (Auto) 0.0 TH/MM3 Basophils # (Auto) 0.0 TH/MM3 CBC Comment AUTO DIFF Differential Comment AUTO DIFF CONFIRMED Platelet Estimate LOW Platelet Morphology Comment CLUMPED Reticulocyte Count 3.0 % Absolute Reticulocyte Count 129.9 MIL/L Prothrombin Time 10.8 SEC 10.6 SEC Prothromb Time International Ratio 1.1 RATIO 1.0 RATIO Activated Partial Thromboplast Time 25.9 SEC Fibrinogen 311 mg/dL 353 mg/dL Total Creatine Kinase 22 U/L 29 U/L Troponin I 0.03 NG/ML 0.02 NG/ML Blood Urea Nitrogen 20 MG/DL Creatinine 0.63 MG/DL Random Glucose 146 MG/DL Total Protein 5.6 GM/DL Albumin 2.1 GM/DL Calcium Level 8.2 MG/DL Phosphorus Level 3.3 MG/DL Magnesium Level 2.0 MG/DL Alkaline Phosphatase 84 U/L Aspartate Amino Transf (AST/SGOT) 24 U/L Alanine Aminotransferase (ALT/SGPT) 29 U/L Lactate Dehydrogenase 388 U/L Total Bilirubin 0.5 MG/DL Direct Bilirubin 0.2 MG/DL Sodium Level 138 MEQ/L Potassium Level 4.5 MEQ/L Chloride Level 107 MEQ/L Carbon Dioxide Level 23.4 MEQ/L Anion Gap 8 MEQ/L Estimat Glomerular Filtration Rate 151 ML/MIN Indirect Bilirubin 0.3 MG/DL Free Thyroxine 1.08 NG/DL Thyroid Stimulating Hormone 3rd Gen 0.255 uIU/ML Random Vancomycin Level 13.9 COMMENT Haptoglobin 146 MG/DL Culture Results Microbiology Date/Time Source Procedure Growth Status 06/16/17 17:13 Blood Peripheral Aerobic Blood Culture - Preliminary NO GROWTH IN 1 DAY Resulted 06/16/17 17:13 Blood Peripheral Anaerobic Blood Culture - Preliminary NO GROWTH IN 1 DAY Resulted 06/16/17 17:08 Blood Peripheral Aerobic Blood Culture - Preliminary NO GROWTH IN 1 DAY Resulted 06/16/17 17:08 Blood Peripheral Anaerobic Blood Culture - Preliminary NO GROWTH IN 1 DAY Resulted Administered Medications Medications (Trade) Dose Ordered Sig/Deacon Route PRN Reason Start Time Stop Time Status Last Admin Dose Admin Sodium Chloride (NS Flush) 2 ml UNSCH PRN IV FLUSH FLUSH AFTER USING IV ACCESS 05/13/17 13:15 06/17/17 06:17 Sodium Chloride (NS Flush) 2 ml BID IV FLUSH 05/13/17 21:00 06/17/17 08:25 Ondansetron HCl (Zofran Inj) 4 mg Q6HR PRN IV PUSH nausea 05/13/17 13:15 05/28/17 10:36 Collagenase (Santyl Oint) 1 applic DAILY TOPICAL 05/15/17 09:00 06/17/17 08:24 Lisinopril (Prinivil) 2.5 mg DAILY PO 05/15/17 09:00 Future Hold 06/13/17 11:02 Miscellaneous (Pill Splitter) 1 ea UNSCH PRN OTHER SEE LABEL COMMENTS 05/14/17 16:00 05/29/17 09:10 Bisacodyl (Dulcolax Supp) 10 mg DAILY RECTAL 05/16/17 09:00 06/08/17 15:12 Magnesium Hydroxide (Milk Of Magnesia Liq) 30 ml QID PRN PO CONSTIPATION 05/17/17 16:30 06/11/17 00:23 Chlorhexidine Gluconate (Peridex 0.12% Liq) 15 ml BID@08,20 MT 05/20/17 20:00 06/14/17 08:00 Docusate Sodium (Colace Liq) 100 mg BID PO 05/24/17 09:00 06/17/17 08:19 Prednisone (Deltasone) 20 mg BID PO 05/29/17 21:00 Future Hold 06/16/17 09:55 Insulin Aspart (NovoLOG SUPPLEMENTAL SCALE) 1 ACHS SLIDING SCALE SQ 05/30/17 17:00 06/17/17 13:10 Quetiapine Fumarate (SEROquel) 25 mg BID PO 06/01/17 13:45 06/17/17 08:19 Fondaparinux (Arixtra Inj) 7.5 mg Q24H SQ 06/04/17 09:00 Future hold 06/17/17 08:21 Carvedilol (Coreg) 3.125 mg Q12HR PO 06/04/17 21:00 06/17/17 08:20 Diltiazem HCl (Cardizem Cd) 120 mg DAILY PO 06/05/17 09:00 06/17/17 08:20 Furosemide (Lasix) 40 mg DAILY PO 06/06/17 09:00 Future Hold 06/14/17 10:19 Potassium Chloride (KCl) 20 meq Q12HR PO 06/05/17 14:45 06/17/17 08:20 Acetaminophen (Tylenol) 650 mg Q4H PRN PO fever 06/13/17 02:00 06/13/17 02:48 Albuterol/ Ipratropium (Duoneb Neb) 1 ampule Q6HR WHILE AWAKE NEB NEB 06/16/17 14:00 06/17/17 08:35 Albuterol/ Ipratropium (Duoneb Neb) 1 ampule Q2HR NEB PRN NEB SHORTNESS OF BREATH 06/16/17 10:45 06/16/17 11:00 Methylprednisolone Sodium Succinate (SoluMEDROL INJ) 60 mg Q6HR IV PUSH 06/16/17 12:00 06/17/17 11:41 Vancomycin HCl 1250 mg/Sodium Chloride 262.5 ml @ 250 mls/hr Q18H IV 06/17/17 12:00 06/17/17 13:10 Aztreonam 2000 mg/ Sodium Chloride 100 ml @ 200 mls/hr Q8H IV 06/17/17 13:00 06/17/17 11:41 Objective Remarks GENERAL: Elderly male, upright in bed, going through mail. SKIN: Warm and dry. HEAD: Normocephalic. EYES: No injection or drainage. NECK: Supple, trachea midline. CARDIOVASCULAR: +S1/S2 RESPIRATORY: anterior townsend clear. GASTROINTESTINAL: Abdomen soft, non-tender, nondistended. EXTREMITIES: No cyanosis NEUROLOGICAL: awake, normal speech. Assessment/Plan Problem List: (1) Thrombocytopenia ICD Codes: D69.6 - Thrombocytopenia, unspecified Plan: 06/17: CBC refused for today. coags WNL. continue Arixtra. 06/15: repeat platelet count showed increase to platelet count of 124K. plt count of 32K likely d/t clumping. 06/14 Hematology was reconsulted b/c platelet down to 32K. No obvious bleeding. Last dose of Arixtra this morning. --HIT negative --started on Arixtra on 06/04 for bilateral LE DVT + non-ambulatory status. (2) History of DVT (deep vein thrombosis) ICD Codes: Z86.718 - Personal history of other venous thrombosis and embolism Status: Chronic Plan: --On Arixtra Assessment 72y/o male with thrombocytopenia and history of bilateral lower extremity DVT. h/o COPD on chronic supplemental oxygen fibrillation, AFib on Coumadin, chronic systolic CHF with EF of 20%, bilateral lower extremity DVT, hypertension. Plan 1. continue Arixtra 2. monitor CBC Attending Statement The exam, history, and the medical decision-making described in the above note were completed with the assistance of the mid-level provider. I reviewed and agree with the findings presented. I attest that I had a [id number] encounter with the patient on the same day, and personally performed and documented my assessment and findings in the medical record PLT count > 150 continue arixtra will sign-off Pls call if any questions Susu Dyson Jun 17, 2017 13:55 Aidan Cuevas MD Jun 18, 2017 00:26
--- NOTE | 2017-06-17 17:47 | HHI.PR ---
Subjective Remarks This morning patient on a simple mask at 8 L/min The patient denies any chest pain or shortness of breath. He states that his breathing is back to his usual normal. Patient is afebrile overnight. Objective Vitals Vital Signs Date Time Temp Pulse Resp B/P (MAP) Pulse Ox O2 Delivery O2 Flow Rate FiO2 06/17/17 16:00 97.2 74 18 119/77 (91) 93 06/17/17 12:00 97.3 74 19 146/69 (94) 93 06/17/17 08:35 92 Simple Mask 8.00 06/17/17 08:00 93 Simple Mask 3.00 06/17/17 08:00 97.2 63 18 148/76 (100) 93 06/17/17 00:00 97.8 60 18 93/57 (69) 94 06/16/17 21:42 Simple Mask 6.00 06/16/17 20:00 97.1 69 18 154/69 (97) 96 06/16/17 19:56 96 Simple Mask 6.00 I/O 06/16/17 06/16/17 06/16/17 06/17/17 06/17/17 06/17/17 07:00 15:00 23:00 07:00 15:00 23:00 Intake Total 580 ml 700 ml 262.5 ml Output Total 550 ml 550 ml Balance 30 ml 150 ml 262.5 ml Intake Oral 480 ml 600 ml IV Total 100 ml 100 ml 262.5 ml Output Urine Total 550 ml 550 ml # Bowel Movements 1 0 Result Diagram: 06/16/17 1713 06/17/17 0741 Imaging Last 72 hours Impressions Chest X-Ray 06/16/17 0000 Signed Impressions: Service Date/Time: Friday, June 16, 2017 11:01 - CONCLUSION: Worsening bibasilar airspace disease. Pattern suggests atelectasis or developing infiltrates Terry Bartlett MD Procedures 05/20/17 intubation 05/21/17 central line placement, right subclavian Medications and IVs Current Medications Medications (Trade) Dose Ordered Sig/Deacon Route Start Time Stop Time Status Last Admin (NS Flush) 2 ml UNSCH PRN IV FLUSH 05/13/17 13:15 06/17/17 06:17 (NS Flush) 2 ml BID IV FLUSH 05/13/17 21:00 06/17/17 08:25 (Narcan Inj) 0.4 mg UNSCH PRN IV PUSH 05/13/17 13:15 (Zofran Inj) 4 mg Q6HR PRN IV PUSH 05/13/17 13:15 05/28/17 10:36 (Santyl Oint) 1 applic DAILY TOPICAL 05/15/17 09:00 06/17/17 08:24 (Prinivil) 2.5 mg DAILY PO 05/15/17 09:00 Future Hold 06/13/17 11:02 (Pill Splitter) 1 ea UNSCH PRN OTHER 05/14/17 16:00 05/29/17 09:10 (Dulcolax Supp) 10 mg DAILY RECTAL 05/16/17 09:00 06/08/17 15:12 (Milk Of Magnesia Liq) 30 ml QID PRN PO 05/17/17 16:30 06/11/17 00:23 (Peridex 0.12% Liq) 15 ml BID@08,20 MT 05/20/17 20:00 06/14/17 08:00 (D50w (Vial) Inj) 50 ml UNSCH PRN IV PUSH 05/21/17 12:45 (Glucagon Inj) 1 mg UNSCH PRN OTHER 05/21/17 12:45 (Colace Liq) 100 mg BID PO 05/24/17 09:00 06/17/17 08:19 (Trandate Inj) 10 mg Q4H PRN IV PUSH 05/28/17 08:00 (Deltasone) 20 mg BID PO 05/29/17 21:00 Future Hold 06/16/17 09:55 (NovoLOG SUPPLEMENTAL SCALE) 1 ACHS SLIDING SCALE SQ 05/30/17 17:00 06/17/17 17:41 (Reglan Inj) 10 mg Q8HR PRN IV PUSH 05/30/17 16:00 (Vasotec Inj) 1.25 mg Q6H PRN IV PUSH 05/31/17 15:15 (SEROquel) 25 mg BID PO 06/01/17 13:45 06/17/17 08:19 (Arixtra Inj) 7.5 mg Q24H SQ 06/04/17 09:00 Future hold 06/17/17 08:21 (Coreg) 3.125 mg Q12HR PO 06/04/17 21:00 06/17/17 08:20 (Cardizem Cd) 120 mg DAILY PO 06/05/17 09:00 06/17/17 08:20 (Lasix) 40 mg DAILY PO 06/06/17 09:00 Future Hold 06/14/17 10:19 (KCl) 20 meq Q12HR PO 06/05/17 14:45 06/17/17 08:20 (Tylenol) 650 mg Q4H PRN PO 06/13/17 02:00 06/13/17 02:48 Pharmacy Profile Note 0 ml @ 0 mls/hr UNSCH OTHER 06/13/17 10:30 (Duoneb Neb) 1 ampule Q6HR WHILE AWAKE NEB NEB 06/16/17 14:00 06/17/17 08:35 (Duoneb Neb) 1 ampule Q2HR NEB PRN NEB 06/16/17 10:45 06/16/17 11:00 (Robitussin Liq) 200 mg Q4H PRN PO 06/16/17 10:45 (SoluMEDROL INJ) 60 mg Q6HR IV PUSH 06/16/17 12:00 06/17/17 17:41 Vancomycin HCl 1250 mg/Sodium Chloride 262.5 ml @ 250 mls/hr Q18H IV 06/17/17 12:00 06/17/17 13:10 Miscellaneous Information SPECIFIC LAB TO BE DRAWN:VANCOMYCIN TROUGH DATE TO... ONCE ONCE .XX 06/19/17 17:45 06/19/17 17:46 Aztreonam 2000 mg/ Sodium Chloride 100 ml @ 200 mls/hr Q8H IV 06/17/17 13:00 06/17/17 11:41 (Lasix Inj) 40 mg BID@ IV PUSH 06/17/17 18:00 UNV A/P Problem List: (1) Respiratory failure ICD Code: J96.90 - Respiratory failure, unspecified, unspecified whether with hypoxia or hypercapnia (2) Acute hypoxemic respiratory failure ICD Code: J96.01 - Acute respiratory failure with hypoxia Status: Acute (3) Thrombocytopenia ICD Code: D69.6 - Thrombocytopenia, unspecified (4) Acute renal insufficiency ICD Code: N28.9 - Disorder of kidney and ureter, unspecified (5) COPD (chronic obstructive pulmonary disease) ICD Code: J44.9 - Chronic obstructive pulmonary disease, unspecified (6) Atrial fibrillation ICD Code: I48.91 - Unspecified atrial fibrillation Status: Chronic (7) long term care administrator (current) use of anticoagulants ICD Code: Z79.01 - long term care administrator (current) use of anticoagulants Status: Acute Assessment and Plan This is a 72-year-old male, initially admitted to intensive care unit for shortness of breath, found to have pneumonia, the patient was intubated and mechanically ventilated. Extubated on 05/27/17. 1. Acute hypoxemic respiratory failure. Due to pneumonia, patient refusing interventions. Patient initially treated with IV vancomycin IV aztreonam given that the patient is penicillin allergic. Sputum culture was negative, blood cultures negative so far. Continue supplemental oxygen to keep oxygen saturation more than 92%. 2. Hypotension. Now resolved. Initially lisinopril and Lasix were discontinued. Blood pressure now stable. Will resume Lasix. 3. Agitation. The patient does not have any capacity to refuse medical intervention. The catheter has been consulted. Patient very calm and not agitated. Continue Seroquel 25 minutes p.o. twice daily. 4. Weakness and dependency on ADL's. Patient was appropriate to be discharged at this time to senior care. 5. Acute on chronic systolic congestive heart failure. Continue Coreg, long- acting Cardizem. Aldactone was placed on hold relative hypotension. Resume Lasix today. Will resume Aldactone tomorrow if BP stable. 6. Atrial fibrillation. Rate controlled, continue diltiazem. 7. Diabetes mellitus with hyperglycemia. Blood sugars labile, however severely elevated today in the 200s range. Will decrease Solu-Medrol down to 40 mg IV every 12 hours. Continue SSI with insulin NovoLog continue to monitor Accu-Cheks. 8. Bilateral extremity DVT. On Arixtra, continue since platelets are improving. Hematology following. 9. Thrombocytopenia. Improving and trending up. Continue to monitor CBC. Hematology consulted, recommendations appreciated. 10. Community-acquired pneumonia. Status post treatment resolving. 11. Small bowel obstruction. Now resolved. Continue pured diet per speech therapy. Continue with bowel regimen. 12. Fevers. No further fever since 06/16. Continue to monitor vital signs. Continue IV vancomycin and IV aztreonam. Add IV Flagyl to cover for aspiration. 13. Leukopenia. Monitor CBC. Hematology following. On Arixtra. Will follow up hematology recommendations. Discharge Planning Pending resolution of fevers, improvement of WBC and clearance by hematology. Problem Qualifiers (1) Respiratory failure: Vernon Moore MD Jun 17, 2017 17:46
[2017-06-17] MEDS ORDERED: FUROSEMIDE 40 MG/4 ML VIAL IV PUSH SCH (18:00)
[2017-06-17 18:02] LABS: AUTOMATED NEUTROPHIL # 5.2 TH/MM3 (1.8-7.7); BASOPHIL % 0.2 % (0.0-2.0); HEMATOCRIT 42.5 % (39.0-51.0); HEMOGLOBIN 14.3 GM/DL (13.0-17.0); LYMPH % 7.6 % (9.0-44.0); LYMPHOCYTE # 0.5 TH/MM3 (1.0-4.8); MEAN CELL VOLUME 91.9 FL (80.0-100.0); MEAN CORPUSCULAR HGB CONC 33.7 % (32.0-36.0); MONO % 6.5 % (0.0-8.0); MONOCYTE # 0.4 TH/MM3 (0-0.9); NEUT % 85.7 % (16.0-70.0); RED BLOOD COUNT 4.62 MIL/MM3 (4.50-5.90)
[2017-06-17 18:04] LABS: PLATELET COUNT 154 TH/MM3 (150-450)
[2017-06-17] MEDS: FUROSEMIDE 40 MG TAB PO SCH (20:01)
[2017-06-17] MEDS: metroNIDAZOLE 500 MG INJ 100 ML IV SCH (20:01)
[2017-06-18] MEDS: SODIUM CHLORIDE 0.9% FLUSH 10 ML FLUSH IV FLUSH PRN (01:23)
[2017-06-18] MEDS: methylPREDNISolone SOD SUCC 40 MG/1 ML VIAL IV PUSH SCH ×3 (01:23→23:45)
[2017-06-18] MEDS: metroNIDAZOLE 500 MG INJ 100 ML IV SCH ×3 (04:59→20:33)
[2017-06-18] MEDS: AZTREONAM INJ 2,000 MG in SODIUM CHLORIDE 0.9% INJ 100 ML IV SCH ×3 (05:00→20:33)
[2017-06-18] MEDS: VANCOMYCIN INJ 1,250 MG in SODIUM CHLOR 0.9% 250 ML INJ 250 ML IV SCH (05:02)
[2017-06-18 07:48] VITALS: BP 126/71; PULSE 78; RESP 18; TEMP 97.8; O2SAT 94
[2017-06-18] MEDS: INSULIN ASPART SUPPLEMENTAL SCALE SQ SCH ×4 (08:00→20:33)
[2017-06-18] MEDS: CHLORHEXIDINE 0.12% (ORAL KIT) 15 ML CUP MT SCH ×2 (08:00→20:00)
[2017-06-18 08:36] VITALS: O2SAT 93
[2017-06-18] MEDS: RESP: ALBUTEROL 2.5 MG/IPRATROPIUM 0.5 MG NEB (SCH) NEB ×3 (08:36→19:48)
[2017-06-18] MEDS: POTASSIUM CHLORIDE 20 MEQ CONTROLLED RELEASE TAB PO SCH ×2 (08:40→20:32)
[2017-06-18] MEDS: DILTIAZEM-CD 120 MG CAP ER PO SCH (08:40)
[2017-06-18] MEDS: QUEtiapine FUMARATE 25 MG TAB PO SCH ×2 (08:40→20:33)
[2017-06-18] MEDS: CARVEDILOL 6.25 MG TAB PO SCH ×2 (08:40→20:32)
[2017-06-18] MEDS: FUROSEMIDE 40 MG TAB PO SCH (08:40)
[2017-06-18] MEDS: DOCUSATE SODIUM 100 MG/10 ML UDC PO SCH ×2 (08:40→20:33)
[2017-06-18] MEDS: BISACODYL 10 MG SUPP RECTAL SCH (08:41)
[2017-06-18] MEDS: FONDAPARINUX SODIUM 7.5 MG/0.6 ML SYRINGE SQ SCH (08:41)
[2017-06-18] MEDS: SODIUM CHLORIDE 0.9% FLUSH 10 ML FLUSH IV FLUSH SCH ×2 (08:41→20:38)
[2017-06-18] MEDS: COLLAGENASE OINT 30 GM TUBE TOPICAL SCH (08:43)
[2017-06-18 12:00] VITALS: BP 130/74; PULSE 77; RESP 18; TEMP 97.4; O2SAT 91
--- NOTE | 2017-06-18 12:18 | HHI.PR ---
Subjective Remarks Patient is awake Still on simple mask at 8 L. Denies chest pain or shortness of breath. However somewhat confused and I am unable to have a decent conversation with the patient. Objective Vitals Vital Signs Date Time Temp Pulse Resp B/P (MAP) Pulse Ox O2 Delivery O2 Flow Rate FiO2 06/18/17 12:00 97.4 77 18 130/74 (92) 91 06/18/17 08:56 93 Simple Mask 8.00 06/18/17 08:36 93 Simple Mask 8.00 06/18/17 07:48 97.8 78 18 126/71 (89) 94 06/17/17 23:30 97.8 79 18 144/73 (96) 94 06/17/17 21:10 97.4 71 20 127/64 (85) 89 06/17/17 20:02 Simple Mask 8.00 21 06/17/17 19:48 93 Simple Mask 8.00 06/17/17 16:00 97.2 74 18 119/77 (91) 93 I/O 06/17/17 06/17/17 06/17/17 06/18/17 06/18/17 06/18/17 07:00 15:00 23:00 07:00 15:00 23:00 Intake Total 700 ml 262.5 ml 240 ml Output Total 550 ml 400 ml Balance 150 ml 262.5 ml -160 ml Intake Oral 600 ml 240 ml IV Total 100 ml 262.5 ml Output Urine Total 550 ml 400 ml # Bowel Movements 0 1 Result Diagram: 06/17/17 1543 06/17/17 0741 Imaging Last Impressions Chest X-Ray 06/16/17 0000 Signed Impressions: Service Date/Time: Friday, June 16, 2017 11:01 - CONCLUSION: Worsening bibasilar airspace disease. Pattern suggests atelectasis or developing infiltrates Terry Bartlett MD Abdomen X-Ray 05/22/17 0600 Signed Impressions: Service Date/Time: May 10:04 - CONCLUSION: The previously noted dilated small bowel have resolved. NG tube in the stomach. Jeff Foster MD Small Bowel X-Ray 05/14/17 0000 Signed Impressions: Service Date/Time: Sunday, May 14, 2017 11:20 - CONCLUSION: 1. Findings consistent with CT examination and suggestive of high grade obstruction in the distal jejunum/proximal ileum. Kwaku Vences MD Abdomen/Pelvis CT 05/13/17 1005 Signed Impressions: Service Date/Time: Saturday, May 13, 2017 11:36 - CONCLUSION: 1. Mid to distal jejunal small bowel ileus with acute transition characteristic of high grade small bowel obstruction. 2. Uncomplicated colonic diverticulosis. 3. Mild ascites. 4. Uncomplicated colonic diverticulosis. Conor John MD Objective Remarks AAox3 somewhat agitated. NAD. Lungs are clear to auscultation bilaterally. S1-S2 present with regular rate and rhythm Abdomen is soft, nontender nondistended. No edema in lower extremities. Procedures 05/20/17 intubation 05/21/17 central line placement, right subclavian Medications and IVs Current Medications Medications (Trade) Dose Ordered Sig/Deacon Route Start Time Stop Time Status Last Admin (NS Flush) 2 ml UNSCH PRN IV FLUSH 05/13/17 13:15 06/18/17 01:23 (NS Flush) 2 ml BID IV FLUSH 05/13/17 21:00 06/18/17 08:41 (Narcan Inj) 0.4 mg UNSCH PRN IV PUSH 05/13/17 13:15 (Zofran Inj) 4 mg Q6HR PRN IV PUSH 05/13/17 13:15 05/28/17 10:36 (Santyl Oint) 1 applic DAILY TOPICAL 05/15/17 09:00 06/17/17 08:24 (Prinivil) 2.5 mg DAILY PO 05/15/17 09:00 Future Hold 06/13/17 11:02 (Pill Splitter) 1 ea UNSCH PRN OTHER 05/14/17 16:00 05/29/17 09:10 (Dulcolax Supp) 10 mg DAILY RECTAL 05/16/17 09:00 06/08/17 15:12 (Milk Of Magnesia Liq) 30 ml QID PRN PO 05/17/17 16:30 06/11/17 00:23 (Peridex 0.12% Liq) 15 ml BID@08,20 MT 05/20/17 20:00 06/14/17 08:00 (D50w (Vial) Inj) 50 ml UNSCH PRN IV PUSH 05/21/17 12:45 (Glucagon Inj) 1 mg UNSCH PRN OTHER 05/21/17 12:45 (Colace Liq) 100 mg BID PO 05/24/17 09:00 06/18/17 08:40 (Trandate Inj) 10 mg Q4H PRN IV PUSH 05/28/17 08:00 (Deltasone) 20 mg BID PO 05/29/17 21:00 Future Hold 06/16/17 09:55 (NovoLOG SUPPLEMENTAL SCALE) 1 ACHS SLIDING SCALE SQ 05/30/17 17:00 06/17/17 20:15 (Reglan Inj) 10 mg Q8HR PRN IV PUSH 05/30/17 16:00 06/18/17 02:03 (Vasotec Inj) 1.25 mg Q6H PRN IV PUSH 05/31/17 15:15 (SEROquel) 25 mg BID PO 06/01/17 13:45 06/18/17 08:40 (Arixtra Inj) 7.5 mg Q24H SQ 06/04/17 09:00 Future hold 06/18/17 08:41 (Coreg) 3.125 mg Q12HR PO 06/04/17 21:00 06/18/17 08:40 (Cardizem Cd) 120 mg DAILY PO 06/05/17 09:00 06/18/17 08:40 (KCl) 20 meq Q12HR PO 06/05/17 14:45 06/18/17 08:40 (Tylenol) 650 mg Q4H PRN PO 06/13/17 02:00 06/13/17 02:48 Pharmacy Profile Note 0 ml @ 0 mls/hr UNSCH OTHER 06/13/17 10:30 (Duoneb Neb) 1 ampule Q6HR WHILE AWAKE NEB NEB 06/16/17 14:00 06/17/17 19:48 (Duoneb Neb) 1 ampule Q2HR NEB PRN NEB 06/16/17 10:45 06/16/17 11:00 (Robitussin Liq) 200 mg Q4H PRN PO 06/16/17 10:45 Vancomycin HCl 1250 mg/Sodium Chloride 262.5 ml @ 250 mls/hr Q18H IV 06/17/17 12:00 06/18/17 05:02 Miscellaneous Information SPECIFIC LAB TO BE DRAWN:VANCOMYCIN TROUGH DATE TO... ONCE ONCE .XX 06/19/17 17:45 06/19/17 17:46 Aztreonam 2000 mg/ Sodium Chloride 100 ml @ 200 mls/hr Q8H IV 06/17/17 13:00 06/18/17 12:30 (Lasix) 40 mg BID@09,18 PO 06/17/17 19:30 06/18/17 08:40 Metronidazole 100 ml @ 100 mls/hr Q8H IV 06/17/17 20:00 06/18/17 11:29 (SoluMEDROL INJ) 40 mg Q12H IV PUSH 06/18/17 00:00 06/18/17 11:29 A/P Problem List: (1) Respiratory failure ICD Code: J96.90 - Respiratory failure, unspecified, unspecified whether with hypoxia or hypercapnia (2) Acute hypoxemic respiratory failure ICD Code: J96.01 - Acute respiratory failure with hypoxia Status: Acute (3) Thrombocytopenia ICD Code: D69.6 - Thrombocytopenia, unspecified (4) Acute renal insufficiency ICD Code: N28.9 - Disorder of kidney and ureter, unspecified (5) COPD (chronic obstructive pulmonary disease) ICD Code: J44.9 - Chronic obstructive pulmonary disease, unspecified (6) Atrial fibrillation ICD Code: I48.91 - Unspecified atrial fibrillation Status: Chronic (7) prison (current) use of anticoagulants ICD Code: Z79.01 - prison (current) use of anticoagulants Status: Acute Assessment and Plan This is a 72-year-old male, initially admitted to intensive care unit for shortness of breath, found to have pneumonia, the patient was intubated and mechanically ventilated. Extubated on 05/27/17. 1. Acute hypoxemic respiratory failure. Due to pneumonia, patient refusing interventions. Patient initially treated with IV vancomycin IV aztreonam given that the patient is penicillin allergic. Sputum culture was negative, blood cultures negative so far. Continue supplemental oxygen to keep oxygen saturation more than 92%. 06/18 patient started on oral Lasix. We will switch to IV. Patient currently on IV vancomycin, IV aztreonam and IV Flagyl. Discontinue vancomycin and continue IV aztreonam and IV Flagyl. 2. Hypotension. Now resolved. Initially lisinopril and Lasix were discontinued. Blood pressure now stable. 06/18 continue Lasix. Will switch from oral to IV. 3. Agitation. The patient does not have any capacity to refuse medical intervention. The catheter has been consulted. Patient very calm and not agitated. Continue Seroquel 25 minutes p.o. twice daily. 06/18 palliative care following. Appreciate efforts. As per last note on 06/13 from palliative care. The patient's goal as per healthcare surrogate remains aggressive short of no resuscitation. The goal is for patient to discharge to rehab for physical strengthening. 4. Weakness and dependency on ADL's. Patient was appropriate to be discharged at this time to retirement. 5. Acute on chronic systolic congestive heart failure. Continue Coreg, long- acting Cardizem. Aldactone was placed on hold relative hypotension. Resume Lasix today. Will resume Aldactone tomorrow if BP stable. Continue to diuresis with IV Lasix. 6. Atrial fibrillation. Rate controlled, continue diltiazem. 7. Diabetes mellitus with hyperglycemia. Blood sugars labile, however severely elevated today in the 200s range. Will decrease Solu-Medrol down to 40 mg IV every 12 hours. Continue SSI with insulin NovoLog continue to monitor Accu-Cheks. 8. Bilateral extremity DVT. On Arixtra, continue since platelets are improving. Hematology following. 9. Thrombocytopenia. Improving and trending up. Continue to monitor CBC. Hematology consulted, recommendations appreciated. 10. Community-acquired pneumonia. Status post treatment resolving. 11. Small bowel obstruction. Now resolved. Continue pured diet per speech therapy. Continue with bowel regimen. 12. Fevers. No further fever since 06/16. Continue to monitor vital signs. Continue IV vancomycin and IV aztreonam. Add IV Flagyl to cover for aspiration. 13. Leukopenia. Patient's WBC dropped to 2.1 on 06/16. Back to normal at 5 on . Monitor CBC. Hematology following. On Arixtra. Will follow up hematology recommendations. Leukopenia resolved. Discharge Planning Pending resolution of fevers, improvement of WBC and clearance by hematology. Problem Qualifiers (1) Respiratory failure: Vernon Moore MD Jun 18, 2017 12:18
[2017-06-18] MEDS ORDERED: LEVOFLOXACIN 750 MG TAB PO SCH (13:00)
[2017-06-18] MEDS: LEVOFLOXACIN 750 MG TAB PO SCH (14:32)
[2017-06-18 15:59] VITALS: BP 106/59; PULSE 91; RESP 18; TEMP 98.1; O2SAT 91
[2017-06-18] MEDS: FUROSEMIDE 40 MG/4 ML VIAL IV PUSH SCH (17:45)
[2017-06-18 19:48] VITALS: O2SAT 91
[2017-06-18 20:00] VITALS: BP 113/56; PULSE 71; RESP 18; TEMP 97.8; O2SAT 92
[2017-06-18] MEDS: MAGNESIUM HYDROXIDE SUSP 30 ML CUP PO PRN (20:30)
[2017-06-19] VITALS: BP 137/68; PULSE 82; RESP 24; TEMP 97.8; O2SAT 92
[2017-06-19] MEDS: metroNIDAZOLE 500 MG INJ 100 ML IV SCH ×2 (03:55→12:00)
[2017-06-19] MEDS: AZTREONAM INJ 2,000 MG in SODIUM CHLORIDE 0.9% INJ 100 ML IV SCH (03:56)
[2017-06-19 04:02] VITALS: BP 118/67; PULSE 85; RESP 18; TEMP 99.2; O2SAT 92
[2017-06-19 06:13] LABS: HEMATOCRIT 38.4 % (39.0-51.0); HEMOGLOBIN 12.8 GM/DL (13.0-17.0); MEAN CELL VOLUME 91.3 FL (80.0-100.0); MEAN CORPUSCULAR HEMOGLOBIN 30.4 PG (27.0-34.0); MEAN CORPUSCULAR HGB CONC 33.3 % (32.0-36.0); MEAN PLATELET VOLUME 8.4 FL (7.0-11.0); RED BLOOD COUNT 4.21 MIL/MM3 (4.50-5.90); RED CELL DISTRIBUTION WIDTH 19.6 % (11.6-17.2); WHITE BLOOD COUNT 6.1 TH/MM3 (4.0-11.0)
[2017-06-19 06:15] LABS: PLATELET COUNT 221 TH/MM3 (150-450)
[2017-06-19 06:32] LABS: BICARBONATE 28.4 MEQ/L (21.0-32.0); CALCIUM 8.4 MG/DL (8.5-10.1); CREATININE 0.76 MG/DL (0.60-1.30)
--- NOTE | 2017-06-19 06:44 | RADRPT ---
EXAM DATE/TIME: 06/19/2017 06:23 [facility] COMPARISON: CHEST SINGLE AP, June 16, 2017, 11:01. INDICATIONS : Short of breath, evaluate pneumonia MEDICAL HISTORY : Chronic obstructive pulmonary disease. Hypertension Cerebrovascular disease. SURGICAL HISTORY : None. ENCOUNTER: Subsequent ACUITY: 4 - 6 days PAIN SCORE: Non-responsive. LOCATION: Bilateral chest FINDINGS: Bilateral primarily basilar interstitial infiltrates are again noted. Cardiac contours are grossly st able. CONCLUSION: No significant change Kush Amato MD on June 19, 2017 at 6:41 Board Certified Radiologist. This report was verified electronically.
[2017-06-19 08:00] VITALS: BP 110/69; PULSE 94; RESP 19; TEMP 97.8; O2SAT 92
[2017-06-19] MEDS: INSULIN ASPART SUPPLEMENTAL SCALE SQ SCH ×2 (08:00→12:00)
[2017-06-19] MEDS: CHLORHEXIDINE 0.12% (ORAL KIT) 15 ML CUP MT SCH (08:00)
[2017-06-19] MEDS: RESP: ALBUTEROL 2.5 MG/IPRATROPIUM 0.5 MG NEB (SCH) NEB ×2 (08:01→14:20)
[2017-06-19 08:02] VITALS: O2SAT 93
[2017-06-19] MEDS: DOCUSATE SODIUM 100 MG/10 ML UDC PO SCH (08:39)
[2017-06-19] MEDS: DILTIAZEM-CD 120 MG CAP ER PO SCH (08:39)
[2017-06-19] MEDS: QUEtiapine FUMARATE 25 MG TAB PO SCH (08:39)
[2017-06-19] MEDS: FUROSEMIDE 40 MG/4 ML VIAL IV PUSH SCH (08:39)
[2017-06-19] MEDS: CARVEDILOL 6.25 MG TAB PO SCH (08:39)
[2017-06-19] MEDS: POTASSIUM CHLORIDE 20 MEQ CONTROLLED RELEASE TAB PO SCH (08:39)
[2017-06-19] MEDS: BISACODYL 10 MG SUPP RECTAL SCH (08:40)
[2017-06-19] MEDS: FONDAPARINUX SODIUM 7.5 MG/0.6 ML SYRINGE SQ SCH (08:40)
[2017-06-19] MEDS: COLLAGENASE OINT 30 GM TUBE TOPICAL SCH (08:40)
[2017-06-19] MEDS: SODIUM CHLORIDE 0.9% FLUSH 10 ML FLUSH IV FLUSH SCH (08:41)
[2017-06-19 12:00] VITALS: BP 122/57; PULSE 100; RESP 19; TEMP 97.7; O2SAT 92
[2017-06-19] MEDS ORDERED: LEVA750T9 PO (13:12)
[2017-06-19] MEDS ORDERED: METR-1 PO (13:12)
[2017-06-19] MEDS ORDERED: LISI-519 PO (13:12)
[2017-06-19] MEDS ORDERED: [UNRECOGNIZED DRUG - CODE] SQ (13:12)
[2017-06-19] MEDS ORDERED: POTA20TA5 PO (13:12)
[2017-06-19] MEDS ORDERED: CARV6.25 PO (13:12)
[2017-06-19] MEDS ORDERED: NOVOLOGP2 SQ (13:12)
[2017-06-19] MEDS ORDERED: DILT120C50 PO (13:12)
[2017-06-19] MEDS: LEVOFLOXACIN 750 MG TAB PO SCH (13:14)
[2017-06-19] MEDS: methylPREDNISolone SOD SUCC 40 MG/1 ML VIAL IV PUSH SCH (13:14)
--- NOTE | 2017-06-19 13:20 | HHI.DCPOC ---
Discharge Care Plan Diagnosis: (1) Weakness (2) Agitation (3) Acute hypoxemic respiratory failure (4) Atrial fibrillation (5) Acute on chronic congestive heart failure (6) Diabetes mellitus with hyperglycemia (7) DVT (deep venous thrombosis) (8) CAP (community acquired pneumonia) (9) Small bowel obstruction Goals to Promote Your Health * To prevent worsening of your condition and complications * To maintain your health at the optimal level Directions to Meet Your Goals Take your medications as prescribed Follow your dietary instruction Follow activity as directed Keep your appointments as scheduled Take your immunizations and boosters as scheduled If your symptoms worsen call your PCP, if no PCP go to Urgent Care Center or Emergency Room Smoking is Dangerous to Your Health. Avoid second hand smoke Call the 24-hour hour crisis hotline for domestic abuse at Vernon Moore MD Jun 19, 2017 13:20
[2017-06-19] MEDS ORDERED: SERO25TA PO (13:26)
[2017-06-19] MEDS ORDERED: PRED20 PO (13:37)
--- NOTE | 2017-06-19 13:39 | HHI.DS ---
Discharge Summary Admission Date May 13, 2017 at 13:28 Discharge Date: Jun 19, 2017 Admitting Diagnosis left lower lobe pneumonia, small bowel obstruction, (1) Respiratory failure ICD Code: J96.90 - Respiratory failure, unspecified, unspecified whether with hypoxia or hypercapnia (2) Acute hypoxemic respiratory failure ICD Code: J96.01 - Acute respiratory failure with hypoxia Status: Acute (3) Thrombocytopenia ICD Code: D69.6 - Thrombocytopenia, unspecified (4) Acute renal insufficiency ICD Code: N28.9 - Disorder of kidney and ureter, unspecified (5) COPD (chronic obstructive pulmonary disease) ICD Code: J44.9 - Chronic obstructive pulmonary disease, unspecified (6) Atrial fibrillation ICD Code: I48.91 - Unspecified atrial fibrillation Status: Chronic (7) senior care (current) use of anticoagulants ICD Code: Z79.01 - [employer] intermediary (current) use of anticoagulants Status: Acute Procedures 05/20/17 intubation 05/21/17 central line placement, right subclavian Brief History - From Admission starting friday or friday , abdominal pain, nausea vomiting , no bm not passign gas no prior diarrhea CBC/BMP: 06/19/17 0526 06/19/17 0526 Significant Findings Laboratory Tests Test 06/16/17 17:13 06/17/17 07:41 06/17/17 07:44 06/17/17 15:43 White Blood Count 2.1 TH/MM3 (4.0-11.0) Red Blood Count 3.83 MIL/MM3 (4.50-5.90) Hemoglobin 11.6 GM/DL (13.0-17.0) Hematocrit 35.1 % (39.0-51.0) Red Cell Distribution Width 20.3 % (11.6-17.2) 20.0 % (11.6-17.2) Platelet Count 145 TH/MM3 (150-450) Neutrophils (%) (Auto) 87.8 % (16.0-70.0) 85.7 % (16.0-70.0) Lymphocytes (%) (Auto) 7.2 % (9.0-44.0) 7.6 % (9.0-44.0) Neutrophils # (Auto) 1.7 TH/MM3 (1.8-7.7) Lymphocytes # (Auto) 0.1 TH/MM3 (1.0-4.8) 0.5 TH/MM3 (1.0-4.8) Platelet Estimate LOW (NORMAL) Platelet Morphology Comment CLUMPED (NORMAL) Total Creatine Kinase 22 U/L (39-308) 29 U/L (39-308) Blood Urea Nitrogen 20 MG/DL (7-18) Random Glucose 146 MG/DL (74-106) Total Protein 5.6 GM/DL (6.4-8.2) Albumin 2.1 GM/DL (3.4-5.0) Calcium Level 8.2 MG/DL (8.5-10.1) Lactate Dehydrogenase 388 U/L (87-241) Thyroid Stimulating Hormone 3rd Gen 0.255 uIU/ML (0.358-3.740) Test 06/19/17 05:26 Red Blood Count 4.21 MIL/MM3 (4.50-5.90) Hemoglobin 12.8 GM/DL (13.0-17.0) Hematocrit 38.4 % (39.0-51.0) Red Cell Distribution Width 19.6 % (11.6-17.2) Blood Urea Nitrogen 26 MG/DL (7-18) Random Glucose 177 MG/DL (74-106) Calcium Level 8.4 MG/DL (8.5-10.1) Imaging Last Impressions Chest X-Ray 06/19/17 0700 Signed Impressions: Service Date/Time: June 06:23 - CONCLUSION: No significant change Kush Amato MD Abdomen X-Ray 05/22/17 0600 Signed Impressions: Service Date/Time: May 10:04 - CONCLUSION: The previously noted dilated small bowel have resolved. NG tube in the stomach. Jeff Foster MD Small Bowel X-Ray 05/14/17 0000 Signed Impressions: Service Date/Time: Sunday, May 14, 2017 11:20 - CONCLUSION: 1. Findings consistent with CT examination and suggestive of high grade obstruction in the distal jejunum/proximal ileum. Kwaku Vences MD Abdomen/Pelvis CT 05/13/17 1005 Signed Impressions: Service Date/Time: Saturday, May 13, 2017 11:36 - CONCLUSION: 1. Mid to distal jejunal small bowel ileus with acute transition characteristic of high grade small bowel obstruction. 2. Uncomplicated colonic diverticulosis. 3. Mild ascites. 4. Uncomplicated colonic diverticulosis. Conor John MD PE at Discharge AAox3 somewhat agitated. NAD. Lungs are clear to auscultation bilaterally. S1-S2 present with regular rate and rhythm Abdomen is soft, nontender nondistended. No edema in lower extremities. Pt Condition on Discharge: Stable Discharge Disposition: Discharge to SNF Discharge Time: > 30 minutes Discharge Instructions DIET: Follow Instructions for: Heart Healthy Diet Activities you can perform: Regular-No Restrictions Follow up Referrals: PCP Follow-up - 2 Weeks New Medications: Insulin Aspart Inj (Novolog Inj) 1,000 Unit/10 Ml Vial 2-12 UNITS SQ ACHS for Blood Sugar Management, #10 ML 0 Refills Max dose at bedtime ( ) units; sugars less than 70,(0) units; sugars 150-199,(2) units; sugars 200-249,(4) units; sugars 250-299,(7) units; sugars 300-349,(10) units; sugars greater than 349,(12)units Metronidazole (Flagyl) 500 Mg Tab 500 MG PO TID for Infection, #21 TAB 0 Refills Carvedilol (Coreg) 6.25 Mg Tab 3.125 MG PO Q12HR for Blood Pressure Management, #30 TAB Diltiazem CD 24 HR (Diltiazem CD 24 HR) 120 Mg Caper 120 MG PO DAILY for heart rate control, #31 CAP Fondaparinux Inj (Arixtra Inj) 7.5 Mg/0.6 Ml Syr 7.5 MG SQ Q24H for Blood Clot Prevention, #6 INJECTION Levofloxacin (Levaquin) 750 Mg Tablet 750 MG PO Q24H for Infection, #5 TAB-CAP Lisinopril (Lisinopril) 5 Mg Tab 2.5 MG PO DAILY for Blood Pressure Management, #31 TAB Potassium Chloride Microencaps (Potassium Chloride Microencaps) 20 Meq Tab 20 MEQ PO Q12HR for treat low potassium, #30 TAB Prednisone (Prednisone) 20 Mg Tab 20 MG PO BID for Inflammation, #15 TAB Quetiapine (Seroquel) 25 Mg Tab 25 MG PO BID for Agitation, #30 TAB Continued Medications: Aspirin DR (Aspirin DR) 81 Mg Tabdr 81 MG PO DAILY for Prevent Blood Clot, #30 TAB Collagenase (Santyl) 250 Unit/Gram Oin 1 APPLIC TOPICAL DAILY for wound care, #30 TUBE Docusate Sodium (Dok) 100 Mg Cap 100 MG PO BID for Prevent Constipation, #60 CAP Furosemide (Furosemide) 40 Mg Tab 40 MG PO BID@09,18 for Prevent Heart Failure, #60 TAB Warfarin (Coumadin) 5 Mg Tab 5 MG PO DAILY@1600 for Prevent Blood Clot, #30 TAB start tomorrow if INR <3 Discontinued Medications: Carvedilol (Coreg) 6.25 Mg Tab 6.25 MG PO Q12HR for Prevent Heart Failure, #60 TAB Diltiazem (Cardizem) 30 Mg Tab 30 MG PO QID for Regulate Heart Beat, #120 TAB Lisinopril (Lisinopril) 5 Mg Tab 2.5 MG PO DAILY for Prevent Heart Failure, #30 TAB Potassium Chloride Microencaps (Potassium Chloride Microencaps) 20 Meq Tab 20 MEQ PO DAILY for Electrolyte Replacement, #30 TAB Prednisone (Prednisone) 20 Mg Tab 20 MG PO DAILY for Control Inflammation, #2 TAB [Gentamicin 0.1% Cream] () 15 APPLIC/15 GM CR 1 APPLIC TOPICAL DAILY for wound care, #30 APPL Vernon Moore MD Jun 19, 2017 13:39
[2017-06-19] MEDS ORDERED: PHARMACY ORDERED LAB ONE (17:45)
--- NOTE | 2017-06-19 20:22 | EKG ---
Date Performed: 06/19/2017 Time Performed: 13:26:43 PTAGE: 72 years EKG: Sinus rhythm WITH FREQUENT VENTRICULAR PREMATURE COMPLEXES NONSPECIFIC ST & T-WAVE ABNORMALITY ABNORMAL RHYTHM EC G PREVIOUS TRACING : 05/31/2017 17.55 No significant change from previous tracing noted. DOCTOR: Mateus Oro Interpretating Date/Time 06/19/2017 20:21:44
== END 2017-06-19 14:59 | DRG 207 ==
LOC: NEPE 09:40 → NEDA 13:28 → N05B 19:04 → N03B 05-14 17:35 → N04B 05-16 22:48 → N03A 05-20 10:03 → N03B 05-29 17:13 → HOCA 06-04 13:14 → N06B 06-14 17:02
PROVIDERS: ADMIT Hospitalist; ATTEND Hospitalist
PROC: 5A1955Z Respiratory Ventilation, Greater than 96 Consecutive Hours (ICD-10-PCS; principal; 2017-05-20)
PROC: 0BH17EZ Insertion of Endotracheal Airway into Trachea, Via Natural or Artificial Opening (ICD-10-PCS; 2017-05-20)
PROC: 02HV33Z Insertion of Infusion Device into Superior Vena Cava, Percutaneous Approach (ICD-10-PCS; 2017-05-21)
DX: J18.9 Pneumonia, unspecified organism (principal); I50.23 Acute on chronic systolic (congestive) heart failure; N17.9 Acute kidney failure, unspecified; G93.40 Encephalopathy, unspecified; K56.609 Unspecified intestinal obstruction, unspecified as to partial versus complete obstruction; J96.21 Acute and chronic respiratory failure with hypoxia; I95.9 Hypotension, unspecified; E87.3 Alkalosis; I11.0 Hypertensive heart disease with heart failure; E46 Unspecified protein-calorie malnutrition; I42.9 Cardiomyopathy, unspecified; L97.919 Non-pressure chronic ulcer of unspecified part of right lower leg with unspecified severity; L97.929 Non-pressure chronic ulcer of unspecified part of left lower leg with unspecified severity; J44.0 Chronic obstructive pulmonary disease with (acute) lower respiratory infection; R04.2 Hemoptysis; J98.11 Atelectasis; J44.1 Chronic obstructive pulmonary disease with (acute) exacerbation; D69.59 Other secondary thrombocytopenia; E11.622 Type 2 diabetes mellitus with other skin ulcer; Z99.81 Dependence on supplemental oxygen; I48.2 Chronic atrial fibrillation; M19.90 Unspecified osteoarthritis, unspecified site; R00.0 Tachycardia, unspecified; E78.5 Hyperlipidemia, unspecified; I08.0 Rheumatic disorders of both mitral and aortic valves; F43.10 Post-traumatic stress disorder, unspecified; F54 Psychological and behavioral factors associated with disorders or diseases classified elsewhere; Z51.5 Encounter for palliative care; H10.89 Other conjunctivitis; E87.6 Hypokalemia; E86.0 Dehydration; D72.819 Decreased white blood cell count, unspecified; E11.65 Type 2 diabetes mellitus with hyperglycemia; Z66 Do not resuscitate; Z88.0 Allergy status to penicillin; Z87.891 Personal history of nicotine dependence; Z79.01 Long term (current) use of anticoagulants; Z79.82 Long term (current) use of aspirin; Z91.14 Patient's other noncompliance with medication regimen; Z86.718 Personal history of other venous thrombosis and embolism; Z78.1 Physical restraint status
CPT/HCPCS: 31500; 36556; 36600; 43753; 71045; 74018; 74019; 74177; 74250; 76937; 80048; 80053; 80069; 80074; 80202; 81001; 82248; 82306; 82550; 82607; 82746; 82805; 82948; 83010; 83036; 83605; 83615; 83690; 83735; 83880; 83970; 84100; 84132; 84439; 84443; 84484; 85007; 85014; 85018; 85025; 85027; 85044; 85384; 85610; 85730; 86022; 86160; 86705; 87040; 87070; 87205; 87340; 93005; 94002; 94003; 94150; 94640; 94664; 94667; 94668; 96361; 96374; J0456; J0696; J1120; J1644; J1652; J1815; J1940; J1956; J2060; J2250; J2405; J2765; J2920; J2930; J3370; J3480; J7030; J7040; J7050; J7512; Q9963; Q9967

== ENCOUNTER 2017-06-27 17:34 | Emergency (ER) | payer MEDICARE, OTHER ==
[~2017-06-27] VITALS: Ht 162.6 cm; Wt 73.0 kg
[~2017-06-27 17:34] MED LIST changes: +DILT120C50 PO; -DILT31TA PO; -GENTAMICIN 0.1% TOPICAL; +LEVA750T9 PO; +METR-1 PO; +NOVOLOGP2 SQ; +SERO25TA PO; +[UNRECOGNIZED DRUG - CODE] SQ
[2017-06-27 17:38] VITALS: BP 114/90; PULSE 82; RESP 38
--- NOTE | 2017-06-27 18:00 | PD ---
HPI Chief Complaint: Respiratory Distress Time Seen by Provider: 17:42 Travel History International Travel<30 days: No Contact w/Intl Traveler<30days: No Traveled to known affect area: No History of Present Illness HPI This is a 72-year-old male with a history of congestive heart failure, hypertension, diabetes mellitus, congestive heart failure, recent pneumonia, chronic extremity ulcers, who [facility] from the [facility] for [facility] breath. According to the paramedics there initially told the patient was having 3 days of shortness of breath that was progressive. When paramedics arrived, they found the patient to be tachypneic and hypoxic. They placed the patient on 100% nonrebreather. No further history was elicited. The patient was in agonal respirations when he arrived. With the paperwork sent, he had a valid DNR. [facility] Past Medical History Arthritis: Yes Cancer: No Cardiovascular Problems: Yes High Cholesterol: Yes Chest Pain: Yes Congestive Heart Failure: Yes COPD: Yes Endocrine: Yes (?PREDIABETES) Gastrointestinal Disorders: No Genitourinary: No Headaches: Yes Hypertension: Yes Immune Disorder: No Implanted Vascular Access Dvce: No Musculoskeletal: Yes Psychiatric: No Reproductive: No Respiratory: Yes ?: Not Past Surgical History Body Medical Devices: PT DENIES Other Surgery: No (DENIES) Social History Alcohol Use: No Tobacco Use: No Substance Use: No Allergies-Medications (Allergen,Severity, Reaction): Coded Allergies: Penicillins (Verified Allergy, Unknown, 04/03/17) Reported Meds & Prescriptions Reported Meds & Active Scripts Active Prednisone 20 Mg Tab 20 Mg PO BID Seroquel (Quetiapine Fumarate) 25 Mg Tab 25 Mg PO BID Flagyl (Metronidazole) 500 Mg Tab 500 Mg PO TID Novolog Inj (Insulin Aspart) 1,000 Unit/10 Ml Vial 2-12 Units SQ ACHS Max dose at bedtime ( ) units; sugars less than 70,(0) units; sugars 150-199,(2) units; sugars 200-249,(4) units; sugars 250-299,(7) units; sugars 300-349,(10) units; sugars greater than 349,(12)units Potassium Chloride Microencaps 20 Meq Tab 20 Meq PO Q12HR Lisinopril 5 Mg Tab 2.5 Mg PO DAILY Diltiazem CD 24 HR 120 Mg Caper 120 Mg PO DAILY Coreg (Carvedilol) 6.25 Mg Tab 3.125 Mg PO Q12HR Arixtra Inj (Fondaparinux) 7.5 Mg/0.6 Ml Syr 7.5 Mg SQ Q24H Levaquin (Levofloxacin) 750 Mg Tablet 750 Mg PO Q24H Oxygen (O2) Device Liter ALEXANDRA.CANULA CONTINUOUS Oxygen Concentrator Portable Gaseous 2 L/min via Nasal Canula Continuous For 99 months Santyl (Collagenase) 250 Unit/Gram Oin 1 Applic TOPICAL DAILY Dok (Docusate Sodium) 100 Mg Cap 100 Mg PO BID Furosemide 40 Mg Tab 40 Mg PO BID@,[address] (Aspirin) 81 Mg Tabdr 81 Mg PO DAILY Coumadin (Warfarin) 5 Mg Tab 5 Mg PO DAILY@1600 start tomorrow if INR <3 Review of Systems ROS Limitations: Clinical Condition (Patient unable to give any history) Physical Exam Narrative GENERAL: Well-developed male in severe respiratory distress with agonal respirations. SKIN: Focused skin assessment warm/dry. HEAD: Atraumatic. Normocephalic. EYES: No scleral icterus. No injection or drainage. ENT: No nasal bleeding or discharge. Mucous membranes pale and dry NECK: Trachea midline. No JVD. CARDIOVASCULAR: Heart rate was in the 50s and 60s. No obvious murmurs appreciated. RESPIRATORY: Agonal respirations with coarse rhonchi bilaterally. GASTROINTESTINAL: Abdomen soft, non-tender, nondistended. MUSCULOSKELETAL: No obvious deformities. No clubbing. No cyanosis. Chronic venous stasis changes. NEUROLOGICAL: Obtunded and unresponsive. Patient would not follow commands. Data Data Last Documented VS Vital Signs Date Time Temp Pulse Resp B/P (MAP) Pulse Ox O2 Delivery O2 Flow Rate FiO2 06/27/17 17:55 Non-Rebreather 15.00 06/27/17 17:40 40 06/27/17 17:38 82 114/90 (98) Orders MDM Medical Decision Making Medical Screen Exam Complete: Yes Emergency Medical Condition: Yes Differential Diagnosis CHF exacerbation versus pneumonia versus respiratory failure Narrative Course 72-year-old male with multiple medical conditions recent pneumonia, presents here in respiratory failure. Patient had agonal respirations. Shortly after arrival, patient bradycardia down and went into cardiac arrest. Given his DNR status, CPR was not initiated. Patient had ultrasound placed over his subxiphoid area which showed 0 cardiac activity. He was pronounced at 1759. Diagnosis Primary Impression: Acute cardiopulmonary arrest. Additional Impressions: History of cardiomyopathy History of recurrent pneumonia History of diabetes mild Disposition: 20 Condition: Kalin Coyle MD Jun 27, 2017 18:00
[2017-06-27 20:20] VITALS: BP 177/117; PULSE 84; RESP 16; O2SAT 97
--- NOTE | 2017-06-28 16:53 | EKG ---
Date Performed: 06/27/2017 Time Performed: 17:46:03 PTAGE: 72 years EKG: Significant baseline artifact precluding accurate interpretation. Irregular wide complex rh ythm concerning for idioventricular rhythm. Clinical correlation requested, as well as repeat EKG. PREVIOUS TRACING : 06/19/2017 13.26 DOCTOR: Brittany Polanco Interpretating Date/Time 06/28/2017 16:51:26
== END 2017-06-27 21:33 | disposition expired ==
LOC: NEPC 17:34
DX: I46.9 Cardiac arrest, cause unspecified (principal); I42.9 Cardiomyopathy, unspecified; Z87.01 Personal history of pneumonia (recurrent); E11.9 Type 2 diabetes mellitus without complications; Z66 Do not resuscitate; I11.0 Hypertensive heart disease with heart failure; I50.9 Heart failure, unspecified; E78.00 Pure hypercholesterolemia, unspecified; J44.9 Chronic obstructive pulmonary disease, unspecified; Z88.0 Allergy status to penicillin; Z79.899 Other long term (current) drug therapy; Z79.4 Long term (current) use of insulin
CPT/HCPCS: 93005; 99285